=== PATIENT | female | born 1965 | race Caucasian/White ===

== ENCOUNTER 2018-08-13 01:06 | Outpatient (CLI) | payer MEDICARE, MEDICAID, SELFPAY ==
--- NOTE | 2018-08-13 13:00 | DI.CT_ITS ---
SYMPTOM/DIAGNOSIS: LLL LUNG NODULE, R91.[address]: A noncontrast CT scan of the chest was performed. Comparison is made with . The thoracic aorta is of normal caliber. Heart size is within normal limits. No significant pericardial effusion is seen. No significant mediastinal or hilar adenopathy is present on this noncontrast examination. No axillary adenopathy is identified. No pleural effusion or pneumothorax is identified. There has been no change in the size of the well circumscribed nodule adjacent to the major fissure in the left lower lobe. No new pulmonary nodules are identified. No pulmonary infiltrates are seen. The tracheobronchial tree is unremarkable. Degenerative changes are seen in the spine. IMPRESSION: Stable left pulmonary nodule.
== END 2018-08-13 01:26 ==
PROVIDERS: PCP Family Medicine; Visit Provider Family Medicine
DX: R91.8 Other nonspecific abnormal finding of lung field (principal)
CPT/HCPCS: 71250

== ENCOUNTER 2018-09-03 15:04 | Outpatient (REF) | payer MEDICARE, MEDICAID, SELFPAY ==
--- NOTE | 2018-09-03 14:50 | SKI_PTH ---
PATIENT: Manoj Galeana LOC: [facility] U#:[id number] AGE/SX: 53/F ROOM: RE09/03/[address]: Willie Espinosa DO : 1965 BED: DIS: 09/03/2018 SPEC #: [id number] RECD: 09/04/18 12:26 STATUS: TOM RELeandro #: [id number] NI: 09/03/18 14:[address]: Willie Espinosa DEPT: Surgical Specimen RECD BY: Ana Schmitz ENTERED: 09/04/18 12:27 SP TYPE: SHANE YODER DR: Jonathan Smiht Tissues: 1 - SKIN BIOPSY(SHAVE/PUNCH) 2 - SKIN BIOPSY(SHAVE/PUNCH) 3 - SKIN BIOPSY(SHAVE/PUNCH) Procedures: SKIN LEVEL 4 Comments: [id number]
== END 2018-09-03 15:24 ==
LOC: LBN 15:04
PROVIDERS: PCP Family Medicine; Visit Provider Otolaryngology Otolaryngology/Facial Plastic Surgery
DX: D22.39 Melanocytic nevi of other parts of face; D22.5 Melanocytic nevi of trunk
CPT/HCPCS: 88305

== ENCOUNTER 2018-11-29 13:13 | Outpatient (CLI) | payer MEDICARE, MEDICAID, SELFPAY ==
[2018-11-29 14:24] LABS: ESR 12 MM/HR (0-30)
[2018-11-29 14:25] LABS: Anion Gap 10.1 mmol/L (3-11); BUN 14 mg/dL (7-18); CO2 28.9 mmol/L (21.0-32.0); CREATININE 0.85 mg/dL (0.55-1.02); Chloride 104 mmol/L (98-107); Glucose 243 mg/dL (70-100); Potassium 3.9 mmol/L (3.5-5.1); Sodium 143 mmol/L (136-145)
[2018-11-29 14:46] LABS: FREE T4 1.34 ng/dL (0.76-1.46)
== END 2018-11-29 13:33 ==
PROVIDERS: PCP Family Medicine; Visit Provider Family Medicine
DX: E03.9 Hypothyroidism, unspecified (principal); M79.7 Fibromyalgia; G43.909 Migraine, unspecified, not intractable, without status migrainosus; E11.9 Type 2 diabetes mellitus without complications
CPT/HCPCS: 36415; 80048; 85652; 84439; 84443

== ENCOUNTER 2019-04-11 11:44 | Emergency (ER) | payer MEDICARE, MEDICAID, SELFPAY ==
[2019-04-11] VITALS (9 sets, daily range): BP systolic 115–137; BP diastolic 59–67; PULSE 54–60; RESP 13–19; TEMP 36.7; O2SAT 93–97
--- NOTE | 2019-04-11 12:04 | DI.RAD_ITS ---
SYMPTOM/DIAGNOSIS: CENTRAL AND EPIGASTRIC CP PA AND LATERAL CHEST: 04/11 The heart is normal in size. The lungs are clear. The mediastinal structures and pleura appear intact. CONCLUSION: Normal chest.
[2019-04-11] MEDS: Lidocaine 5% Patch 1 PATCH TP (12:15)
--- NOTE | 2019-04-11 12:18 | ED.GENADUL_ITS ---
Discharge Plan Disposition Patient Disposition: HOME Condition: Good Discharge Details Chief Complaint: Palpitatns Clinical Impression: Chest pain, Intermittent palpitations Primary Care Provider: Jonathan Smith ED Provider: Marlon Reyes Home Meds and New Rx's Prescriptions: No Action sertraline 100 MG tablet 200 mg PO DAILY RF: 0 atenolol 25 MG tablet 75 mg PO DAILY RF: 0 cetirizine 10 MG tablet 10 mg PO DAILY RF: 0 levothyroxine [Synthroid] 50 MCG tablet 50 mcg PO DAILY RF: 0 levothyroxine [Synthroid] 200 MCG tablet 200 mcg PO DAILY RF: 0 furosemide 20 MG tablet 20 mg PO DAILY RF: 0 lisinopril 40 MG tablet 40 mg PO DAILY RF: 0 rosuvastatin [Crestor] 20 MG tablet 40 mg PO DAILY RF: 0 budesonide-formoterol [Symbicort] 10.2 GM HFA aerosol inhaler 2 puff Inhalation BID RF: 0 lidocaine patches 5 % Topical PRN RF: 0 cholecalciferol (vitamin D3) 1,000 UNITS tablet 1,000 unit PO DAILY RF: 0 potassium gluconate 99 MG tablet 1 tab PO DAILY RF: 0 insulin lispro [Humalog U-100 Insulin] 100 UNIT/ML cartridge 25 unit SQ AC & HS RF: 0 hydrocodone-acetaminophen 1 TAB tablet 1 tab PO Q3H PRN PRN (Reason: Pain) Qty: 15 RF: 0 levofloxacin [Levaquin] 750 MG tablet 750 mg PO DAILY Qty: 4 RF: 0 ondansetron 4 MG tablet,disintegrating 4 mg PO BID PRN PRNQty: 8 RF: 0 Discharge Instructions Instructions: Chest Pain (ED), Palpitations (ED) Additional Instructions: If you notice any worsening of your symptoms, or any new symptoms such as vomiting, diarrhea, fever, chills, shortness of breath, chest pain, numbness, weakness, or fainting , please return immediately to the emergency department for reevaluation. Please follow up with your primary care provider as soon as possible for reassessment and reevaluation. As always, it was a pleasure participating in your medical care today. Referrals: Jonathan Smith [Primary Care Provider] - Medical Decision Making This is a 54-year-old female with past medical history of previous obesity, now notably improved with gastric bypass, thyroid secondary to Graves' disease with subsequent hypothyroidism, who presents today for 3 days of mild palpitations. She has some very minimal epigastric discomfort as well. No food component. No exertional component. No significant reproducible component on exam. The patient does have continued sensation of palpitations, however review of the monitor during these episodes shows no evidence of ectopy or other abnormality. EKG is otherwise unremarkable. With the patient's risk factors, a ge and obesity we will evaluate for cardiac etiology to her symptoms. We will give Toradol, and Lidoderm patch and reassess. 4:12 PM Patient's laboratory work-up has returned, no significant white count, hemoglobin stable, normal platelets, normal electrolytes, normal renal function, troponin x2 is less than 0.05, repeat EKG unremarkable. Magnesium normal, proBNP and TSH normal. Lipase normal. Patient states that she feels well. She still has that atypical sensation, however continued telemetry and EKGs show no actual cardiographic correlation. I feel her symptoms are inconsistent with ACS, and potentially unrelated to the heart. No clinical evidence of dissection or aneurysm on exam or with history. Patient feels very reassured with the benign work-up at this point. There may be a component of muscle spasm or GI reflux that may be causing her symptoms. At this point after serial troponins and EKGs, and otherwise benign work-up we did discuss further options, and the patient feels ready to go home. She would like to be discharged at this time. Patient will be discharged with close follow-up with her PCP. We discussed reasons for which to promptly return and red flags which return she understands. I have extensively reviewed the treatment plan and discharge instructions with the patient. I have addressed all patient concerns at this time. The patient was made aware of what symptoms to monitor for that would warrant a return to the emergency department. Discussed the plan with the patient, they demonstrate verbal understanding and agreement with our assessment and plan at this time. EKG 11: 54 Rate 56, intervals normal, sinus bradycardia, no significant ST elevations or depressions, there is an inverted T wave in V1, as well as lead III. Q wave is present in lead III. EKG 15: 16 Rate 51, sinus bradycardia, intervals normal, no significant ST elevations or depressions. Inverted T wave in V1 as well as lead III. No evidence of ACS, dysrhythmia, or other significant abnormality. Exam(s) a RAD:XR chest 2V PA & lateral SYMPTOM/DIAGNOSIS: CENTRAL AND EPIGASTRIC CP PA AND LATERAL CHEST: 04/11 The heart is normal in size. The lungs are clear. The mediastinal structures and pleura appear intact. CONCLUSION: Normal chest. Ordered By: Marlon Reyes DO CC: WILDA General Date/Time Provider Initiated Documentation: 04/11/19 11:56 . HPI Narrative: This is a 54-year-old female with a past medical history of Graves' disease, and now subsequent hypothyroidism, gastric bypass, who presents today for evaluation of palpitations. The patient states that for the last 3 days she has had mild palpitations which she describes as a light fluttery sensation in her upper chest. She admits to a very minimal discomfort, but denies any chest pain, chest tightness, chest heaviness, arm neck or shoulder pain, shortness of breath, cough, pleuritic chest pain, or other complaints. The pain and symptoms are slightly worsened when she sits upright. There is no exertional component though. She denies any history of cardiac disease. Denies PE risk factors such as recent long car rides, immobilization, recent surgery, prior history of DVT or PE, family history of PE or DVT, morbid obesity, exogenous estrogen and smoking, hemoptysis, history of cancer. She denies any tobacco abuse. She denies any history of arrhythmia. Related Data Home Medications Medication Instructions Recorded Confirmed Lidocaine Patches 5 % TOPICAL PRN 08/23/13 06/19/16 atenolol 75 mg PO DAILY tab-cap 08/23/13 06/19/16 budesonide-formoterol [Symbicort] 2 puff INHALATION BID inhaler 08/23/13 06/19/16 cetirizine 10 mg PO DAILY tab-cap 08/23/13 06/19/16 furosemide 20 mg PO DAILY tab-cap 08/23/13 06/19/16 levothyroxine [Synthroid] 50 mcg PO DAILY tab-cap 08/23/13 06/19/16 levothyroxine [Synthroid] 200 mcg PO DAILY tab-cap 08/23/13 06/19/16 lisinopril 40 mg PO DAILY tab-cap 08/23/13 06/19/16 rosuvastatin [Crestor] 40 mg PO DAILY tab-cap 08/23/13 06/19/16 sertraline 200 mg PO DAILY tab-cap 08/23/13 06/19/16 cholecalciferol (vitamin D3) 1,000 unit PO DAILY 12/22/15 06/19/16 hydrocodone-acetaminophen 1 tab PO Q3H PRN PRN #15 tab 12/22/15 06/19/16 insulin lispro [Humalog U-100 25 unit SQ AC & HS 12/22/15 06/19/16 Insulin] potassium gluconate 1 tab PO DAILY 12/22/15 06/19/16 levofloxacin [Levaquin] 750 mg PO DAILY #4 tablet 06/13/16 06/19/16 ondansetron 4 mg PO BID PRN PRN #8 tabef 06/13/16 06/19/16 Previous Rx's Medication Instructions Recorded hydrocodone-acetaminophen 1 tab PO Q3H PRN PRN #15 tab 12/22/15 levofloxacin [Levaquin] 750 mg PO DAILY #4 tablet 06/13/16 ondansetron 4 mg PO BID PRN PRN #8 tabef 06/13/16 Allergies Allergy/AdvReac Type Severity Reaction Status Date / Time latex Allergy Severe Skin Rash Unverified 06/19/16 16:26 Sulfa (Sulfonamide Allergy Severe vomiting/ra Unverified 06/19/16 16:26 Antibiotics) sh/migraine amlodipine AdvReac Severe suicadal Unverified 06/19/16 16:26 thoughts fluoxetine HCl [From Prozac] AdvReac Severe anxiety/peggy Unverified 06/19/16 16:26 cidal metformin AdvReac Severe diarrhea Unverified 06/19/16 16:26 pregabalin [From Lyrica] AdvReac Severe flatulence/ Unverified 06/19/16 16:26 suicidal sumatriptan [From Imitrex] AdvReac Severe suicidal Unverified 06/19/16 16:26 tramadol AdvReac Severe anxiety,suicidal Unverified 06/19/16 16:26 thoughts General Stated Complaint: Palpitatns RICHAR: 2 Review of Systems Review of Systems All systems reviewed & are unremarkable except as noted in HPI and below PFSH Medical History Asthma Back pain Depression Diabetes type 2, controlled Diarrhea GERD (gastroesophageal reflux disease) Ganglion cyst of wrist Hiatal hernia Hx of ovarian cyst Hyperlipidemia Hypertension Hypothyroidism Migraine Morbid obesity with BMI of 50.0-59.9, adult Peripheral neuropathy Risk for falls Sleep apnea Urinary incontinence Surgical History ganglion cyst excision Social History Smoking/Tobacco Use Status: Never Drug use: Never Do you feel safe at home: Yes Do you feel safe in your relationship?: Yes Exam Narrative Exam Narrative: 1.Const: Well-nourished, Well-developed, appearing stated age 2.Eyes: PERRL, no conjunctival injection, and symmetrical lids. 3.ENT: Atraumatic external nose and ears. Moist MM. Neck: Symmetric, trachea midline, No thyromegaly. 4.CVS: +S1/S2, No murmurs or gallops. Peripheral pulses 2+ and equal in all extremities. Brisk capillary refill in all extremities. 5.RESP: Unlabored respiratory effort. Clear to auscultation bilaterally. No wheezes rales or rhonchi 6.GI: Soft, Nontender/Nondistended, No hepatosplenomegaly. No guarding or rebound. No pain at McBurney's point, negative Garcia sign. 7.MSK: Normocephalic/Atraumatic, Extremities w/o deformity or ttp No cyanosis or clubbing, Normal movement of all extremities 8.Skin: Warm, Dry. No rashes or lesions. 9.Neuro: nursing home aide II-XII grossly intact. Sensation grossly intact, no focal neurologic deficits. 10.Psych: (AAO) x3. Appropriate mood and affect Course Vital Signs Temperature 36.7 C 04/11/19 11:57 Pulse 59 L 04/11/19 11:57 Respiratory Rate 14 04/11/19 11:57 Blood Pressure 137/64 04/11/19 11:57 Temperature 36.7 C 04/11/19 11:57 Temperature Source Skin 04/11/19 11:57 Pulse 59 L 04/11/19 11:57 Respiratory Rate 14 04/11/19 11:57 Respiratory Effort 04/11/19 12:00 Blood Pressure 137/64 04/11/19 11:57 Oxygen Delivery Method Room Air 04/11/19 11:57 Oxygen Flow Rate 0 04/11/19 11:57
[2019-04-11 12:22] LABS: Abs Immature Grans 0.03 k/cumm (0.0-0.09); Absolute Basophil Count 0.04 k/cumm (0.0-0.2); Absolute Eosinophil Count 0.15 k/cumm (0.0-0.7); Absolute Lymphocyte Count 2.17 k/cumm (1.2-3.4); Absolute Monocyte Count 0.46 k/cumm (0.11-0.7); Absolute Neutrophil Count 4.48 k/cumm (1.2-6.7); Basophils % 0.5; HCT 45.7 % (36.0-46.0); HGB 15.7 g/dL (12.0-15.5); Immature Grans % 0.4; Lymphocytes % 29.6; Mean Corp. HGB Concentration 34.4 g/dL (32.0-36.0); Mean Corpuscular Hemoglobin 29.1 pg (27.0-33.0); Mean Corpuscular Volume 84.6 fL (80-95); Mean Platelet Volume 11.4 fL (8.0-11.0); Monocytes % 6.3; Neutrophils % 61.2; Platelet Count 203 x1000/uL (130-400); RBC Distribution Width 13.1 % (11.7-14.6); White Blood Cell Count 7.33 k/cumm (4.4-10.8)
[2019-04-11 12:39] LABS: PTT Activated 20.8 sec (21.0-31.4); Prothrombin Time 9.9 sec (9.3-11.0)
[2019-04-11 12:47] LABS: ALT 36 U/L (12-78); AST 15 U/L (15-37); Albumin 3.8 g/dL (3.4-5.0); Alkaline Phosphatase 116 U/L (46-116); Anion Gap 9.9 mmol/L (3-11); BUN 14 mg/dL (7-18); Bilirubin, Total 1.2 mg/dL (0.2-1.0); CO2 27.1 mmol/L (21.0-32.0); CREATININE 0.73 mg/dL (0.55-1.02); Calcium 9.8 mg/dL (8.5-10.1); Chloride 105 mmol/L (98-107); Glucose 165 mg/dL (70-100); Lipase 122 U/L (73-393); Potassium 3.9 mmol/L (3.5-5.1); Sodium 142 mmol/L (136-145); TSH (W/Ref FT4) 0.37 uIU/mL (0.358-3.74); Total Protein 7.4 g/dL (6.4-8.2)
[2019-04-11 12:51] LABS: Troponin I < 0.05 ng/mL (0.00-0.06)
[2019-04-11 13:21] LABS: NT-proBNP 18 pg/mL
[2019-04-11] MEDS: Ketorolac 30 MG/ML VIAL IVP (13:38)
[2019-04-11 14:54] LABS: Magnesium 1.9 mg/dL (1.8-2.4)
[2019-04-11 15:45] LABS: Troponin I < 0.05 ng/mL (0.00-0.06)
== END 2019-04-11 16:23 | disposition home or self-care (01) ==
PROVIDERS: Emergency Provider Student in an Organized Health Care Education/Training Program; PCP Family Medicine
DX: R07.9 Chest pain, unspecified (principal); R00.2 Palpitations; R00.1 Bradycardia, unspecified; Z98.0 Intestinal bypass and anastomosis status
CPT/HCPCS: 36415; 80053; 83690; 93005; 96374; 99285; 71046; 83735; 83880; 84443; 84484; 85025; 85610; 85730; 93010; J1885

== ENCOUNTER 2019-05-16 10:10 | Outpatient (CLI) | payer MEDICARE, MEDICAID, SELFPAY ==
--- NOTE | 2019-05-16 09:56 | DI.RAD_ITS ---
SYMPTOM/DIAGNOSIS: PAIN RIGHT KNEE: Narrowing of the medial tibial femoral joint space, articular sclerosis and periarticular hypertrophic spurring is demonstrated. Also as judged from the lateral projection, there are severe degenerative changes involving the patellofemoral joint. SUMMARY: Findings consistent with severe DJD
--- NOTE | 2019-05-16 09:56 | DI.RAD_ITS ---
SYMPTOM/DIAGNOSIS: PAIN LEFT KNEE: Narrowing of the medial tibial femoral joint space is noted. There is articular sclerosis and mild divine-articular hypertrophic spurring. Also degenerative changes involving the patellofemoral joint are apparent. SUMMARY: Findings consistent with moderately severe DJD
== END 2019-05-16 10:30 ==
PROVIDERS: PCP Family Medicine; Referring Provider Family Medicine; Visit Provider Orthopaedic Surgery
DX: M25.561 Pain in right knee (principal); M17.11 Unilateral primary osteoarthritis, right knee; M25.562 Pain in left knee; M17.12 Unilateral primary osteoarthritis, left knee; E11.9 Type 2 diabetes mellitus without complications; I10 Essential (primary) hypertension
CPT/HCPCS: 99211; 99213; 73560

== ENCOUNTER 2019-06-20 03:41 | Outpatient (CLI) | payer MEDICARE, MEDICAID, SELFPAY ==
--- NOTE | 2019-06-20 15:00 | DI.MAMMO_ITS ---
SYMPTOMS/DIAGNOSIS: SCREENING, Z12.39 MAMMOGRAM: Mammograms were interpreted according to the usual protocol including computer analysis with CAD system, tomosynthesis and C view imaging. The breasts are of moderate density with fairly symmetrical distribution of fibroglandular tissue. No dominant mass or clumped microcalcification is identified in either breast. Current examination is compared with previous examinations including October 2017 and there has been no gross interval change in appearance in comparison with the previous studies. CONCLUSION: No specific evidence of malignancy at this time. Routine screening examinations are suggested at yearly intervals in this age group according to the ACS/ACR guidelines. Category 1, breast density category B. MQSA ASSESSMENT OF FINDINGS: Negative. Category 1. Patient will receive a letter notifying them of these results. BI-RADS category B. There are scattered areas of fibroglandular density.
== END 2019-06-20 04:01 ==
PROVIDERS: PCP Family Medicine; Visit Provider Family Medicine
DX: Z12.31 Encounter for screening mammogram for malignant neoplasm of breast (principal)
CPT/HCPCS: 77063; 77067

== ENCOUNTER 2020-07-07 17:29 | Outpatient (REF) | payer MEDICARE, MEDICAID, SELFPAY ==
--- NOTE | 2020-07-07 11:00 | PAPFT_PTH ---
PATIENT: Manoj Galeana LOC: [facility] U#:[id number] AGE/SX: 55/F ROOM: RE07/07/[address]: Bijal Grace : 1965 BED: DIS: 07/07/2020 SPEC #: [id number] RECD: 07/07/20 18:19 STATUS: TOM RELeandro #: [id number] NI: 07/07/20 11:[address]: Bijal Grace DEPT: [facility] Cytology RECD BY: Ana Schmitz ENTERED: 07/07/20 18:20 SP TYPE: PAPFT OTHR DR: Jonathan Smith Tissues: 1 - CX/ENDOCX FOR PAP SMEARS Procedures: PAP THIN PREP/UVM Screening HPV DNA PROBE Comments: [id number]
[2020-07-07 19:39] LABS: ALT 32 U/L (14-59); AST 12 U/L (15-37); Albumin 3.9 g/dL (3.4-5.0); Alkaline Phosphatase 105 U/L (46-116); Anion Gap 5.8 mmol/L (3-11); BUN 18 mg/dL (7-18); Bilirubin, Total 0.9 mg/dL (0.2-1.0); CO2 31.2 mmol/L (21.0-32.0); Calculated LDL 78 mg/dL (<100); Chloride 107 mmol/L (98-107); Cholesterol 155 mg/dL (<200); Glucose 158 mg/dL (74-106); HDL Cholesterol 52 mg/dL (40-60); Sodium 144 mmol/L (136-145); TSH (W/Ref FT4) 1.14 uIU/mL (0.36-3.74); Total Protein 6.7 g/dL (6.4-8.2); Triglyceride 128 mg/dL (<150)
== END 2020-07-07 17:49 ==
LOC: NCHCN 17:29
PROVIDERS: PCP Family Medicine; Visit Provider Nurse Practitioner Family
DX: E11.9 Type 2 diabetes mellitus without complications (principal); E78.5 Hyperlipidemia, unspecified; Z68.42 Body mass index [BMI] 45.0-49.9, adult; E03.9 Hypothyroidism, unspecified; Z12.4 Encounter for screening for malignant neoplasm of cervix; Z11.51 Encounter for screening for human papillomavirus (HPV)
CPT/HCPCS: 80053; 80061; 88142; 84443; 87624

== ENCOUNTER 2020-07-08 13:15 | Outpatient (CLI) | payer MEDICARE, MEDICAID, SELFPAY ==
--- NOTE | 2020-07-08 | DI.RAD_ITS ---
EXAM: XR HIP RT COMPLETE AP PELVIS INDICATION: RT HIP PAIN, M25.551. COMPARISON: No exams were available for comparison TECHNIQUE: 2D digital imaging was performed. FINDINGS: The right hip is fairly well maintained with only mild subchondral sclerosis. The bones are intact. No acute fracture or dislocation. Degenerative changes are seen in the lower lumbar spine and sacro iliac joints. The bones are normally mineralized. The soft tissues are unremarkable. IMPRESSION: DATA REPOSITORY: RADIATION DOSE DELIVERED:
== END 2020-07-08 13:35 ==
PROVIDERS: PCP Family Medicine; Visit Provider Family Medicine
DX: M25.551 Pain in right hip (principal)
CPT/HCPCS: 73502

== ENCOUNTER 2020-09-15 18:44 | Outpatient (REF) | payer MEDICARE, MEDICAID, SELFPAY | END 2020-09-15 19:04 | LOC: NCHCN 18:44 | PROVIDERS: PCP Family Medicine; Visit Provider Nurse Practitioner Family | DX: N39.0 Urinary tract infection, site not specified (principal) | CPT/HCPCS: 87077; 87086; 87186 ==

== ENCOUNTER → 2020-12-31 13:04 | Outpatient (BNVA) | payer MEDICARE, MEDICAID, SELFPAY | PROVIDERS: PCP Family Medicine; Referring Provider Family Medicine; Visit Provider Physical Therapy Assistant | DX: Z12.11 Encounter for screening for malignant neoplasm of colon (principal); Z86.010 Personal history of colon polyps ==

== ENCOUNTER 2021-01-08 01:54 | Outpatient (CLI) | payer MEDICARE, MEDICAID, SELFPAY ==
[2021-01-08 12:04] LABS: Source Nasal/Nares
[2021-01-08 14:36] LABS: COVID-19 PCR Negative (Negative)
== END 2021-01-08 01:55 | disposition home or self-care (01) ==
LOC: LBO 01:55
PROVIDERS: PCP Family Medicine; Visit Provider Surgery
DX: Z20.822 Contact with and (suspected) exposure to COVID-19 (principal); Z01.818 Encounter for other preprocedural examination
CPT/HCPCS: 87635

== ENCOUNTER 2021-01-11 08:17 | Day surgery (SDC) | payer MEDICARE, MEDICAID, SELFPAY ==
--- NOTE | 2021-01-11 06:30 | W.COLOREPORT ---
Date of service: 01/11/21 Time of Service: 09:57 Colonoscopy Report Date of procedure: 01/11/21 Pre-op diagnosis general: Hx of polyps Post-op diagnosis procedure note: same Procedure: Colonoscopy with polypectomy Surgeon: Daija Nye Anesthesia Type: General:No Airway (ASA 3/Guido Navas, JAKUB) Estimated blood loss (mL): 3 Pathology: other (sigmoid colon) Complications: None Disposition: same day Indications: The patient is here for Colonoscopy pre-op. Her last screening was in 2014 at [facility] [place], which was remarkable for tubular adenomatous and sessile serrated adenoma. She has no family history of colon cancer. She expresses frequently feel constipated and full. -Discussed colonoscopy bowel prep as well as the procedure. Discussed possible complications of the procedure to include bleeding, pain, perforation, missed small lesion/polyp, sore throat, aspiration and adverse reaction to the medications. Questions were answered to patient?s satisfaction. No guarantees were implied or given. Prep: Miralax/Dulcolax Procedure Start Time: : Procedure End Time: 10:23 Retraction Time: 13 minutes Findings: One polyp in the sigmoid colon Procedure Description: After informed consent was obtained the patient was taken to the procedure room and placed in a left decubitous position. Monitors were applied and a time out was done. The patients name, date of , procedure, allergies to medications and metal in their body was reviewed. The patient was then sedated. Once sedated and comfortable a rectal exam was done. External exam revealed a hemorrhoidal skin tag at the 12 o'clock position. Internal exam revealed a normal sphincter tone and no palpable masses. The scope was then introduced and retro-flexed. Hemorrhoidal skin tags were noted on retroflexion. No polyps or masses were identified on retro-flexion. The scope was then advanced to the cecum without difficulty. The ileocecal vlave and appendiceal orifice were identified. The prep was adequate. The scope was then slowly retracted over 13 minutes back into the rectum. Polyps were removed with cold forceps in the sigmoid colon. There was no diverticulosis noted. The scope was removed and the patient was woken up and taken back to Same day surgery in stable condition. The patient tolerated the procedure well and there were no immediate complications. Follow up: The patient should follow up in 5 years unless they develop changes in bowel habits or other new gastrointestinal complaints.
--- NOTE | 2021-01-11 06:31 | W.PM.DSUDISC ---
Discharge Plan Disposition Patient Disposition: HOME Condition: Good Discharge Details Reason For Visit: Colonoscopy Attending Provider: Daija Nye Primary Care Provider: Jonathan Smith Home Meds and New Rx's Prescriptions: Continued calcium citrate 1,000 mg tablet 1,000 mg PO DAILY RF: 0 levothyroxine [Synthroid] 200 MCG tablet 200 mcg PO DAILY RF: 0 rosuvastatin [Crestor] 20 MG tablet 40 mg PO DAILY RF: 0 atenolol 25 mg tablet 50 mg PO DAILY RF: 0 metformin 500 mg tablet 500 mg PO DAILY RF: 0 duloxetine 30 mg capsule,delayed release(DR/EC) 30 mg PO DAILY RF: 0 cholecalciferol (vitamin D3) 25 mcg (1,000 unit) capsule 25 mcg PO DAILY RF: 0 Januvia 100 mg tablet 100 mg PO DAILY RF: 0 mecobalamin (vitamin B12) 1,000 mcg tablet,chewable 1,000 mcg PO DAILY RF: 0 levalbuterol tartrate [Xopenex HFA] 45 mcg/actuation HFA aerosol inhaler 2 inh inhalation Q6H RF: 0 gabapentin 100 mg capsule 100 mg PO TID RF: 0 albuterol sulfate [Ventolin HFA] 90 mcg/actuation HFA aerosol inhaler 2 puff inhalation Q6H PRNRF: 0 loratadine [Allergy Relief (loratadine)] 10 mg tablet 10 mg PO DAILY RF: 0 Humalog U-100 Insulin 100 UNIT/ML cartridge 25 unit SQ AC & HS RF: 0 ondansetron 4 MG tablet,disintegrating 4 mg PO BID PRN PRNQty: 8 RF: 0 Discontinued polyethylene glycol 3350 17 gram/dose powder 238 g PO ONCE Qty: 238 RF: 0 bisacodyl [Dulcolax (bisacodyl)] 5 mg tablet,delayed release (DR/EC) 5 mg PO ONCE Qty: 4 RF: 0 Discharge Instructions Instructions: Colorectal Polyps (DC), Hemorrhoids (DC) Additional Instructions: Findings: One small polyp external hemorrhoidal skin tag Internal hemorrhoidal skin tags Follow up: 5 years Please call if you develop: fevers >101.5 Nausea or Vomiting Abdominal pain that is not transient DAY SURGERY UNIT POST ENDOSCOPY INSTRUCTIONS 1. Because there will be medication in your system for the next 24 hours, you may feel a little sleepy. Your coordination will be affected. Therefore: a. Do not drive or operate dangerous equipment for 24 hours. b. Do not drink alcohol beverages for 24 hours (not even beer). c. Plan to go home and rest for the day. 2. Generally there are no restrictions on your activity after a day or so has gone by, but you may feel a bit fatigued for a few days. 3 After you arrive home you may have a light meal and return to a normal diet as you can tolerate it without feeling sick to your stomach. 4. After surgery, you may feel pain or discomfort. This should be only transient, but if it persists please contact your doctor. 5. If there are any questions regarding the findings of your procedure, please feel free to contact your doctor. 6. If you are unable to contact your doctor with a problem, contact the hospital at [phone]. 7. Continue all your regular medications unless directed otherwise. I understand the above instructions and have no questions. Signature of Patient or Responsible Adult Escort Date/Time Name of Responsible Adult Escort Signature of Nurse Date/Time Activity:: Activity as Tolerated Diet:: high fiber Discharge Orders Discharge Orders: Discharge Order (Routine); Ordered 01/11/21 Ordered By: Daija Nye
[2021-01-11 08:24] VITALS: BP 138/75; PULSE 68; RESP 16; TEMP 36.6; O2SAT 95
[2021-01-11] MEDS: Lactated Ringers 1,000 ML 80 ML IV (08:57)
--- NOTE | 2021-01-11 09:59 | BOWEL_PTH ---
PATIENT: Manoj Galeana LOC: [facility] U#:[id number] AGE/SX: 55/F ROOM: RE01/11/[address]: Daija Nye MD : 1965 BED: DIS: 01/11/2021 SPEC #: [id number] RECD: 01/11/21 13:01 STATUS: TOM RE #: [id number] NI: 01/11/21 09:[address]: Daija Nye DEPT: Surgical Specimen RECD BY: Ana Schmitz ENTERED: 01/11/21 13:02 SP TYPE: Bowel OTHR DR: Jonathan Smith Tissues: 1 - BIOPSY BOWEL Procedures: GROSS AND MICRO LEVEL 4 Comments: [id number]
[2021-01-11 10:54] VITALS: BP 130/70; PULSE 70; RESP 16; TEMP 36.7; O2SAT 94
== END 2021-01-11 11:15 | disposition home or self-care (01) ==
LOC: SUR 08:18
PROVIDERS: PCP Family Medicine; Visit Provider Surgery
PROC: 0DJD8ZZ Inspection of Lower Intestinal Tract, Via Natural or Artificial Opening Endoscopic (ICD-10-PCS; CPT 45378; principal; 2021-01-11 09:45)
DX: Z12.11 Encounter for screening for malignant neoplasm of colon (principal); Z86.010 Personal history of colon polyps; D12.5 Benign neoplasm of sigmoid colon; K64.4 Residual hemorrhoidal skin tags; I10 Essential (primary) hypertension
CPT/HCPCS: 45380; 88305; J2001

== ENCOUNTER → 2021-02-11 09:02 | Outpatient (BNVA) | payer MEDICARE, MEDICAID, SELFPAY | PROVIDERS: PCP Family Medicine; Referring Provider Family Medicine; Visit Provider Student in an Organized Health Care Education/Training Program | DX: M17.31 Unilateral post-traumatic osteoarthritis, right knee (principal); E66.9 Obesity, unspecified | CPT/HCPCS: 99213 ==

== ENCOUNTER 2021-03-03 15:16 | Outpatient (CLI) | payer MEDICARE, MEDICAID, SELFPAY ==
--- NOTE | 2021-03-03 14:45 | DI.RAD_ITS ---
Exam(s) XR KNEE RT 1V EXAM: XR KNEE RT 1V CLINICAL HISTORY: PRE OP R TKA. TECHNIQUE: 2D digital imaging was performed. COMPARISON: CR XR knee RT 2V AP,lat from 05/16/2019 FINDINGS: Lateral view reveals advanced degenerative changes. No obvious fractures. No obvious joint effusion IMPRESSION: DATA REPOSITORY: RADIATION DOSE DELIVERED:
--- NOTE | 2021-03-03 15:50 | DI.RAD_ITS ---
Exam(s) XR STANDING ALIGNMENT EXAM: XR STANDING ALIGNMENT CLINICAL HISTORY: PRE OP R TKA. TECHNIQUE: 2D digital imaging was performed. COMPARISON: CR XR knee RT 2V AP,lat from 05/16/2019 CR XR knee LT 2V AP,lat from 05/16/2019 CR XR knee LT 2V AP,lat from 05/16/2019 CR XR HIP RT COMPLETE AP PELVIS from 07/08/2020 FINDINGS: Hips appear unremarkable. Advanced degenerative changes are noted in the right knee moderate degener ative changes in the left knee. Right knee solvent is tricompartmental. Most prominent degenerative changes in the left knee is in the medial compartment. Also moderate degenerative changes in the pa tellofemoral and mild degenerative changes in the lateral compartment. Ankles appear unremarkable. Talar domes unremarkable. IMPRESSION: DATA REPOSITORY: RADIATION DOSE DELIVERED:
== END 2021-03-03 15:17 | disposition home or self-care (01) ==
LOC: DIORS 15:17
PROVIDERS: PCP Family Medicine; Referring Provider Family Medicine; Visit Provider Physician Assistant
DX: M25.561 Pain in right knee (principal); M17.11 Unilateral primary osteoarthritis, right knee
CPT/HCPCS: 73560; 77073

== ENCOUNTER 2021-03-12 02:09 | Outpatient (CLI) | payer MEDICARE, MEDICAID, SELFPAY ==
[2021-03-12 11:17] LABS: Source Nasal/Nares
[2021-03-12 18:41] LABS: COVID-19 PCR Negative (Negative)
== END 2021-03-12 02:10 | disposition home or self-care (01) ==
PROVIDERS: PCP Family Medicine; Visit Provider Student in an Organized Health Care Education/Training Program
DX: Z20.822 Contact with and (suspected) exposure to COVID-19 (principal); Z01.818 Encounter for other preprocedural examination
CPT/HCPCS: 87635

== ENCOUNTER 2021-03-12 02:10 | Outpatient (CLI) | payer MEDICARE, MEDICAID, SELFPAY ==
[2021-03-12 10:35] LABS: HCT 45.4 % (36.0-46.0); HGB 15.2 g/dL (11.2-15.7); MCH 28.4 pg (27.0-33.0); MCHC 33.5 % (32.0-36.0); MCV 84.7 fL (80-95); MPV 10.9 fL (8.0-11.0); Platelet Count 228 10^3/uL (130-400); RBC 5.36 10^6/uL (3.93-5.22); RDW 12.3 % (11.7-14.6); RDW-SD 37.7 fL
[2021-03-12 10:55] LABS: Hemoglobin A1C 8.5 % (<5.7)
[2021-03-12 12:14] LABS: Anion Gap 7.2 mmol/L (3-11); BUN 10 mg/dL (7-18); CO2 29.8 mmol/L (21.0-32.0); CREATININE 0.6 mg/dL (0.55-1.02); Calcium 9.9 mg/dL (8.5-10.1); Chloride 107 mmol/L (98-107); Glucose 98 mg/dL (74-106); Sodium 144 mmol/L (136-145)
== END 2021-03-12 02:11 | disposition home or self-care (01) ==
LOC: LBO 02:11
PROVIDERS: PCP Family Medicine; Visit Provider Student in an Organized Health Care Education/Training Program
DX: M25.561 Pain in right knee (principal); M17.31 Unilateral post-traumatic osteoarthritis, right knee; E11.9 Type 2 diabetes mellitus without complications; I10 Essential (primary) hypertension; Z01.818 Encounter for other preprocedural examination; Z01.812 Encounter for preprocedural laboratory examination
CPT/HCPCS: 36415; 80048; 85027; 87635; 83036

== ENCOUNTER 2021-08-04 03:35 | Outpatient (CLI) | payer MEDICARE, MEDICAID, SELFPAY ==
[2021-08-04 14:14] LABS: HCT 43.9 % (36.0-46.0); MCH 28.8 pg (27.0-33.0); MCHC 34.2 % (32.0-36.0); MCV 84.4 fL (80-95); MPV 10.3 fL (8.0-11.0); Platelet Count 324 10^3/uL (130-400); RDW 12.4 % (11.7-14.6); RDW-SD 37.7 fL
[2021-08-04 15:04] LABS: Anion Gap 6.6 mmol/L (3-11); BUN 12 mg/dL (7-18); CO2 29.4 mmol/L (21.0-32.0); CREATININE 0.7 mg/dL (0.55-1.02); Calcium 10.2 mg/dL (8.5-10.1); Chloride 106 mmol/L (98-107); Glucose 165 mg/dL (74-106); Potassium 4.6 mmol/L (3.5-5.1); Sodium 142 mmol/L (136-145)
== END 2021-08-04 03:36 | disposition home or self-care (01) ==
LOC: LBO 03:36
PROVIDERS: PCP Family Medicine; Visit Provider Student in an Organized Health Care Education/Training Program
DX: M25.561 Pain in right knee (principal); M17.31 Unilateral post-traumatic osteoarthritis, right knee; E11.9 Type 2 diabetes mellitus without complications; Z01.818 Encounter for other preprocedural examination; Z01.812 Encounter for preprocedural laboratory examination
CPT/HCPCS: 36415; 80048; 85027; 83036

== ENCOUNTER 2021-08-09 02:18 | Outpatient (CLI) | payer MEDICARE, MEDICAID, SELFPAY ==
[2021-08-09 12:10] LABS: Source Nasal/Nares
[2021-08-09 18:23] LABS: COVID-19 PCR Negative (Negative)
== END 2021-08-09 02:19 | disposition home or self-care (01) ==
LOC: LBO 02:18
PROVIDERS: PCP Family Medicine; Visit Provider Student in an Organized Health Care Education/Training Program
DX: Z20.822 Contact with and (suspected) exposure to COVID-19 (principal); Z01.818 Encounter for other preprocedural examination
CPT/HCPCS: 87635

== ENCOUNTER 2021-08-11 06:03 | Day surgery (SDC) | payer MEDICARE, MEDICAID, SELFPAY ==
[2021-08-11] VITALS (17 sets, daily range): BP systolic 104–153; BP diastolic 56–84; PULSE 60–80; RESP 9–18; TEMP 36–36.6; O2SAT 88–96; BMI 46.5
[2021-08-11] MEDS: Gabapentin 300 MG CAP PO (06:29)
[2021-08-11] MEDS: Acetaminophen 500 MG TAB 1000 MG PO ×2 (06:29→15:10)
[2021-08-11] MEDS: Celecoxib 200 MG CAP 400 MG PO (06:29)
[2021-08-11] MEDS: Lactated Ringers 1,000 ML 80 ML IV (06:50)
--- NOTE | 2021-08-11 07:14 | W.ANESPRE ---
General Info Date of Service Date Performed: 08/11/21 Height: 5 ft 4 in Weight: 123 kg Body Mass Index (BMI): 46.5 Surgical Procedure: Operation Date: 08/11/21 07:40 Proposed Procedures Side Surgeon p Knee Total Arthroplasty Right Brown Jimenez MD Meds Allergies and Home Medications Allergies Allergy/AdvReac Type Severity Reaction Status Date / Time latex Allergy Severe Skin Rash Unverified 08/11/21 06:19 Sulfa (Sulfonamide Allergy Severe vomiting/ra Unverified 08/11/21 06:19 Antibiotics) sh/migraine amlodipine AdvReac Severe suicadal Unverified 08/11/21 06:19 thoughts fluoxetine HCl [From Prozac] AdvReac Severe anxiety/peggy Unverified 08/11/21 06:19 cidal pregabalin [From Lyrica] AdvReac Severe flatulence/ Unverified 08/11/21 06:19 suicidal sumatriptan [From Imitrex] AdvReac Severe suicidal Unverified 08/11/21 06:19 tramadol AdvReac Severe anxiety,suicidal Unverified 08/11/21 06:19 thoughts Home Medication Medication Instructions Recorded levothyroxine [Synthroid] 200 mcg PO DAILY tab-cap 08/23/13 rosuvastatin [Crestor] 40 mg PO DAILY tab-cap 08/23/13 albuterol sulfate 90 mcg/actuation 2 puff INHALATION Q6H PRN 11/06/20 aerosol inhaler cholecalciferol (vitamin D3) 25 25 mcg PO DAILY 11/06/20 mcg (1,000 unit) capsule duloxetine 30 mg capsule,delayed 30 mg PO DAILY 11/06/20 release levalbuterol tartrate 45 2 inh INHALATION Q6H 11/06/20 mcg/actuation aerosol inhaler mecobalamin (vitamin B12) 1,000 1,000 mcg PO DAILY 11/06/20 mcg chewable tablet metformin 500 mg tablet 500 mg PO DAILY 11/06/20 calcium citrate 1,000 mg tablet 1,000 mg PO DAILY 12/31/20 atenolol 25 mg tablet 50 mg PO BID tab-cap 03/03/21 gabapentin 100 mg capsule 100 mg PO BID cap 03/03/21 insulin aspart U-100 100 unit/mL 30 unit SUBCUT QID ml 05/19/21 (3 mL) subcutaneous pen dulaglutide 0.75 mg/0.5 mL 0.75 mg SUBCUT QWEEK 03/04/21 subcutaneous pen injector insulin detemir U-100 100 unit/mL 20 unit SUBCUT QHS 03/04/21 (3 mL) subcutaneous pen Current Visit Medications: Current Medications Generic Name Dose Route Start Last Admin Trade Name Freq PRN Reason Stop Dose Admin Acetaminophen 1,000 mg 08/11/21 06:00 08/11/21 06:29 Acetaminophen 500 Mg Tab PO 1,000 mg PREOP JUAN Administration Celecoxib 400 mg 08/11/21 06:00 08/11/21 06:29 Celecoxib 200 Mg Cap PO 400 mg PREOP JUAN Administration Gabapentin 300 mg 08/11/21 06:00 08/11/21 06:29 Gabapentin 300 Mg Cap PO 300 mg PREOP JUAN Administration Tranexamic Acid 1,000 mg/ 60 mls @ 360 mls/hr 08/11/21 06:00 Sodium Chloride IVPB PREOP JUAN Tranexamic Acid 1,000 mg/ 60 mls @ 360 mls/hr 08/11/21 06:00 Sodium Chloride IVPB DIRECTED JUAN Ringer's Solution 1,000 mls @ 80 mls/hr 08/11/21 06:00 08/11/21 06:50 IV 09/09/21 23:59 80 mls/hr INFUSION JUAN Administration Cefazolin Sodium 3,000 mg/ 100 mls @ 200 mls/hr 08/11/21 06:00 Sodium Chloride IVPB 08/11/21 23:59 PREOP JUAN IV Miscellaneous Supplies 1 each 08/11/21 06:00 Iv Access IV 09/09/21 23:59 DIRECTED JUAN Sodium Chloride 0 ml 08/11/21 06:00 Normal Saline Flush 10 Ml Syr IV 09/09/21 23:59 PRN PRN Sodium Chloride 0 ml 08/11/21 06:00 Normal Saline 10 Ml Vial IJ 09/09/21 23:59 DIRECTED PRN Sterile Water 0 ml 08/11/21 06:00 Water,Injection,Sterile 10 Ml Vial IJ 09/09/21 23:59 DIRECTED PRN PFSH Active Problems Active Problems: Problem Status Onset Code Internal derangement of left knee 05/26/16 M23.92 Mucous cyst of finger 12/28/15 M67.449 Surgical menopause 08/23/13 E89.40 Neoplasm of unspecified behavior of bone, soft tissue, and skin D49.2 Osteoarthritis of both knees M17.0 Seborrheic keratosis L82.1 Serrated adenoma of colon D12.6 Actinic keratosis L57.0 Fibromyalgia M79.7 BMI 45.0-49.9, adult Z68.42 Venous insufficiency I87.2 Insomnia G47.00 Vitamin D deficiency E55.9 Post-traumatic osteoarthritis of right knee M17.31 Medical History Medical History (Updated 08/11/21 @ 06:46 by Yani Berger) Asthma Back pain Depression Diabetes type 2, controlled Diarrhea Ganglion cyst of wrist GERD (gastroesophageal reflux disease) pt. denies Hiatal hernia Hx of ovarian cyst Hx of traumatic brain injury Hyperlipidemia Hypertension Hypothyroidism Migraine Morbid obesity with BMI of 50.0-59.9, adult Peripheral neuropathy Risk for falls Sleep apnea Urinary incontinence Surgical History Surgical History ganglion cyst excision History of colonoscopy History of gastric bypass Hx of bilateral oophorectomy Hx of cholecystectomy Hx of knee surgery R knee fracture, remove hardware Tobacco Smoking/Tobacco Use Status: Never Alcohol Alcohol Intake: current Alcohol intake frequency: a few times a month Substance Use Substance use: Never Substance use type: does not use Details: alcohol: t-5 Vital Signs and Lab Results Vital Signs Most Recent Vital Signs in EMR: Most Recent Vital Signs Temp Pulse Resp BP Pulse Ox 36.6 C 60 18 134/77 95 08/11/21 06:33 08/11/21 06:33 08/11/21 06:33 08/11/21 06:33 08/11/21 06:33 Lab Results Blood Type / Crossmatch: No Data to Display Complete Blood Count: White Blood Count 11.00 10^3/uL (4.4-10.8) H 08/04/21 14:04 08/04/21 Red Blood Count 5.20 10^6/uL (3.93-5.22) 08/04/21 14:04 08/04/21 Hemoglobin 15.0 g/dL (11.2-15.7) 08/04/21 14:04 08/04/21 Hematocrit 43.9 % (36.0-46.0) 08/04/21 14:04 08/04/21 Platelet Count 324 10^3/uL (130-400) 08/04/21 14:04 08/04/21 Complete Metabolic Panel: Sodium Level 142 mmol/L (136-145) 08/04/21 14:04 08/04/21 Potassium Level 4.6 mmol/L (3.5-5.1) 08/04/21 14:04 08/04/21 Chloride Level 106 mmol/L (98-107) 08/04/21 14:04 08/04/21 Carbon Dioxide Level 29.4 mmol/L (21.0-32.0) 08/04/21 14:04 08/04/21 Blood Urea Nitrogen 12 mg/dL (7-18) 08/04/21 14:04 08/04/21 Creatinine 0.7 mg/dL (0.55-1.02) 08/04/21 14:04 08/04/21 Estimated GFR/1.73 m2 >= 60.00 (mL/min/1.73m2) 08/04/21 14:04 08/04/21 Calcium Level 10.2 mg/dL (8.5-10.1) H 08/04/21 14:04 08/04/21 Glucose Level 165 mg/dL (74-106) H 08/04/21 14:04 08/04/21 Hemoglobin A1c 8.0 % (<5.7) H 08/04/21 14:04 08/04/21 Liver Function Panel: No Data to Display Coagulation Panel: No Data to Display Cardiac Panel: No Data to Display Arterial Blood Gas: No Data to Display Venous Blood Gas: No Data to Display Pancreas Panel: No Data to Display Thyroid Panel: No Data to Display Infectious Disease: Coronavirus (COVID-19)(PCR) Negative (Negative) 08/09/21 11:55 08/09/21 Coronavirus 2019 Source Nasal/Nares 08/09/21 11:55 08/09/21 Blood Cultures: No Data to Display Toxicology Panel: No Data to Display Anesthesia Assessment and Plan Anesthesia History Personal History: No History of Anesthesia Complications Family History: No Family History of Anesthesia Complications Exercise Tolerance Exercise Tolerance: Metabolic Equivalents>4 Pertinent Negatives Pertinent Negatives: No Symptoms of GERD and No Major Cardiovascular Symptoms or Complaints Cardiac & Pulmonary Exam Cardiac Exam: Normal S1/S2 Heart Sounds Pulmonary Exam: Clear Bilateral Breath Sounds Airway Exam Known Difficult Airway: No Mallampati Class: 2 Mouth Opening: Normal (> 3cm) Thyromental Distance: Less than 3 cm Neck Range of Motion: Full ROM Neck Circumference: Normal Teeth Condition: Normal Dentition ASA Classification ASA Score: ASA 3 Emergency Case?: No NPO Status NPO Status: NPO Clears >2 hours, Solids >8 hours Anesthesia Plan Resuscitation Status: Full Code Anesthesia Technique: Spinal Anesthesia Airway Planned: Natural Airway Pain Management: Surgeon and patient request nerve block Monitors Used: Standard Monitors
--- NOTE | 2021-08-11 07:18 | W.PM.DSUDISC ---
Discharge Plan Disposition Patient Disposition: HOME Condition: Improving Discharge Details Reason For Visit: Right Knee DJD Attending Provider: Brown Jimenez Primary Care Provider: Jonathan Smith [place] Meds and New Rx's Prescriptions: New acetaminophen 500 mg tablet 1,000 mg PO Q8H PRN (Reason: pain) Qty: 90 RF: 3 aspirin 81 mg tablet,delayed release (DR/EC) 81 mg PO BID Qty: 60 RF: 0 hydromorphone 2 mg tablet 2 mg PO Q4H PRN (Reason: pain) Qty: 12 RF: 0 ibuprofen 600 mg tablet 600 mg PO TID PRN (Reason: pain) Qty: 90 RF: 3 pantoprazole 40 mg tablet,delayed release (DR/EC) 40 mg PO DAILY Qty: 30 RF: 0 cefadroxil 500 mg capsule 500 mg PO BID Qty: 14 RF: 0 docusate sodium [Colace] 100 mg capsule 100 mg PO BID PRNQty: 10 RF: 0 promethazine 12.5 mg tablet 12.5 mg PO Q6H PRNQty: 8 RF: 0 Continued insulin aspart U-100 [Novolog Flexpen U-100 Insulin] 100 unit/mL (3 mL) insulin pen 30 unit subcut QID RF: 0 Trulicity 0.75 mg/0.5 mL pen injector 0.75 mg subcut QWEEK RF: 0 Levemir FlexTouch U-100 Insuln 100 unit/mL (3 mL) insulin pen 20 unit subcut QHS RF: 0 calcium citrate 1,000 mg tablet 1,000 mg PO DAILY RF: 0 levothyroxine [Synthroid] 200 MCG tablet 200 mcg PO DAILY RF: 0 rosuvastatin [Crestor] 20 MG tablet 40 mg PO DAILY RF: 0 metformin 500 mg tablet 500 mg PO DAILY RF: 0 duloxetine 30 mg capsule,delayed release(DR/EC) 30 mg PO DAILY RF: 0 cholecalciferol (vitamin D3) 25 mcg (1,000 unit) capsule 25 mcg PO DAILY RF: 0 mecobalamin (vitamin B12) 1,000 mcg tablet,chewable 1,000 mcg PO DAILY RF: 0 levalbuterol tartrate [Xopenex HFA] 45 mcg/actuation HFA aerosol inhaler 2 inh inhalation Q6H RF: 0 albuterol sulfate [Ventolin HFA] 90 mcg/actuation HFA aerosol inhaler 2 puff inhalation Q6H PRNRF: 0 atenolol 25 mg tablet 50 mg PO BID RF: 0 gabapentin 100 mg capsule 100 mg PO BID RF: 0 Discharge Instructions Additional Instructions: Total Knee Discharge Instructions Activity: The most important activity is to walk. You should try to take short walks a few times a day. It is important that when resting you work on keeping the knee straight. Avoid putting a pillow behind the knee as this will encourage flexion. Work on range of motion exercises as provided by Physical Therapy. - Start outpatient physical therapy around 2 weeks. - You should wear the VIVIAN hose on both legs for 2 weeks. You may remove these at night. You may also use any compression sock in place of the VIVIAN hose or remove them early if they become bothersome. - Utilize [employer] to review exercises, see videos on exercises and obtain basic information pertaining to your surgery and your recovery. Dressing: Remove the Odilon wrap by 2 days after your surgery and put on the VIVIAN stocking given to you from the hospital. Keep the surgical dressing (underneath the ODILON wrap) in place for at least one week. After the first week it may be removed and replaced with light gauze and tape or nothing. The wound and dressing may get wet after 3 days but avoid soaking the dressing or otherwise it will need to be changed. Many people prefer covering the dressing with cling wrap (saran wrap) to minimize it from getting soaked. If it gets wet, just pat dry. If it starts to peel off then it will need to be changed. Medications: - You should take Tylenol and anti-inflammatory Ibuprofen as your primary pain control medications. - You have been prescribed a stronger pain medication Hydromorphone for breakthrough pain, take as needed as prescribed. - You have also been prescribed a stomach acid reduction agent Pantoprozole to help reduce stomach acid and reflux. - You have been prescribed an antibiotic, Cefadroxil, for infection prevention to take for the first week. - You also have Promethazine (Phenergan) to help with nausea and pain-related nausea. This can make you sleepy. - You will be taking Aspirin 81mg twice a day for DVT prevention unless instructed otherwise. - If you have constipation you should take Colace or Miralax (both [id number]). It takes most people 3-4 days to have a bowel movement. Follow-up: 2 weeks If you have any acute concerns or questions, please do not hesitate to contact the office at [phone]. You may contact Dr. Jimenez with any questions after hours through the hospital at [phone] or on his cell phone at [phone]. Referrals: Brown Jimenez MD [ [facility] STAFF PHYSICIAN] - Activity:: Elevate Shower/Bathe:: 72 hours Diet:: Carb Counting Discharge Orders Discharge Orders: Discharge Order (Routine); Ordered 08/11/21 Ordered By: Brown Jimenez DS: Diagnosis Discharge Diagnosis (1) Post-traumatic osteoarthritis of right knee: Status: Acute
[2021-08-11] MEDS: ceFAZolin 3,000 MG in Normal Saline 100 ML 200 MG IVPB (07:24)
--- NOTE | 2021-08-11 07:38 | NUR.NOTE ---
0730: Adductor block placed by Britta Teresa CRNA with assistance from this nurse and Guido Lawton CRNA. Vitals: 37.0, 136/67, 65, 18, 96%. Pt. denies ringing in ears, numbness around mouth or metallic taste. Nursing Note:
--- NOTE | 2021-08-11 08:00 | W.ANESNERVE ---
Nerve Block Single Injection Procedure Date and Time Date Performed: 08/11/21 Procedure Start: 07:23 Location Where Procedure Performed Procedure Location: PACU Reason Performed: Postoperative Analgesia Requesting Provider: Brown Jimenez Timeout Performed Timeout Performed: No Monitoring Used ECG, Blood Pressure and SpO2 Sterility Sterility: Hand Hygiene, Surgical Cap, Surgical Mask, Sterile Gloves, Eye Protection and Chlorhexidine Sedation Given During Procedure Sedation Given (Indicate Dose Given): No Sedation given Patient Mental Status Patient Mental Status: Awake Nerve Block 1st Nerve Block: Laterality: Right Block Type: Fascia Iliaca Needle / Catheter Used: 120mm SonoPlex II Local Anesthetic Bolus (Indicate Dose Given): Lidocaine used for local infiltration of skin, Injected in 3-5ml increments after negative blood aspiration and Bupivacaine 0.25% Dose:: 15 mL Additives (Indicate Dose Given): None Ultrasound: Sterile probe cover and gel used Ultrasound Image Saved?: Yes Nerve Stimulator: Not Used Paresthesia: None Procedure Tolerated: No Complications Procedure Outcome: Successful Performed By: Britta Pavon
[2021-08-11] MEDS: Bupivacaine 0.25% Pres-Free 30 ML VIAL (08:19)
[2021-08-11] MEDS: Normal Saline 20 ML VIAL ×2 (08:20→10:24)
[2021-08-11] MEDS: Ketorolac 30 MG/ML VIAL (08:20)
--- NOTE | 2021-08-11 09:28 | ROE_ITS ---
Date of service: 08/11/21 Time of Service: 09:28 Operative Note Operative Note DATE OF PROCEDURE: 08/11/21 PRE-OP DIAGNOSIS: Right Knee Osteoarthritis POST-OP DIAGNOSIS: same PROCEDURE: Right Total Knee Replacement SURGEON: Brown Jimenez HAND COUNTER: Edouard Anton ANESTHESIA TYPE: Spinal Refer to Anesthesia Record ESTIMATED BLOOD LOSS: 300 PATHOLOGY: none sent TOURNIQUET TIME: 0 COMPLICATIONS: None Patient was transported to: PACU Patient's condition: stable Implants: 1. Depuy Attune Cementless Cruciate Retaining Femoral Component, Size 6 2. Depuy Attune Cementless Rotating Platform Tibial Component, Size 5 3. Depuy Attune 6x6 CR/RP Poly 4. Depuy Attune Patellar Component, Size 38 Indications: I have seen Kelin in clinic for symptoms of knee arthritis, confirmed with radiographic findings. She has exhausted nonoperative methods and was having significant limitations in daily function and desired better function and less pain. I discussed the technical details of a knee replacement. I explained the risks of the procedure to include, but not limited to, bleeding, infection, pain, stiffness, fracture, damage to nerves and vessels, damage to muscles and tendons, loosening, need for repeat procedure, blood clot and cardiopulmonary demise. Despite these risks, Kelin elected to proceed. Findings: There was significant signs of arthritis throughout the knee with large osteophytes anteriorly and around the medial compartment. Procedure Description: Kelin was greeted in the preoperative holding area where the correct side was identified and marked. The consent was reviewed with the patient and signed. The history and physical was updated. All questions were answered. Preoperative medications were administered: Acetaminophen 1000mg, Celebrex 400mg, and Gabapentin 300mg. An adductor canal block was then administered by the anesthesia team in the PACU. She was taken back to the operating room. A spinal anesthestic was then administered. The patient was placed into the supine position on the operating room table. A nonsterile tourniquet was placed high onto the leg but only used for cementing. Posts were placed for positioning during the procedure. All bony prominences were well padded. Prophylactic antibiotics in the form of Cefazolin were administered. 1g of Tranxemic Acid was given intravenously wit hin 30 minutes of incision. The right leg was then prepped with Chloraprep and draped in a standard fashion with impervious stockinette. A second prep with Chloraprep was performed prior to application of Iodine impregnated skin protection. A timeout to confirm correct identity, side and site, procedure, allergies, anesthesia, and medical concerns was performed. With the knee in some flexion, a midline incision was made overlying the knee. Full thickness skin flaps were raised once the extensor mechanism was encountered. These were raised medially and laterally. Any bleeding was controlled with electrocautery. Once the extensor mechanism was fully exposed, a medial parapatellar arthrotomy was performed in a flexed position. All bleeding from the arthrotomy and the geniculate arteries was coagulated. A medial subperiosteal peel was performed with electrocautery to the midcoronal plane. Due to the significant varus deformity the entire medial tibial plateau was exposed. The fat pad was removed while keeping the patellar tendon protected. The anterior distal femur synovium was removed for later visualization. The ACL and PCL were resected and the anterior horn of the lateral meniscus was transected. The knee was then flexed with the patella everted. Large osteophytes from the tibia were removed. Large osteophytes from the femur were removed. Using a step drill, and based on preoperative templating, the femoral canal was entered. This was done with a step drill without any difficulty. The intramedullary distal femoral cut guide was inserted, set to a 5 degree valgus cut and 9mm cut thickness. The distal femoral cut guide was then held in position and pinned. With the soft tissues protected, the distal cut was performed. This was passed over a few times to ensure a planar cut. I then turned attention to the tibia. The extramedullary guide was placed onto the leg. The distal aspect was slid medial to adjust for position of center of ankle and stay in line with shaft of the tibia. Approximately 3-5 degrees of posterior slope was kept in the proximal cutting guide. The center of the guide was aligned with the PCL. The stylus was used to assess cut thickness. The medial side, most involved side, was set for a 2mm cut. This was then held in position and pinned into place with 2 additional pins and a cross pin for stability. The medial and lateral collateral ligaments were protected and the cut was performed. With this completed, it was assessed and noted to be of appropriate dimensions. The guide was removed. A spacer block was inserted and the knee was brought into extension. It was difficult to insert the 5 mm spacer block and therefore I took a second from the proximal tibia taking of another 1.5 mm. Then, the 6mm spacer block provided full extension, without hyperextension and with stability of both the medial and lateral collateral ligaments was assessed. The pins from the femur and the tibia were then removed. The distal femur was then sized. The anterior stylus was placed onto the lateral ridge of the anterior femur. This indicated a size 6 femur. The external rotation of the guide was adjusted to 3 degrees to match the epicondylar axis, perpendicular to [employer]?s line. The 4-in-1 cutting guide was the placed. The posterior medial femur cut was evaluated and appeared of good thickness. The spacer block was inserted underneath the cutting guide and stability was confirmed in 90 degrees of flexion. An ankush wing was used to confirm appropriate position of the anterior cut to avoid notching. This cutting guide was ensured to be flush on the cut surface and then pinned into place with headed pins. While protecting the soft tissues, quad tendon, and collateral ligaments, the anterior and posterior cuts were performed with a saw. The central two pins were removed and the posterior and anterior chamfers were cut next. The notch-cutting guide was placed. This was pinned to lateralize the femoral component as much as possible while keeping it flush on the cut surface. This was then pinned into position. A reciprocating saw was used to make the notch cut. A rasp smoothed the cut surfaces. The medial and lateral menisci were removed. A trial femoral component was then inserted, impacted down to the cut surfaces, and the lug holes were drilled. A provisional trial tibial component was placed and the knee was brought through range of motion. There was noted to be excellent extension and flexion. There was no significant instability. The patella was tracking without thumbs. A size 6mm polyethylene component provided the best range of motion and stability with less than 2mm gapping with medial and lateral stress and full extension without significant hyperextension. The knee was then brought into extension and the patella was measured as 26mm. Using the patellar clamp and cut guide, this was resected to a flat surface with at least 13mm of thickness remaining. The size 38 patella fit the best. This was oriented and then clamped into position. The lugs were drilled. One batch of high viscosity cement was prepared with vacuum assistance. After the cement was ready a small amount was placed on the cut surface of the patella and the patellar button was clamped into position and held. Then, the tibial cut surface was fully exposed. The tibia was then sized as a 5. The tibia had been previously marked during trialing to correspond to the center of the tibial component to help with rotation. The trial was aligned to this edouard, approximately rotated to the medial 1/3rd of the tibial tubercle. The trial was pinned into place. The tibia was prepared with a reamer and a keel punch and lug holes. The trial components were removed. The final components were opened on the back table. The periosteal and capsular tissues, especially posteriorly, around the knee were then systematically injected with a periarticular cocktail consisting of 50cc 0.25% Marcaine, 30mg Ketorolac, 20cc of Exparal and 50cc of injectable saline. The knee was thoroughly irrigated with a pulse lavage and dried. Irrisept was also used to irrigate the tissues. Starting with the tibial component, the tibia was subluxed anteriorly and the lug holes of the component were lined up. The tibia was then impacted with an impactor and mallet until the tibial component was in contact with the tibia. The final polyethylene component was inserted. Then, the femoral component was inserted. The lug holes were aligned and the component was impacted into posi tion. The knee was irrigated with Irrisept chlorhexadine solution. This was allowed to sit in the knee for 3 minutes. After the cement had finally cured, approximately 15min, the clamp was removed from the patella and the knee was taken through range of motion. The patella was tracking with a no-thumbs technique. The capsule was then reapproximated with a No. 1 Vicryl at multiple locations. The capsule was finally closed with a No. 2 Stratafix, barbed suture. The second dosing of 1g TXA was started. Deep tissues were then reapproximated with 0 Vicryl and 2-0 Vicryl. The skin was closed with a running 3-0 Monocryl in a subcuticular fashion. This was reinforced with skin glue. A Mepilex silver dressing was applied along with a [id number] PRAMOD wrap. A CryoCuff was applied. Kelin was transferred to the hospital bed without difficulty an suffering no apparent complication. Kelin has a good prognosis. Physical therapy will start today and without restrictions, weight-bearing as tolerated. Aspirin 81mg BID will be used for DVT prophylaxis.
[2021-08-11] MEDS: fentaNYL 100 MCG/2 ML VIAL IVP ×2 (09:49→09:59)
[2021-08-11] MEDS: HYDROmorphone 2 MG/ML VIAL IVP (10:23)
[2021-08-11] MEDS: HYDROmorphone 2 MG TAB PO ×2 (10:56→11:32)
[2021-08-11] MEDS: Insulin Aspart 100 UNITS/ML UNIT 30 UNITS SC (11:04)
--- NOTE | 2021-08-11 13:18 | IN_ITS ---
Date of service: 08/11/21 Time of Service: 13:18 PT Notes Visit Reasons: Right Knee DJD Physical Therapy Day Surgery Initial Evaluation Date: 08/11/2020 Referring Doctor: Brown Jimenez MD PT Orders: PT CONSULT: Status post Ortho surgery. Status post right TKA. Precautions: WBAT on right LE with AD Patient Profile/Admitting Diagnosis: Martha is a 56-year-old female with post traumatic arthritis of the right knee and is status post right total knee arthroplasty on postoperative day 0. PMHX: Medical History Asthma Back pain Depression Diabetes type 2, controlled Diarrhea Ganglion cyst of wrist GERD (gastroesophageal reflux disease) Hiatal hernia Hx of ovarian cyst Hyperlipidemia Hypertension Hypothyroidism Migraine Morbid obesity with BMI of 50.0-59.9, adult Peripheral neuropathy Risk for falls Sleep apnea Urinary incontinence Surgical History ganglion cyst excision History of gastric bypass Social History/Home Situation: Lives alone in a private home with 2 steps to enter without rails. States that she will be at her mother's house for for the next 5 days where there is an elevator to the second floor of the apartment building that she can use. She will then go to her friend's house for 2 weeks to continue to recover where she has a ramp to enter and where she will be in the handicap suite. Independent with all aspects of ADLs prior to surgery. Equipment Owned/DME: None Subjective: Reported 9/10 pain with first step taken but was able to feel less pain at 5/10 with a different technique employed using the front -wheeled walker. Complained of being sleepy and lightheaded but was able to tolerate short distance ambulation of up to 30 feet from bedside to a little outside her door and then another 20 feet from outside her door to the bathroom using front wheeled walker, both utilizing step-to gait pattern. On 2 L of oxygen per minute throughout activity with saturation level of 94 to 96% via NC. Objective: General Observation: TEDS on R LE. Cryo/Cuff on right R knee. Obese. 2 L of oxygen supplementation via NC. Mental Status: Alert and oriented x4 Pain: 9/10 with the first step on the right knee, 5/10 with succeeding steps ROM: Right Lower Extremity: Hip flexion WFL. Hip abduction WFL. Knee flexion 20 degrees to 90 degrees. Knee extension -20 degrees. Ankle dorsiflexion WFL. Ankle plantarflexion WFL. Left Lower Extremity: Hip flexion WFL. Hip abduction WFL. Knee flexion WFL. Ankle dorsiflexion WFL. Ankle plantarflexion WFL. Strength: Right Lower Extremity: Hip flexors 4/5. Hip abductors 4/5. Knee flexors 3-/5. Knee extensors 3-/5. Ankle dorsiflexors 5/5. Ankle plantarflexors 5/5. Left Lower Extremity:Hip flexors 5/5. Hip abductors 5/5. Knee flexors 5/5. Knee extensors 5/5. Ankle dorsiflexors 5/5. Ankle plantarflexors 5/5. Sensation: Intact as to pain and light pressure in bilateral lower extremities Bed Mobility/Transfers: Supine to sit standby assist Sit to stand contact-guard assist Stand to sit standby assist Bed to chair standby assist Gait: Instructed patient with level surface ambulation using front wheeled walker with step-to gait pattern for about 40 feet using a front wheeled walker. Initially reportedly 9/10 with the first step but was able to bring down pain level to 5/10 pain with a better technique and walker management. Complained of lightheadedness which required a 1 seated rest. Nurse Adriane rob needed assiatnce for safety. Stayed above 90% on 2 L of oxygen per minute throughout activity. Balance: Static Sitting: Normal Dynamic Sitting: Good Static Standing: Fair Dynamic Standing: Fair Special Tests: Mobility Limitations Standardized Measure [facility] 6 clicks Basic Mobility Inpatient Short Form: Raw Score: 21 CMS Score: 29% deficit Informed Consent/Education: Patient instructed in purpose of PT consult. Packet containing TKA exercise protocol has been given to patient. Education and training on initial set of exercises that can be done at home have been completed with patient. Assessment: Decreased activity tolerance due to need for oxygen use. Pain report in right knee limits ambulation distance. Will only require about 20 feet of short distance ambulation at a time at her mom's house and at her friend's house. Confident about going home with use of front wheeled walker at this time. Patient presents with clinical signs and symptoms consistent with current/admitting diagnoses that have resulted to mobility limitations, gait instability, generalized weakness, and impairment of motor control as demonstrated by the following impairment level findings: 1. Decreased strength to right knee major muscle groups 2. Impaired standing balance 3. Limitation of joint range of motion in right knee Impairments are contributing to the following functional limitations: 1. Inability to safely ambulate without assistive device 2. Increase completion time for mobility ADL performance 3. Increased fall risk Patient is assessed as a 39994 moderate complexity based on the following: History: 56-year-old female with impairment level findings, functional [place] itations, and past medical history as indicated above Examination: Demonstrable impairment in strength, balance, and mobility level with underlying impairments and functional limitations as documented above with a [place] AM PAC score of 29% deficit Presentation: Evolving Decision Makin moderate complexity Goals: N/A. PT evaluation and 1-2 treatment sessions only for functional mobility t raining using recommended AD and for HEP instruction. Plan of Care/Treatment Plan: N/A. PT evaluation and 1-2 treatment session only for functional mobility training using recommended AD and for HEP instruction. DISCHARGE RECOMMENDATIONS: Home when medically cleared by orthopedic surgeon. Outpatient physical therapy services in order to maximize functional mobility outcomes and facilitate return to community ambulation/patient activities without an assistive device. TREATMENT CODE/TIME: 95953 x 20 minutes, 9753 0 x 28 minutes beginning at 13:18 PM. Thank you for the opportunity to participate in the care of this patient.
--- NOTE | 2021-08-11 14:35 | W.ANESPOSTOP ---
Postoperative Evaluation Date, Time and Location Date Performed: 08/11/21 Time Performed: 14:35 Patient Location: Day Surgery Unit Vital Signs Most Recent Imported Vital Signs: Most Recent Vital Signs Temp Pulse Resp BP Pulse Ox 36.3 C L 74 18 110/56 L 94 08/11/21 13:15 08/11/21 13:15 08/11/21 13:15 08/11/21 13:15 08/11/21 13:15 Pain Score Most Recent Pain Score: Most Recent Pain Score Pain Level 3 08/11/21 13:15 Assessment Mental Status: Awake (Alert & Oriented to Patient Baseline) Airway and Respiratory Function: Abnormal Respiratory exam (See explanation) (Decreased Oxygen Saturation, discussed with Dr. Jimenez) Cardiovascular Function: Hemodynamically Stable Hydration Status: Adequately Hydrated Nausea & Vomiting: No Nausea or Vomiting Pain: Pt. Denies Any Pain Peripheral Nerve Block: Regional nerve block not resolved at time of post operative discharge
== END 2021-08-11 16:10 | disposition home or self-care (01) ==
PROVIDERS: PCP Family Medicine; Visit Provider Student in an Organized Health Care Education/Training Program
PROC: (CPT 27447; principal; 2021-08-11 07:30)
DX: M17.31 Unilateral post-traumatic osteoarthritis, right knee (principal); Z68.42 Body mass index [BMI] 45.0-49.9, adult; E11.9 Type 2 diabetes mellitus without complications; K21.9 Gastro-esophageal reflux disease without esophagitis; E66.01 Morbid (severe) obesity due to excess calories
CPT/HCPCS: 27447; C1776; 97162; 97530; J0690; J1885; J2001; J2405; J3010

== ENCOUNTER 2021-08-30 10:59 | Outpatient (CLI) | payer MEDICARE, MEDICAID, SELFPAY ==
--- NOTE | 2021-08-30 10:00 | DI.RAD_ITS ---
Exam(s) XR KNEE RT 1V EXAM: XR KNEE RT 1V CLINICAL HISTORY: 1st post op L TKA. TECHNIQUE: 2D digital imaging was performed. COMPARISON: CR XR KNEE RT 1V from 03/03/2021 FINDINGS: There has been interval placement of a right knee prosthesis. Components appear to be in satisfactor y position alignment. There has been patellar resurfacing IMPRESSION: DATA REPOSITORY: RADIATION DOSE DELIVERED:
--- NOTE | 2021-08-30 10:00 | DI.RAD_ITS ---
Exam(s) XR STANDING ALIGNMENT EXAM: XR STANDING ALIGNMENT CLINICAL HISTORY: 1ST POST L TKA. TECHNIQUE: 2D digital imaging was performed. COMPARISON: CR XR STANDING ALIGNMENT from 03/03/2021 FINDINGS: There has been interval placement of a right knee prosthesis which appears to be in satisfactory posi tion. Significant narrowing of the medial compartment of the opposite-left knee is again noted. Hip s appear unremarkable although the left hip appears to be approximately 1.2 cm higher than the right hip, this pelvic tilt more prominent than on the prior study. Ankles appear unremarkable. IMPRESSION: DATA REPOSITORY: RADIATION DOSE DELIVERED:
== END 2021-08-30 11:00 | disposition home or self-care (01) ==
LOC: DIORS 11:00
PROVIDERS: PCP Family Medicine; Visit Provider Physician Assistant Surgical
DX: Z47.1 Aftercare following joint replacement surgery; Z96.651 Presence of right artificial knee joint
CPT/HCPCS: 73560; 77073

== ENCOUNTER 2021-09-02 08:37 | Inpatient (IN) | payer MEDICARE, MEDICAID, SELFPAY ==
[2021-09-02] VITALS (55 sets, daily range): BP systolic 97–156; BP diastolic 44–133; PULSE 66–106; RESP 13–29; TEMP 36.4–39.4; O2SAT 85–98
--- NOTE | 2021-09-02 09:00 | RT.EKG_ITS ---
APPROVED REPORT Exam: Resting ECG Reason for Exam: weakness Patient Location: E HR:84 bpm ECG Measurements Heart Rate 84 AXIS NM 168 P 77 QRSd 86 QRS 29 QT 381 T 9 QTc 452 Conclusion Sinus rhythm...normal P axis, V-rate 60- 99 Ventricular premature complex...V complex w/ short R-R interval
[2021-09-02 09:06] LABS: Bilirubin Small (Negative); Blood Moderate (Negative); Clarity Cloudy (Clear); Glucose 500 mg/dL (Negative); Ketones 40 mg/dL (Negative); Leukocyte Esterase Trace (Negative); Nitrite Negative (Negative); Urobilinogen 0.2 EU/dL (Up TO 0.2)
--- NOTE | 2021-09-02 09:40 | ED.GENADUL_ITS ---
Discharge Plan Disposition Patient Disposition: [facility] INPATIENT Condition: Serious Discharge Details Chief Complaint: Urinary Clinical Impression: Diabetes type 2, controlled, CAP (community acquired pneumonia), Transaminitis, Nausea & vomiting, History of total right knee replacement Admit Date/Time: 09/02/21 12:56 Admit Provider: Rober Mendoza Attending Provider: Rober Mendoza Primary Care Provider: Jonathan Smith ED Provider: Ana Benson Discharge Data Discharge Date/Time-TO BE ENTERED AT DEPARTURE: 09/02/21 15:05 Medical Decision Making Patient is alert, oriented, of decisional capacity, no evidence of diabetic ketoacidosis, mild lactic acidosis, right lower lobe infiltrate, low suspicion for aspiration Given fever, vomiting, and history of diabetes, I do not think dependent patient is acutely in today after discharge home at this time Think she benefit from 24-hour observation Her CT abdomen pelvis does not show acute abnormality, this is ordered as her urinalysis did not show evidence of infection, negative interesting that she has stranding around her kidneys bilaterally, it sounds like this is chronic however she does have some increased stranding, she was on appropriate therapy for pyelonephritis should her urine culture test positive She is agreeable to admission time She is not actively vomiting but has had some intermittent nausea I did initiate doxycycline and cephalexin which she tolerated well Case was discussed with Dr. Gaming who will admit to the hospital under patient She is remained hemodynamically stable encounter VBG does not show acute abnormality Medical Records Medical records reviewed: Yes I reviewed the patient's medical records. Lab Data Lab results reviewed: Yes I reviewed the patient's lab results. HPI General Mode of arrival: ambulatory . Date/Time Provider Initiated Documentation: 09/02/21 09:07 . Limitations to Documentation: no limitations . Information obtained by: patient . HPI Narrative: This 56-year-old female with history of insulin-dependent diabetes, recent right total knee replacement, venous insufficiency, insomnia presents with report of dysuria which started on Monday followed by fever on Monday, subjective. Patient states today she feels weak, she has been vomiting for the past 2 days. Subjective fever since that time. Has flank pain. Blood sugar was 300 this morning reportedly. Denies any shortness of breath or cough. Denies any known sick contacts. Fully vaccinated for COVID-19 reportedly. Denies any pain in the recently replaced knee, swelling, rash states she had symptoms of yeast infection, called her provider who prescribed a dose of Diflucan. Denies any chest pain or shortness of breath.. Related Data Home Medications Medication Instructions Recorded Confirmed levothyroxine [Synthroid] 200 mcg PO DAILY tab-cap 08/23/13 09/02/21 rosuvastatin [Crestor] 40 mg PO DAILY tab-cap 08/23/13 09/02/21 albuterol sulfate 90 mcg/actuation 2 puff INHALATION Q6H PRN 11/06/20 09/02/21 aerosol inhaler cholecalciferol (vitamin D3) 25 25 mcg PO DAILY 11/06/20 09/02/21 mcg (1,000 unit) capsule duloxetine 30 mg capsule,delayed 30 mg PO DAILY 11/06/20 09/02/21 release levalbuterol tartrate 45 2 inh INHALATION Q6H 11/06/20 09/02/21 mcg/actuation aerosol inhaler mecobalamin (vitamin B12) 1,000 1,000 mcg PO DAILY 11/06/20 09/02/21 mcg chewable tablet metformin 500 mg tablet 500 mg PO DAILY 11/06/20 09/02/21 calcium citrate 1,000 mg tablet 1,000 mg PO DAILY 12/31/20 09/02/21 atenolol 25 mg tablet 50 mg PO BID tab-cap 03/03/21 09/02/21 gabapentin 100 mg capsule 100 mg PO BID cap 03/03/21 09/02/21 insulin aspart U-100 100 unit/mL 30 unit SUBCUT QID ml 03/03/21 09/02/21 (3 mL) subcutaneous pen dulaglutide 0.75 mg/0.5 mL 0.75 mg SUBCUT QWEEK 03/04/21 09/02/21 subcutaneous pen injector insulin detemir U-100 100 unit/mL 20 unit SUBCUT QHS 03/04/21 09/02/21 (3 mL) subcutaneous pen acetaminophen 1,000 mg PO Q8H PRN #90 tab 08/11/21 09/02/21 aspirin 81 mg PO BID #60 tab 08/11/21 09/02/21 docusate sodium [Colace] 100 mg PO BID PRN #10 cap 08/11/21 09/02/21 ibuprofen 600 mg PO TID PRN #90 tab 08/11/21 09/02/21 promethazine 12.5 mg PO Q6H PRN #8 tab 08/11/21 09/02/21 Previous Rx's Medication Instructions Recorded acetaminophen 1,000 mg PO Q8H PRN #90 tab 08/11/21 aspirin 81 mg PO BID #60 tab 08/11/21 docusate sodium [Colace] 100 mg PO BID PRN #10 cap 08/11/21 ibuprofen 600 mg PO TID PRN #90 tab 08/11/21 promethazine 12.5 mg PO Q6H PRN #8 tab 08/11/21 Allergies Allergy/AdvReac Type Severity Reaction Status Date / Time latex Allergy Severe Skin Rash Unverified 09/02/21 09:12 Sulfa (Sulfonamide Allergy Severe vomiting/ra Unverified 09/02/21 09:12 Antibiotics) sh/migraine amlodipine AdvReac Severe suicadal Unverified 09/02/21 09:12 thoughts fluoxetine HCl [From Prozac] AdvReac Severe anxiety/peggy Unverified 09/02/21 09:12 cidal pregabalin [From Lyrica] AdvReac Severe flatulence/ Unverified 09/02/21 09:12 suicidal sumatriptan [From Imitrex] AdvReac Severe suicidal Unverified 09/02/21 09:12 tramadol AdvReac Severe anxiety,suicidal Unverified 09/02/21 09:12 thoughts General Stated Complaint: Urinary RICHAR: 3 Review of Systems All systems reviewed & are unremarkable except as noted in HPI and below PFSH Active Problem List History of total right knee replacement (Acute 08/11/21) History of total left knee replacement (Acute) Internal derangement of left knee (Acute 05/26/16) Mucous cyst of finger (Acute 12/28/15) Surgical menopause (Acute 08/23/13) Neoplasm of unspecified behavior of bone, soft tissue, and skin (Chronic) Osteoarthritis of both knees (Acute) Seborrheic keratosis (Acute) Serrated adenoma of colon (Acute) Actinic keratosis (Acute) Fibromyalgia (Acute) BMI 45.0-49.9, adult (Acute) Venous insufficiency (Acute) Insomnia (Acute) Vitamin D deficiency (Acute) Post-traumatic osteoarthritis of right knee (Acute) Medical History Asthma Back pain Depression Diabetes type 2, controlled Diarrhea Ganglion cyst of wrist GERD (gastroesophageal reflux disease) pt. denies Hiatal hernia Hx of ovarian cyst Hx of traumatic brain injury Hyperlipidemia Hypertension Hypothyroidism Migraine Morbid obesity with BMI of 50.0-59.9, adult Peripheral neuropathy Risk for falls Sleep apnea Urinary incontinence Surgical History ganglion cyst excision History of colonoscopy History of gastric bypass Hx of bilateral oophorectomy Hx of cholecystectomy Hx of knee surgery R knee fracture, remove hardware Social History Smoking/Tobacco Use Status: Never Smoking risk assessment performed?: Yes Alcohol Intake: current Alcohol Intake frequency: holidays/special occasions only Drug use: Never Substance use type: does not use Details: alcohol: t-5 Current gender identity: female Do you feel safe at home: Yes Do you feel safe in your relationship?: No Exam Const General: cooperative, comfortable and no acute distress HENMT Other: Moist mucous membrane Eyes Sclera: sclerae normal Other: Pupils equal round reactive to light and accommodation Neck Other: No meningismus Resp Effort & Inspection: normal respiratory effort Auscultation: clear to auscultation bilaterally Cardio Rate: regular rate Rhythm: regular rhythm GI Other: No abdominal tenderness, mild flank tenderness bilaterally Skin General skin exam: no rashes or lesions noted Neuro General: patient alert and patient oriented x3 Extrem Other: Right knee with well-appearing and healing surgical site to right knee, no evidence of secondary infection, no swelling, nontender Specifically no calf tenderness, distal pulses intact Psych Appearance: well kempt Course Vital Signs Vital signs: Vital Signs Temperature 39.4 C H 09/02/21 09:05 Pulse 89 09/02/21 09:05 Respiratory Rate 18 09/02/21 09:05 Blood Pressure 131/54 L 09/02/21 09:05 Pulse Oximetry 95 09/02/21 09:05 Temperature 39.4 C H 09/02/21 09:05 Temperature Source Oral 09/02/21 09:05 Pulse 89 09/02/21 09:05 Respiratory Rate 18 09/02/21 09:05 Respiratory Effort Non-Labored 09/02/21 09:05 Blood Pressure 131/54 L 09/02/21 09:05 Blood Pressure Position Supine 09/02/21 09:05 Pulse Oximetry 95 09/02/21 09:05 Oxygen Delivery Method Room Air 09/02/21 09:05 Oxygen Flow Rate 0 09/02/21 09:05 Pain Level 6 09/02/21 09:05 Lab/Test Results Lab/Test Results: Laboratory Tests Range/Units 09/02/21 09:00 Urine Color (Yellow) Yellow Urine Clarity (Clear) Cloudy Urine pH (5-8) 6.0 Ur Specific [place] (1.005-1.025) 1.020 Urine Protein (Negative) mg/dL 100 H Urine Ketones (Negative) mg/dL 40 H Urine Blood (Negative) Moderate H Urine Nitrite (Negative) Negative Urine Bilirubin (Negative) Small H Urine Urobilinogen (Up TO 0.2) EU/dL 0.2 Ur Leukocyte Esterase (Negative) Trace H Urine Glucose (Negative) mg/dL 500 H Critical Care Time Critical Care Time Critical Care Time: Yes Total Critical Care Time: 40 Attestation: IV antibiotics, IV fluid resuscitation, admission to hospital, diagnostic labs, diagnostic imaging, hospitalist consultation
[2021-09-02] MEDS: Ondansetron 4 MG/2 ML VIAL IVP (09:44)
[2021-09-02 09:49] LABS: BE (Venous) 3 mmol/L (-2-3); HCO3 (Venous) 27 mmol/L (23-28); O2 Sat (Venous) 83 %; TCO2 (Venous) 24 mmol/L (24-29); pCO2 (Venous) 40 mmHg (41-51); pH (Venous) 7.44 (7.31-7.41); pO2 (Venous) 44 mmHg
[2021-09-02 09:51] LABS: Abs Immature Grans 0.03 10^3/uL (0.0-0.06); Absolute Basophil Count 0.04 10^3/uL (0.0-0.2); Absolute Eosinophil Count 0.29 10^3/uL (0.0-0.7); Absolute Monocyte Count 0.51 10^3/uL (0.1-0.8); Absolute Neutrophil Count 7.11 10^3/uL (1.2-6.7); Basophils % 0.5; Eosinophils % 3.5; HGB 12.8 g/dL (11.2-15.7); Immature Grans % 0.4; Lymphocytes % 4.8; MCH 28.4 pg (27.0-33.0); MCHC 32.8 % (32.0-36.0); MCV 86.5 fL (80-95); MPV 10.9 fL (8.0-11.0); Monocytes % 6.1; Neutrophils % 84.7; Nucleated RBC 0 %; Platelet Count 173 10^3/uL (130-400); RBC 4.51 10^6/uL (3.93-5.22); RDW 13.6 % (11.7-14.6); WBC 8.38 10^3/uL (4.4-10.8)
[2021-09-02 09:54] LABS: Lactate 1.7 mmol/L (0.6-1.4)
[2021-09-02] MEDS: Normal Saline 1,000 ML 1000 ML IV ×2 (10:00→12:54)
[2021-09-02 10:10] LABS: Albumin 3.3 g/dL (3.4-5.0); Alkaline Phosphatase 264 U/L (46-116); BUN 14 mg/dL (7-18); Bilirubin, Total 1.5 mg/dL (0.2-1.0); CREATININE 0.9 mg/dL (0.55-1.02); Calcium 10.2 mg/dL (8.5-10.1); Glucose 282 mg/dL (74-106); Potassium 3.8 mmol/L (3.5-5.1); Sodium 139 mmol/L (136-145); Total Protein 7.3 g/dL (6.4-8.2)
[2021-09-02 10:11] LABS: ALT 61 U/L (14-59); AST 56 U/L (15-37); Anion Gap 9.4 mmol/L (3-11); C-Reactive Protein 8.88 mg/dL (0.0-0.3); CO2 27.6 mmol/L (21.0-32.0); Chloride 102 mmol/L (98-107); Lipase 88 U/L (73-393)
[2021-09-02 10:12] LABS: Troponin I < 0.05 ng/mL (<0.06)
[2021-09-02 10:19] LABS: ESR 31 mm/hr (0-30)
[2021-09-02 10:19] LABS: Source Nasal/Nares
[2021-09-02] MEDS: ACETAMINOPHEN 1,000 MG/100 ML BTL 400 MG IVPB (10:20)
[2021-09-02 10:23] LABS: Bacteria Rare HPF (Negative); C & S Indicated? No/Sq. Contamination; Casts 0-2 Hyaline LPF (Negative); Crystals Negative HPF (Negative); Epithelial Cells Moderate HPF (Negative); Mucus Negative (Negative)
[2021-09-02] MEDS: Normal Saline Flush 10 ML SYR IVP (10:29)
[2021-09-02] MEDS: cefTRIAXone 2 GM/50 ML BAG IVPB (10:49)
--- NOTE | 2021-09-02 11:00 | DI.RAD_ITS ---
Exam(s) XR CHEST 2V PA LATERAL EXAM: XR CHEST 2V PA LATERAL CLINICAL HISTORY: hypoxia, shortness. TECHNIQUE: 2D digital imaging was performed. COMPARISON: Prior chest x-ray 04/11/2019 FINDINGS: Heart size is normal. The mediastinum is not widened. There is some infiltrate in the right lung base right middle lobe. Left lung is clear. No pleural e ffusions. IMPRESSION: Right lung base infiltrate.No pleural effusions evident. DATA REPOSITORY: RADIATION DOSE DELIVERED:
[2021-09-02 11:09] LABS: COVID-19 PCR Negative (Negative)
[2021-09-02] MEDS: Normal Saline - Diluent 50 ML VIAL IV (11:44)
[2021-09-02] MEDS: Omnipaque 350 MG/ML 100 ML BTL IJ (11:45)
--- NOTE | 2021-09-02 11:50 | DI.CT_ITS ---
Exam(s) CT ABDOMEN PELVIS W EXAM: CT ABDOMEN PELVIS W CLINICAL HISTORY: bilateral flank pain, back pain, fever. TECHNIQUE: Imaging Protocol: Axial computed tomography images with coronal and sagittal reformatted images were created and reviewed CONTRAST MATERIAL: Intravenous: Omnipaque 100cc Oral: None COMPARISON: CT ABD PELVIS WITH CONTRAST from 06/19/2016 CR XR CHEST 2V PA LATERAL from 09/02/2021 CR XR CHEST 2V PA LATERAL from 09/02/2021 FINDINGS: VISUALIZED LUNG BASES: On the uppermost image there is a noncalcified 6 millimeter nodule in the left lower lobe. Also mild increased markings in the partially visualized lingula and right middle lobe. There are no pleural effusions.. ABDOMEN: There has been interval bariatric surgery, specifically gastric sleeve procedure. There is no obvious abnormality in the stomach and no evidence of thrombosis of the superior mesenteric vein (which is a potential significant complication of gastric sleeve surgery). There is no ascites. No bowel obstruction. No free air. No abscess. There is a diffuse haziness in th e mesentery but this is unchanged from 2016. LIVER: There are no focal hepatic lesions evident . GALLBLADDER/BILIARY: The gallbladder is again noted be surgically absent. CBD is not dilated. PANCREAS: No evidence of pancreatic mass nor dilatation of the pancreatic duct. SPLEEN: Spleen is not enlarged. No obvious intrasplenic lesions. Benign-appearing splenule medial to the spleen is unchanged from 2016. Splenic and portal veins are patent. As described above, the supe rior mesenteric vein is patent. ADRENALS: There are no significant adrenal masses. KIDNEYS:Perinephric stranding around both kidneys is noted, slightly more so than 2016. No calculi. N o hydronephrosis nor hydroureter nor obvious abnormality in the urinary bladder. No new solid renal m asses. No new cysts.. ABDOMINAL AORTA: Abdominal aorta is not enlarged. LYMPH NODES:There is no retroperitoneal nor paraaortic adenopathy. ABDOMINAL WALL: Evidence of previous surgery but no new abdominal wall findings. GI: There is no evidence of bowel obstruction, free air, nor abscess. PELVIS: GI: No evidence of appendicitis.No evidence of sigmoid diverticulitis.No colitis pattern evident. LYMPH NODES: There is no intrapelvic nor inguinal adenopathy. REPRODUCTIVE: Uterus and adnexal regions unremarkable. No free fluid URINARY BLADDER: No calculi nor obvious masses evident OSSEOUS: No significant osseous lesions. IMPRESSION: 1. Compared to the prior CT scan of 2016 there has been interval gastric sleeve bariatric surgery. Th ere is no bowel obstruction. No free air. No abnormal fluid collection. There is also no thrombosis o f the superior mesenteric vein, this being a dreaded potential complication of gastric sleeve surgery . 2. Gallbladder is again noted be surgically absent. There is no dilatation of the biliary tree, both intra and extrahepatic. 3. Mild stranding around both kidneys is perhaps minimally increased from 2016. No other significant renal findings. No hydronephrosis. No calculi. 4. Uppermost images of this study reveal an unchanged 6 millimeter nodule in the left lower lobe, un changed from 2016. No pleural effusions. However, please note that chest x-ray performed today reveal s some infiltrate in the right lung base-probable right middle lobe. There are no pleural effusions. RADIATION DOSE DELIVERED: 1,685.16mGy.cm Total DLP DATA REPOSITORY: All CT scans at this facility are submitted to the National Radiology Data Registry (NRDR) Dose Index Registry (DIR) with the [employer] (ACR). RADIATION OPTIMIZATION: All CT scans at this facility use at least one of these dose optimization te chniques: automated exposure control; mA and/or kV adjustment per patient size (includes targeted exa ms where dose is matched to clinical indication); or iterative reconstruction.
[2021-09-02] MEDS: DOXYCYCLINE 100 MG in Normal Saline 100 ML IVPB ×2 (12:54→22:48)
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
[2021-09-02 13:43] LABS: Troponin I < 0.05 ng/mL (<0.06)
[2021-09-02] MEDS: Gabapentin 100 MG CAP PO ×2 (13:55→19:38)
--- NOTE | 2021-09-02 16:21 | HPE_ITS ---
Date of service: 09/02/21 Time of Service: 16:21 Assessment and Plan Assessment and plan (1) CAP (community acquired pneumonia): Start date: 09/02/21 Start time: 17:15 Status: Acute Assessment and plan: Shown to have Rt lung base right middle lobe infiltrate. Initiated on ceftriaxone and doxy. Albuterol and updrafts as needed oxygen for hypoxia. sputum cx, and Blood cx pending. Qualifiers: Laterality: right Lung location: middle lobe of lung Qualified Code(s): J18.9 - Pneumonia, unspecified organism (2) Nausea & vomiting: Start date: 09/02/21 Start time: 17:28 Status: Acute Assessment and plan: Compazine and zofran IV monitor Clear diet at this time advance as tolerated Qualifiers: Vomiting type: unspecified Vomiting Intractability: non-intractable Qualified Code(s): R11.2 - Nausea with vomiting, unspecified (3) Transaminitis: Start date: 09/02/21 Start time: 17:21 Status: Acute Assessment and plan: Elevated liver panel. Will hold crestor and hepatotoxic medications repeat labs in the morning (4) History of total right knee replacement: Start date: 09/02/21 Start time: 17:20 Status: Acute Assessment and plan: S/p knee [address] 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 (6) Hypertension: Start date: 09/02/21 Start time: 17:25 Status: Chronic Assessment and plan: continue atenolol Qualifiers: Hypertension type: unspecified Qualified Code(s): I10 - Essential (primary) hypertension (7) Hypothyroidism: Start date: 09/02/21 Start time: 17:29 Status: Chronic Assessment and plan: ablation in the past on levothyroxine, per patient can not take synthroid Qualifiers: Hypothyroidism type: other Qualified Code(s): E03.8 - Other specified hypothyroidism (8) Sleep apnea: Start date: 09/02/21 Start time: 17:30 Status: Chronic Assessment and plan: Unsure if she requires bipap or cpap, will have res piratory investigate, for now oxygen if needed. Qualifiers: Sleep apnea type: unspecified type Qualified Code(s): G47.30 - Sleep apnea, unspecified (9) DVT prophylaxis: Start date: 09/02/21 Start time: 17:33 Status: Acute Assessment and plan: heparin subcu (10) Discharge planning issues: Start date: 09/02/21 Start time: 17:34 Status: Acute Assessment and plan: Home when medically ready discusssed with Dr. Mendoza History of Present Illness History of Present Illness Chief Complaint: Pneumonia, N/V Narrative: 56 y.o female with PMH of HTN, IDDM, R Knee Replacement 3 weeks ago, HTN, ablated thyroid, presented to the ED with n/v fever, back pain and hypoxia. Temp in ED was 39.4 on arrival. No leukocytosis, not requiring oxygen at this time. CRP is elevated at 8.88, ESR 31, lactate 1.7, Liver enzymes elevated AST 56, ALT 61, Alk Phos 264, calcium elevated at 10.2 CT revealed: IMPRESSION: 1. Compared to the prior CT scan of 2016 there has been interval gastric sleeve bariatric surgery. There is no bowel obstruction. No free air. No abnormal fluid collection. There is also no thrombosis of the superior mesenteric vein, this being a dreaded potential complication of gastric sleeve surgery. 2. Gallbladder is again noted be surgically absent. There is no dilatation of the biliary tree, both intra and extrahepatic. 3. Mild stranding around both kidneys is perhaps minimally increased from 2016. No other significant renal findings. No hydronephrosis. No calculi. 4. Uppermost images of this study reveal an unchanged 6 millimeter nodule in the left lower lobe, unchanged from 2016. No pleural effusions. However, please note that chest x-ray performed today reveals some infiltrate in the right lung base-probable right middle lobe. There are no pleural effusions. She was asked to be admitted to the hospitalist group for further management. She will be placed on doxy and ceftriaxone for CAP asp pneumonia. Antiemitics. Hold crestor in setting of tranamansnitis, hold calcitrate, place on IVF while nauseated. Will place on SSI. BC pending. Urine cx pending. Denies CP. Monitor labs, trend CRP and procal. Review of Systems All systems reviewed & are unremarkable except as noted in HPI and below PFSH Active Problem List History of total right knee replacement (Acute 08/11/21) History of total left knee replacement (Acute) Internal derangement of left knee (Acute 05/26/16) Mucous cyst of finger (Acute 12/28/15) Surgical menopause (Acute 08/23/13) Neoplasm of unspecified behavior of bone, soft tissue, and skin (Chronic) Osteoarthritis of both knees (Acute) Seborrheic keratosis (Acute) Serrated adenoma of colon (Acute) Actinic keratosis (Acute) Fibromyalgia (Acute) BMI 45.0-49.9, adult (Acute) Venous insufficiency (Acute) Insomnia (Acute) Vitamin D deficiency (Acute) Post-traumatic osteoarthritis of right knee (Acute) Medical History Asthma Back pain Depression Diabetes type 2, controlled Diarrhea Ganglion cyst of wrist GERD (gastroesophageal reflux disease) pt. denies Hiatal hernia Hx of ovarian cyst Hx of traumatic brain injury Hyperlipidemia Hypertension Hypothyroidism Migraine Morbid obesity with BMI of 50.0-59.9, adult Peripheral neuropathy Risk for falls Sleep apnea Urinary incontinence Surgical History ganglion cyst excision History of colonoscopy History of gastric bypass Hx of bilateral oophorectomy Hx of cholecystectomy Hx of knee surgery R knee fracture, remove hardware Social History Smoking/Tobacco Use Status: Never Smoking risk assessment performed?: Yes Alcohol Intake: current Alcohol Intake frequency: holidays/special occasions only Drug use: Never Substance use type: does not use Details: alcohol: t-5 Current gender identity: female Do you feel safe at home: Yes Do you feel safe in your relationship?: No Meds Allergies and Home Medications Allergies Allergy/AdvReac Type Severity Reaction Status Date / Time latex Allergy Severe Skin Rash Unverified 09/02/21 09:12 Sulfa (Sulfonamide Allergy Severe vomiting/ra Unverified 09/02/21 09:12 Antibiotics) sh/migraine amlodipine AdvReac Severe suicadal Unverified 09/02/21 09:12 thoughts fluoxetine HCl [From Prozac] AdvReac Severe anxiety/peggy Unverified 09/02/21 09:12 cidal pregabalin [From Lyrica] AdvReac Severe flatulence/ Unverified 09/02/21 09:12 suicidal sumatriptan [From Imitrex] AdvReac Severe suicidal Unverified 09/02/21 09:12 tramadol AdvReac Severe anxiety,suicidal Unverified 09/02/21 09:12 thoughts Home Medications Medication Instructions Recorded Confirmed Type levothyroxine [Synthroid] 200 mcg PO DAILY tab-cap 08/23/13 09/02/21 History rosuvastatin [Crestor] 40 mg PO DAILY tab-cap 08/23/13 09/02/21 History albuterol sulfate 90 mcg/actuation 2 puff INHALATION Q6H PRN 11/06/20 09/02/21 History aerosol inhaler cholecalciferol (vitamin D3) 25 25 mcg PO DAILY 11/06/20 09/02/21 History mcg (1,000 unit) capsule duloxetine 30 mg capsule,delayed 30 mg PO DAILY 11/06/20 09/02/21 History release levalbuterol tartrate 45 2 inh INHALATION Q6H 11/06/20 09/02/21 History mcg/actuation aerosol inhaler mecobalamin (vitamin B12) 1,000 1,000 mcg PO DAILY 11/06/20 09/02/21 History mcg chewable tablet metformin 500 mg tablet 500 mg PO DAILY 11/06/20 09/02/21 History calcium citrate 1,000 mg tablet 1,000 mg PO DAILY 12/31/20 09/02/21 History atenolol 25 mg tablet 50 mg PO BID tab-cap 03/03/21 09/02/21 History gabapentin 100 mg capsule 100 mg PO BID cap 03/03/21 09/02/21 History insulin aspart U-100 100 unit/mL 30 unit SUBCUT QID ml 03/03/21 09/02/21 History (3 mL) subcutaneous pen dulaglutide 0.75 mg/0.5 mL 0.75 mg SUBCUT QWEEK 03/04/21 09/02/21 History subcutaneous pen injector insulin detemir U-100 100 unit/mL 20 unit SUBCUT QHS 03/04/21 09/02/21 History (3 mL) subcutaneous pen acetaminophen 1,000 mg PO Q8H PRN #90 tab 08/11/21 09/02/21 Rx aspirin 81 mg PO BID #60 tab 08/11/21 09/02/21 Rx docusate sodium [Colace] 100 mg PO BID PRN #10 cap 08/11/21 09/02/21 Rx ibuprofen 600 mg PO TID PRN #90 tab 08/11/21 09/02/21 Rx promethazine 12.5 mg PO Q6H PRN #8 tab 08/11/21 09/02/21 Rx Exam Const General: cooperative, comfortable, in distress (nauseated, sick looking) mild, ill appearing acutely and No well hydrated Nutritional Appearance: obese Orientation: alert, awake and oriented x3 Eyes Eyelids: eyelids normal Pupils: PERRL EOM: EOM intact bilaterally Neck Neck: normal visual inspection and no JVD Lymphatic: no lymphadenopathy noted Resp Effort & Inspection: normal respiratory effort Auscultation: diminished lung sounds Cardio Jugular venous pressure: no JVD Rhythm: regular rhythm Heart Sounds: S1 normal GI Auscultation: normal bowel sounds General: No CVA tenderness and deferred Skin General skin exam: no rashes or lesions noted Wounds: wound noted and wounds noted (well approximated surgical site, no e rythema or edema. 3 weeks post surgery) Neuro General: patient alert, patient awake and patient oriented x3 Cognition: normal cognition Speech: speech normal Gait: normal gait Extrem General: normal to inspection, full ROM and no clubbing, cyanosis or edema Results Labs Result diagrams: 09/02/21 09:35 09/02/21 09:35 Labs: Laboratory Results - last 24 hr 09/02/21 09/02/21 09/02/21 09:00 09:35 09:35 WBC RBC Hgb Hct MCV MCH MCHC RDW Plt Count MPV Immature Gran % Neutrophils % Lymphocytes % Monocytes % Eosinophils % Basophils % Nucleated RBC % Absolute Neutrophils Absolute Lymphocytes Absolute Monocytes Absolute Eosinophils Absolute Basophils ESR VBG pH VBG pCO2 VBG pO2 VBG HCO3 VBG Total CO2 VBG O2 Saturation VBG Base Excess VBG Lactate 1.7 H Sodium 139 Potassium 3.8 Chloride 102 Carbon Dioxide 27.6 Anion Gap 9.4 BUN 14 Creatinine 0.9 Estimated GFR/1.73 m2 >= 60.00 Glucose 282 H Calcium 10.2 H Magnesium Total Bilirubin 1.5 H AST 56 H ALT 61 H Alkaline Phosphatase 264 H Troponin I C-Reactive Protein Total Protein 7.3 Albumin 3.3 L Lipase 88 Urine Color Yellow Urine Clarity Cloudy Urine pH 6.0 Ur Specific Holden 1.020 Urine Protein 100 H Urine Ketones 40 H Urine Blood Moderate H Urine Nitrite Negative Urine Bilirubin Small H Urine Urobilinogen 0.2 Ur Leukocyte Esterase Trace H Urine RBC 10-20 H Urine WBC 5-10 Ur Epithelial Cells Moderate Urine Crystals Negative Urine Bacteria Rare Urine Casts 0-2 Hyaline Urine Mucus Negative Ur Culture Indicated? No/Sq. Contamination Urine Glucose 500 H COVID-19 Source SARS-CoV-2 (PCR) 09/02/21 09/02/21 09/02/21 09:35 09:35 09:35 WBC 8.38 RBC 4.51 Hgb 12.8 Hct 39.0 MCV 86.5 MCH 28.4 MCHC 32.8 RDW 13.6 Plt Count 173 D MPV 10.9 Immature Gran % 0.4 Neutrophils % 84.7 Lymphocytes % 4.8 Monocytes % 6.1 Eosinophils % 3.5 Basophils % 0.5 Nucleated RBC % 0 Absolute Neutrophils 7.11 H Absolute Lymphocytes 0.40 L Absolute Monocytes 0.51 Absolute Eosinophils 0.29 Absolute Basophils 0.04 ESR VBG pH 7.44 H VBG pCO2 40 L VBG pO2 44 VBG HCO3 27 VBG Total CO2 24 VBG O2 Saturation 83 VBG Base Excess 3 VBG Lactate Sodium Potassium Chloride Carbon Dioxide Anion Gap BUN Creatinine Estimated GFR/1.73 m2 Glucose Calcium Magnesium 2.0 Total Bilirubin AST ALT Alkaline Phosphatase Troponin I < 0.05 C-Reactive Protein 8.88 H Total Protein Albumin Lipase Urine Color Urine Clarity Urine pH Ur Specific Holden Urine Protein Urine Ketones Urine Blood Urine Nitrite Urine Bilirubin Urine Urobilinogen Ur Leukocyte Esterase Urine RBC Urine WBC Ur Epithelial Cells Urine Crystals Urine Bacteria Urine Casts Urine Mucus Ur Culture Indicated? Urine Glucose COVID-19 Source SARS-CoV-2 (PCR) 09/02/21 09/02/21 09/02/21 09:35 09:52 13:18 WBC RBC Hgb Hct MCV MCH MCHC RDW Plt Count MPV Immature Gran % Neutrophils % Lymphocytes % Monocytes % Eosinophils % Basophils % Nucleated RBC % Absolute Neutrophils Absolute Lymphocytes Absolute Monocytes Absolute Eosinophils Absolute Basophils ESR 31 H VBG pH VBG pCO2 VBG pO2 VBG HCO3 VBG Total CO2 VBG O2 Saturation VBG Base Excess VBG Lactate Sodium Potassium Chloride Carbon Dioxide Anion Gap BUN Creatinine Estimated GFR/1.73 m2 Glucose Calcium Magnesium Total Bilirubin AST ALT Alkaline Phosphatase Troponin I < 0.05 C-Reactive Protein Total Protein Albumin Lipase Urine Color Urine Clarity Urine pH Ur Specific Holden Urine Protein Urine Ketones Urine Blood Urine Nitrite Urine Bilirubin Urine Urobilinogen Ur Leukocyte Esterase Urine RBC Urine WBC Ur Epithelial Cells Urine Crystals Urine Bacteria Urine Casts Urine Mucus Ur Culture Indicated? Urine Glucose COVID-19 Source Nasal/Nares SARS-CoV-2 (PCR) Negative Last Vital Signs Temp 37.7 C H 09/02/21 12:31 Pulse 80 09/02/21 16:00 Resp 18 09/02/21 15:18 BP 127/64 09/02/21 15:18 Pulse Ox 98 09/02/21 15:18
[2021-09-02] MEDS: Prochlorperazine 10 MG/2 ML VIAL IVP (16:48)
[2021-09-02] MEDS: Ibuprofen 600 MG TAB PO (17:13)
[2021-09-02] MEDS: Enoxaparin 40 MG/0.4 ML SYR SC (17:13)
[2021-09-02] MEDS: Acetaminophen 500 MG TAB 1000 MG PO (17:13)
[2021-09-02] MEDS: Insulin Aspart 300 UNITS/3 ML PEN SC (17:30)
[2021-09-02] MEDS: Lactated Ringers 1,000 ML 100 ML IV (17:59)
[2021-09-02] MEDS: Atenolol 25 MG TAB 50 MG PO (19:00)
[2021-09-02] MEDS: Aspirin E.C. 81 MG TABEC PO (19:38)
[2021-09-03] MEDS: Lactated Ringers 1,000 ML 100 ML IV (04:39)
[2021-09-03] MEDS: Ibuprofen 600 MG TAB PO ×3 (04:47→20:22)
[2021-09-03] MEDS: Acetaminophen 325 MG TAB 650 MG PO ×3 (04:47→20:22)
[2021-09-03] MEDS: Levothyroxine 100 MCG TAB 200 MCG PO (05:44)
[2021-09-03] MEDS: Docusate Sodium 100 MG CAP PO (05:59)
[2021-09-03 07:15] LABS: Abs Immature Grans 0.02 10^3/uL (0.0-0.06); Absolute Basophil Count 0.02 10^3/uL (0.0-0.2); Absolute Eosinophil Count 0.04 10^3/uL (0.0-0.7); Absolute Monocyte Count 0.69 10^3/uL (0.1-0.8); Absolute Neutrophil Count 4.73 10^3/uL (1.2-6.7); Basophils % 0.3; Eosinophils % 0.6; HGB 10.3 g/dL (11.2-15.7); Immature Grans % 0.3; Lymphocytes % 15.4; MCH 28.2 pg (27.0-33.0); MCHC 32.2 % (32.0-36.0); MCV 87.7 fL (80-95); MPV 11.2 fL (8.0-11.0); Monocytes % 10.6; Neutrophils % 72.8; Nucleated RBC 0 %; Platelet Count 136 10^3/uL (130-400); RBC 3.65 10^6/uL (3.93-5.22); RDW-SD 45.1 fL
[2021-09-03 07:30] VITALS: BP 116/68; PULSE 64; RESP 16; TEMP 36.9; O2SAT 93
[2021-09-03 07:41] LABS: Anion Gap 7.3 mmol/L (3-11); BUN 14 mg/dL (7-18); CO2 27.7 mmol/L (21.0-32.0); CREATININE 0.7 mg/dL (0.55-1.02); Calcium 9.6 mg/dL (8.5-10.1); Chloride 105 mmol/L (98-107); Glucose 206 mg/dL (74-106); Magnesium 1.9 mg/dL (1.8-2.4); Potassium 3.2 mmol/L (3.5-5.1); Sodium 140 mmol/L (136-145)
[2021-09-03 07:44] LABS: ALT 43 U/L (14-59); AST 34 U/L (15-37); Albumin 2.7 g/dL (3.4-5.0); Alkaline Phosphatase 194 U/L (46-116); Bilirubin, Direct 0.3 mg/dL (0.0-0.2); Bilirubin, Total 0.9 mg/dL (0.2-1.0); Total Protein 5.5 g/dL (6.4-8.2)
[2021-09-03] MEDS: Atenolol 25 MG TAB 50 MG PO ×2 (07:58→20:09)
[2021-09-03] MEDS: Aspirin E.C. 81 MG TABEC PO ×2 (07:58→20:08)
[2021-09-03] MEDS: DULoxetine 30 MG CAP PO (07:58)
[2021-09-03] MEDS: Polyethylene Glycol 3350 17 GM PACKET PO (07:59)
[2021-09-03] MEDS: Insulin Aspart 300 UNITS/3 ML PEN SC ×3 (07:59→17:13)
[2021-09-03] MEDS: Cholecalciferol (Vitamin D3) 1,000 UNIT TAB 1000 UNITS PO (07:59)
[2021-09-03] MEDS: Gabapentin 100 MG CAP PO ×2 (07:59→20:09)
[2021-09-03] MEDS: Potassium Chloride 20 MEQ TABCR 40 MEQ PO ×2 (09:21→13:25)
[2021-09-03] MEDS: cefTRIAXone 2 GM/50 ML BAG IVPB (09:21)
[2021-09-03] MEDS: DOXYCYCLINE 100 MG in Normal Saline 100 ML IVPB (09:59)
--- NOTE | 2021-09-03 10:45 | DI.CT_ITS ---
Exam(s) CT LOWER EXTREMITY RT W EXAM: CT LOWER EXTREMITY RT W CLINICAL HISTORY: r/o abscess from p/o surgery. TECHNIQUE: Imaging Protocol: Axial computed tomography images with coronal and sagittal reformatted images were created and reviewed. CONTRAST MATERIAL: Intravenous: Omnipaque 350 Contrast volume:structured data in ml Contrast route:IV - COMPARISON: CT LEFT LOWER EXTREMITY W CONTRAS from 01/11/2016 CR XR STANDING ALIGNMENT from 08/30/2021 CR XR KNEE RT 1V from 08/30/2021 CR XR KNEE RT 1V from 08/30/2021 CR XR STANDING ALIGNMENT from 08/30/2021 FINDINGS: Bones: Total knee prosthesis creates artifact. There is no evidence of fracture or dislocation. ali gnment is satisfactory. No osteomyelitic changes are identified. no lytic or sclerotic lesions are identified. Soft Tissues: Small joint effusion. Anterior soft tissue swelling consistent with recent surgery. No visible abscess. The visualized arteries of appear intact without significant stenosis. There is mild subcutaneous edema at the medial thigh. Venous structures are not yet opacified. IMPRESSION: Status post right knee prosthesis. Joint effusion is visible. There is no evidence of an abscess. An infected joint is not excluded on this exam. RADIATION DOSE DELIVERED: 457.34mGy.cm Total DLP 457.34mGy.cm Total DLP 457.34mGy.cm Total DLP DATA REPOSITORY: All CT scans at this facility are submitted to the National Radiology Data Registry (NRDR) Dose Index Registry (DIR) with the [employer] ([employer]). RADIATION OPTIMIZATION: All CT scans at this facility use at least one of these dose optimization te chniques: automated exposure control; mA and/or kV adjustment per patient size (includes targeted exa ms where dose is matched to clinical indication); or iterative reconstruction.
[2021-09-03] MEDS: Normal Saline - Diluent 50 ML VIAL IV (10:46)
[2021-09-03] MEDS: Omnipaque 350 MG/ML 100 ML BTL IJ (10:46)
[2021-09-03] MEDS: Normal Saline Flush 10 ML SYR IVP (10:47)
[2021-09-03] MEDS: CEFEPIME 2 GM in Normal Saline 100 ML IVPB ×2 (13:26→20:10)
--- NOTE | 2021-09-03 13:36 | PDOC.CMPRO ---
- If Service Date Differs Date of service: 09/03/21 Time of Service: 13:36 Care Management Progress Note S/O: Kelin was lying in bed when CM met with her. She was pleasant and engaged in conversation with CM. She stated that per Dr. Jimenez, her knee is not the source of her infection. Per report, she is on broad spectrum antibiotics, awaiting repeat blood cultures. Kelin stated that per provider, she may be here for 2-3 days until an antibiotic course is identified. CM will continue to follow. A: Kelin is a 56 year old female admitted to [facility] on 09/02/21 for Pneumonia. P: Kelin will likely be discharged home with no new services when medically cleared by provider. She will follow up with her PCP and discharge plan of care as directed. Kelin will be driven home by her son Willie via private vehicle when ready. CM will continue to follow.
--- NOTE | 2021-09-03 14:15 | W.DIABETESNO ---
Date of service: 09/03/21 Time of Service: 14:15 Diabetes Note NOTE: 56yo female admitted with CAP, N/V, transaminitis, s/p R knee replacement (09/02). PMH significant for DMII with insulin use, HTN, hypothyroid, sleep apnea and DVT prophylaxis. Meds: Aspirin, atenolol, cefepime, vitamin D3, docusate sodium, duloxetine, enoxaparin, gabapentin, insulin aspart resistant SS protocol, lactated ringers, levothyroxine, KCl, trulicity; with PRN acetaminophen, albuterol, raymond, ibuprofen, ondansetronm polyethylene glycol, prochlorperazine. Current BMI (46.6kg/m2) c/w stage III obesity ? stable wt noted x year. A1C>8% Pt denies N/V/D but states no BM in last 5 days. Advancing from clear liquids today and states lunch tolerated well. Pt relayed she was supposed to have an apt with CDE (Jose Daniel) for help with DM management ? has Jessica [address] and states it is helpful and has recently discovered that stress influences her glycemic control significantly. Estimated nutrition needs: 2334kcals (REEx1.3AF), 75g protein (1.2g/kg IBW), 3040mL fluid (obese adult pt method) Diagnosis: Stage III obesity AEB BMI >40.0kg/m2 Intervention: Pt will continue on CHO consistent/heart healthy diet as tolerated. Encouraged po fluids and getting back involved with CDE once home and stable again. Monitoring/evaluation: will follow for diet toleration now that po intake has advanced and look for normal bowel habits to return. Aquilino Rodrigues NDTR ? [employer] Install[employer] Time Spent in Nutritional Counseling and Treatment: 15 minutes
[2021-09-03] MEDS: VANCOMYCIN/WATER (PEG) 1.25 GM/250 ML BAG IV (15:15)
--- NOTE | 2021-09-03 16:52 | W.PM.PROGNOT ---
Date of Service Date of service: 09/03/21 Time of Service: 16:52 Assessment and Plan Assessment and plan (1) CAP (community acquired pneumonia): Start date: 09/03/21 Start time: 17:28 Status: Acute Assessment and plan: Shown to have Rt lung base right middle lobe infiltrate. Believe to be aspiration pneumo, as Switched to broad spectrum antibiotics as grew gram negative bacteria in her blood. Repeat blood cx for tomorrow. Concern for seeding in her new knee replacement. Albuterol and updrafts as needed Not requiring oxygen at this time. sputum cx, and repeat Blood cx pending. Qualifiers: Laterality: right Lung location: middle lobe of lung Qualified Code(s): J18.9 - Pneumonia, unspecified organism (2) Nausea & vomiting: Start date: 09/03/21 Start time: 17:34 Status: Resolved Assessment and plan: Tolerating regular diet. Qualifiers: Vomiting type: unspecified Vomiting Intractability: non-intractable Qualified Code(s): R11.2 - Nausea with vomiting, unspecified (3) Transaminitis: Start date: 09/03/21 Start time: 17:35 Status: Resolved Assessment and plan: LR infused, resolved. With her eating and drinking IVF can be DCD (4) History of total right knee replacement: Start date: 09/03/21 Start time: 17:36 Status: Acute Assessment and plan: S/p knee [address] Jimenez Consult PT Concern for infection in knee, CT revealing possible joint infection Dr. Jimenez consulted. Does not feel knee is infected. 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 (6) Hypertension: Start date: 09/03/21 Start time: 17:39 Status: Chronic Assessment and plan: continue atenolol Qualifiers: Hypertension type: unspecified Qualified Code(s): I10 - Essential (primary) hypertension (7) Hypothyroidism: Start date: 09/03/21 Start time: 17:39 Status: Chronic Assessment and plan: ablation in the past on levothyroxine, per patient can not take synthroid Qualifiers: Hypothyroidism type: other Qualified Code(s): E03.8 - Other specified hypothyroidism (8) Sleep apnea: Start date: 09/03/21 Start time: 17:39 Status: Chronic Assessment and plan: Unsure if she requires bipap or cpap, will have respiratory investigate, for now oxygen if needed. Qualifiers: Sleep apnea type: unspecified type Qualified Code(s): G47.30 - Sleep apnea, unspecified (9) DVT prophylaxis: Start date: 09/03/21 Start time: 17:39 Status: Acute Assessment and plan: heparin subcu (10) Discharge planning issues: Start date: 09/03/21 Start time: 17:39 Status: Acute Assessment and plan: Home when medically ready discusssed with Dr. Mendoza Subjective Subjective Patient reports: feels better Interval history since last seen: Patient states feeling better, no more vomiting, tolerating food. She is growing gram negative rods in . Changed to Cefepime and Vanco, Will likely d/c vanco tomorrow. She has recently had knee replacement concern for seeding as she has positive blood cultures gram negative rods. Awaiting sensitives. Treat aggressively. Likely aspiration pneumonia as she was vomiting then started to have cough, No white count. LSC. concern for possible infection in knee, CRP was 8.8 [address] Pro[address] was 8.0 CT was done of right knee questionable joint infection. Genesisa consulted; per his evaluation he her knee is doing well no concern for infection. She nannette CP, SOB. Exam Const General: cooperative, comfortable, in distress (nauseated, sick looking) mild, ill appearing acutely and No well hydrated Nutritional Appearance: obese Orientation: alert, awake and oriented x3 Eyes Eyelids: eyelids normal Pupils: PERRL EOM: EOM intact bilaterally Neck Neck: normal visual inspection and no JVD Lymphatic: no lymphadenopathy noted Resp Effort & Inspection: normal respiratory effort and able to speak in complete sentences Auscultation: clear to auscultation bilaterally Cardio Jugular venous pressure: no JVD Rhythm: regular rhythm Heart Sounds: S1 normal GI Auscultation: normal bowel sounds General: No CVA tenderness and deferred Skin General skin exam: no rashes or lesions noted Wounds: wound noted and wounds noted (well approximated surgical site, no erythema or edema. 3 weeks post surgery) Neuro General: patient alert, patient awake and patient oriented x3 Cognition: normal cognition Speech: speech normal Gait: normal gait Extrem General: normal to inspection, full ROM and no clubbing, cyanosis or edema Objective Last Vital Signs Temp 36.9 C 09/03/21 07:30 Pulse 64 09/03/21 07:30 Resp 16 09/03/21 07:30 BP 116/68 09/03/21 07:30 Pulse Ox 93 09/03/21 07:30 Laboratory Results - last 24 hr 09/03/21 09/03/21 09/03/21 06:45 06:45 06:45 WBC 6.50 RBC 3.65 L Hgb 10.3 L D Hct 32.0 L MCV 87.7 MCH 28.2 MCHC 32.2 RDW 14.0 Plt Count 136 MPV 11.2 H Immature Gran % 0.3 Neutrophils % 72.8 Lymphocytes % 15.4 Monocytes % 10.6 Eosinophils % 0.6 Basophils % 0.3 Nucleated RBC % 0 Absolute Neutrophils 4.73 Absolute Lymphocytes 1.00 L Absolute Monocytes 0.69 Absolute Eosinophils 0.04 Absolute Basophils 0.02 Sodium 140 Potassium 3.2 L Chloride 105 Carbon Dioxide 27.7 Anion Gap 7.3 BUN 14 Creatinine 0.7 Estimated GFR/1.73 m2 >= 60.00 Glucose 206 H D Calcium 9.6 Magnesium 1.9 Total Bilirubin Conjugated Bilirubin AST ALT Alkaline Phosphatase Total Protein Albumin Procalcitonin 8.0 09/03/21 06:45 WBC RBC Hgb Hct MCV MCH MCHC RDW Plt Count MPV Immature Gran % Neutrophils % Lymphocytes % Monocytes % Eosinophils % Basophils % Nucleated RBC % Absolute Neutrophils Absolute Lymphocytes Absolute Monocytes Absolute Eosinophils Absolute Basophils Sodium Potassium Chloride Carbon Dioxide Anion Gap BUN Creatinine Estimated GFR/1.73 m2 Glucose Calcium Magnesium Total Bilirubin 0.9 Conjugated Bilirubin 0.3 H AST 34 ALT 43 Alkaline Phosphatase 194 H Total Protein 5.5 L Albumin 2.7 L Procalcitonin
[2021-09-03] MEDS: Enoxaparin 40 MG/0.4 ML SYR SC (17:12)
--- NOTE | 2021-09-03 17:20 | OCONE_ITS ---
Date of service: 09/03/21 Time of Service: 13:20 History of Present Illness History of Present Illness Chief Complaint: Bacteremia and recent R TKA Narrative: Kelin is a 56-year-old who presented to the emergency department yesterday with 2 to 3 days of dysuria, chills, nausea and vomiting. She was found to have increased inflammatory markers as well as clinical signs and radiographic findings supporting the diagnosis of a right middle lobe infiltrate. This is presumed to be from an aspiration event given her vomiting over the past 2 days. She was febrile in the emergency department but had a relatively normal white count. She also was found to be hyperglycemic. On hospital day #2, her blood cultures turned positive for gram-negative whitley. I was consulted given the recent right knee replacement performed approximate 3 w eeks ago. As far as the right knee, Martha denies having any significant issues. She has been using her bike on a daily basis. She has been ambulating without assistive device. She denies any significant swelling or hyperemia or erythema about the right knee. She denies any acute changes and if anything she feels that things are continue to make good progress. She is able to move the knee fully and has no pain with range of motion or straight leg raise. She was started on antibiotics yesterday and reports improvement. She is breathing comfortably without notable distress. She is not requiring significant oxygen. She denies current fevers or chills. Consults Consult date: 09/03/21 Requesting physician: Shawnee Steven Consult Reason Right TKA and Bacteremia Assessment and Plan Assessment and plan (1) History of total right knee replacement: Status: Acute (2) Gram-negative bacteremia: Status: Acute Assessment and plan: Kelin is a 56-year-old who has gram-negative bacteremia. Speciation still pending. However, this is likely related to an aspiration event given her history of nausea and vomiting. It could also be due to a urinary tract infection as she did have dysuria preceding this. Nevertheless, she does have positive blood cultures. Therefore, it is imperative this is treated aggressively and appropriately. However, there is no need at this point to do anything differently for the right knee. Her clinical exam is beyond reassuring and needs no further intervention at this point. Without any symptoms about the right knee aspirated the knee with only incur risk of seeding it with bacteria. Therefore, she may move the knee as tolerated without restriction. Continue with her regular recovery course about the right knee and treat the bacteremia and pneumonia. I will continue to follow along if there are any changes to her symptoms. It is a possibility that the right knee can become seeded and this will have to be followed. Clinical evaluation and exam, increasing pain with range of motion or activity, would be the first hallmark. Review of Systems All systems reviewed & are unremarkable except as noted in HPI and below PFSH Active Problem List Nausea & vomiting (Acute) Transaminitis (Acute) Discharge planning issues (Acute) DVT prophylaxis (Acute) CAP (community acquired pneumonia) (Acute) Hypertension (Chronic) Hypothyroidism (Chronic) Sleep apnea (Chronic) Diabetes type 2, controlled (Chronic) History of total right knee replacement (Acute 08/11/21) History of total left knee replacement (Acute) Internal derangement of left knee (Acute 05/26/16) Mucous cyst of finger (Acute 12/28/15) Surgical menopause (Acute 08/23/13) Neoplasm of unspecified behavior of bone, soft tissue, and skin (Chronic) Osteoarthritis of both knees (Acute) Seborrheic keratosis (Acute) Serrated adenoma of colon (Acute) Actinic keratosis (Acute) Fibromyalgia (Acute) BMI 45.0-49.9, adult (Acute) Venous insufficiency (Acute) Insomnia (Acute) Vitamin D deficiency (Acute) Post-traumatic osteoarthritis of right knee (Acute) Medical History Asthma Back pain Depression Diarrhea Ganglion cyst of wrist GERD (gastroesophageal reflux disease) pt. denies Hiatal hernia Hx of ovarian cyst Hx of traumatic brain injury Hyperlipidemia Migraine Morbid obesity with BMI of 50.0-59.9, adult Peripheral neuropathy Risk for falls Urinary incontinence Surgical History ganglion cyst excision History of colonoscopy History of gastric bypass Hx of bilateral oophorectomy Hx of cholecystectomy Hx of knee surgery R knee fracture, remove hardware Social History Smoking/Tobacco Use Status: Never Smoking risk assessment performed?: Yes Alcohol Intake: current Alcohol Intake frequency: holidays/special occasions only Drug use: Never Substance use type: does not use Details: alcohol: t-5 Current gender identity: female Do you feel safe at home: Yes Do you feel safe in your relationship?: No Exam Narrative Exam Narrative: Sitting up in the hospital bed. No acute distress. Alert on x3. Evaluation of the right knee shows a well-healed incision. No signs of infection. No erythema. Very minimal swelling of any at all about the right knee. She is able to straight leg raise without significant pain. She has no extension lag. Good strength against resistance once again without pain. Range of motion is approximately 5 to 110 degrees. The knee is stable to varus and valgus stress. No significant pain with palpation except mild amounts immed iately. No notable effusion. Results Last Vital Signs Temp 36.9 C 09/03/21 07:30 Pulse 64 09/03/21 07:30 Resp 16 09/03/21 07:30 BP 116/68 09/03/21 07:30 Pulse Ox 93 09/03/21 07:30 Labs Result diagrams: 09/03/21 06:45 09/03/21 06:45 Labs: Laboratory Results - last 24 hr 09/03/21 09/03/21 09/03/21 06:45 06:45 06:45 WBC 6.50 RBC 3.65 L Hgb 10.3 L D Hct 32.0 L MCV 87.7 MCH 28.2 MCHC 32.2 RDW 14.0 Plt Count 136 MPV 11.2 H Immature Gran % 0.3 Neutrophils % 72.8 Lymphocytes % 15.4 Monocytes % 10.6 Eosinophils % 0.6 Basophils % 0.3 Nucleated RBC % 0 Absolute Neutrophils 4.73 Absolute Lymphocytes 1.00 L Absolute Monocytes 0.69 Absolute Eosinophils 0.04 Absolute Basophils 0.02 Sodium 140 Potassium 3.2 L Chloride 105 Carbon Dioxide 27.7 Anion Gap 7.3 BUN 14 Creatinine 0.7 Estimated GFR/1.73 m2 >= 60.00 Glucose 206 H D Calcium 9.6 Magnesium 1.9 Total Bilirubin Conjugated Bilirubin AST ALT Alkaline Phosphatase Total Protein Albumin Procalcitonin 8.0 09/03/21 06:45 WBC RBC Hgb Hct MCV MCH MCHC RDW Plt Count MPV Immature Gran % Neutrophils % Lymphocytes % Monocytes % Eosinophils % Basophils % Nucleated RBC % Absolute Neutrophils Absolute Lymphocytes Absolute Monocytes Absolute Eosinophils Absolute Basophils Sodium Potassium Chloride Carbon Dioxide Anion Gap BUN Creatinine Estimated GFR/1.73 m2 Glucose Calcium Magnesium Total Bilirubin 0.9 Conjugated Bilirubin 0.3 H AST 34 ALT 43 Alkaline Phosphatase 194 H Total Protein 5.5 L Albumin 2.7 L Procalcitonin Imaging Imaging Studies: A CT scan of the right knee was performed. This shows a well- placed prosthesis. No signs of fracture. Minimal effusion. No suspicious lesions. No signs of abscess. Components are well-positioned.
[2021-09-03] MEDS: Lactated Ringers 1,000 ML 125 ML IV (17:27)
--- NOTE | 2021-09-03 17:33 | CHAPLAIN ---
Kelin was resting in bed when I visited. She told me about the vomiting, fever, and chills that brought her here. She is waiting to here if her recent knee replacement is infected. She has three sons who keep in close contact with her and one lives locally.
[2021-09-03 19:45] VITALS: BP 128/68; PULSE 73; RESP 18; TEMP 36.5; O2SAT 96
[2021-09-03] MEDS: Insulin Glargine 300 UNITS/3 ML PEN SC (22:50)
[2021-09-04] MEDS: VANCOMYCIN/WATER (PEG) 1.25 GM/250 ML BAG IV (00:29)
[2021-09-04 02:20] VITALS: BP 138/78; PULSE 69; RESP 20; TEMP 36.5; O2SAT 95
[2021-09-04] MEDS: CEFEPIME 2 GM in Normal Saline 100 ML IVPB ×3 (03:41→20:49)
[2021-09-04] MEDS: Levothyroxine 100 MCG TAB 200 MCG PO (05:36)
[2021-09-04] MEDS: Acetaminophen 325 MG TAB 650 MG PO (05:41)
[2021-09-04] MEDS: Ibuprofen 600 MG TAB PO ×3 (05:41→22:39)
[2021-09-04] MEDS: Normal Saline Flush 10 ML SYR IVP ×2 (05:45→14:55)
[2021-09-04] MEDS: Ondansetron 4 MG/2 ML VIAL IVP (05:49)
[2021-09-04 07:12] LABS: Anion Gap 9.7 mmol/L (3-11); BUN 12 mg/dL (7-18); CO2 25.3 mmol/L (21.0-32.0); CREATININE 0.7 mg/dL (0.55-1.02); Calcium 9.3 mg/dL (8.5-10.1); Chloride 103 mmol/L (98-107); Glucose 213 mg/dL (74-106); Magnesium 1.6 mg/dL (1.8-2.4); Potassium 3.9 mmol/L (3.5-5.1); Sodium 138 mmol/L (136-145)
[2021-09-04 07:23] LABS: Hemoglobin A1C 7.1 % (<5.7)
[2021-09-04 07:40] VITALS: BP 127/73; PULSE 80; RESP 17; TEMP 37.5; O2SAT 95
[2021-09-04] MEDS: Gabapentin 100 MG CAP PO ×2 (07:42→20:48)
[2021-09-04] MEDS: DULoxetine 30 MG CAP PO (07:42)
[2021-09-04] MEDS: Cholecalciferol (Vitamin D3) 1,000 UNIT TAB 1000 UNITS PO (07:42)
[2021-09-04] MEDS: Atenolol 25 MG TAB 50 MG PO ×2 (07:43→20:48)
[2021-09-04] MEDS: Insulin Aspart 300 UNITS/3 ML PEN SC ×3 (07:43→17:15)
[2021-09-04] MEDS: Aspirin E.C. 81 MG TABEC PO ×2 (07:48→20:48)
[2021-09-04] MEDS: MAGNESIUM SULFATE 4 GM/100 ML BAG IVPB (09:14)
--- NOTE | 2021-09-04 10:54 | IN_ITS ---
PT Notes Visit Reasons: Pneumonia Inpatient Physical Therapy Evaluation Date: 09/04/21 Referring Doctor: Shawnee Catalan NP PT Orders: PT CONSULT: limited ability to ambulate Precautions: fall, standard Patient Profile/Admitting Diagnosis: Patient admitted for medical management of pneumonia. She is 3 weeks s/p right TKA, and was seen by ortho yesterday to rule out infection in right knee. Cleared for PT consult. PMHX: History of total right knee replacement (Acute 08/11/21) History of total left knee replacement (Acute) Internal derangement of left knee (Acute 05/26/16) Mucous cyst of finger (Acute 12/28/15) Surgical menopause (Acute 08/23/13) Neoplasm of unspecified behavior of bone, soft tissue, and skin (Chronic) Osteoarthritis of both knees (Acute) Seborrheic keratosis (Acute) Serrated adenoma of colon (Acute) Actinic keratosis (Acute) Fibromyalgia (Acute) BMI 45.0-49.9, adult (Acute) Venous insufficiency (Acute) Insomnia (Acute) Vitamin D deficiency (Acute) Post-traumatic osteoarthritis of right knee (Acute) Medical History Asthma Back pain Depression Diabetes type 2, controlled Diarrhea Ganglion cyst of wrist GERD (gastroesophageal reflux disease) pt. denies Hiatal hernia Hx of ovarian cyst Hx of traumatic brain injury Hyperlipidemia Hypertension Hypothyroidism Migraine Morbid obesity with BMI of 50.0-59.9, adult Peripheral neuropathy Risk for falls Sleep apnea Urinary incontinence Surgical History ganglion cyst excision History of colonoscopy History of gastric bypass Hx of bilateral oophorectomy Hx of cholecystectomy Hx of knee surgery R knee fracture, remove hardware Social History/Home Situation: Patient lives independently in an apartment in [facility]. She is fully independent with ADLs at baseline and typically ambulates without a device. She has been recovering from TKA, and has been intermittently using a SPC, otherwise ambulating independently. She has been receiving assistance at home from friends from her [employer] group as she recovers from surgery. Current Functional Limitations: denies Equipment Owned/DME: SPC Subjective: Kelin states that she has been struggling through a migraine this morning. She does not feel up to walking at time of consultation, partly due to receiving her IV antibiotics at time of consult. She states that she's been ambulating in her room without a device, and is not having any difficulty with her mobility. She is hoping to walk down to take a shower later today. Objective: General Observation: Resting in bed with IV in RUE. Surgical incision over anterior right knee, which is well healing and mobile. No redness or warmth about knee. No post-op edema noted. Mental Status: A&Ox3. Pleasant and cooperative. Pain: reports soreness in posterior knee, unable to quantify ROM: Right Upper Extremity: WFL Left Upper Extremity: WFL Right Lower Extremity: Right knee allows 0-100 degrees flexion Left Lower Extremity: WFL at the left hip, knee and ankle Strength: Right Upper Extremity: Grossly WFL Left Upper Extremity: Grossly WFL Right Lower Extremity: Good quad activation with quad setting. Patient able to perform SLR without extension lag. Left Lower Extremity: Grossly WFL Bed Mobility/Transfers: Patient declines bed mobility and transfers, although reports full independence. Gait: Patient declines ambulation, reporting she has been walking to and from the b athroom independently since admission. Requires assistance only for IV management when Abx are running. Balance: Static Sitting: unable to assess Dynamic Sitting: unable to assess Static Standing: unable to assess Dynamic Standing: unable to assess Special Tests: Mobility Limitations Standardized Measure [facility] 6 clicks Basic Mobility Inpatient Short Form: Raw Score: 24 CMS Score: 0%impairment Informed Consent/Education: Patient instructed in purpose of PT consult and p lina of care. Assessment: Patient is a 56 year old female referred to physical therapy services with the diagnosis of limited ability to ambulate. Patient presents with clinical signs and symptoms consistent with her post-op status, as she is 3 weeks out of TKA, and complicated by her acute medical issues. She requires PT intervention to allow for continued progression along her post-op protocol, as well as to prevent deconditioning and joint contracture as she recovers from her acute medical issues. She currently demonstrates the following impairment level findings: 1. decreased right knee ROM 2. decreased skin integrity 3. gait impairments, with intermittent need for AD Impairments are contributing to the following functional limitations: 1. decreased tolerance to community distance ambulation 2. risk for joint contracture due to limitations in mobility during hospitalization 3. risk for deconditioning due to limitations in mobility during hospitalization Patient is assessed as Moderate [id number] complexity based on the following: History: Patient is a 56 year old female referred for PT consult in acute care setting, where she is being treated for community aquired pneumonia. She is additionally 3 weeks s/p right TKA. She has a complicated medical history which includes TBI with frequent migraines, fibromyalgia, and diabetes. Examination: functional limitations as noted above Presentation: evolving Decision Making: moderate complexity Goals: Goals X1 week 1. Supine-Sit : independent 2. Sit-Supine : independent 3. Sit-Stand : independent 4. Stand-Sit : independent 5. Bed-Chair : independent 6. Chair-Bed : independent 7. Gait : supervision with LRD x 150' 8. Stairs : supervision with bilat rails, steps x 3 Plan of Care/Treatment Plan: 1-2x/day, 7 days/week x 1 week. Plan of care has been reviewed with the PATIENT ATTENDANT providing the service under Physical Therapy direction. Initiate Physical Therapy intervention for strengthening, bed mobility, transfers, gait, stairs, balance training, use of assistive device. DISCHARGE RECOMMENDATIONS: Home with no services TREATMENT CODE/TIME: 11:05-11:30 ([id number]) Hanh Garnica, PT, DPT [facility]
[2021-09-04 10:59] VITALS: TEMP 37.4
[2021-09-04] MEDS: Butalbital/Acetaminophen/Caffeine 50/325/40 TAB PO ×3 (13:33→22:40)
--- NOTE | 2021-09-04 13:36 | W.PM.PROGNOT ---
Date of Service Date of service: 09/04/21 Time of Service: 13:36 Assessment and Plan Assessment and plan (1) Gram-negative bacteremia: Start date: 09/04/21 Start time: 13:40 Status: Acute Assessment and plan: Blood cultures with E. Coli. On cefepime. Awaiting sensitivities. RLL pneumonia Urine cx so far negative. Could have been aspiration pneumonia, due to vomiting. No leukocytosis clinically does not appear to have pneumonia, no cough, no sputum production. Will treat for a longer course with antibiotics due to recent s/p knee replacement. 4-[address] with questionable joint infection. Dr. Jimenez evaluated and does not feel knee infected will treat to prevent seeding due to bactermia (2) CAP (community acquired pneumonia): Start date: 09/04/21 Start time: 13:46 Status: Acute Assessment and plan: Shown to have Rt lung base right middle lobe infiltrate. Believe to be aspiration pneumo, as above Qualifiers: Laterality: right Lung location: middle lobe of lung Qualified Code(s): J18.9 - Pneumonia, unspecified organism (3) Nausea & vomiting: Start date: 09/04/21 Start time: 13:47 Status: Resolved Assessment and plan: Tolerating regular diet. Qualifiers: Vomiting type: unspecified Vomiting Intractability: non-intractable Qualified Code(s): R11.2 - Nausea with vomiting, unspecified (4) Transaminitis: Start date: 09/04/21 Start time: 13:47 Status: Resolved Assessment and plan: resolved. (5) History of total right knee replacement: Start date: 09/04/21 Start time: 13:47 Status: Acute Assessment and plan: S/p knee [address] Jimenez PT working with her as above (6) Diabetes type 2, controlled: Start date: 09/04/21 Start time: 13:48 Status: Chronic Assessment and plan: On trulicity weekly SSI ordered with Fingersticks over 180 will add lantus and monitor Continues to be elevated above 200 increase lantus to 10 units. Qualifiers: Diabetes mellitus group home insulin use: with long term care pharmacist use Diabetes mellitus complication status: without complication Qualified Code(s): E11.9 - Type 2 diabetes mellitus without complications; Z79.4 - group home (current) use of insulin (7) Hypertension: Start date: 09/04/21 Start time: 13:49 Status: Chronic Assessment and plan: continue atenolol also for migraines. Normotensive Qualifiers: Hypertension type: unspecified Qualified Code(s): I10 - Essential (primary) hypertension (8) Hypothyroidism: Start date: 09/04/21 Start time: 13:50 Status: Chronic Assessment and plan: ablation in the past on levothyroxine, per patient can not take synthroid Qualifiers: Hypothyroidism type: other Qualified Code(s): E03.8 - Other specified hypothyroidism (9) Migraine: Start date: 09/04/21 Start time: 13:50 Status: Acute Assessment and plan: Takes atenolol BID for migraine, migraine today, atenolol was taken but did not take migraine away. Trial fioricet. (10) Sleep apnea: Start date: 09/04/21 Start time: 13:51 Status: Chronic Assessment and plan: Unsure if she requires bipap or cpap, will have respiratory investigate, for now oxygen if needed. Qualifiers: Sleep apnea type: unspecified type Qualified Code(s): G47.30 - Sleep apnea, unspecified (11) DVT prophylaxis: Start date: 09/04/21 Start time: 13:51 Status: Acute Assessment and plan: heparin subcu (12) Discharge planning issues: Start date: 09/04/21 Start time: 13:51 Status: Acute Assessment and plan: Home when medically ready discusssed with Dr. Camejo Subjective Subjective Patient reports: other Interval history since last seen: Patient states having Migraine. did not sleep well. Takes atenolol, helped a little but still there. Will trial fioricet for migraine. repeat blood cultures pending. Exam Const General: cooperative, comfortable, in distress (nauseated, sick looking) mild, ill appearing acutely and No well hydrated Nutritional Appearance: obese Orientation: alert, awake and oriented x3 Eyes Eyelids: eyelids normal Pupils: PERRL EOM: EOM intact bilaterally Neck Neck: normal visual inspection and no JVD Lymphatic: no lymphadenopathy noted Resp Effort & Inspection: normal respiratory effort and able to speak in complete sentences Auscultation: clear to auscultation bilaterally Cardio Jugular venous pressure: no JVD Rhythm: regular rhythm Heart Sounds: S1 normal GI Auscultation: normal bowel sounds General: No CVA tenderness and deferred Skin General skin exam: no rashes or lesions noted Wounds: wound noted and wounds noted (well approximated surgical site, no erythema or edema. 3 weeks post surgery) Neuro General: patient alert, patient awake and patient oriented x3 Cognition: normal cognition Speech: speech normal Gait: normal gait Extrem General: normal to inspection, full ROM and no clubbing, cyanosis or edema Objective Last Vital Signs Temp 37.4 C 09/04/21 10:59 Pulse 80 09/04/21 07:40 Resp 17 09/04/21 07:40 BP 127/73 09/04/21 07:40 Pulse Ox 95 09/04/21 07:40 Laboratory Results - last 24 hr 09/04/21 09/04/21 06:35 06:35 Sodium 138 Potassium 3.9 D Chloride 103 Carbon Dioxide 25.3 Anion Gap 9.7 BUN 12 Creatinine 0.7 Estimated GFR/1.73 m2 >= 60.00 Glucose 213 H Hemoglobin A1c 7.1 H Calcium 9.3 Magnesium 1.6 L
[2021-09-04 15:20] VITALS: BP 134/80; PULSE 85; RESP 18; TEMP 38; O2SAT 95
[2021-09-04] MEDS: Enoxaparin 40 MG/0.4 ML SYR SC (17:14)
[2021-09-04] MEDS: Insulin Glargine 300 UNITS/3 ML PEN 10 UNITS SC (22:33)
[2021-09-04 23:16] VITALS: BP 129/75; PULSE 67; RESP 16; TEMP 37.7; O2SAT 95
[2021-09-05] MEDS: CEFEPIME 2 GM in Normal Saline 100 ML IVPB (03:50)
[2021-09-05] MEDS: Ibuprofen 600 MG TAB PO ×3 (05:37→19:59)
[2021-09-05] MEDS: Acetaminophen 325 MG TAB 650 MG PO ×3 (05:37→18:35)
[2021-09-05] MEDS: Levothyroxine 100 MCG TAB 200 MCG PO (05:37)
[2021-09-05 07:00] LABS: Abs Immature Grans 0.02 10^3/uL (0.0-0.06); Absolute Basophil Count 0.02 10^3/uL (0.0-0.2); Absolute Eosinophil Count 0.19 10^3/uL (0.0-0.7); Absolute Lymphocyte Count 1.22 10^3/uL (1.2-3.4); Absolute Neutrophil Count 2.99 10^3/uL (1.2-6.7); Basophils % 0.4; Eosinophils % 3.8; HCT 32.2 % (36.0-46.0); HGB 10.4 g/dL (11.2-15.7); Immature Grans % 0.4; Lymphocytes % 24.7; MCH 28.2 pg (27.0-33.0); MCHC 32.3 % (32.0-36.0); MCV 87.3 fL (80-95); Monocytes % 10.1; Neutrophils % 60.6; Nucleated RBC 0 %; RBC 3.69 10^6/uL (3.93-5.22); RDW-SD 45.3 fL; WBC 4.94 10^3/uL (4.4-10.8)
[2021-09-05 07:11] LABS: Anion Gap 7.2 mmol/L (3-11); BUN 11 mg/dL (7-18); CO2 27.8 mmol/L (21.0-32.0); CREATININE 0.6 mg/dL (0.55-1.02); Chloride 107 mmol/L (98-107); Glucose 178 mg/dL (74-106); Magnesium 2.4 mg/dL (1.8-2.4); Potassium 3.8 mmol/L (3.5-5.1); Sodium 142 mmol/L (136-145)
[2021-09-05 07:18] LABS: Diff Comment Diff Reviewed; RBC Morphology Normal
[2021-09-05 07:59] VITALS: BP 135/78; PULSE 63; RESP 17; TEMP 36.8; O2SAT 97
[2021-09-05] MEDS: Atenolol 25 MG TAB 50 MG PO ×2 (08:21→19:57)
[2021-09-05] MEDS: DULoxetine 30 MG CAP PO (08:21)
[2021-09-05] MEDS: Gabapentin 100 MG CAP PO ×2 (08:21→19:53)
[2021-09-05] MEDS: Aspirin E.C. 81 MG TABEC PO ×2 (08:21→19:53)
[2021-09-05] MEDS: Insulin Aspart 300 UNITS/3 ML PEN SC ×3 (08:22→17:41)
[2021-09-05] MEDS: Cholecalciferol (Vitamin D3) 1,000 UNIT TAB 1000 UNITS PO (08:23)
[2021-09-05] MEDS: PIPERACILLIN/TAZO 3.375 GM in Normal Saline 50 ML IVPB ×2 (10:27→18:06)
--- NOTE | 2021-09-05 11:45 | PT.INTREAT ---
PT Notes Visit Reasons: Pneumonia Inpatient Physical Therapy Treatment Note [facility] Date: 09/05/21 SUBJECTIVE:Kelin states that she is feeling better than she did yesterday. She c/o stiffness in her knee but reports compliancy with HEP and ROM. OBJECTIVE: [] BED MOBILITY/TRANSFERS pt sitting in recliner. Sit-stand: I Stand-sit: I GAIT Assistive Device:SPC Weight bearing:WBAT Assist: S Distance: 300' with 1 sitting rest x [address] through ambulation ASSESSMENT: tolerated session well. Independent with ex and functional mobility PLAN: will continue endurance, may try Nu step tomorrow? TREATMENT CODE/TIME: 20 min [id number]
[2021-09-05] MEDS: Normal Saline Flush 10 ML SYR IVP ×2 (14:53→18:07)
[2021-09-05 15:30] VITALS: BP 143/77; PULSE 64; RESP 18; TEMP 36.8; O2SAT 97
--- NOTE | 2021-09-05 16:24 | W.PM.PROGNOT ---
Date of Service Date of service: 09/05/21 Time of Service: 16:24 Assessment and Plan Assessment and plan (1) Gram-negative bacteremia: Start date: 09/05/21 Start time: 16:31 Status: Acute Assessment and plan: Blood cultures with E. Coli. Continued to run fevers last night switched to zosyn. E. coli, Awaiting sensitivities. RLL pneumonia Possible discharge tomorrow Will need 6 week course due to s/p knee replacement 3 weeks ago to prevent seeding after speaking with Dr. Jimenez. Last fever over 24 hours. (2) CAP (community acquired pneumonia): Start date: 09/05/21 Start time: 16:33 Status: Acute Assessment and plan: Shown to have Rt lung base right middle lobe infiltrate. Believe to be possible aspiration pneumo, as above Qualifiers: Laterality: right Lung location: middle lobe of lung Qualified Code(s): J18.9 - Pneumonia, unspecified organism (3) Nausea & vomiting: Start date: 09/05/21 Start time: 16:33 Status: Resolved Assessment and plan: Tolerating regular diet. Qualifiers: Vomiting type: unspecified Vomiting Intractability: non-intractable Qualified Code(s): R11.2 - Nausea with vomiting, unspecified (4) Transaminitis: Start date: 09/05/21 Start time: 16:33 Status: Resolved Assessment and plan: resolved. (5) History of total right knee replacement: Start date: 09/05/21 Start time: 16:33 Status: Acute Assessment and plan: S/p knee [address] Jimenez PT working with her as above (6) Diabetes type 2, controlled: Start date: 09/05/21 Start time: 16:33 Status: Chronic Assessment and plan: On trulicity weekly SSI ordered with Fingersticks over 180 will add lantus and monitor Continues to be elevated above 200 increase lantus to 10 units. 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 (9) DVT prophylaxis: Start date: 09/05/21 Start time: 16:35 Status: Acute Assessment and plan: heparin subcu (10) Discharge planning issues: Start date: 09/05/21 Start time: 16:35 Status: Acute Assessment and plan: Home when medically ready discusssed with Dr. Camejo Subjective Subjective Patient reports: no new complaints Interval history since last seen: Feeling better. Given fioricet for migraine, she states was very helpful. No c/o [place] today. Last fever was 1520 yesterday. Repeat BC negative after 48. Awaiting sensitives. Possible discharge tomorrow if sensitivites back recommend 6 week course due to bactemia with s/p knee replacement 3 weeks ago. Exam Const General: cooperative, healthy appearing and comfortable Nutritional Appearance: obese Orientation: alert, awake and oriented x3 Eyes Eyelids: eyelids normal Pupils: PERRL EOM: EOM intact bilaterally Neck Neck: normal visual inspection and no JVD Lymphatic: no lymphadenopathy noted Resp Effort & Inspection: normal respiratory effort and able to speak in complete sentences Auscultation: clear to auscultation bilaterally Cardio Jugular venous pressure: no JVD Rhythm: regular rhythm Heart Sounds: S1 normal GI Auscultation: normal bowel sounds General: No CVA tenderness Skin General skin exam: no rashes or lesions noted Wounds: wound noted and wounds noted (well approximated surgical site, no erythema or edema. 3 weeks post surgery) Neuro General: patient alert, patient awake and patient oriented x3 Cognition: normal cognition Speech: speech normal Gait: normal gait Extrem General: normal to inspection, full ROM and no clubbing, cyanosis or edema Objective Last Vital Signs Temp 36.8 C 09/05/21 07:59 Pulse 63 09/05/21 07:59 Resp 17 09/05/21 07:59 BP 135/78 09/05/21 07:59 Pulse Ox 97 09/05/21 07:59 Laboratory Results - last 24 hr 09/05/21 09/05/21 06:25 06:25 WBC 4.94 RBC 3.69 L Hgb 10.4 L Hct 32.2 L MCV 87.3 MCH 28.2 MCHC 32.3 RDW 14.0 Plt Count MPV Immature Gran % 0.4 Neutrophils % 60.6 Lymphocytes % 24.7 Monocytes % 10.1 Eosinophils % 3.8 Basophils % 0.4 Nucleated RBC % 0 Absolute Neutrophils 2.99 Absolute Lymphocytes 1.22 Absolute Monocytes 0.50 Absolute Eosinophils 0.19 Absolute Basophils 0.02 RBC Morphology Normal Sodium 142 Potassium 3.8 Chloride 107 Carbon Dioxide 27.8 Anion Gap 7.2 BUN 11 Creatinine 0.6 Estimated GFR/1.73 m2 >= 60.00 Glucose 178 H Calcium 9.0 Magnesium 2.4 C-Reactive Protein 6.80 H
[2021-09-05] MEDS: Enoxaparin 40 MG/0.4 ML SYR SC (18:07)
[2021-09-05 19:59] VITALS: TEMP 37.7
[2021-09-05 20:00] VITALS: BP 148/80; PULSE 69; RESP 18; TEMP 37.7; O2SAT 94
[2021-09-05] MEDS: Insulin Glargine 300 UNITS/3 ML PEN 10 UNITS SC (21:24)
[2021-09-05 23:55] VITALS: BP 135/78; PULSE 63; RESP 17; TEMP 36.7; O2SAT 97
[2021-09-06] MEDS: PIPERACILLIN/TAZO 3.375 GM in Normal Saline 50 ML IVPB ×2 (01:35→10:21)
[2021-09-06] MEDS: Acetaminophen 325 MG TAB 650 MG PO (03:31)
[2021-09-06] MEDS: Ibuprofen 600 MG TAB PO (03:31)
[2021-09-06] MEDS: Normal Saline Flush 10 ML SYR IVP (06:35)
[2021-09-06] MEDS: Levothyroxine 100 MCG TAB 200 MCG PO (06:35)
[2021-09-06 06:41] VITALS: BP 148/69; PULSE 64; RESP 18; TEMP 37; O2SAT 94
[2021-09-06 07:47] VITALS: BP 159/91; PULSE 59; RESP 18; TEMP 36.4; O2SAT 95
[2021-09-06] MEDS: Atenolol 25 MG TAB 50 MG PO (10:22)
[2021-09-06] MEDS: Aspirin E.C. 81 MG TABEC PO (10:22)
[2021-09-06] MEDS: Gabapentin 100 MG CAP PO (10:22)
[2021-09-06] MEDS: Cholecalciferol (Vitamin D3) 1,000 UNIT TAB 1000 UNITS PO (10:22)
[2021-09-06] MEDS: DULoxetine 30 MG CAP PO (10:22)
[2021-09-06] MEDS: Insulin Aspart 300 UNITS/3 ML PEN SC (10:23)
--- NOTE | 2021-09-06 12:38 | W.PM.DS.N ---
Date of service: 09/06/21 Time of Service: 12:38 DS: Diagnosis Discharge Diagnosis (1) Gram-negative bacteremia: Status: Acute (2) CAP (community acquired pneumonia): Status: Acute (3) Nausea & vomiting: Status: Resolved (4) Transaminitis: Status: Resolved (5) History of total right knee replacement: Status: Acute (6) Diabetes type 2, controlled: Status: Chronic (7) Hypothyroidism: Status: Chronic (8) Migraine: Status: Acute Discharge Plan Disposition Patient Disposition: HOME Condition: Stable Discharge Details Reason For Visit: Pneumonia Admit Date/Time: 09/03/21 17:40 Admit Provider: Rober Mendoza Attending Provider: Rober Mendoza [facility]: This is a 56-year-old female with history of type 2 insulin-dependent diabetes, recent right total knee replacement, venous insufficiency, insomnia who presented to the ED with report of dysuria which started on Monday followed by fever on Monday, subjective. She also reported weakness, nausea/vomiting and flank pain. Blood sugar was noted to be poorly controlled up in the 300 range. She denied any shortness of breath or cough. She is fully vaccinated for COVID-19. she denies any pain in the recently replaced knee, swelling, rash states she had symptoms of yeast infection, called her provider who prescribed a dose of Diflucan. Her work up included extensive labs and imaging she she was admitted with pneumonia, UTI, poorly controlled diabetes likely d/t acute infection. She was started on doxycycline and ceftriaxone. She was found to have increased inflammatory markers as well as clinical signs and radiographic findings supporting the diagnosis of a right middle lobe infiltrate. This is presumed to be from an aspiration event given her vomiting over the past 2 days. given the recent right knee replacement performed approximate 3 weeks ago, orthopedic surgery was consulted and because of her positive blood cultures which grew acosta sensitive ecoli, as did her urine they recommend aggressive antibiotics to complete a 6 week course. Her cultures cleared after one day of antibiotics. These had been broadened to include vanco and maxipime initially while awaiting the culture results, she was ultimately placed on zosyn when they became available. she has remained medically stable, she will complete 6 weeks of levaquin daily based on cultures for bacteremia in setting of recent knee replacement. she will follow up with orthopedics outpatient discharge discussed with Dr Camejo Black Meds and New Rx's Prescriptions: New levofloxacin 750 mg tablet 750 mg PO DAILY Qty: 40 RF: 0 Continued insulin aspart U-100 [Novolog Flexpen U-100 Insulin] 100 unit/mL (3 mL) insulin pen 30 unit subcut QID RF: 0 Trulicity 0.75 mg/0.5 mL pen injector 0.75 mg subcut QWEEK RF: 0 Levemir FlexTouch U-100 Insuln 100 unit/mL (3 mL) insulin pen 20 unit subcut QHS RF: 0 calcium citrate 1,000 mg tablet 1,000 mg PO DAILY RF: 0 levothyroxine [Synthroid] 200 MCG tablet 200 mcg PO DAILY RF: 0 rosuvastatin [Crestor] 20 MG tablet 40 mg PO DAILY RF: 0 metformin 500 mg tablet 500 mg PO DAILY RF: 0 duloxetine 30 mg capsule,delayed release(DR/EC) 30 mg PO DAILY RF: 0 cholecalciferol (vitamin D3) 25 mcg (1,000 unit) capsule 25 mcg PO DAILY RF: 0 mecobalamin (vitamin B12) 1,000 mcg tablet,chewable 1,000 mcg PO DAILY RF: 0 levalbuterol tartrate [Xopenex HFA] 45 mcg/actuation HFA aerosol inhaler 2 inh inhalation Q6H RF: 0 albuterol sulfate [Ventolin HFA] 90 mcg/actuation HFA aerosol inhaler 2 puff inhalation Q6H PRNRF: 0 atenolol 25 mg tablet 50 mg PO BID RF: 0 gabapentin 100 mg capsule 200 mg PO TID PRN PRNRF: 0 acetaminophen 500 mg tablet 1,000 mg PO Q8H PRN (Reason: pain) Qty: 90 RF: 3 aspirin 81 mg tablet,delayed release (DR/EC) 81 mg PO BID Qty: 60 RF: 0 ibuprofen 600 mg tablet 600 mg PO TID PRN (Reason: pain) Qty: 90 RF: 3 docusate sodium [Colace] 100 mg capsule 100 mg PO BID PRNQty: 10 RF: 0 promethazine 12.5 mg tablet 12.5 mg PO Q6H PRNQty: 8 RF: 0 Discharge Instructions Instructions: Urinary Tract Infection in Women (DC), Bacteremia (DC) Stand Alone Forms: Nursing Discharge Form Referrals: Brown Jimenez MD [ [facility] STAFF PHYSICIAN] - 09/27/21 10:30 am Jonathan Smith [Primary Care Provider] - 09/13/21 11:40 am Activity:: Activity as Tolerated Equipment/Supplies:: No Equipment Needed Diet:: As Tolerated Discharge Orders Discharge Orders: Discharge Order (Routine); Ordered 09/06/21 Ordered By: Karina Khoury Discharge Data Discharge Date/Time-TO BE ENTERED AT DEPARTURE: 09/06/21 15:49 DS: Summary Time Spent with Patient providing and/or coordinating discharge services: Greater than 30 minutes Status at Discharge Functional status at discharge: uses cane/walker Overall status at discharge: patient is progressing back to baseline Mental Status: mental status grossly normal Speech and Movement: speech and movement normal Mood: congruent mood Affect: normal affect Exam Const General: cooperative and comfortable Nutritional Appearance: obese Orientation: alert, awake and oriented x3 Eyes Pupils: PERRL EOM: EOM intact bilaterally Neck Neck: normal visual inspection and no JVD Resp Effort & Inspection: normal respiratory effort and able to speak in complete sentences Auscultation: clear to auscultation bilaterally Cardio Rhythm: regular rhythm GI Auscultation: normal bowel sounds Skin General skin exam: no rashes or lesions noted Wounds: wounds noted (well approximated surgical site, no erythema or edema. 3 weeks post surgery) Neuro General: patient alert, patient awake and patient oriented x3 Cognition: normal cognition Speech: speech normal Gait: normal gait Extrem General: normal to inspection, full ROM and no clubbing, cyanosis or edema Psych Mental Status: mental status grossly normal Speech and Movement: speech and movement normal Mood: congruent mood Affect: normal affect DS: Data Vitals/I&O Vitals and I&O: Vital Signs Temperature 36.4 C L 09/06/21 07:47 Temperature Source Tympanic 09/06/21 07:47 Pulse 59 L 09/06/21 07:47 Pulse Rhythm Regular 09/06/21 11:00 Pulse 75 09/02/21 14:01 Respiratory Rate 18 09/06/21 07:47 Respiratory Effort Non-Labored 09/06/21 11:00 Respiratory Depth Normal 09/06/21 11:00 Respiratory Pattern Normal 09/06/21 11:00 Blood Pressure 159/91 H 09/06/21 07:47 Blood Pressure Mean 66 09/02/21 14:01 Blood Pressure Position Supine 09/02/21 09:05 Pulse Oximetry 95 09/06/21 07:47 Oxygen Delivery Method Room Air 09/06/21 07:47 Oxygen Flow Rate 0 09/06/21 07:47 Pain Level 2 09/06/21 07:47 Intake & Output 09/05/21 09/06/21 09/06/21 23:59 11:59 23:59 Intake Total 1050 / 1150 760 / 760 Output Total 350 / 1350 1999 Balance 700 / -200 -1240 / -1240 Intake: IV 110 / 210 60 / 60 Oral 940 / 940 700 / 700 Output: Urine 350 / 1350 1999 Other: Urine Color Yellow Straw Urine Appearance Clear Clear Urine Odor Normal Normal Stool Size Moderate Stool Characteristics Soft Voiding Methods Bedside Commode Bedside Commode Data Completed and Pending Labs on day of discharge: 09/06/21 01:40 Sputum Sputum Culture - Pending Preliminary micro results at discharge 09/03/21 06:56 Blood Culture - Preliminary Blood NO GROWTH 72 HOURS 09/03/21 06:45 Blood Culture - Preliminary Blood NO GROWTH 72 HOURS 09/06/21 01:40 Sputum Culture - Pending Sputum 09/02/21 09:35 Blood Culture - Preliminary Blood Escherichia coli 09/02/21 10:25 Blood Culture - Preliminary Blood Escherichia coli [facility] Active Problem List Nausea & vomiting (Acute) Transaminitis (Acute) Discharge planning issues (Acute) DVT prophylaxis (Acute) CAP (community acquired pneumonia) (Acute) Hypertension (Chronic) Hypothyroidism (Chronic) Sleep apnea (Chronic) Diabetes type 2, controlled (Chronic) History of total right knee replacement (Acute 08/11/21) History of total left knee replacement (Acute) Internal derangement of left knee (Acute 05/26/16) Mucous cyst of finger (Acute 12/28/15) Surgical menopause (Acute 08/23/13) Neoplasm of unspecified behavior of bone, soft tissue, and skin (Chronic) Osteoarthritis of both knees (Acute) Seborrheic keratosis (Acute) Serrated adenoma of colon (Acute) Actinic keratosis (Acute) Fibromyalgia (Acute) BMI 45.0-49.9, adult (Acute) Venous insufficiency (Acute) Insomnia (Acute) Vitamin D deficiency (Acute) Post-traumatic osteoarthritis of right knee (Acute) Medical History Asthma Back pain Depression Diarrhea Ganglion cyst of wrist GERD (gastroesophageal reflux disease) pt. denies Hiatal hernia Hx of ovarian cyst Hx of traumatic brain injury Hyperlipidemia Migraine Morbid obesity with BMI of 50.0-59.9, adult Peripheral neuropathy Risk for falls Urinary incontinence Surgical History ganglion cyst excision History of colonoscopy History of gastric bypass Hx of bilateral oophorectomy Hx of cholecystectomy Hx of knee surgery R knee fracture, remove hardware Social History Smoking/Tobacco Use Status: Never Smoking risk assessment performed?: Yes Alcohol Intake: current Alcohol Intake frequency: holidays/special occasions only Drug use: Never Substance use type: does not use Details: alcohol: t-5 Current gender identity: female Do you feel safe at home: Yes Do you feel safe in your relationship?: No
[2021-09-06] MEDS: levoFLOXacin 500 MG, levoFLOXacin 250 MG 750 MG PO (15:19)
--- NOTE | 2021-09-06 18:51 | PDOC.CMDIS ---
- If Service Date Differs Date of service: 09/06/21 Time of Service: 18:51 LACE Index Scoring Tool - Questions: Length of Stay (in days): 4 - 6 Acuity (Admit via E.D.?): Yes E.D. Visits: 1 - Answers: Total Score: 8 Risk of Readmission: Low Risk Care Management Discharge Reason for Hospitalization: Pneumonia. Discharge Plan: Kelin returned home today with no new services. CM updated her HIPAA prior to her discharge, at her request. Kelin was driven home via private vehicle by a friend. She will follow up with her PCP and discharge plan of care. She was happy to be returning home. Patient/Family Education Needs: Review discharge instructions and limitations, discussion of self care needs including ask me three.
--- NOTE | 2021-09-07 10:01 | INDS_ITS ---
Date of service: 09/07/21 PT Notes Visit Reasons: Pneumonia Physical Therapy Inpatient Discharge Summary Date: 09/07/21 Dates of service: September 04, 2020 through September 05, 2021 This is a clinical summary of care provided for the duration of dates listed above. No charge was made in the completion of this documentation. Referring Doctor: Shawnee Catalan NP PT Orders: PT CONSULT: limited ability to ambulate Precautions: fall, standard Patient Profile/Admitting Diagnosis: Patient admitted for medical management of pneumonia. She is 3 weeks s/p right TKA, and was seen by ortho yesterday to rule out infection in right knee. Cleared for PT consult. PMHX: Medical History Asthma Back pain Depression Diabetes type 2, controlled Diarrhea Ganglion cyst of wrist GERD (gastroesophageal reflux disease) pt. denies Hiatal hernia Hx of ovarian cyst Hx of traumatic brain injury Hyperlipidemia Hypertension Hypothyroidism Migraine Morbid obesity with BMI of 50.0-59.9, adult Peripheral neuropathy Risk for falls Sleep apnea Urinary incontinence Surgical History ganglion cyst excision History of colonoscopy History of gastric bypass Hx of bilateral oophorectomy Hx of cholecystectomy Hx of knee surgery R knee fracture, remove hardware Social History/Home Situation: Patient lives independently in an apartment in [facility]. She is fully independent with ADLs at baseline and typically ambulates without a device. She has been recovering from TKA, and has been intermittently using a SPC, otherwise ambulating independently. She has been receiving assistance at home from friends from her [employer] group as she recovers from surgery. Current Functional Limitations: denies Equipment Owned/DME: SPC Subjective: NT. See most recent [employer] notes. Objective: General Observation: NT. See most recent [employer] notes. Mental Status: NT. See most recent [employer] notes. Pain: NT. See most recent [employer] notes. ROM: Right Upper Extremity: WFL Left Upper Extremity: WFL Right Lower Extremity: Right knee allows 0-100 degrees flexion Left Lower Extremity: WFL at the left hip, knee and ankle Strength: Right Upper Extremity: Grossly WFL Left Upper Extremity: Grossly WFL Right Lower Extremity: Good quad activation with quad setting. Patient able to perform SLR without extension lag. Left Lower Extremity: Grossly WFL Bed Mobility/Transfers: Rolling independent Supine to sit independent Sit to supine independent Sit to stand independent Stand to sit independent Bed to chair independent Chair to bed independent Gait: Able to tolerate level surface ambulation of 300 feet with supervision requiring single-point cane with WBAT on the right LE. Balance: Static Sitting: Normal Dynamic Sitting: Normal Static Standing: Good Dynamic Standing: Fair Assessment: Martha demonstrates functional mobility improvement during this episode requiring only single-point cane level surface ambulation of up to 300 feet. Goals: Goals X1 week 1. Supine-Sit : independent MET 2. Sit-Supine : independent MET 3. Sit-Stand : independent MET 4. Stand-Sit : independent MET 5. Bed-Chair : independent MET 6. Chair-Bed : independent MET 7. Gait : supervision with LRD x 150' MET 8. Stairs : supervision with bilat rails, steps x 3 MET DISCHARGE RECOMMENDATIONS: Home with no services TREATMENT CODE/TIME: MN Thank you for the opportunity to participate in the care of this patient. Beverley Garcia PT, DPT, CLT [facility] [place], [place]
== END 2021-09-06 15:49 | disposition home or self-care (01) | DRG 178 ==
LOC: ER 09:05 → MS 15:10
PROVIDERS: Nurse Practitioner Family; Admitting Provider Internal Medicine; Emergency Provider Physician Assistant; PCP Family Medicine; Visit Provider Internal Medicine
DX: J69.0 Pneumonitis due to inhalation of food and vomit (principal); N39.0 Urinary tract infection, site not specified; Z68.42 Body mass index [BMI] 45.0-49.9, adult; R74.01 Elevation of levels of liver transaminase levels; R11.2 Nausea with vomiting, unspecified; Z79.4 Long term (current) use of insulin; E03.9 Hypothyroidism, unspecified; G47.30 Sleep apnea, unspecified; Z96.653 Presence of artificial knee joint, bilateral; G47.00 Insomnia, unspecified; E55.9 Vitamin D deficiency, unspecified; M79.7 Fibromyalgia; E66.01 Morbid (severe) obesity due to excess calories; Z20.822 Contact with and (suspected) exposure to COVID-19; I10 Essential (primary) hypertension; G43.909 Migraine, unspecified, not intractable, without status migrainosus; I87.8 Other specified disorders of veins; E11.65 Type 2 diabetes mellitus with hyperglycemia; B96.20 Unspecified Escherichia coli [E. coli] as the cause of diseases classified elsewhere
CPT/HCPCS: 36415; 80048; 80053; 80076; 82805; 83690; 84145; 85652; 87040; 87077; 87635; 93005; 96361; 96365; 96367; 96375; 97162; 97530; 99222; 99285; J1650; 71046; 73701; 74177; 81003; 81015; 83036; 83605; 83735; 84484; 85025; 86140; 87070; 87086; 87186; 87205; 93010; 99219; 99232; 99233; 99238; G0378; J0131; J0780; J2405; J2543; J3475; J3490

== ENCOUNTER 2021-09-20 22:36 | Outpatient (REF) | payer MEDICARE, MEDICAID, SELFPAY ==
[2021-09-20 22:57] LABS: Anion Gap 9.7 mmol/L (3-11); BUN 11 mg/dL (7-18); C-Reactive Protein 0.12 mg/dL (0.0-0.3); CO2 28.3 mmol/L (21.0-32.0); CREATININE 0.6 mg/dL (0.55-1.02); Calcium 10.3 mg/dL (8.5-10.1); Chloride 105 mmol/L (98-107); Glucose 206 mg/dL (74-106); Potassium 3.8 mmol/L (3.5-5.1); Sodium 143 mmol/L (136-145)
== END 2021-09-20 22:37 | disposition home or self-care (01) ==
LOC: NCHCN 22:36
PROVIDERS: PCP Family Medicine; Visit Provider Family Medicine
DX: A41.51 Sepsis due to Escherichia coli [E. coli] (principal)
CPT/HCPCS: 80048; 86140

== ENCOUNTER → 2021-09-27 10:52 | Outpatient (BNVA) | payer MEDICARE, MEDICAID, SELFPAY | PROVIDERS: PCP Family Medicine; Referring Provider Family Medicine; Visit Provider Student in an Organized Health Care Education/Training Program | DX: Z47.1 Aftercare following joint replacement surgery (principal); Z96.651 Presence of right artificial knee joint ==

== ENCOUNTER 2022-06-23 13:42 | Outpatient (REF) | payer MEDICARE, MEDICAID, SELFPAY | END 2022-06-23 13:43 | disposition home or self-care (01) | LOC: LBN 13:42 | PROVIDERS: PCP Family Medicine; Visit Provider Nurse Practitioner Family | DX: N39.0 Urinary tract infection, site not specified (principal) | CPT/HCPCS: 87086 ==

== ENCOUNTER 2022-08-03 19:30 | Outpatient (REF) | payer MEDICARE, MEDICAID, SELFPAY ==
[2022-08-03 19:47] LABS: HCT 46.2 % (36.0-46.0); HGB 15.6 g/dL (11.2-15.7); MCH 28.5 pg (27.0-33.0); MCHC 33.8 % (32.0-36.0); MCV 85 fL (80-95); MPV 11.9 fL (8.0-11.0); Platelet Count 212 10^3/uL (130-400); RBC 5.47 10^6/uL (3.93-5.22); RDW 12.5 % (11.7-14.6); RDW-SD 38.6 fL; WBC 9.08 10^3/uL (4.4-10.8)
[2022-08-03 20:18] LABS: ALT 46 U/L (14-59); AST 20 U/L (15-37); Alkaline Phosphatase 134 U/L (46-116); Anion Gap 9.1 mmol/L (3-11); BUN 19 mg/dL (7-18); Bilirubin, Total 1.2 mg/dL (0.2-1.0); CO2 27.9 mmol/L (21.0-32.0); CREATININE 0.7 mg/dL (0.55-1.02); Calcium 11.4 mg/dL (8.5-10.1); Chloride 105 mmol/L (98-107); Estimated GFR 100.19 (mL/min/1.73m2); Glucose 153 mg/dL (74-106); Potassium 4.2 mmol/L (3.5-5.1); Sodium 142 mmol/L (136-145); TSH 0.08 uIU/mL (0.36-3.74); Total Protein 7.1 g/dL (6.4-8.2)
== END 2022-08-03 19:31 | disposition home or self-care (01) ==
LOC: NCHCN 19:30
PROVIDERS: PCP Family Medicine; Visit Provider Family Medicine
DX: E03.9 Hypothyroidism, unspecified (principal); E11.9 Type 2 diabetes mellitus without complications; Z98.84 Bariatric surgery status
CPT/HCPCS: 80053; 85027; 84443

== ENCOUNTER 2022-08-12 15:45 | Emergency (ER) | payer MEDICARE, MEDICAID, SELFPAY ==
[2022-08-12 15:58] VITALS: BP 150/83; PULSE 79; RESP 20; TEMP 36.8; O2SAT 95
--- NOTE | 2022-08-12 16:00 | DI.RAD_ITS ---
Exam(s) XR LUMBAR SPINE COMPLETE EXAM: XR LUMBAR SPINE COMPLETE CLINICAL HISTORY: Lower back pain and spasm. TECHNIQUE: 2D digital imaging was performed of the lumbar spine. Five images were obtained. AP, la teral, right oblique, left oblique and L5-S1 spot views were obtained. COMPARISON: CR LUMBAR SPINE COMPLETE from 10/19/2010 FINDINGS: BONES: No fracture or destructive lesion. Endplate osteophytes are seen at multiple levels in the lum bar spine. Degenerative changes of the facets are seen in the lower lumbar spine. DISKS: There is disc space narrowing at T12-L1 and L1-L2. ALIGNMENT: Lumbar spinal alignment is within normal limits. No spondylolysis or spondylolisthesis. SOFT TISSUE: Surgical clips are seen in the right upper quadrant of the abdomen which may reflect sowmya or cholecystectomy. IMPRESSION: 1. No acute fracture or subluxation. 2. Degenerative changes in the lumbar spine. DATA REPOSITORY: RADIATION DOSE DELIVERED:
--- NOTE | 2022-08-12 16:17 | ED.GENADUL_ITS ---
Discharge Plan Disposition Patient Disposition: HOME Condition: Improving Discharge Details Clinical Impression: Lumbar back pain with radiculopathy affecting lower extremity Primary Care Provider: Jonathan Smith ED Provider: Henny León Home Meds and New Rx's Prescriptions: Continued insulin aspart U-100 [Novolog Flexpen U-100 Insulin] 100 unit/mL (3 mL) insulin pen 30 unit subcut QID Rx Instructions: up to 5 times per day Trulicity 0.75 mg/0.5 mL pen injector 0.75 mg subcut QWEEK Levemir FlexTouch U-100 Insuln 100 unit/mL (3 mL) insulin pen 20 unit subcut QHS levothyroxine [Synthroid] 200 MCG tablet 200 mcg PO DAILY rosuvastatin [Crestor] 20 MG tablet 40 mg PO DAILY metformin 500 mg tablet 500 mg PO DAILY levalbuterol tartrate [Xopenex HFA] 45 mcg/actuation HFA aerosol inhaler 2 inh inhalation Q6H albuterol sulfate [Ventolin HFA] 90 mcg/actuation HFA aerosol inhaler 2 puff inhalation Q6H PRN atenolol 25 mg tablet 50 mg PO BID gabapentin 100 mg capsule 300 mg PO TID PRN PRN acetaminophen 500 mg tablet 1,000 mg PO Q8H PRN (Reason: pain) Qty: 90 3RF levofloxacin 750 mg tablet 750 mg PO DAILY Qty: 40 0RF losartan 25 mg tablet Label Comments: Take 1 tablet by mouth once a day levothyroxine [Synthroid] 175 mcg tablet Label Comments: TAKE ONE TABLET BY MOUTH EVERY DAY lidocaine [Lidocaine Pain Relief] 4 % adhesive patch,medicated TOPICAL Label Comments: APPLY ONE TOPICALLY TO THE SKIN DIRECTED, 12 HOURS ON AND THEN 12 HOURS OFF aspirin [Juan David Low Dose Aspirin] 81 mg tablet,delayed release (DR/EC) 81 mg PO 1XD Label Comments: Take one tablet by mouth once a day metoprolol succinate 25 mg tablet extended release 24 hr PO Label Comments: TAKE ONE TABLET BY MOUTH EVERY EVENING albuterol 90 mcg/actuation Aerosol 90 mcg INHALATION 4XD No Action calcium citrate 1,000 mg tablet 1,000 mg PO DAILY duloxetine 30 mg capsule,delayed release(DR/EC) 30 mg PO DAILY cholecalciferol (vitamin D3) 25 mcg (1,000 unit) capsule 25 mcg PO DAILY mecobalamin (vitamin B12) 1,000 mcg tablet,chewable 1,000 mcg PO DAILY promethazine 12.5 mg tablet 12.5 mg PO Q6H PRNQty: 8 0RF Trulicity 1.5 mg/0.5 mL Pen Injector 1.5 mg SUBCUT 1XD docusate sodium 100 mg Capsule 100 mg PO 1XD fluconazole [Diflucan] 150 mg Tablet 150 mg PO 1XD Discharge Instructions Instructions: Lumbar Radiculopathy (ED), Degenerative Disc Disease (ED) Additional Instructions: X-rays show some degenerative joint disease in your lower spine. This may be an exacerbation of your peripheral neuropathy along with pain from your lower back. Follow-up with PCP regarding your labs. Take the pain medication once every 4-6 hours as needed for severe pain take it with food and no driving. Follow up with primary care provider in 3-5 days. Return to ED sooner if any worsening or concerns. Increase oral fluids. Referrals: Jonathan Smith [Primary Care Provider] - 3 days Medical Decision Making 57-year-old female presents to the ER with chief complaint of lower back spasm, severe pain with radiation down her bilateral lower extremities which began approximately 2 hours ago. She reports that approximately 4 hours ago she began with right pain and it worsened. She does have a history of diabetic peripheral neuropathy, asthma, GERD, history of back pain, hyperlipidemia. Labs ordered including CBC, CMP, L-spine x-rays morphine and Zofran. I will consider CT imaging if no improvement. Differential diagnosis includes not limited to musculoskeletal spasm, neuropathy flare, kidney stone, hypercalcemia 1744: Patient reevaluation, she reports feeling much better she is sitting up in bed. I did discuss her labs with her she verbalized understanding. CBC largely within normal limits hemoglobin 16.9 hematocrit 50.2, absolute neutrophils 6.84, CMP normal sodium potassium, BUN slightly elevated at 24 creatinine 0.7 calcium is 11.5 bilirubin is 1.3 ALT is elevated at 63 alk phos is 159 total protein 8.4, urinalysis is negative for blood or leukocytes. Liter normal saline ordered. I will consider CT due to elevated glucose elev ated bilirubin. Will give Oxycodone to go, instruct patient to follow up with PCP. This text was generated using E-Sembleation system, please disregard any oddities of phrase or misspellings. Medical Records Medical records reviewed: Yes I reviewed the patient's medical records. Imaging Data Radiologic Study: Imaging: X-Ray Radiologist's impression: Imaging protocol: Radiologic exam of the lumbosacral spine. Views: 4 or 5 views. COMPARISON: CT ABDOMEN PELVIS W 09/02/2021 11:48 AM FINDINGS: Bones/joints: The bones are demineralized. Advanced degenerative arthritis in the lumbar facets. Endplate osteophyte formation lower thoracic and upper lumbar spine. Degenerative arthritis in the sacroiliac joints. Slight lumbar curve, convex to the left. Soft tissues: Unremarkable. IMPRESSION: No acute findings. Degenerative arthritis in the lumbar spine Lab Data Lab results reviewed: Yes I reviewed the patient's lab results. Labs: Laboratory Tests Range/Units 08/12/22 08/12/22 08/12/22 17:05 17:05 17:22 WBC (4.4-10.8) 10^3/uL 8.79 RBC (3.93-5.22) 10^6/uL 5.91 H Hgb (11.2-15.7) g/dL 16.9 H Hct (36.0-46.0) % 50.2 H MCV (80-95) fL 85 MCH (27.0-33.0) pg 28.6 MCHC (32.0-36.0) % 33.7 RDW (11.7-14.6) % 12.7 Plt Count (130-400) 10^3/uL 242 MPV (8.0-11.0) fL 10.9 Immature Gran % 0.2 Neutrophils % 77.8 Lymphocytes % 17.0 Monocytes % 3.9 Eosinophils % 0.8 Basophils % 0.3 Nucleated RBC % (0.0-0.3) % 0.0 Absolute Neutrophils (1.2-6.7) 10^3/uL 6.84 H Absolute Lymphocytes (1.2-3.4) 10^3/uL 1.49 Absolute Monocytes (0.1-0.8) 10^3/uL 0.34 Absolute Eosinophils (0.0-0.7) 10^3/uL 0.07 Absolute Basophils (0.0-0.2) 10^3/uL 0.03 Sodium (136-145) mmol/L 140 Potassium (3.5-5.1) mmol/L 3.8 Chloride (98-107) mmol/L 103 Carbon Dioxide (21.0-32.0) mmol/L 29.7 Anion Gap (3-11) mmol/L 7.3 BUN (7-18) mg/dL 24 H Creatinine (0.55-1.02) mg/dL 0.7 Est GFR (CKD-EPI 2020) (mL/min/1.73m2) 100.19 Glucose (74-106) mg/dL 104 Calcium (8.5-10.1) mg/dL 11.5 H Total Bilirubin (0.2-1.0) mg/dL 1.3 H AST (15-37) U/L 30 ALT (14-59) U/L 63 H Alkaline Phosphatase (46-116) U/L 151 H Total Protein (6.4-8.2) g/dL 8.4 H Albumin (3.4-5.0) g/dL 4.7 Urine Color (Yellow) Yellow Urine Clarity (Clear) Sl Cloudy Urine pH (5-8) 6.5 Ur Specific [place] (1.005-1.025) 1.025 Urine Protein (Negative) mg/dL Negative Urine Ketones (Negative) mg/dL Negative Urine Blood (Negative) Negative Urine Nitrite (Negative) Negative Urine Bilirubin (Negative) Negative Urine Urobilinogen (Up TO 0.2) EU/dL 0.2 Ur Leukocyte Esterase (Negative) Negative Urine Glucose (Negative) mg/dL Negative HPI General Mode of arrival: wheelchair . Date/Time Provider Initiated Documentation: 08/12/22 15:57 . Limitations to Documentation: no limitations . Information obtained by: patient, official court interpreter, RN notes reviewed and old records reviewed . HPI Narrative: Was he she has had gastric bypass surgery right knee surgery and bilateral oophorectomy. She denies any loss of bowel or bladder control no recent falls, she describes the pain as spasming and burning to her bilateral lower extremities worse with standing. She does take gabapentin daily. Of note [facility] did call saying that she does have a history of hypercalcemia. Related Data Home Medications Medication Instructions Recorded Confirmed levothyroxine 200 mcg tablet 200 mcg PO DAILY 08/23/13 09/27/21 (Synthroid) rosuvastatin 20 mg tablet (Crestor) 40 mg PO DAILY 08/23/13 08/12/22 albuterol sulfate 90 mcg/actuation 2 puff inhalation Q6H PRN 11/06/20 08/12/22 aerosol inhaler (Ventolin HFA) cholecalciferol (vitamin D3) 25 25 mcg PO DAILY 11/06/20 09/27/21 mcg (1,000 unit) capsule duloxetine 30 mg capsule,delayed 30 mg PO DAILY 11/06/20 09/27/21 release levalbuterol tartrate 45 2 inh inhalation Q6H 11/06/20 09/27/21 mcg/actuation aerosol inhaler (Xopenex HFA) mecobalamin (vitamin B12) 1,000 1,000 mcg PO DAILY 11/06/20 09/27/21 mcg chewable tablet metformin 500 mg tablet 500 mg PO DAILY 11/06/20 08/12/22 calcium citrate 1,000 mg tablet 1,000 mg PO DAILY 12/31/20 09/27/21 atenolol 25 mg tablet 50 mg PO BID 03/03/21 09/27/21 gabapentin 100 mg capsule 300 mg PO TID PRN PRN 03/03/21 08/12/22 insulin aspart U-100 100 unit/mL 30 unit subcut QID 03/03/21 09/27/21 (3 mL) subcutaneous pen (Novolog Flexpen U-100 Insulin aspart) dulaglutide 0.75 mg/0.5 mL 0.75 mg subcut QWEEK 03/04/21 09/27/21 subcutaneous pen injector (Trulicity) insulin detemir U-100 100 unit/mL 20 unit subcut QHS 03/04/21 09/27/21 (3 mL) subcutaneous pen (Levemir FlexTouch U-100 Insulin) acetaminophen 500 mg tablet 1,000 mg PO Q8H PRN pain #90 tabs 08/11/21 08/12/22 promethazine 12.5 mg tablet 12.5 mg PO Q6H PRN #8 tabs 08/11/21 09/27/21 levofloxacin 750 mg tablet 750 mg PO DAILY #40 tabs 09/06/21 09/27/21 albuterol 90 mcg/actuation aerosol 90 mcg inhalation 4XD 08/12/22 08/12/22 inhaler aspirin 81 mg tablet,delayed 81 mg PO 1XD 08/12/22 08/12/22 release (Juan David Low Dose Aspirin) docusate sodium 100 mg capsule 100 mg PO 1XD 08/12/22 08/12/22 dulaglutide 1.5 mg/0.5 mL 1.5 mg subcut 1XD 08/12/22 08/12/22 subcutaneous pen injector (Trulicity) fluconazole 150 mg tablet 150 mg PO 1XD 08/12/22 08/12/22 (Diflucan) levothyroxine 175 mcg tablet tab 08/12/22 08/12/22 (Synthroid) lidocaine 4 % topical patch patch topical 08/12/22 08/12/22 (Lidocaine Pain Relief) losartan 25 mg tablet tab 08/12/22 08/12/22 metoprolol succinate 25 mg tab PO 08/12/22 08/12/22 tablet,extended release 24 hr Previous Rx's Medication Instructions Recorded acetaminophen 500 mg tablet 1,000 mg PO Q8H PRN pain #90 tabs 08/11/21 promethazine 12.5 mg tablet 12.5 mg PO Q6H PRN #8 tabs 08/11/21 levofloxacin 750 mg tablet 750 mg PO DAILY #40 tabs 09/06/21 Allergies Allergy/AdvReac Type Severity Reaction Status Date / Time latex Allergy Severe Skin Rash Unverified 08/12/22 16:16 Sulfa (Sulfonamide Allergy Severe vomiting/ra Unverified 08/12/22 16:16 Antibiotics) sh/migraine amlodipine AdvReac Severe suicadal Unverified 08/12/22 16:16 thoughts fluoxetine HCl [From Prozac] AdvReac Severe anxiety/peggy Unverified 08/12/22 16:16 cidal pregabalin [From Lyrica] AdvReac Severe flatulence/ Unverified 08/12/22 16:16 suicidal sumatriptan [From Imitrex] AdvReac Severe suicidal Unverified 08/12/22 16:16 tramadol AdvReac Severe anxiety,suicidal Unverified 08/12/22 16:16 thoughts General Stated Complaint: Nk/Back Pain RICHAR: 3 Review of Systems All systems reviewed & are unremarkable except as noted in HPI and below Constitutional Constitutional: Denies body ache(s) and Denies fever(s) Cardiovascular Cardiovascular: Denies chest pain and Denies dyspnea Respiratory Respiratory: Denies cough and Denies dyspnea Gastrointestinal Gastrointestinal: Denies abdominal pain, Denies diarrhea, Reports nausea and Denies vomiting Genitourinary Genitourinary: Denies dysuria Musculoskeletal Musculoskeletal: Reports back pain and Reports radiating pain into limb PFSH All Active Problems (Updated 08/12/22 @ 18:19 by Henny León NP) Lumbar back pain with radiculopathy affecting lower extremity (Acute) Migraine (Acute) Gram-negative bacteremia (Acute) Discharge planning issues (Acute) DVT prophylaxis (Acute) CAP (community acquired pneumonia) (Acute) Hypertension (Chronic) Hypothyroidism (Chronic) Sleep apnea (Chronic) Diabetes type 2, controlled (Chronic) History of total right knee replacement (Acute 08/11/21) History of total left knee replacement (Acute) Internal derangement of left knee (Acute 05/26/16) Mucous cyst of finger (Acute 12/28/15) Surgical menopause (Acute 08/23/13) Neoplasm of unspecified behavior of bone, soft tissue, and skin (Chronic) Osteoarthritis of both knees (Acute) Seborrheic keratosis (Acute) Serrated adenoma of colon (Acute) Actinic keratosis (Acute) Fibromyalgia (Acute) BMI 45.0-49.9, adult (Acute) Venous insufficiency (Acute) Insomnia (Acute) Vitamin D deficiency (Acute) Post-traumatic osteoarthritis of right knee (Acute) Active Problem List Nausea & vomiting (Acute) Transaminitis (Acute) Discharge planning issues (Acute) DVT prophylaxis (Acute) CAP (community acquired pneumonia) (Acute) Hypertension (Chronic) Hypothyroidism (Chronic) Sleep apnea (Chronic) Diabetes type 2, controlled (Chronic) History of total right knee replacement (Acute 08/11/21) History of total left knee replacement (Acute) Internal derangement of left knee (Acute 05/26/16) Mucous cyst of finger (Acute 12/28/15) Surgical menopause (Acute 08/23/13) Neoplasm of unspecified behavior of bone, soft tissue, and skin (Chronic) Osteoarthritis of both knees (Acute) Seborrheic keratosis (Acute) Serrated adenoma of colon (Acute) Actinic keratosis (Acute) Fibromyalgia (Acute) BMI 45.0-49.9, adult (Acute) Venous insufficiency (Acute) Insomnia (Acute) Vitamin D deficiency (Acute) Post-traumatic osteoarthritis of right knee (Acute) Medical History Asthma Back pain Depression Diarrhea Ganglion cyst of wrist GERD (gastroesophageal reflux disease) pt. denies Hiatal hernia Hx of ovarian cyst Hx of traumatic brain injury Hyperlipidemia Migraine Morbid obesity with BMI of 50.0-59.9, adult Peripheral neuropathy Risk for falls Urinary incontinence Surgical History ganglion cyst excision History of colonoscopy History of gastric bypass Hx of bilateral oophorectomy Hx of cholecystectomy Hx of knee surgery R knee fracture, remove hardware Social History Smoking/Tobacco Use Status: Never Smoking risk assessment performed?: Yes Alcohol Intake: current Alcohol Intake frequency: holidays/special occasions only Drug use: Never Substance use type: does not use Current gender identity: female Do you feel safe at home: Yes Do you feel safe in your relationship?: Yes Exam Narrative Exam Narrative: Constitutional: Alert and oriented x3. Appears stated age. Obese body habitus. Head: Normocephalic, no trauma. Eyes: Pupils PERRL, Red reflex noted, EOM's intact. Eyelids symmetrical without lesions, discharge, or swelling. ENT: Bilateral TM's WNL, External ear normal to inspection, no mastoid TTP, swelling, or erythema, Nasal turbinates WNL, no nasal discharge. Normal dentition, Posterior pharynx WNL, no exudate. Chest: RRR, Normal S1, S2, distal pulses intact. Resp: Lungs clear to auscultation bilaterally, no wheezes, rales, or rhonchi. Abdomen: Soft, non-distended, Normoactive bowel sounds all 4 quads. Musculoskeletal: Unable to assess gait. Complaining of burning shooting type sensations to her bilateral legs worse on the left she does have sensation intact bilaterally. Skin: No suspicious rashes or lesions. Capillary refill less than 2 sec. Neurologic: Cranial nerves II-XII intact. Alert and oriented x 3. Motor: No deficits noted. Sensory: Intact bilaterally all 4 extremities. Reflexes: DTR's intact bilaterally. Intact dorsiflexion and pedal flexion. Hematologic/Lymphatic: No ecchymosis, no lymphadenopathy. Course Vital Signs Vital signs: Vital Signs Temperature 36.8 C 08/12/22 15:58 Pulse 79 08/12/22 15:58 Respiratory Rate 20 08/12/22 15:58 Blood Pressure 150/83 H 08/12/22 15:58 Pulse Oximetry 95 08/12/22 15:58 Temperature 36.8 C 08/12/22 15:58 Pulse 79 08/12/22 15:58 Respiratory Rate 20 08/12/22 15:58 Respiratory Effort Non-Labored 08/12/22 16:06 Blood Pressure 150/83 H 08/12/22 15:58 Blood Pressure Position Sitting 08/12/22 15:58 Pulse Oximetry 95 08/12/22 15:58 Oxygen Delivery Method Room Air 08/12/22 15:58 Oxygen Flow Rate 0 08/12/22 15:58 Pain Level 10 08/12/22 15:58
[2022-08-12] MEDS: Ondansetron 4 MG/2 ML VIAL IVP (17:09)
[2022-08-12] MEDS: MORPHine 4 MG/ML SYR IVP (17:10)
[2022-08-12 17:13] LABS: Abs Immature Grans 0.02 10^3/uL (0.0-0.06); Absolute Basophil Count 0.03 10^3/uL (0.0-0.2); Absolute Eosinophil Count 0.07 10^3/uL (0.0-0.7); Absolute Lymphocyte Count 1.49 10^3/uL (1.2-3.4); Absolute Monocyte Count 0.34 10^3/uL (0.1-0.8); Absolute Neutrophil Count 6.84 10^3/uL (1.2-6.7); Basophils % 0.3; Eosinophils % 0.8; HCT 50.2 % (36.0-46.0); HGB 16.9 g/dL (11.2-15.7); Immature Grans % 0.2; MCH 28.6 pg (27.0-33.0); MCHC 33.7 % (32.0-36.0); MCV 85 fL (80-95); MPV 10.9 fL (8.0-11.0); Monocytes % 3.9; Neutrophils % 77.8; Platelet Count 242 10^3/uL (130-400); RBC 5.91 10^6/uL (3.93-5.22); RDW 12.7 % (11.7-14.6); RDW-SD 39.1 fL; WBC 8.79 10^3/uL (4.4-10.8)
[2022-08-12 17:28] LABS: ALT 63 U/L (14-59); AST 30 U/L (15-37); Albumin 4.7 g/dL (3.4-5.0); Alkaline Phosphatase 151 U/L (46-116); Anion Gap 7.3 mmol/L (3-11); BUN 24 mg/dL (7-18); Bilirubin, Total 1.3 mg/dL (0.2-1.0); CO2 29.7 mmol/L (21.0-32.0); CREATININE 0.7 mg/dL (0.55-1.02); Calcium 11.5 mg/dL (8.5-10.1); Chloride 103 mmol/L (98-107); Estimated GFR 100.19 (mL/min/1.73m2); Glucose 104 mg/dL (74-106); Potassium 3.8 mmol/L (3.5-5.1); Sodium 140 mmol/L (136-145); Total Protein 8.4 g/dL (6.4-8.2)
[2022-08-12 17:31] LABS: Bilirubin Negative (Negative); Blood Negative (Negative); Clarity Sl Cloudy (Clear); Glucose Negative (Negative); Ketones Negative (Negative); Leukocyte Esterase Negative (Negative); Nitrite Negative (Negative); Specific Gravity 1.025 (1.005-1.025); Urobilinogen 0.2 EU/dL (Up TO 0.2); pH 6.5 (5-8)
--- NOTE | 2022-08-12 17:47 | DI.VRAD_ITS ---
PROCEDURE INFORMATION: Exam: XR Lumbosacral Spine Exam date and time: 08/12/2022 4:41 PM Age: 57 years old Clinical indication: Low back pain and other: Muscle spasms. TECHNIQUE: Imaging protocol: Radiologic exam of the lumbosacral spine. Views: 4 or 5 views. COMPARISON: CT ABDOMEN PELVIS W 09/02/2021 11:48 AM FINDINGS: Bones/joints: The bones are demineralized. Advanced degenerative arthritis in the lumbar facets. Endplate osteophyte formation lower thoracic and upper lumbar spine. Degenerative arthritis in the sacroiliac joints. Slight lumbar curve, convex to the left. Soft tissues: Unremarkable. IMPRESSION: No acute findings. Degenerative arthritis in the lumbar spine Dictated and Authenticated by: Sabiha Euceda MD. Ordering:SB Inman MD
[2022-08-12] MEDS: Normal Saline 1,000 ML 1000 ML IV (17:55)
== END 2022-08-12 19:30 | disposition home or self-care (01) ==
PROVIDERS: Emergency Provider Registered Nurse Emergency; PCP Family Medicine
DX: M54.16 Radiculopathy, lumbar region (principal); E11.42 Type 2 diabetes mellitus with diabetic polyneuropathy; I10 Essential (primary) hypertension
CPT/HCPCS: 80053; 96361; 96374; 96375; 99284; 72110; 81003; 85025; J2270; J2405

== ENCOUNTER 2022-09-09 15:35 | Outpatient (REF) | payer MEDICARE, MEDICAID, SELFPAY ==
[2022-09-09 18:46] LABS: ALT 65 U/L (14-59); AST 34 U/L (15-37); Albumin 4.1 g/dL (3.4-5.0); Alkaline Phosphatase 135 U/L (46-116); Anion Gap 7.9 mmol/L (3-11); BUN 20 mg/dL (7-18); Bilirubin, Total 0.9 mg/dL (0.2-1.0); CO2 28.1 mmol/L (21.0-32.0); CREATININE 0.5 mg/dL (0.55-1.02); Calcium 10.5 mg/dL (8.5-10.1); Chloride 104 mmol/L (98-107); Estimated GFR 108.65 (mL/min/1.73m2); Glucose 85 mg/dL (74-106); Potassium 3.8 mmol/L (3.5-5.1); Sodium 140 mmol/L (136-145); TSH (W/Ref FT4) 0.05 uIU/mL (0.36-3.74); Total Protein 6.8 g/dL (6.4-8.2)
[2022-09-09 19:08] LABS: FREE T4 1.43 ng/dL (0.76-1.46)
[2022-09-09 20:05] LABS: Vitamin D 25 Total 17.6 ng/mL (30-100)
[2022-09-12 09:14] LABS: Parathyroid Hormone,Intact 120 pg/mL (19-88)
[2022-09-12 14:12] LABS: Albumin 60.1 % (55.8-66.1); Albumin g/dL 3.8 g/dL (3.6-5.2); Total Protein 6.4 g/dL (6.3-8.2)
== END 2022-09-09 15:36 | disposition home or self-care (01) ==
LOC: NCHCN 15:35
PROVIDERS: PCP Family Medicine; Visit Provider Family Medicine
DX: E03.9 Hypothyroidism, unspecified (principal); E83.52 Hypercalcemia; M54.59 Other low back pain
CPT/HCPCS: 80053; 82306; 83970; 84165; 84439; 84443

== ENCOUNTER → 2022-09-16 12:22 | Outpatient (CLI) | payer MEDICARE, MEDICAID, SELFPAY ==
--- NOTE | 2022-09-16 | DI.MRI_ITS ---
Exam(s) MR LUMBAR SPINE WO EXAM: MR LUMBAR SPINE WO CLINICAL HISTORY: LOW BACK PAIN M54.50 ACUTE NEW LUMBAR PAIN HYPERCALCEMIA, NEUROPATHY,. TECHNIQUE: Multiplanar multisequence MRI of the Lumbar spine was performed. COMPARISON: CT CT ABDOMEN PELVIS W from 09/02/2021 CR,XR XR LUMBAR SPINE COMPLETE from 08/12/2022 FINDINGS: Bones: The last intervertebral disc space is designated the L5/S1 level for the numbering purpose of this examination. The vertebral body heights are well maintained. Alignment is satisfactory. The ma rrow signal characteristics are unremarkable. Cord: The conus tip ends at the T12 level. It is of normal size and signal intensity. T12-L1: Mild disc bulging. No central spinal canal or neural foraminal stenosis. L1-2: No disc herniations or bulges are present. No central spinal canal or neural foraminal stenosis . Mild facet degenerative changes. L2-3: No disc herniations or bulges are present. No central spinal canal or neural foraminal stenosis .Mild facet degenerative changes. L3-4: No disc herniations or bulges are present. There are prominent facet joint degenerative change s which cause [id number] bilateral neural foraminal narrowing as well as [id number] centr al canal stenosis. L4-5: No disc herniations or bulges are present. No central spinal canal stenosis.Prominent facet deg enerative changes cause [id number] left neural foraminal narrowing.. L5-S1: No disc herniations or bulges are present. Mild bilateral neural foraminal narrowing. No harley tral spinal canal stenosis.Facet degenerative changes. The visualized SI joints and sacrum are well maintained. Soft tissues: The paraspinal soft tissues are unremarkable. IMPRESSION: [id number] bilateral neural foraminal narrowing at L 3 4 and [id number] central canal dannielle nosis secondary to prominent facet degenerative changes. Prominent facet degenerative changes also c ause left neural foraminal narrowing at L4-5. Mild bilateral neural foraminal narrowing at L5-S1. DATA REPOSITORY:
--- OUTSIDE RECORDS SUMMARY | 2022-09-16 12:28 | XMS_ITS | Encounter Summary ---
:1965 Author Organization [facility] [place] [address] Care Team Providers Name Role Phone Zhanna Francois APRN Primary Care Provider Encounter Details Date Type Department Care Team Description 01/04/2017 Telephone General Surgery at [facility] [place] [address] Social History Tobacco Use Types Packs/Day Years Used Date Smoking Tobacco: Never Smokeless Tobacco: Never Alcohol Use Standard Drinks/Week Comments No 0 (1 standard drink = 0.6 oz pure alcoho l) Sex Assigned at Date Recorded Not on file documented as of this encounter Miscellaneous Notes Telephone Encounter - Anaid Crook - 01/04/2017 1:07 PM EDT LMOM for Ruth Perez to let her know that I am just going to schedule her 8 Month follow up visit since there is very little scheduling flexibility at that time. I told her that she is welcome to give sharif call and we can try to change the appointment if need be. documented in this encounter Plan of Treatment Not on filedocumented as of this encounter Visit Diagnoses Not on filedocumented in this encounter Care Teams Guidance Director Relationship Specialty Start Date End Date Zhanna Francois APRN PCP - General 01/27/15 05/15/19 documented as of this encounter
--- OUTSIDE RECORDS SUMMARY | 2022-09-16 12:28 | XMS_ITS | Encounter Summary ---
:1965 Author Organization [facility] [place] [address] Care Team Providers Name Role Phone Zhanna Francois APRN Primary Care Provider Encounter Details Date Type Department Care Team Description 01/05/2017 Orders Only [place] [facility] Busby APRN Elevated LFTs [facility] [place] [address] [place], [place] [id number] [phone] (Wo rk) Social History Tobacco Use Types Packs/Day Years Used Date Smoking Tobacco: Never Smokeless Tobacco: Never Alcohol Use Standard Drinks/Week Comments No 0 (1 standard drink = 0.6 oz pure alcoho l) Sex Assigned at Date Recorded Not on file documented as of this encounter Plan of Treatment Not on filedocumented as of this encounter Visit Diagnoses Diagnosis Elevated LFTs Other abnormal blood chemistry documented in this encounter Care Teams Air Analysis Technician Relationship Specialty Start Date End Date Zhanna Francois APRN PCP - General 01/27/15 05/15/19 documented as of this encounter
--- OUTSIDE RECORDS SUMMARY | 2022-09-16 12:28 | XMS_ITS | Encounter Summary ---
:1965 Author Organization [facility] Address [address] [place] [address] Care Team Providers Name Role Phone FrancoisZhanna Jhonny MOLINA Primary Care Provider Reason for Visit Reason Comments Diabetes Encounter Details Date Type Department Care Team Description 01/04/2017 Office Visit Endocrinology at [facility] Lluvia Vargas, [facility] [place] [address] [facility] [phone] ENDOCRINOLOGY DEPT. [place], [place] [address] Social History Tobacco Use Types Packs/Day Years Used Date Smoking Tobacco: Never Smokeless Tobacco: Never Alcohol Use Standard Drinks/Week Comments No 0 (1 standard drink = 0.6 oz pure alcoho l) Sex Assigned at Date Recorded Not on file documented as of this encounter Patient Instructions Patient InstructionsLluvia Vargas APRN - 01/04/2017 10:30 AM EDT Ok to increase novolog by 3 to 5 units to get glucose under 150 before meals documented in this encounter Progress Notes Lluvia Vargas APRN - 01/04/2017 10:30 AM EDT REASON FOR VISIT: Followup type 2 DM now in poor control. Also, hypothyroidism related to Graves disease, had ablation. Also morbid obesity, sleep apnea. BRIEF HISTORY: Presents and states she is feeling great, enjoys swimming for 2 hours twice a week. States glucose levels have been a little bit higher. SBGM: Three times a day. DIABETES REGIMEN: NovoLog FlexPen 20 units 3 times a day. 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 REVIEW OF SYSTEMS: Depression and mood: Is doing very well, happy to be able to be driving again. Her teenagers are doing well. Oldest will be graduating from high school this year. Eyes: No recent vision changes. Takes a beta-ac to prevent headaches. No recent chest pain or shortness of breath. No recent GI symptoms. Sleep pattern: Uses BiPAP apparatus. Extremities: Knee pains, hip pains, has feet numbness, takes gabapentin as needed. PHYSICAL EXAM: Appearance: She is obese with a larger central girth. Weight 281 pounds. She has lost 15 pounds since previous office visit. Blood pressure 135/62. Pleasant and talkative with good eye contact. Eyes: No retinopathy with green light exam. Neck: No thyromegaly or lymphadenopathy. Heart: Regular rate, rhythm. Lungs are clear to auscultation. Feet: Skin is normal. Pulses are normal. Neuro: Decreased sensation to 10 g of pressure. Hemoglobin A1c 8.7%, previous was 7.7%. SBGM: Three times a day. She states fasting glucose levels are usually at target, does not need a basal insulin at this point. Advised okay to increase the NovoLog doses 3-5 units to get glucose levels closer to 130 before meals as much as possible. This was a 30-minute office visit with 29 minutes spent counseling face to face with patient in the management of glucose levels, gave her a copy of her lab results. TSH was borderline high at 4. Will recheck that at next office visit. Patient is doing an excellent job status post gastric bypass surgery. Recent Results (from the past 72 hour(s)) Hemoglobin A1c Result Value Ref Range Hemoglobin A1C 8.7 (H) 4.3 - 5.6 % Est Avg Gluc 203 mg/dL TSH Result Value Ref Range TSH 4.33 (H) 0.27 - 4.20 mcIU/mL Comprehensive metabolic panel (non-fasting) Result Value Ref Range Glucose Lvl 102 65 - 199 mg/dL BUN 15 8 - 18 mg/dL Creatinine 0.65 (L) 0.70 - 1.20 mg/dL Sodium 143 135 - 145 mmol/L Potassium 3.6 3.5 - 5.0 mmol/L Chloride 104 98 - 107 mmol/L CO2 26 22 - 31 mmol/L Anion Gap 13 5 - 15 mmol/L Calcium 10.1 8.5 - 10.5 mg/dL Total Protein 6.8 6.1 - 8.0 gm/dL Albumin 4.2 3.2 - 5.2 gm/dL AST 23 0 - 30 unit/L ALT 35 (H) 0 - 30 unit/L Alk Phos 131 (H) 40 - 104 unit/L Total Bilirubin 1.0 0.2 - 1.3 mg/dL Bili, Direct 0.2 0.0 - 0.3 mg/dL Estimated GFR >60 >=60 Iron and TIBC Result Value Ref Range Iron 76 30 - 150 mcg/dL TIBC 339 250 - 450 mcg/dL Iron Saturation 22 20 - 50 % PTH Result Value Ref Range PTH 81 (H) 15 - 65 pg/mL Vitamin D, 25-Hydroxy Result Value Ref Range 25-OH Vit D Total 36 30 - 100 ng/mL Hemogram Result Value Ref Range WBC 8.1 4.0 - 9.5 x10(3)/mcL RBC 5.28 (H) 4.00 - 5.21 x10(6)/mcL Hemoglobin 15.3 11.7 - 15.5 gm/dL Hematocrit 44.5 35.7 - 45.8 % MCV 84.3 82.6 - 94.4 fL MCH 29.0 27.1 - 32.0 pg MCHC 34.4 31.7 - 35.0 gm/dL Platelets 215 145 - 357 x10(3)/mcL RDWSD 41.1 37.0 - 46.0 fL RDWCV 13.4 11.5 - 14.1 % MPV 11.4 7.6 - 12.9 fL nRBC % Auto 0.0 % nRBC Abs Auto 0.000 0.000 - 0.000 x10(3)/mcL Differential, Automated Result Value Ref Range Neutrophils % 61.5 % Neutr Abs (ANC) 4.98 1.70 - 6.10 x10(3)/mcL Lymphocytes % 29.5 % Lymphocytes Abs 2.4 0.9 - 3.2 x10(3)/mcL Monocytes % 6.0 % Monocyte Abs 0.5 0.3 - 0.9 x10(3)/mcL Eosinophils % 2.0 % Eosinophils Abs 0.2 0.0 - 0.4 x10(3)/mcL Basophils % 0.6 % Basophils Abs 0.0 0.0 - 0.1 x10(3)/mcL Immature Gran % 0.40 % Betzaida Gran Abs 0.03 0.00 - 0.04 x10(3)/mcL documented in this encounter Plan of Treatment Not on filedocumented as of this encounter Visit Diagnoses Diagnosis Type 2 diabetes, uncontrolled, with neur opathy Type II or unspecified type diabetes eriberto litus with neurological manifestations, uncontrolled documented in this encounter Care Teams Case Investigator Relationship Specialty Start Date End Date Zhanna Francois APRN PCP - General 01/27/15 05/15/19 documented as of this encounter
--- OUTSIDE RECORDS SUMMARY | 2022-09-16 12:28 | XMS_ITS | Clinical Summary ---
:1965 Author Organization [facility] [place] [address] Care Team Providers Name Role Phone Jonathan Smith MD Primary Care Provider Allergies Active Allergy Reactions Severity Noted Date Comments Amlodipine Other (See Comments) 01/13/2012 Suicida l thoughts Sumatriptan Succinate 01/13/2012 Suicid al thoughts Latex Rash 01/13/2012 Pregabalin Other (See Comments) 01/13/2012 Intoler ance Metformin Diarrhea 01/13/2012 Fluoxetine Anxiety 01/13/2012 Sulfa (Sulfonamide Antibiotics) Tramadol Anxiety 01/13/2012 Medications Medication Sig Dispensed Refills Start Date End Date Status atenolol (TENORMIN) 50 75MG = 1 10/17 0 04/24/2007 Active mg tablet Tablet(s), PO, Once daily Budesonide-Formoterol Inhale into the 0 Active (SYMBICORT) 160-4.5 lungs as needed. mcg/Actuation HFAA Reported on 10/05/2016 cetirizine (ZYRTEC) 10 Take 10 mg by 0 Active mg tablet mouth daily as needed. Reported on 10/05/2016 lidocaine (LIDODERM) 5 Place 3 patches 0 Active %(700 mg/patch) onto the skin every 12 hours. Reported on 10/05/2016 levothyroxine Take 200 mcg by 0 Active (SYNTHROID) 200 mcg mouth daily. tablet rosuvastatin (CRESTOR) Take 20 mg by 0 Active 20 mg tablet mouth daily. Reported on 10/05/2016 gabapentin (NEURONTIN) TAKE ONE CAPSULE 90 capsule 3 6 Active 100 mg Capsule BY MOUTH THREE TIMES A DAY nystatin (MYCOSTATIN) Apply topically 4 15 g 5 01/04/2017 Active PowderIndications: times daily. Catherine infection of flexural skin Additional Information Patient taking differently: Topical (Top) PRN, Reported on 09/18/2019 VITAMIN D 1,000 unit Tablet TAKE ONE TABLET BY MOUTH 3 07/09/2016 Active EVERY DAY clotrimazole (LOTRIMIN) 1 % APPLY TWO TIMES A DAY TO 1 10/01/2016 Active Cream AFFECTED AREA DIRECTED insulin aspart (NOVOLOG Inject 30 Units 45 mL 11 08/04/2017 Active FLEXPEN) Insulin Pen subcutaneously 5 times daily. multivitamin (THERAGRAN) Take 2 tablets by mouth 0 Active Tablet daily. acetaminophen (TYLENOL) 650 Take 1,300 mg by mouth every 0 Active mg Tablet Sustained Release 8 hours as needed for Pain. Do not exceed 6 tabs in 24 hours naproxen sodium (ANAPROX) Take 440 mg by mouth daily. 0 Active 220 mg Tablet TURMERIC ORAL Take by mouth daily. 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 PSG done in [place] at wt 252# on 08/18 : moderate AJITH; AHI 18/hr B. Tried CPAP for a few years but stoppe d in 2006. She underwent a consultation at [facility] ion 06/16/10 and had a subsequent titration PSG at [facility] on 07/19/10 that showed resolution of AJITH at CPAP 13 using full face mask. She was last seen at [facility] by Dr. Sarmad Bolden on 09/07/2010. C. She presented to [facility] for re-ev aluation on 12/03/15. Repeat titration recommended. D. PSG 04/21/16 at wt 329#: showed optimal pressure at BIPAP 18/14 cm; supine REM sleep; arousal index 3/hr; PLM arousal 0.6/hr E. Compliance Summary 05/17/16-06/15/16: --average usage: 6 hours --% days with usage> 4 hrs: 83% --average AHI: 1.0/hr Preoperative Class IV obesity with BMI of 50.0-59.9, a dult 01/24/2012 Overview: Bariatric Surgery Program 1. Attended Introduction to the [facility] [place] seminar, a comprehensive two hour meeting that provides a program overview, education on bariatric surgeries offered at [facility], risks and be nefits, as well as patient expectations and follow up: 04/20/12, 04/19/13, 07/19/13, 02/13/15, 06/17/16 [facility] Educational seminars viewed: 3 Grades on post-testin% x 3 The [facility] Educational Handbook is provided at preoperative visit #1. 2. Pre-operative programmatic evaluation s required: PCP evaluation and letter of support to proceed with surgery, [facility]SP labwork (can be done on day of visit #1) and psychological evaluation- minimum of 2 visits. 3. Bariatric Surgery Program evaluations with RD and SHOVEL HANDLE ASSEMBLER: Not scheduled 4. Weight history: 252# on 09/14/05; 279 # on 09/15/06; 322# on 01/23/12; 333.8# on 05/05/15; 319.4# on 03/29/16; 328# on 06/15/16 5. Gallbladder status: 6. Insurer specific requirements: 3 cons ecutive months dietary counseling 7. BSP Team meeting discussion: Patient insight into causes of obesity: onset of obesity at age 5. Attributes weight gain to inactivity and over consumption. Reports gaining 100# as a result of staying at home for 18 months after a brain injury. Diabetes mellitus 01/24/2012 Overview: Insulin requiring Fibromyalgia 01/24/2012 Paratubal cyst 01/24/2012 Immunizations Name Administration Dates Next Due Influenza PF, Split 09/05/2016 Family History Medical History Relation Comments Diabetes Brother Cerebrovascular Accident Neg Hx Kidney Cancer Neg Hx Thrombosis Neg Hx Relation Status Comments Brother Social History Tobacco Use Types Packs/Day Years Used Date Smoking Tobacco: Never Smokeless Tobacco: Never Alcohol Use Standard Drinks/Week Comments Not Currently 0 (1 standard drink = 0.6 oz pure alcoho l) Sex Assigned at Date Recorded Not on file Last Filed Vital Signs Vital Sign Reading Time Taken Comments Blood Pressure 119/50 09/18/2019 3:46 PM EST Pulse 64 09/18/2019 3:46 PM EST Temperature 37.2 ??C (98.9 ??F) 09/18/2019 3:46 PM EST Respiratory Rate 16 09/15/2016 4:26 PM EST Oxygen Saturation 96% 09/18/2019 3:46 PM EST Inhaled Oxygen Concentration - - Weight 127.5 kg (281 lb) 09/18/2019 3:46 PM EST Height 160 cm (5' 3) 09/18/2019 3:46 PM EST Body Mass Index 49.78 09/18/2019 3:46 PM EST Plan of Treatment Health Maintenance Due Date Last Done Comments Hepatitis B vaccine (0-59 yrs) (1 1965 of 3 - 3-dose series) Covid-19 Vaccine (#1) 1965 Pneumococcal Vaccine: At-Risk 01/26/1970 5-64yrs (1 - PCV) DM Opthalmology Exam 01/26/1974 DM Urine Microalbumin yearly 01/26/1974 HIV screen 01/26/1982 Hepatitis C Screening 01/26/1982 Tdap adult 01/26/1983 Tetanus vaccine 01/26/1983 HPV test 01/26/1994 PAP Smear 01/26/1994 Breast Cancer Share Decision 2004 Needed Breast Cancer screening 01/26/2014 Zoster vaccine (1 of 2) 01/26/2014 DM Hemoglobin A1c 04/06/2017 01/04/2017, 07/22/2016, 04/28/2015, Additional history exists DM Creatinine yearly 01/04/2018 01/04/2017, 09/15/2016, 09/13/2016, Additional history exists Influenza (Flu) vaccine (1 of 1 - 06/16/2022 09/05/2016 Influenza standard series) Colonoscopy 04/09/2025 04/09/2015, 04/09/2015, 04/09/2015 Medical Devices Implanted Type Area Pen Tender Device Shelf Model / Identifier Expiration Serial / Lot Date Rob Gomez [employer], Stpl ([id number]) - [id number] IMPLANTS DO NOT USE WL 06/15/2019 [id number] / Implanted: Qty: 6 on 09/12/2016 by Thanh Meraz MD at [facility] - [id number] Insurance Payer Benefit Plan / Subscriber ID Effective Dates Phone Addre ss Type Group MEDICARE MEDICARE PART [id number] 2013-Prese [phone] [address] [place] [address] [place] [id number] 2019-Prese [phone] [address] [place] [address] Advance Directives Documents on File Type Date Recorded Patient Programs Assistant Explanati on Advance Directives and Living 09/07/2016 7:43 AM 08/21/2016 Will Latest Code Status on File Code Status Date Activated Date Inactivated Comments Full Code 09/12/2016 9:59 AM 09/15/2016 9:35 PM Question Answer Comments Does patient have capacity to make decision: Yes Code Status History Code Status Date Activated Date Inactivated Comments Full Code 01/23/2012 10:23 AM 01/24/2012 2:08 PM Full Code 01/23/2012 7:12 AM 01/23/2012 10:23 AM Question Answer Comments Order Status: Initial Order Does patient have decision making Yes, Order is based on Pat ients capacity? wishes. Care Teams Sports Betting Manager Relationship Specialty Start Date End Date Jonathan Smith MD PCP - General Family Medicine 07/16/19 [place] [id number]
--- OUTSIDE RECORDS SUMMARY | 2022-09-16 12:28 | XMS_ITS | Encounter Summary ---
:1965 Author Organization [facility] [place] [address] Care Team Providers Name Role Phone Zhanna Francois APRN Primary Care Provider Reason for Visit Reason Onset Date Comments Medication Refill 08/03/2017 Encounter Details Date Type Department Care Team Description 08/03/2017 Refill Endocrinology at [facility] Lluvia Rios REPAIRER GENERAL [facility] [place] [address] ENDOCRINOLOGY DEPT. [phone] [place], [place] [address] (Wo rk) Social History Tobacco Use Types [...] on filedocumented in this encounter Care Teams Casing Wringer Operator Relationship Specialty Start Date End Date Zhanna Francois APRN PCP - General 01/27/15 05/15/19 documented as of this encounter
--- OUTSIDE RECORDS SUMMARY | 2022-09-16 12:28 | XMS_ITS | Encounter Summary ---
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 HEMOGRAM Routine 01/04/2017 10:14 S/P gastric byp ass Results for this AM EDT Controlled type 2 procedure are in diabetes mellitus the result s without complication, sectio n. unspecified correction insulin use status DIFFERENTIAL, Routine 01/04/2017 10:14 S/P gastric byp ass Results for this AUTOMATED AM EDT Controlled type 2 procedure are in diabetes mellitus the result s without complication, sectio n. unspecified correction insulin use status VITAMIN B1, WHOLE Routine 01/04/2017 10:14 S/P gastric bypass Results for this BLOOD AM EDT procedure are i n the results section. IRON AND TIBC Routine 01/04/2017 10:14 S/P gastric byp ass Results for this AM EDT Controlled type 2 procedure are in diabetes mellitus the result s without complication, sectio n. 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 CBC (WITH DIFF) Routine 01/04/2017 10:14 S/P gastric byp ass AM EDT Controlled type 2 diabetes mellitus without complication, unspecified correction insulin use status PREALBUMIN Routine 01/04/2017 10:14 S/P gastric bypass Resul ts for this AM EDT procedure are i n the results section. FOLATE, SERUM Routine 01/04/2017 10:14 S/P gastric bypass Resu lts for this AM EDT procedure are i n the results section. FERRITIN Routine 01/04/2017 10:14 S/P gastric byp ass Results for this AM EDT Controlled type 2 procedure are in diabetes mellitus the result s without complication, sectio n. 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 COMPREHENSIVE Routine 01/04/2017 10:14 S/P gastric byp ass Results for this METABOLIC PANEL AM EDT Controlled type 2 procedu re are in (NON-FASTING) diabetes mellitus the resul ts without complication, sectio n. 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 HEMOGLOBIN A1C Routine 01/04/2017 8:44 Type 2 diabetes Results for this AM EDT mellitus without procedure a re in complication, with the resul ts long-term current use sectio n. of insulin documented in this encounter Results Differential, Automated (01/04/2017 10:14 AM EDT) P athologist Signature Neutrophils % 61.5 % [facility] Neutr Abs (ANC) 4.98 1.70 - [facility] 6.10 [facility] x10(3)/[facility] LABORATORY Lymphocytes % 29.5 % [facility] Lymphocytes Abs 2.4 0.9 - 3.2 [facility] x10(3)/[facility] LABORATORY Monocytes % 6.0 % [facility] Monocyte Abs 0.5 0.3 - 0.9 [facility] x10(3)/[facility] LABORATORY Eosinophils % 2.0 % [facility] Eosinophils Abs 0.2 0.0 - 0.4 [facility] x10(3)/[facility] LABORATORY Basophils % 0.6 % [facility] Basophils Abs 0.0 0.0 - 0.1 [facility] x10(3)/[facility] LABORATORY Immature Gran % 0.40 % [facility] Comment: Immature granulocytes(IG's)percentage an d absolute count will include metamyelocytes, myelocytes, and promyelo cytes. Blood smears from CBCs yielding IG's will be scanned manually for concor dance. If this scan disagrees with the automated IG or if promyelocytes are not ed, a manual differential will be performed. Betzaida Gran Abs 0.03 0.00 - 0.04 x10(3)/[facility] Specimen Anatomical Collection Method Collection Time Receive d Time (Source) Location / / Volume Laterality Blood specimen 01/04/2017 10:14 7 (specimen) AM EDT 10:22 AM EDT Resulting Agency Comment Spec In Lab Thanh Meraz MD HEMATOLOGY ORDERABLES Performing Organization Address City/State/[place] [address] (ABNORMAL) Hemogram (01/04/2017 10:14 AM EDT) Analysis Performed At Patho logist Time Signature WBC 8.1 4.0 - 9.5 [facility] x10(3)/[facility] LABORATORY RBC 5.28 (H) 4.00 - [facility] 5.21 [facility] x10(6)/[facility] LABORATORY Hemoglobin 15.3 11.7 - [place] 15.5 gm/dL [facility] Hematocrit 44.5 35.7 - [place] 45.8 % [facility] LABOR[facility]ORY MCV 84.3 82.6 - [place] 94.4 [facility] LABORATORY MCH 29.0 27.1 - [place] 32.0 pg [facility] LABORATORY MCHC 34.4 31.7 - [place] 35.0 gm/dL [facility]ORY Platelets 215 145 - 357 [place] IRIZARRYCHRISTINA x10(3)/[facility] LABORATORY RDWSD 41.1 37.0 - [place] 46.0 [facility] LABORATORY RDWCV 13.4 11.5 - [place] 14.1 % [facility]ORY MPV 11.4 7.6 - 12.9 [place] [facility] LABORATORY nRBC % Auto 0.0 % [facility] nRBC Abs Auto 0.000 0.000 - [place] 0.000 [facility] x10(3)/[facility] LABORATORY Specimen Anatomical Collection Method Collection Time Receive d Time (Source) Location / / Volume Laterality Blood specimen 01/04/2017 10:14 7 (specimen) AM EDT 10:22 AM EDT Resulting Agency Comment Spec In Lab Thanh Meraz MD HEMATOLOGY ORDERABLES Performing Organization Address City/State/ZIP Code Phon e Number [address] Folate, serum (01/04/2017 10:14 AM EDT) athologist Signature Folate Lvl 16.8 4.8 - 24.2 [place] ng/mL [facility]OR[facility]ORY Specimen Anatomical Collection Method Collection Time Receive d Time (Source) Location / / Volume Laterality Blood specimen 01/04/2017 10:14 7 (specimen) AM EDT 10:22 AM EDT Resulting Agency Comment Spec In Lab Thanh Meraz MD CHEMISTRY ORDERABLES Performing Organization Address City/State/ZIP Code Phon e Number [address] Vitamin B12 (01/04/2017 10:14 AM EDT) athologist Signature Vitamin B-12 557 633 - 426 [place] pg/mL [facility] Specimen Anatomical Collection Method Collection Time Receive d Time (Source) Location / / Volume Laterality Blood specimen 01/04/2017 10:14 7 (specimen) AM EDT 10:22 AM EDT Resulting Agency Comment Spec In Lab Thanh Meraz MD CHEMISTRY ORDERABLES Performing Organization Address City/[facility]/[place] [address] (ABNORMAL) Vitamin B1, whole blood (01/04/2017 10:14 AM EDT) P athologist Signature Vit B1 Lvl WB 194 (H) 70 - 180 [facility] CHRISTINA nmol/L [facility] Comment: ADDITIONAL INFORMATIO N This test was developed and its performa nce characteristics determined by [facility] in a manner co nsistent with CLIA requirements. This test has not been nathaniel ared or approved by the U.S. Food and Drug Administration. Test Performed by: [place] [address] Specimen Anatomical Collection Method Collection Time Receive d Time (Source) Location / / Volume Laterality Blood specimen 01/04/2017 10:14 7 (specimen) AM EDT 10:57 AM EDT Resulting Agency Comment Spec In Lab Thanh Meraz MD CHEMISTRY ORDERABLES Performing Organization Address City/[facility]/[place] [address] Vitamin D, 25-Hydroxy (01/04/2017 10:14 AM EDT) P athologist Signature 25-OH Vit D 36 30 - 100 J[place]N [place]QUE[place] Total ng/mL [facility] Comment: Deficient <10 ng/mL Insufficient 10 to 29 ng/mL Sufficient 30 to 100 ng/mL Potential Intoxication >100 ng/mL According to the [place] National Osteoporosi s Foundation, Vitamin D concentrations >30 ng/mL are sufficient to protect bone health. ??The National Kidney Foundation has similarly stated that pat ients with Vitamin D concentrations <30ng/mL should be considered to be insu fficient or deficient. http://[employer]./[facility]natlkidneyfoundat ion http://[employer]/[facility]VitD The [employer] Vitamin D Immunoassay detec ts both 25-OH Vitamin D2 and 25-OH Vitamin D3, but only a total Vitamin D c oncentration is reported. Specimen Anatomical Collection Method Collection Time Receive d Time (Source) Location / / Volume Laterality Blood specimen 01/04/2017 10:14 7 (specimen) AM EDT 12:29 PM EDT Resulting Agency Comment Spec In Lab Thanh Meraz MD CHEMISTRY ORDERABLES Performing Organization Address City/[facility]/ZIP [facility] [place] [place] [address] (ABNORMAL) PTH (01/04/2017 10:14 AM EDT) athologist Signature PTH 81 (H) 15 - 65 [place] CHRISTINA pg/mL [facility]ORY Specimen Anatomical Collection Method Collection Time Receive d Time (Source) Location / / Volume Laterality Blood specimen 01/04/2017 10:14 7 (specimen) AM EDT 10:22 AM EDT Resulting Agency Comment Spec In Lab Thanh Meraz MD CHEMISTRY ORDERABLES Performing Organization Address City/[facility] [place] [address] Ferritin (01/04/2017 10:14 AM EDT) P athologist Signature Ferritin 107 30 - 400 [place] CHRISTINA ng/mL [facility] Comment: Pediatric reference ranges not verified at [facility], interpret with caution. Reference ranges for females greater evangelista n 50 years of age approach values for men, i.e., 30-400 ng/mL. Specimen Anatomical Collection Method Collection Time Receive d Time (Source) Location / / Volume Laterality Blood specimen 01/04/2017 10:14 7 (specimen) AM EDT 10:22 AM EDT Resulting Agency Comment Spec In Lab Thanh Meraz MD CHEMISTRY ORDERABLES Performing Organization Address City/State/ZIP Code Phon e Number [address] Iron and TIBC (01/04/2017 10:14 AM EDT) athologist Signature Iron 76 30 - 150 [facility] m[facility]/dL [facility] TIBC 339 250 - 450 [facility] mcg/dL [facility] Iron Saturation 22 20 - 50 % [facility] Specimen Anatomical Collection Method Collection Time Receive d Time (Source) Location / / Volume Laterality Blood specimen 01/04/2017 10:14 7 (specimen) AM EDT 10:22 AM EDT Resulting Agency Comment Spec In Lab Thanh Meraz MD CHEMISTRY ORDERABLES Performing Organization Address City/State/ZIP Code Phon e Number [address] Prealbumin (01/04/2017 10:14 AM EDT) athologist [facility] Prealbumin 26 20 - 40 [facility] mg/dL [facility] Comment: Prealbumin levels are generally lower in the pediatric population; adult concentrations are usually attained near puberty. Specimen Anatomical Collection Method Collection Time Receive d Time (Source) Location / / Volume Laterality Blood specimen 01/04/2017 10:14 7 (specimen) AM EDT 10:22 AM EDT Resulting Agency Comment Spec In Lab Thanh Meraz MD CHEMISTRY ORDERABLES Performing Organization Address City/State/[place] [address] (ABNORMAL) Comprehensive metabolic panel (non-fasting) (01/04/2017 10:14 AM EDT) athologist [facility] Glucose Lvl 102 65 - 199 [facility] mg/dL [facility]ORY Comment: Diabetes: >=200 mg/dL plus symp toms BUN 15 8 - 18 mg/dL [facility] Creatinine 0.65 (L) 0.70 - 1.20 mg/dL [facility] Comment: Please note that the pediatric reference intervals supplied above were not validated at [facility]. Results from pediatri c patients should be interpreted in conjunction to the patient's age, height and muscle mass. Sodium 143 135 - 145 mmol/L [facility] Potassium 3.6 3.5 - 5.0 mmol/L [facility] Comment: Please note: ??Patients with WBC >100,00 0 may have falsely elevated Potassium levels. ??For accurate Potassium quantif ication in these patients send serum separator tube (gold top) for subsequent determinations. ??Contact the Clinical Chemistry Laboratory if there are any qu estions. Chloride 104 98 - 107 mmol/L [facility] CO2 26 22 - 31 mmol/L [facility] Anion Gap 13 5 - 15 mmol/L [facility] Calcium 10.1 8.5 - 10.5 mg/dL [facility] Total Protein 6.8 6.1 - 8.0 gm/dL [facility] Albumin 4.2 3.2 - 5.2 gm/dL [facility] AST 23 0 - 30 unit/L [facility] ALT 35 (H) 0 - 30 unit/L [facility] Alk Phos 131 (H) 40 - 104 unit/L [facility] Total Bilirubin 1.0 0.2 - 1.3 mg/dL [facility] Bili, Direct 0.2 0.0 - 0.3 mg/dL [facility] Estimated GFR >60 >=60 [facility] Comment: This estimated GFR (eGFR) value was calc ulated using the MDRD equation which has been validated on patients between t he ages of 18 and 70. The MDRD should not be used to assess kidney function in patients < 18 years of age or in patients with extremes of body mass, or in patients with acute kidney failure. This value should be multiplied by 1.2 f or patients. For further information please copy and past e the following links into your internet browser. [email or web address] [email or web address] Specimen Anatomical Collection Method Collection Time Receive d Time (Source) Location / / Volume Laterality Blood specimen 01/04/2017 10:14 7 (specimen) AM EDT 10:22 AM EDT Resulting Agency Comment Spec In Lab Thanh Meraz MD CHEMISTRY ORDERABLES Performing Organization Address City/[facility]/ZIP Code Phon e Number [address] (ABNORMAL) TSH (01/04/2017 8:44 AM EDT) P athologist Signature TSH 4.33 (H) 0.27 - 4.20 [facility] mcIU/mL [facility]ORY Specimen Anatomical Collection Method Collection Time Receive d Time (Source) Location / / Volume Laterality Blood specimen 01/04/2017 8:44 AM 017 9:01 (specimen) EDT AM EDT Resulting Agency Comment Spec In Lab Sergo Garcia MD CHEMISTRY ORDERABLES Performing Organization Address City/[facility]/[place] [address] (ABNORMAL) Hemoglobin A1c (01/04/2017 8:44 AM EDT) Analysis Performed At Patho logist Time Signature Hemoglobin A1C 8.7 (H) 4.3 - 5.6 [facility] Comment: Reference Range: 4.3 - 5.6% 5.7 - 6.4% - Increased Risk of Developin g Diabetes Mellitus >=6.5% - Consistent with diagnosis of Di abetes Mellitus In the absence of hyperglycemia (i.e. pl asma glucose > 200 mg/dL) or classic symptoms of hyperglycemia a repeat measu rement of HbA1c should be performed on a separate sample to confirm the diagnos is. Diagnosis and Classification of Diabetes Mellitus, Diabetes Care 2013; 36: Suppl. 1, S67-74 Est Avg Gluc 203 mg/dL [facility] Comment: eAG equivalents for HbA1c percentages: HbA1c(%) ?eAG(mg/dL) 6.0 ?126 6.5 ?140 7.0 ?154 7.5 ?169 8.0 ?183 8.5 ?197 9.0 ?212 9.5 ?226 10.0 ? 240 Limitations: The eAG calculation has not been validated on women, individuals below 18 years old and above 70 years old, and individuals with hemoglobinopathies. Additional resources are available on [employer] website: [email or web address] Kota STEIN, Sanford J, Livia R, et al. ??Tr anslating the A1C assay into estimated average glucose values. ??Diabetes Care 2008:31(8):1029-8419. Specimen Anatomical Collection Method Collection Time Receive d Time (Source) Location / / Volume Laterality Blood specimen 01/04/2017 8:44 AM 017 9:01 (specimen) EDT AM EDT Resulting Agency Comment Spec In Lab Srego Garcia MD CHEMISTRY ORDERABLES Performing Organization Address City/State/[place] [address] documented in this encounter Visit Diagnoses Diagnosis Type 2 diabetes mellitus without complic ation, with long-term current use of insulin Hypothyroidism due to acquired atrophy o f thyroid S/P gastric bypass Bariatric surgery status Controlled type 2 diabetes mellitus with out complication, 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
--- OUTSIDE RECORDS SUMMARY | 2022-09-16 12:28 | XMS_ITS | Encounter Summary ---
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 Specimen Anatomical Collection Method Collection Time Receive d Time (Source) Location / / Volume Laterality Blood specimen 01/04/2017 10:14 7 (specimen) AM EDT 10:22 AM EDT Resulting Agency Comment Spec In Lab Thanh Meraz MD CHEMISTRY ORDERABLES Performing Organization Address City/[facility]/ZIP Code Phon e Number [address] (ABNORMAL) Vitamin B1, whole blood (01/04/2017 10:14 AM EDT) athologist Signature Vit B1 Lvl WB 194 (H) 70 - 180 [facility] CHRISTINA nmol/L [facility] Comment: ADDITIONAL INFORMATIO N This test was developed and its performa nce characteristics determined by [facility] in a manner co nsistent with CLIA requirements. This test has not been nathaniel ared or approved by the U.S. Food and Drug Administration. Test Performed by: [address] [address] Specimen Anatomical Collection Method Collection Time Receive d Time (Source) Location / / Volume Laterality Blood specimen 01/04/2017 10:14 7 (specimen) AM EDT 10:57 AM EDT Resulting Agency Comment Spec In Lab Thanh Meraz MD CHEMISTRY ORDERABLES Performing Organization Address City/State/[facility] [place] [address] Vitamin D, 25-Hydroxy (01/04/2017 10:14 AM EDT) P athologist Signature 25-OH Vit D 36 30 - 100 [facility] Total ng/mL [facility] Comment: Deficient <10 ng/mL Insufficient 10 to 29 ng/mL Sufficient 30 to 100 ng/mL Potential Intoxication >100 ng/mL According to the US National Osteoporosi s Foundation, Vitamin D concentrations >30 ng/mL are sufficient to protect bone health. ??The National Kidney Foundation has similarly stated that pat ients with Vitamin D concentrations <30ng/mL should be considered to be insu fficient or deficient. http://Exoprise/[facility] CITYnatlkidneyfoundat ion http://Exoprise/DHMCVitD The [employer] Vitamin D Immunoassay detec [...] Organization Address City/State/ZIP Code Phon e Number [address] (ABNORMAL) PTH (01/04/2017 10:14 AM EDT) athologist Signature PTH 81 (H) 15 - 65 RUTH CHRISTINA pg/mL [facility] Specimen Anatomical Collection Method Collection Time Receive d Time (Source) Location / / Volume Laterality Blood specimen 01/04/2017 10:14 7 (specimen) AM EDT 10:22 AM EDT Resulting Agency Comment Spec In Lab Thanh Meraz MD CHEMISTRY ORDERABLES Performing Organization Address City/[facility]/ZIP Code Phon e Number [address] Ferritin (01/04/2017 10:14 AM EDT) athologist Signature Ferritin 107 30 - 400 [facility]/mL [facility] Comment: Pediatric reference ranges not verified at [facility], interpret with caution. Reference ranges for females [...] Organization Address City/State/ZIP Code Phon e Number [address] Iron and TIBC (01/04/2017 10:14 AM EDT) athologist Signature Iron 76 30 - 150 RUTH CHRISTINA mcg/dL [facility] TIBC 339 250 - 450 [place] CHRISTINA mcg/dL [facility] Iron Saturation 22 20 - 50 % [facility] Specimen Anatomical Collection Method Collection Time Receive d Time (Source) Location / / Volume Laterality Blood specimen 01/04/2017 10:14 7 (specimen) AM EDT 10:22 AM EDT Resulting Agency Comment Spec In Lab Thanh Meraz MD CHEMISTRY ORDERABLES Performing Organization Address City/State/ZIP [place] [address] Prealbumin (01/04/2017 10:14 AM EDT) athologist Signature Prealbumin 26 20 - 40 [facility] Comment: Prealbumin levels are generally lower in the pediatric population; adult concentrations are usually attained near puberty. Specimen Anatomical Collection Method Collection Time Receive d Time (Source) Location / / Volume Laterality Blood specimen 01/04/2017 10:14 7 (specimen) AM EDT 10:22 AM EDT Resulting Agency Comment Spec In Lab Thanh Meraz MD CHEMISTRY ORDERABLES Performing Organization Address City/State/ZIP [place] [address] (ABNORMAL) Comprehensive metabolic panel (non-fasting) (01/04/2017 10:14 AM EDT) athologist [facility] Glucose Lvl 102 65 - 199 [facility] mg/dL [facility] Comment: Diabetes: >=200 mg/dL plus symp toms BUN 15 8 - 18 mg/dL [facility] Creatinine 0.65 (L) 0.70 - 1.20 mg/dL [facility] Comment: Please note that the pediatric reference intervals supplied above were not validated at [facility]. Results from pediatri c patients should be interpreted in conjunction to the patient's age, height and muscle mass. Sodium 143 135 - 145 mmol/L [facility] Potassium 3.6 3.5 - 5.0 mmol/L [facility] Comment: Please note: ??Patients with WBC >100,00 0 may have falsely elevated Potassium levels. ??For accurate Potassium quantif ication in these patients send serum separator tube (gold top) for subsequent determinations. ??Contact the Clinical Chemistry Laboratory if there are any qu estions. Chloride 104 98 - 107 mmol/L [facility] CO2 26 22 - 31 mmol/L [facility] Anion Gap 13 5 - 15 mmol/L [facility] Calcium 10.1 8.5 - 10.5 mg/dL [facility] Total Protein 6.8 6.1 - 8.0 gm/dL [facility] Albumin 4.2 3.2 - 5.2 gm/dL [facility] AST 23 0 - 30 unit/L [facility] ALT 35 (H) 0 - 30 unit/L [facility] Alk Phos 131 (H) 40 - 104 unit/L [facility] Total Bilirubin 1.0 0.2 - 1.3 mg/dL [facility] Bili, Direct 0.2 0.0 - 0.3 mg/dL [facility] Estimated GFR >60 >=60 [facility] Comment: This estimated GFR (eGFR) value [...] the following links into your internet browser. http://Exoprise/DHnkdep http://Exoprise/DHMCnkf Specimen Anatomical Collection Method Collection Time Receive d Time (Source) Location / / Volume Laterality Blood specimen 01/04/2017 10:14 7 (specimen) AM EDT 10:22 AM EDT Resulting Agency Comment Spec In Lab Thanh Meraz MD CHEMISTRY ORDERABLES Performing Organization Address City/State/[place] [address] documented in this encounter Visit Diagnoses Diagnosis S/P gastric bypass Bariatric surgery status Vitamin D deficiency Unspecified vitamin D deficiency Controlled type 2 diabetes mellitus with out complication, unspecified mcfp insulin use status Catherine infection of flexural skin Candidiasis of skin and nails documented in this encounter Care Teams Corporate Development Officer Relationship Specialty Start Date End Date Zhanna Francois APRN PCP - General 01/27/15 05/15/19 documented as of this encounter
--- OUTSIDE RECORDS SUMMARY | 2022-09-16 12:28 | XMS_ITS | Encounter Summary ---
:1965 Author Organization [facility] [place] [address] Care Team Providers Name Role Phone Jonathan Smith MD Primary Care Provider Encounter Details Date Type Department Care Team Description 02/28/2020 Telephone Obstetrics and Gynec ology at [facility] [place] [address] Social History Tobacco Use Types Packs/Day Years Used Date Smoking Tobacco: Never Smokeless Tobacco: Never Alcohol Use Standard Drinks/Week Comments Not Currently 0 (1 standard drink = 0.6 oz pure alcoho l) Sex Assigned at Date Recorded Not on file documented as of this encounter Miscellaneous Notes Telephone Encounter - Ema Jang - 02/28/2020 9:40 AM EDT Message left for patient to call the clinic to reschedule with Dr. Cardoza. documented in this encounter Plan of Treatment Not on filedocumented as of this encounter Visit Diagnoses Not on filedocumented in this encounter Care Teams Zipper Cutter Relationship Specialty Start Date End Date Jonathan Smith MD PCP - General Family Medicine 07/16/[address] [place] [id number] documented as of this encounter
--- OUTSIDE RECORDS SUMMARY | 2022-09-16 12:28 | XMS_ITS | Encounter Summary ---
:1965 Author Organization [facility] [place] [address] Care Team Providers Name Role Phone Zhanna Francois APRN Primary Care Provider Reason for Visit Reason Comments Diabetes Encounter Details Date Type Department Care Team Description 10/05/2016 Office Visit Endocrinology at [facility] Lluvia Rios Type 2 diabetes mellitus wit hout complication, with long-term current use of insulin; [facility] JESSE Mireles Hypothyroidism due to acquired atrophy [place] [address] CENTER [phone] [place] [address] Social History Tobacco Use Types Packs/Day Years Used Date Smoking Tobacco: Never Smokeless Tobacco: Never Alcohol Use Standard Drinks/Week Comments No 0 (1 standard drink = 0.6 oz pure alcoho l) Sex Assigned at Date Recorded Not on file documented as of this encounter Last Filed Vital Signs Vital Sign Reading Time Taken Comments Blood Pressure 146/87 10/05/2016 10:10 AM EST Pulse 60 10/05/2016 10:10 AM EST Temperature - - Respiratory Rate - - Oxygen Saturation - - Inhaled Oxygen Concentration - - Weight 134.6 kg (296 lb 11.2 oz) 10/05/2016 10:10 AM EST Height 162.6 cm (5' 4.02) 10/05/2016 10:10 AM EST Body Mass Index 50.9 10/05/2016 10:10 AM EST documented in this encounter Patient Instructions Patient InstructionsLluvia Vargas APRN - 10/05/2016 10:00 AM EST Only take novolog when glucose is above 180. Take lowest dose Schedule dilated eye exam documented in this encounter Progress Notes Lluvia Vargas APRN - 10/05/2016 10:00 AM EST REASON FOR VISIT: Followup type 2 DM, in good control. Also, hyperlipidemia, hypothyroidism related to Graves disease, had ablation. Also, morbid obesity, sleep apnea. BRIEF HISTORY: Presents and states she is very happy that she has the gastric bypass surgery, has lost over 30 pounds. SBGM 3 times a day. Has been taking NovoLog. Feels like she is having a low glucose level during the office visit, but when it was checked it was over 200. DIABETES REGIMEN: The highest dose of NovoLog FlexPen has been 10 units 2-3 times a day recently. PHYSICAL ACTIVITY: Plans to resume swimming soon. She still has some joint pains, but they are less painful. 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 REVIEW OF SYSTEMS: Depression and mood: States she is doing well. Her son purchased her taxi rides so she would be able to go swimming. Eyes: No recent vision changes. Takes a beta ac to prevent headaches. No recent chest pain or shortness of breath. States she was sent home on oxygen, but now she does not need it. GI symptoms: She states the taste of all her foods is very different and she has not found many foods that she enjoys except saltine crackers recently. Sleep pattern: Uses BiPAP apparatus. Extremities: Knee pains and hip pains. PHYSICAL EXAM: Appearance: She is globally obese with a very large central girth. Weight 296 pounds. Blood pressure 146/87. Eyes: No retinopathy with green light exam. Neck: No thyromegaly or lymphadenopathy. Heart: Regular rate and rhythm. Lungs are clear to auscultation. Feet: Skin is dry. Pulses are normal. Neuro: Normal sensation to 10 G's of pressure. No labs were done today. Prior to surgery, hemoglobin A1c was 7.7%. Will wait to recheck the A1c at her next followup visit. The patient states she has not been under 300 pounds for years. She is very pleased with her situation. Ambulates with assistance of 1 crutch. Gave her correction factor for NovoLog of 15 with a target glucose level of 150 before meals for now. If glucose levels are still too high, also gave her information to use a correction factor of 10 with a target glucose of 120 before meals 3 times a day. The message for her is to use the least amount of NovoLog with the best glucose levels. Return to office in December when she has an appointment with another provider. Encouraged to be as physically active as possible. Demonstrated chair stands and also the patient is interested in purchasing a pedaler. In December will check hemoglobin A1c and TSH. Hypothyroidism followup after TSH results. This was a 33-minute office visit, with 32 minutes spent counseling [id number] with the patient in the management of glucose levels, congratulating her with her weight loss efforts, and giving her information to use for bolus NovoLog doses. Recent Results (from the past 72 hour(s)) POCT Fingerstick Glucose Result Value Ref Range POC Glucose 208 (H) 60 - 199 mg/dl documented in this encounter Plan of Treatment Not on filedocumented as of this encounter Procedures Procedure Name Priority Date/Time Associated Comments Diagnosis POCT FINGERSTICK STAT 10/05/2016 10:08 Type 2 diabetes Resu lts for this GLUCOSE AM EST mellitus without procedure a re in complication, with the resul ts long-term current section. use of insulin documented in this encounter Results (ABNORMAL) TSH (01/04/2017 8:44 AM EDT) P athologist Signature TSH 4.33 (H) 0.27 - 4.20 [facility] mcIU/mL [facility] Specimen Anatomical Collection Method Collection Time Receive d Time (Source) Location / / Volume Laterality Blood specimen 01/04/2017 8:44 AM 017 9:01 (specimen) EDT AM EDT Resulting Agency Comment Spec In Lab Sergo Garcia MD CHEMISTRY ORDERABLES Performing Organization Address City/State/[place] [address] (ABNORMAL) Hemoglobin A1c (01/04/2017 8:44 AM EDT) Analysis Performed At Patho logist Time Signature Hemoglobin A1C 8.7 (H) 4.3 - 5.6 [facility] Comment: Reference Range: 4.3 - [...] 1, S67-74 Est Avg Gluc 203 mg/dL [facility] Comment: eAG equivalents for HbA1c percentages: HbA1c(%) ?eAG(mg/dL) 6.0 ?126 6.5 ?140 7.0 ?154 7.5 ?169 8.0 ?183 8.5 ?197 9.0 ?212 9.5 ?226 10.0 ? 240 Limitations: The eAG calculation has not been validated on women, individuals below 18 years old and above 70 years old, and individuals with hemoglobinopathies. Additional resources are available on e [employer] website: http://[employer].Missionly/DHMCadacalc Kota STEIN, [place]ford Barry, Livia R, et al. ??Tr anslating the A1C assay into estimated average glucose values. ??Diabetes Care 2008:31(8):6108-0117. Specimen Anatomical Collection Method Collection Time Receive d Time (Source) Location / / Volume Laterality Blood specimen 01/04/2017 8:44 AM 017 9:01 (specimen) EDT AM EDT Resulting Agency Comment Spec In Lab Sergo Garcia MD CHEMISTRY ORDERABLES Performing Organization Address City/State/ZIP [place] [address] (ABNORMAL) POCT Fingerstick Glucose (10/05/2016 10:08 AM EST) P athologist Signature POC Glucose 208 (H) 60 - 199 mg/dl Comment: Appt with CLIENT SUPPORT ASSOCIATE; patient felt l ow and hadn't eaten breakfast yet Specimen (Source) Anatomical Collection Method Collection Time Re ceived Time Location / / Volume Laterality 10/05/2016 10:08 AM EST Sergo Garcia MD POINT OF CARE TEST ORDERABLE S documented in this encounter Visit Diagnoses Diagnosis Type 2 diabetes mellitus without complic ation, with long-term current use of insulin Hypothyroidism due to acquired atrophy o f thyroid documented in this encounter Care Teams Track Repair Person Relationship Specialty Start Date End Date Zhanna Francois APRN PCP - General 01/27/15 05/15/19 documented as of this encounter
--- OUTSIDE RECORDS SUMMARY | 2022-09-16 12:28 | XMS_ITS | Encounter Summary ---
:1965 Author Organization [facility] [place] [address] Care Team Providers Name Role Phone Jonathan Smith MD Primary Care Provider Encounter Details Date Type Department Care Team Description 01/15/2020 Telephone Obstetrics and Gy[place] ology [place] [facility] [place] [address] Social History Tobacco Use Types Packs/Day Years Used Date Smoking Tobacco: Never Smokeless Tobacco: Never Alcohol Use Standard Drinks/Week Comments Not Currently 0 (1 standard drink = 0.6 oz pure alcoho l) Sex Assigned at Date Recorded Not on file documented as of this encounter Miscellaneous Notes Telephone Encounter - Ema Jang - 01/15/2020 3:07 PM EDT MESSAGE left for patient to call office regarding setting up a phone appointment with Dr. Cardoza. documented in this encounter Plan of Treatment Not on filedocumented as of this encounter Visit Diagnoses Not on filedocumented in this encounter Care Teams Sheet Metal Duct Worker Supervisor Relationship Specialty Start Date End Date Jonathan Smith MD PCP - General Family Medicine 07/16/[address] [place] [address] documented as of this encounter
--- OUTSIDE RECORDS SUMMARY | 2022-09-16 12:28 | XMS_ITS | Encounter Summary ---
:1965 Author Organization [facility] [place] [address] Care Team Providers Name Role Phone Zhanna Francois APRN Primary Care Provider Encounter Details Date Type Department Care Team Description 12/31/2018 Telephone General Surgery at [facility] [place] [place] [address] Social History Tobacco Use Types Packs/Day Years Used Date Smoking Tobacco: Never Smokeless Tobacco: Never Alcohol Use Standard Drinks/Week Comments No 0 (1 standard drink = 0.6 oz pure alcoho l) Sex Assigned at Date Recorded Not on file documented as of this encounter Miscellaneous Notes Telephone Encounter - Audrey Wang - 12/31/2018 8:53 AM EDT LMOM for to see if patient is interested in scheduling a follow-up visit. I asked them to give us a call back to set up an appointment and let them know that I will be mailing them a letter in the mail. documented in this encounter Plan of Treatment Not on filedocumented as of this encounter Visit Diagnoses Not on filedocumented in this encounter Care Teams Appliance Tester Relationship Specialty Start Date End Date Zhanna Francois APRN PCP - General 01/27/15 05/15/19 documented as of this encounter
--- OUTSIDE RECORDS SUMMARY | 2022-09-16 12:28 | XMS_ITS | Encounter Summary ---
:1965 Author Organization [facility] [place] [address] Care Team Providers Name Role Phone Zhanna Francois APRN Primary Care Provider Reason for Visit Reason Comments Medication Refill Encounter Details Date Type Department Care Team Description 01/16/2017 Refill General Surgery at [facility] Lotus Busby APRN Vitamin D deficiency [facility] [place] [address] [place], [place] [id number] [phone] (Wo rk) Social History Tobacco Use Types Packs/Day Years Used Date Smoking Tobacco: Never Smokeless Tobacco: Never Alcohol Use Standard Drinks/Week Comments No 0 (1 standard drink = 0.6 oz pure alcoho l) Sex Assigned at Date Recorded Not on file documented as of this encounter Plan of Treatment Not on filedocumented as of this encounter Visit Diagnoses Diagnosis Vitamin D deficiency Unspecified vitamin D deficiency documented in this encounter Care Teams Theater Company Producer Relationship Specialty Start Date End Date Zhanna Francois APRN PCP - General 01/27/15 05/15/19 documented as of this encounter
--- OUTSIDE RECORDS SUMMARY | 2022-09-16 12:28 | XMS_ITS | Encounter Summary ---
:1965 Author Organization [facility] [place] [address] Care Team Providers Name Role Phone FrancoisZhanna Jhonny MOLINA Primary Care Provider Encounter Details Date Type Department Care Team Description 06/15/2017 Telephone General Surgery at [facility] Luisa Herrmann, SH[facility] [place] [address] GENERAL SURGERY [phone] [place], [place] [address] (Wo rk) Social History Tobacco Use Types Packs/Day Years Used Date Smoking Tobacco: Never Smokeless Tobacco: Never Alcohol Use Standard Drinks/Week Comments No 0 (1 standard drink = 0.6 oz pure alcoho l) Sex Assigned at Date Recorded Not on file documented as of this encounter Miscellaneous Notes Telephone Encounter - Luisa Herrmann, RD - 06/15/2017 11:03 AM EDT I called Ruth Perez today to check in. She is s/p Laparoscopic Sleeve Gastrectomy on 09/12/16. I left a with my contact information and asked her to return my call. Addendum: Ruth Perez returned my call. States she canceled her appointment due to an issue with her eye that isimpacting her vision. She was recently seen by an interior design professional. She feels like she has gained weight. States a recent weight at the doctor's was 272.2# but she thinks she was 10-15# less. Regained weight during stressful time last Fe - more baking and increased snacking. Pt notes she's been feeling incredible fatigue along with skin lesions and nodules on her lungs. PCPis evaluating. Started keeping a log. Feels like she's not eating as well a she should be. Feels like she's eating too many calories and more carbs (bread and crackers b/c they are fast and comforting). Feels like she is snacking too much. She cooks meals from scratch and typically preps a few days worth of food at one time. Currently low activity. Doing some short walks. Not currently able to afford gym membership - [employer]. Also notes her food stamps just decreased. There is also a chance her child support may decrease. Intolerant: pasta and potato. Nonscale victories since surgery: No longer using [employer] Crutches. Now able to go to [employer]. 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 Did some small hikes this summer that she hasn't done in forever. After discussing a few options, Ruth Perez decided her first step to get back on track is to write a list before shopping. She notes when she has a list she spends less money, makes better choices and can shorten her time spent at the store. Ruth Perez states she will call to reschedule her f/u appointment once she hears back from her PCP. (If she has to come to [facility] for another appointment, she would like to coordinate it with her bariatric surgery f/u.) Pt was encouraged to call with any questions/concerns. documented in this encounter Plan of Treatment Not on filedocumented as of this encounter Visit Diagnoses Not on filedocumented in this encounter Care Teams Record Tester Relationship Specialty Start Date End Date Zhanna Francois APRN PCP - General 01/27/15 05/15/19 documented as of this encounter
--- OUTSIDE RECORDS SUMMARY | 2022-09-16 12:28 | XMS_ITS | Encounter Summary ---
:1965 Author Organization [facility] [place] [address] Care Team Providers Name Role Phone Jonathan Smith MD Primary Care Provider Encounter Details Date Type Department Care Team Description 01/02/2020 Telephone Obstetrics and Gynecology at Mickie Granado sa, [place] [address] Social History Tobacco Use Types Packs/Day Years [...] on filedocumented in this encounter Care Teams Door To Door Lead Generation Relationship Specialty Start Date End Date Jonathan Smith MD PCP - General Family Medicine 07/16/[address] [place] [id number] documented as of this encounter
--- OUTSIDE RECORDS SUMMARY | 2022-09-16 12:28 | XMS_ITS | Encounter Summary ---
:1965 Author Organization [facility] [place] [address] Care Team Providers Name Role Phone Zhanna Francois APRN Primary Care Provider Encounter Details Date Type Department Care Team Description 09/19/2016 Telephone Endocrinology at [facility] Gina Ramos, [place] [address] Social History Tobacco Use Types Packs/Day Years Used Date Smoking Tobacco: Never Smokeless Tobacco: Never Alcohol Use Standard Drinks/Week Comments No 0 (1 standard drink = 0.6 oz pure alcoho l) Sex Assigned at Date Recorded Not on file documented as of this encounter Miscellaneous Notes Telephone Encounter - Lluvia Vargas APRN - 09/19/2016 5:35 PM EST ELECTROLYSIST called pt. Had her check mperofz=[id number]. PCP has called in prescription to treat the yeast infection. Advised pt to call ELECTROLYSIST if glucose >160 before meals. May need low dose meal time insulin Telephone Encounter - Gina Urias, RN - 09/19/2016 12:04 PM EST Ruth ferraro calls in and left message for Lluvia Vargas. States that she was sent home post-op to start on a different medication, invokana rather then what she had been taking. States that she has been taking it and now has a bad yeast infection. States that it keeps getting worse and so she has stopped taking the invokana. States that it has spread down to her legs and also has it vaginally. documented in this encounter Plan of Treatment Not on filedocumented as of this encounter Visit Diagnoses Not on filedocumented in this encounter Care Teams Learning Services Coordinator Relationship Specialty Start Date End Date Zhanna Francois APRN PCP - General 01/27/15 05/15/19 documented as of this encounter
--- OUTSIDE RECORDS SUMMARY | 2022-09-16 12:28 | XMS_ITS | Encounter Summary ---
:1965 Author Organization [facility] [place] [address] Care Team Providers Name Role Phone Zhanna Francois JESSE Primary Care Provider Reason for Visit Reason Onset Date Comments Other 09/22/2016 Encounter Details Date Type Department Care Team Description 09/22/2016 Telephone General Surgery at [facility] Stefani Ceron, [place] [address] Social History Tobacco Use Types Packs/Day Years Used Date Smoking Tobacco: Never Smokeless Tobacco: Never Alcohol Use Standard Drinks/Week Comments No 0 (1 standard drink = 0.6 oz pure alcoho l) Sex Assigned at Date Recorded Not on file documented as of this encounter Miscellaneous Notes Telephone Encounter - Stefani Ceron, RN - 09/22/2016 9:12 AM EST Images from the original note were not included. S/P sleeve gastrectomy, RNY gastric bypass on: Thanh Meraz MD General Surgery []Hide copied text []Hover for attribution information Brief Operative Note ?? Patient Name: Ruth Galeana : [id number] MR#: [id number] ?? Case Date: 09/12/2016 ?? Surgeon: Surgeon(s) and Role: * Thanh Meraz MD - Primary * Cinthya Alva MD - Fellow ?? Preoperative diagnosis: OBESITY ?? Postoperative diagnosis: OBESITY ?? Procedure(s): @LAPAROSCOPY, SURG/GASTRIC RESTRICTIVE PROC, LONGITUDINAL GASTRECTOMY ENDOSCOPY, UPPER GI, DIAGNOSTIC, WITH OR WITHOUT SPECIMENS ?? Anesthesia: General ?? Findings: significant adhesions in pelvis, Large liver making upper abdominal exposure a challenge. Decision to proceed with Gastric sleeve for these reasons as discussed with her preop. ?? Discharged on PO Day #:3 Issues during hospitalization: Today's phone discussion took place with patient, Stefani Ceron RN S. Ruth Galeana was called via phone for post discharge follow up. Diet: stage:11 Fluids: coughing a lot using an inhaler:asthma At least 30 oz q day Protein: only from the protein drinks = 60 0z Still hungry, taste is off, Other: Nausea/ vomiting: little nausea here and there , first thing in the am and when taking vitamins Urination: adequate, no difficulties Bowels: working okay every other day, getting more normal Activity level: up and moving around, went to grocery store used a cart Pain level, analgesia requirements: no did not fill script Any significant changes to comorbidites/ medications (ex DM, HTN): Followed by endo Medications: Currently crushing or taking liquid form of medications, as appropriate: Taking ulcer prevention medication: Omeprazole 20 mg po QD Taking Ursodiol (if appropriate): N/A VTE prophylaxis: enoxaparin: yes/Enoxaparin 40 mg BID x 10 days post discharge. Follow up: PCP appointment: Tomorrow at 9:05 with her PCP at one month, as scheduled with surgeon and RD Patient questions: all answered questions Recommendations: keep pushing fluids to reach her max will help with feeling empty. Did have a yeastinfection, did get a prescription from her PCP. Not taking a BS medications are her BS'a are 130-145at this time. Endocrinology follow the patient. documented in this encounter Plan of Treatment Not on filedocumented as of this encounter Visit Diagnoses Not on filedocumented in this encounter Care Teams Executive Admin Relationship Specialty Start Date End Date Zhanna Francois APRN PCP - General 01/27/15 05/15/19 documented as of this encounter
--- OUTSIDE RECORDS SUMMARY | 2022-09-16 12:28 | XMS_ITS | Encounter Summary ---
:1965 Author Organization [facility] [place] [address] Care Team Providers Name Role Phone Zhanna Francois APRN Primary Care Provider Reason for Visit Reason Onset Date Comments Medication Refill 08/04/2017 Encounter Details Date Type Department Care Team Description 08/04/2017 Refill Endocrinology at [facility] Lluvia Rios TRAFFIC ENGINEER [facility] [place] [address] ENDOCRINOLOGY DEPT. [phone] [place], [place] [address] (Wo rk) Social History Tobacco [...] on filedocumented in this encounter Care Teams Manager Market Research Relationship Specialty Start Date End Date Zhanna Francois APRN PCP - General 01/27/15 05/15/19 documented as of this encounter
--- OUTSIDE RECORDS SUMMARY | 2022-09-16 12:28 | XMS_ITS | Encounter Summary ---
:1965 Author Organization [facility] [place] [address] Care Team Providers Name Role Phone AlessandroZhanna Jhonny MOLINA Primary Care Provider Reason for Visit Reason Comments Follow Up Surgery Encounter Details Date Type Department Care Team Description 10/05/2016 Office Visit General Surgery at [facility] [place] [address] Postoperative visit [facility] Luisa Herrmann, RD [facility] [place] [place] [address] [place] [address] Social History Tobacco Use Types Packs/Day Years Used Date Smoking Tobacco: Never Smokeless Tobacco: Never Alcohol Use Standard Drinks/Week Comments No 0 (1 standard drink = 0.6 oz pure alcoho l) Sex Assigned at Date Recorded Not on file documented as of this encounter Patient Instructions Patient InstructionsLuisa Herrmann, RD - 10/05/2016 11:20 AM EST Bariatric Surgery Program First Post-operative Follow up visit Contact information: Anaid Crook: [phone] Dietitian: [phone] Surgeons/ nurse practitioner: [phone] Nurse line: [phone] Your excess body weight lost: 17% Next follow up visit: at 4 months post-op. Testing: Labwork will be done at your 4 month post op check. If you have labwork done by your doctor before that date, please have it sent to the Bariatric Surgery Program. Post surgery Medications: 1. Medication to prevent ulcer, as prescribed prior to surgery, needs to continue until you are at least 3 months post surgery, or as indicated by your primary care doctor. 2. If you have a gallbladder, continue to take Ursodiol 300 mg twice daily for a total of 6 months after surgery to prevent gallstones from forming, and to shrink any gallstones that may be present. Vitamin and mineral supplementation recommendations: The following vitamins are recommended: ??? Multivitamins with minerals twice daily- needs to be an under 50 multivitamin that contains iron. ??? Vitamin B12 500 mcg by mouth once daily ??? Calcium citrate 600 mg with Vitamin D 400 units twice daily. Nutrition recommendations: - Your Daily Goals: ?? 3 meals per day. Snacks if physically hungry or you need to increase your protein and/or calories(choose protein and/or fruit) ?? 60 grams protein per day (20 grams per meal) ?? 48-64 oz of non-caloric and hydrating fluids per day (6-8, 8 oz cups) Activity: ??? Aim for 30 minutes of exercise daily, 5 days a week of both cardio and strength training exercises. Alcohol: should be used sparingly, no more than one drink per occasion. Alcohol is a source of emptycalories and can cause ulcers and vitamin and mineral deficiencies. Studies have noted that there isan increased risk of alcohol dependence after surgery. control for women of child bearing age: is recommended for at least 18-24 months after surgery. Call us: ??? If you have concerns. ??? If you have unexplained abdominal pain. ??? if you see blood in your stool or vomit blood ??? If you have prolonged vomiting Post Surgery Support Group: Our post surgery support group meets on the first Monday of every month from 1-2 PM at [facility] Internet resources: Www.[facility] www.[employer] Www.Tex[employer]Tree Www.PitchEnginemyQteros.gov Www.sofatutor.[employer]Tree [facility] facebook page: https://www.facebook.com/[facility]gery Bariatric surgery apps- [facility] Post-edmund Books: - Recipes for Life after Weight Loss Surgery by Lizabeth Crabtree (2012) - Shrink Yourself by Dr Sagar Delatorre documented in this encounter Progress Notes Luisa Herrmann RD - 10/05/2016 11:20 AM EST BSP Nutrition First Post-operative Follow up SUBJECTIVE: Topics Discussed/Patient Concerns: ?? Foods are not appealing. ?? She is excited everyone is coming home for the holiday OBJECTIVE: Date of Bariatric Surgery: 09/12/16 Type of Bariatric Surgery: Laparoscopic Sleeve Gastrectomy Weight History: Date Weight (lbs) HT BMI Comments 05/05/15 333.8# Highest Weight 06/15/16 328# Initial program weight 07/22/16 330# 64 56.6 1st pre-op visit EWL % Surgery 10/05/16 296.7# 16.7% 50.9 1 month post-op 4 months post-op [place] Body Weight (based on BMI of 25): 146# MEDICATIONS: Taking ulcer prevention medication: not daily. States she is not having any reflux so she doesn't take it regularly. Taking Ursodiol (if appropriate): n/a Opioid/ pain medication use: none. Vitamin/Mineral Supplements (reported by patient): purchased bariatric fusion but doesn't like the flavor. Has one pill per day. Supplement Type Brand/Form Dosage/Amount Frequency Comments Multivitamin flintstones Once day Plans to switch to pills Calcium Vitamin B12 Iron Vitamin D3 Daily Oral Intake: fluids have to be cold Breakfast 8 oz skim milk with 1/2 scoop protein powder AM Snack Lunch Chicken and vegetable (steam broccoli, carrots and cauliflower) - 4-5 x day PM Snack Dinner HS Snack Protein- grams/day: 50+ Calories per day: ~400 Hydrating fluids - oz/day: 48+ of water per day Soda: None. ETOH: None Caffeine: None Meals per day: 4-5/day Other: ?? Feels full/satisfied after eating:yes ?? Spends at least 20 minutes eating each meal: yes ?? Vomiting/ regurgitation: once when first got home. ?? Nausea: Indigestion when trying new foods ?? Constipation/diarrhea: a little bit. BM every other day. Food Allergies/Intolerances: Exercise: limited due to icy driveway. Walking indoors. Plan to walk at the mall with a friend who recently had bariatric surgery. Loves to swim but currently does not have transportation to the pool. Working on finding a ride. Also plans to buy a pedaler. ASSESSMENT: Patient s/p bariatric surgery with 16.7 % EWL. She is doing well meeting protein and fluid needs. Advised it was OK to have a cup of regular coffee. She is not tolerating the supplements she purchased.Advised she does not need chewable supplements anymore. She feels taking pill forms of her supplements will work better. Reviewed recommended supplementation. Advised she needs to continue with the omeprazole for ulcer prevention. She will restart. PLAN: ?? Evaluation by Dr. Meraz today. ?? Provided support/encouragement and reinforced importance of meeting nutritional goals. ?? Reviewed nutrition and vitamin and mineral supplement recommendations (see patient instructions). ?? Written recommendations provided. Patient agreed with these and verbalized adequate understanding. ?? Follow up at 4 months post surgery with labwork. Thanh Meraz MD - 10/05/2016 11:20 AM EST Ruth Galeana is a 51-year-old female who presents in followup status post a laparoscopic gastric sleeve on 09/12/16. Plan had initially been consideration for a [place]-en-Y gastric bypass. At the time of surgery, she was noted to have significant omental adhesions to the anterior abdominal wall from prior surgery. In addition, she had a very large liver, which would have made a [place]-en-Y gastric bypass quite a challenge. For these reasons, we proceeded with a sleeve gastrectomy, as we discussed with her as a possibility preoperatively. As I see her today, she looks great. She has lost 30 pounds since surgery, which she is very excited about. She has had some difficulty increasing her exercise, because she does not have a car at the moment, and her driveway is poorly plowed, making it difficult for her to get out and about. On exam, all trocar sites are healing well, without any evidence of erythema or herniation. Her abdomen is soft, flat and nontender. She will be seen by Luisa Herrmann immediately following my visit today, and have her dietary questions addressed, but overall, seems to be doing well and is very excited about her results thus far, as well as her decision to undergo surgery. documented in this encounter Plan of Treatment Not on filedocumented as of this encounter Visit Diagnoses Diagnosis Postoperative visit documented in this encounter Care Teams Salesperson Wigs Relationship Specialty Start Date End Date Zhanna Francois APRN PCP - General 01/27/15 05/15/19 documented as of this encounter
--- OUTSIDE RECORDS SUMMARY | 2022-09-16 12:28 | XMS_ITS | Encounter Summary ---
:1965 Author Organization [place] [place] [address] Care Team Providers Name Role Phone Zhanna Francois APRN Primary Care Provider Encounter Details Date Type Department Care Team Description 10/15/2018 Telephone Endocrinology at [facility] [place] [address] Social History Tobacco Use Types Packs/Day Years Used Date Smoking Tobacco: Never Smokeless Tobacco: Never Alcohol Use Standard Drinks/Week Comments No 0 (1 standard drink = 0.6 oz pure alcoho l) Sex Assigned at Date Recorded Not on file documented as of this encounter Miscellaneous Notes Telephone Encounter - Shanta Lopez LPN - 10/15/2018 10:52 AM EST Request received for Novolog from Sherif Tsai. Patient last seen 01/04/17. Called patient message left on v/m for patient to r/c to nurse. need to verify if patient wants a f/u or if getting insulin from another provider. documented in this encounter Plan of Treatment Not on filedocumented as of this encounter Visit Diagnoses Not on filedocumented in this encounter Care Teams Senior Administrative Associate Relationship Specialty Start Date End Date Zhanna Francois APRN PCP - General 01/27/15 05/15/19 documented as of this encounter
--- OUTSIDE RECORDS SUMMARY | 2022-09-16 12:28 | XMS_ITS | Encounter Summary ---
:1965 Author Organization [facility] [address] Care Team Providers Name Role Phone Zhanna Francois APRN Primary Care Provider Encounter Details Date Type Department Care Team Description 01/05/2017 Telephone Rheumatology at [facility] [place] [address] Social History Tobacco Use Types Packs/Day Years Used Date Smoking Tobacco: Never Smokeless Tobacco: Never Alcohol Use Standard Drinks/Week Comments No 0 (1 standard drink = 0.6 oz pure alcoho l) Sex Assigned at Date Recorded Not on file documented as of this encounter Miscellaneous Notes Telephone Encounter - Tram Torres - 01/05/2017 8:38 AM EDT Called and left to schedule follow up visit in April. documented in this encounter Plan of Treatment Not on filedocumented as of this encounter Visit Diagnoses Not on filedocumented in this encounter Care Teams Service Team Leader Relationship Specialty Start Date End Date Zhanna Francois APRN PCP - General 01/27/15 05/15/19 documented as of this encounter
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
--- OUTSIDE RECORDS SUMMARY | 2022-09-16 12:29 | XMS_ITS | Encounter Summary ---
:1965 Author Organization [facility] [place] [address] Care Team Providers Name Role Phone Zhanna Francois APRN Primary Care Provider Encounter Details Date Type Department Care Team Description 06/08/2016 Telephone General Surgery at [facility] [place] [place] [address] Social History Tobacco Use Types Packs/Day Years Used Date Smoking Tobacco: Never Smokeless Tobacco: Never Alcohol Use Standard Drinks/Week Comments No 0 (1 standard drink = 0.6 oz pure alcoho l) Sex Assigned at Date Recorded Not on file documented as of this encounter Miscellaneous Notes Telephone Encounter - Anaid Crook - 06/08/2016 1:49 PM EDT LMOM for Kelin to give me a call back. She sent in some additional paperwork to go through that bariatric surgery program. Her chart is now in scanned documents because it has been over a hear sincewe've heard from her and since she has been to an introductory meeting. documented in this encounter Plan of Treatment Not on filedocumented as of this encounter Visit Diagnoses Not on filedocumented in this encounter Care Teams Caddy Master Relationship Specialty Start Date End Date Zhanna Francois APRN PCP - General 01/27/15 05/15/19 documented as of this encounter
--- OUTSIDE RECORDS SUMMARY | 2022-09-16 12:29 | XMS_ITS | Encounter Summary ---
:1965 [place] [address] Care Team Providers Name Role Phone Alessandro Zhanna Jhonny MOLINA Primary Care Provider Reason for Visit Auth/Cert Specialty Diagnoses / Procedures Referred By Contact Refer red To Contact Diagnoses Obesity OBESITY UNK Procedures PRO LAP GASTRIC BYPASS/ESCOBAR-EN-Y PRO UPPER GI ENDOSCOPY, DIAGNOSTIC @LAPAROSCOPIC GASTROPLASTY, ENDOSCOPY, UPPER GI, DIAGNOSTIC, WITH OR WITHOUT SPECIMENS Referral ID Status Reason Start Date Expiration Date Visits Requ ested Visits Authorized [id number] 1 1 Encounter Details Date Type Department Care Team Description 09/12/2016 Surgery Main Operating Room Deven Goodwin, @ [facility], [facility] SURG/GASTRIC RESTRICTIVE [facility] DR GREEN (WRVU 20.38) [facility] [place] [address] [place] [address] [phone] (Wo rk) Social History Tobacco Use Types Packs/Day Years Used Date Smoking Tobacco: Never Smokeless Tobacco: Never Alcohol Use Standard Drinks/Week Comments No 0 (1 standard drink = 0.6 oz pure alcoho l) Sex Assigned at Date Recorded Not on file documented as of this encounter Last Filed Vital Signs Vital Sign Reading Time Taken Comments Blood Pressure 133/49 09/12/2016 3:30 PM EST Pulse 73 09/12/2016 3:30 PM EST Temperature 36.4 ??C (97.5 ??F) 09/12/2016 3:30 PM EST Respiratory Rate 15 09/12/2016 3:30 PM EST Oxygen Saturation 92% 09/12/2016 3:30 PM EST Inhaled Oxygen Concentration - - Weight 142.6 kg (314 lb 6 oz) 09/12/2016 10:02 AM EST Height 165.1 cm (5' 5) 09/12/2016 10:02 AM EST Body Mass Index 52.31 09/12/2016 10:02 AM EST documented in this encounter Discharge Summaries Dylan Bryant MD - 09/15/2016 4:32 PM EST Minimally Invasive Surgery Discharge Summary Recommendations for Providers: 1. Hypoxia - bibasilar atelectasis: Patient reports chronic hypoxia when seen in outpatient setting.Etiology is unclear. CTPE here was negative. She qualified for home oxygen which was arranged at 1L continuous. We wonder whether this may be contributing to her chronic headaches, lightheadedness and dizziness. 2. Mediatation Regimen: she was discharged on invokana 100mg, no longer on insulin. Lisinopril also held at time of discharge with BPs WNL. She has Rx for Omeprazole QD x3mo as well as Lovenox 40 BID x10 days. Primary Diagnosis: morbid obesity (Body mass index is 52.31 kg/(m^2).) Secondary Diagnosis: Patient Active Problem List Diagnosis Code ??? AJITH (obstructive sleep apnea) G47.33 ??? Preoperative Class IV obesity with BMI of 50.0-59.9, adult E66.01, Z68.43 ??? Diabetes mellitus E11.9 ??? Fibromyalgia M79.7 ??? Paratubal cyst N83.8 ??? Hyperlipidemia E78.5 ??? Right knee pain M25.561 ??? Head injury, closed S09.90XA ??? Neurodermatitis L28.0 ??? Clavus L84 ??? History of basal cell cancer Z85.828 ??? Actinic keratosis L57.0 ??? Seborrheic keratosis L82.1 ??? Accessory ovary Q50.31 ??? Chronic diarrhea K52.9 ??? Abdominal pain R10.9 ??? Depression F32.9 ??? Hypothyroidism E03.9 ??? Migraine G43.909 ??? Allergic rhinitis J30.9 ??? Asthma J45.909 ??? Edema of lower extremity R60.0 ??? Essential hypertension I10 ??? Urinary incontinence R32 ??? TBI (traumatic brain injury) S06.9X9A ??? Obesity E66.9 Operations and Procedures: Procedure(s) with comments: @LAPAROSCOPY, SURG/GASTRIC RESTRICTIVE PROC, LONGITUDINAL GASTRECTOMY - LATEX VALDEZ REPLACED WITH [id number]-TP HOVERMATT OR BARIATRIC SLIPP ENDOSCOPY, UPPER GI, DIAGNOSTIC, WITH OR WITHOUT SPECIMENS Surgeons: Surgeon(s) and Role: * Deven Goodwin MD - Primary * Cinthya Alva MD - Fellow History of Present Illness (per Dr. Goodwin's clinic H&P 08/17/16): Ruth Galeana is a 51-year-old female who is here to discuss bariatric surgery. At this point, she has had full participation in the [facility] program and meets NIH criteria for weight loss surgery. She is interested in a Escobar-en-Y gastric bypass. I spent 25 minutes with her today, the entire time in suig-of-bitg conversation regarding risks and benefits of different types of bariatric surgery. I am comfortable with her decision to undergo a Escobar-en-Y gastric bypass. She does have several prior abdominal surgeries, which may or may not make intraabdominal adhesions prohibitive for the Escobar-en-Y. Also, she has a very elevated BMI as well as a large abdomen, which can also make bringing the Escobar limb up to the stomach pouch very difficult with regard to tension. I told her that both of these can be hard to predict by looking at the patient preop and would be determined at the time of surgery. At the time of the surgery, if I felt the safe thing would be to proceed with a gastric sleeve, I would do that rather than put her at excessive risk with a gastric bypass. She seems comfortable with my intraoperative decision making, and we will plan on a Escobar-en-Y gastric bypass with possible sleeve. Either way, we also will do an upper GI endoscopy at the conclusion to rule out leak from the stomach pouch. I went over with her in detail the risk section of the [facility] bariatric surgery manual for both gastric bypass as well as gastric sleeve. Overall, she seems well informed and would like to proceed. I also gave her a copy of the preop diet with instructions for its compliance and that in my opinion if someone was not compliant and we cannot adequately visualize the top of the stomach we would not be able to proceed with surgery that day. In fact, I personally no longer would offer a second operation, as I do think we have solved this liver hypertrophy problem with the preop diet and noncompliance would be met with nonsurgery. At this point, we will go ahead and schedule her for surgery at some point in the near future. Hospital Course: Ruth Galeana is a 51 y.o. female who was admitted on 09/12/2016 for bariatric surgery. Her operative course was notable for significant adhesions in the pelvis as well as a large liver making abdominal exposure a challenge and thus, for the reasons discussed preoperatively and noted above, gastric sleeve was performed. On POD#1 she was started on Stage I (clears) diet which she tolerated without issue and so was advanced to Stage II (full liquid) diet. On POD#2 Endocrinology was consulted given her preoperative insulin requirement of 100 units QID - it was recommended she start on Invokana 100mg QD, no insulin. On POD#3 she was having persistent hypoxemia both at rest and with ambulation and so a CTPE was obtained which was negative. She qualified for and will be discharged on home oxygen. On POD#3 she was tolerating a diet without issue, passing flatus, pain was controlled and all vital signs within normal limits and she was deemed appropriate for discharge to home. She will follow up with Surgery and Endocrine 12/ and knows to follow up with her PCP regarding her oxygen requirement as well as new medicationregimen within 7-10 days. Vital Signs Last value Range last 24hrs Temperature Temp: 37.2 ??C (99 ??F) Temp: [36.8 ??C (98.2 ??F)-37.2 ??C (99 ??F)] Heart Rate Heart Rate: 73 Heart Rate: -- Blood Pressure BP: 111/61 BP: (111-134)/(61-71) Respiratory Rate Resp: 16 Resp: [16-20] SpO2 SpO2: 95 % SpO2: [81 %-96 %] Pertinent Lab Data: Recent Labs 09/15/16 0846 09/13/16 0517 WBC 7.5 9.6* HGB 13.1 13.0 HCT 38.2 37.8 PLATELET 196 197 Recent Labs 09/15/16 0846 09/13/16 0517 NA 137 139 K 3.6 4.1 CL 96* 100 CO2 27 27 BUN 7* 13 CREATININE 0.81 0.79 GLUCOSE 209* 192 CALCIUM 9.6 9.7 MAGNESIUM 0.81 0.88 PHOS 2.7 3.3 Physical Exam: Gen: awake, alert, appropriately interactive Cardio: regular rate and rhythm Pulm: unlabored on NC, mildly shallow, CTAB no wheeze/rhonchi ABD: obese, appropriately tender around port sites with steris/bandaids c/d/i no drainage or collection, softly compressible throughout Ext: warm, dry, palpable peripheral pulses Imaging: CTPE 09/15: FINDINGS: Pulmonary arteries:Adequate enhancement of pulmonary arteries.No pulmonary arterial filling defects. Other cardiovascular structures: No significant findings. Pulmonary parenchyma: Low lung volumes with bibasilar atelectasis. Stable perifissural nodule along LEFT major fissure. Airways: No significant findings. Pleura: No significant findings. Lymph nodes:No significant findings. Other mediastinal structures: No significant findings. Upper abdomen: Diffuse low density of liver unchanged. Skeletal structures: No significant findings. ?? IMPRESSION No pulmonary embolism identified. ?? Condition at discharge: Stable Mental Status: awake and alert, oriented x 3 Medications: Your Medications Notice Some of the medications listed here do not show instructions, such as how often to take the medication. Ask your doctor or nurse how to use these medications. Specifically ask about this and similar medications: CALCIUM CARBONATE (TUMS ORAL) New Medications Dose Details canagliflozin 100 mg Tab Take 100 mg by mouth daily. 100 mg Quantity: 60 tablet Refills: 3 enoxaparin 40 mg/0.4 mL Syrg Commonly known as: LOVENOX Inject 0.4 mLs subcutaneously 2 times daily for 10 days. 40 mg Quantity: 20 Syringe Refills: 0 HYDROmorphone 2 mg Tab Commonly known as: DILAUDID Take 1-2 tablets by mouth every 4 hours as needed for Pain. 2-4 mg Quantity: 15 tablet Refills: 0 ondansetron 4 mg Tbdl Commonly known as: ZOFRAN-ODT Take 1 tablet by mouth every 8 hours as needed for Nausea. 4 mg Quantity: 10 tablet Refills: 0 traMADol 50 mg Tab Commonly known as: ULTRAM Take 1 tablet by mouth every 6 hours as needed for Pain. 50 mg Quantity: 20 tablet Refills: 0 Continued medications with new dosing Dose Details gabapentin 100 mg Cap Commonly known as: NEURONTIN TAKE ONE CAPSULE BY MOUTH THREE TIMES A DAY What changed: See the new instructions. Quantity: 90 capsule Refills: 3 Continued medications, unchanged Dose Details atenolol 50 mg Tab Commonly known as: TENORMIN 75MG = 1 1/2 Tablet(s), PO, Once daily Refills: 0 cetirizine 10 mg Tab Commonly known as: ZyrTEC Take 10 mg by mouth daily as needed. 10 mg Refills: 0 dicyclomine 10 mg Cap Commonly known as: BENTYL TAKE 1 CAPSULE BY MOUTH EVERY 6 HOURS NEEDED Quantity: 120 capsule Refills: 6 ergocalciferol 50,000 unit Cap Commonly known as: ERGOCALCIFEROL Take 1 capsule by mouth once a week for 24 doses. 12049 Units Quantity: 12 capsule Refills: 1 * levothyroxine 50 mcg Tab Commonly known as: SYNTHROID Take 50 mcg by mouth daily. 50 mcg Refills: 0 * levothyroxine 200 mcg Tab Commonly known as: SYNTHROID Take 200 mcg by mouth daily. 200 mcg Refills: 0 lidocaine 5 % Ptmd Commonly known as: LIDODERM Place 3 patches onto the skin every 12 hours. PRN 3 patch Refills: 0 omeprazole 20 mg Cpdr Commonly known as: PriLOSEC Take 1 capsule by mouth daily for 90 days. Start at discharge to prevent ulcer. Take 30 minutes before breakfast 20 mg Quantity: 90 capsule Refills: 0 rosuvastatin 20 mg Tab Commonly known as: CRESTOR Take 20 mg by mouth daily. 20 mg Refills: 0 SYMBICORT 160-4.5 mcg/actuation Hfaa Inhale into the lungs as needed. Generic drug: budesonide-formoterol Refills: 0 TUMS ORAL ?nk?wn!?? Refills: 0 * Notice: This list has 2 medication(s) that are the same as other medications prescribed for you. Read the directions carefully, and ask your doctor or other care provider to review them with you. STOPPED Medications BD INSULIN SYRINGE ULTRA-FINE 0.3 mL 31 gauge x 5/16 Syrg Generic drug: Insulin Syringe-Needle U-100 blood sugar diagnostic strips Strp Commonly known as: ONETOUCH ULTRA TEST insulin needles (disposable) 32 gauge x 5/32 Ndle insulin regular hum U-500 conc 500 unit/mL (3 mL) Inpn lisinopril 40 mg Tab Commonly known as: PRINIVIL;ZESTRIL loperamide 2 mg Tab Commonly known as: IMODIUM A-D multivitamin Tab Commonly known as: THERAGRAN nystatin-triamcinolone Crea Commonly known as: MYCOLOG II ONE TOUCH DELICA LANCETS MISC Disposition: Home Allergies: Allergies Allergen Reactions ??? Latex Rash ??? Amlodipine Other (See Comments) Suicidal thoughts ??? Imitrex [Sumatriptan Succinate] Suicidal thoughts ??? Lyrica [Pregabalin] Other (See Comments) Intolerance ??? Metformin Diarrhea ??? Prozac [Fluoxetine] Anxiety ??? Sulfa (Sulfonamide Antibiotics) ??? Tramadol Anxiety Outpatient Services/Studies: No discharge procedures on file. Scheduled Appointments: Future Appointments and Orders Future Appointments Provider Department Dept Phone 10/05/2016 10:00 AM Lluvia Vargas [employer] Endocrinology [phone] 10/05/2016 11:20 AM Luisa Herrmann LD; Deven Goodwin MD General Surgery [phone] 01/04/2017 9:00 AM Luisa Herrmann LD; Lotus Busby APRN General Surgery [phone] Future Orders Complete By Expires HOME OXYGEN [EQ184 Custom] As directed Process Instructions: Check with vendor to see if additional forms need to be completed. You must submit a copy of the following documents with this Order: 1 - Official results of Pulse Oximetry at Rest and with Exercise that are less than 180 days old 2 - Official results of Nocturnal testing (if performed) 3 - Signed and dated rlgu-wc-pwhi evaluation documenting the need for Oxygen Scheduling Instructions: Comments: Ruth Galeana Diagnosis: idiopathic Duration of use: 1 year Frequency of use: continuous PECOS enrolled: Yes PECOS # [id number] Questions: Vendor Name/Contact information: [employer] Rate (LPM): 1 Route: Nasal Hours per day of useage: 24 # months service is needed (99= lifetime): 12 Portable needed: Yes SPO2 performed on Room Air?: SPO2 performed with Supplemental Oxygen?: Nocturnal testing performed?: Oxygen Conserving Device (OCD) needed?: Instructions Given to Patient at Discharge: Patient Instructions BARIATRIC SURGERY DISCHARGE INFORMATION CONTACT INFORMATION: [phone] Surgeon: Dr. Goodwin [phone] Electronic Commerce Specialist: [phone] (Monday through Monday, 8:00 AM -5:00 PM) Dietitians: [phone] Non-business hours: [phone], ask for general surgeon research professional FOR EMERGENCIES: CALL 911 (trouble breathing, chest pain, severe abdominal pain or rapid heart beat >120 (30 beats in 15 seconds) CALL FOR ANY OF THE FOLLOWING: ??? Signs and symptoms of infection such as: o Redness or swelling o Drainage or bleeding o Fever over 100.5 F o Increased pain or discomfort at the incision site ??? Persistent vomiting or if you are unable to keep food or fluids down in a 24 hour period. ??? Signs and symptoms of a blood clot: new leg swelling or redness, pain in leg, shortness of breath ??? Any concerns, such as problems with urination, bowels, bleeding, pain or leg swelling BATHING AND WOUND CARE: You may shower at 2 days post-op. ??? Wash incisions with soap, water rinse, pat dry and leave open to air if not draining. ??? Steri-strips may be removed or will fall off in 7-10 days. Pat dry if they become wet. ??? Do not soak wound for 2 weeks after laparoscopic surgery and 3 weeks after open surgery. ACTIVITY, LIFTING AND DRIVING: Daily walking is encouraged as tolerated. ??? For laparoscopic surgery: there are no lifting restrictions. Lift when you feel comfortable. ??? For all patients: Do not drive for 2 weeks. After [address] when comfortable and not takingnarcotic pain medicine. DIET: follow Stage II diet for two weeks. ??? Log intake. Daily goals are: 48-64 ounces of fluids and 60 grams of protein. MEDICATIONS: For 2 WEEKS ONLY: LARGE pills (bigger than the size of a calcium pill) must be crushed,or broken into small pieces. ??? Pills smaller than the size of a Tylenol DO NOT need to be crushed. Not all medications can be crushed. Check with your pharmacist first. BLOOD CLOT PREVENTION: You WILL be discharged on enoxaparin injections twice daily for 10 days to prevent blood clots. Be active, walk at least 4 times a day and do blood clot prevention exercises in your handbook on page 82. The prescription is sent to [facility] IF YOU ARE TREATED FOR OBSTRUCTIVE SLEEP APNEA: use your CPAP/ BIPAP after surgery at night and whennapping. The effect of anesthesia and pain medication can decrease respirations. Follow up with the Sleep Center if pressure seems to be too high. ULCER PREVENTION: omeprazole 20 mg daily (or any medication you may currently take for heartburn/reflux) must be taken for 3 MONTHS after surgery: Take this to prevent ulcers, even if you do not have heartburn. The prescription may be refilled after the 3 month course if you have heartburn or reflux. ?? Omeprazole capsules contain enteric-coated, delayed-release granules. These granules should not be chewed or crushed. The capsules can be opened and the enteric-coated granules sprinkled on applesauce or yogurt, given with apple juice, or swallowed immediately with water. Prepare just prior to admin istration. Administer entire dosage. ?? If your insurer does not cover omeprazole, or similar medications such as pantoprazole, please purchase over the counter. PAIN MEDICATION: Take only if needed -Take the medication exactly as it is prescribed and make sure to read all instructions that come with the medication. -Over the next couple of days you should be requiring less of this medication to control your pain, so that eventually you will not need any at all. You do not have to take all of the medication that was prescribed, you may have some left over. -Use tylenol if you are in pain, and if you are still in pain after tylenol you may use the pain medication -Taking more than the prescribed amount of medication or using with alcohol or other drugs can causeyou to stop breathing resulting in coma, brain damage or . -Opioids can slow reaction time, cause drowsiness or cloud judgement. No driving for 8 hours after any dose of opioid pain medication if one was prescribed for you. -Using this drug may cause addiction. While addiction is more common in people with a personal or family history of addiction, it can occur in anyone. -Opioids are at risk of being diverted by anyone with access to your home. Opioids should be stored in a safe and secure place, such as a locked cabinet or safe. -Unused opioids should be disposed of appropriately. They may be returned to a take-back location, or mixed with a small amount of water and poured over an undesirable waste such as used coffee groundsor cat litter. -Please note that most pain medications can cause constipation. You may use a stool softener such asMiralax to prevent this. MEDICATIONS TO AVOID FOR TWO MONTHS AFTER SURGERY: ??? Avoid anti-inflammatory non-steroidal medications, such as Advil, Aleve, etc. Refer to Medications that may increase the risk of bleeding in handbook. ??? If you take aspirin for your heart or to prevent strokes, continue as prescribed. PATIENTS WITH DIABETES: Check blood sugars four times a day, fasting, 2 hours after meals and if unwell. For blood sugar less than 150, do not restart diabetes medications. ??? If you see the diabetes team during your hospital stay, follow their diabetes care recommendations ??? Patients on oral diabetic medication: If blood sugar is over 200 on more than 3 rechecks, call your primary care physician or diabetic specialist for specific recommendations, or as recommended at discharge. ??? For patients on insulin and oral diabetic medications: If blood sugar is consistently under 200,you will not likely need medication. If blood sugar is over 200 on a few rechecks, call your primarycare doctor or diabetic specialist for specific recommendations or as recommended at discharge. ??? Follow up with primary care provider or youth care specialist in 1-2 weeks. Bring meter to appointments. PATIENTS WITH HIGH BLOOD PRESSURE: Monitor your blood pressure regularly. ??? If you feel dizzy and have been drinking 48-64 ounces of fluid, have your blood pressure checked. ??? If your blood pressure is low, call your primary care provider. Keep a log to bring to your PCP appointments. PATIENTS WHO TAKE DIURETICS (MEDICATION FOR SWELLING WATER PILLS): ??? Check with your surgical team prior to discharge for instructions. In general, this medication can be decreased or stopped after surgery, since it may cause dehydration. ??? Monitor closely for increased swelling after discharge, and call your primary care doctor if swelling increases. PATIENTS ON ANTI-DEPRESSANT OR MENTAL HEALTH MEDICATIONS: Do not stop or decrease your medications unless advised. Ongoing counseling is encouraged. VITAMIN AND MINERAL SUPPLEMENTATION: Vitamin B12 500 mcg pill daily. Complete multivitamin w/ minerals Chewable, one pill twice daily. After 2 weeks may take regular vitamin pills. Calcium Calcium citrate 600 mg with vitamin D 400 units twice a day between meals. Iron with vitamin C Take iron as instructed per Handbook- (only if you have anemia, iron deficiency or regular menses) FOLLOW-UP CARE: ??? See your PCP 10-14 days after surgery for wound and vital signs check. ??? See your surgeon and dietitian at 3 weeks after surgery ??? See the dietitian and nurse practitioner at 4, 12, 18, and 24 months, then yearly for life. WOMEN OF CHILDBEARING AGE: Fertility may increase with weight loss. Avoid for 18-24 months after surgery. Condoms alone are not acceptable as a form of control. Do not take control pills for the first monthafter surgery. General Instructions None Future Appointments and Orders Future Appointments Provider Department Dept Phone 10/05/2016 10:00 AM Lluvia Vargas APRN Endocrinology [phone] 10/05/2016 11:20 AM Luisa Herrmann LD; Deven Goodwin MD General Surgery [phone] 01/04/2017 9:00 AM Luisa Herrmann LD; Lotus Busby APRN General Surgery [phone] Future Orders Complete By Expires HOME OXYGEN [EQ184 Custom] As directed Process Instructions: Check with vendor to see if additional forms need to be completed. You must submit a copy of the following documents with this Order: 1 - Official results of Pulse Oximetry at Rest and with Exercise that are less than 180 days old 2 - Official results of Nocturnal testing (if performed) 3 - Signed and dated ecvo-ji-wniq evaluation documenting the need for Oxygen Scheduling Instructions: Comments: Ruth Galeana Diagnosis: idiopathic Duration of use: 1 year Frequency of use: continuous PECOS enrolled: Yes PECOS # [id number] Questions: Vendor Name/Contact information: [employer] Rate (LPM): 1 Route: Nasal Hours per day of useage: 24 # months service is needed (99= lifetime): 12 Portable needed: Yes SPO2 performed on Room Air?: SPO2 performed with Supplemental Oxygen?: Nocturnal testing performed?: Oxygen Conserving Device (OCD) needed?: Signed: DYLAN BRYANT MD 09/15/2016 Primary Treadwell Physician: Zhanna Francois, [employer] [phone], [facility] / [facility] [id number] documented in this encounter Discharge Instructions Patient InstructionsTrDylan watts MD - 09/12/2016 1:52 PM EST BARIATRIC SURGERY DISCHARGE INFORMATION CONTACT INFORMATION: [phone] Surgeon: Dr. Goodwin [phone] Electronic Commerce Specialist: [phone] (Monday through Monday, 8:00 AM -5:00 PM) Dietitians: [phone] Non-business hours: [phone], ask for general surgeon research professional FOR EMERGENCIES: CALL 911 (trouble breathing, chest pain, severe abdominal pain or rapid heart beat >120 (30 beats in 15 seconds) CALL FOR ANY OF THE FOLLOWING: ??? Signs and symptoms of infection such as: o Redness or swelling o Drainage or bleeding o Fever over 100.5 F o Increased pain or discomfort at the incision site ??? Persistent vomiting or if you are unable to keep food or fluids down in a 24 hour period. ??? Signs and symptoms of a blood clot: new leg swelling or redness, pain in leg, shortness of breath ??? Any concerns, such as problems with urination, bowels, bleeding, pain or leg swelling BATHING AND WOUND CARE: You may shower at 2 days post-op. ??? Wash incisions with soap, water rinse, pat dry and leave open to air if not draining. ??? Steri-strips may be removed or will fall off in 7-10 days. Pat dry if they become wet. ??? Do not soak wound for 2 weeks after laparoscopic surgery and 3 weeks after open surgery. ACTIVITY, LIFTING AND DRIVING: Daily walking is encouraged as tolerated. ??? For laparoscopic surgery: there are no lifting restrictions. Lift when you feel comfortable. ??? For all patients: Do not drive for 2 weeks. After [address] when comfortable and not takingnarcotic pain medicine. DIET: follow Stage II diet for two weeks. ??? Log intake. Daily goals are: 48-64 ounces of fluids and 60 grams of protein. MEDICATIONS: For 2 WEEKS ONLY: LARGE pills (bigger than the size of a calcium pill) must be crushed,or broken into small pieces. ??? Pills smaller than the size of a Tylenol DO NOT need to be crushed. Not all medications can be crushed. Check with your pharmacist first. BLOOD CLOT PREVENTION: You WILL be discharged on enoxaparin injections twice daily for 10 days to prevent blood clots. Be active, walk at least 4 times a day and do blood clot prevention exercises in your handbook on page 82. The prescription is sent to [facility] IF YOU ARE TREATED FOR OBSTRUCTIVE SLEEP APNEA: use your CPAP/ BIPAP after surgery at night and whennapping. The effect of anesthesia and pain medication can decrease respirations. Follow up with the [facility] if pressure seems to be too high. ULCER PREVENTION: omeprazole 20 mg daily (or any medication you may currently take for heartburn/reflux) must be taken for 3 MONTHS after surgery: Take this to prevent ulcers, even if you do not have heartburn. The prescription may be refilled after the 3 month course if you have heartburn or reflux. ?? Omeprazole capsules contain enteric-coated, delayed-release granules. These granules should not be chewed or crushed. The capsules can be opened and the enteric-coated granules sprinkled on applesauce or yogurt, given with apple juice, or swallowed immediately with water. Prepare just prior to admin istration. Administer entire dosage. ?? If your insurer does not cover omeprazole, or similar medications such as pantoprazole, please purchase over the counter. PAIN MEDICATION: Take only if needed -Take the medication exactly as it is prescribed and make sure to read all instructions that come with the medication. -Over the next couple of days you should be requiring less of this medication to control your pain, so that eventually you will not need any at all. You do not have to take all of the medication that was prescribed, you may have some left over. -Use tylenol if you are in pain, and if you are still in pain after tylenol you may use the pain medication -Taking more than the prescribed amount of medication or using with alcohol or other drugs can causeyou to stop breathing resulting in coma, brain damage or . -Opioids can slow reaction time, cause drowsiness or cloud judgement. No driving for 8 hours after any dose of opioid pain medication if one was prescribed for you. -Using this drug may cause addiction. While addiction is more common in people with a personal or family history of addiction, it can occur in anyone. -Opioids are at risk of being diverted by anyone with access to your home. Opioids should be stored in a safe and secure place, such as a locked cabinet or safe. -Unused opioids should be disposed of appropriately. They may be returned to a take-back location, or mixed with a small amount of water and poured over an undesirable waste such as used coffee groundsor cat litter. -Please note that most pain medications can cause constipation. You may use a stool softener such asMiralax to prevent this. MEDICATIONS TO AVOID FOR TWO MONTHS AFTER SURGERY: ??? Avoid anti-inflammatory non-steroidal medications, such as Advil, Aleve, etc. Refer to Medications that may increase the risk of bleeding in handbook. ??? If you take aspirin for your heart or to prevent strokes, continue as prescribed. PATIENTS WITH DIABETES: Check blood sugars four times a day, fasting, 2 hours after meals and if unwell. For blood sugar less than 150, do not restart diabetes medications. ??? If you see the diabetes team during your hospital stay, follow their diabetes care recommendations ??? Patients on oral diabetic medication: If blood sugar is over 200 on more than 3 rechecks, call your primary care physician or diabetic specialist for specific recommendations, or as recommended at discharge. ??? For patients on insulin and oral diabetic medications: If blood sugar is consistently under 200,you will not likely need medication. If blood sugar is over 200 on a few rechecks, call your primarycare doctor or diabetic specialist for specific recommendations or as recommended at discharge. ??? Follow up with primary care provider or youth care specialist in 1-2 weeks. Bring meter to appointments. PATIENTS WITH HIGH BLOOD PRESSURE: Monitor your blood pressure regularly. ??? If you feel dizzy and have been drinking 48-64 ounces of fluid, have your blood pressure checked. ??? If your blood pressure is low, call your primary care provider. Keep a log to bring to your PCP appointments. PATIENTS WHO TAKE DIURETICS (MEDICATION FOR SWELLING WATER PILLS): ??? Check with your surgical team prior to discharge for instructions. In general, this medication can be decreased or stopped after surgery, since it may cause dehydration. ??? Monitor closely for increased swelling after discharge, and call your primary care doctor if swelling increases. PATIENTS ON ANTI-DEPRESSANT OR MENTAL HEALTH MEDICATIONS: Do not stop or decrease your medications unless advised. Ongoing counseling is encouraged. VITAMIN AND MINERAL SUPPLEMENTATION: Vitamin B12 500 mcg pill daily. Complete multivitamin w/ minerals Chewable, one pill twice daily. After 2 weeks may take regular vitamin pills. Calcium Calcium citrate 600 mg with vitamin D 400 units twice a day between meals. Iron with vitamin C Take iron as instructed per Handbook- (only if you have anemia, iron deficiency or regular menses) FOLLOW-UP CARE: ??? See your PCP 10-14 days after surgery for wound and vital signs check. ??? See your surgeon and dietitian at 3 weeks after surgery ??? See the dietitian and nurse practitioner at 4, 12, 18, and 24 months, then yearly for life. WOMEN OF CHILDBEARING AGE: Fertility may increase with weight loss. Avoid for 18-24 months after surgery. Condoms alone are not acceptable as a form of control. Do not take control pills for the first monthafter surgery. AttachmentsThe following attachments cannot be sent through Care Everywhere. ENOXAPARIN (LOVENOX) (BULGARIAN)documented in this encounter Medications at Time of Discharge Medication Sig Dispensed Refills Start Date End Date VITAMIN D 1,000 unit TAKE ONE TABLET BY 3 07/09/ 016 Tablet MOUTH EVERY DAY gabapentin (NEURONTIN) TAKE ONE CAPSULE BY 90 capsule 3 06/2016 100 mg Capsule MOUTH THREE TIMES A DAY levothyroxine Take 200 mcg by mouth 0 (SYNTHROID) 200 mcg daily. tablet rosuvastatin (CRESTOR) Take 20 mg by mouth 0 20 mg tablet daily. Reported on 10/05/2016 Budesonide-Formoterol Inhale into the lungs 0 (SYMBICORT) 160-4.5 as needed. Reported mcg/Actuation HFAA on 10/05/2016 cetirizine (ZYRTEC) 10 Take 10 mg by mouth 0 mg tablet daily as needed. Reported on 10/05/2016 lidocaine (LIDODERM) 5 Place 3 patches onto 0 %(700 mg/patch) the skin every 12 hours. Reported on 10/05/2016 atenolol (TENORMIN) 50 75MG = 1 10/17 0 04/24/2007 mg tablet Tablet(s), PO, Once daily HYDROmorphone Take 1-2 tablets by 15 tablet 0 09/15/2016 (DILAUDID) 2 mg Tablet mouth every 4 hours as needed for Pain. traMADol (ULTRAM) 50 Take 1 tablet by 20 tablet 0 6 09/18/2019 mg Tablet mouth every 6 hours as needed for Pain. ondansetron Take 1 tablet by 10 tablet 0 09/15/2016 019 (ZOFRAN-ODT) 4 mg mouth every 8 hours Tablet, Rapid Dissolve as needed for Nausea. canagliflozin 100 mg Take 100 mg by mouth 60 tablet 3 09/1509/18/2019 Tablet daily. enoxaparin (LOVENOX) Inject 0.4 mLs 20 Syringe 0 09/13/2016 09/23/2016 40 mg/0.4 mL Syringe subcutaneously 2 times daily for 10 days. omeprazole (PRILOSEC) Take 1 capsule by 90 capsule 0 016 12/04/2016 20 mg Capsule, Delayed mouth daily for 90 Release(E.C.)Indicatio days. Start at ns: Encounter for discharge to prevent pre-bariatric surgery ulcer. Take 30 counseling and minutes before education, Morbid breakfast obesity with BMI of 50.0-59.9, adult ergocalciferol Take 1 capsule by 12 capsule 1 07/25/201612/2016 (ERGOCALCIFEROL) mouth once a week for 50,000 unit 24 doses. CapsuleIndications: Vitamin D deficiency dicyclomine (BENTYL) TAKE 1 CAPSULE BY 120 capsule 6 015 09/18/2019 10 mg Capsule MOUTH EVERY 6 HOURS NEEDED levothyroxine Take 50 mcg by mouth 0 1 11/19/2018 (SYNTHROID) 50 mcg daily. tablet CALCIUM CARBONATE 0 04/24/2007 019 (TUMS ORAL) documented as of this encounter Progress Notes Amaris Longoria RN - 09/15/2016 5:58 PM EST RN-PIPE OUT WORKER, Office of Care Management Amaris Longoria RN,BSN, [facility] Pager # [phone] Nursing alerted me that Oxygen has been delivered for discharge to home, patient needs walker - [facility] has available on delivery truck. Orders written. Dr. Yost asked to sign order. Will ask resource development manager to send order to Vivi Grajeda in am. Dylan Sneed MD - 09/15/2016 4:37 PM EST GENERAL SURGERY (Minimally Invasive Surgery) INPATIENT PROGRESS NOTE ID: Ruth Galeana is a 51 y.o. female with a history of unsuccessful long-term weight loss efforts formorbid obesity status-post laparoscopic sleeve gastrectomy POD 3 (09/12/2016). 24HR EVENTS - Episode of severe headache last evening, controlled with acetaminophen. Headache began on the leftside of her head and traveled the bilateral forehead area; patient reports that this is very similarto the headaches she has experienced since her TBI - Oxygen saturation continues to be in mid-80's on room air; mid-90's on 1L/min nasal canula and CPAP SUBJECTIVE - Pain adequately controlled - Tolerating full liquids - Patting flatus; denies bowel movements - Voiding independently - Out of bed and ambulating on the floor - Denies nausea, vomiting, fever, chills, dizziness, chest pain, or shortness of breath OBJECTIVE VITALS Last value Range last 24hrs Temperature Temp: 37.2 ??C (99 ??F) Temp: [36.8 ??C (98.2 ??F)-37.2 ??C (99 ??F)] Heart Rate Heart Rate: 73 Heart Rate: -- Blood Pressure BP: 111/61 BP: (111-134)/(61-71) Respiratory Rate Resp: 16 Resp: [16-20] SpO2 SpO2: 95 % SpO2: [81 %-96 %] I/O last 3 completed shifts: In: 2860 [P.O.:2860] Out: 5575 [Urine:5575] I/O this shift: In: 720 [P.O.:720] Out: 500 [Urine:500] PHYSICAL EXAM General: resting comfortably in bed; alert, cooperative, and in no apparent distress Cardiovascular: regular rate and rhythm; no murmurs, rubs, or gallops; no carotid bruits appreciated Pulmonary: non-labored breathing on 1L/min NC; lung ernst clear to auscultation bilaterally Abdomen: mildly distended; tympanic to percussion on the upper quadrants without guarding; bowel sounds appreciated; non-tender to palpation; incision sites underneath dry non-bloody dressing Peripheral Access: no erythema or signs of infection Extremities: warm and well-perfused; SCDs on; no edema; no calf tenderness ASSESSMENT / PLAN Ruth Galeana is a 51 y.o. female with a history of unsuccessful long-term weight loss efforts formorbid obesity status-post laparoscopic sleeve gastrectomy POD 3 (09/12/2016). Recovering as expected with pain adequately controlled. Patient's oxygen saturation remains in mid-80's on room air despite adequate inspiratory spirometer use; oxygen saturation improves when on 1L/min nasal canula. Thoughepisode of headache may be caused by hypoxemia, the episode occurred when she was on her nasal canula with oxygen saturation in the mid-90's - suggesting they may be independent events. The patient also reports that these headaches are not new and have been occurring since her traumatic brain injury. Patient states that her prior care providers have also noticed that her oxygen saturation has been low in prior hospital visits. Patient has clinically improved since her operation and has shown no labored breathing on room air, suggesting perhaps she is at her baseline health. Patient agrees she is ready for discharge today, and because her oxygen saturation on room air is less than 88%, she will return home with oxygen in addition to her home CPAP. Pending oxygen saturation and clinical appearance,aim for discharge today. NOTE: Vital Sign respiratory rate of 0 is inaccurate. NEURO: Scheduled acetaminophen and PO narcotic pain medications (Hydromorphone) with IV for breakthrough; consider neurology follow-up appointment for headache episodes CV: Currently stable on home medications PULM: Stable on 1L/min NC or CPAP when sleeping; saturating in mid-80's on room air; provide oxygen and instructions for use upon discharge GI: Flatus reassuring for return of bowel function; PRN stool stimulants; Pantoprazole 40mg injection QD : Voiding independently; continue monitoring UOP FEN: Continue Stage 2 (full liquid diet), encouraging adequate fluid intake ENDO:POC glucose (161) well-controlled with insulin requirements largely decreased, so follow-up with PCP to manage her Type 2 Diabetes; Levothyroxine 250mg QAM; schedule Ursodiol upon discharge HEME: Hb 09/13/2016 stable (13.0) ID: Afebrile, WBC 09/13/2016 stable (9.6), perioperative antibiotics completed PPX: Enoxaparin 40mg BID, SCDs on, encourage ambulation and inspiratory spirometer use DISPO:Stable on floor status; aim for discharge later today on oxygen. Meet with Screening Technician to seeif insurance will over walker, shower seat, and VNA services. 4-week follow-up appointment with Dr. Goodwin. DYLAN BRYANT MD Landy Roberson RN - 09/15/2016 9:54 AM EST Office of Care Management (OCM) / [employer](CM) Patient feeling better & planning to go home today. MD states O2 desat when O2 removed. RN performed walk test. CM entered shared note with letter of necessity & O2 order pended. Patient opting to use [employer] as vendor since they have office in [facility] & provide CPAP supplies. Need portable unit delivered to patient in [facility] by 2pm for trip home this afternoon. Landy Stevenson RN Case Manager Pager [phone] Dylan Sneed MD - 09/15/2016 9:41 AM EST Patient Name: Ruth Galeana Patient Age: 51 y.o. Birthdate: 1965 Admit date: 09/12/2016 Attending Physician: Deven Goodwin MD Certification of Medical Necessity Form for Home Oxygen Ruth Galeana is requiring HOME OXYGEN due to the diagnosis of hypoxia due to: inadequate ventilation Oxygen is required continuously (X), OR when mobile () and/or at night(). Oxygen saturations documented 09/15/2016 Resting on Room Air: 84% Resting on 1liters of O2: 94% (Please document below the Activity Saturations if Resting saturations are >88% ) Activity on Room Air: 85 % Activity on O2 at 4 liters: 90% O2 Sats collected by: Jennifer Azul RN Mobility: Patient is mobile. (Requiring portable oxygen) Rate: 1L / min Route: nasal canula Vendor Ordered: [place], [place] Office [place], [place] Office [facility] I anticipate that Ruth Galeana will be discharged within 2 days. Dylan Sneed MD - 09/14/2016 9:05 AM EST MIS Progress Note Ruth Galeana is a 51 y.o. female is 2 Days Post-Op s/p sleeve gastrectomy for morbid obesity. S/24 - No acute changes - 720 PO yesterday - Headache improved with Mg and APAP - One episode of dry heaving after ambulating overnight. - Feels okay this morning. Pain controlled. Not actively nauseated. Denies flatus O: Temp: [36.6 ??C (97.9 ??F)-36.7 ??C (98.1 ??F)] Heart Rate: -- Resp: [16-18] BP: (105-118)/(48-50) SpO2: [92 %-98 %] Heart Rate from SPO2: [68 bpm-82 bpm] Intake/Output Summary (Last 24 hours) at 09/14/16 0905 Last data filed at 09/14/16 0800 Gross per 24 hour Intake 2041 ml Output 4600 ml Net -2559 ml Gen: awake, alert, appropriately interactive Cardio: regular rate and rhythm Pulm: unlabored on NC, mildly shallow, CTAB no wheeze/rhonchi ABD: obese, appropriately tender around port sites with steris/bandaids c/d/i no drainage or collection, softly compressible throughout Ext: warm, dry, palpable peripheral pulses A/P: 51 y.o. female is 2 Days Post-Op s/p sleeve gastrectomy for morbid obesity. Continues to progress appropriately. Isolated episode of dry heaving overnight but still tolerating PO, another 360cc this morning; still awaiting ROBF. Plan to engage Endo/DM for insulin recommendations as she came in on 100u QID but required only 12u yesterday. Anticipate d/c late today vs. tomorrow N: PO APAP, Dilaudid 2-4q4 prn, Neurontin. Atenolol 50 C:. HOLD home rosuvastatin and lisinopril P: Advair. Claritin. Home CPAP HS G: Stage II FLD. Compazine/Zofran prns. Protonix. Miralax today F: HLIV. Voiding H: Lovenox 40 QD I: no acute concerns E: Synthroid 250 qAM. sensitive SSI. Endo/DM team consult Dispo: Floor status. D/c late today vs tomorrow DYLAN BRYANT MD 09/14/2016 9:05 AM Dylan Bryant MD - 09/13/2016 7:25 AM EST MIS Progress Note Ruth Galeana is a 51 y.o. female is 1 Day Post-Op s/p sleeve gastrectomy for morbid obesity. S/24 - OR for above. No acute perioperative issues - SC x1 for 800cc overnight. Since voided for 750cc. Getting OOB - Feels well this morning. Denies f/c/cp/sob/n/v. Pain adequately controlled. No flatus or BM O: Temp: [36.8 ??C (98.2 ??F)-37 ??C (98.6 ??F)] Heart Rate: -- Resp: [16] BP: (125)/(63) SpO2: [96 %-99 %] Heart Rate from SPO2: [62 bpm-75 bpm] Intake/Output Summary (Last 24 hours) at 09/13/16 0725 Last data filed at 09/13/16 0630 Gross per 24 hour Intake 3129 ml Output 2028 ml Net 1101 ml Gen: awake, alert, appropriately interactive Cardio: regular rate and rhythm Pulm: unlabored on NC, mildly shallow, CTAB no wheeze/rhonchi ABD: obese, appropriately tender around port sites with steris/bandaids c/d/i no drainage or collection, softly compressible throughout Ext: warm, dry, palpable peripheral pulses A/P: 51 y.o. female is 1 Day Post-Op s/p sleeve gastrectomy for morbid obesity. Progressing well. SC x1 overnight but voiding since. Plan to advance diet as tolerated to Stage II today, d/c PLASTERER MAINTENANCE, HLIV. Will need to monitor BGs closely as resumes diet given ~400u/day preop insulin requirement at home. N: PO APAP, d/c PLASTERER MAINTENANCE, Dilaudid 2q4 prn, Neurontin C: d/c IV metop --> atenolol 50 (home 75). HOLD home rosuvastatin and lisinopril P: Advair. Claritin. Home CPAP HS G: ADAT Stage I --> II. Compazine/Zofran prns. Protonix. F: HLIV. Voiding H: Lovenox 40 QD I: no acute concerns E: Synthroid 250 qAM. sensitive SSI. Low threshold to increase Dispo: Floor status DYLAN BRYANT MD 09/13/2016 7:25 AM Dylan Bryant MD - 09/12/2016 5:35 PM EST MIS Post-Operative Note Ruth Galeana is a 51 y.o. female is Day of Surgery s/p sleeve gastrectomy for morbid obesity. Intraop course notable for significant adhesions in the pelvis as well as a large liver making abdominal exposure a challenge and thus, for the reasons discussed preoperatively, gastric sleeve was performed. No issues in PACU. Patient examined after arriving to floor. She is still somewhat sleepy but interactive and without acute complaints. Endorsing mild epigastrium pressure and nausea, no emesis and pain is well controlled by the PLASTERER MAINTENANCE. Temp: [36 ??C (96.8 ??F)-36.7 ??C (98.1 ??F)] Heart Rate: [62-77] Resp: [15-30] BP: (108-143)/(46-62) SpO2: [91 %-95 %] Heart Rate from SPO2: [68 bpm-88 bpm] Intake/Output Summary (Last 24 hours) at 09/12/16 1744 Last data filed at 09/12/16 1619 Gross per 24 hour Intake 1600 ml Output 78 ml Net 1522 ml Gen: sleepy but easily aroused and interactive, mom at bedside Cardio: regular rate and rhythm Pulm: unlabored on NC, mildly shallow, CTAB no wheeze/rhonchi ABD: obese, appropriately tender around port sites c/d/i no drainage or collection, softly compressible throughout Ext: warm, dry, palpable peripheral pulses No results for input(s): WBC, HGB, HCT, PLATELET, PT, INR, PTT in the last 72 hours. No results for input(s): NA, K, CL, CO2, BUN, CREATININE, GLUCOSE, CALCIUM, MAGNESIUM, PHOS in the last 72 hours. A/P: 51 y.o. female is Day of Surgery s/p sleeve gastrectomy for morbid obesity. No acute postoperative concerns. Due to void. Very high insulin requirement at home but well controlled with minimal insulin while NPO presently. Full plan as follows: N: IV APAP, dPCA (0.2/7/4), Neurontin C: Metop 5q6 IV P: Advair. Claritin. Home CPAP HS G: NPO. Compazine/Zofran prns. Protonix. F: LR @ 100. Due to void H: Lovenox 40 QD I: no acute concerns E: Synthroid 250 qAM. sensitive SSI. Low threshold to increase Dispo: Floor status YDLAN BRYANT MD 09/12/2016 5:44 PM Kvng Piedra RT - 09/12/2016 4:44 PM EST NIV Note NIV Settings: NIV Mode: BiPAP IPAP (cmH20): 16 EPAP (cmH20): 12 Pressure Support (cm H2O): 4 O2 Bleed In (LPM): 4 L/min NIV Interface: Nasal Pillows NIV Measurements: Resp: 16 SpO2: 93 % Skin Assessment: WDL Assessment: Patient seen in PACU and followed to floor for use of home BiPAP. SpO2 was falling to lower 80's, so 4L supplemental O2 was used to bring SpO2 in lower 90's. Plan: Use for sleep documented in this encounter H&P Notes Cinthya Alva MD - 09/12/2016 9:59 AM EST [facility] Department of General Surgery Interval History and Physical Please see clinic H&P dated 09/05/2016. In summary, Ruth Galeana presents today for laparoscopic sleeve gastrectomy. There have been no changes to her history. There were no vitals filed for this visit. On examination, she appears well and in no distress. Head and neck exam reveals equal, reactive pupils and a supple neck. Her chest is clear bilaterally and her heart sounds are normal with no adventitious sounds or murmurs. Her abdomen is soft with no masses or tenderness. Extremity and Neuro exams are grossly normal. A/P: 51 y.o. female who presents today with morbid obesity. Plan for lap sleeve gastrectomy.. Consent signed and dated and placed in chart Perioperative antibiotic scheduled. Ok to proceed with scheduled operation. Cinthya Alva MD 09/12/2016 documented in this encounter Miscellaneous Notes Plan of Care - Suzanne Pace RN - 09/15/2016 7:17 PM EST Problem: Patient Care Overview Goal: Plan of Care Review Outcome: Outcome (s) achieved Date Met: 09/15/16 OUTCOME EVALUATION NOTE: OUTCOME SUMMARY: Pt. Tolerated stage II diet. Pt. Only requiring Tylenol for pain control throughout the day. Unable to wean pt. From oxygen please see the following O2 requirements for resting and with ambulation: Resting on Room Air: 84% Resting on 1liters of O2: 94% Activity on Room Air: 85 % Activity on O2 at 4 liters: 90% CT scan done to R/O PE. Demario teaching complete. Pt. Discharged home on home O2 with [employer] the vendor. Discharge instructions given. All questions answered. IV Dc'd. Pt. Wheeled off floor by staff. Pt's friend transported her home. PLAN MOVING FORWARD Discharged home on O2 INDIVIDUALIZED FALL PREVENTION INTERVENTIONS: Patient-specific fall risk factors per assessment: [current deficits]: none Assistance [level of assistance required for transfers and ambulation]: Standby assist with the walker to ambulate in the [place]. Supervision [direct monitoring required during toileting and ADLs]: Independent after set up Surveillance [continuous indirect monitoring]: mare Bensonful Rounding. Patient-specific fall prevention interventions for sensory deficits provided, if applicable: CPG GOAL OUTCOME EVALUATION: Goal: Fall Prevention-Safe Patient Handling Outcome: Outcome (s) achieved Date Met: 09/15/16 09/15/16 1027 09/15/16 1430 09/15/16 1525 Restraint Interventions Safety Promotion/Fall Prevention activity supervised;safety round/check completed;nonskid shoes/slippers when out of bed -- -- Ko Fall Risk History of Falling 0 -- -- Secondary Diagnosis 15 -- -- Ambulatory Aids 0 -- -- Intravenous Therapy/Heparin/Saline Lock 20 -- -- Gait/Transferring 10 -- -- Mental Status 0 -- -- Score 45 -- -- Activity and Safety Assistive Device -- -- Oxygen OTHER Ko Fall Risk High -- -- Positioning Body Position -- up in chair -- Goal: Infection Control Outcome: Outcome (s) achieved Date Met: 09/15/16 09/15/16 1027 Safety Interventions Isolation Precautions standard precautions maintained Infection Prevention environmental surveillance performed Coping Strategies Supportive Measures active listening utilized;verbalization of feelings encouraged Problem: Nutrition, Imbalanced: Excessive Oral Intake (Pediatric) Goal: Acknowledges the Importance of Weight/Loss Maintenance and Overall Health Patient will demonstrate the desired outcomes by discharge/transition of care. Outcome: Outcome (s) achieved Date Met: 09/15/16 09/15/16 191 Nutrition, Imbalanced: Excessive Oral Intake (Pediatric) Acknowledges the Importance of Weight/Loss Maintenance and Overall Health achieves outcome Goal: Expresses Desire and Motivation to Change Patient will demonstrate the desired outcomes by discharge/transition of care. Outcome: Outcome (s) achieved Date Met: 09/15/16 09/15/161911 Nutrition, Imbalanced: Excessive Oral Intake (Pediatric) Expresses Desire and Motivation to Change achieves outcome Med Student Progress Note - Guido Rincon - 09/15/2016 5:16 AM EST GENERAL SURGERY (Minimally Invasive Surgery) INPATIENT PROGRESS NOTE ID: Ruth Galeana is a 51 y.o. female with a history of unsuccessful long-term weight loss efforts formorbid obesity status-post laparoscopic sleeve gastrectomy POD 3 (09/12/2016). 24HR EVENTS - Episode of severe headache last evening, controlled with acetaminophen. Headache began on the leftside of her head and traveled the bilateral forehead area; patient reports that this is very similarto the headaches she has experienced since her TBI - Oxygen saturation continues to be in mid-80's on room air; mid-90's on 1L/min nasal canula and CPAP SUBJECTIVE - Pain adequately controlled - Tolerating full liquids - Patting flatus; denies bowel movements - Voiding independently - Out of bed and ambulating on the floor - Denies nausea, vomiting, fever, chills, dizziness, chest pain, or shortness of breath OBJECTIVE VITALS Last value Range last 24hrs Temperature Temp: 37.2 ??C (99 ??F) Temp: [36.6 ??C (97.9 ??F)-37.5 ??C (99.5 ??F)] Heart Rate Heart Rate: 73 Heart Rate: -- Blood Pressure BP: 132/69 BP: (118-134)/(50-71) Respiratory Rate Resp: (!) 0 Resp: [0-20] SpO2 SpO2: (!) 84 % SpO2: [84 %-98 %] I/O last 3 completed shifts: In: 3341 [P.O.:2140; I.V.:1201] Out: 6900 [Urine:6900] I/O this shift: In: 960 [P.O.:960] Out: 1100 [Urine:1100] PHYSICAL EXAM General: resting comfortably in bed; alert, cooperative, and in no apparent distress Cardiovascular: regular rate and rhythm; no murmurs, rubs, or gallops; no carotid bruits appreciated Pulmonary: non-labored breathing on 1L/min NC; lung ernst clear to auscultation bilaterally Abdomen: mildly distended; tympanic to percussion on the upper quadrants without guarding; bowel sounds appreciated; non-tender to palpation; incision sites underneath dry non-bloody dressing Peripheral Access: no erythema or signs of infection Extremities: warm and well-perfused; SCDs on; no edema; no calf tenderness ASSESSMENT / PLAN Ruth Galeana is a 51 y.o. female with a history of unsuccessful long-term weight loss efforts formorbid obesity status-post laparoscopic sleeve gastrectomy POD 3 (09/12/2016). Recovering as expected with pain adequately controlled. Patient's oxygen saturation remains in mid-80's on room air despite adequate inspiratory spirometer use; oxygen saturation improves when on 1L/min nasal canula. Thoughepisode of headache may be caused by hypoxemia, the episode occurred when she was on her nasal canula with oxygen saturation in the mid-90's - suggesting they may be independent events. The patient also reports that these headaches are not new and have been occurring since her traumatic brain injury. Patient states that her prior care providers have also noticed that her oxygen saturation has been low in prior hospital visits. Patient has clinically improved since her operation and has shown no labored breathing on room air, suggesting perhaps she is at her baseline health. Patient agrees she is ready for discharge today, and because her oxygen saturation on room air is less than 88%, she will return home with oxygen in addition to her home CPAP. Pending oxygen saturation and clinical appearance,aim for discharge today. NOTE: Vital Sign respiratory rate of 0 is inaccurate. NEURO: Scheduled acetaminophen and PO narcotic pain medications (Hydromorphone) with IV for breakthrough; consider neurology follow-up appointment for headache episodes CV: Currently stable on home medications PULM: Stable on 1L/min NC or CPAP when sleeping; saturating in mid-80's on room air; provide oxygen and instructions for use upon discharge GI: Flatus reassuring for return of bowel function; PRN stool stimulants; Pantoprazole 40mg injection QD : Voiding independently; continue monitoring UOP FEN: Continue Stage 2 (full liquid diet), encouraging adequate fluid intake ENDO:POC glucose (161) well-controlled with insulin requirements largely decreased, so follow-up with PCP to manage her Type 2 Diabetes; Levothyroxine 250mg QAM; schedule Ursodiol upon discharge HEME: Hb 09/13/2016 stable (13.0) ID: Afebrile, WBC 09/13/2016 stable (9.6), perioperative antibiotics completed PPX: Enoxaparin 40mg BID, SCDs on, encourage ambulation and inspiratory spirometer use DISPO:Stable on floor status; aim for discharge later today on oxygen. Meet with Screening Technician to seeif insurance will over walker, shower seat, and VNA services. 4-week follow-up appointment with Dr. Goodwin. Guido Rincon MS3 Plan of Care - Jennifer Azul RN - 09/15/2016 3:58 AM EST Problem: Patient Care Overview Goal: Plan of Care Review Outcome: Ongoing (Interventions Implemented as Appropriate) 09/15/16 0345 Coping/Psychosocial Plan Of Care Reviewed With patient Plan of Care Review Progress progress toward functional goals is gradual Ms Galeana woke up around 2347 and reported nose bleed and slight headache. Tramadol given and appeared to rest for awhile, but at 0217 reported severe headache. Dilaudid 4 mg given and then pt slept. [id number] pt reported that headache had resolved. CPAP on with 1L oxygen, if on RA she desats to the 80s. Voiding adequate amounts. PLAN MOVING FORWARD: Nausea control, headache control, pain control INDIVIDUALIZED FALL PREVENTION INTERVENTIONS: Patient-specific fall risk factors per assessment: [current deficits]: lines Assistance [level of assistance required for transfers and ambulation]: Stand by Supervision [direct monitoring required during toileting and ADLs]: Independent in restroom Surveillance [continuous indirect monitoring]: Masimo, purposeful rounding Patient-specific fall prevention interventions for sensory deficits provided, if applicable: [X] Yeslighting Consult Note - Neo Tong MD - 09/14/2016 6:48 PM EST Images from the original note were not included. Diabetes Management Team Inpatient Consult Date of Consultation: 09/14/2016 Consult Requested by: Dr. Alva Reason for Consultation: Ruth Galeana is a 51 y.o. years old female with PMH significant for [id number] morbid obesity who was admitted on 09/12/2016 currently being treated for bariatric surgery. Sheis currently POD 2 today, and her insulin requirement dropped from 300 u/d preop to 6-12u/d post op.We are being consulted to assist with diabetes management and to provide a review of nursing home diabetes care. Diabetes History: Ruth Galeana has had type 2 diabetes for 11 years. She had GDM prior to the onset of T2DM. She has been managed by [facility] [place] with an A1c of 7.7%. Current outpatient diabetes regimen: Medications: U500 100u tid Most recent HA1c Ref. Range 04/28/2015 13:37 07/22/2016 08:27 Hemoglobin A1C Latest Ref Range: 4.3 - 5.6 % 8.4 (H) 7.7 (H) Preadmission diet is: pre-op diet (low carb, high protein) Typical exercise regimen is minimal Current Hospital Diabetes Care: Medications: Novolog sliding scale q 4 hrs ROS: 12 point ROS are negative PMH Past Medical History Diagnosis Date ??? Actinic keratosis ??? Allergic rhinitis ??? Asthma ??? Chronic diarrhea ??? Depression ??? Diabetes mellitus 01/24/2012 ??? Fibromyalgia 01/24/2012 ??? HLD (hyperlipidemia) ??? HTN (hypertension) ??? Hypothyroidism ??? Migraine ??? Morbid obesity 01/24/2012 ??? Neurodermatitis ??? Paratubal cyst 01/24/2012 ??? Seborrheic keratosis ??? Sleep apnea 01/24/2012 ??? TBI (traumatic brain injury) Current Hospital Medications: ??? polyethylene glycol 17 g Oral Daily ??? [START ON 09/15/2016] atenolol 75 mg Oral Daily ??? gabapentin 100 mg Oral TID ??? loratadine 10 mg Oral Daily ??? sodium chloride 0.9 % 5 mL Intravenous BID ??? enoxaparin 40 mg Subcutaneous BID ??? pantoprazole 40 mg Intravenous Daily ??? fluticasone-salmeterol 2 puff Inhalation Daily ??? insulin lispro 1-4 Units Subcutaneous Q4H ??? levothyroxine 250 mcg Oral QAM PRN: traMADol, ondansetron, HYDROmorphone, BUpivacaine (PF), dextrose 50% OR glucagon (human recombinant), sodium chloride 0.9 %, lidocaine, diphenhydrAMINE, [COMPLETED] acetaminophen FOLLOWED BY acetaminophen Allergy: Allergies Allergen Reactions ??? Latex Rash ??? Amlodipine Other (See Comments) Suicidal thoughts ??? Imitrex [Sumatriptan Succinate] Suicidal thoughts ??? Lyrica [Pregabalin] Other (See Comments) Intolerance ??? Metformin Diarrhea ??? Prozac [Fluoxetine] Anxiety ??? Sulfa (Sulfonamide Antibiotics) ??? Tramadol Anxiety Social history: Social History Substance Use Topics ??? Smoking status: Never Smoker ??? Smokeless tobacco: Never Used ??? Alcohol use No Family history: No family history on file. Vitals Last value Range last 24 hrs Temperature Temp: 37.5 ??C (99.5 ??F) Temp: [36.6 ??C (97.9 ??F)-37.5 ??C (99.5 ??F)] Heart Rate Heart Rate: 73 Heart Rate: -- Blood Pressure BP: 128/62 BP: (105-131)/(48-68) Respiratory Rate Resp: 18 Resp: [14-18] SpO2 SpO2: (!) 86 % SpO2: [84 %-98 %] Physical Exam: Appearance: AAO x 3 NAD CVS: rrr. No murmur Chest: CTAB Abd: S, NT, BS+ ext: no pitting edema Labs: Recent Results (from the past 24 hour(s)) POCT Glucose Result Value Ref Range POC Glucose 179 65 - 199 mg/dL POCT Glucose Result Value Ref Range POC Glucose 185 65 - 199 mg/dL POCT Glucose Result Value Ref Range POC Glucose 152 65 - 199 mg/dL POCT Glucose Result Value Ref Range POC Glucose 193 65 - 199 mg/dL POCT Glucose Result Value Ref Range POC Glucose 236 (H) 65 - 199 mg/dL Assessment: Patient is a 51 y.o. years old female with PMH significant for DM (Last A1C of 7.7) and obesity who was admitted on 09/12/2016 for bariatric surgery. She is currently POD 2 today, and her insulin requirement dropped from 300 u/d pre-op to 6-12u/d. At this point, I think she would likely do well with oral antidiabetic agent for now. With further weight loss, she might no longer need DM treatment later. Metformin increases insulin sensitivity and would be a good choice for her. However, she had intolerance with metformin before. DPP-4 and GLP-1 would not be the best choice as after bariatric surgery,the incretin hormones (eg. GLP-1) increase postprandially by 3-5 fold. We would like to start her yo low dose SGLT-2 at this point and re-evaluate the needs for antidiabetic medications 2-4 weeks after discharge. Plan: - Start Invokana 100 mg qd today - Discharge on Invokana 100 mg qd - Follow up with diabetes VIDEOTAPE EDITOR Lluvia in 2-4 weeks and re-evaluate the use of Invokana. - Case discussed with Dr German of endocrinology. Thank you for allowing us to provide care for your patient. Primary team updated. Neo Tong MD Endocrine Fellow Pager [phone] Associated attestation - Keila German MD - 09/15/2016 9:30 AM EST I saw this patient with Dr. Tong. I reviewed the gregory portions of the history and physical exam, and reviewed pertinent lab data. I answered all patient questions. I was involved in all medical decisionmaking and agree with this plan. KEILA GERMAN MD Child Specialistpower plant assistant Section of Endocrinology [facility] Plan of Care - Rosa Boyd RN - 09/14/2016 5:36 PM EST Problem: Patient Care Overview Goal: Plan of Care Review Outcome: Ongoing (Interventions Implemented as Appropriate) 09/14/16 0224 09/14/16 0720 Coping/Psychosocial Plan Of Care Reviewed With -- patient Plan of Care Review Progress declining -- OUTCOME EVALUATION NOTE: OUTCOME SUMMARY: Ruth Perez was improved pain nicholson today compared to yesterday, minimal c/o pain in her epigastric/stomach area, but she did have a bigger c/o CARMONA which was helped with po tramadol. Otherwise she looks forward to going home tomorrow, her O2 need remains at this point. At rest she goes between 84-94%. Standing at the sink washing up she was 90-91% without O2 however. She has been using her IS and has been able to cough up some phlegm. Otherwise comfortable, will continue to monitor. PLAN MOVING FORWARD: DC probable tomorrow. Monitor CARMONA, sugars. INDIVIDUALIZED FALL PREVENTION INTERVENTIONS: Patient-specific fall risk factors per assessment: [current deficits]: Weakness, dizziness, O2 needs Assistance [level of assistance required for transfers and ambulation]: 1 assist with walker Supervision [direct monitoring required during toileting and ADLs]: Eyes on Surveillance [continuous indirect monitoring]: Masimo, purposeful rounding, call hood in reach. CPG GOAL OUTCOME EVALUATION: Med Student Progress Note - Guido Rincon - 09/14/2016 5:02 AM EST GENERAL SURGERY (Minimally Invasive Surgery) INPATIENT PROGRESS NOTE ID: Ruth Galeana is a 51 y.o. female with a history of unsuccessful long-term weight loss efforts formorbid obesity status-post laparoscopic sleeve gastrectomy POD 2 (09/12/2016). 24HR EVENTS - Episode of dry heaving, pain, headache, and nausea at 2am this morning - controlled with Compazineand Toradol SUBJECTIVE - Otherwise pain adequately controlled - Tolerating full liquid diet - Denies flatus and bowel movements - Voiding independently - Out of bed, but not ambulating on the floor - Reports mild dizziness upon standing, but at this moment denies nausea, vomiting, fever, chills, chest pain, or shortness of breath OBJECTIVE VITALS Last value Range last 24hrs Temperature Temp: 36.7 ??C (98.1 ??F) Temp: [36.7 ??C (98.1 ??F)-37 ??C (98.6 ??F)] Heart Rate Heart Rate: 73 Heart Rate: -- Blood Pressure BP: 105/48 BP: (105-134)/(48-69) Respiratory Rate Resp: 16 Resp: [14-16] SpO2 SpO2: 92 % SpO2: [92 %-99 %] I/O last 3 completed shifts: In: 4570 [P.O.:240; I.V.:4330] Out: 4828 [Urine:4805; Blood:23] I/O this shift: In: 480 [P.O.:480] Out: 1200 [Urine:1200] PHYSICAL EXAM General: resting comfortably in bed; alert, cooperative, and in no apparent distress Cardiovascular: regular rate and rhythm; no murmurs, rubs, or gallops; no carotid bruits appreciated Pulmonary: non-labored breathing on 1L/min NC; lung ernst clear to auscultation anteriorly Abdomen: mildly distended; tympanic to percussion on all four quadrants without guarding; bowel sounds appreciated; non-tender to palpation; incision sites underneath dry non-bloody dressing Peripheral Access: no erythema or signs of infection Extremities: warm and well-perfused; SCDs on; no edema; no calf tenderness ASSESSMENT / PLAN Ruth Galeana is a 51 y.o. female with a history of unsuccessful long-term weight loss efforts formorbid obesity status-post laparoscopic sleeve gastrectomy POD 2 (09/12/2016). Episode of nausea mayhave been due to dehydration, as the patient's IV fluids were discontinued yesterday; she had also taken in 700mL PO and urinated 4000mL. Nausea may have also been due to normal post-operative recovery; for now, encourage adequate PO intake while medically controlling nausea. Pain has otherwise been adequately controlled. Aim for discharge later this afternoon or tomorrow - pending ambulation. NEURO: Scheduled acetaminophen and PO narcotic pain medications (Hydromorphone) with IV for breakthrough CV: Currently stable on home medications PULM: Stable on 1L/min NC or CPAP when sleeping; stable on room air when awake GI: PRN stool stimulants; Pantoprazole 40mg injection QD : Voiding independently; continue monitoring UOP FEN: Lactate Ringers infusion; continue Stage 2 (full liquid diet), encouraging adequate fluid intake ENDO:POC glucose (185) well-controlled on insulin; Levothyroxine 250mg QAM HEME: Hb yesterday stable (13.0) ID: Afebrile, WBC yesterday stable (9.6), perioperative antibiotics completed PPX: Enoxaparin 40mg BID, SCDs on, encourage ambulation and inspiratory spirometer use DISPO:Stable on floor status; aim for discharge later this afternoon or tomorrow. Guido Rincon MS3 Plan of Care - Helen Silver RN - 09/14/2016 2:35 AM EST Problem: Patient Care Overview Goal: Plan of Care Review Outcome: Ongoing (Interventions Implemented as Appropriate) 09/13/16191409/14/16223 Coping/Psychosocial Plan Of Care Reviewed With patient -- Plan of Care Review Progress -- declining OUTCOME EVALUATION NOTE: OUTCOME SUMMARY: Ruth Perez woke up around 0200 due to increase pain, a headache, and nausea. She got up to restroom, back to bed and started MD moe aware, wrote for one time dose toradol for headache and compazine, which relieved her nausea. She calmed down and was able to go back to sleep. CPAP on with 1L oxygen, if on RA she desats to the 80s. Pain elevated, receiving PO dilaudid. Voiding adequate amounts. Trying to sleep in between care PLAN MOVING FORWARD: Nausea control, headache control, pain control INDIVIDUALIZED FALL PREVENTION INTERVENTIONS: Patient-specific fall risk factors per assessment: [current deficits]: lines Assistance [level of assistance required for transfers and ambulation]: Stand by Supervision [direct monitoring required during toileting and ADLs]: Independent in restroom Surveillance [continuous indirect monitoring]: Masimo, purposeful rounding Patient-specific fall prevention interventions for sensory deficits provided, if applicable: [X] Yeslighting CPG GOAL OUTCOME EVALUATION: Goal: Fall Prevention-Safe Patient Handling Outcome: Ongoing (Interventions Implemented as Appropriate) 09/13/161914 Restraint Interventions Safety Promotion/Fall Prevention activity supervised Ko Fall Risk History of Falling 0 Secondary Diagnosis 15 Ambulatory Aids 0 Intravenous Therapy/Heparin/Saline Lock 20 Gait/Transferring 10 Mental Status 0 Score 45 OTHER Ko Fall Risk High Positioning Body Position independent Goal: Infection Control Outcome: Ongoing (Interventions Implemented as Appropriate) 09/13/161914 Safety Interventions Isolation Precautions standard precautions maintained Infection Prevention rest/sleep promoted Coping Strategies Supportive Measures active listening utilized Goal: Discharge Needs Assessment Outcome: Ongoing (Interventions Implemented as Appropriate) 09/12/162102 Discharge Needs Assessment Concerns To Be Addressed denies needs/concerns at this time Provider Choice List(s) Given yes Equipment Needed After Discharge crutches, forearm Current Health Anticipated Changes Related to Illness none Activity/Self Care Review of Systems Equipment Currently Used at Home crutches, forearm Living Environment Transportation Available family or friend will provide Goal: Interdisciplinary Rounds/Family Conf Outcome: Ongoing (Interventions Implemented as Appropriate) 09/12/162102 Interdisciplinary Rounds/Family Conf Summary Nurse Knowledge Exhange Participants family;nursing;patient Problem: Nutrition, Imbalanced: Excessive Oral Intake (Pediatric) Goal: Acknowledges the Importance of Weight/Loss Maintenance and Overall Health Patient will demonstrate the desired outcomes by discharge/transition of care. Outcome: Ongoing (Interventions Implemented as Appropriate) 09/14/16223 Nutrition, Imbalanced: Excessive Oral Intake (Pediatric) Acknowledges the Importance of Weight/Loss Maintenance and Overall Health making progress toward outcome Goal: Expresses Desire and Motivation to Change Patient will demonstrate the desired outcomes by discharge/transition of care. Outcome: Ongoing (Interventions Implemented as Appropriate) 09/14/16223 Nutrition, Imbalanced: Excessive Oral Intake (Pediatric) Expresses Desire and Motivation to Change making progress toward outcome Plan of Care - Rosa Boyd RN - 09/13/2016 1:03 PM EST Problem: Patient Care Overview Goal: Plan of Care Review Outcome: Ongoing (Interventions Implemented as Appropriate) 09/12/16210209/13/16729 Coping/Psychosocial Plan Of Care Reviewed With -- patient;parent Plan of Care Review Progress no change -- OUTCOME EVALUATION NOTE: OUTCOME SUMMARY: Ruth perez was able to walk to the desk and back but she did have some nausea with this, perhaps d/t having her medications prior to the walk. She states that she has a strong gag reflex and she did notenjoy taking liquid or crushed medications. She c/o a CARMONA today but didn't want anything for it at the time. Her PLASTERER MAINTENANCE has been discontinued and her pain so far seems managed with po liquid dilaudid. Mom is still at the bedside, will continue to monitor. PLAN MOVING FORWARD: Monitor pain, possible DC in the next 2 days. INDIVIDUALIZED FALL PREVENTION INTERVENTIONS: Patient-specific fall risk factors per assessment: [current deficits]: Weakness, IV pole Assistance [level of assistance required for transfers and ambulation]: 1-2 assist with cane Supervision [direct monitoring required during toileting and ADLs]: Surveillance [continuous indirect monitoring]: Masimo, purposeful rounding, call hood in reach. CPG GOAL OUTCOME EVALUATION: Med Student Progress Note - Guido Rincon - 09/13/2016 11:34 AM EST GENERAL SURGERY (Minimally Invasive Surgery) INPATIENT PROGRESS NOTE ID: Ruth Galeana is a 51 y.o. female with a history of unsuccessful long-term weight loss efforts formorbid obesity status-post laparoscopic sleeve gastrectomy POD 1 (09/12/2016). SUBJECTIVE - Pain adequately controlled - Patient has not yet tried PO diet - Denies flatus and bowel movements - Voiding independently throughout evening with straight catheterization once at midnight for 800mL - Out of bed, but not ambulating on the floor - Reports mild dizziness upon standing, but denies nausea, vomiting, fever, chills, chest pain, or shortness of breath OBJECTIVE VITALS Last value Range last 24hrs Temperature Temp: 36.7 ??C (98.1 ??F) Temp: [36 ??C (96.8 ??F)-37 ??C (98.6 ??F)] Heart Rate Heart Rate: 73 Heart Rate: [68-77] Blood Pressure BP: 134/67 BP: (123-143)/(46-67) Respiratory Rate Resp: 16 Resp: [15-30] SpO2 SpO2: 99 % SpO2: [91 %-99 %] I/O last 3 completed shifts: In: 3128 [I.V.:312] Out: 2027 [Urine:2004; Blood:23] I/O this shift: In: 750 [P.O.:240; I.V.:510] Out: 300 [Urine:300] PHYSICAL EXAM General: resting comfortably in bed; alert, cooperative, and in no apparent distress Cardiovascular: regular rate and rhythm; no murmurs, rubs, or gallops; no carotid bruits appreciated Pulmonary: non-labored breathing on 5L/min CPAP; lung ernst clear to auscultation anteriorly Abdomen: soft and non-distended; tympanic to percussion on upper quadrants without guarding; faint bowel sounds appreciated; tender to palpation in upper quadrants; incision sites underneath dry non-bloody dressing Peripheral Access: no erythema or signs of infection Extremities: warm and well-perfused; SCDs on; no edema; no calf tenderness LABS Recent Labs 09/13/16 0517 WBC 9.6* HGB 13.0 HCT 37.8 PLATELET 197 NA 139 K 4.1 CL 100 CO2 27 BUN 13 CREATININE 0.79 MAGNESIUM 0.88 PHOS 3.3 GLUCOSE 192 Lab Results Component Value Date CALCIUM 9.7 09/13/2016 Lab Results Component Value Date PHOS 3.3 09/13/2016 No results for input(s): ALBUMIN in the last 168 hours. No results for input(s): INR in the last 168 hours. ASSESSMENT / PLAN Ruth Galeana is a 51 y.o. female with a history of unsuccessful long-term weight loss efforts formorbid obesity status-post laparoscopic sleeve gastrectomy POD 1 (09/12/2016). Though initially scheduled for laparoscopic Escobar-en-Y gastric bypass, patient underwent a sleeve gastrectomy due to her com plicated history of abdominal surgeries causing extensive peritoneal adhesions; patient understood the possibility of gastric sleeve - per attending's clinic note. Recovering as expected with pain adequately controlled. Aim for discharge tomorrow. NEURO: Discontinue PLASTERER MAINTENANCE; schedule acetaminophen and PO narcotic pain medications with IV for breakthrough; patient reported side effects with oxycodone, stating it was so strong that I was out for a day - consider Hydromorphone 2mg Q4H oral liquid PRN CV: Currently stable on home medications PULM: Stable on 5L/min CPAP at night and room air during the day when awake GI: PRN stool stimulants; Pantoprazole 40mg injection QD : Voiding independently; continue monitoring UOP FEN: Lactate Ringers infusion; progress to Stage 1 (clears) and if tolerating Stage 2 (full liquid diet) ENDO:POC glucose (192) well-controlled on insulin; Levothyroxine 250mg QAM HEME: Stable (13.0) ID: Afebrile, WBC stable (9.6), perioperative antibiotics completed PPX: Enoxaparin 40mg BID, SCDs on, encourage ambulation and inspiratory spirometer use DISPO:Stable on floor status. Guido Rincon MS3 Initial Assessments - Landy Stevenson RN - 09/13/2016 10:48 AM EST Office of Care Management Initial Assessment Landy Stevenson RN reviewed record and discussed patient with Care Team. Source of Information: Chart review, MD report, & patient interview. Introduced self/reviewed role; services accepted. Reason for Hospitalization: 51 y/o woman who had sleeve gastrectomy for morbid obesity on 09/12/16 Past Medical History Diagnosis Date ??? Actinic keratosis ??? Allergic rhinitis ??? Asthma ??? Chronic diarrhea ??? Depression ??? Diabetes mellitus 01/24/2012 ??? Fibromyalgia 01/24/2012 ??? HLD (hyperlipidemia) ??? HTN (hypertension) ??? Hypothyroidism ??? Migraine ??? Morbid obesity 01/24/2012 ??? Neurodermatitis ??? Paratubal cyst 01/24/2012 ??? Seborrheic keratosis ??? Sleep apnea 01/24/2012 ??? TBI (traumatic brain injury) Hospitalizations Within the Past 30 Days: No Anticipated Length Of Stay (If known): 2-3 days Current Decision-Making Capacity: Patient alert, oriented, & able to make own choices. Advance Care Planning: In chart Current Coping/Education/Information Needs: Patient verbalized understanding of treatment, gradual increase of diet, & anticipated recovery Current Functional Ability: Independent Functional Status Prior to Admission: Independent Home Environment: 1 step into single level living space. Social & Family Supports/Community Resources: Patient states she lives with 3 teenagers. States mom & sister are nurses that live close by. Behavioral Health History: H/s of TBI Substance Use/Abuse: No Other Pertinent/Service Specific Information: N/A Health/Prescription Coverage: Primary Insurance: Medicare A+B Secondary Insurance: Medicaid [place] Prescription Coverage: Medicaid Preferred Pharmacy: [facility] in [place], [place] Other: N/A Primary Care Provider: Zhanna Francois, [employer] [phone] Patient/Caregiver Goals of Treatment: Discharge home with instructions for dietary changes. Potential Needs for Transition of Care: Rehab/SNF: No Home Health: No DME: No Dialysis: No Community Resources: No Transportation: Personal car with family Other: N/A Anticipated Barriers to Discharge/Special Considerations: No barriers anticipated Plan: No needs anticipated. CM will maintain contact with patient & providers to coordinate any services needed for discharge. Landy Stevenson RN Pager: [phone] Plan of Care - Helen Silver RN - 09/13/2016 3:09 AM EST Problem: Patient Care Overview Goal: Plan of Care Review Outcome: Ongoing (Interventions Implemented as Appropriate) 09/12/162102 Coping/Psychosocial Plan Of Care Reviewed With patient;family Plan of Care Review Progress no change OUTCOME EVALUATION NOTE: OUTCOME SUMMARY: Ruth Perez states her abdomen is sore, but PLASTERER MAINTENANCE is helping. Respiratory up to blend O2 with pt's CPAP.Pt voided 125 x2, midnight bladder scan was 571 pt stating she was starting to get uncomfortable, stcathed for 800. Mother at bedside, pt sleeping in between care 0430: pt voided 700 PLAN MOVING FORWARD: OOB, ambulation, advance diet INDIVIDUALIZED FALL PREVENTION INTERVENTIONS: Patient-specific fall risk factors per assessment: [current deficits]: lines Assistance [level of assistance required for transfers and ambulation]: 1 person Supervision [direct monitoring required during toileting and ADLs]: Eyes on Surveillance [continuous indirect monitoring]: Call hood in reach, purposeful rounding Patient-specific fall prevention interventions for sensory deficits provided, if applicable: [X] Yeslighting CPG GOAL OUTCOME EVALUATION: Goal: Fall Prevention-Safe Patient Handling Outcome: Ongoing (Interventions Implemented as Appropriate) 09/12/16 19309/12/162102 Restraint Interventions Safety Promotion/Fall Prevention -- activity supervised;fall prevention program maintained Ko Fall Risk History of Falling 0 -- Secondary Diagnosis 15 -- Ambulatory Aids 0 -- Intravenous Therapy/Heparin/Saline Lock 20 -- Gait/Transferring 10 -- Mental Status 0 -- Score 45 -- OTHER Ko Fall Risk High -- Positioning Body Position independent -- Goal: Infection Control Outcome: Ongoing (Interventions Implemented as Appropriate) 09/12/16192909/12/162102 Safety Interventions Isolation Precautions -- standard precautions maintained Infection Prevention rest/sleep promoted -- Coping Strategies Supportive Measures -- active listening utilized Goal: Discharge Needs Assessment Outcome: Ongoing (Interventions Implemented as Appropriate) 09/12/162102 Discharge Needs Assessment Concerns To Be Addressed denies needs/concerns at this time Provider Choice List(s) Given yes Equipment Needed After Discharge crutches, forearm Current Health Anticipated Changes Related to Illness none Activity/Self Care Review of Systems Equipment Currently Used at Home crutches, forearm Living Environment Transportation Available family or friend will provide Plan of Care - Ranjit Merlos - 09/12/2016 9:08 PM EST Problem: Patient Care Overview Goal: Plan of Care Review Outcome: Ongoing (Interventions Implemented as Appropriate) 09/12/162102 Coping/Psychosocial Plan Of Care Reviewed With patient;family Plan of Care Review Progress no change OUTCOME EVALUATION NOTE: OUTCOME SUMMARY: Noted to tolerate plan of care without issue at present. Reviewed personal safety recommendations. Stated understanding and agreement. PLAN MOVING FORWARD: Continue plan of care per MD order, nursing process and patient participation. Amend prn INDIVIDUALIZED FALL PREVENTION INTERVENTIONS: Patient-specific fall risk factors per assessment: [current deficits]: Morbid obesity, inpatient status, s/p surgical intervention Assistance [level of assistance required for transfers and ambulation]: observation Supervision [direct monitoring required during toileting and ADLs]: independent Surveillance [continuous indirect monitoring]: daly Patient-specific fall prevention interventions for sensory deficits provided, if applicable:no CPG GOAL OUTCOME EVALUATION: Goal: Individualization & Mutuality Outcome: Ongoing (Interventions Implemented as Appropriate) 09/12/161999 Mutuality/Individual Preferences What Anxieties, Fears or Concerns Do You Have About Your Health or Care? none What Questions Do You Have About Your Health or Care? I have questions about the new dietary restrictions What Information Would Help Us Give You More Personalized Care? none Goal: Fall Prevention-Safe Patient Handling Outcome: Ongoing (Interventions Implemented as Appropriate) 09/12/16192909/12/162102 Restraint Interventions Safety Promotion/Fall Prevention -- activity supervised;fall prevention program maintained Ko Fall Risk History of Falling 0 -- Secondary Diagnosis 15 -- Ambulatory Aids 0 -- Intravenous Therapy/Heparin/Saline Lock 20 -- Gait/Transferring 10 -- Mental Status 0 -- Score 45 -- OTHER Ko Fall Risk High -- Positioning Body Position independent -- Goal: Infection Control Outcome: Ongoing (Interventions Implemented as Appropriate) 09/12/162102 Safety Interventions Isolation Precautions standard precautions maintained Coping Strategies Supportive Measures active listening utilized Goal: Discharge Needs Assessment Outcome: Ongoing (Interventions Implemented as Appropriate) 09/12/162102 Discharge Needs Assessment Concerns To Be Addressed denies needs/concerns at this time Provider Choice List(s) Given yes Equipment Needed After Discharge crutches, forearm Current Health Anticipated Changes Related to Illness none Activity/Self Care Review of Systems Equipment Currently Used at Home crutches, forearm Living Environment Transportation Available family or friend will provide Goal: Interdisciplinary Rounds/Family Conf Outcome: Ongoing (Interventions Implemented as Appropriate) 09/12/162102 Interdisciplinary Rounds/Family Conf Summary Nurse Knowledge Exhange Participants family;nursing;patient Op Note - Deven Goodwin MD - 09/12/2016 7:35 PM EST [facility] [place] Patient Name: Ruth Galeana : [id number] MR#: [id number] Case Date: 09/12/2016 Surgeon: Surgeon(s) and Role: * Deven Goodwin MD - Primary * Cinthya Alva MD - Fellow Preoperative diagnosis: OBESITY Postoperative diagnosis: OBESITY Procedure(s): @LAPAROSCOPY, SURG/GASTRIC RESTRICTIVE PROC, LONGITUDINAL GASTRECTOMY ENDOSCOPY, UPPER GI, DIAGNOSTIC, WITH OR WITHOUT SPECIMENS DATE OF OPERATION: 09/12/16 PREOPERATIVE DIAGNOSIS: Morbid obesity. POSTOPERATIVE DIAGNOSIS: Same. PROCEDURE PERFORMED: Laparoscopic sleeve gastrectomy with upper GI endoscopy. SURGEONS: Deven Goodwin MD; Cinthya Alva MD ANESTHESIA: General endotracheal anesthesia. COMPLICATIONS: None. INDICATIONS FOR SURGERY: The patient is a 51-year-old female who has had long-term issues with morbid obesity. Currently, she has had full participation in the [facility] [place] and meets NIH criteria for weight loss surgery. Following review of her therapeutic options, she is interested in proceeding with a Escobar-en-Y gastric bypass. She has the understanding that this plan could be modified to gastric sleeve depending on intraoperative findings. FINDINGS AT THE TIME OF SURGERY: She was noted to have extensive adhesions in her lower abdomen from previous abdominal surgery, even the possibility of an abdominal wall hernia. This would have required extensive lysis of adhesions. In addition, she had a very large liver making exposure of the upper abdomen difficult. For these reasons, we proceeded with a gastric sleeve rather than a gastric bypass due to what was feasible and safe in this particular patient as again we had discussed preoperatively. She underwent an uneventful gastric sleeve over a 40-Mexican bougie. Intraoperative endoscopy showed a patent gastric tube without any evidence of leak or bleeding. DETAILS OF THE OPERATION: The patient was brought to the Operating Room and placed in a supine position following uneventful induction of general endotracheal anesthesia. A Valdez catheter was placed as well as Venodyne stockings and her orogastric tube. Her abdomen was prepped and draped in the usual sterile fashion, and an 11 mm optical trocar was then placed 15 cm inferior to the xiphoid just to the left of midline. Through this, a 0-degree laparoscope was placed under direct visualization in the abdominal cavity, and a pneumoperitoneum to 15 mmHg pressure was obtained without difficulty. The next trocar was a 5 mm trocar placed 20 cm on the left costal margin. The next trocar was a 5 mm trocar placed midway between the left lateral trocar and the umbilicus. The next trocar was a 5 mm trocar placed in a subxiphoid location. Through this, an expandable fan retractor was positioned below the left lobe of the liver which was then retracted cephalad. The patient despite counseling on the preop diet was noted to have a very large liver consistent with fatty liver infiltration and hepatomegaly, making exposure of the upper abdomen somewhat of a challenge. The next trocar was a 5 mm trocar placed in the right upper abdomen, and the last trocar was a 12 mm trocar placed in the right mid abdomen. The abdomen was visually inspected. In her pelvis, she was noted to have fairly extensive adhesions between the omentum and the anterior abdominal wall from a prior abdominal surgery, and even raised the question of whether she may have an incisional hernia related to these adhesions, but we did not take down these adhesions for it would have been quite an extensive lysis of adhesions nor to perform a Escobar-en-Y gastric bypass. I also had concerns about the ability to fully expose the upper abdomen in order to conduct a gastric bypass whereas we had good exposure of the greater curvature, adequate for a gastric sleeve. For these reasons, we decided to proceed with gastric sleeve as we had discussed with her preoperatively. We took down adhesions in the region of the angle of His, down to the first short gastric vessel. We then identified the pylorus and measuring 5 cm up from the pylorus along the greater curvature, a window was created between the gastric wall and the branches of the gastroepiploic. We then proceeded to divide all branches of the gastroepiploic as well as short gastric vessels up to the angle of His. In a similar fashion, all posterior gastric attachments were taken down using sharp and Harmonic scalpel dissection to fully mobilize the stomach all the way to the lesser curvature. Once this had been accomplished, the orogastric tube was removed, and the gastrectomy was then performed. We began at the greater curvature with a green load of the Mos[place] 60 angled toward the lesser curvature. We then passed a 40-Mexican bougie down the esophagus into the stomach and beyond the initial staple line into the antrum of stomach by Anesthesia without difficulty. With the 40-Mexican bougie in place, an additional green load was fired followed by subsequent firings of Mos[place] 60 blue loads abutting up against the 40-Mexican bougie along the lesser curvature to appropriately size the pouch. All loads were fired using Seamguard buttressing material. Following completion of the gastrectomy, the 12 mm trocar site was dilated at the fascial level, and the specimen was extracted out through this trocar and sent as pathology. The 12 mm trocar site trocar site was closed at the fascial level using a Bennie-[place] closure device and 0 Vicryl suture. An upper GI endoscopy was conducted in order to distend the gastric pouch. This confirmed patency of the pouch, lack of bleeding, and the saline insufflation test did not show any leak from the staple line. At this point, the liver retractor was released and removed. All remaining trocars were removed under direct visualization to ensure hemostasis at the insertion site, and the pneumoperitoneum was evacuated. Overall, she tolerated the procedure well and was taken to the Recovery postop in stable condition. All trocars were closed at the skin level using a running subcuticular closure of 4-0 Vicryl followed by Steri-Strips followed by Band-Aids. Attestation: Case Date: 09/12/2016 I performed this without a resident No Qualified resident available DEVEN GOODWIN MD 09/22/2016 Brief Op Note - Deven Goodwin MD - 09/12/2016 1:17 PM EST Brief Operative Note Patient Name: Ruth Galeana : [id number] MR#: [id number] Case Date: 09/12/2016 Surgeon: Surgeon(s) and Role: * Deven Goodwin MD - Primary * Cinthya Alva MD - Fellow Preoperative diagnosis: OBESITY Postoperative diagnosis: OBESITY Procedure(s): @LAPAROSCOPY, SURG/GASTRIC RESTRICTIVE PROC, LONGITUDINAL GASTRECTOMY ENDOSCOPY, UPPER GI, DIAGNOSTIC, WITH OR WITHOUT SPECIMENS Anesthesia: General Findings: significant adhesions in pelvis, Large liver making upper abdominal exposure a challenge. Decision to proceed with Gastric sleeve for these reasons as discussed with her preop. Complications: none Fluids: 1600cc Estimated Blood Loss: 23 mL Drains: none Disposition: pacu Condition: stable Attestation: Case Date: 09/12/2016 I performed this without a resident No Qualified resident available (Please see the Surgical Encounter Summary for any Implant and Specimen details pertinent to this patient.) documented in this encounter Plan of Treatment Not on filedocumented as of this encounter Procedures Procedure Name Priority Date/Time Associated Comments Diagnosis IMPLANTABLE DEVICES 09/16/2016 12:00 SCAN AM EST ECG SCAN 09/16/2016 12:00 AM EST POCT GLUCOSE Routine 09/15/2016 4:24 PM Results f or this EST procedure are i n the results section. CT CHEST PULMONARY STAT 09/15/2016 3:51 PM Res ults for this EMBOLISM W CONTRAST EST procedur e are in the results section. POCT GLUCOSE Routine 09/15/2016 12:49 Results for this PM EST procedure are i n the results section. POCT GLUCOSE Routine 09/15/2016 11:25 Results for this AM EST procedure are i n the results section. POCT GLUCOSE Routine 09/15/2016 9:32 AM Results f or this EST procedure are i n the results section. HEMOGRAM STAT 09/15/2016 8:46 AM Results f or this EST procedure are i n the results section. DIFFERENTIAL, STAT 09/15/2016 8:46 AM Results for this AUTOMATED EST procedure are i n the results section. CBC (WITH DIFF) STAT 09/15/2016 8:46 AM EST PHOSPHORUS STAT 09/15/2016 8:46 AM Results f or this EST procedure are i n the results section. MAGNESIUM STAT 09/15/2016 8:46 AM Results f or this EST procedure are i n the results section. BASIC METABOLIC PANEL STAT 09/15/2016 8:46 AM Results for this (NON-FASTING) EST procedure are in the results section. POCT GLUCOSE Routine 09/15/2016 7:04 AM Results f or this EST procedure are i n the results section. POCT GLUCOSE Routine 09/15/2016 4:12 AM Results f or this EST procedure are i n the results section. POCT GLUCOSE Routine 09/14/2016 11:46 Results for this PM EST procedure are i n the results section. POCT GLUCOSE Routine 09/14/2016 7:21 PM Results f or this EST procedure are i n the results section. POCT GLUCOSE Routine 09/14/2016 3:54 PM Results f or this EST procedure are i n the results section. POCT GLUCOSE Routine 09/14/2016 10:59 Results for this AM EST procedure are i n the results section. POCT GLUCOSE Routine 09/14/2016 7:25 AM Results f or this EST procedure are i n the results section. POCT GLUCOSE Routine 09/14/2016 3:45 AM Results f or this EST procedure are i n the results section. POCT GLUCOSE Routine 09/13/2016 11:00 Results for this PM EST procedure are i n the results section. POCT GLUCOSE Routine 09/13/2016 7:09 PM Results f or this EST procedure are i n the results section. POCT GLUCOSE Routine 09/13/2016 3:54 PM Results f or this EST procedure are i n the results section. POCT GLUCOSE Routine 09/13/2016 11:18 Results for this AM EST procedure are i n the results section. POCT GLUCOSE Routine 09/13/2016 7:10 AM Results f or this EST procedure are i n the results section. HEMOGRAM Routine 09/13/2016 5:17 AM Results f or this EST procedure are i n the results section. DIFFERENTIAL, Routine 09/13/2016 5:17 AM Results for this AUTOMATED EST procedure are i n the results section. CBC (WITH DIFF) Routine 09/13/2016 5:17 AM EST PHOSPHORUS Routine 09/13/2016 5:17 AM Results f or this EST procedure are i n the results section. MAGNESIUM Routine 09/13/2016 5:17 AM Results f or this EST procedure are i n the results section. BASIC METABOLIC PANEL Routine 09/13/2016 5:17 AM Results for this (NON-FASTING) EST procedure are in the results section. POCT GLUCOSE Routine 09/13/2016 4:21 AM Results f or this EST procedure are i n the results section. POCT GLUCOSE Routine 09/12/2016 11:29 Results for this PM EST procedure are i n the results section. POCT GLUCOSE Routine 09/12/2016 7:23 PM Results f or this EST procedure are i n the results section. POCT GLUCOSE Routine 09/12/2016 5:00 PM Results f or this EST procedure are i n the results section. POCT GLUCOSE Routine 09/12/2016 1:49 PM Results f or this EST procedure are i n the results section. SURGICAL PATHOLOGY Routine 09/12/2016 1:06 PM Res ults for this REPORT EST procedure are i n the results section. SPECIMEN TO PATHOLOGY Routine 09/12/2016 1:06 PM Results for this EST procedure are i n the results section. ENDOSCOPY, UPPER GI, 09/12/2016 10:42 OBESITY DIAGNOSTIC, WITH OR AM EST WITHOUT SPECIMENS @LAPAROSCOPY, 09/12/2016 10:42 OBESITY SURG/GASTRIC AM EST RESTRICTIVE PROC, LONGITUDINAL GASTRECTOMY (WRVU 20.38) documented in this encounter Results SCAN DOC: IMPLANTABLE DEVICES (09/16/2016 12:00 AM EST) Narrative This result has an attachment that is no t available. Scanning Provider MEDIA MGR SCAN EXT ORDR/RSLT SCAN DOC: ECG (09/16/2016 12:00 AM EST) Narrative This result has an attachment that is no t available. Scanning Provider MEDIA MGR SCAN EXT ORDR/RSLT POCT Glucose (09/15/2016 4:24 PM EST) P athologist Signature POC Glucose 189 65 - 199 RUTH VASQUEZ mg/dL [facility] Comment: Supplemental ranges: <140 mg/dL before meals <180 mg/dL all other times of the day Specimen Anatomical Collection Method Collection Time Receive d Time (Source) Location / / Volume Laterality Blood specimen 09/15/2016 4:24 PM 016 4:24 (specimen) EST PM EST Deven Goodwin MD POINT OF CARE TEST ORDERABLE S Performing Organization Address City/State/[place] [address] Chest Pulmonary Embolism w Contrast (09/15/2016 3:51 PM EST) Anatomical Region Laterality Modality Chest Computed Tomography Specimen (Source) Anatomical Location Collection Method / Collectio n Time Received Time / Laterality Volume Impressions 09/15/2016 4:05 PM EST No pulmonary embolism identified. Narrative 09/15/2016 4:05 PM EST EXAMINATION: CTA chest for pulmonary arteries CLINICAL HISTORY: POD3 s/p sleeve gastre ctomy. acute ?on chronic hypoxia of unclear etiology, r/o PE TECHNIQUE: 2.5 mm thick axial contiguous sections were obtained through the chest via helical acquisition after the intravenous administration of 100 cc of Omnipaque-350. Thin-section reconstructi ons as well as coronal and sagittal MIP reformatted images were generated to aid in evaluation. COMPARISON: Chest CT 07/04/2016 FINDINGS: Pulmonary arteries:Adequate enhancement of pulmonary arteries.No pulmonary arterial filling defects. Other cardiovascular structures: No sign ificant findings. Pulmonary parenchyma: Low lung volumes w ith bibasilar atelectasis. Stable perifissural nodule along LEFT major fis sure. Airways: No significant findings. Pleura: No significant findings. Lymph nodes:No significant findings. Other mediastinal structures: No signifi cant findings. Upper abdomen: Diffuse low density of li florian unchanged. Skeletal structures: No significant find ings. Procedure Note Deven Conley MD - 09/15/2016Formatt ing of this note might be different from the original. EXAMINATION: CTA chest for pulmonary art eries CLINICAL HISTORY: POD3 s/p sleeve gastre ctomy. acute ?on chronic hypoxia of unclear etiology, r/o PE TECHNIQUE: 2.5 mm thick axial contiguous sections were obtained through the chest via helical acquisition after the intravenous administration of 100 cc of Omnipaque-350. Thin-section reconstructi ons as well as coronal and sagittal MIP reformatted images were generated to aid in evaluation. COMPARISON: Chest CT 07/04/2016 FINDINGS: Pulmonary arteries:Adequate enhancement of pulmonary arteries.No pulmonary arterial filling defects. Other cardiovascular structures: No sign ificant findings. Pulmonary parenchyma: Low lung volumes w ith bibasilar atelectasis. Stable perifissural nodule along LEFT major fis sure. Airways: No significant findings. Pleura: No significant findings. Lymph nodes:No significant findings. Other mediastinal structures: No signifi cant findings. Upper abdomen: Diffuse low density of li florian unchanged. Skeletal structures: No significant find ings. IMPRESSION No pulmonary embolism identified. Deven Goodwin MD IMG CT ORDERABLES (ABNORMAL) POCT Glucose (09/15/2016 12:49 PM EST) athologist Signature POC Glucose 201 (H) 65 - 199 [facility] mg/dL [facility] Comment: Supplemental ranges: <140 mg/dL before meals <180 mg/dL all other times of the day Specimen Anatomical Collection Method Collection Time Receive d Time (Source) Location / / Volume Laterality Blood specimen 09/15/2016 12:49 6 (specimen) PM EST 12:49 PM EST Deven Goodwin MD POINT OF CARE TEST ORDERABLE S Performing Organization Address City/State/[place] [address] POCT Glucose (09/15/2016 11:25 AM EST) athologist Signature POC Glucose 182 65 - 199 [facility] mg/dL [facility] LABORATORY Comment: Supplemental ranges: <140 mg/dL before meals <180 mg/dL all other times of the day Specimen Anatomical Collection Method Collection Time Receive d Time (Source) Location / / Volume Laterality Blood specimen 09/15/2016 11:25 12 6 (specimen) AM EST 11:25 AM EST Deven Goodwin MD POINT OF CARE TEST ORDERABLE S Performing Organization Address City/State/ZIP Code Phon e Number [address] POCT Glucose (09/15/2016 9:32 AM EST) athologist Signature POC Glucose 175 65 - 199 [facility] mg/dL [facility] LAB[facility] Comment: Supplemental ranges: <140 mg/dL before meals <180 mg/dL all other times of the day Specimen Anatomical Collection Method Collection Time Receive d Time (Source) Location / / Volume Laterality Blood specimen 09/15/2016 9:32 AM 016 9:32 (specimen) EST AM EST Deven Goodwin MD POINT OF CARE TEST ORDERABLE S Performing Organization Address City/[facility]/ZIP Code Phon e Number [address] Differential, Automated (09/15/2016 8:46 AM EST) athologist [facility] Neutrophils % 55.8 % [facility] LABORATORY Neutr Abs (ANC) 4.20 1.70 - [facility] 6.10 [facility] x10(3)/[facility] LABORATORY Lymphocytes % 33.3 % [facility] LABORATORY Lymphocytes Abs 2.5 0.9 - 3.2 [facility] x10(3)/[facility] LABORATORY Monocytes % 6.8 % [facility] LABORATORY Monocyte Abs 0.5 0.3 - 0.9 [facility] x10(3)/[facility] LABORATORY Eosinophils % 2.9 % [facility] LABORATORY Eosinophils Abs 0.2 0.0 - 0.4 [facility] x10(3)/[facility] LABORATORY Basophils % 0.7 % [facility] LABORATORY Basophils Abs 0.0 0.0 - 0.1 [facility] x10(3)/[facility] LABORATORY Immature Gran % 0.50 % [facility] LABORATORY Comment: Immature granulocytes(IG's)percentage an d absolute count will include metamyelocytes, myelocytes, and promyelo cytes. Blood smears from CBCs yielding IG's will be scanned manually for concor dance. If this scan disagrees with the automated IG or if promyelocytes are not ed, a manual differential will be performed. Betzaida Gran Abs 0.04 0.00 - 0.04 x10(3)/[facility] LABORATORY Specimen Anatomical Collection Method Collection Time Receive d Time (Source) Location / / Volume Laterality Blood specimen 09/15/2016 8:46 AM 016 8:53 (specimen) EST AM EST Resulting Agency Comment Spec In Lab Deven Goodwin MD HEMATOLOGY ORDERABLES Performing Organization Address City/State/[place] [address] Hemogram (09/15/2016 8:46 AM EST) P athologist Signature WBC 7.5 4.0 - 9.5 [facility] x10(3)/[facility] LABORATORY RBC 4.54 4.00 - [facility] 5.21 [facility] x10(6)/[facility] LABORATORY Hemoglobin 13.1 11.7 - [facility] 15.5 gm/dL [facility] LABORATORY Hematocrit 38.2 35.7 - [facility] 45.8 % [facility] LABORATORY MCV 84.1 82.6 - [facility] 94.4 [facility] LABORATORY MCH 28.9 27.1 - [facility] 32.0 pg [facility] LABORATORY MCHC 34.3 31.7 - [facility] 35.0 gm/dL [facility] LABORATORY Platelets 196 145 - 357 [facility] x10(3)/[facility] LABORATORY RDWSD 42.3 37.0 - [place] [facility] 46.0 [facility] LABORATORY RDWCV 13.7 11.5 - [facility] CH[facility]STINA 14.1 % [facility] LABORATORY MPV 10.7 7.6 - 12.9 [facility] LABORATORY nRBC % Auto 0.0 % [facility] LABORATORY nRBC Abs Auto 0.000 0.000 - [facility] 0.000 [facility] x10(3)/[facility] LABORATORY Specimen Anatomical Collection Method Collection Time Receive d Time (Source) Location / / Volume Laterality Blood specimen 09/15/2016 8:46 AM 8:53 (specimen) EST AM EST Resulting Agency Comment Spec In Lab Deven Goodwin MD HEMATOLOGY ORDERABLES Performing Organization Address City/[facility]/ZIP [facility] Phon e Number [address] Phosphorus (09/15/2016 8:46 AM EST) athologist Signature Phosphorus 2.7 2.5 - 4.5 [facility] LABORATORY Specimen Anatomical Collection Method Collection Time Receive d Time (Source) Location / / Volume Laterality Blood specimen 09/15/2016 8:46 AM 016 8:53 (specimen) EST AM EST Resulting Agency Comment Spec In Lab Deven Goodwin MD CHEMISTRY ORDERABLES Performing Organization Address City/[facility] Phon e Number [address] Magnesium (09/15/2016 8:46 AM EST) athologist Signature Magnesium 0.81 0.69 - 1.07 [facility] mmol/L [facility] LABORATORY Specimen Anatomical Collection Method Collection Time Receive d Time (Source) Location / / Volume Laterality Blood specimen 09/15/2016 8:46 AM 8:53 (specimen) EST AM EST Resulting Agency Comment Spec In Lab Deven Goodwin MD CHEMISTRY ORDERABLES Performing Organization Address City/[facility] [place] [address] (ABNORMAL) Basic Metabolic Panel (non-fasting) (09/15/2016 8:46 AM EST) athologist Signature Glucose Lvl 209 (H) 65 - 199 [facility] mg/dL [facility] Comment: Diabetes: >=200 mg/dL plus symp toms BUN 7 (L) 8 - 18 mg/dL [facility] LABORATORY Creatinine 0.81 0.70 - 1.20 [facility] Comment: Please note that the pediatric reference intervals supplied above were not validated at [facility]. Results from pediatri c patients should be interpreted in conjunction to the patient's age, height and muscle mass. Sodium 137 135 - 145 mmol/L [facility] Potassium 3.6 3.5 - 5.0 mmol/L [facility] Comment: Please note: ??Patients with WBC >100,00 0 may have falsely elevated Potassium levels. ??For accurate Potassium quantif ication in these patients send serum separator tube (gold top) for subsequent determinations. ??Contact the Clinical Chemistry Laboratory if there are any qu estions. Chloride 96 (L) 98 - 107 mmol/L [facility] LABORAT[facility] CO2 27 22 - 31 mmol/L [facility] Anion Gap 14 5 - 15 mmol/L [facility] LABORATORY Calcium 9.6 8.5 - 10.5 mg/dL [facility] Estimated GFR >60 >=60 [facility]ORAT[facility] Comment: This estimated GFR (eGFR) [...] the following links into your internet browser. [email or web address] Specimen Anatomical Collection Method Collection Time Receive d Time (Source) Location / / Volume Laterality Blood specimen 09/15/2016 8:46 AM 016 8:53 (specimen) EST AM EST Resulting Agency Comment Spec In Lab Deven Goodwin MD CHEMISTRY ORDERABLES Performing Organization Address City/State/[place] [address] (ABNORMAL) POCT Glucose (09/15/2016 7:04 AM EST) P athologist Signature POC Glucose 208 (H) 65 - 199 [facility] mg/dL [facility] Comment: Supplemental ranges: <140 mg/dL before meals <180 mg/dL all other times of the day Specimen Anatomical Collection Method Collection Time Receive d Time (Source) Location / / Volume Laterality Blood specimen 09/15/2016 7:04 AM 016 7:04 (specimen) EST AM EST Deven Goodwin MD POINT OF CARE TEST ORDERABLE S Performing Organization Address City/State/ZIP Code Phon e Number [address] POCT Glucose (09/15/2016 4:12 AM EST) athologist Signature POC Glucose 161 65 - 199 [place] mg/dL [facility] Comment: Supplemental ranges: <140 mg/dL before meals <180 mg/dL all other times of the day Specimen Anatomical Collection Method Collection Time Receive d Time (Source) Location / / Volume Laterality Blood specimen 09/15/2016 4:12 AM 016 4:12 (specimen) EST AM EST Deven Goodwin MD POINT OF CARE TEST ORDERABLE S Performing Organization Address City/State/[place] [address] POCT Glucose (09/14/2016 11:46 PM EST) athologist Signature POC Glucose 176 65 - 199 [facility] mg/dL [facility] Comment: Supplemental ranges: <140 mg/dL before meals <180 mg/dL all other times of the day Specimen Anatomical Collection Method Collection Time Receive d Time (Source) Location / / Volume Laterality Blood specimen 09/14/2016 11:46 6 (specimen) PM EST 11:46 PM EST Deven Goodwin MD POINT OF CARE TEST ORDERABLE S Performing Organization Address City/State/ZIP Code Phon e Number [address] POCT Glucose (09/14/2016 7:21 PM EST) athologist Signature POC Glucose 175 65 - 199 [place] mg/dL [facility] Comment: Supplemental ranges: <140 mg/dL before meals <180 mg/dL all other times of the day Specimen Anatomical Collection Method Collection Time Receive d Time (Source) Location / / Volume Laterality Blood specimen 09/14/2016 7:21 PM 016 7:21 (specimen) EST PM EST Deven Goodwin MD POINT OF CARE TEST ORDERABLE S Performing Organization Address City/State/ZIP Code Phon e Number [address] (ABNORMAL) POCT Glucose (09/14/2016 3:54 PM EST) P athologist Signature POC Glucose 236 (H) 65 - 199 [place] mg/dL [facility] Comment: Supplemental ranges: <140 mg/dL before meals <180 mg/dL all other times of the day Specimen Anatomical Collection Method Collection Time Receive d Time (Source) Location / / Volume Laterality Blood specimen 09/14/2016 3:54 PM 016 3:54 (specimen) EST PM EST Deven Goodwin MD POINT OF CARE TEST ORDERROSALIE S Performing Organization Address City/State/[place] [address] POCT Glucose (09/14/2016 10:59 AM EST) P athologist Signature POC Glucose 193 65 - 199 [facility] Comment: Supplemental ranges: <140 mg/dL before meals <180 mg/dL all other times of the day Specimen Anatomical Collection Method Collection Time Receive d Time (Source) Location / / Volume Laterality Blood specimen 09/14/2016 10:59 6 (specimen) AM EST 10:59 AM EST Deven Goodwin MD POINT OF CARE TEST ORDERABLE S Performing Organization Address City/State/[place] [address] POCT Glucose (09/14/2016 7:25 AM EST) P athologist Signature POC Glucose 152 65 - 199 [facility] mg/dL [facility] Comment: Supplemental ranges: <140 mg/dL before meals <180 mg/dL all other times of the day Specimen Anatomical Collection Method Collection Time Receive d Time (Source) Location / / Volume Laterality Blood specimen 09/14/2016 7:25 AM 11/30/2 016 7:25 (specimen) EST AM EST Deven Goodwin MD POINT OF CARE TEST ORDERABLE S Performing Organization Address City/State/ZIP Code Phon e Number [address] POCT Glucose (09/14/2016 3:45 AM EST) P athologist Signature POC Glucose 185 65 - 199 [facility] mg/dL [facility] Comment: Supplemental ranges: <140 mg/dL before meals <180 mg/dL all other times of the day Specimen Anatomical Collection Method Collection Time Receive d Time (Source) Location / / Volume Laterality Blood specimen 09/14/2016 3:45 AM 016 3:45 (specimen) EST AM EST Deven Goodwin MD POINT OF CARE TEST ORDERABLE S Performing Organization Address City/[facility]/ZIP Code Phon e Number [address] POCT Glucose (09/13/2016 11:00 PM EST) athologist Signature POC Glucose 179 65 - 199 [place] mg/dL [facility] Comment: Supplemental ranges: <140 mg/dL before meals <180 mg/dL all other times of the day Specimen Anatomical Collection Method Collection Time Receive d Time (Source) Location / / Volume Laterality Blood specimen 09/13/2016 11:00 6 (specimen) PM EST 11:00 PM EST Deven Goodwin MD POINT OF CARE TEST ORDERABLE S Performing Organization Address City/State/ZIP Code Phon e Number [address] POCT Glucose (09/13/2016 7:09 PM EST) P athologist Signature POC Glucose 178 65 - 199 [facility] Comment: Supplemental ranges: <140 mg/dL before meals <180 mg/dL all other times of the day Specimen Anatomical Collection Method Collection Time Receive d Time (Source) Location / / Volume Laterality Blood specimen 09/13/2016 7:09 PM 016 7:09 (specimen) EST PM EST Deven Goodwin MD POINT OF CARE TEST ORDERABLE S Performing Organization Address City/State/ZIP Code Phon e Number [address] POCT Glucose (09/13/2016 3:54 PM EST) P athologist Signature POC Glucose 194 65 - 199 [place] mg/dL [facility] Comment: Supplemental ranges: <140 mg/dL before meals <180 mg/dL all other times of the day Specimen Anatomical Collection Method Collection Time Receive d Time (Source) Location / / Volume Laterality Blood specimen 09/13/2016 3:54 PM 016 3:54 (specimen) EST PM EST Deven Goodwin MD POINT OF CARE TEST ORDERABLE S Performing Organization Address City/State/ZIP Code Phon e Number [address] POCT Glucose (09/13/2016 11:18 AM EST) athologist Signature POC Glucose 199 65 - 199 [place] [facility] mg/dL [facility] Comment: Supplemental ranges: <140 mg/dL before meals <180 mg/dL all other times of the day Specimen Anatomical Collection Method Collection Time Receive d Time (Source) Location / / Volume Laterality Blood specimen 09/13/2016 11:18 6 (specimen) AM EST 11:18 AM EST Deven Goodwin MD POINT OF CARE TEST ORDERABLE S Performing Organization Address City/State/ZIP Code Phon e Number [address] POCT Glucose (09/13/2016 7:10 AM EST) P athologist Signature POC Glucose 188 65 - 199 [place] mg/dL [facility] Comment: Supplemental ranges: <140 mg/dL before meals <180 mg/dL all other times of the day Specimen Anatomical Collection Method Collection Time Receive d Time (Source) Location / / Volume Laterality Blood specimen 09/13/2016 7:10 AM 016 7:10 (specimen) EST AM EST Deven Goodwin MD POINT OF CARE TEST ORDERABLE S Performing Organization Address City/State/ZIP Code Phon e Number [place] [phone] Drive (ABNORMAL) Differential, Automated (09/13/2016 5:17 AM EST) [facility] Method Time Signature Neutrophils % 71.4 % [facility] LABORATORY Neutr Abs (ANC) 6.87 (H) 1.70 - [facility] 6.10 [facility] x10(3)/[facility] LABORATORY Lymphocytes % 19.7 % [facility] LABORATORY Lymphocytes Abs 1.9 0.9 - 3.2 [facility] x10(3)/[facility] LABORATORY Monocytes % 6.6 % [facility] LABORATORY Monocyte Abs 0.6 0.3 - 0.9 [facility] x10(3)/[facility] LABORATORY Eosinophils % 1.6 % [facility]ORATORY Eosinophils Abs 0.2 0.0 - 0.4 [facility] x10(3)/[facility] LABORATORY Basophils % 0.3 % [facility]ORATORY Basophils Abs 0.0 0.0 - 0.1 [facility] x10(3)/[facility] LABORATORY Immature Gran % 0.40 % [facility]ORY Comment: Immature granulocytes(IG's)percentage an d absolute count will include metamyelocytes, myelocytes, and promyelo cytes. Blood smears from CBCs yielding IG's will be scanned manually for concor dance. If this scan disagrees with the automated IG or if promyelocytes are not ed, a manual differential will be performed. Betzaida Gran Abs 0.04 0.00 - 0.04 x10(3)/[facility] LABORATORY Specimen Anatomical Collection Method Collection Time Receive d Time (Source) Location / / Volume Laterality Blood specimen 09/13/2016 5:17 AM 016 5:32 (specimen) EST AM EST Resulting Agency Comment Spec In Lab Cinthya Alva MD HEMATOLOGY ORDERABLES Performing Organization Address City/State/ZIP Code Phon e Number [place] [phone] (ABNORMAL) Hemogram (09/13/2016 5:17 AM EST) Analysis Performed At Patho logist Time Signature WBC 9.6 (H) 4.0 - 9.5 [facility] x10(3)/[facility] LABORATORY RBC 4.44 4.00 - [place] [place] 5.21 [facility] x10(6)/[facility] LABORATORY Hemoglobin 13.0 11.7 - [facility] 15.5 gm/dL [facility] LABOR[facility]ORY Hematocrit 37.8 35.7 - [facility] 45.8 % [facility] LABORATORY MCV 85.1 82.6 - [facility] 94.4 [facility] LABORATORY MCH 29.3 27.1 - [place] [facility] 32.0 pg [facility] LABORATORY MCHC 34.4 31.7 - [facility] 35.0 gm/dL [facility] Platelets 197 145 - 357 [facility] x10(3)/[facility] LABORATORY RDWSD 43.8 37.0 - [facility] 46.0 [facility] LABORATORY RDWCV 14.2 (H) 11.5 - [facility] 14.1 % [facility] LABORATORY MPV 11.1 7.6 - 12.9 [facility] LABORATORY nRBC % Auto 0.0 % [facility] LABORATORY nRBC Abs Auto 0.000 0.000 - [facility] x10(3)/[facility] LABORATORY Specimen Anatomical Collection Method Collection Time Receive d Time (Source) Location / / Volume Laterality Blood specimen 09/13/2016 5:17 AM 016 5:32 (specimen) EST AM EST Resulting Agency Comment Spec In Lab Cinthya Alva MD HEMATOLOGY ORDERABLES Performing Organization Address City/State/[place] [address] Phosphorus (09/13/2016 5:17 AM EST) P athologist Signature Phosphorus 3.3 2.5 - 4.5 [facility] Specimen Anatomical Collection Method Collection Time Receive d Time (Source) Location / / Volume Laterality Blood specimen 09/13/2016 5:17 AM 016 5:32 (specimen) EST AM EST Resulting Agency Comment Spec In Lab Cinthya Alva MD CHEMISTRY ORDERABLES Performing Organization Address City/State/ZIP Code Phon e Number [address] Magnesium (09/13/2016 5:17 AM EST) athologist Signature Magnesium 0.88 0.69 - 1.07 [facility] mmol/L [facility] LABOR[facility]ORY Specimen Anatomical Collection Method Collection Time Receive d Time (Source) Location / / Volume Laterality Blood specimen 09/13/2016 5:17 AM 016 5:32 (specimen) EST AM EST Resulting Agency Comment Spec In Lab Cinthya Alva MD CHEMISTRY ORDERABLES Performing Organization Address City/[facility] [place] [address] Basic Metabolic Panel (non-fasting) (09/13/2016 5:17 AM EST) athologist Signature Glucose Lvl 192 65 - 199 [facility] mg/dL [facility] Comment: Diabetes: >=200 mg/dL plus symp toms BUN 13 8 - 18 mg/dL [facility] LABORATORY Creatinine 0.79 0.70 - 1.20 mg/dL [facility] LABORATORY Comment: Please note that the pediatric reference intervals supplied above were not validated at [facility] Results from pediatri c patients should be interpreted in conjunction to the patient's age, height and muscle mass. Sodium 139 135 - 145 mmol/L [facility] Potassium 4.1 3.5 - 5.0 mmol/L [facility] Comment: Please note: ??Patients with WBC >100,00 0 may have falsely elevated Potassium levels. ??For accurate Potassium quantif ication in these patients send serum separator tube (gold top) for subsequent determinations. ??Contact the Clinical Chemistry Laboratory if there are any qu estions. Chloride 100 98 - 107 mmol/L [facility]OR[facility] CO2 27 22 - 31 mmol/L [facility] Anion Gap 12 5 - 15 mmol/L [facility] LABORATORY Calcium 9.7 8.5 - 10.5 mg/dL [facility] Estimated GFR >60 >=60 [facility] Comment: This estimated GFR (eGFR) [...] the following links into your internet browser. [email or web address] Specimen Anatomical Collection Method Collection Time Receive d Time (Source) Location / / Volume Laterality Blood specimen 09/13/2016 5:17 AM 016 5:32 (specimen) EST AM EST Resulting Agency Comment Spec In Lab Cinthya Alva MD CHEMISTRY ORDERABLES Performing Organization Address City/[facility]/ZIP Code Phon e Number [address] POCT Glucose (09/13/2016 4:21 AM EST) P athologist Signature POC Glucose 174 65 - 199 [facility] mg[facility]dL [facility] Comment: Supplemental ranges: <140 mg/dL before meals <180 mg/dL all other times of the day Specimen Anatomical Collection Method Collection Time Receive d Time (Source) Location / / Volume Laterality Blood specimen 09/13/2016 4:21 AM 016 4:21 (specimen) EST AM EST Deven Goodwin MD POINT OF CARE TEST ORDERABLE S Performing Organization Address City/[facility] Phon e Number [address] POCT Glucose (09/12/2016 11:29 PM EST) P athologist Signature POC Glucose 194 65 - 199 [facility] mg/dL [facility] Comment: Supplemental ranges: <140 mg/dL before meals <180 mg/dL all other times of the day Specimen Anatomical Collection Method Collection Time Receive d Time (Source) Location / / Volume Laterality Blood specimen 09/12/2016 11:29 6 (specimen) PM EST 11:29 PM EST Deven Goodwin MD POINT OF CARE TEST ORDERABLE S Performing Organization Address City/State/[place] [address] POCT Glucose (09/12/2016 7:23 PM EST) P athologist Signature POC Glucose 198 65 - 199 [place]STINA mg/dL [facility] Comment: Supplemental ranges: <140 mg/dL before meals <180 mg/dL all other times of the day Specimen Anatomical Collection Method Collection Time Receive d Time (Source) Location / / Volume Laterality Blood specimen 09/12/2016 7:23 PM 016 7:23 (specimen) EST PM EST Deven Goodwin MD POINT OF CARE TEST ORDERABLE S Performing Organization Address City/State/[place] [address] (ABNORMAL) POCT Glucose (09/12/2016 5:00 PM EST) P athologist Signature POC Glucose 206 (H) 65 - 199 [facility] CHRISTINA mg/dL [facility] Comment: Supplemental ranges: <140 mg/dL before meals <180 mg/dL all other times of the day Specimen Anatomical Collection Method Collection Time Receive d Time (Source) Location / / Volume Laterality Blood specimen 09/12/2016 5:00 PM 016 5:00 (specimen) EST PM EST Deven Goodwin MD POINT OF CARE TEST ORDERABLE S Performing Organization Address City/State/[place] [address] (ABNORMAL) POCT Glucose (09/12/2016 1:49 PM EST) P athologist Signature POC Glucose 207 (H) 65 - 199 [facility] CHRISTINA mg/dL [facility] Comment: Supplemental ranges: <140 mg/dL before meals <180 mg/dL all other times of the day Specimen Anatomical Collection Method Collection Time Receive d Time (Source) Location / / Volume Laterality Blood specimen 09/12/2016 1:49 PM 016 1:49 (specimen) EST PM EST Deven Goodwin MD POINT OF CARE TEST ORDERABLE S Performing Organization Address City/State/[place] [address] Surgical Pathology Report (09/12/2016 1:06 PM EST) Component Value Ref Test Analysis Performed At [facility] gist Range Method Time Signature Surgical [id number] ?Location: 4WST; 0411; A [facility] Report The signing pathologist has (i) examined the relevant preparation(s) for the [facility] specimen(s) and (ii) rendered or confirmed the diagnosis(es) . [facility]PITAL [facility]ORY . ?Surgic al Pathology DIAGNOSIS Stomach, resection: Segment of stomach showing g astric fundic gland mucosa with mild chronic nonspecific gastritis. No H. pylori-like microorganism is seen. Electronically signed by: ??Shobha Cha MD Verified: ??09/15/2016 ?Pathologist ADDITIONAL STUDIES Immunohistochemistry Studies: Formalin-fixed, paraffin-emb edded tissue sections are studied using the polymer system technique with appro priate positive and negative controls. ?These IHC studies provide the pathologist wit h adjunctive diagnostic information. Antibody specificity has been verified by testin g antibodies on a series of in-house tissues with known immunohistochemical perform ance characteristics. The clinical interpretation of any antibody positive stain ing or its absence is evaluated within the context of clinical presentation, morp hology, histopathological criteria and other diagnostic tests. Block ? Antibody ?Result (Positive/Negative) A1 ? H. pylori ?Negative ? CD3 ?Positive, focal, mixed nor mal population ? CD5 ?Positive, focal, mixed nor mal population ? CD20 ? Positive, focal, mixed norm al population CLINICAL INFORMATION Specimen Submitted: A - Stomach Clinical History: Obesity Clinical Diagnosis: Obesity SPECIMEN PROCESSING A - Labeled/Fixative: Stomach, fresh. SPECIMEN DESCRIPTION Resection Specimen: Intact, not oriented, roughly cylindrical partial gastrectomy. Size: 21.5 x 4.5 x 3.0 cm. Serosa: Intact, pink and congested without gross lesions. Mucosa: Congested and red-brown with prominent, unremarkable rugae. Wall Thickness: Average 0.3 cm. Sections/ Processing: Client Relations Representative sections are submitted. (1-2) customer retention representative margin; (3) customer retention representative mucosa. (R3) ??shb Specimen (Source) Anatomical Collection Method Collection Time Re ceived Time Location / / Volume Laterality 09/12/2016 1:06 PM EST Deven Goodwin MD PATHOLOGY/CYTOLOGY ORDERABLE S Performing Organization Address City/[facility]/[place]IP [place] [address] Specimen to Pathology (surgical or derm) (09/12/2016 1:06 PM EST) Specimen Anatomical Collection Method Collection Time Receive d Time (Source) Location / / Volume Laterality AP Specimen 09/12/2016 1:06 PM 6 1:06 EST PM EST Narrative [facility] - 09/12/2016 1:06 PM EST Specimen requisition ordered. ??Separate Pathology report to follow Deven Goodwin MD PATHOLOGY/CYTOLOGY ORDERABLE S Performing Organization Address City/[facility] [place] [address] documented in this encounter Visit Diagnoses Not on filedocumented in this encounter Admitting Diagnoses Diagnosis Obesity Obesity, unspecified documented in this encounter Administered Medications Inactive Administered Medications - up to 3 most recent administrations Medication Order MAR Action Action Date Dose Rate Site acetaminophen (TYLENOL) 650 Given 09/15/2016 10:27 AM EST 650 mg mg/20.3 mL oral liquid 650 mg 650 mg, Oral, EVERY 4 HOURS PRN, Starting on Mon09/13/16 at 1600, Until Mon09/15/16 at 2135, Fever, Maximum dose of acetaminophen is 4000 mg from all sources in 24 hours. , Routine Given 09/15/2016 4:17 AM EST 650 mg Given 09/14/2016 11:05 AM EST 650 mg atenolol (TENORMIN) tablet 75 mg Given 09/15/2016 10:04 AM EST 75 mg 75 mg, Oral, DAILY, First dose (after last modification) on Mon09/15/16 at 0900, Until Discontinued, Routine BUpivacaine (PF) (MARCAINE) Given 09/12/2016 11:50 AM 15 mg 19- Surgical Site 0.25 % (2.5 mg/mL) injection EST ONCE PRN, Starting on Mon09/12/16 at 1150, Until Mon09/15/16 at 2135, Intra-Operative (Intra-Procedure), Routine Given 09/12/2016 11:25 AM EST 6 mg 19- Surgical Site dextrose 50% injection 25-50 mL 25-50 mL (12.5-25 g), Intravenous, EVERY 1 HOUR PRN, Starting on Mon09/12/16 at 1415, Until Mon09/15/16 at 2135, Low blo od sugar, For BG 50-70: 120 mL Juice or Regular (not diet) soda OR 12.5 gram (25 mL) Dextrose 50% IV OR, if no IV access, 1 mg Glucagon IM. Recheck BG in 30 minut es. May repeat juice, dextrose or glucagon once per episode For BG less than 50: 240 mL Juice or Regular (not diet) soda OR 25 grams (50 mL) Dextrose 50% IV OR, if no IV access, 1 mg Glucagon IM. Recheck BG in 30 minutes. May repeat juice, dext gabino, or glucagon once per episode. To avoid extravasation, push Dextrose 50% SLOWLY (3 mL ov er 1 minute) in a patent, running IV, preferably a central line. For persisten t hypoglycemia, consider longer-acting treatment for the duration of the active insulin., Routine enoxaparin (LOVENOX) injection 40 mg Given 09/15/2016 10:13 AM EST 40 mg 40 mg, Subcutaneous, 2 TIMES DAILY, First dose on Mon09/12/16 at 2100, Until Discontinued, Routine Given 09/14/2016 8:18 PM EST 40 mg Right Lower Quadrant Given 09/14/2016 8:24 AM EST 40 mg fluticasone-salmeterol (ADVAIR HFA) 115-21 Given 09/15 10:07 AM EST 2 puffs mcg/actuation inhaler 2 puff 2 puff, Inhalation, DAILY, First dose on Mon09/13/16 at 0900, Until Discontinued, Rinse mouth after administration. Formulary auto-substitution for Symbicort 160-4.5 once daily. gabapentin (NEURONTIN) capsule 100 mg Given 09/15/2016 3:28 PM EST 100 mg 100 mg, Oral, 3 TIMES DAILY, First dose (after last reorder) on Mon09/13/16 at 2100, Until Discontinued, Routine Given 09/15/2016 10:04 AM EST 100 mg Given 09/14/2016 8:20 PM EST 100 mg glucagon (human recombinant) injection 1 mg 1 mg, Intramuscular, EVERY 1 HOUR PRN, L ow blood sugar, Starting on Mon09/12/16 at 1415, Until Arlen 09/15/16 at 2135, For B G 50-70: 120 mL Juice or Regular (not diet) soda OR 12.5 gram (25 mL) Dextrose 50% I V OR, if no IV access, 1 mg Glucagon IM. Recheck BG in 30 minutes. May repeat j uice, dextrose or glucagon once per episode For BG less than 50: 240 mL Juice or R egular (not diet) soda OR 25 grams (50 mL) Dextrose 50% IV OR, if no IV access, 1 m g Glucagon IM. Recheck BG in 30 minutes. May repeat juice, dextrose, or glucagon once per episode. To avoid extravasation, push Dextrose 50% SLOWLY (3 mL over 1 mi nute) in a patent, running IV, preferably a central line. For persistent hypoglyce cezar, consider longer-acting treatment for the duration of the active insulin. HYDROmorphone (DILAUDID) tablet 2-4 mg Given 09/15/2016 2:17 AM EST 4 mg 2-4 mg, Oral, EVERY 4 HOURS PRN, Starting on Mon09/13/16 at 2000, Until Mon09/15/16 at 2135, Pain, Give 2mg for moderate pain 3-6 Give 4mg for severe pain 7-10, Routine Given 09/14/2016 3:46 AM EST 4 mg Given 09/13/2016 10:57 PM EST 4 mg insulin lispro (humaLOG) VIAL injection 1-4 Given 10/2015 4:32 PM EST 2 Units Units 1-4 Units, Subcutaneous, EVERY 4 HOURS, First dose (after last modification) on Mon09/12/16 at 2030, Until Discontinued, CORRECTION BOLUS Sensitive to insulin lean patient or total daily dose of all insulin needed to achieve glycemic control less than 30 units BG 140 - 160 Give 1 unit BG 161 - 200 Give 2 units BG 201 - 240 Give 3 units BG greater than 240, give 4 units and recheck BG in 2 hours. If BG remains greater than 240, repeat 4 units (no more than three times) & call for new basal insulin orders. If less than 240 after two hours, give no insulin and resume prior schedule., Routine Given 09/15/2016 12:51 PM EST 3 Units Given 09/15/2016 8:00 AM EST 3 Units levothyroxine (SYNTHROID) tablet 250 mcg Given 09/15/2016 5:39 AM EST 250 mcg 250 mcg, Oral, EVERY MORNING, First dose (after last reorder) on Mon09/13/16 at 0600, Until Discontinued Given 09/14/2016 5:10 AM EST 250 mcg Given 09/13/2016 6:35 AM EST 250 mcg ondansetron (ZOFRAN-ODT) oral disintegrating Given 09/14/2016 8: 25 AM EST 4 mg tablet 4 mg 4 mg, Oral, EVERY 8 HOURS PRN, Starting on Mon09/13/16 at 0715, Until Arlen 09/15/16 at 2135, Nausea, If nausea not relieved after 30 minutes may repeat dose x 1. Total 8 mg per 8 hours., Routine Given 09/13/2016 10:01 AM EST 4 mg pantoprazole (PROTONIX) injection 40 mg Given 09/15/2016 10:07 AM EST 40 mg 40 mg, Intravenous, DAILY, First dose on Mon09/12/16 at 1700, Until Discontinued, Reconstitute with 10 mL of normal saline to a concentration of 4 mg/mL and infuse slowly over 2 minutes. , Routine Given 09/14/2016 8:24 AM EST 40 mg Given 09/13/2016 9:34 AM EST 40 mg polyethylene glycol (MIRALAX) packet 17 g Given 09/15/2016 9:00 AM EST 17 g 17 g, Oral, DAILY, First dose (after last modification) on Mon09/14/16 at 0730, Until Discontinued, Please give this morning 09/14, Routine Given 09/14/2016 7:33 AM EST 17 g sodium chloride 0.9 % flush 5 mL Given 09/15/2016 10:08 AM EST 5 mLs 5 mL, Intravenous, 2 TIMES DAILY, First dose on Mon09/12/16 at 2100, Until Discontinued, Recovery (Recovery-Hospital Unit), Routine Given 09/14/2016 8:20 PM EST 5 mLs Given 09/14/2016 8:25 AM EST 5 mLs traMADol (ULTRAM) tablet 50 mg Given 09/14/2016 11:47 PM EST 50 mg 50 mg, Oral, EVERY 6 HOURS PRN, Starting on Mon09/14/16 at 1451, Until Arlen 09/15/16 at 2135, Pain, Routine Given 09/14/2016 3:33 PM EST 50 mg documented in this encounter Active and Recently Administered Medications Times are shown in EST. Scheduled Medication Order 09/13/2016 09/14/2016 09/15/2016 acetaminophen (OFIRMEV) injection 1,000 mg (COMPLETED) 0735 (Given - Provider: Rosa Boyd RN) 1,000 mg, Intravenous, at 400 mL/hr, NAOMI RY 8 HOURS SCHEDULED, 3 doses, First dose on Mon09/12/16 at 1445, Last dose on Mon09/13/16 at 0800, Routine atenolol (TENORMIN) tablet 50 mg (CANCELED) 0933 (Give n - Provider: Rosa Boyd, DEBBIE) 50 mg, Oral, DAILY, First dose on Mon at 0900, Until Discontinued, Routine atenolol (TENORMIN) tablet 50 mg (CANCELED) 0823 (Given - Provider: Rosa Boyd, DEBBIE) 50 mg, Oral, DAILY, First dose on Mon at 0900, Until Discontinued, Routine atenolol (TENORMIN) tablet 75 mg 1004 (Given - Provider: Suzanne Pace RN) 75 mg, Oral, DAILY, First dose on Mon at 0900, Until Discontinued, Routine enoxaparin (LOVENOX) injection 40 mg 933 (Given - Pro vider: Rosa Boyd RN)2024 (Given - Provider: Helen Silver, RN) 0824 (Given - Provider: Rosa Boyd, DEBBIE)2017 (Given - Provider: Jennifer Azul RN) 1013 (Given - Provider: Suzanne Pace RN) 40 mg, Subcutaneous, 2 TIMES DAILY, Firs t dose on Mon09/12/16 at 2100, Until Discontinued, Routine fluticasone-salmeterol (ADVAIR HFA) 115-21 mcg/actuati on inhaler 2 puff 933 (Not Given - Provider: Rosa Boyd RN - Reason: Patient/family refused) 0900 (Not Given - Provider: Rosa Boyd RN - Reason: Patient/family refused) 1007 (Given - Provider: Suzanne Pace RN) 2 puff, Inhalation, DAILY, First dose on Mon09/13/16 at 0900, Until Discontinued, Rinse mouth after administration. Formulary auto-substitution for Symbicort 160-4.5 once daily., Routine gabapentin (NEURONTIN) 300 mg/6 mL (6 mL) oral liquid 100 mg (CANCELED) 933 (Given - Provider: Rosa Boyd RN)1559 (Given - Provider: Marina Wells, DEBBIE) 100 mg, Oral, 3 TIMES DAILY, First dose on Mon09/13/16 at 0900, Until Discontinued, Routine gabapentin (NEURONTIN) capsule 100 mg 2024 (Given - Pr ovider: Helen Silver, RN) 0823 (Given - Provider: Rosa Boyd RN)1533 (Given - Provider: Rosa Boyd RN)2019 (Given - Provider: Jennifer Azul RN) 1004 (Given - Provider: Suzanne Pace, DEBBIE)1528 (Given - Provider: Suzanne Pace, DEBBIE) 100 mg, Oral, 3 TIMES DAILY, First dose on Mon09/13/16 at 2100, Until Discontinued, Routine HYDROmorphone (DILAUDID) tablet 4 mg (COMPLETED) 1354 (Given - Provider: Rosa Boyd, DEBBIE) 4 mg, Oral, ONCE, 1 dose, Mon09/13/16 at 1400, Routine insulin lispro (humaLOG) VIAL injection 1-4 Units(Link ed Group 1) 0424 (Given - Provider: Helen Silver, DEBBIE)0735 (Given - Provider: Rosa Boyd, DEBBIE)1135 (Given - Provider: Rosa Boyd RN)1615 (Given - Provider: Rosa Boyd RN)1921 (Given - Provider: Helen Silver, DEBBIE) 0345 (Given - Provider: Helen Silver, DEBBIE)0733 (Given - Provider: Rosa Boyd RN)1105 (Given - Provider: Rosa Boyd RN)1557 (Given - Provider: Rosa Boyd, DEBBIE)2017 (Given - Provider: Jennifer Azul RN) 0416 (Given - Provider: Jennifer Azul RN)0800 (Given - Provider: Suzanne Pace, DEBBIE)1251 (Given - Provider: Gena Umana, DEBBIE)1632 (Given - Provider: Suzanne Pace, DEBBIE) 1-4 Units, Subcutaneous, EVERY 4 HOURS, First dose on Mon09/12/16 at 2030, Until Discontinued, CORRECTION BOLUS Sensitive to insulin lean patient or total daily dose of all insulin needed to achiev 2300 (Given - Provider: Helen Silver RN) 2350 (Given - Provider: Jennifer Azul RN) e glycemic control less than 30 units BG 140 - 160 Give 1 unit BG 161 - 200 Give 2 units BG 201 - 240 Give 3 units BG greater than 240, give 4 units and recheck BG in 2 hours. If BG remains greater than 240, repeat 4 units (no more than three times) & call for new basal insulin orders. If less than 240 after two hours, give no insulin and resume prior schedule., Routine ketorolac (TORADOL) injection 30 mg (COMPLETED) 0208 (Given - Provider: Helen Silver, DEBBIE) 30 mg, Intravenous, ONCE, 1 dose, Mon09/14/16 at 0230, Routine levothyroxine (SYNTHROID) tablet 250 mcg 0635 (Given - Provider: Helen Silver, RN) 0510 (Given - Provider: Helen Silver, RN) 0539 (Give n - Provider: Jennifer Azul, RN) 250 mcg, Oral, EVERY MORNING, First dose on Mon09/13/16 at 0600, Until Discontinued, Routine loratadine (CLARITIN) tablet 10 mg 0933 (Not Given - P rovider: Rosa Boyd RN - Reason: Patient/family refused) 0900 (Not Given - Provider: Rosa Boyd RN - Reason: Patient/family refused) 0900 (Not Given - Provider: Suzanne Pace RN - Reason: Patient/family refused) 10 mg, Oral, DAILY, First dose on Mon09/13/16 at 0900, Until Di scontinued magnesium sulfate 2 g in sterile water 50 mL (COMPLETE D) 1830 (Given - Provider: Rosa Boyd RN) 2 g, Intravenous, ONCE, 1 dose, 08/17 at 1830, Administer over 120 Minutes pantoprazole (PROTONIX) injection 40 mg 0934 (Given - Provider: Rosa Boyd RN) 0824 (Given - Provider: Rosa Boyd RN) 1007 (Gi rajinder - Provider: Suzanne Pace, DEBBIE) 40 mg, Intravenous, DAILY, First dose on Mon09/12/16 at 1700, Until Discontinued, Reconstitute with 10 mL of normal saline to a concentration of 4 mg/mL and infuse slowly over 2 minutes. , Routine polyethylene glycol (MIRALAX) packet 17 g 0733 (Given - Provider: Rosa Boyd, DEBBIE) 0900 (Given - Provider: Suzanne Pace, DEBBIE) 17 g, Oral, DAILY, First dose on Mon at 0730, Until Discontinued, Please give this morning 09/14, Routine sodium chloride 0.9 % flush 5 mL 0935 (Given - Provide r: Rosa Boyd RN)2026 (Given - Provider: Helen Silver, DEBBIE) 0825 (Given - Provider: Rosa Boyd RN)2019 (Given - Provider: Jennifer Azul RN) 1008 (Given - Provider: Suzanne Pace, DEBBIE) 5 mL, Intravenous, 2 TIMES DAILY, First dose on Mon09/12/16 at 2100, Until Discontinued, Recovery (Recovery-Hospital Unit), Routine Continuous Medication Order 09/13/2016 09/14/2016 09/15/2016 lactated ringers infusion 1,000 mL (CANCELED) 0932 (Ne w Bag - Provider: Rosa Boyd, DEBBIE) 1,000 mL, at 100 mL/hr, Intravenous, CON TINUOUS, Starting Mon09/12/16 at 1430, Until Mon09/13/16 at 1625, Recovery (Recovery-Hospital Unit) PRN Medication Order 09/13/2016 09/14/2016 09/15/2016 acetaminophen (TYLENOL) 650 mg/20.3 mL oral liquid 650 mg 1750 (Given - Provider: Rosa Boyd RN) 1105 (Given - Provider: Rosa Boyd RN) 0417 (Given - Provider: Jennifer Azul RN)1027 (Given - Provider: Suzanne Pace RN) 650 mg, Oral, EVERY 4 HOURS PRN, Startin g Mon09/13/16 at 1600, Until Arlen 09/15/16 at 2135, Fever, Maximum dose of acetaminophen is 4000 mg from all sources in 24 hours. , Routine dextrose 50% injection 25-50 mL(Linked Group 2) 25-50 mL (12.5-25 g), Intravenous, EVERY 1 HOUR PRN, Starting Mon09/12/16 at 1415, Until Arlen 09/15/16 at 2135, Low blood sugar, For BG 50-70: 120 mL Juice or Regular (not diet) soda OR 12.5 gram (25 m L) Dextrose 50% IV OR, if no IV access, 1 mg Glucagon IM. Recheck BG in 30 minutes. May repeat juice, dextrose or glucagon once per episode For BG less than 50: 240 mL Juice or Regular (not diet) so da OR 25 grams (50 mL) Dextrose 50% IV O R, if no IV access, 1 mg Glucagon IM. Recheck BG in 30 minutes. May repeat juice, dextrose, or glucagon once per episode. To avoid extravasation, push Dextros e 50% SLOWLY (3 mL over 1 minute) in a p atent, running IV, preferably a central line. For persistent hypoglycemia, consider longer-acting treatment for the duration of the active insulin., Routine diphenhydrAMINE (BENADRYL) injection 25 mg 25 mg, Intravenous, EVERY 6 HOURS PRN, S tarting Mon09/12/16 at 1415, Until Arlen 09/15/16 at 2135, Itching, Routine glucagon (human recombinant) injection 1 mg(Linked Group 2) 1 mg, Intramuscular, EVERY 1 HOUR PRN, S tarting Mon09/12/16 at 1415, Until Arlen 09/15/16 at 2135, Low blood sugar, For BG 50-70: 120 mL Juice or Regular (not diet) soda OR 12.5 gram (25 mL) Dextrose 50 % IV OR, if no IV access, 1 mg Glucagon IM. Recheck BG in 30 minutes. May repeat juice, dextrose or glucagon once per episode For BG less than 50: 240 mL Juice or Regular (not diet) soda OR 25 grams (50 mL) Dextrose 50% IV OR, if no IV ac cess, 1 mg Glucagon IM. Recheck BG in 30 minutes. May repeat juice, dextrose, or glucagon once per episode. To avoid extravasation, push Dextrose 50% SLOWLY ( 3 mL over 1 minute) in a patent, running IV, preferably a central line. For persistent hypoglycemia, consider longer-acting treatment for the duration of the active insulin. , Routine HYDROmorphone (DILAUDID) oral liquid 2 mg (CANCELED) 0 952 (Given - Provider: Rosa Boyd RN) 2 mg, Oral, EVERY 4 HOURS PRN, Starting Mon09/13/16 at 0724, Until Mon09/13/16 at 1531, Pain, Routine HYDROmorphone (DILAUDID) oral liquid 2-4 mg (CANCELED) 1559 (Given - Provider: Marina Wells RN) 2-4 mg, Oral, EVERY 4 HOURS PRN, Startin g Mon09/13/16 at 1600, Until Mon09/13/16 at 1637, Pain, Give 2mg for moderate pain 3-6 Give 4mg for severe pain 7-10, Routine HYDROmorphone (DILAUDID) tablet 2-4 mg 1901 (Given - P rovider: Rosa Boyd RN)2257 (Given - Provider: Helen Silver RN) 0346 (Given - Provider: Helen Silver, DEBBIE) 0217 (Given - Provider: Jennifer Azul RN) 2-4 mg, Oral, EVERY 4 HOURS PRN, Startin g Mon09/13/16 at 2000, Until Arlen 09/15/16 at 2135, Pain, Give 2mg for moderate pain 3-6 Give 4mg for severe pain 7-10, Routine iohexol (OMNIPAQUE) 350 mg/mL solution 35,000 mg (COMPLETED) 1551 (Given - Provider: Karina Hurst) 35,000 mg (100 mL), Intravenous, ONCE AL N, 1 dose, Starting Arlen 09/15/16 at 1551, Until Arlen 09/15/16 at 1551, Per Protocol, Warning Vesicant/Irritant Medication , Routine lidocaine (XYLOCAINE) 10 mg/mL (1 %) injection 3 mg 3 mg (0.3 mL), Subcutaneous, ONCE PRN, 1 dose, Starting Mon09/12/16 at 1615, Until Arlen 09/15/16 at 2135, for discomfort with PIV insertion, Recovery (Recovery-Hospital Unit), Routine ondansetron (ZOFRAN-ODT) oral disintegrating tablet 4 mg 1001 (Given - Provider: Rosa Boyd RN) 0825 (Given - Provider: Rosa Boyd RN) 4 mg, Oral, EVERY 8 HOURS PRN, Starting Mon09/13/16 at 0715, Until Arlen 09/15/16 at 2135, Nausea, If nausea not relieved after 30 minutes may repeat dose x 1. Total 8 mg per 8 hours., Routine prochlorperazine (COMPAZINE) injection 10 mg (CANCELED) 020 (Given - Provider: Helen Silver, DEBBIE) 10 mg, Intravenous, EVERY 4 HOURS PRN, S tarting Mon09/14/16 at 0202, Until Mon09/14/16 at 0706, Nausea, STAT sodium chloride 0.9 % flush 5-20 mL 5-20 mL, Intravenous, EVERY 1 MIN PRN, S tarting Mon09/12/16 at 1615, Until Mon09/15/16 at 2135, flush, Flush pertains to all indwelling lines. Flush per protocol found in the job aid using the link pro vided on this medication record., Recovery (Recovery-Hospital Un it), Routine traMADol (ULTRAM) tablet 50 mg 1533 (Giv en - Provider: Rosa Boyd, RN)2347 (Given - Provider: Jennifer Azul RN) 50 mg, Oral, EVERY 6 HOURS PRN, Starting Mon09/14/16 at 1451, Until Mon09/15/16 at 2135, Pain, Routine Linked Groups Order Group 1: POCT Fingerstick Glucose (CANCELED) Routine, EVERY 4 HOURS, First occurrence on Mon09/12/16 at 2000, Until Specified And insulin lispro (humaLOG) VIAL injection 1-4 UnitsJump to med 1-4 Units, Subcutaneous, EVERY 4 HOURS, First dose on Mon09/12/16 at 2030, Until Discontinued
CORRECTION BOLUS Sensitive to insulin lean patient or total daily dose of a ll insulin needed to achieve glycemic co ntrol less than 30 units BG 140 - 160 Give 1 unit BG 161 - 200 Give 2 units BG 201 - 240 Give 3 units &nbs p; BG greater than 240, give 4 unit s and recheck BG in 2 hours. If BG remains greater than 240, repeat 4 units (no more than three times) & call for new basal insulin orders. & amp;nbsp;If less than 240 after two hour s, give no insulin and resume prior schedule.
Routine Group 2: dextrose 50% injection 25-50 mLJump to med 25-50 mL (12.5-25 g), Intravenous, EVERY 1 HOUR PRN, Starting Mon09/12/16 at 1415, Until Mon09/15/16 at 2135, Low blood sugar
For BG 50- 70: 120 mL Juice or Regular (not di et) soda OR 12.5 gram (25 mL) Dextrose 5 0% IV OR, if no IV access, 1 mg Glucagon IM. Recheck BG in 30 minutes. May repeat juice, dextrose or glucagon once per epi sode For BG less than 50: 240 mL Juice or Regular (not diet) soda OR 25 grams (50 mL) Dextrose 50% IV OR, if no IV access, 1 mg Glucagon IM. Recheck BG in 30 minutes. &amp ;nbsp;May repeat juice, dextrose, or glu cagon once per episode. To avoid extravasation, push Dextrose 50% SLOWLY (3 mL over 1 minute) in a patent, running IV, preferably a central line.&n bsp;For persistent hypoglycemia, consi michael longer-acting treatment for the duration of the active insulin.
Routine Or glucagon (human recombinant) injection 1 mgJump to med 1 mg, Intramuscular, EVERY 1 HOUR PRN, S tarting 09/12/16 at 1415, Until Arlen 09/15/16 at 2135, Low blood sugar
For BG 50-70: 120 mL Juice or Regular (not diet) soda OR 12 .5 gram (25 mL) Dextrose 50% IV OR, if n o IV access, 1 mg Glucagon IM. Recheck BG in 30 minutes. May repeat juice, dextrose or glucagon once per episode For BG less than 50: 240 mL Juice or R egular (not diet) soda OR 25 grams (50 mL) Dextrose 50% IV OR, if no IV access, 1 mg Glucagon IM. Recheck BG in 30 minutes. May repe at juice, dextrose, or glucagon once per episode. To avoid extravasation, push Dextrose 50% SLOWLY (3 mL over 1 minute) in a patent, running IV, preferably a central line. For pers istent hypoglycemia, consider longer-act ing treatment for the duration of the active insulin.
Routine documented in this encounter Care Teams Machine Splitter Relationship Specialty Start Date End Date Zhanna Francois APRN PCP - General 01/27/15 05/15/19 documented as of this encounter
--- OUTSIDE RECORDS SUMMARY | 2022-09-16 12:29 | XMS_ITS | Encounter Summary ---
:1965 Author Organization [facility] [place] [address] Care Team Providers Name Role Phone AlessandroZhanna [...] Expiration Date Visits Requ ested Visits Authorized [id number] 1 1 Encounter Details Date Type Department Care Team Description 09/12/2016 - Hospital [facility] Kirti, Idiopathic slee p 09/15/2016 Encounter [facility] Deven Walsh MD related nonobstructive Hospital [facility] [address] [place] [phone] Social History Tobacco Use Types Packs/Day Years Used Date Smoking Tobacco: Never Smokeless Tobacco: Never Alcohol Use Standard Drinks/Week Comments No 0 (1 standard drink = 0.6 oz pure alcoho l) Sex Assigned at Date Recorded Not on file documented as of this encounter Last Filed Vital Signs Vital Sign Reading Time Taken Comments Blood Pressure 111/61 09/15/2016 4:26 PM EST Pulse 73 09/12/2016 3:30 PM EST Temperature 37.2 ??C (99 ??F) 09/15/2016 4:26 PM EST Respiratory Rate 16 09/15/2016 4:26 PM EST Oxygen Saturation 95% 09/15/2016 4:26 PM EST Inhaled Oxygen Concentration - - [...] LONGITUDINAL GASTRECTOMY - LATEX VALDEZ REPLACED WITH SCC-TJOCC-SA HOVERMATT OR BARIATRIC SLIPP ENDOSCOPY, UPPER GI, DIAGNOSTIC, WITH OR WITHOUT SPECIMENS Surgeons: Surgeon(s) and Role: * Deven Goodwin MD - Primary * Cinthya Alva MD - Fellow History of Present Illness (per Dr. Goodwin's clinic H&P 08/17/16): Ruth Galeana is a 51-year-old female who is here to discuss bariatric surgery. At this point, she has had full participation in the [facility] Bariatric Surgery program and meets NIH criteria for weight loss surgery. She is interested in a Escobar-en-Y gastric bypass. I spent 25 minutes with her today, the entire time in tglf-wj-[id number] conversation regarding risks and benefits of different [...] in detail the risk section of the [facility] bariatric surgery manual for both gastric bypass [...] mouth once a week for 24 doses. [id number] Units Quantity: 12 capsule Refills: 1 * [...] Dept Phone 10/05/2016 10:00 AM Lluvia Vargas CUSTOM FEED MILL OPERATOR HELPER Endocrinology [phone] 10/05/2016 11:20 AM Luisa Herrmann LD; Deven Goodwin MD General Surgery [phone] 01/04/2017 9:00 AM Luias Herrmann LD; Lotus Busby APRN General Surgery [phone] Future Orders Complete By Expires HOME OXYGEN [...] (if performed) 3 - Signed and dated xqzk-dy-vbmk evaluation documenting the need for Oxygen Scheduling Instructions: Comments: Ruth Galeana Diagnosis: idiopathic Duration of use: 1 year Frequency of use: continuous PECOS enrolled: Yes PECOS # [id number] Questions: Vendor Name/Contact information: [employer] Rate (LPM): 1 Route: Nasal Hours per day of useage: 24 # months service is needed (99= lifetime): 12 Portable needed: Yes SPO2 performed on Room Air?: SPO2 performed with Supplemental Oxygen?: Nocturnal testing performed?: Oxygen Conserving Device (OCD) needed?: Instructions Given to Patient at Discharge: Patient Instructions BARIATRIC SURGERY DISCHARGE INFORMATION CONTACT INFORMATION: [phone] Surgeon: Dr. Goodwin [phone] Boiler Out: [phone] (Monday through Monday, 8:00 AM -5:00 PM) Dietitians: [phone] Non-business hours: [phone], ask for general surgeon process control technician FOR EMERGENCIES: CALL [phone] (trouble breathing, chest [...] page 82. The prescription is sent to [facility] Pharmacy IF YOU ARE TREATED FOR OBSTRUCTIVE [...] Follow up with primary care provider or boarding specialist in 1-2 weeks. Bring meter to [...] Department Dept Phone 10/05/2016 10:00 AM Lluvia Vagras APRN Endocrinology [phone] 10/05/2016 11:20 AM Luisa Herrmann LD; Deven Goodwin MD General Surgery [phone] 01/04/2017 9:00 AM Luisa Herrmann LD; Lotus Busby APRN General Surgery [phone] Future Orders Complete By Expires HOME OXYGEN [...] (if performed) 3 - Signed and dated rare-uh-brqx evaluation documenting the need for Oxygen Scheduling Instructions: Comments: Ruth Galeana Diagnosis: idiopathic Duration of use: 1 year Frequency of use: continuous PECOS enrolled: Yes PECOS # [id number] Questions: Vendor Name/Contact information: [employer] Rate (LPM): 1 Route: Nasal Hours per day of useage: 24 # months service is needed (99= lifetime): 12 Portable needed: Yes SPO2 performed on Room Air?: SPO2 performed with Supplemental Oxygen?: Nocturnal testing performed?: Oxygen Conserving Device (OCD) needed?: Signed: DYLAN BRYANT MD 09/15/2016 Primary [place] Physician: Zhanna Francois, CUSTOM FEED MILL OPERATOR HELPER [phone], [facility] 1 / [facility] [id number] documented in this encounter Discharge Instructions Patient InstructionsTrDylan watts MD - 09/12/2016 1:52 PM EST BARIATRIC SURGERY DISCHARGE INFORMATION CONTACT INFORMATION: [phone] Surgeon: Dr. Goodwin [phone] Boiler Out: [phone] (Monday through Monday, 8:00 AM -5:00 PM) Dietitians: [phone] Non-business hours: [phone], ask for general surgeon process control technician FOR EMERGENCIES: CALL 911 (trouble breathing, chest [...] page 82. The prescription is sent to [facility] IF YOU ARE TREATED FOR OBSTRUCTIVE [...] Follow up with primary care provider or boarding specialist in 1-2 weeks. Bring meter to [...] be sent through Care Everywhere. ENOXAPARIN (LOVENOX) (UPPER SORBIAN)documented in this encounter Medications at Time of Discharge Medication Sig Dispensed Refills Start Date End Date VITAMIN D 1,000 unit TAKE ONE TABLET BY 3 016 Tablet MOUTH EVERY DAY gabapentin (NEURONTIN) [...] Longoria RN - 09/15/2016 5:58 PM EST RN-FAMILY HELPER, Office of Care Management Amaris Longoria RN,BSN, AC Pager # [phone] Nursing alerted me that Oxygen has been delivered for discharge to home, patient needs walker - [employer] has available on delivery truck. Orders written. Dr. Yost asked to sign order. Will ask water resources program director to send order to [employer] in am. Dylan Sneed MD - 09/15/2016 [...] discharge later today on oxygen. Meet with Grocery Store Bagger to seeif insurance will over walker, shower seat, and VNA services. 4-week follow-up appointment with Dr. Goodwin. DYLAN BRYANT MD Landy Roberson RN - 09/15/2016 9:54 AM EST Office of Care Management (OCM) / Powerhouse Helper(CM) Patient feeling better & planning to go home today. MD states O2 desat when O2 removed. RN performed walk test. CM entered shared note with letter of necessity & O2 order pended. Patient opting to use [employer] as vendor since they have office in [facility] & provide CPAP supplies. Need portable unit delivered to patient in [facility] by 2pm for trip home this afternoon. Landy Stevenson RN Case Manager Pager [phone] Dylan Sneed MD - 09/15/2016 9:41 AM [...] / min Route: nasal canula Vendor Ordered: [place], [place] Office [place], [place] Office [facility] Offices [facility] I anticipate that Ruth Galeana will be discharged within 2 days. Dylan Bryant MD - 09/14/2016 9:05 AM EST MIS [...] Intake/Output Summary (Last 24 hours) at 09/13/16 0745 Last data filed at 09/13/16 0630 Gross [...] as tolerated to Stage II today, d/c MAGAZINE EDITOR, HLIV. Will need to monitor BGs closely as resumes diet given ~400u/day preop insulin requirement at home. N: PO APAP, d/c MAGAZINE EDITOR, Dilaudid 2q4 prn, Neurontin C: d/c IV [...] and pain is well controlled by the MAGAZINE EDITOR. Temp: [36 ??C (96.8 ??F)-36.7 ??C (98.1 [...] increase Dispo: Floor status DYLAN BRYANT MD 09/12/2016 5:44 PM Kvng P[place] [...] Alva MD - 09/12/2016 9:59 AM EST [facility] Department of General Surgery Interval History and [...] Pt. Discharged home on home O2 with [employer] the vendor. Discharge instructions given. All questions [...] discharge later today on oxygen. Meet with [employer] Store Bagger to seeif insurance will over walker, shower [...] 4 mg given and then pt slept. [id number] pt reported that headache had resolved. CPAP [...] Independent in restroom Surveillance [continuous indirect monitoring]: Daly, purposeful rounding Patient-specific fall prevention interventions for sensory deficits provided, if applicable: [X] Yeslighting Consult Note - Neo Tong MD - 09/14/2016 6:48 PM EST Images from the original note were not included. Diabetes Management Team Inpatient Consult Date of Consultation: 09/14/2016 Consult Requested by: Dr. Alva Reason for Consultation: Ruth Galeana is a 51 y.o. years old female with PMH significant for [id number] morbid obesity who was admitted on 09/12/2016 currently being treated for bariatric surgery. Sheis currently POD 2 today, and her insulin requirement dropped from 300 u/d preop to 6-12u/d post op.We are being consulted to assist with diabetes management and to provide a review of shelter diabetes care. Diabetes History: Ruth Galeana has had type 2 diabetes for 11 years. She had GDM prior to the onset of T2DM. She has been managed by [facility] endocrinology with an A1c of 7.7%. Current [...] mg qd - Follow up with diabetes DRYWALL INSTALLER Lluvia in 2-4 weeks and re-evaluate the use of Invokana. - Case discussed with Dr German of endocrinology. Thank you for allowing us to provide care for your patient. Primary team updated. Neo Tong MD Endocrine Fellow Pager [phone] Associated attestation - Keila German MD - 09/15/2016 9:30 AM EST I saw this patient with Dr. Tong. I reviewed the gregory portions of the history and physical exam, and reviewed pertinent lab data. I answered all patient questions. I was involved in all medical decisionmaking and agree with this plan. KEILA GERMAN MD Chief Projectionistsolar applications development engineer Section of Endocrinology [facility] Plan of Care - Rosa Boyd RN [...] Independent in restroom Surveillance [continuous indirect monitoring]: Daly purposeful rounding Patient-specific fall prevention interventions for [...] anything for it at the time. Her MAGAZINE EDITOR has been discontinued and her pain so [...] controlled. Aim for discharge tomorrow. NEURO: Discontinue MAGAZINE EDITOR; schedule acetaminophen and PO narcotic pain medications [...] Medicaid [place] Prescription Coverage: Medicaid Preferred Pharmacy: [facility] in [place], [place] Other: N/A Primary Care Provider: Zhanna Francois, CUSTOM FEED MILL OPERATOR HELPER [phone] Patient/Caregiver Goals of Treatment: Discharge home with [...] needed for discharge. Landy Stevenson RN Pager: [phone] Plan of Care - Helen Silver RN - 09/13/2016 3:09 AM EST Problem: Patient Care Overview Goal: Plan of Care Review Outcome: Ongoing (Interventions Implemented as Appropriate) 09/12/162102 Coping/Psychosocial Plan Of Care Reviewed With patient;family Plan of Care Review Progress no change OUTCOME EVALUATION NOTE: OUTCOME SUMMARY: Ruth Perez states her abdomen is sore, but MAGAZINE EDITOR is helping. Respiratory up to blend O2 [...] Goodwin MD - 09/12/2016 7:35 PM EST [facility] Operative Note Patient Name: Ruth Galeana : [id number] MR#: [id number] Case Date: 09/12/2016 Surgeon: Surgeon(s) and Role: [...] she has had full participation in the [facility] Bariatric Surgery program and meets NIH criteria [...] underwent an uneventful gastric sleeve over a 40-Bangladeshi bougie. Intraoperative endoscopy showed a patent gastric [...] curvature with a green load of the [place] 60 angled toward the lesser curvature. We then passed a 40-Bangladeshi bougie down the esophagus into the stomach and beyond the initial staple line into the antrum of stomach by Anesthesia without difficulty. With the 40-Bangladeshi bougie in place, an additional green load was fired followed by subsequent firings of [place] 60 blue loads abutting up against the 40-Bangladeshi bougie along the lesser curvature to appropriately [...] Operative Note Patient Name: Ruth Galeana : [id number] MR#: [id number] Case Date: 09/12/2016 Surgeon: Surgeon(s) and Role: [...] 189 65 - 199 RUTH VASQUEZ mg/dL [facility] Comment: Supplemental ranges: <140 mg/dL before meals <180 mg/dL all other times of the day Specimen Anatomical Collection Method Collection Time Receive d Time (Source) Location / / Volume Laterality Blood specimen 09/15/2016 4:24 PM 016 4:24 (specimen) EST PM EST Deven Goodwin MD POINT OF CARE TEST ORDERABLE S Performing Organization Address City/State/[place] [address] Chest Pulmonary Embolism [...] POC Glucose 201 (H) 65 - 199 [facility] mg/dL [facility] Comment: Supplemental ranges: <140 mg/dL before meals <180 mg/dL all other times of the day Specimen Anatomical Collection Method Collection Time Receive d Time (Source) Location / / Volume Laterality Blood specimen 09/15/2016 12:49 6 (specimen) PM EST 12:49 PM EST Deven Goodwin MD POINT OF CARE TEST ORDERABLE S Performing Organization Address City/State/ZIP Code Phon e Number [place] [id number] POCT Glucose (09/15/2016 11:25 AM EST) athologist Signature POC Glucose 182 65 - 199 [facility] mg/dL [facility] Comment: Supplemental ranges: <140 mg/dL before meals <180 mg/dL all other times of the day Specimen Anatomical Collection Method Collection Time Receive d Time (Source) Location / / Volume Laterality Blood specimen 09/15/2016 11:25 12 6 (specimen) AM EST 11:25 AM EST Deven Goodwin MD POINT OF CARE TEST ORDERABLE S Performing Organization Address City/State/ZIP Code Phon e Number [place] [id number] [facility] LAB[address] Drive POCT Glucose (09/15/2016 9:32 AM EST) athologist Signature POC Glucose 175 65 - 199 [facility] mg/dL [facility] Comment: Supplemental ranges: <140 mg/dL before meals <180 mg/dL all other times of the day Specimen Anatomical Collection Method Collection Time Receive d Time (Source) Location / / Volume Laterality Blood specimen 09/15/2016 9:32 AM 016 9:32 (specimen) EST AM EST Deven Goodwin MD POINT OF CARE TEST ORDERABLE S Performing Organization Address City/State/ZIP Code Phon e Number [address] Differential, Automated (09/15/2016 8:46 AM EST) athologist Signature Neutrophils % 55.8 % [facility] Neutr Abs (ANC) 4.20 1.70 - [facility] 6.10 [facility] x10(3)/[facility] LABORATORY Lymphocytes % 33.3 % [facility] Lymphocytes Abs 2.5 0.9 - 3.2 [facility] x10(3)/[facility] LABORATORY Monocytes % 6.8 % [facility] Monocyte Abs 0.5 0.3 - 0.9 [facility] x10(3)/[facility] LABORATORY Eosinophils % 2.9 % [facility] Eosinophils Abs 0.2 0.0 - 0.4 [facility] x10(3)/[facility] LABORATORY Basophils % 0.7 % [facility] Basophils Abs 0.0 0.0 - 0.1 [facility] x10(3)/[facility] LABORATORY Immature Gran % 0.50 % [facility] Comment: Immature granulocytes(IG's)percentage an d absolute count will include metamyelocytes, myelocytes, and promyelo cytes. Blood smears from CBCs yielding IG's will be scanned manually for concor dance. If this scan disagrees with the automated IG or if promyelocytes are not ed, a manual differential will be performed. Betzaida Gran Abs 0.04 0.00 - 0.04 x10(3)/[facility] LABORATORY Specimen Anatomical Collection Method Collection Time Receive d Time (Source) Location / / Volume Laterality Blood specimen 09/15/2016 8:46 AM 016 8:53 (specimen) EST AM EST Resulting Agency Comment Spec In Lab Deven Goodwin MD HEMATOLOGY ORDERABLES Performing Organization Address City/State/[place] [address] Hemogram (09/15/2016 8:46 AM EST) P athologist Signature WBC 7.5 4.0 - 9.5 [facility] x10(3)/[facility] LABORATORY RBC 4.54 4.00 - [facility] 5.21 [facility] x10(6)/[facility] LABORATORY Hemoglobin 13.1 11.7 - [facility] 15.5 gm/dL [facility] Hematocrit 38.2 35.7 - [facility] 45.8 % [facility] MCV 84.1 82.6 - [facility] 94.4 [facility] LABORATORY MCH 28.9 27.1 - [facility] 32.0 pg [facility] MCHC 34.3 31.7 - [facility] 35.0 gm/dL [facility] Platelets 196 145 - 357 [facility] x10(3)/[facility] LABORATORY RDWSD 42.3 37.0 - [facility] 46.0 [facility] LABORATORY RDWCV 13.7 11.5 - [facility] 14.1 % [facility] MPV 10.7 7.6 - 12.9 [facility] LABORATORY nRBC % Auto 0.0 % [facility] nRBC Abs Auto 0.000 0.000 - [facility] 0.000 [facility] x10(3)/[facility] LABORATORY Specimen Anatomical Collection Method Collection Time Receive d Time (Source) Location / / Volume Laterality Blood specimen 09/15/2016 8:46 AM 016 8:53 (specimen) EST AM EST Resulting Agency Comment Spec In Lab Deven Goodwin MD HEMATOLOGY ORDERABLES Performing Organization Address City/[facility]/ZIP Code Phon e Number [address] Phosphorus (09/15/2016 8:46 AM EST) athologist Signature Phosphorus 2.7 2.5 - 4.5 [facility] mg/dL [facility] Specimen Anatomical Collection Method Collection Time Receive d Time (Source) Location / / Volume Laterality Blood specimen 09/15/2016 8:46 AM 8:53 (specimen) EST AM EST Resulting Agency Comment Spec In Lab Deven Goodwin MD CHEMISTRY ORDERABLES Performing Organization Address City/[facility] Phon e Number [address] Magnesium (09/15/2016 8:46 AM EST) athologist Signature Magnesium 0.81 0.69 - 1.07 [facility] mmol/L [facility] Specimen Anatomical Collection Method Collection Time Receive d Time (Source) Location / / Volume Laterality Blood specimen 09/15/2016 8:46 AM 8:53 (specimen) EST AM EST Resulting Agency Comment Spec In Lab Deven Goodwin MD CHEMISTRY ORDERABLES Performing Organization Address City/[facility] [place] [address] (ABNORMAL) Basic Metabolic Panel (non-fasting) (09/15/2016 8:46 AM EST) P athologist Signature Glucose Lvl 209 (H) 65 - 199 [facility] mg/dL [facility] Comment: Diabetes: >=200 mg/dL plus symp toms BUN 7 (L) 8 - 18 mg/dL [facility] Creatinine 0.81 0.70 - 1.20 mg/dL [facility] Comment: Please note that the pediatric reference intervals supplied above were not validated at [facility]. Results from pediatri c patients should be interpreted in conjunction to the patient's age, height and muscle mass. Sodium 137 135 - 145 mmol/L [facility] Potassium 3.6 3.5 - 5.0 mmol/L [facility] Comment: Please note: ??Patients with WBC >100,00 0 may have falsely elevated Potassium levels. ??For accurate Potassium quantif ication in these patients send serum separator tube (gold top) for subsequent determinations. ??Contact the Clinical Chemistry Laboratory if there are any qu estions. Chloride 96 (L) 98 - 107 mmol/L [facility] CO2 27 22 - 31 mmol/L [facility] Anion Gap 14 5 - 15 mmol/L [facility] Calcium 9.6 8.5 - 10.5 mg/dL [facility] Estimated GFR >60 >=60 [facility] Comment: This estimated GFR [...] the following links into your internet browser. [email or web address] [email or web address] Specimen Anatomical Collection Method Collection Time Receive d Time (Source) Location / / Volume Laterality Blood specimen 09/15/2016 8:46 AM 016 8:53 (specimen) EST AM EST Resulting Agency Comment Spec In Lab Deven Goodwin MD CHEMISTRY ORDERABLES Performing Organization Address City/State/[place] [address] (ABNORMAL) POCT Glucose (09/15/2016 7:04 AM EST) P athologist Signature POC Glucose 208 (H) 65 - 199 [facility] mg/dL [facility] Comment: Supplemental ranges: <140 mg/dL before meals <180 mg/dL all other times of the day Specimen Anatomical Collection Method Collection Time Receive d Time (Source) Location / / Volume Laterality Blood specimen 09/15/2016 7:04 AM 016 7:04 (specimen) EST AM EST Deven Goodwin MD POINT OF CARE TEST ORDERABLE S Performing Organization Address City/State/ZIP Code Phon e Number [address] POCT Glucose (09/15/2016 4:12 AM EST) athologist Signature POC Glucose 161 65 - 199 [place] mg/dL [facility] Comment: Supplemental ranges: <140 mg/dL before meals <180 mg/dL all other times of the day Specimen Anatomical Collection Method Collection Time Receive d Time (Source) Location / / Volume Laterality Blood specimen 09/15/2016 4:12 AM 016 4:12 (specimen) EST AM EST Deven Goodwin MD POINT OF CARE TEST ORDERABLE S Performing Organization Address City/State/ZIP Code Phon e Number [address] POCT Glucose (09/14/2016 11:46 PM EST) athologist Signature POC Glucose 176 65 - 199 [place] mg/dL [facility] Comment: Supplemental ranges: <140 mg/dL before meals <180 mg/dL all other times of the day Specimen Anatomical Collection Method Collection Time Receive d Time (Source) Location / / Volume Laterality Blood specimen 09/14/2016 11:46 6 (specimen) PM EST 11:46 PM EST Deven Goodwin MD POINT OF CARE TEST ORDERABLE S Performing Organization Address City/State/ZIP Code Phon e Number [address] POCT Glucose (09/14/2016 7:21 PM EST) athologist Signature POC Glucose 175 65 - 199 [facility] [place] mg/dL [facility] Comment: Supplemental ranges: <140 mg/dL before meals <180 mg/dL all other times of the day Specimen Anatomical Collection Method Collection Time Receive d Time (Source) Location / / Volume Laterality Blood specimen 09/14/2016 7:21 PM 016 7:21 (specimen) EST PM EST Deven Goodwin MD POINT OF CARE TEST ORDERABLE S Performing Organization Address City/State/[place] [address] (ABNORMAL) POCT Glucose (09/14/2016 3:54 PM EST) P athologist Signature POC Glucose 236 (H) 65 - 199 [place] mg/dL [facility] Comment: Supplemental ranges: <140 mg/dL before meals <180 mg/dL all other times of the day Specimen Anatomical Collection Method Collection Time Receive d Time (Source) Location / / Volume Laterality Blood specimen 09/14/2016 3:54 PM 016 3:54 (specimen) EST PM EST Deven Goodwin MD POINT OF CARE TEST ORDERABLE S Performing Organization Address City/State/[place] [address] POCT Glucose (09/14/2016 10:59 AM EST) P athologist Signature POC Glucose 193 65 - [address] mg/dL [facility] Comment: Supplemental ranges: <140 mg/dL before meals <180 mg/dL all other times of the day Specimen Anatomical Collection Method Collection Time Receive d Time (Source) Location / / Volume Laterality Blood specimen 09/14/2016 10:59 6 (specimen) AM EST 10:59 AM EST Deven Goodwin MD POINT OF CARE TEST ORDERABLE S Performing Organization Address City/State/[place] [address] POCT Glucose (09/14/2016 7:25 AM EST) P athologist Signature POC Glucose 152 65 - 199 [place] mg/dL [facility] Comment: Supplemental ranges: <140 mg/dL before meals <180 mg/dL all other times of the day Specimen Anatomical Collection Method Collection Time Receive d Time (Source) Location / / Volume Laterality Blood specimen 09/14/2016 7:25 AM 016 7:25 (specimen) EST AM EST Deven Goodwin MD POINT OF CARE TEST ORDERABLE S Performing Organization Address City/State/ZIP Code Phon e Number [address] POCT Glucose (09/14/2016 3:45 AM EST) P athologist Signature POC Glucose 185 65 - 199 [address] mg/dL [facility] Comment: Supplemental ranges: <140 mg/dL before meals <180 mg/dL all other times of the day Specimen Anatomical Collection Method Collection Time Receive d Time (Source) Location / / Volume Laterality Blood specimen 09/14/2016 3:45 AM 016 3:45 (specimen) EST AM EST Deven Goodwin MD POINT OF CARE TEST ORDERABLE S Performing Organization Address City/[facility]/ZIP Code Phon e Number [address] POCT Glucose (09/13/2016 11:00 PM EST) athologist Signature POC Glucose 179 65 - 199 [place] mg/dL [facility] Comment: Supplemental ranges: <140 mg/dL before meals <180 mg/dL all other times of the day Specimen Anatomical Collection Method Collection Time Receive d Time (Source) Location / / Volume Laterality Blood specimen 09/13/2016 11:00 6 (specimen) PM EST 11:00 PM EST Deven Goodwin MD POINT OF CARE TEST ORDERABLE S Performing Organization Address City/State/ZIP Code Phon e Number [address] POCT Glucose (09/13/2016 7:09 PM EST) P athologist Signature POC Glucose 178 65 - 199 [facility] CHRISTINA mg/dL [facility] Comment: Supplemental ranges: <140 mg/dL before meals <180 mg/dL all other times of the day Specimen Anatomical Collection Method Collection Time Receive d Time (Source) Location / / Volume Laterality Blood specimen 09/13/2016 7:09 PM 016 7:09 (specimen) EST PM EST Deven Goodwin MD POINT OF CARE TEST ORDERABLE S Performing Organization Address City/State/ZIP Code Phon e Number [address] POCT Glucose (09/13/2016 3:54 PM EST) P athologist Signature POC Glucose 194 65 - 199 [place] mg/dL [facility] Comment: Supplemental ranges: <140 mg/dL before meals <180 mg/dL all other times of the day Specimen Anatomical Collection Method Collection Time Receive d Time (Source) Location / / Volume Laterality Blood specimen 09/13/2016 3:54 PM 016 3:54 (specimen) EST PM EST eDven Goodwin MD POINT OF CARE TEST ORDERABLE S Performing Organization Address City/[facility]/ZIP Code Phon e Number [address] POCT Glucose (09/13/2016 11:18 AM EST) athologist Signature POC Glucose 199 65 - 199 [facility] CHRISTINA mg/dL [facility] Comment: Supplemental ranges: <140 mg/dL before meals <180 mg/dL all other times of the day Specimen Anatomical Collection Method Collection Time Receive d Time (Source) Location / / Volume Laterality Blood specimen 09/13/2016 11:18 6 (specimen) AM EST 11:18 AM EST Deven Goodwin MD POINT OF CARE TEST ORDERABLE S Performing Organization Address City/State/ZIP Code Phon e Number [address] POCT Glucose (09/13/2016 7:10 AM EST) athologist Signature POC Glucose 188 65 - 199 [facility] CHRISTINA mg/dL [facility] Comment: Supplemental ranges: <140 mg/dL before meals <180 mg/dL all other times of the day Specimen Anatomical Collection Method Collection Time Receive d Time (Source) Location / / Volume Laterality Blood specimen 09/13/2016 7:10 AM 016 7:10 (specimen) EST AM EST Deven Goodwin MD POINT OF CARE TEST ORDERABLE S Performing Organization Address City/State/[place] [address] (ABNORMAL) Differential, Automated (09/13/2016 5:17 AM EST) [facility] Method Time Signature Neutrophils % 71.4 % [facility] Neutr Abs (ANC) 6.87 (H) 1.70 - [facility] 6.10 [facility] x10(3)/[facility] LABORATORY Lymphocytes % 19.7 % [facility] Lymphocytes Abs 1.9 0.9 - 3.2 [facility] x10(3)/[facility] LABORATORY Monocytes % 6.6 % [facility] Monocyte Abs 0.6 0.3 - 0.9 [facility] x10(3)/[facility] LABORATORY Eosinophils % 1.6 % [facility] Eosinophils Abs 0.2 0.0 - 0.4 [facility] x10(3)/[facility] LABORATORY Basophils % 0.3 % [facility] Basophils Abs 0.0 0.0 - 0.1 [facility] x10(3)/[facility] LABORATORY Immature Gran % 0.40 % [facility] Comment: Immature granulocytes(IG's)percentage an d absolute count will include metamyelocytes, myelocytes, and promyelo cytes. Blood smears from CBCs yielding IG's will be scanned manually for concor dance. If this scan disagrees with the automated IG or if promyelocytes are not ed, a manual differential will be performed. Betzaida Gran Abs 0.04 0.00 - 0.04 x10(3)/[facility] Specimen Anatomical Collection Method Collection Time Receive d Time (Source) Location / / Volume Laterality Blood specimen 09/13/2016 5:17 AM 016 5:32 (specimen) EST AM EST Resulting Agency Comment Spec In Lab Cinthya Alva MD HEMATOLOGY ORDERABLES Performing Organization Address City/[facility]/[place] [address] (ABNORMAL) Hemogram (09/13/2016 5:17 AM EST) Analysis Performed At Patho logist Time Signature WBC 9.6 (H) 4.0 - 9.5 [facility] x10(3)/[facility] LABORATORY RBC 4.44 4.00 - [place]ZARRY[place]ST[place] 5.21 [facility] x10(6)/[facility] LABORATORY Hemoglobin 13.0 11.7 - [facility] gm/dL [facility] Hematocrit 37.8 35.7 - [facility] 45.8 % [facility] MCV 85.1 82.6 - [facility] 94.4 [facility] LABORATORY MCH 29.3 27.1 - [place] 32.0 pg [facility] MCHC 34.4 31.7 - [facility] 35.0 gm/dL [facility] Platelets 197 145 - 357 [facility] x10(3)/[facility] LABORATORY RDWSD 43.8 37.0 - [facility] 46.0 [facility] LABORATORY RDWCV 14.2 (H) 11.5 - [facility] CHRISTINA 14.1 % [facility] MPV 11.1 7.6 - 12.9 [facility] LABORATORY nRBC % Auto 0.0 % [facility] nRBC Abs Auto 0.000 0.000 - [facility] x10(3)/[facility] LABORATORY Specimen Anatomical Collection Method Collection Time Receive d Time (Source) Location / / Volume Laterality Blood specimen 09/13/2016 5:17 AM 016 5:32 (specimen) EST AM EST Resulting Agency Comment Spec In Lab Cinthya Alva MD HEMATOLOGY ORDERABLES Performing Organization Address City/State/[place] [address] Phosphorus (09/13/2016 5:17 AM EST) P athologist Signature Phosphorus 3.3 2.5 - 4.5 [place] mg/dL [facility] Specimen Anatomical Collection Method Collection Time Receive d Time (Source) Location / / Volume Laterality Blood specimen 09/13/2016 5:17 AM 016 5:32 (specimen) EST AM EST Resulting Agency Comment Spec In Lab Cinthya Alva MD CHEMISTRY ORDERABLES Performing Organization Address City/State/ZIP Code Phon e Number [address] Magnesium (09/13/2016 5:17 AM EST) athologist Signature Magnesium 0.88 0.69 - 1.07 [facility] mmol/L [facility] Specimen Anatomical Collection Method Collection Time Receive d Time (Source) Location / / Volume Laterality Blood specimen 09/13/2016 5:17 AM 016 5:32 (specimen) EST AM EST Resulting Agency Comment Spec In Lab Cinthya Alva MD CHEMISTRY ORDERABLES Performing Organization Address City/[facility] Phon e Number [address] Basic Metabolic Panel (non-fasting) (09/13/2016 5:17 AM EST) athologist Signature Glucose Lvl 192 65 - 199 [facility] mg/dL [facility] Comment: Diabetes: >=200 mg/dL plus symp toms BUN 13 8 - 18 mg/dL [facility] Creatinine 0.79 0.70 - 1.20 mg/dL [facility] Comment: Please note that the pediatric reference intervals supplied above were not validated at [facility]. Results from pediatri c patients should be interpreted in conjunction to the patient's age, height and muscle mass. Sodium 139 135 - 145 mmol/L [facility] Potassium 4.1 3.5 - 5.0 mmol/L [facility] Comment: Please note: ??Patients with WBC >100,00 0 may have falsely elevated Potassium levels. ??For accurate Potassium quantif ication in these patients send serum separator tube (gold top) for subsequent determinations. ??Contact the Clinical Chemistry Laboratory if there are any qu estions. Chloride 100 98 - 107 mmol/L [facility] CO2 27 22 - 31 mmol/L [facility] Anion Gap 12 5 - 15 mmol/L [facility] Calcium 9.7 8.5 - 10.5 mg/dL [facility] Estimated GFR >60 >=60 [facility] Comment: This estimated GFR [...] the following links into your internet browser. [email or web address] Specimen Anatomical Collection Method Collection Time Receive d Time (Source) Location / / Volume Laterality Blood specimen 09/13/2016 5:17 AM 016 5:32 (specimen) EST AM EST Resulting Agency Comment Spec In Lab Cinthya Alva MD CHEMISTRY ORDERABLES Performing Organization Address City/State/ZIP Code Phon e Number [address] POCT Glucose (09/13/2016 4:21 AM EST) athologist Signature POC Glucose 174 65 - 199 [facility] mg/dL [facility] Comment: Supplemental ranges: <140 mg/dL before meals <180 mg/dL all other times of the day Specimen Anatomical Collection Method Collection Time Receive d Time (Source) Location / / Volume Laterality Blood specimen 09/13/2016 4:21 AM 016 4:21 (specimen) EST AM EST Deven Goodwin MD POINT OF CARE TEST ORDERABLE S Performing Organization Address City/[facility]/ZIP [facility] Phon e Number [address] POCT Glucose (09/12/2016 11:29 PM EST) athologist Signature POC Glucose 194 65 - 199 [facility] mg/dL [facility] Comment: Supplemental ranges: <140 mg/dL before meals <180 mg/dL all other times of the day Specimen Anatomical Collection Method Collection Time Receive d Time (Source) Location / / Volume Laterality Blood specimen 09/12/2016 11:29 11201 6 (specimen) PM EST 11:29 PM EST Deven Goodwin MD POINT OF CARE TEST ORDERABLE S Performing Organization Address City/State/[place] [address] POCT Glucose (09/12/2016 7:23 PM EST) P athologist Signature POC Glucose 198 65 - 199 [place] mg/dL [facility] Comment: Supplemental ranges: <140 mg/dL before meals <180 mg/dL all other times of the day Specimen Anatomical Collection Method Collection Time Receive d Time (Source) Location / / Volume Laterality Blood specimen 09/12/2016 7:23 PM 016 7:23 (specimen) EST PM EST Deven Goodwin MD POINT OF CARE TEST ORDERABLE S Performing Organization Address City/State/[place] [address] (ABNORMAL) POCT Glucose (09/12/2016 5:00 PM EST) P athologist Signature POC Glucose 206 (H) 65 - 199 [place] mg/dL [facility] Comment: Supplemental ranges: <140 mg/dL before meals <180 mg/dL all other times of the day Specimen Anatomical Collection Method Collection Time Receive d Time (Source) Location / / Volume Laterality Blood specimen 09/12/2016 5:00 PM 016 5:00 (specimen) EST PM EST Deven Goodwin MD POINT OF CARE TEST ORDERABLE S Performing Organization Address City/State/[place] [address] (ABNORMAL) POCT Glucose (09/12/2016 1:49 PM EST) P athologist Signature POC Glucose 207 (H) 65 - 199 [place] mg/dL [facility] Comment: Supplemental ranges: <140 mg/dL before meals <180 mg/dL all other times of the day Specimen Anatomical Collection Method Collection Time Receive d Time (Source) Location / / Volume Laterality Blood specimen 09/12/2016 1:49 PM 016 1:49 (specimen) EST PM EST Deven Goodwin MD POINT OF CARE TEST ORDERABLE S Performing Organization Address City/State/ZIP Code Phon e Number [place] [id number] Surgical Pathology Report (09/12/2016 1:06 PM EST) Component Value Ref Test Analysis Performed At [facility] gist Range Method Time Signature Surgical [id number] ?Location: 4T; [facility]; A [facility] Pathology NOVA Report The signing pathologist has (i) examined the relevant preparation(s) for the [facility] specimen(s) and (ii) rendered or confirmed the [...] Wall Thickness: Average 0.3 cm. Sections/ Processing: Admissions Assistant sections are submitted. (1-2) escrow representative margin; (3) escrow representative mucosa. (R3) ??shb Specimen (Source) Anatomical Collection Method Collection Time Re ceived Time Location / / Volume Laterality 09/12/2016 1:06 PM EST Deven Goodwin MD PATHOLOGY/CYTOLOGY ORDERABLE S Performing Organization Address City/[facility]/[place] [address] Specimen to Pathology (surgical or derm) (09/12/2016 1:06 PM EST) Specimen Anatomical Collection Method Collection Time Receive d Time (Source) Location / / Volume Laterality AP Specimen 09/12/2016 1:06 PM 6 1:06 EST PM EST Narrative [facility] - 09/12/2016 1:06 PM EST Specimen requisition ordered. ??Separate Pathology report to follow Deven Goodwin MD PATHOLOGY/CYTOLOGY ORDERABLE S Performing Organization Address City/[facility] [place] [address] documented in this encounter Visit Diagnoses Diagnosis Idiopathic sleep related nonobstructive alveolar hypoventilation Obesity Obesity, unspecified documented in this encounter Admitting Diagnoses Diagnosis Obesity Obesity, unspecified documented in this encounter Administered Medications Inactive Administered Medications - up to 3 most recent administrations Medication Order MAR Action Action Date Dose Rate Site acetaminophen (OFIRMEV) Given 09/13/2016 7:35 AM 1,000 mg 400 mL/hr injection 1,000 mg EST 1,000 mg, Intravenous, at 400 mL/hr, EVERY 8 HOURS SCHEDULED, 3 doses, First dose on Mon09/12/16 at 1445, Last dose on Mon09/13/16 at 0800, Routine, Is ketorolac (Toradol) IV contraindicated? Yes, Can this patient tolerate oral medications or suppositories? No Given 09/12/2016 11:30 PM EST 1,000 mg 400 mL/hr Given 09/12/2016 5:14 PM EST 1,000 mg 400 mL/hr acetaminophen (TYLENOL) 650 mg/20.3 mL oral Given 10/2015 10:27 AM EST 650 mg liquid 650 mg 650 mg, Oral, EVERY 4 HOURS PRN, Starting on Mon09/13/16 at 1600, Until Mon09/15/16 at 2135, Fever, Maximum dose of acetaminophen is 4000 mg from all sources in 24 hours. , Routine Given 09/15/2016 4:17 AM EST 650 mg Given 09/14/2016 11:05 AM EST 650 mg acetaminophen (TYLENOL) tablet 1,000 mg Given 09/12/2016 10:04 AM EST 1,000 mg 1,000 mg, Oral, ONCE, 1 dose, On Mon09/12/16 at 1015, Administer with SIP of H2O only., Day of Surgery (Day of Procedure), Routine atenolol (TENORMIN) tablet 50 mg Given 09/13/2016 9:33 AM EST 50 mg 50 mg, Oral, DAILY, First dose on Mon09/13/16 at 0900, Until Discontinued, Routine atenolol (TENORMIN) tablet 50 mg Given 09/14/2016 8:23 AM EST 50 mg 50 mg, Oral, DAILY, First dose on Mon09/14/16 at 0900, Until Discontinued, Routine atenolol (TENORMIN) tablet 75 mg Given 09/15/2016 10:04 AM EST 75 mg 75 mg, Oral, DAILY, First dose (after last modification) on Mon09/15/16 at 0900, Until Discontinued, Routine dextrose 50% injection 25-50 mL 25-50 mL [...] Routine enoxaparin (LOVENOX) injection 40 mg Given 09/12/2016 10:37 AM EST 40 mg 40 mg, Subcutaneous, ONCE, 1 dose, On Mon09/12/16 at 1030, In PREOP holding, STAT enoxaparin (LOVENOX) injection 40 mg Given 09/15/2016 10:13 AM EST 40 mg 40 mg, Subcutaneous, 2 TIMES DAILY, First dose on Mon09/12/16 at 2100, Until Discontinued, Routine Given 09/14/2016 8:18 PM EST 40 mg Right Lower Quadrant Given 09/14/2016 8:24 AM EST 40 mg fentaNYL (PF) 50 mcg/mL 2mL syringe Given 09/12/2016 3:13 PM EST 25 mcg 25 mcg, Intravenous, EVERY 5 MIN PRN, Pain, for 1-4 pain score, Starting on Mon09/12/16 at 1313, Until Mon09/12/16 at 1550, for 1-4 pain score Hold for respiratory rate less than 10 per minute. Maximum dose: 250 mcg over one hour., PACU Recovery Given 09/12/2016 2:43 PM EST 25 mcg fluticasone-salmeterol (ADVAIR HFA) 115-21 Given 09/15 10:07 AM EST 2 puffs mcg/actuation inhaler 2 puff 2 puff, Inhalation, DAILY, First dose on Mon09/13/16 at 0900, Until Discontinued, Rinse mouth after administration. Formulary auto-substitution for Symbicort 160-4.5 once daily. gabapentin (NEURONTIN) 300 mg/6 mL (6 mL) Given 09/13/2016 3:59 PM EST 100 mg oral liquid 100 mg 100 mg, Oral, 3 TIMES DAILY, First dose on Mon09/13/16 at 0900, Until Discontinued, Routine Given 09/13/2016 9:34 AM EST 100 mg gabapentin (NEURONTIN) capsule 100 mg Given 09/15/2016 3:28 PM EST 100 mg 100 mg, Oral, 3 TIMES DAILY, First dose (after last reorder) on Mon09/13/16 at 2100, Until Discontinued, Routine Given 09/15/2016 10:04 AM EST 100 mg Given 09/14/2016 8:20 PM EST 100 mg gabapentin (NEURONTIN) capsule 600 mg Given 09/12/2016 10:04 AM EST 600 mg 600 mg, Oral, ONCE, 1 dose, On Mon09/12/16 at 1015, Administer with SIP of H2O only., Day of Surgery (Day of Procedure), Routine glucagon (human recombinant) injection 1 mg 1 [...] duration of the active insulin. HYDROmorphone (DILAUDID) 1 mg/mL New Syringe/Cartridge 09/12/2016 2:3 0 PM EST MAGAZINE EDITOR 50 mL Intravenous, MAGAZINE EDITOR ONLY, Starting on Mon09/12/16 at 1430, Until Mon09/13/16 at 0715, Recovery (Recovery-Hospital Unit) HYDROmorphone (DILAUDID) oral liquid 2 m g Given 09/13/2016 9:52 AM EST 2 mg 2 mg, Oral, EVERY 4 HOURS PRN, Starting on Mon09/13/16 at 0724, Until Mon09/13/16 at 1531, Pain, Routine HYDROmorphone (DILAUDID) oral liquid 2-4 mg Given 09/13/2016 3:59 PM EST 2 mg 2-4 mg, Oral, EVERY 4 HOURS PRN, Starting on Mon09/13/16 at 1600, Until Mon09/13/16 at 1637, Pain, Give 2mg for moderate pain 3-6 Give 4mg for severe pain 7-10, Routine HYDROmorphone (DILAUDID) syringe 0.2-0.4 mg Given 09/12/2016 2:40 PM EST 0.4 mg 0.2-0.4 mg, Intravenous, EVERY 5 MIN PRN, Pain, Starting on Mon09/12/16 at 1313, Until Mon09/12/16 at 1550, For moderate pain (4-6) give: 0.2 mg every 5 minute prn For severe pain (7-10) give: 0.4 mg every 5 minutes prn Maximum dose: 4 mg per hour Hold for respiratory rate less than 10 per minute., PACU Recovery Given 09/12/2016 2:25 PM EST 0.4 mg Given 09/12/2016 2:16 PM EST 0.4 mg HYDROmorphone (DILAUDID) tablet 2-4 mg Given 09/15/2016 2:17 AM EST 4 mg 2-4 mg, Oral, EVERY 4 HOURS PRN, Starting on Mon09/13/16 at 2000, Until Arlen 09/15/16 at 2135, Pain, Give 2mg for moderate pain 3-6 Give 4mg for severe pain 7-10, Routine Given 09/14/2016 3:46 AM EST 4 mg Given 09/13/2016 10:57 PM EST 4 mg HYDROmorphone (DILAUDID) tablet 4 mg Given 09/13/2016 1:54 PM EST 4 mg 4 mg, Oral, ONCE, 1 dose, On Mon09/13/16 at 1400, Routine insulin lispro (humaLOG) VIAL injection 1-4 Given [...] Given 09/15/2016 8:00 AM EST 3 Units iohexol (OMNIPAQUE) 350 mg/mL solution Given 09/15/2016 3:51 PM EST 35,000 mg 35,000 mg 35,000 mg (100 mL), Intravenous, ONCE PRN, 1 dose, Starting on Mon09/15/16 at 1551, Until Mon09/15/16 at 1551, Per Protocol, Warning Vesicant/Irritant Medication , Routine ketorolac (TORADOL) injection 30 mg Given 09/14/2016 2:08 AM EST 30 mg 30 mg, Intravenous, ONCE, 1 dose, On Mon09/14/16 at 0230, Routine lactated ringers infusion 1,000 mL New Bag 09/12/2016 11:22 AM EST 1,000 mL, at 100 mL/hr, Intravenous, CONTINUOUS, Starting on Mon09/12/16 at 1015, Until Mon09/12/16 at 1416, Day of Surgery (Day of Procedure) New Bag 09/12/2016 10:45 AM EST New Bag 09/12/2016 10:15 AM EST 1,000 mLs 100 mL/hr lactated ringers infusion 1,000 New Bag 09/13/2016 9:32 AM EST 1,000 mLs 100 mL/hr mL 1,000 mL, at 100 mL/hr, Intravenous, CONTINUOUS, Starting on Mon09/12/16 at 1430, Until Mon09/13/16 at 1625, Recovery (Recovery-Hospital Unit) New Bag 09/12/2016 11:33 PM EST 1,000 mLs 100 mL/hr New Bag 09/12/2016 2:21 PM EST 1,000 mLs 100 mL/hr levothyroxine (SYNTHROID) tablet 250 mcg Given 09/15/2016 5:39 AM EST 250 mcg 250 mcg, Oral, EVERY MORNING, First dose (after last reorder) on Mon09/13/16 at 0600, Until Discontinued Given 09/14/2016 5:10 AM EST 250 mcg Given 09/13/2016 6:35 AM EST 250 mcg magnesium sulfate 2 g in sterile water 50 Given 09/13/2016 6 :30 PM EST 2 g 25 mL/hr mL 2 g, Intravenous, ONCE, 1 dose, On Mon09/13/16 at 1830, Administer over 120 Minutes ondansetron (ZOFRAN) injection 4 mg Given 09/12/2016 1:55 PM EST 4 mg 4 mg, Intravenous, EVERY 30 MIN PRN, Starting on Mon09/12/16 at 1313, Until Mon09/12/16 at 1550, Nausea, May repeat 4 mg once in 30 minutes. If multiple antiemetics ordered, use ondansetron first and if ineffective use prochlorperazine second and if ineffective use promethazine, PACU Recovery ondansetron (ZOFRAN-ODT) oral disintegrating Given 09/14/2016 8: [...] Given 09/14/2016 7:33 AM EST 17 g prochlorperazine (COMPAZINE) injection 1 0 mg Given 09/14/2016 2:07 AM EST 10 mg 10 mg, Intravenous, EVERY 4 HOURS PRN, Starting on Mon09/14/16 at 0202, Until Mon09/14/16 at 0706, Nausea, STAT prochlorperazine (COMPAZINE) injection 5 mg Given 09/12/2016 2:19 PM EST 5 mg 5 mg, Intravenous, EVERY 30 MIN PRN, 2 doses, Starting on Mon09/12/16 at 1412, Until Tu09/13/16 at 0715, Nausea, May repeat in 30 minutes if no relief from previous dose. HOLD if patient is sedated. Maximum dose is 40 mg in 24 hours. If multiple antiemetics are ordered, use ondansetron first, prochlorperazine second. Per MAGAZINE EDITOR order., Recovery (Recovery-Hospital Unit), Routine sodium chloride 0.9 % flush 5 [...] (CANCELED) 0933 (Give n - Provider: Rosa Boyd RN) 50 mg, Oral, DAILY, First dose on Mon at 0900, Until Discontinued, Routine atenolol (TENORMIN) tablet 50 mg (CANCELED) 23 (Given - Provider: Rosa Boyd RN) 50 mg, Oral, DAILY, First dose on Mon at 0900, Until Discontinued, Routine atenolol (TENORMIN) tablet 75 mg 1004 (Given - Provider: Suzanne Pace RN) 75 mg, Oral, DAILY, First dose on Mon at 0900, Until Discontinued, Routine enoxaparin (LOVENOX) injection 40 mg 09 (Given - Pro vider: Rosa Boyd RN)2024 (Given - Provider: Helen Silver RN) 08 (Given - Provider: Rosa Boyd RN)2018 (Given - Provider: Jennifer Azul RN) 1013 (Given - Provider: Suzanne Pace RN) 40 mg, Subcutaneous, 2 TIMES DAILY, Firs t dose on Mon09/12/16 at 2100, Until Discontinued, Routine fluticasone-salmeterol (ADVAIR HFA) 115-21 mcg/actuati on inhaler 2 puff 0934 (Not Given - Provider: Rosa Boyd RN - Reason: Patient/family refused) 0900 (Not Given - Provider: Rosa Boyd RN - Reason: Patient/family refused) 1007 (Given - Provider: Suzanne Pace, DEBBIE) 2 puff, Inhalation, DAILY, First dose on Mon09/13/16 at 0900, Until Discontinued, Rinse mouth after administration. Formulary auto-substitution for Symbicort 160-4.5 once daily., Routine gabapentin (NEURONTIN) 300 mg/6 mL (6 mL) oral liquid 100 mg (CANCELED) 0934 (Given - Provider: Rosa Boyd RN)1559 (Given - Provider: Marina Wells RN) 100 mg, Oral, 3 TIMES DAILY, First dose on Mon09/13/16 at 0900, Until Discontinued, Routine gabapentin (NEURONTIN) capsule 100 mg 2024 (Given - Pr ovider: Helen Silver RN) 08 (Given - Provider: Rosa Boyd RN)153 (Given - Provider: Rosa Boyd, DEBBIE)2019 (Given - Provider: Jennifer Azul RN) 1004 (Given - Provider: Suzanne Pace RN)1528 (Given - Provider: Suzanne Pace RN) 100 mg, Oral, 3 TIMES DAILY, First dose on Mon09/13/16 at 2100, Until Discontinued, Routine HYDROmorphone (DILAUDID) tablet 4 mg (COMPLETED) 1354 (Given - Provider: Rosa Boyd RN) 4 mg, Oral, ONCE, 1 dose, Mon09/13/16 at 1400, Routine insulin lispro (humaLOG) VIAL injection 1-4 Units(Link ed Group 1) 0424 (Given - Provider: Helen Silver RN)0735 (Given - Provider: Rosa Boyd RN)1135 (Given - Provider: Rosa Boyd RN)1615 (Given - Provider: Rosa Boyd RN)1921 (Given - Provider: Helen Silver, DEBBIE) 0345 (Given - Provider: Helen Silver, DEBBIE)0733 (Given - Provider: Rosa Boyd, DEBBIE)1105 (Given - Provider: Rosa Boyd RN)1557 (Given - Provider: Rosa Boyd RN)2017 (Given - Provider: Jennifer Azul RN) 0416 (Given - Provider: Jennifer Azul RN)0800 (Given - Provider: Suzanne Pace RN)1251 (Given - Provider: Gena Umana RN)1632 (Given - Provider: Suzanne Pace, DEBBIE) 1-4 Units, Subcutaneous, EVERY 4 HOURS, First dose on Mon09/12/16 at 2030, Until Discontinued, CORRECTION BOLUS Sensitive to insulin lean patient or total daily dose of all insulin needed to achiev 2300 (Given - Provider: Helen Silver, RN) 2350 (Given - Provider: Jennifer Azul, RN) e glycemic control less than 30 [...] (COMPLETED) 0208 (Given - Provider: Helen Silver, RN) 30 mg, Intravenous, ONCE, 1 dose, Mon09/14/16 at 0230, Routine levothyroxine (SYNTHROID) tablet 250 mcg 0635 (Given - Provider: Helen Silver, RN) 0510 (Given - Provider: Helen Silver, RN) 0539 (Give n - Provider: Jennifer Azul RN) 250 mcg, Oral, EVERY MORNING, First [...] (COMPLETE D) 1830 (Given - Provider: Rosa Boyd, RN) 2 g, Intravenous, ONCE, 1 dose, 08/17 at 1830, Administer over 120 Minutes pantoprazole (PROTONIX) injection 40 mg 0934 (Given - Provider: Rosa Boyd RN) 0824 (Given - Provider: Rosa Boyd, DEBBIE) 1007 (Gi rajinder - Provider: Suzanne Pace, DEBBIE) 40 mg, Intravenous, DAILY, First dose on Mon09/12/16 at 1700, Until Discontinued, Reconstitute with 10 mL of normal saline to a concentration of 4 mg/mL and infuse slowly over 2 minutes. , Routine polyethylene glycol (MIRALAX) packet 17 g 0733 (Given - Provider: Rosa Boyd RN) 0900 (Given - Provider: Suzanne Pace, DEBBIE) 17 g, Oral, DAILY, First dose on Mon at 0730, Until Discontinued, Please give this morning 09/14, Routine sodium chloride 0.9 % flush 5 mL 0935 (Given - Provide r: Rosa Boyd RN)2027 (Given - Provider: Helen Silver RN) 0825 (Given - Provider: Rosa Boyd, DEBBIE)2020 (Given - Provider: Jennifer Azul RN) 1008 (Given - Provider: Suzanne Pace, DEBBIE) 5 mL, Intravenous, 2 TIMES DAILY, First dose on Mon09/12/16 at 2100, Until Discontinued, Recovery (Recovery-Hospital Unit), Routine Continuous Medication Order 09/13/2016 09/14/2016 09/15/2016 lactated ringers infusion 1,000 mL (CANCELED) 0932 (Ne w Bag - Provider: Rosa Boyd RN) 1,000 mL, at 100 mL/hr, Intravenous, CON TINUOUS, Starting Mon09/12/16 at 1430, Until Mon09/13/16 at 1625, Recovery (Recovery-Hospital Unit) PRN Medication Order 09/13/2016 09/14/2016 09/15/2016 acetaminophen (TYLENOL) 650 mg/20.3 mL oral liquid 650 mg 1750 (Given - Provider: Rosa Boyd RN) 1105 (Given - Provider: Rosa Boyd, DEBBIE) 0417 (Given - Provider: Jennifer Azul, DEBBIE)1027 (Given - Provider: Suzanne Pace, DEBBIE) 650 mg, Oral, EVERY 4 HOURS PRN, [...] Intravenous, EVERY 6 HOURS PRN, S tarting 09/12/16 at 1415, Until [...] (CANCELED) 0 952 (Given - Provider: Rosa Boyd, DEBBIE) 2 mg, Oral, EVERY 4 HOURS PRN, Starting Mon09/13/16 at 0724, Until Mon09/13/16 at 1531, Pain, Routine HYDROmorphone (DILAUDID) oral liquid 2-4 mg (CANCELED) 1559 (Given - Provider: Marina Wells, DEBBIE) 2-4 mg, Oral, EVERY 4 HOURS PRN, Startin g Mon09/13/16 at 1600, Until Mon09/13/16 at 1637, Pain, Give 2mg for moderate pain 3-6 Give 4mg for severe pain 7-10, Routine HYDROmorphone (DILAUDID) tablet 2-4 mg 1901 (Given - P rovider: Rosa Boyd RN)2257 (Given - Provider: Helen Silver, DEBBIE) 0346 (Given - Provider: Helen Silver RN) 0217 (Given - Provider: Jennifer Azul RN) 2-4 mg, Oral, EVERY 4 HOURS PRN, Startin g Mon09/13/16 at 2000, Until Arlen 09/15/16 at 2135, Pain, Give 2mg for moderate pain 3-6 Give 4mg for severe pain 7-10, Routine iohexol (OMNIPAQUE) 350 mg/mL solution 35,000 mg (COMPLETED) 1551 (Given - Provider: Karina Hurst) 35,000 mg (100 mL), Intravenous, ONCE TX N, 1 dose, Starting Mon09/15/16 at 1551, Until Mon09/15/16 at 1551, Per Protocol, Warning Vesicant/Irritant Medication , Routine lidocaine (XYLOCAINE) 10 mg/mL (1 %) injection 3 mg 3 mg (0.3 mL), Subcutaneous, ONCE PRN, 1 dose, Starting Mon09/12/16 at 1615, Until Mon09/15/16 at 2135, for discomfort with PIV insertion, Recovery (Recovery-Hospital Unit), Routine ondansetron (ZOFRAN-ODT) oral disintegrating tablet 4 mg 1001 (Given - Provider: Rosa Boyd RN) 0825 (Given - Provider: Rosa Boyd, DEBBIE) 4 mg, Oral, EVERY 8 HOURS PRN, Starting Mon09/13/16 at 0715, Until Mon09/15/16 at 2135, Nausea, If nausea not relieved after 30 minutes may repeat dose x 1. Total 8 mg per 8 hours., Routine prochlorperazine (COMPAZINE) injection 10 mg (CANCELED) 0207 (Given - Provider: Helen Silver RN) 10 mg, Intravenous, EVERY 4 HOURS PRN, [...] 1533 (Giv en - Provider: Rosa Boyd, DEBBIE)2347 (Given - Provider: Jennifer Azul RN) 50 [...] g), Intravenous, EVERY 1 HOUR PRN, Starting 09/12/16 at 1415, Until Arlen 09/15/16 at [...]
Routine documented in this encounter Care Teams Needle Felt Making Machine Operator Relationship Specialty Start Date End Date Zhanna Francois APRN PCP - General 01/27/15 05/15/19 documented as of this encounter
--- OUTSIDE RECORDS SUMMARY | 2022-09-16 12:29 | XMS_ITS | Encounter Summary ---
:1965 Author Organization [facility] [place] [address] Care Team Providers Name Role Phone FrancoisZhanna JESSE Primary Care Provider Encounter Details Date Type Department Care Team Description 08/22/2016 Telephone General Surgery at [facility] Luisa Herrmann, SHENG [facility] ([facility] [place] [phone] GENERAL SURGERY [phone] [place], [place] [address] (Wo rk) Social History Tobacco Use Types Packs/Day Years Used Date Smoking Tobacco: Never Smokeless Tobacco: Never Alcohol Use Standard Drinks/Week Comments No 0 (1 standard drink = 0.6 oz pure alcoho l) Sex Assigned at Date Recorded Not on file documented as of this encounter Miscellaneous Notes Telephone Encounter - Luisa Herrmann, RD - 08/23/2016 10:13 AM EST I called Ruth today as she had questions regarding the pre-op diet. She states she was told her liver was large and was wondering if she should do the pre-op diet for 3 weeks instead of 2. I advised her to follow the diet for 2 weeks only. She also wanted to know what to do about her potassium pill post-op as it is large. Advised her pills need to be liquid, chewable or crushed for 2 weeks after surgery. She is not sure why she is takingpotassium but remembers her PCP prescribed it. Her PCP is retiring but she plans to have an appt with her new PCP about 1 week after starting the preop diet. Advised her to ask her new provider what todo. She will also check in regarding any changes to her lasix dose at that time. She has an upcoming appointment with Lluvia Vargas APRN on 09/05/16 and will check with her regarding her medications for DM. Pt had the opportunity to have her questions answered. Encouraged her to call with any questions once she starts the pre-op diet. documented in this encounter Plan of Treatment Not on filedocumented as of this encounter Visit Diagnoses Not on filedocumented in this encounter Care Teams Raker Buffing Wheel Relationship Specialty Start Date End Date Zhanna Francois APRN PCP - General 01/27/15 05/15/19 documented as of this encounter
--- OUTSIDE RECORDS SUMMARY | 2022-09-16 12:29 | XMS_ITS | Encounter Summary ---
:1965 Author Organization [facility] [place] [address] Care Team Providers Name Role Phone Zhanna Francois APRN Primary Care Provider Reason for Visit Reason Comments Medication Refill Encounter Details Date Type Department Care Team Description 05/25/2016 Refill Endocrinology at [facility] Lluvia Rios APRN [facility] [place] [address] ENDOCRINOLOGY DEPT. [phone] [place], [place] [address] (Wo rk) Social History Tobacco [...] on filedocumented in this encounter Care Teams Policy Adviser Relationship Specialty Start Date End Date Zhanna Francois APRN PCP - General 01/27/15 05/15/19 documented as of this encounter
--- OUTSIDE RECORDS SUMMARY | 2022-09-16 12:29 | XMS_ITS | Encounter Summary ---
:1965 Author Organization [facility] [place] [address] Care Team Providers Name Role Phone Zhanna Francois APRN Primary Care Provider Encounter Details Date Type Department Care Team Description 07/13/2016 Telephone General Surgery at [facility] [address] Social History Tobacco Use Types Packs/Day Years Used Date Smoking Tobacco: Never Smokeless Tobacco: Never Alcohol Use Standard Drinks/Week Comments No 0 (1 standard drink = 0.6 oz pure alcoho l) Sex Assigned at Date Recorded Not on file documented as of this encounter Miscellaneous Notes Telephone Encounter - Anaid Crook - 07/13/2016 10:38 AM EDT LMOM for Ruth to see if she is interested in coming in for an appointment. I left my name and call back number documented in this encounter Plan of Treatment Not on filedocumented as of this encounter Visit Diagnoses Not on filedocumented in this encounter Care Teams Tailercpa Relationship Specialty Start Date End Date Zhanna Francois APRN PCP - General 01/27/15 05/15/19 documented as of this encounter
--- OUTSIDE RECORDS SUMMARY | 2022-09-16 12:29 | XMS_ITS | Encounter Summary ---
:1965 Author Organization [facility] [place] [address] Care Team Providers Name Role Phone Jonathan Smith MD Primary Care Provider Reason for Visit Reason Comments Medication Refill Encounter Details Date Type Department Care Team Description 05/11/2016 Refill Endocrinology at [facility] C Lluvia Vargas, CARDIOVASCULAR RN [facility] [place] [address] ENDOCRINOLOGY DEPT. [phone] [place], [place] [address] (Wo rk) Social History Tobacco [...] on filedocumented in this encounter Care Teams Poultry Veterinarian Relationship Specialty Start Date End Date Jonathan Smith MD PCP - General Family Medicine 07/16/[address] [place] [id number] documented as of this encounter
--- OUTSIDE RECORDS SUMMARY | 2022-09-16 12:29 | XMS_ITS | Encounter Summary ---
:1965 Author Organization [facility] [place] [address] Care Team Providers Name Role Phone Zhanna Francois APRN Primary Care Provider Encounter Details Date Type Department Care Team Description 07/25/2016 Telephone General Surgery at [facility] [place] [address] Social History Tobacco Use Types Packs/Day Years Used Date Smoking Tobacco: Never Smokeless Tobacco: Never Alcohol Use Standard Drinks/Week Comments No 0 (1 standard drink = 0.6 oz pure alcoho l) Sex Assigned at Date Recorded Not on file documented as of this encounter Miscellaneous Notes Telephone Encounter - Anaid Crook - 07/25/2016 11:01 AM EDT Spoke on the phone with Ruth Perez to schedule her SMA. She asked that I email her confirmation. documented in this encounter Plan of Treatment Not on filedocumented as of this encounter Visit Diagnoses Not on filedocumented in this encounter Care Teams Transfer Engineer Relationship Specialty Start Date End Date Zhanna Francois APRN PCP - General 01/27/15 05/15/19 documented as of this encounter
--- OUTSIDE RECORDS SUMMARY | 2022-09-16 12:29 | XMS_ITS | Encounter Summary ---
:1965 Author Organization [facility] [place] [address] Care Team Providers Name Role Phone Zhanna Francois APRN Primary Care Provider Reason for Visit Reason Onset Date Comments Diabetes 05/09/2016 Encounter Details Date Type Department Care Team Description 05/09/2016 Telephone Endocrinology at [facility] C Lluvia Vargas APRN [facility] [place] [address] ENDOCRINOLOGY DEPT. [phone] [place], [place] [address] (Wo rk) Social History Tobacco Use Types Packs/Day Years Used Date Smoking Tobacco: Never Smokeless Tobacco: Never Alcohol Use Standard Drinks/Week Comments No 0 (1 standard drink = 0.6 oz pure alcoho l) Sex Assigned at Date Recorded Not on file documented as of this encounter Miscellaneous Notes Telephone Encounter - Lluvia Vargas APRN - 05/09/2016 4:16 PM EDT Tel call from PCP, Zhanna Francois LAST TRIMMER, to review pt's insulin regimen. Zhanna states that pt's most recent HGBA1C =9.1% PCP increased U 500 regular concentrated insulin from 100 units 4X/day (looks like 20 units on insulin syringe to 115 units 4X/day (looks like 23 units using insulin syringe. LAST TRIMMER suggested changing pt to using the U500 insulin pen. Pt stopped the victoza 6 mo ago documented in this encounter Plan of Treatment Not on filedocumented as of this encounter Visit Diagnoses Not on filedocumented in this encounter Care Teams Certified Caregiver Relationship Specialty Start Date End Date Zhanna Francois APRN PCP - General 01/27/15 05/15/19 documented as of this encounter
--- OUTSIDE RECORDS SUMMARY | 2022-09-16 12:29 | XMS_ITS | Encounter Summary ---
:1965 Author Organization [facility] [place] [address] Care Team Providers Name Role Phone Zhanna Francois APRN Primary Care Provider Encounter Details Date Type Department Care Team Description 06/24/2016 Telephone General Surgery at [facility] [address] Social History Tobacco Use Types Packs/Day Years Used Date Smoking Tobacco: Never Smokeless Tobacco: Never Alcohol Use Standard Drinks/Week Comments No 0 (1 standard drink = 0.6 oz pure alcoho l) Sex Assigned at Date Recorded Not on file documented as of this encounter Miscellaneous Notes Telephone Encounter - Anaid Crook - 06/24/2016 10:22 AM EDT LMOM for Yamini Perez to let her know that we received her note from her most recent visit to the sleep center. I asked her to give me a call back to go over the other information that is missing. documented in this encounter Plan of Treatment Not on filedocumented as of this encounter Visit Diagnoses Not on filedocumented in this encounter Care Teams Textile Broker Relationship Specialty Start Date End Date Zhanna Francois APRN PCP - General 01/27/15 05/15/19 documented as of this encounter
--- OUTSIDE RECORDS SUMMARY | 2022-09-16 12:29 | XMS_ITS | Encounter Summary ---
:1965 Author Organization [facility] [place] [address] Care Team Providers Name Role Phone Zhanna Francois Jhonny MOLINA Primary Care Provider Reason for Visit Reason Comments Morbid Obesity Encounter Details Date Type Department Care Team Description 09/05/2016 Office Visit General Surgery at [facility] En[facility] nter for pre- bariatric surgery counseling and education; [facility]SE Morbid obesity with BMI of 50.0-59.9, ad ult [facility] [address], [place], [place] [phone] Social History Tobacco Use Types Packs/Day Years Used Date Smoking Tobacco: Never Smokeless Tobacco: Never Alcohol Use Standard Drinks/Week Comments No 0 (1 standard drink = 0.6 oz pure alcoho l) Sex Assigned at Date Recorded Not on file documented as of this encounter Patient Instructions Patient InstructionsLotus Busby APRN - 09/05/2016 11:30 AM EST BARIATRIC SURGERY DISCHARGE INFORMATION CONTACT INFORMATION: [phone] Surgeons: Kt Ferreira and Shanae [phone] Manager Mass: [phone] (Monday through Monday, 8:00 AM -5:00 PM) Dietitians: [phone] Non-business hours: [phone], ask for general surgeon operations superintendent FOR EMERGENCIES: CALL 911 (trouble breathing, chest [...] with your pharmacist first. BLOOD CLOT PREVENTION: ?? You WILL be discharged on enoxaparin injections twice daily for 10 days to prevent blood clots. Be active, walk at least 4 times a day and do blood clot prevention exercises in your handbook on page82. The prescription is sent to [facility] IF YOU ARE TREATED FOR OBSTRUCTIVE [...] Follow up with primary care provider or neurology specialist in 1-2 weeks. Bring meter to [...] yearly for life. WOMEN OF CHILDBEARING AGE: ??? Fertility may increase with weight loss. Avoid for 18-24 months after surgery. Condomsalone are not acceptable as a form of control. Do not take control pills for the first month after surgery. documented in this encounter Progress Notes Lotus Busby APRN - 09/05/2016 11:30 AM EST Ruth attended a comprehensive two hour pre-operative class today, which included discussion of pre and post operative instructions included in the [facility] Bariatric Surgery Program Education Handbook. Theone hour nutrition component of the class was taught by the BSP RD. One hour of the class was spent providing nutrition education. OR date: RNY gastric bypass and possible liver biopsy given elevated LFT's by Dr. Meraz on 09/12/2016 Individualized plan of care: ?? CPAP use during hospital stay ?? Hold Furosemide 20 mg qd ?? Send prescription for enoxaparin to [facility] pharmacy on day of surgery to avoid delay in patient starting medication, since all enoxaparin prescriptions require prior approval ?? close glucose monitoring post discharge ?? Inpatient endocrine consult for diabetes management ?? Close blood pressure monitoring post discharge Recommendations for post discharge VTE prophylaxis (unless change in condition during hospitalization that would contraindicate treatment): Enoxaparin 40 mg BID x 10 days post discharge. Prescriptions provided at today's visit: (faxed to pharmacy) 1. Omeprazole 20 mg once daily x 3 months, to start upon discharge for ulcer prevention. May be refilled if symptomatic. OTC Vitamin and mineral supplements required post discharge: ?? Multivitamin with minerals twice daily ?? Vitamin B12 500 mcg by mouth once daily ?? Calcium citrate 600 mg with Vitamin D 400 units twice daily ?? Iron with Vitamin C, 50-66 mg once daily (take iron with vitamin C 550 mg to help with absorption) for patients with iron deficiency, anemia or menstruating females Bariatric Surgery Program Pathway and review of status with the requirements of the Bariatric Surgery Program 1. Education: She previously attended a Introduction to the [facility] Bariatric Surgery Program seminar,a two hour meeting that provides a program overview as well as expectations. The [facility] Bariatric Surgery Program Educational seminar requirement (3 seminars with post-testing) has been met. The BSP Educational Handbook was provided at visit #1. 2. Pre-operative programmatic evaluations have been done, as noted in previous pathway review. 3. Bariatric Surgery Program evaluations with RD and DIRECTOR OF FIELD COORDINATION have taken place, as noted in previous pathway documentation 4. Weight requirements have been achieved and documented. 5. All pre-operative requirements were achieved. 6. Surgical consultation has taken place, and she has been approved to proceed with surgery by surgeon and insurer. Next steps in pathway: ?? During hospitalization for bariatric surgery, a standard bariatric surgery order set is followed. ?? Routine post-operative follow up with labwork is done at months 1,4,12,18 and 24, yearly thereafter, and PRN. High risk patients are followed more frequently. Some of the topics reviewed during group discussion today included: ?? day of surgery and post-op routine care/ locations: Admissions/SDP/PACU/01/16/ [facility] ?? medications that increase the risk of bleeding including NSAIDS, ASA and Plavix to be avoided perguidelines pre and post-operatively ?? DVT/VTE prevention and signs of DVT/PE. ?? Inpatient management for VTE prevention: venodynes, ambulation, Enoxaparin 40 units BID during inpatient stay. ?? Indications for extended Enoxaparin 10 days post discharge: A. patients with BMI >60 or prior VTE OR B. 2 or more of the following: age >50, BMI >50, male gender, sleep apnea, varicose veins, venous insufficiency, history of oral contraceptive or hormone or post-menopausal hormone replacement use within 30 days of surgery, and recent smoking ?? guidelines for patients on Coumadin per prescribing physician or Anticoagulation Clinic ?? diabetes and hypertension monitoring post-operatively ?? signs and symptoms of infection as well as emergency signs and symptoms ?? common post-operative complaints ?? management of sleep apnea during hospitalization and post operatively. The importance of post-operative follow-up with Sleep Center after weight loss was stressed. ?? recommendations for psychiatric medications: should continue uninterrupted after surgery ?? activity post surgery/ return to work recommendations ?? pre-operative and post-operative dietary recommendations ?? post-op vitamin and mineral supplementation ?? routine BSP post-operative follow-up: 3 weeks. 4, 12,18, 24 months and yearly for LIFE ?? routine Primary Care post-operative follow up: at 10-14 days after surgery to monitor chronic health problems such as diabetes and hypertension, since the requirement for antihypertensive and diabetic medications may decrease or be discontinued A preliminary copy of the discharge instructions was provided, which is also available in the patient handbook. Ruth appeared to have a good understanding of the information presented, and asked appropriate questions. She satisfactorily completed the post-test administered, and achieved a grade of 100%. All her questions were answered. Time spent in individual counseling and coordination of care: 5 minutes Time spent in group counselin minutes Lotus Valencia APRN - 09/05/2016 11:30 AM EST One hour of today's group visit was spent in review of dietary and post op vitamin and mineral supplementation. Some of the topics reviewed today included: ??? pre-operative and post-operative dietary recommendations ??? post-op vitamin and mineral supplementation Ruth appeared to have a good understanding of the information presented, and asked appropriate questions. All her questions were answered. Negrito Franks [facility] - 09/05/2016 11:30 AM EST Patient's medications reviewed by pharmacist, current and planned post-op medication discussed with patient. Potential concerns address with patient and DRESSMAKER GARMENT FITTER. The following recommendations were made bythe pharmacist: ? -discussed patient's diabetes, reviewed concerns with low blood sugars both pre- op and post-op, especially U-500 insulin. Reviewed how to treat low blood sugars with 15 grams of carbs every 15 minutes until blood sugar above 80. Victoza has already been stopped. Insulin has already been reduced to 100units 4 times a day and patient is keeping close watch on blood sugars, no reported low blood sugars. Recommended that insulin be reduced more, as much as 50% reduction based on blood sugars, patient is following up with Endo team. -discussed blood pressure medications with patient and need to closely follow blood pressures, especially post-op. Lisinopril has already been reduced to 1/2 tablet daily. -discussed levothyroxine with patient, explained that it was a narrow therapeutic index and that adjustments might be needed, recommended that patient have levels re-checked 6 weeks post-op. -discussed furosemide and potassium tablets, these have both been stopped already. -patient has very concerned about costs of supplements, recommended chewable combination bariatric MVI and calcium citrate, as it is lower total cost compared to separate supplements. All of patient's questions answered to their satisfaction. Patient given pharmacist business card, encouraged to follow up with any other questions or concerns that may arise. documented in this encounter Plan of Treatment Not on filedocumented as of this encounter Visit Diagnoses Diagnosis Encounter for pre-bariatric surgery coun seling and education Morbid obesity with BMI of 50.0-59.9, ad ult Morbid obesity documented in this encounter Care Teams Gear Roller Relationship Specialty Start Date End Date Zhanna Francois APRN PCP - General 01/27/15 05/15/19 documented as of this encounter
--- OUTSIDE RECORDS SUMMARY | 2022-09-16 12:29 | XMS_ITS | Encounter Summary ---
:1965 Author Organization [facility] [place] [address] Care Team Providers Name Role Phone Zhanna Francois APRN Primary Care Provider Encounter Details Date Type Department Care Team Description 06/28/2016 Telephone General Surgery at [facility] Lotus Busby APRN [facility] [place] [address] [place] [phone] (Wo rk) Social History Tobacco Use Types Packs/Day Years Used Date Smoking Tobacco: Never Smokeless Tobacco: Never Alcohol Use Standard Drinks/Week Comments No 0 (1 standard drink = 0.6 oz pure alcoho l) Sex Assigned at Date Recorded Not on file documented as of this encounter Miscellaneous Notes Telephone Encounter - Lotus Busby APRN - 06/28/2016 10:13 AM EDT Attempted to contact [facility] regarding psychological evaluation and questions about Ruth Perez's extensive psychological history that was not provided in her packet but also concerns about patient's ability to be successful with bariatric surgery. Left a message with call back number. documented in this encounter Plan of Treatment Not on filedocumented as of this encounter Visit Diagnoses Not on filedocumented in this encounter Care Teams Baking Assistant Relationship Specialty Start Date End Date Zhanna Francois APRN PCP - General 01/27/15 05/15/19 documented as of this encounter
--- OUTSIDE RECORDS SUMMARY | 2022-09-16 12:29 | XMS_ITS | Encounter Summary ---
:1965 Author Organization [facility] [place] [address] Care Team Providers Name Role Phone Zhanna Francois APRN Primary Care Provider Encounter Details Date Type Department Care Team Description 07/25/2016 Telephone General Surgery at [facility] Lotus Busby APRN [facility] [place] [address] [place] [phone] (Wo rk) Social History Tobacco Use Types Packs/Day Years Used Date Smoking Tobacco: Never Smokeless Tobacco: Never Alcohol Use Standard Drinks/Week Comments No 0 (1 standard drink = 0.6 oz pure alcoho l) Sex Assigned at Date Recorded Not on file documented as of this encounter Miscellaneous Notes Telephone Encounter - Lotus Busby APRN - 07/25/2016 9:45 AM EDT Attempted to contact Ruth Perez regarding scheduling her SMA but unavailable and message left with call back number. documented in this encounter Plan of Treatment Not on filedocumented as of this encounter Visit Diagnoses Not on filedocumented in this encounter Care Teams Spare Person Relationship Specialty Start Date End Date Zhanna Francois APRN PCP - General 01/27/15 05/15/19 documented as of this encounter
--- OUTSIDE RECORDS SUMMARY | 2022-09-16 12:29 | XMS_ITS | Encounter Summary ---
:1965 Author Organization [facility] [place] [address] Care Team Providers Name Role Phone Zhanna Francois APRN Primary Care Provider Encounter Details Date Type Department Care Team Description 06/30/2016 Telephone General Surgery at [facility] [place] [address] Social History Tobacco Use Types Packs/Day Years Used Date Smoking Tobacco: Never Smokeless Tobacco: Never Alcohol Use Standard Drinks/Week Comments No 0 (1 standard drink = 0.6 oz pure alcoho l) Sex Assigned at Date Recorded Not on file documented as of this encounter Miscellaneous Notes Telephone Encounter - Anaid Crook - 06/30/2016 12:47 PM EDT Spoke on the phone with Ruth to check in with her about her chart review. A few items are missing, but I told her that I would be able to get most of the items since Ruth reported having such a hard time getting them sent to us. Ruth mentioned that she heard from [facility] and that they are terminating her coverage as of 07/09/16. She has Medicare, but is not able to pay any amount for the surgery out of pocket. I encouraged her to call medicare and inquire about her out of pocket expenses and what percentage of the cost she may be responsible for. documented in this encounter Plan of Treatment Not on filedocumented as of this encounter Visit Diagnoses Not on filedocumented in this encounter Care Teams Waste Collector Relationship Specialty Start Date End Date Zhanna Francois APRN PCP - General 01/27/15 05/15/19 documented as of this encounter
--- OUTSIDE RECORDS SUMMARY | 2022-09-16 12:29 | XMS_ITS | Encounter Summary ---
:1965 Author Organization [facility] [place] [address] Care Team Providers Name Role Phone Zhanna Francois APRN Primary Care Provider Reason for Visit Physical Therapy (Routine) - Closed Specialty Diagnoses / Procedures Referred By Contact Refer red To Contact Physical Therapy Diagnoses Morbid obesity with BMI of 50.0-59.9, adult Lotus Busby APRN [facility] [place] [address] [place] [address] Phone: Fax: Referral ID Status Reason Start Date Expiration Date Visits V isits Requested Authorized [id number] Closed Evaluate and 07/25/2016 07/25/2017 1 1 Treat Encounter Details Date Type Department Care Team Description 08/12/2016 Office Visit Rehabilitation Gym at Tram Muller orbid obesity with [facility], PT BMI of 50.0-59.9, [place] [address] CENTER [phone] PH[facility] MEDICINE & [place] [address] Social History Tobacco Use Types Packs/Day Years Used Date Smoking Tobacco: Never Smokeless Tobacco: Never Alcohol Use Standard Drinks/Week Comments No 0 (1 standard drink = 0.6 oz pure alcoho l) Sex Assigned at Date Recorded Not on file documented as of this encounter Progress Notes Tram Muller, PT - 08/12/2016 11:00 AM EDT Physical Therapy Evaluation Patient profile: Patient is a 51 y.o. female evaluated in the outpatient clinic for pre operative bariatric surgery to address mobility. PMH: Past Medical History Diagnosis Date ??? Actinic keratosis ??? Allergic rhinitis ??? Asthma ??? Chronic diarrhea ??? Depression ??? Diabetes mellitus 01/24/2012 ??? Fibromyalgia 01/24/2012 ??? HLD (hyperlipidemia) ??? HTN (hypertension) ??? Hypothyroidism ??? Migraine ??? Morbid obesity 01/24/2012 ??? Neurodermatitis ??? Paratubal cyst 01/24/2012 ??? Seborrheic keratosis ??? Sleep apnea 01/24/2012 ??? TBI (traumatic brain injury) Past Surgical History Procedure Laterality Date ??? Pro lap, rmv adnexal structure 01/23/2012 LAPAROSCOPY, REMOVAL OF ADNEXA performed by RAMILA SIMONS at [facility] MAIN OR ??? Thyroid surgery s/p thyroid ablation for Grave's disease ??? Cholecystectomy ??? Knee surgery Right x 2 ??? Ovarian cyst removal x 4 ??? section x 2 ??? Pro upper gi endoscopy, biopsy N/A 04/09/2015 EGD WITH BIOPSY performed by Bernardo Louis MD at [facility] ENDOSCOPY ??? Pro colonoscopy, remv lesn, snare N/A 04/09/2015 COLONOSCOPY, POLYPECTOMY, REMOVAL LESION BY SNARE performed by Bernardo Louis MD at [facility] ENDOSCOPY ??? Pro colonoscopy, biopsy N/A 04/09/2015 COLONOSCOPY FLEXIBLE, WITH BX performed by Bernardo Louis MD at [facility] ENDOSCOPY ??? Dilation and curettage of uterus Social History: Lives with her 3 teenagers. She drives a car and is active with the kids, but statesthat she is not able to walk very far due to right knee and bilateral hip pain. She is independent with all ADL's. Her sister or mother can help with driving and errands as needed. Sleeps in a reclineror on the couch. Cannot lie flat. Stairs at home: 1 to enter the home. Equipment at home: Dentalink crutches. Her toilet seat is a good height for her. Precautions/Special Considerations: full code Subjective: I cant sleep flat. I have a way of getting off the couch. I can only stand for about 5 mins before my legs get really weak and I collapse from my neuropathy. Objective: Pt was seen for evaluation with OT. Pain: right knee pain. Vital Signs: Not tested. Mental Status/Behavior: Very talkative, oriented. Strength: grossly wfl ROM: limited by body habitus Sensation: decreased to light touch both feet , lower legs and right finger tips. Skin: nt Bed Mobility: Pt was able to get on/off mat independently with log roll technique. Transfers: ? ? Sit <-> Stand independently but with difficulty. Gait: ??? Pt. ambulated at least 80' with 2 tristanian crutches independently ??? Up and down 1 step with rail and 1 crutch. Leads with left leg up and right leg down. Balance: good with crutches. Education: reviewed post op mobility expectations. Assessment: Very pleasant, talkative woman who uses crutches at baseline due to right chronic knee pain and bilateral hip and spinal stenosis. She is independent at home, but relies on Aleve for joint pain. She sleeps in a recliner in the upright position. She was instructed in post op mobility instructions. She has great help at home, and should manage well after surgery, but may be limited by joint pain. No new equipment needs anticipated. Plan: Will follow up after surgery if needed. Total time spent with patient: 25 minutes Total timed interventions: 0 minutes Pager: [phone] TRAM MULLER PT Physical Therapy Rehabilitation Department G-Code: Mobility Status Modifier CURRENT CI - At least 1 percent but less than 20 percent impaired, limited or restricted PROJECTED CI - At least 1 percent but less than 20 percent impaired, limited or restricted DISCHARGE CI - At least 1 percent but less than 20 percent impaired, limited or restricted G Code Rationale: This G-Code and these disability modifiers were selected as the primary therapy goal based upon the patient's evaluation including the following functional test(s) No Functional Measure Used. Current ability measures, co-morbidities and clinical judgement were also used to select the disability modifier. Ms. Galeana's current G-Code functional level is 1-19% impaired based upon evaluation. documented in this encounter Plan of Treatment Scheduled Referrals Name Type Priority Associated Diagnoses Order S chedule Referral to Outpatient Referral Routine Morbid obesity with O rdered: Physical Therapy BMI of 50.0-59.9, 2015 adult documented as of this encounter Visit Diagnoses Diagnosis Morbid obesity with BMI of 50.0-59.9, ad ult Morbid obesity documented in this encounter Care Teams Senior Game Designer Relationship Specialty Start Date End Date Zhanna Francois APRN PCP - General 01/27/15 05/15/19 documented as of this encounter
--- OUTSIDE RECORDS SUMMARY | 2022-09-16 12:29 | XMS_ITS | Encounter Summary ---
:1965 Author Organization [facility] [place] [address] Care Team Providers Name Role Phone Zhanna Francois APRN Primary Care Provider Reason for Visit Reason Onset Date Comments Prior Authorization 11/04/2015 Encounter Details Date Type Department Care Team Description 11/04/2015 Telephone Endocrinology at [facility] [place] [address] Social History Tobacco Use Types Packs/Day Years Used Date Smoking Tobacco: Never Smokeless Tobacco: Never Alcohol Use Standard Drinks/Week Comments No 0 (1 standard drink = 0.6 oz pure alcoho l) Sex Assigned at Date Recorded Not on file documented as of this encounter Miscellaneous Notes Telephone Encounter - Leona Toribio - 11/04/2015 3:56 PM EST Medication Prior Authorization [place] Medication name/dose/directions: HUMULIN R U-500 - Inject 100 Units subcutaneously 4 times daily Rationale for request: TYPE II DM Health plan: [employer] Authorizing traffic workforce representative name: EMI Faxed to health plan on: 11/04/15 Health plan decision: APPROVED Quantity approved: Authorization number: Start date: 10/16/15 End date: 11/04/18 Patient notified? Pharmacy notified? documented in this encounter Plan of Treatment Not on filedocumented as of this encounter Visit Diagnoses Not on filedocumented in this encounter Care Teams Shredded Filler Cigar Maker Machine Relationship Specialty Start Date End Date Zhanna Francois APRN PCP - General 01/27/15 05/15/19 documented as of this encounter
--- OUTSIDE RECORDS SUMMARY | 2022-09-16 12:29 | XMS_ITS | Encounter Summary ---
:1965 Author Organization [facility] [place] [address] Care Team Providers Name Role Phone Zhanna Francois APRN Primary Care Provider Encounter Details Date Type Department Care Team Description 06/24/2016 Telephone General Surgery at [facility] [place] [address] Social History Tobacco Use Types Packs/Day Years Used Date Smoking Tobacco: Never Smokeless Tobacco: Never Alcohol Use Standard Drinks/Week Comments No 0 (1 standard drink = 0.6 oz pure alcoho l) Sex Assigned at Date Recorded Not on file documented as of this encounter Miscellaneous Notes Telephone Encounter - Anaid Crook - 06/24/2016 3:38 PM EDT LMOM for Ruth Perez to let her know that we got her dietary note and that I am passing her chart on to be reviewed by the rest of the team. documented in this encounter Plan of Treatment Not on filedocumented as of this encounter Visit Diagnoses Not on filedocumented in this encounter Care Teams Shield Operator Relationship Specialty Start Date End Date Zhanna Francois APRN PCP - General 01/27/15 05/15/19 documented as of this encounter
--- OUTSIDE RECORDS SUMMARY | 2022-09-16 12:29 | XMS_ITS | Encounter Summary ---
:1965 Author Organization [facility] [place] [address] Care Team Providers Name Role Phone Zhanna Francois APRN Primary Care Provider Reason for Visit Reason Comments Medication Refill Encounter Details Date Type Department Care Team Description 02/21/2016 Refill Endocrinology at [facility] Lluvia Rios APRN [facility] [place] [address] ENDOCRINOLOGY DEPT. [phone] [place], [place] [address] (Wo rk) Social History Tobacco [...] on filedocumented in this encounter Care Teams Barrel Charrer Helper Relationship Specialty Start Date End Date Zhanna Francois APRN PCP - General 01/27/15 05/15/19 documented as of this encounter
--- OUTSIDE RECORDS SUMMARY | 2022-09-16 12:29 | XMS_ITS | Encounter Summary ---
:1965 Author Organization [facility] [place] [address] Care Team Providers Name Role Phone Zhanna Francois APRN Primary Care Provider Reason for Visit Reason Comments Medication Refill Encounter Details Date Type Department Care Team Description 03/22/2016 Refill Endocrinology at [facility] Lluvia Rios APRN [facility] [place] [address] ENDOCRINOLOGY DEPT. [phone] [place], [place] [address] (Wo rk) Social History Tobacco Use Types Packs/Day Years Used Date Smoking Tobacco: Never Smokeless Tobacco: Never Alcohol Use Standard Drinks/Week Comments No 0 (1 standard drink = 0.6 oz pure alcoho l) Sex Assigned at Date Recorded Not on file documented as of this encounter Miscellaneous Notes Telephone Encounter - Gina Urias RN - 03/23/2016 11:35 AM EDT Message sent to secretaries to contact patient for follow up appointment documented in this encounter Plan of Treatment Not on filedocumented as of this encounter Visit Diagnoses Not on filedocumented in this encounter Care Teams Handbag Designer Relationship Specialty Start Date End Date Zhanna Francois APRN PCP - General 01/27/15 05/15/19 documented as of this encounter
--- OUTSIDE RECORDS SUMMARY | 2022-09-16 12:29 | XMS_ITS | Encounter Summary ---
:1965 Author Organization [place] [address] Care Team Providers Name Role Phone Zhanna Francois JESSE Primary Care Provider Encounter Details Date Type Department Care Team Description 08/17/2016 Office Visit General Surgery at [facility] obesity with [facility] MD Nico BMI of 50.0-59.9, Formerly [facility] [address] [place], [place] GENERAL SURGERY [address] [place] [address] [phone] Social History Tobacco Use Types Packs/Day Years Used Date Smoking Tobacco: Never Smokeless Tobacco: Never Alcohol Use Standard Drinks/Week Comments No 0 (1 standard drink = 0.6 oz pure alcoho l) Sex Assigned at Date Recorded Not on file documented as of this encounter Last Filed Vital Signs Vital Sign Reading Time Taken Comments Blood Pressure 126/60 08/17/2016 9:55 AM EDT Pulse 61 08/17/2016 9:55 AM EDT Temperature 36.9 ??C (98.4 ??F) 08/17/2016 9:55 AM EDT Respiratory Rate 20 08/17/2016 9:55 AM EDT Oxygen Saturation 97% 08/17/2016 9:55 AM EDT Inhaled Oxygen Concentration - - Weight 149.2 kg (328 lb 14.4 oz) 08/17/2016 9:55 AM EDT Height 162.6 cm (5' 4.02) 08/17/2016 9:55 AM EDT Body Mass Index 56.43 08/17/2016 9:55 AM EDT documented in this encounter Progress Notes Thanh Meraz MD - 08/17/2016 10:20 AM EDT Ruth Galeana is a 51-year-old female who is here to discuss bariatric surgery. At this point, she has had full participation in the [facility] Bariatric Surgery program and meets NIH criteria for weight loss surgery. She is interested in a [place]-en-Y gastric bypass. I spent 25 minutes with her today, the entire time in [id number] conversation regarding risks and benefits of different types of bariatric surgery. I am comfortable with her decision to undergo a [place]-en-Y gastric bypass. She does have several prior abdominal surgeries, which may or may not make intraabdominal adhesions prohibitive for the [place]-en-Y. Also, she has a very elevated BMI as well as a large abdomen, which can also make bringing the [place] limb up to the stomach pouch very [...] making, and we will plan on a [place]-en-Y gastric bypass with possible sleeve. Either way, we also will do an upper GI endoscopy at the conclusion to rule out leak from the stomach pouch. I went over with her in detail the risk section of the [facility] bariatric surgery manual for both gastric bypass [...] at some point in the near future. documented in this encounter Plan of Treatment Not on filedocumented as of this encounter Visit Diagnoses Diagnosis Morbid obesity with BMI of 50.0-59.9, ad ult Morbid obesity documented in this encounter Care Teams Production Line Manager Relationship Specialty Start Date End Date Zhanna Francois APRN PCP - General 01/27/15 05/15/19 documented as of this encounter
--- OUTSIDE RECORDS SUMMARY | 2022-09-16 12:29 | XMS_ITS | Encounter Summary ---
:1965 Author Organization [facility] [place] [address] Care Team Providers Name Role Phone Zhanna Francois APRN Primary Care Provider Reason for Visit Occupational Therapy (Routine) - Closed Specialty Diagnoses / Procedures Referred By Contact Refer red To Contact Occupational Therapy Diagnoses Morbid obesity with BMI of 50.0-59.9, adult Lotus Busby APRN [facility] [place] [address] [place] [address] Phone: Fax: Referral ID Status Reason Start Date Expiration Date Visits V isits Requested Authorized [id number] Closed Evaluate and 07/25/2016 07/25/2017 1 1 Treat Encounter Details Date Type Department Care Team Description 08/12/2016 Office Visit Rehabilitation Gym at [facility] bid obesity with [facility] Kesha OT BMI of 50.0-59.9, [facility] D [facility] [place] [address] CENTER [phone] PHYSICAL MEDICINE & [place] [address] Social History Tobacco Use Types Packs/Day Years Used Date Smoking Tobacco: Never Smokeless Tobacco: Never Alcohol Use Standard Drinks/Week Comments No 0 (1 standard drink = 0.6 oz pure alcoho l) Sex Assigned at Date Recorded Not on file documented as of this encounter Progress Notes Devang Tatum OT - 08/12/2016 11:00 AM EDT Occupational Therapy Pre-operative Bariatric Surgery Evaluation Patient profile: Ruth Galeana is a 51 y.o. female patient of Emili Manuel APRN, seen todayfor pre op bariatric surgery evaluation. Past Medical History Diagnosis Date ??? Actinic [...] OF ADNEXA performed by RAMILA SIMONS at [facility] MAIN OR ??? Thyroid surgery s/p thyroid ablation for Grave's disease ??? Cholecystectomy ??? Knee surgery Right x 2 ??? Ovarian cyst removal x 4 ??? section x 2 ??? Pro upper gi endoscopy, biopsy N/A 04/09/2015 EGD WITH BIOPSY performed by Bernardo Louis MD at [facility] ENDOSCOPY ??? Pro colonoscopy, remv lesn, snare N/A 04/09/2015 COLONOSCOPY, POLYPECTOMY, REMOVAL LESION BY SNARE performed by Bernardo Lousi MD at [facility] ENDOSCOPY ??? Pro colonoscopy, biopsy N/A 04/09/2015 COLONOSCOPY FLEXIBLE, WITH BX performed by Bernardo Louis MD at [facility] ENDOSCOPY ??? Dilation and curettage of uterus Social History: Patient lives with her 3 teenaged children. None of them have their drivers license. Home Setup: 1 stair to enter, 1 level home; tub shower DME: lofstrand crutches, grab bar in tub Baseline ADL/Mobility: Independent with ADL???s and IADL???s. Pt ambulates using her lofstrand crutches. When she grocery shops she uses the electric cart. She is active within the home doing her daily chores. She enjoys swimming and crafting. Pt sleeps either in recliner or on couch and wears CPAP at night. Subjective: I want to be able to be more active. Objective: Seen today for pre-operative OT evaluation. Vision & Perception: functional Cognitive status/behavior: pt with h/o TBI and reports it effects her STM. Pt has systems in place to compensate. Range of motion, strength, coordination: Bilateral UEs are within functional limitations Sensation: neuropathy B feet and R hand Activities of Daily Living: Upper and lower body dressing and bathing: ?? Pt demonstrated ability to don socks/shoes while seated by pulling BLE into modified figure 4 ?? Pt provided with greige mender and long handled sponge and educated in use for ADL [facility] 6 Clicks Daily Activity Inpatient Short Form How much help from another person does the patient currently need... Total (1) A Lot (2) A Little (3) None (4) 1. Putting on and taking off regular lower body clothing? X 2. Bathing (including washing, rinsing, drying)? X 3. Toileting, which includes using toilet, bedpan or urinal? X 4. Putting on and taking off regular upper body clothing? X 5. Taking care of personal grooming such as brushing teeth? X 6. Eating meals? X Raw Score: 23 Standardized Score: 51.12 CMS 0-100% Score: 15.86% CMS Modifier: CI Functional Mobility: Supine to sit: reviewed log roll, pt able to complete with supervision Sit to stand: independent Ambulation: household distance independent with lofstrand crutches Stand to sit: independent Sit to supine: independent Balance: fair+. IADL???s: Assistance available to patient. Pain: C/o chronic back, hip, and knee pain. Informed Consent: The patient agrees to and understands the OT treatment plan and goals. Education: patient educated on role of occupational therapy/rehabilitation, transfers, functional mobility, activity pacing/energy conservation, home management/modifications, expectations after surgery (including self-care during hospitalization), benefits of activity for strengthening and endurance,use of adaptive equipment for ADLs, and safety. Assessment: Pt seen for pre op bariatric surgery assessment. Pt educated on expectations after surgery, home modifications, energy conservation, home safety in general. Eval Date: 08/12/2016 G-Code: Self-Care Status Modifier CURRENT CI - At least [...] patient's evaluation including the following functional test(s) [facility] 6 Clicks Daily Activity Form. Current ability measures, co-morbidities and clinical judgement were also used to select the disability modifier. This Patient's current G-Code functional level is 15% impaired based upon 6 clicks. Total time spent with patient: 25 minutes for evaluation Total timed interventions: 0 minutes Pager: [phone] DEVANG TATUM OT 08/12/2016 Occupational Therapy Rehabilitation Department documented in this encounter Plan of Treatment Scheduled Referrals Name Type Priority Associated Order Schedule Diagnoses Referral to Outpatient Referral Routine Morbid obesity with O rdered: Occupational Therapy BMI of 50.0-59.9, adult documented as of this encounter Visit Diagnoses Diagnosis Morbid obesity with BMI of 50.0-59.9, ad ult Morbid obesity documented in this encounter Care Teams Principal Android Developer Relationship Specialty Start Date End Date Zhanna Francois APRN PCP - General 01/27/15 05/15/19 documented as of this encounter
--- OUTSIDE RECORDS SUMMARY | 2022-09-16 12:29 | XMS_ITS | Encounter Summary ---
:1965 [place] [address] Care Team Providers Name Role Phone Alessandro Wasco Jhonny MOLINA Primary Care Provider Reason for Visit Auth/Cert Specialty Diagnoses / Procedures Referred By Contact Refer red To Contact Diagnoses Obesity OBESITY UNK Procedures PRO LAP GASTRIC BYPASS/ESCOBAR-EN-Y PRO UPPER GI ENDOSCOPY, DIAGNOSTIC @LAPAROSCOPIC GASTROPLASTY, ENDOSCOPY, UPPER GI, DIAGNOSTIC, WITH OR WITHOUT SPECIMENS Referral ID Status Reason Start Date Expiration Date Visits Requ ested Visits Authorized [id number] 1 1 Encounter Details Date Type Department Care Team Description 09/12/2016 Anesthesia Event Main Operating Room Leona Toure MD [facility] ANESTHESIOLOGY [place], [place] [id number] [place] [id number] [phone] Anesthesia Record Procedure Summary Procedure Name Responsible Anesthesia Start Anesthesia Stop Anesthesiologist Time Time @Cem QUINTERO Rebecca E, MD 09/12/16 1045 09/12/16 13 52 SURG/GASTRIC RESTRICTIVE PROC, LONGITUDINAL GASTRECTOMY (WRVU 20.38) (Abdomen) Events Date Time Event Comment 09/12/2016 1020 1045 AN Verify 1045 Start 1045 An Start Data 1053 An Induction 1058 An Intubation 1100 Anesthesia Ready 1126 Procedure Start 1131 Quick Note SPO2 probe very positional 1155 Quick Note Recruitment annette th 1241 Quick Note 40mm Bougie plac ed at request of surgeon and under direct lap aroscopic visualization 1342 Extubation/LMA Out 1343 an stop data 1352 Recovery or ICU Handoff Patient care was transferred to the destination unit staff after review of the patient's medica l history, current anesthetic/surgi severiano status and plan, according to the Provider Handoff Checklist. 1352 Stop Name Total Midazolam 2 mg fentaNYL 100 mcg Propofol 250 mg Rocuronium 100 mg PHENYLephrine 120 mcg ePHEDrine 10 mg Ondansetron 8 mg Neostigmine 4 mg Glycopyrrolate 0.8 mg ceFAZolin (ANCEF) 3g in dextrose 5% 100 mL 3 g Propofol INF 778.6 mg lactated ringers infusion 1,000 mL 1,600 mL Agents Name O2 Air N2O Sevoflurane (et) Blood No blood administrations on file. Lines, Drains, and Airways Type Details Placement Removal Incision 01/23/12; 0820; abdomen 01/23/12 0820 by 2 1715 by ((4) ports); 06/13/22 Danis Morgan, RN Anya er, Charlie L (LDA cleanup utility RA#[id number]); 1715 (LDA cleanup utility RA#[id number]) PIV 01/29/18 (Auto removal 07/04/16 0817 by 01/29/18 0921 by via utility); 0921 (Auto Pluta, Marcos Barry Epic, U ser removal via utility) PIV 09/12/16; 1038; cephalic 09/12/16 1038 by 1830 by vein (lateral side of Sakshi Kulkarni RN Parso ns, Suzanne Barry RN arm), left; [id number] catheter system; 18 gauge; RM; 09/15/16; 1830 ETT Mask Ventilation: Easy 09/12/16 1058 by 09/12/16 1342 by (1); ETT Type: Cuffed, Kim Gutierrez, CALENDER FEEDER Randall Kim de la rosa, Oral; ETT Size: 7 mm; Mac CALENDER FEEDER Blade: 4 (Grade 2 B); Indirect:Video; Notes: Asleep, Cricoid Pressure, Stylette, Pre-O2; Attempts: 2; Laryngoscopy Grade: 1; ETT Placement Verified By: Auscultation, Capnometry, Visual; Secured at Teeth: 22 cm; Inserted by: Regi Gutierrez NG/OG Tube 11/28/16; 1059; 09/12/16 1059 by 09/12/16 1330 b y orogastric; 16 Fr; mouth; Kim Gutierrez CRNA McIntyre, Megan N, 09/12/16; 1330 RN Urethral Catheter 09/12/16; 1105; Surgery 09/12/16 1105 by 09/12 1330 by longer than 2 hours; Gina Oswald, Kim Youngblood, Physician order; RN indwelling double lumen catheter; 100% silicone; 14; inserted at this facility; 1; 5; 10; none; drainage bag to dependent drainage; 09/12/16; 1330 Incision 09/12/16; 1125; abdomen; 09/12/16 1125 by 1715 by laparoscopic punctures Gina Oswald, DEBBIE Joyner er, Dierdre L (specify); 06/13/22 (LDA cleanup utility RA#[id number]); 1715 (LDA cleanup utility RA#[id number]) documented in this encounter Social History Tobacco Use Types Packs/Day Years Used Date Smoking Tobacco: Never Smokeless Tobacco: Never Alcohol Use Standard Drinks/Week Comments No 0 (1 standard drink = 0.6 oz pure alcoho l) Sex Assigned at Date Recorded Not on file documented as of this encounter OR Notes Anesthesia Postprocedure Evaluation - Leona Priest MD - 09/12/2016 2:54 PM EST [facility] Department of Anesthesiology Post-procedure Note Patient: Ruth Galeana Procedure Summary Date Anesthesia Start Anesthesia Stop Room / Location 09/12/16 1045 1352 [facility] OR 26 / [facility] OR Procedure Diagnosis Surgeon Responsible Provider @LAPAROSCOPY, SURG/GASTRIC RESTRICTIVE PROC, LONGITUDINAL GASTRECTOMY (N/A Abdomen); ENDOSCOPY, UPPER GI, DIAGNOSTIC, WITH OR WITHOUT SPECIMENS (N/A ) (OBESITY) Thanh Meraz MD Evans, Rebecca E, MD All Anesthesia Providers: Anesthesiologist: Leona Priest MD CALENDER FEEDER: Kim Gutierrez CRNA Last (1hr) Vitals: BP 125/52 (09/12/16 1445) Temp Pulse 72 (09/12/16 1445) Resp 17 (09/12/16 1445) SpO2 92 % (09/12/16 1445) Patient Location: PACU/SDP Level of Consciousness: Awake and Alert Pain Management: Pain Being Addressed PONV: PONV Resolved with Rx Cardiovascular Status: Hemodynamically Stable Respiratory Status: CPAP Postoperative Fluid Status: Intravascular EUvolemia Possible Anesthetic Complications: NONE apparent at time of evaluation Final Primary Anesthesia Type: General (The anesthetic type performed was the same as planned.) Comments: Using home CPAP; sats mid 90s. Mild nausea and discomfort; receiving active treatment. Anesthesia Preprocedure Evaluation - Leona Priest MD - 09/12/2016 7:17 AM EST Pre-Anesthesia Evaluation for: Ruth Galeana a 51 y.o. female. Procedure(s): @LAPAROSCOPIC GASTROPLASTY, ENDOSCOPY, UPPER GI, DIAGNOSTIC, WITH OR WITHOUT SPECIMENS Patient Active Problem List Diagnosis ??? Obesity ??? TBI (traumatic brain injury) ??? Depression ??? Hypothyroidism ??? Migraine ??? Allergic rhinitis ??? Asthma ??? Edema of lower extremity ??? Essential hypertension ??? Urinary incontinence ??? Chronic diarrhea ??? Abdominal pain ??? History of basal cell cancer ??? Actinic keratosis ??? Seborrheic keratosis ??? Accessory ovary ??? Neurodermatitis ??? Clavus ??? Hyperlipidemia ??? Right knee pain ??? Head injury, closed ??? AJITH (obstructive sleep apnea) A. PSG done in [place] at wt 252# on 09/14/05: moderate AJITH; AHI 18/hr B. Tried CPAP for a few years but stopped in 2006. She underwent a consultation at [facility] ion 06/16/10 and had a subsequent titration PSG at [facility] on 07/19/10 that showed resolution of AJITH at CPAP 13 using full face mask. She was last seen at [facility] by Dr. Sarmad Bolden on 09/07/2010. C. She presented to [facility] for re-evaluation on 12/03/15. Repeat titration recommended. D. PSG 04/21/16 at wt 329#: showed optimal pressure at BIPAP 18/14 cm; supine REM sleep; arousal index3/hr; PLM arousal 0.6/hr E. Compliance Summary 05/17/16-06/15/16: --average usage: 6 hours --% days with usage> 4 hrs: 83% --average AHI: 1.0/hr ??? Preoperative Class IV obesity with BMI of 50.0-59.9, adult Bariatric Surgery Program 1. Attended Introduction to the [facility] B[facility] seminar, a comprehensive two hour meeting that provides a program overview, education on bariatric surgeries offered at [facility], risks and benefits, as well as patient expectations and follow up: 04/20/12, 04/19/13, 07/19/13, 02/13/15, 06/17/16 [facility] BSP Educational seminars viewed: 3 Grades on post-testin% x 3 The BSP Educational Handbook is provided at preoperative visit #1. 2. Pre-operative programmatic evaluations required: PCP evaluation and letter of support to proceed with surgery, BSP labwork (can be done on day of visit #1) and psychological evaluation- minimum of 2visits. 3. Bariatric Surgery Program evaluations with RD and MIXER OPERATOR: Not scheduled 4. Weight history: 252# on 09/14/05; 279# on 09/15/06; 322# on 01/23/12; 333.8# on 05/05/15; 319.4# on 03/29/16; 328# on 06/15/16 5. Gallbladder status: 6. Insurer specific requirements: 3 consecutive months dietary counseling 7. BSP Team meeting discussion: Patient insight into causes of obesity: onset of obesity at age 5. Attributes weight gain to inactivity and over consumption. Reports gaining 100# as a result of staying at home for 18 months after a brain injury. ??? Diabetes mellitus Insulin requiring ??? Fibromyalgia ??? Paratubal cyst Past Medical History Diagnosis Date ??? Actinic [...] OF ADNEXA performed by RAMILA SIMONS at [facility] MAIN OR ??? Thyroid surgery s/p thyroid ablation for Grave's disease ??? Cholecystectomy ??? Knee surgery Right x 2 ??? Ovarian cyst removal x 4 ??? section x 2 ??? Pro upper gi endoscopy, biopsy N/A 04/09/2015 EGD WITH BIOPSY performed by Bernardo Louis MD at [facility] ENDOSCOPY ??? Pro colonoscopy, remv lesn, snare N/A 04/09/2015 COLONOSCOPY, POLYPECTOMY, REMOVAL LESION BY SNARE performed by Bernardo Louis MD at [facility] ENDOSCOPY ??? Pro colonoscopy, biopsy N/A 04/09/2015 COLONOSCOPY FLEXIBLE, WITH BX performed by Bernardo Louis MD at [facility] ENDOSCOPY ??? Dilation and curettage of uterus Social History Substance Use Topics ??? Smoking status: Never Smoker ??? Smokeless tobacco: Never Used ??? Alcohol use No History Drug Use No Allergies Allergen Reactions ??? Latex Rash ??? Amlodipine Other (See Comments) Suicidal thoughts ??? Imitrex [Sumatriptan Succinate] Suicidal thoughts ??? Lyrica [Pregabalin] Other (See Comments) Intolerance ??? Metformin Diarrhea ??? Prozac [Fluoxetine] Anxiety ??? Sulfa (Sulfonamide Antibiotics) ??? Tramadol Anxiety Medications: MAR and/or home medications have been reviewed. Physical Exam: There were no vitals filed for this visit. There is no height or weight on file to calculate BMI. Airway Assessment: Mallampati: II TM distance: <3 FB Neck ROM: full Cardiovascular Assessment: Rhythm: regular Rate: normal cardiovascular exam normal Pulmonary Assessment: breath sounds clear to auscultation pulmonary exam normal Dental Assessment: - normal exam Misc Assessment: Patient is wearing No contact(s). IV access: Peripheral line Anesthesia Plan: ASA 3 general, with a(n) intravenous induction Ruth Galeana is a 51 y.o. female presenting for laparoscopic escobar en y gastric bypass. Past medical history: Actinic keratosis Allergic rhinitis Asthma Chronic diarrhea Depression Diabetes mellitus 01/24/2012 Fibromyalgia 01/24/2012 HLD (hyperlipidemia) HTN (hypertension) Hypothyroidism Migraine Morbid obesity 01/24/2012 Neurodermatitis Paratubal cyst 01/24/2012 Seborrheic keratosis Sleep apnea 01/24/2012 TBI (traumatic brain injury) Obstructive sleep apnea Past surgical history: PRO LAP, RMV ADNEXAL STRUCTURE 01/23/2012 Comment:LAPAROSCOPY, REMOVAL OF ADNEXA performed by RAMILA SIMONS at [facility] MAIN OR THYROID SURGERY Comment:s/p thyroid ablation for Grave's disease CHOLECYSTECTOMY KNEE SURGERY Right Comment:x 2 OVARIAN CYST REMOVAL Comment:x 4 SECTION Comment:x 2 PRO UPPER GI ENDOSCOPY, BIOPSY N/A 04/09/2015 Comment:EGD WITH BIOPSY performed by Bernardo Louis MD at [facility] ENDOSCOPY PRO COLONOSCOPY, REMV LESN, SNARE N/A 04/09/2015 Comment:COLONOSCOPY, POLYPECTOMY, REMOVAL LESION BY SNARE performed by Bernardo Louis MD at [facility] ENDOSCOPY PRO COLONOSCOPY, BIOPSY N/A 04/09/2015 Comment:COLONOSCOPY FLEXIBLE, WITH BX performed by Bernardo Louis MD at [facility] ENDOSCOPY DILATION AND CURETTAGE OF UTERUS Labs: Lab Results Component Value Date WBC 8.6 07/22/2016 RBC 5.04 07/22/2016 HGB 14.2 07/22/2016 HCT 43.1 07/22/2016 MCV 85.5 07/22/2016 MCH 28.2 07/22/2016 MCHC 32.9 07/22/2016 PLATELET 220 07/22/2016 RDWCV 14.1 07/22/2016 No results for input(s): INR in the last 168 hours. No results found for: NA, K, CL, CO2, BUN, CREATININE, GLUCOSE Past anesthesia history: History of hypotension, low oxygen saturations in the PACU 2011 s/p laparoscopic procedure. History of substernal chest pain with a normal ECG in the recovery area 2014 s/p EGD. Oral airway for masking. Patient reports nausea after anesthesia; no history of motion sickness. She also reported a black lip and eye s/p last intubation and was told by the anesthesia staff that shewas difficult to intubate. Last PO intake: Food last evening; water last evening. No recent fever, cold, cough, chest pain, shortness of breath, seizure, or weakness. Patient can climb 2 flights of stairs slowly; uses the motorized carts at the grocery store; has [place] crutches for ambulation secondary to pain in her back, hips, and knees. Plan for general endotracheal anesthesia. Risks and benefits discussed with the patient. All questions answered. Region - Other Informed Consent: Anesthetic plan and risks discussed with patient. Plan discussed with CALENDER FEEDER. PAT Staff Note documented in this encounter Plan of Treatment Not on filedocumented as of this encounter Visit Diagnoses Not on filedocumented in this encounter Administered Medications Inactive Administered Medications - up to 3 most recent administrations Medication Order MAR Action Action Date Dose Rate Site ceFAZolin (ANCEF) 3g in dextrose 5% Given 09/12/2016 11:07 AM ES T 3 g 100 mL 3 g, Intravenous, ONCE, 1 dose, On Mon09/12/16 at 1030, Administer over 30 Minutes, call center supervisor to OR, Indication for (Active or Suspected): Skin/Skin Structure ePHEDrine 5 mg/mL multi-dose injection Given 09/12/2016 11:14 AM EST 10 mg PRN, Starting on Mon09/12/16 at 1114, Until Mon09/12/16 at 1352, Anesthesia Intra-op, Routine fentaNYL 50 mcg/mL multi-dose injection Given 09/12/2016 10:53 AM EST 100 mcg PRN, Starting on Mon09/12/16 at 1053, Until Mon09/12/16 at 1352, Pain, Anesthesia Intra-op, Routine glycopyrrolate (ROBINUL) multi-dose inje ction Given 09/12/2016 1:17 PM EST 0.8 mg PRN, Starting on Mon09/12/16 at 1317, Until Mon09/12/16 at 1352, Anesthesia Intra-op, Routine lactated ringers infusion 1,000 mL New Bag 09/12/2016 11:22 AM EST 1,000 mL, at 100 mL/hr, Intravenous, CONTINUOUS, Starting on Mon09/12/16 at 1015, Until Mon09/12/16 at 1416, Day of Surgery (Day of Procedure) New Bag 09/12/2016 10:45 AM EST New Bag 09/12/2016 10:15 AM EST 1,000 mLs 100 mL/hr midazolam (PF) (VERSED) 1 mg/mL multi-dose Given 09/12/2016 10:4 5 AM EST 2 mg injection PRN, Starting on Mon09/12/16 at 1045, Until Mon09/12/16 at 1352, Sleep, Anesthesia Intra-op, Routine neostigmine (PROSTIGMINE) multi-dose inj ection Given 09/12/2016 1:17 PM EST 4 mg PRN, Starting on Mon09/12/16 at 1317, Until Mon09/12/16 at 1352, Anesthesia Intra-op, Routine ondansetron (ZOFRAN) injection Given 09/12/2016 1:06 PM EST 8 mg PRN, Starting on Mon09/12/16 at 1306, Until Mon09/12/16 at 1352, Nausea, Anesthesia Intra-op, Routine PHENYLephrine HCl in NS (PF) Given 09/12/2016 12:28 PM EST 40 mc g (JONEL-SYNEPHRINE) 0.8 mg/10 mL (80 mcg/mL) multi-dose injection Syrg PRN, Starting on Mon09/12/16 at 1134, Until Mon09/12/16 at 1352, Anesthesia Intra-op, Routine Given 09/12/2016 11:34 AM EST 80 mcg propofol (DIPRIVAN) 10 mg/mL bolus injection Given 10:56 AM EST 50 mg (Anesthesia) PRN, Starting on Mon09/12/16 at 1053, Until Mon09/12/16 at 1352, Anesthesia Intra-op Given 09/12/2016 10:53 AM EST 200 mg propofol (DIPRIVAN) Rate/Dose 09/12/2016 1:25 100 mcg/kg/min 85.6 mL /hr infusion Change PM EST CONTINUOUS PRN, Starting on Mon09/12/16 at 1118, Until Mon09/12/16 at 1352, Anesthesia Intra-op, Routine Rate/Dose Change 09/12/2016 1:15 PM EST 125 mcg/kg/min 107 mL/hr Rate/Dose Change 09/12/2016 1:11 PM EST 100 mcg/kg/min 85.6 mL/hr rocuronium (ZEMURON) multi-dose injectio n Given 09/12/2016 12:25 PM EST 20 mg PRN, Starting on Mon09/12/16 at 1054, Until Mon09/12/16 at 1352, Anesthesia Intra-op, Routine Given 09/12/2016 11:23 AM EST 30 mg Given 09/12/2016 10:54 AM EST 50 mg documented in this encounter Care Teams Sweeper Brush Maker Machine Relationship Specialty Start Date End Date Zhanna Francois APRN PCP - General 01/27/15 05/15/19 documented as of this encounter
--- OUTSIDE RECORDS SUMMARY | 2022-09-16 12:29 | XMS_ITS | Encounter Summary ---
:1965 Author Organization [facility] Address [address] [place] [address] Care Team Providers Name Role Phone Alessandro Zhanna Barry APRN Primary Care Provider Encounter Details Date Type Department Care Team Description 07/22/2016 Laboratory Appointment Lab 3L Jocelyn Fitzpatrick Morbid obesity with BMI of 50.0-59.9, adult; [facility] Preop testing; [facility] Type 2 di abetes mellitus with complication; [facility] Obstructive sleep apnea; [place], [place] Screening for i lori deficiency anemia; [phone] Encounter for vitamin defici ency screening; [phone] Vitamin D defic iency Social History Tobacco Use Types Packs/Day Years [...] Date/Time Associated Diagnosis Comme nts PTH Routine 07/22/2016 8:27 Morbid obesity with Resul ts for this AM EDT BMI of 50.0-59.9, procedure are in adult the results Encounter for section. vitamin deficiency screening Preop testing HEMOGRAM Routine 07/22/2016 8:27 Morbid obesity with Resul ts for this AM EDT BMI of 50.0-59.9, procedure are in adult the results Preop testing section. DIFFERENTIAL, Routine 07/22/2016 8:27 Morbid obesity with Resu lts for this AUTOMATED AM EDT BMI of 50.0-59.9, procedure are in adult the results Preop testing section. VITAMIN B1, WHOLE Routine 07/22/2016 8:27 Morbid obesity with Results for this BLOOD AM EDT BMI of 50.0-59.9, procedure are in adult the results Preop testing section. IRON AND TIBC Routine 07/22/2016 8:27 Morbid obesity with Resu lts for this AM EDT BMI of 50.0-59.9, procedure are in adult the results Preop testing section. Type 2 diabetes mellitus with complication Obstructive sleep apnea Screening for iron deficiency anemia VITAMIN A Routine 07/22/2016 8:27 Morbid obesity with Resul ts for this AM EDT BMI of 50.0-59.9, procedure are in adult the results Preop testing section. VITAMIN D, 25-HYDROXY Routine 07/22/2016 8:27 Vitamin D defici ency Results for this AM EDT procedure are in Morbid obesity with the resu lts BMI of 50.0-59.9, section. adult Encounter for vitamin deficiency screening Preop testing CBC (WITH DIFF) Routine 07/22/2016 8:27 Morbid obesity with AM EDT BMI of 50.0-59.9, adult Preop testing URIC ACID Routine 07/22/2016 8:27 Morbid obesity with Resul ts for this AM EDT BMI of 50.0-59.9, procedure are in adult the results Preop testing section. TSH Routine 07/22/2016 8:27 Morbid obesity with Resul ts for this AM EDT BMI of 50.0-59.9, procedure are in adult the results Preop testing section. Type 2 diabetes mellitus with complication PREALBUMIN Routine 07/22/2016 8:27 Morbid obesity with Resul ts for this AM EDT BMI of 50.0-59.9, procedure are in adult the results Preop testing section. HEMOGLOBIN A1C Routine 07/22/2016 8:27 Results fo r this AM EDT procedure are i n the results section. FOLATE, SERUM Routine 07/22/2016 8:27 Morbid obesity with Resu lts for this AM EDT BMI of 50.0-59.9, procedure are in adult the results Preop testing section. FERRITIN Routine 07/22/2016 8:27 Morbid obesity with Resul ts for this AM EDT BMI of 50.0-59.9, procedure are in adult the results Preop testing section. Type 2 diabetes mellitus with complication Obstructive sleep apnea Screening for iron deficiency anemia VITAMIN B12 Routine 07/22/2016 8:27 Morbid obesity with Resul ts for this AM EDT BMI of 50.0-59.9, procedure are in adult the results Preop testing section. COMPREHENSIVE Routine 07/22/2016 8:27 Morbid obesity with Resu lts for this METABOLIC PANEL AM EDT BMI of 50.0-59.9, procedu re are in (NON-FASTING) adult the results Preop testing section. documented in this encounter Results (ABNORMAL) Hemoglobin A1c (07/22/2016 8:27 AM EDT) Analysis Performed At [facility] Time Signature Hemoglobin A1C 7.7 (H) 4.3 - 5.6 [facility] Comment: Reference Range: 4.3 - [...] 36: Suppl. 1, [id number] Est Avg Gluc 174 mg/dL [facility] Comment: eAG equivalents for HbA1c percentages: HbA1c(%) ?eAG(mg/dL) 6.0 ?126 6.5 ?140 7.0 ?154 7.5 ?169 8.0 ?183 8.5 ?197 9.0 ?212 9.5 ?226 10.0 ? 240 Limitations: The eAG calculation has not been validated on women, individuals below 18 years old and above 70 years old, and individuals with hemoglobinopathies. Additional resources are available on [employer] website: [email or web address] Kota STEIN, Sanford J, Livia R, et al. ??Tr anslating the A1C assay into estimated average glucose values. ??Diabetes Care 2008:31(8):2369-7232. Specimen Anatomical Collection Method Collection Time Receive d Time (Source) Location / / Volume Laterality Blood specimen Venous Draw / 07/22/2016 8:27 AM 2015 (specimen) Unknown EDT 10:41 AM EDT Resulting Agency Comment Spec In Lab Sonam Jolly MD CHEMISTRY ORDERABLES Performing Organization Address City/State/[place] [address] Differential, Automated (07/22/2016 8:27 AM EDT) P athologist Signature Neutrophils % 57.6 % [facility] Neutr Abs (ANC) 4.94 1.70 - [facility] 6.10 [facility] x10(3)/[facility] LABORATORY Lymphocytes % 30.7 % [facility] Lymphocytes Abs 2.6 0.9 - 3.2 [facility] x10(3)/[facility] LABORATORY Monocytes % 7.2 % [facility] Monocyte Abs 0.6 0.3 - 0.9 [facility] x10(3)[facility] LABORATORY Eosinophils % 3.4 % [facility] Eosinophils Abs 0.3 0.0 - 0.4 [facility] x10(3)/[facility] LABORATORY Basophils % 0.6 % [facility] Basophils Abs 0.0 0.0 - 0.1 [facility] x10(3)/[facility] LABORATORY Immature Gran % 0.50 % [facility] Comment: Immature granulocytes(IG's)percentage an d absolute count will include metamyelocytes, myelocytes, and promyelo cytes. Blood smears from CBCs yielding IG's will be scanned manually for concor dance. If this scan disagrees with the automated IG or if promyelocytes are not ed, a manual differential will be performed. Betzaida Gran Abs 0.04 0.00 - 0.04 x10(3)/[facility] MAR Y [facility] LABOR[facility]ORY Specimen Anatomical Collection Method Collection Time Receive d Time (Source) Location / / Volume Laterality Blood specimen 07/22/2016 8:27 AM 016 8:31 (specimen) EDT AM EDT Resulting Agency Comment Spec In Lab Sonam Jolly MD HEMATOLOGY ORDERABLES Performing Organization Address City/State/[place] [address] Hemogram (07/22/2016 8:27 AM EDT) P athologist Signature WBC 8.6 4.0 - 9.5 [facility] x10(3)/[facility] LABORATORY RBC 5.04 4.00 - [facility] 5.21 [facility] x10(6)/[facility] LABORATORY Hemoglobin 14.2 11.7 - [facility] 15.5 gm/dL [facility] Hematocrit 43.1 35.7 - [facility] 45.8 % [facility] MCV 85.5 82.6 - [facility] 94.4 [facility] LABORATORY MCH 28.2 27.1 - [facility] 32.0 pg [facility] MCHC 32.9 31.7 - [facility] 35.0 gm/dL [facility] Platelets 220 145 - 357 [facility] x10(3)/[facility] LABORATORY RDWSD 43.5 37.0 - [facility] 46.0 [facility] LABORATORY RDWCV 14.1 11.5 - [facility] 14.1 % [facility] MPV 11.0 7.6 - 12.9 [facility] LABORATORY nRBC % Auto 0.0 % [facility] nRBC Abs Auto 0.000 0.000 - [facility] 0.000 [facility] x10(3)/[facility] LABORATORY Specimen Anatomical Collection Method Collection Time Receive d Time (Source) Location / / Volume Laterality Blood specimen 07/22/2016 8:27 AM 016 8:31 (specimen) EDT AM EDT Resulting Agency Comment Spec In Lab Sonam Jolly MD HEMATOLOGY ORDERABLES Performing Organization Address City/State/ZIP Code Phon e Number [address] (ABNORMAL) TSH (07/22/2016 8:27 AM EDT) P athologist Signature TSH 0.25 (L) 0.27 - 4.20 [facility]N [facility]ST[facility] mcIU/mL [facility] Specimen Anatomical Collection Method Collection Time Receive d Time (Source) Location / / Volume Laterality Blood specimen 07/22/2016 8:27 AM 016 8:31 (specimen) EDT AM EDT Resulting Agency Comment Spec In Lab Sonam Jolly MD CHEMISTRY ORDERABLES Performing Organization Address City/[facility]/ZIP Code Phon e Number [address] Uric acid (07/22/2016 8:27 AM EDT) P athologist Signature Uric Acid 5.5 2.5 - 6.5 [facility] CHRISTINA mg/dL [facility] Specimen Anatomical Collection Method Collection Time Receive d Time (Source) Location / / Volume Laterality Blood specimen 07/22/2016 8:27 AM 8:31 (specimen) EDT AM EDT Resulting Agency Comment Spec In Lab Sonam Jolly MD CHEMISTRY ORDERABLES Performing Organization Address City/[facility]/ZIP Code Phon e Number [address] Folate, serum (07/22/2016 8:27 AM EDT) P athologist Signature Folate Lvl 4.8 4.8 - 24.2 JOCELYN IRIZARRYCHRISTINA ng/mL [facility] Specimen Anatomical Collection Method Collection Time Receive d Time (Source) Location / / Volume Laterality Blood specimen 07/22/2016 8:27 AM 016 8:31 (specimen) EDT AM EDT Resulting Agency Comment Spec In Lab Sonam Jolly MD CHEMISTRY ORDERABLES Performing Organization Address City/[facility]/[place] [address] Vitamin B12 (07/22/2016 8:27 AM EDT) athologist Signature Vitamin B-12 354 207 - 974 [facility] pg/mL [facility] Specimen Anatomical Collection Method Collection Time Receive d Time (Source) Location / / Volume Laterality Blood specimen 07/22/2016 8:27 AM 016 8:31 (specimen) EDT AM EDT Resulting Agency Comment Spec In Lab Sonam Jolly MD CHEMISTRY ORDERABLES Performing Organization Address City/State/ZIP Code Phon e Number [address] Vitamin B1, whole blood (07/22/2016 8:27 AM EDT) athologist Signature Vit B1 Lvl WB 165 70 - 180 [facility] nmol/L [facility] Comment: INTERPRETIVE INFORMATION: Vitamin B1, Wh ole Blood This assay measures the concentration of thiamine diphosphate (TDP), the primary active fo rm of vitamin B1. Approximately 90 percent of vitamin B1 p resent in whole blood is TDP. Thiamine and thiamine mono phosphate, which comprise the remaining 10 percent, are n ot measured. Test developed and characteristics deter mined by [employer]. See Compliance Statement B : [facility]/CS Performed by [employer], [address] [place] [id number] [email or web address], Xavier Bellamy MD - Lab. Director Test Performed by: [employer] [address] [place] [id number] Specimen Anatomical Collection Method Collection Time Receive d Time (Source) Location / / Volume Laterality Blood specimen 07/22/2016 8:27 AM 016 9:08 (specimen) EDT AM EDT Resulting Agency Comment Spec In Lab Sonam Jolly MD CHEMISTRY ORDERABLES Performing Organization Address City/State/ZIP Code Phon e Number [address] (ABNORMAL) Vitamin D, 25-Hydroxy (07/22/2016 8:27 AM EDT) athologist Signature 25-OH Vit D 23 (L) 30 - 100 JOCELYN FITZPATRICK Total ng/mL [facility] Comment: Deficient <10 ng/mL Insufficient 10 to 29 ng/mL Sufficient 30 to 100 ng/mL Potential Intoxication >100 ng/mL According to the [place] National Osteoporosi s Foundation, Vitamin D concentrations >30 ng/mL are sufficient to protect bone health. ??The National Kidney Foundation has similarly stated that pat ients with Vitamin D concentrations <30ng/mL should be considered to be insu fficient or deficient. http://[employer]/DHnatlkidneyfoundat ion http://[employer]/DHVitD The [employer] Vitamin D Immunoassay detec ts both 25-OH Vitamin D2 and 25-OH Vitamin D3, but only a total Vitamin D c oncentration is reported. Specimen Anatomical Collection Method Collection Time Receive d Time (Source) Location / / Volume Laterality Blood specimen 07/22/2016 8:27 AM 016 8:31 (specimen) EDT AM EDT Resulting Agency Comment Spec In Lab Sonam Jolly MD CHEMISTRY ORDERABLES Performing Organization Address City/[facility]/ZIP Code Phon e Number [address] (ABNORMAL) PTH (07/22/2016 8:27 AM EDT) P athologist Signature PTH 83 (H) 15 - 65 [facility] CHRISTINA pg/mL [facility] Specimen Anatomical Collection Method Collection Time Receive d Time (Source) Location / / Volume Laterality Blood specimen 07/22/2016 8:27 AM 016 8:31 (specimen) EDT AM EDT Resulting Agency Comment Spec In Lab Sonam Jolly MD CHEMISTRY ORDERABLES Performing Organization Address City/[facility]/ZIP [facility] Phon e Number [address] Vitamin A (07/22/2016 8:27 AM EDT) P athologist Signature Vitamin A 54.0 32.5 - 78.0 JOCELYN FITZPATRICK mcg/dL [facility] Comment: ADDITIONAL INFORMATIO N This test was developed and its performa nce characteristics determined by [facility] in a manner co nsistent with CLIA requirements. This test has not been nathaniel ared or approved by the U.S. Food and Drug Administration. Test Performed by: [facility] [address] [place] [address] Glass Sander: Thanh Parkinson II, M.D., Ph.D. Specimen Anatomical Collection Method Collection Time Receive d Time (Source) Location / / Volume Laterality Blood specimen 07/22/2016 8:27 AM 016 9:08 (specimen) EDT AM EDT Resulting Agency Comment Spec In Lab Sonam Jolly MD CHEMISTRY ORDERABLES Performing Organization Address City/[facility]/ZIP Code Phon e Number [address] Ferritin (07/22/2016 8:27 AM EDT) athologist Signature Ferritin 125 30 - 400 [facility] ng/mL [facility] Comment: Pediatric reference ranges not verified at [facility], interpret with caution. Reference ranges for females greater evangelista n 50 years of age approach values for men, i.e., 30-400 ng/mL. Specimen Anatomical Collection Method Collection Time Receive d Time (Source) Location / / Volume Laterality Blood specimen 07/22/2016 8:27 AM 016 8:31 (specimen) EDT AM EDT Resulting Agency Comment Spec In Lab Sonam Jolly MD CHEMISTRY ORDERABLES Performing Organization Address City/[facility] [place] [address] Iron and TIBC (07/22/2016 8:27 AM EDT) athologist Signature Iron 88 30 - 150 [facility] CHRISTINA mcg/dL [facility] TIBC 357 250 - 450 [facility] mcg/dL [facility] Iron Saturation 25 20 - 50 % [facility] Specimen Anatomical Collection Method Collection Time Receive d Time (Source) Location / / Volume Laterality Blood specimen 07/22/2016 8:27 AM 016 8:31 (specimen) EDT AM EDT Resulting Agency Comment Spec In Lab Sonam Jolly MD CHEMISTRY ORDERABLES Performing Organization Address City/State/ZIP Code Phon e Number [address] Prealbumin (07/22/2016 8:27 AM EDT) athologist Signature Prealbumin 27 20 - [address] [facility] mg/dL [facility] Comment: Prealbumin levels are generally lower in the pediatric population; adult concentrations are usually attained near puberty. Specimen Anatomical Collection Method Collection Time Receive d Time (Source) Location / / Volume Laterality Blood specimen 07/22/2016 8:27 AM 016 8:31 (specimen) EDT AM EDT Resulting Agency Comment Spec In Lab Sonam Jolly MD CHEMISTRY ORDERABLES Performing Organization Address City/[facility]/[place] [address] (ABNORMAL) Comprehensive metabolic panel (non-fasting) (07/22/2016 8:27 AM EDT) athologist Signature Glucose Lvl 195 65 - 199 [facility] mg/dL [facility] Comment: Diabetes: >=200 mg/dL plus symp toms BUN 15 8 - 18 mg/dL [facility] Creatinine 0.73 0.70 - 1.20 mg/dL [facility] Comment: Please note that the pediatric reference intervals supplied above were not validated at [facility]. Results from pediatri c patients should be interpreted in conjunction to the patient's age, height and muscle mass. Sodium 139 135 - 145 mmol/L [facility] Potassium 4.3 3.5 - 5.0 mmol/L [facility] Comment: Please note: ??Patients with WBC >100,00 0 may have falsely elevated Potassium levels. ??For accurate Potassium quantif ication in these patients send serum separator tube (gold top) for subsequent determinations. ??Contact the Clinical Chemistry Laboratory if there are any qu estions. Chloride 99 98 - 107 mmol/L [facility] CO2 26 22 - 31 mmol/L [facility] Anion Gap 14 5 - 15 mmol/L [facility] Calcium 10.2 8.5 - 10.5 mg/dL [facility] Total Protein 6.6 6.1 - 8.0 gm/dL [facility] Albumin 4.1 3.2 - 5.2 gm/dL [facility] AST 30 0 - 30 unit/L [facility] ALT 49 (H) 0 - 30 unit/L [facility] Alk Phos 108 (H) 40 - 104 unit/L [facility] Total Bilirubin 1.0 0.2 - 1.3 mg/dL [facility] Bili, Direct 0.2 0.0 - 0.3 mg/dL [facility] Estimated GFR >60 >=60 [facility] Comment: This estimated GFR [...] the following links into your internet browser. [email or web address]/DHnkdep [email or web address]/DHMCnkf Specimen Anatomical Collection Method Collection Time Receive d Time (Source) Location / / Volume Laterality Blood specimen 07/22/2016 8:27 AM 016 8:31 (specimen) EDT AM EDT Resulting Agency Comment Spec In Lab Sonam Jolly MD CHEMISTRY ORDERABLES Performing Organization Address City/State/[place] [address] documented in this encounter Visit Diagnoses Diagnosis Morbid obesity with BMI of 50.0-59.9, ad ult Morbid obesity Preop testing Preoperative examination, unspecified Type 2 diabetes mellitus with complicati on Obstructive sleep apnea Obstructive sleep apnea (adult) (pediatr ic) Screening for iron deficiency anemia Encounter for vitamin deficiency screeni ng Screening for other and unspecified endo crine, nutritional, metabolic, and immunity disorders Vitamin D deficiency Unspecified vitamin D deficiency documented in this encounter Care Teams [place] Relationship Specialty Start Date End Date Zhanna Francois APRN PCP - General 01/27/15 05/15/19 documented as of this encounter
--- OUTSIDE RECORDS SUMMARY | 2022-09-16 12:29 | XMS_ITS | Encounter Summary ---
:1965 Author Organization [facility] [place] [address] Care Team Providers Name Role Phone Zhanna Francois APRN Primary Care Provider Reason for Visit Diagnostic Test (Routine) Specialty Diagnoses / Procedures Referred By Contact Refer red To Contact Radiology Diagnoses Lung nodule Zhanna Francois APRN [facility] Rad Ct Scan Procedures CT Chest wo Contrast (Generic) CT Chest w Contrast CT Chest wwo Contrast [facility] [address] [place] [id number] [place] [address] Referral ID Status Reason Start Date Expiration Date Visits V isits Requested Authorized [id number] Specialty 06/30/2016 06/30/2017 1 1 Service Requested Encounter Details Date Type Department Care Team Description 07/04/[address] Scan at [facility] Zhanna Francois APRN Lung nodule [address] [phone] [place], [place] [address] (Wo rk) Social History Tobacco Use Types Packs/Day Years Used Date Smoking Tobacco: Never Smokeless Tobacco: Never Alcohol Use Standard Drinks/Week Comments No 0 (1 standard drink = 0.6 oz pure alcoho l) Sex Assigned at Date Recorded Not on file documented as of this encounter Medications at Time of Discharge Medication Sig Dispensed Refills Start Date End Date gabapentin (NEURONTIN) TAKE ONE CAPSULE BY 90 [...] 04/24/2007 mg tablet Tablet(s), PO, Once daily BD INSULIN SYRINGE USE WITH INSULIN 100 Syringe 1 05/25/2016 09/15/2016 ULTRA-FINE 0.3 mL 31 THREE TIMES A DAY gauge x 02/28 Syringe VITAMIN D 1,000 unit 0 04/08/201607/17 Tablet insulin regular hum Inject 115 Units 4 Box 11 05/25/2016 09/15/2016 U-500 conc 500 unit/mL subcutaneously 4 (3 mL) Insulin Pen times daily. insulin needles, Inject 1 each 200 each 11 05/25/201609/15 disposable, 32 gauge x subcutaneously 5 Needle times daily. omeprazole (PRILOSEC) Take 1 capsule by 30 capsule 1 016 07/22/2016 20 mg Capsule, Delayed mouth daily. Release(E.C.)Indication s: Gastroesophageal reflux disease without esophagitis insulin regular Inject 115 Units 40 mL 0 05/11/201604/2016 CONCENTRATE U-500 subcutaneously 4 (HUMULIN R U-500 times daily. Looks CONCENTRATED) 500 like 23 units using unit/mL Solution and insulin syringe dicyclomine (BENTYL) 10 TAKE 1 CAPSULE BY 120 capsule 6 08/1709/18/2019 mg Capsule MOUTH EVERY 6 HOURS NEEDED Blood Sugar Diagnostic Use one twice daily 200 each 3 03/1709/15/2016 ([employer]rator[employer]CH ULTRA TEST) as instructed Diag Strip code 250.02 saccharomyces boulardii Take 1 capsule by 60 capsule 3 02/1007/22/2016 (FLORASTOR) 250 mg mouth 2 times daily. CapsuleIndications: Diarrhea, Abdominal bloating loperamide (IMODIUM Take 1 tablet by 120 tablet 11 02/10/2015 09/15/2016 A-D) 2 mg Tablet mouth 4 times daily as needed for Diarrhea. Maximum 16 mg in 24 hours levothyroxine Take 50 mcg by mouth 0 1 11/19/2018 (SYNTHROID) 50 mcg daily. tablet lisinopril Take 20 mg by mouth 0 09/15 (PRINIVIL;ZESTRIL) 40 daily. mg tablet potassium chloride Take 10 mEq by mouth 0 09/05/2016 (K-DUR) 10 mEq tablet daily. furosemide (LASIX) 20 Take 20 mg by mouth 0 09/05/2016 mg tablet daily. ONE TOUCH DELICA by Misc.(Non-Drug; 0 09/15/2016 LANCETS MISC Combo Route) route 2 times daily. And PRN. nystatin-triamcinolone Apply topically 3 0 09/15/2016 (MYCOLOG II) cream times daily. LEVALBUTEROL TARTRATE Inhale into the lungs 0 07/22/2016 (XOPENEX HFA INHL) every 6 hours as needed. ibuprofen Take 1 tablet by 30 tablet 0 01/24/2012 07/22/20 16 (ADVIL;MOTRIN) 600 mg mouth every 6 hours. tablet CALCIUM CARBONATE (TUMS 0 04/24/2007 1 11/19/2018 ORAL) documented as of this encounter Plan of Treatment Not on filedocumented as of this encounter Procedures Procedure Name Priority Date/Time Associated Diagnosis Comme nts CT CHEST WO Routine 07/04/2016 8:33 AM Lung nodule Results f or this CONTRAST (GENERIC) EDT procedure are in the results section. documented in this encounter Results CT Chest wo Contrast (Generic) (07/04/2016 8:33 AM EDT) Anatomical Region Laterality Modality Chest Computed Tomography Specimen (Source) Anatomical Location Collection Method / Collectio n Time Received Time / Laterality Volume Impressions 07/04/2016 8:44 AM EDT 1. ??7 mm nodular opacity consistent with a benign intrapulmonary lymph node along the plane of the left major fissur e. 2. ??Mild coronary atherosclerotic calci fication. Narrative 07/04/2016 8:44 AM EDT EXAMINATION: CT CHEST WO CONTRAST CLINICAL HISTORY: lung nodule, left lowe r lobe TECHNIQUE: 3.75 mm thick axial contiguou s sections were obtained through the chest via helical acquisition without in travenous contrast administration. Thin-section reconstructions as well as coronal and sagittal reformatted images were generated. COMPARISON: None FINDINGS: Pulmonary parenchyma: 7 mm sezoi-te-jphf ngular nodular opacity along the undersurface of the major fissure in the left lower lobe on axial series 5 image 170, sagittal reconstruction series 602 image 114, and coronal reconstruction series 601 image 90, is compatible with an intrapulmonary lymph node. Curvilinear atelectasis versus scarring in the left upper lobe. Airways: No significant findings. Pleura: No pleural effusion. Lymph nodes:No thoracic lymphadenopathy. Heart, pericardium, and great vessels: M ild coronary atherosclerotic calcification. Other mediastinal structures: No signifi cant findings. Lower neck: No significant findings. Upper abdomen: Surgical clips in the gal lbladder fossa consistent with prior cholecystectomy. Skeletal structures: No significant find ings. Procedure Note Tisha Corrigan MD - 07/04/2016Formatt ing of this note might be different from the original. EXAMINATION: CT CHEST WO CONTRAST CLINICAL HISTORY: lung nodule, left lowe r lobe TECHNIQUE: 3.75 mm thick axial contiguou s sections were obtained through the chest via helical acquisition without in travenous contrast administration. Thin-section reconstructions as well as coronal and sagittal reformatted images were generated. COMPARISON: None FINDINGS: Pulmonary parenchyma: 7 mm qqfxi-hn-kgfv ngular nodular opacity along the undersurface of the major fissure in the left lower lobe on axial series 5 image 170, sagittal reconstruction series 602 image 114, and coronal reconstruction series 601 image 90, is compatible with an intrapulmonary lymph node. Curvilinear atelectasis versus scarring in the left upper lobe. Airways: No significant findings. Pleura: No pleural effusion. Lymph nodes:No thoracic lymphadenopathy. Heart, pericardium, and great vessels: M ild coronary atherosclerotic calcification. Other mediastinal structures: No signifi cant findings. Lower neck: No significant findings. Upper abdomen: Surgical clips in the gal lbladder fossa consistent with prior cholecystectomy. Skeletal structures: No significant find ings. IMPRESSION 1. 7 mm nodular opacity consistent with a benign intrapulmonary lymph node along the plane of the left major fissur e. 2. Mild coronary atherosclerotic calcifi cation. Zhanna Francois APRN IMG CT ORDERABLES documented in this encounter Visit Diagnoses Diagnosis Lung nodule Solitary pulmonary nodule documented in this encounter Care Teams Case Resolution Specialist Relationship Specialty Start Date End Date Zhanna Francois APRN PCP - General 01/27/15 05/15/19 documented as of this encounter
--- OUTSIDE RECORDS SUMMARY | 2022-09-16 12:29 | XMS_ITS | Encounter Summary ---
:1965 Author Organization [facility] Address [address] [address] Care Team Providers Name Role Phone Alessandro Zhanna Barry APRN Primary Care Provider Encounter Details Date Type Department Care Team Description 07/12/2016 Orders Only General Surgery at [facility] obesity with BMI of 50.0-59.9, adult; [facility] [employer] Encounter for vitamin deficiency screeni sandie; [facility] Pre op testing; [facility] Vitamin D deficiency ; [place] [phone] [place] [address] Type 2 diabetes mellitus with complicati on; [phone] Obstructive sle ep apnea; (Work) Screening for iron deficiency anemia Social History Tobacco Use Types Packs/Day Years Used Date Smoking Tobacco: Never Smokeless Tobacco: Never Alcohol Use Standard Drinks/Week Comments No 0 (1 standard drink = 0.6 oz pure alcoho l) Sex Assigned at Date Recorded Not on file documented as of this encounter Plan of Treatment Not on filedocumented as of this encounter Results (ABNORMAL) TSH (07/22/2016 8:27 AM EDT) P athologist Signature TSH 0.25 (L) 0.27 - 4.20 JOCELYN VASQUEZ mcIU/mL [facility] Specimen Anatomical Collection Method Collection Time Receive d Time (Source) Location / / Volume Laterality Blood specimen 07/22/2016 8:27 AM 016 8:31 (specimen) EDT AM EDT Resulting Agency Comment Spec In Lab Sonam Jolly MD CHEMISTRY ORDERABLES Performing Organization Address City/[facility]/ZIP Code Phon e Number [address] Uric acid (07/22/2016 8:27 AM EDT) athologist Signature Uric Acid 5.5 2.5 - 6.5 [facility] mg[facility]dL [facility] Specimen Anatomical Collection Method Collection Time Receive d Time (Source) Location / / Volume Laterality Blood specimen 07/22/2016 8:27 AM 016 8:31 (specimen) EDT AM EDT Resulting Agency Comment Spec In Lab Sonam Jolly MD CHEMISTRY ORDERABLES Performing Organization Address City/[facility]/ZIP Code Phon e Number [address] Folate, serum (07/22/2016 8:27 AM EDT) athologist Signature Folate Lvl 4.8 4.8 - 24.2 [facility] ng/mL [facility] Specimen Anatomical Collection Method Collection Time Receive d Time (Source) Location / / Volume Laterality Blood specimen 07/22/2016 8:27 AM 016 8:31 (specimen) EDT AM EDT Resulting Agency Comment Spec In Lab Sonam Jolly MD CHEMISTRY ORDERABLES Performing Organization Address City/[facility]/ZIP Code Phon e Number [address] Vitamin B12 (07/22/2016 8:27 AM EDT) athologist Signature Vitamin B-12 354 091 - 854 [facility] pg/mL [facility] Specimen Anatomical Collection Method Collection Time Receive d Time (Source) Location / / Volume Laterality Blood specimen 07/22/2016 8:27 AM 016 8:31 (specimen) EDT AM EDT Resulting Agency Comment Spec In Lab Sonam Jolly MD CHEMISTRY ORDERABLES Performing Organization Address City/[facility]/ZIP Code Phon e Number [address] Vitamin B1, whole blood (07/22/2016 8:27 AM EDT) athologist Signature Vit B1 Lvl WB 165 70 - 180 [facility] nmol/L [facility] Comment: INTERPRETIVE INFORMATION: Vitamin B1, Wh ole Blood This assay measures the concentration of thiamine diphosphate (TDP), the primary active fo rm of vitamin B1. Approximately 90 percent of vitamin B1 p resent in whole blood is TDP. Thiamine and thiamine mono phosphate, which comprise the remaining 10 percent, are n ot measured. Test developed and characteristics deter mined by [employer]. See Compliance Statement B : [employer]/CS Performed by [employer], [address] [place] [address] [email or web address], Xavier Bellamy MD - Lab. Director Test Performed by: [employer] [address] [place] [address] Specimen Anatomical Collection Method Collection Time Receive d Time (Source) Location / / Volume Laterality Blood specimen 07/22/2016 8:27 AM 016 9:08 (specimen) EDT AM EDT Resulting Agency Comment Spec In Lab Sonam Jolly MD CHEMISTRY ORDERABLES Performing Organization Address City/State/[place] [address] (ABNORMAL) Vitamin D, 25-Hydroxy (07/22/2016 8:27 AM EDT) athologist Signature 25-OH Vit D 23 (L) 30 - 100 [facility] Total ng/mL [facility] Comment: Deficient <10 ng/mL Insufficient 10 to 29 ng/mL Sufficient 30 to 100 ng/mL Potential Intoxication >100 ng/mL According to the [place] National Osteoporosi s Foundation, Vitamin D concentrations >30 ng/mL are sufficient to protect bone health. ??The National Kidney Foundation has similarly stated that pat ients with Vitamin D concentrations <30ng/mL should be considered to be insu fficient or deficient. http://[employer]/DHnatlkidneyfoundat ion http://[employer]/DHMCVitD [employer] Vitamin D Immunoassay detec [...] Jolly MD CHEMISTRY ORDERABLES Performing Organization Address City/[facility]/ZIP Code Phon e Number [address] (ABNORMAL) PTH (07/22/2016 8:27 AM EDT) P athologist Signature PTH 83 (H) 15 - 65 [facility] pg/mL [facility] Specimen Anatomical Collection Method Collection Time Receive d Time (Source) Location / / Volume Laterality Blood specimen 07/22/2016 8:27 AM 016 8:31 (specimen) EDT AM EDT Resulting Agency Comment Spec In Lab Sonam Jolly MD CHEMISTRY ORDERABLES Performing Organization Address [facility] Code Phon e Number [address] Vitamin A (07/22/2016 8:27 AM EDT) P athologist Signature Vitamin A 54.0 32.5 - 78.0 [facility] mcg/dL [facility] Comment: ADDITIONAL INFORMATIO N This test was developed and its performa nce characteristics determined by [facility] in a manner co nsistent with CLIA requirements. This test has not been nathaniel ared or approved by the U.S. Food and Drug Administration. Test Performed by: [address] [address] Contract Designer: Thanh Parkinson II, M.D., Ph.D. Specimen Anatomical Collection Method Collection Time Receive d Time (Source) Location / / Volume Laterality Blood specimen 07/22/2016 8:27 AM 016 9:08 (specimen) EDT AM EDT Resulting Agency Comment Spec In Lab Sonam Jolly MD CHEMISTRY ORDERABLES Performing Organization Address City/[facility]/[place] [address] Ferritin (07/22/2016 8:27 AM EDT) athologist Signature Ferritin 125 30 - 400 [facility] ng/mL [facility] Comment: Pediatric reference ranges not verified at [facility], interpret with caution. Reference ranges for females greater evangelista n 50 years of age approach values for men, i.e., 30-400 ng/mL. Specimen Anatomical Collection Method Collection Time Receive d Time (Source) Location / / Volume Laterality Blood specimen 07/22/2016 8:27 AM 016 8:31 (specimen) EDT AM EDT Resulting Agency Comment Spec In Lab Sonam Jolly MD CHEMISTRY ORDERABLES Performing Organization Address City/[facility]/[place] [address] Iron and TIBC (07/22/2016 8:27 AM EDT) athologist Signature Iron 88 30 - 150 [facility] mcg/dL [facility] TIBC 357 250 - 450 [facility] mcg/dL [facility] Iron Saturation 25 20 - 50 % [facility] Specimen Anatomical Collection Method Collection Time Receive d Time (Source) Location / / Volume Laterality Blood specimen 07/22/2016 8:27 AM 016 8:31 (specimen) EDT AM EDT Resulting Agency Comment Spec In Lab Sonam Jolly MD CHEMISTRY ORDERABLES Performing Organization Address City/[facility]/ZIP Code Phon e Number [address] Prealbumin (07/22/2016 8:27 AM EDT) athologist Signature Prealbumin 27 20 - 40 [facility] mg/dL [facility] Comment: Prealbumin levels are generally lower in the pediatric population; adult concentrations are usually attained near puberty. Specimen Anatomical Collection Method Collection Time Receive d Time (Source) Location / / Volume Laterality Blood specimen 07/22/2016 8:27 AM 016 8:31 (specimen) EDT AM EDT Resulting Agency Comment Spec In Lab Sonam Jolly MD CHEMISTRY ORDERABLES Performing Organization Address City/State/[place] [address] (ABNORMAL) Comprehensive metabolic panel (non-fasting) (07/22/2016 8:27 AM EDT) athologist Signature Glucose Lvl 195 65 - 199 [facility] mg/dL [facility] Comment: Diabetes: >=200 mg/dL plus symp toms BUN 15 8 - 18 mg/dL [facility] Creatinine 0.73 0.70 - 1.20 mg/dL [facility] Comment: Please note that the pediatric reference intervals supplied above were not validated at [facility]. Results from pediatri c patients should be interpreted in conjunction to the patient's age, height and muscle mass. Sodium 139 135 - 145 mmol/L [facility] Potassium 4.3 3.5 - 5.0 mmol/L [facility] Comment: Please note: ??Patients with WBC >100,00 0 may have falsely elevated Potassium levels. ??For accurate Potassium quantif ication in these patients send serum separator tube (gold top) for subsequent determinations. ??Contact the Clinical Chemistry Laboratory if there are any qu estions. Chloride 99 98 - 107 mmol/L [facility] CO2 26 22 - 31 mmol/L [facility] Anion Gap 14 5 - 15 mmol/L [facility] Calcium 10.2 8.5 - 10.5 mg/dL [facility] Total Protein 6.6 6.1 - 8.0 gm/dL [facility] Albumin 4.1 3.2 - 5.2 gm/dL [facility] AST 30 0 - 30 unit/L [facility] ALT 49 (H) 0 - 30 unit/L [facility] Alk Phos 108 (H) 40 - 104 unit/L [facility] Total Bilirubin 1.0 0.2 - 1.3 mg/dL [facility] Bili, Direct 0.2 0.0 - 0.3 mg/dL [facility] Estimated GFR >60 >=60 [facility] [...] the following links into your internet browser. http://[employer]/DHnkdep http://[employer]/DHMCnkf Specimen Anatomical Collection Method Collection Time Receive d Time (Source) Location / / Volume Laterality Blood specimen 07/22/2016 8:27 AM 016 8:31 (specimen) EDT AM EDT Resulting Agency Comment Spec In Lab Sonam Jolly MD CHEMISTRY ORDERABLES Performing Organization Address City/State/[place] [address] documented in this encounter Visit Diagnoses Diagnosis Morbid obesity with BMI of 50.0-59.9, ad ult Morbid obesity Encounter for vitamin deficiency screeni ng Screening for other and unspecified endo crine, nutritional, metabolic, and immunity disorders Preop testing Preoperative examination, unspecified Vitamin D deficiency Unspecified vitamin D deficiency Type 2 diabetes mellitus with complicati on Obstructive sleep apnea Obstructive sleep apnea (adult) (pediatr ic) Screening for iron deficiency anemia documented in this encounter Care Teams Psychiatric Clinician Relationship Specialty Start Date End Date Zhanna Francois APRN PCP - General 01/27/15 05/15/19 documented as of this encounter
--- OUTSIDE RECORDS SUMMARY | 2022-09-16 12:29 | XMS_ITS | Encounter Summary ---
:1965 Author Organization [facility] [place] [address] Care Team Providers Name Role Phone Zhanna Francois APRN Primary Care Provider Reason for Visit Reason Comments Morbid Obesity Encounter Details Date Type Department Care Team Description 08/12/2016 Office Visit General Surgery at Lotus Busby APRN [facility] [place] [address] Morbid obesity with BMI of 50.0-59.9, ad ult; [facility] Luisa Herrmann, RD [facility] [place] [address] Encounter for pre-bariatric surgery coun [place] [id number] Social History Tobacco Use Types Packs/Day Years Used Date Smoking Tobacco: Never Smokeless Tobacco: Never Alcohol Use Standard Drinks/Week Comments No 0 (1 standard drink = 0.6 oz pure alcoho l) Sex Assigned at Date Recorded Not on file documented as of this encounter Last Filed Vital Signs Vital Sign Reading Time Taken Comments Blood Pressure 119/54 08/12/2016 10:54 AM EDT Pulse 73 08/12/2016 10:54 AM EDT Temperature - - Respiratory Rate 20 08/12/2016 10:54 AM EDT Oxygen Saturation 93% 08/12/2016 10:54 AM EDT Inhaled Oxygen Concentration - - Weight 147.8 kg (325 lb 14.4 oz) 08/12/2016 10:54 AM EDT Height 162.6 cm (5' 4.02) 08/12/2016 10:54 AM EDT Body Mass Index 55.91 08/12/2016 10:54 AM EDT documented in this encounter Patient Instructions Patient InstructionsLotus Busby APRN - 08/12/2016 12:30 PM EDT BARIATRIC SURGERY PROGRAM SECOND VISIT Contact information: [facility] Admin coordinator Karen: [phone] or [phone] Dietitians: [phone] Surgeons/ nurse practitioners: [phone] or [phone] Nurse line: [phone] 1. Pending information: --Repeat liver functions on 08/17/2016 --Referral to PT/OT scheduled August 12, 2016 and notes to be reviewed --Request third dietary visit notes to be faxed to --Request copy of Durable Power of Library Clerk [employer] and can be mailed or brought to preoperative class 2. Ongoing weight loss is encouraged. There is a no weight gain policy between visits. The surgeon may opt to delay your surgery if you gain weight between visits. 3. Bring the Educational Handbook to the surgeon's visit. 4. After your surgical consultation, all pertinent information will be faxed to your insurer for approval, which can take a few weeks. Your surgery date and pre-operative class will be scheduled after your appointment with Dr. Meraz on August 17, 2016 at 10:20 AM. If you need to change your surgery date, please call Elsie or Hanh at to reschedule. Your surgery date may change if insurance is approval is delayed. Prepare for the Pre-op Class by doing the followin. Review the program handbook and come to class with a list of questions. 2. Watch the educational videos including Psychological Implications of bariatric surgery on the [facility] website under Bariatric Surgery ([email or web address]) 3. Come prepared to the class to discuss meal planning. 4. Bring your supplements 5. Come with tips and suggestions that my be helpful to others. Questions for your doctor, specialist or pharmacist: 5. Ask your doctor about medication suggestions if you currently take medications that are larger than the size of a tylenol. Large pills need to be crushed (if permitted by the drug go cart mechanic) ortaken in liquid form for TWO WEEKS after surgery. Diabetic oral medication often does not need to betaken after surgery) ?? If you take antinflammatory medications or steroid medicationsfor arthritis or asthma, please check with your doctor. These medications will likely need to be held 1 week prior to and at least a fewweeks after surgery. For women who take control or hormone medications and men who take hormone medications: these medications must be stopped 1 month before and after surgery. Use alternative forms of control. Bariatric surgery apps- [facility] facebook page: [email or web address] documented in this encounter Progress Notes Lotus Busby APRN - 08/12/2016 12:30 PM EDT Reason for visit: Ruth is a 51 y.o. year-old female who presents for review of progress since initial visit, and discussion of risks and benefits of bariatric surgery. Ms. Galeana's bariatric procedure of choice: RNY gastric bypass and possible liver biopsy given elevated LFT's by Dr. Meraz. History of present illness: see notes from 07/22/2016. She reports reviewing the handbook. Ruth Perez has lost 5.06# since her initial visit. She reports eating her protein first. She has been taking short walks every day, 15-20 minutes per day and getting up more frequently. She reports using her CPAP machine nightly. She brought a copy of her dietary visit dated 06/15/2016. BARIATRIC SURGERY PROGRAM PATHWAY Review of progress with the requirements of the Bariatric Surgery Program: 1. Attended Introduction to the [facility] Bariatric Surgery Program seminar, a comprehensive two hour meeting that provides a program overview, education on bariatric surgeries offered at [facility], risks and benefits, as well as patient expectations and follow up: 04/20/12, 04/19/13, 07/19/13, 02/13/15, 06/17/16 [facility] BSP Educational seminars viewed: 3 Grades on post-testin% x 3 The BSP Educational Handbook is provided at preoperative visit #1. 2. Pre-operative programmatic evaluations required: PCP evaluation and letter of support to proceed with surgery, BSP labwork (can be done on day of visit #1) and psychological evaluation- minimum of 2visits. 3. Bariatric Surgery Program evaluations with RD and SUPERVISOR COOLER SERVICE: Not scheduled 4. Weight history: 252# on 09/14/05; 279# on 09/15/06; 322# on 01/23/12; 333.8# on 05/05/15; 319.4# on 03/29/16; 328# on 06/15/16 Initial WT#: 330.2#; wt visit #2: 325.14# 5. Gallbladder status: s/p cholecystectomy 6. Insurer specific requirements: 3 consecutive months dietary counseling 7. BSP Team meeting discussion: no indication 8. Next steps in pathway: ?? Since all BSP requirements and testing have been completed: surgical consultation has been scheduled with Dr. Meraz ?? Following surgical consultation, if approved to proceed to surgery by surgeon and insurer: an operative date and Pre-operative Education Class, a 2 hour class taught by the Bariatric SUPERVISOR COOLER SERVICE and RD will be scheduled ?? During hospitalization for bariatric surgery, a standard bariatric surgery order set is followed. ?? Routine post-operative follow up with labwork is done at months 1,4,12,18 and 24, yearly thereafter, and PRN. High risk patients are followed more frequently. PMHx: ??? AJITH (obstructive sleep apnea): A. PSG done in [place] at wt 252# on 09/14/05: moderate AJITH; AHI 18/hr B. Tried CPAP for a few years but stopped in 2006. She underwent a consultation at [facility] ion 06/16/10 and had a subsequent titration PSG at [facility] on 07/19/10 that showed resolution of AJITH at CPAP 13 using full face mask. She was last seen at [facility] by Dr. Sarmad Bolden on 09/07/2010. ?? C. She presented to [facility] for re-evaluation on 12/03/15. Repeat [...] fall on black ice and evaluated at [facility]. Was evaluated by neurologist at [facility] --short term memory loss --she writes everything [...] after a night of drinking at a republic[employer] before 17th birthday --Multiple somatic complaints --PTSD: [...] Ergocalciferol 50, 000 units weekly Past Surgical History Procedure Laterality Date ??? Pro rosio, rmv adnexal structure 01/23/2012 LAPAROSCOPY, REMOVAL OF ADNEXA performed by RAMILA SIMONS at [facility] MAIN OR ??? Thyroid surgery s/p thyroid ablation for Grave's disease ??? Cholecystectomy ??? Knee surgery Right x 2 ??? Ovarian cyst removal x 4 ??? section x 2 ??? Pro upper gi endoscopy, biopsy N/A 04/09/2015 EGD WITH BIOPSY performed by Bernardo Louis MD at [facility] END[facility]COPY ??? Pro colonoscopy, remv lesn, snare N/A 04/09/2015 COLONOSCOPY, POLYPECTOMY, REMOVAL LESION BY SNARE performed by Bernardo Louis MD at [facility] ??? Pro colonoscopy, biopsy N/A 04/09/2015 COLONOSCOPY FLEXIBLE, WITH BX performed by Bernardo Louis MD at [facility] ??? Dilation and curettage of uterus Allergies Allergen Reactions ??? Latex Rash ??? Amlodipine Other (See Comments) Suicidal thoughts ??? Imitrex [Sumatriptan Succinate] Suicidal thoughts ??? Lyrica [Pregabalin] Other (See Comments) Intolerance ??? Metformin Diarrhea ??? Prozac [Fluoxetine] Anxiety ??? Sulfa (Sulfonamide Antibiotics) ??? Tramadol Anxiety Medication Sig ??? ergocalciferol (ERGOCALCIFEROL) 50,000 unit Capsule Take 1 capsule by mouth once a week for 24 doses. ??? BD INSULIN SYRINGE ULTRA-FINE 0.3 mL 31 gauge x 5/16 Syringe USE WITH INSULIN THREE TIMES A DAY ??? VITAMIN D 1,000 unit Tablet ??? liraglutide (VICTOZA) 0.6 mg/0.1 mL (18 mg/3 mL) Pen Injector Inject 1.8 mg subcutaneously daily. ??? insulin regular hum U-500 conc 500 unit/mL (3 mL) Insulin Pen Inject 115 Units subcutaneously 4 times daily. (Patient taking differently: Inject 110 Units subcutaneously 4 times daily.) ??? insulin needles, disposable, 32 gauge x 5/32 Needle Inject 1 each subcutaneously 5 times daily. ??? gabapentin (NEURONTIN) 100 mg Capsule TAKE ONE CAPSULE BY MOUTH THREE TIMES A DAY (Patient taking differently: TAKE ONE CAPSULE BY MOUTH THREE TIMES A DAY prn) ??? dicyclomine (BENTYL) 10 mg Capsule TAKE 1 CAPSULE BY MOUTH EVERY 6 HOURS NEEDED (Patient not taking: Reported on 07/22/2016) ??? Blood Sugar Diagnostic (Entigo ULTRA TEST) Strip Use one twice daily as instructed Diag code 250.02 ??? loperamide (IMODIUM A-D) 2 mg Tablet Take 1 tablet by mouth 4 times daily as needed for Diarrhea. Maximum 16 mg in 24 hours ??? levothyroxine (SYNTHROID) 50 mcg tablet Take 50 mcg by mouth daily. ??? levothyroxine (SYNTHROID) 200 mcg tablet Take 200 mcg by mouth daily. ??? lisinopril (PRINIVIL;ZESTRIL) 40 mg tablet Take 40 mg by mouth daily. ??? potassium chloride (K-DUR) 10 mEq tablet Take 10 mEq by mouth daily. ??? furosemide (LASIX) 20 mg tablet Take 20 mg by mouth daily. ??? rosuvastatin (CRESTOR) 20 mg tablet Take 20 mg by mouth daily. ??? ONE TOUCH DELICA LANCETS MISC by Misc.(Non-Drug; Combo Route) route 2 times daily. And PRN. ??? nystatin-triamcinolone (MYCOLOG II) cream Apply topically 3 times daily. ??? Budesonide-Formoterol (SYMBICORT) 160-4.5 mcg/Actuation HFAA Inhale into the lungs as needed. ??? cetirizine (ZYRTEC) 10 mg tablet Take 10 mg by mouth daily. ??? lidocaine (LIDODERM) 5 %(700 mg/patch) Place 3 patches onto the skin every 12 hours. PRN ??? ipratropium-albuterol (DUONEB) 0.5 mg-3 mg(2.5 mg base)/3 mL nebulizer solution Take 3 mLs by nebulization every 4 hours as needed. ??? atenolol (TENORMIN) 50 mg tablet 75MG = 1 1/2 Tablet(s), PO, Once daily ??? CALCIUM CARBONATE (TUMS ORAL) (Patient not taking: No sig reported) Anesthesia history (per patient): difficult airway. She reports being told one anesthesiologist thatshe was difficult to intubate but other anesthesiologist did not experience difficulty intubating her (no reports for review). Screening/other: Date Evaluation Results 2015 Primary care ?? 04/09/15 Colonoscopy Decreased sphincter tone found on [...] Mammogram BIRADS category 1: negative Never DEXA ?? Recent diagnostic screening/ evaluations since initial visit: - Referred to PT/OT and evaluated on 08/12/2016. - Ruth Perez started Ergocalciferol 50, 000 units once a week -Ruth Perez's Synthroid dose was decreased to 250 mcg from 300 mcg. Changes to review of systems/ medications since initial visit: Overall changes to comorbidities are noted in Updated Problem list. Review of plans for post-operative support after discharge: Family and friends Exam: no physical exam performed. Vital Signs: BP 119/54 (BP Location (NBP): Left arm) Comment (BP Location (NBP)): forearm Pulse 73 Resp 20 Ht 162.6 cm (5' 4.02) Wt (!) 147.8 kg (325 lb 14.4 oz) SpO2 93% BMI 55.91 kg/m2 Discussion of bariatric surgeries performed at [facility], risks and benefits, and the [facility] Bariatric Surgery Program requirements: The risks of immediate and shelter complications as well as the benefits of gastric bypass and sleeve gastrectomy surgeries, as outlined extensively in the Bariatric Surgery Program Handbook, which is a >100 page document, were reviewed. She is aware that all bariatric surgeries are elective procedures. The mechanism by which gastric bypass and sleeve gastrectomy surgeries lead to weight loss was reviewed. The concept that bariatric surgery is a tool for weight loss and not a cure for obesity was again emphasized. The need for commitment to shelter lifestyle changes, with healthy diet and regular physical activity was stressed to achieve and sustain shelter weight loss. Benefits of bariatric surgery discussed: ?? estimated loss of 50% - 70% of excess body weight with gastric bypass and sleeve gastrectomy, generally less weight loss after sleeve gastrectomy. Patients rarely achieve ideal body weight, especially patients with BMIs >50. ?? improvement or resolution of weight related comorbidities such as obesity- related hypertension, sleep apnea, NAFLD/ LEO, esophageal reflux, restrictive lung disease and hyperlipidemia when anticipated weight loss is achieved. ?? Type 2 diabetes improvement occurs in the majority of patients shortly after gastric bypass, often prior to discharge from the hospital, prior to any weight loss. Patients with >10 year history of diagnosis of type 2 diabetes often will need to remain on insulin shelter. There is less improvement to type 2 diabetes after sleeve gastrectomy as compared with gastric bypass. ?? patients also generally feel better, with improvement in self-esteem and activity levels. Potential but rare risks of gastric bypass and sleeve gastrectomy discussed: ?? inability to perform the operation ?? <0.01%. ?? bleeding and splenic injury with the need for blood transfusion ?? heart and lung complications, including prolonged mechanical ventilation and possible tracheostomy, very rare ?? wound infection and seroma, rare in laparoscopic patients ?? DVT with fatal pulmonary emboli. Prophylactic measures used including Enoxaparin, sequential compression devices and early ambulation. Some patients are discharged on extended Enoxaparin therapy whomeet scoring criteria ?? rhabdomyolysis ?? nutritional deficiencies, including protein-calorie malnutrition, vitamins B12, B1, D, folate, iron deficiency and anemia. ?? gallstones, significantly decreased by prophylactic treatment with Ursodiol for 6 months post-operatively. ?? peripheral neuropathy related to chronic poor nutrition or B vitamin deficiencies ?? transient telogen effluvium ?? patients weighing >350 pounds with increased risks related to radiology equipment weight limits, which may necessitate return to OR for evaluation Risks specific to gastric bypass discussed: ?? anastomotic leakage with the development of peritonitis and abscess, potentially leading to sepsis, renal failure and . ?? anastomotic stricture ?? Lifetime risk of anastomotic ulcer, increased with NSAID use, tobacco and regular alcohol use ?? lifetime risk of small bowel obstruction ?? lifetime risk of internal and trocar site hernias, rare ?? potential risk for renal calculi, increased with chronic poor hydration and prior history of renal calculi Risks specific to laparoscopic sleeve gastrectomy discussed: ?? leak at the staple line with the development of peritonitis and abscess, potentially leading to sepsis, renal failure and . The rate of leak after sleeve at [facility] is 0%. ?? stricture of gastric remnant with need for dilatation ?? prolonged nausea and vomiting early post surgery ?? Worsening or development of GERD ?? Potential revision to gastric bypass due to severe GERD ?? generally less weight loss than gastric bypass Potential secondary effects of bariatric surgeries discussed: ?? weight regain/ poor weight loss influenced by eating behaviors and lack of a regular exercise program. Drinking high calorie liquids, frequent snacking or ingestion of large amounts of soft foods will cause weight gain . ?? dumping syndrome associated with gastric bypass ?? Lactose intolerance associated with gastric bypass ?? sagging skin in any area, such as the face, torso and extremities following weight loss. Body contouring surgery may not be a covered benefit by the individual's insurer, and is associated with scarring, risk of infection etc. Patients are advised that if unable to accept the possibility of skin redundancy following weight loss, then they should not proceed with bariatric surgery. Bariatric surgery is done for health reasons, not to improve physical appearance. ?? transfer of addictions or symptom substitution behavior. When food is no longer available to secure a sense of comfort and/or relieve stress, some may turn to alcohol or illicit substances, while others may turn to excessive shopping, gambling or other indiscretions. ?? Worsening of psychiatric illness Ruth was advised that bariatric surgery would likely be ineffective for those who: ?? receive a great deal of satisfaction from eating ?? have active eating disorders including binge eating disorder and bulimia ?? are in the midst of serious personal or unstable psychiatric problems Other information discussed: For females of child-bearing age: avoidance of for at least 12-18 months post-operatively.Use of contraception is recommended. Bariatric Surgery Follow up for LIFE: ?? 3 weeks, 4, 8, 12,18 and 24 months, yearly thereafter. More frequent follow up done as clinicallyindicated. Labwork: done at all routine visits except 1 month post op Post-operative support group meetings: held on the first Monday of every month. All patients are encouraged to attend. Vitamin and mineral supplementation for LIFE: ?? B12 500 mcg sublingual daily, calcium citrate 500-600 mg with vitamin D 400- 500 mg BID, multivitamins with minerals and iron twice a day. Iron in the form of ferrous fumarate or carbonyl iron is taken with vitamin C once a day for menstruating females or those with iron deficiency or anemia. She appeared to have a good understanding of the information presented at today's meeting, and seemsto have reasonable and realistic expectations of bariatric surgery. She previously signed an agreement stating that She is willing to comply with instructions, lifetime vitamin and mineral supplements a nd programmatic follow up. Assessment/ Plan: 51 y.o. year old female with Class III obesity with established obesity-related chronic disease including hypertension, type 2 diabetes, hyperlipidemia, obstructive sleep apnea, mildly elevated LFT's, osteoarthritis, GERD, anxiety disorder, mild to moderate functional limitations in activities of daily living, mild to moderate physical symptoms including shortness of breath and dyspnea with mild-moderate exertion and impairment of well-being. Currently, bariatric surgery is the best treatment available for morbid obesity, providing the only mechanism for reproducible, effective, and sustained weight loss. Ms.. Galeana is interested in a laparoscopic approach to bariatric surgery, and meets BSP requirements. She is aware that conversion to an open procedure is possible. ??? An intraoperative liver biopsy may be considered to rule out liver pathology, since she has elevated liver functions. ??? Her Bariatric Surgery VTE Risk Assessment score, as determined at visit #1 is 3, which indicatesthat enoxaparin 40 mg SQ BID is recommended during inpatient stay as well as 10 days post discharge. Ms. Galeana has met the requirements of the [facility] Bariatric Surgery Program, and has an appointment today for surgical consultation. She was encouraged to call with any questions or concerns. Data reviewed: - Visit #2 questionnaire Information reviewed with patient: 1. [facility] Bariatric Surgery Program Educational Handbook, bariatric surgery patient agreement and risks and benefits of gastric bypass and sleeve gastrectomy reviewed in detail. Pending/ other: - Repeat liver functions on 08/17/2016 and await results for further management - Ongoing weight loss encouraged OR date: TBD after appointment with Dr. Meraz on 08/17/2016 at 1020 Preop class recommendations: VTE3, PPI, no Ursodiol s/p cholecystectomy, evidence of ongoing counseling, referral to rehab medicine (PT/OT) Time spent in counseling: Individual planning and coordination of care: 5 minutes Group counselin minutes Questions regarding [facility] Bariatric Surgery Program patients: please call Kayden Busby APRN or Zohra Manuel APRN at [phone] or [phone] beeper [phone]. Luisa Herrmann, RD - 08/12/2016 12:30 PM EDT BARIATRIC SURGERY PROGRAM NUTRITION EDUCATION 2nd Pre-Operative Visit Shared Medical Appointment Ruth Galeana attended a 2 hour shared medical appointment today for her second pre-operative visit with the Bariatric Surgery Program dietitian and nurse practitioner. Ms. Galeana is a morbidly obese female who has been referred for nutrition evaluation and diet instruction in anticipation of bariatric surgery. Previous conservative attempts at weight loss through dieting have been unsuccessful over the spring coiler. Advised patient that bariatric surgery is a weight loss tool not a solution; and ultimately weight loss will be achieved through proper eating and exercise habits. She was given suggestions for how to incorporate dietary and lifestyle changes into her daily schedule. Patient was given a copy of the program handbook at the initial appointment which includes specific information on all nutritional recommendations and guidelines. She was also given contact information for further nutritional questions. Ms. Galeana showed good understanding of the concepts discussed. Nutrition Topics Covered at Today's Appointment: ?? Pre-operative Surgical Diet ?? Purpose of diet ?? Appropriate foods ?? Protein goals ?? Carbohydrate goals ?? Calorie goals ?? Keeping a food log ?? Hydration and Appropriate Beverages ?? Post-Operative Diets (Stages I-IV) ?? Importance of following diet stages ?? Appropriate foods ?? Sample Menus ?? Vitamin/Mineral Supplementation ?? Common Food Intolerances ?? Dumping Syndrome ?? Sugar Alcohols ?? Physical Activity The appointment consisted of 60 minutes of group education and counseling. documented in this encounter Plan of Treatment Not on filedocumented as of this encounter Visit Diagnoses Diagnosis Morbid obesity with BMI of 50.0-59.9, ad ult Morbid obesity Encounter for pre-bariatric surgery coun seling and education documented in this encounter Care Teams Contractor [employer] Relationship Specialty Start Date End Date Zhanna Francois APRN PCP - General 01/27/15 05/15/19 documented as of this encounter
--- OUTSIDE RECORDS SUMMARY | 2022-09-16 12:30 | XMS_ITS | Encounter Summary ---
:1965 Author Organization [facility] [place] [address] Care Team Providers Name Role Phone Zahnna Francois APRN Primary Care Provider Reason for Visit Reason Onset Date Comments Prior Authorization 02/02/2015 Encounter Details Date Type Department Care Team Description 02/02/2015 Telephone Endocrinology at [facility] Marcos [place] [address] Social History Tobacco Use Types Packs/Day Years Used Date Smoking Tobacco: Never Smokeless Tobacco: Never Alcohol Use Standard Drinks/Week Comments No 0 (1 standard drink = 0.6 oz pure alcoho l) Sex Assigned at Date Recorded Not on file documented as of this encounter Miscellaneous Notes Telephone Encounter - Marcos Cerrato - 02/02/2015 1:40 PM EDT Medication Prior Authorization BILOTTA Medication name/dose/directions: HUMULIN R 500 UNITS/ML VIAL Rationale for request: DM [place] Authorizing special service representative name: MARCOS Faxed to health plan on: 02/02/15 Health plan decision: Approved Quantity approved: Authorization number: Start date: 11/14/14 End date: 02/09/2025 Patient notified? no Pharmacy notified? yes documented in this encounter Plan of Treatment Not on filedocumented as of this encounter Visit Diagnoses Not on filedocumented in this encounter Care Teams Bow Repairer Custom Relationship Specialty Start Date End Date Zhanna Francois APRN PCP - General 01/27/15 05/15/19 documented as of this encounter
--- OUTSIDE RECORDS SUMMARY | 2022-09-16 12:30 | XMS_ITS | Encounter Summary ---
:1965 Author Organization [facility] Address [address] [place] [address] Care Team Providers Name Role Phone Sirena Rossi APRN Primary Care Provider Encounter Details Date Type Department Care Team Description 01/13/2012 Hospital Encounter Laboratory Juan Manuel Cook MD Other and [facility] [address] unspecifi ed [address] [place], [place] GYNECOLOGY [phone] ONCOLOGY [phone] [place] [address] Social History Tobacco Use Types Packs/Day Years Used Date Smoking Tobacco: Never Smokeless Tobacco: Never Alcohol Use Standard Drinks/Week Comments No 0 (1 standard drink = 0.6 oz pure alcoho l) Sex Assigned at Date Recorded Not on file documented as of this encounter Medications at Time of Discharge Medication Sig Dispensed Refills Start Date End Date Budesonide-Formoterol Inhale into the lungs 0 (SYMBICORT) 160-4.5 as needed. Reported on mcg/Actuation HFAA 10/05/2016 cetirizine (ZYRTEC) 10 Take 10 mg by mouth 0 mg tablet daily as needed. Reported on 10/05/2016 lidocaine (LIDODERM) 5 Place 3 patches onto 0 %(700 mg/patch) the skin every 12 hours. Reported on 10/05/2016 atenolol (TENORMIN) 50 75MG = 1 1/2 Tablet(s), 0 04/24/2007 mg tablet PO, Once daily ibuprofen Take 1 tablet by mouth 30 tablet 0 01/24/2012 (ADVIL;MOTRIN) 600 mg every 6 hours. tablet OXYcodone-acetaminophe Take 1 tablet by mouth 30 tablet 0 0 01/23/2012 2015 n (ROXICET) 5-325 mg every 4 hours as needed per tablet for Pain. OXYcodone (ROXICODONE) Take 10 mg by mouth 0 2015 5 mg immediate release every 4 hours as tablet needed. pravastatin Take 80 mg by mouth 0 01/14 (PRAVACHOL) 80 mg daily. tablet furosemide (LASIX) 20 Take 20 mg by mouth 0 05/29/2012 mg tablet daily. sertraline (ZOLOFT) Take 200 mg by mouth 0 05/25/2016 100 mg tablet daily. insulin glargine Inject 60 Units 0 (LANTUS) 100 unit/mL subcutaneously 2 times vial injection daily. insulin aspart Inject subcutaneously 3 0 05/29/2012 (NOVOLOG KANIKA) 100 times daily (with unit/mL pen cartridge meals). Sliding scale lisinopril Take 20 mg by mouth 0 05/29 (PRINIVIL;ZESTRIL) 20 daily. mg tablet levothyroxine 224MCG = 2 Tablet(s), 0 04/24/2007 05/29/2012 (SYNTHROID) 112 mcg PO, Once daily tablet CALCIUM CARBONATE 0 04/24/2007 019 (TUMS ORAL) documented as of this encounter Plan of Treatment Not on filedocumented as of this encounter Procedures Procedure Name Priority Date/Time Associated Diagnosis Comme nts ABORH TYPE MANUAL Routine 01/13/2012 12:40 Result s for this PM EDT procedure are i n the results section. DIFFERENTIAL, Routine 01/13/2012 11:14 Results fo r this AUTOMATED AM EDT procedure are i n the results section. CREATININE Routine 01/13/2012 11:14 Other and Results for this AM EDT unspecified ovarian procedur e are in cyst the results section. ABO/RH TYPING Routine 01/13/2012 11:14 Other and Results fo r this AM EDT unspecified ovarian procedur e are in cyst the results section. CBC (WITH DIFF) Routine 01/13/2012 11:14 Other and Results for this AM EDT unspecified ovarian procedur e are in cyst the results section. ANTIBODY SCREEN Routine 01/13/2012 11:14 Other and Results for this AM EDT unspecified ovarian procedur e are in cyst the results section. CANCER ANTIGEN 125 Routine 01/13/2012 11:14 Other and Resul ts for this AM EDT unspecified ovarian procedur e are in cyst the results section. BUN Routine 01/13/2012 11:14 Other and Results for this AM EDT unspecified ovarian procedur e are in cyst the results section. HEMOGLOBIN A1C Routine 01/13/2012 11:14 Other and Results f or this AM EDT unspecified ovarian procedur e are in cyst the results section. ELECTROLYTES PANEL Routine 01/13/2012 11:14 Other and Resul ts for this AM EDT unspecified ovarian procedur e are in cyst the results section. TYPE AND SCREEN, SDP Routine 01/13/2012 10:55 Other and (F[facility], [facility] AM EDT unspecified ovarian SAME DAY PROGRAM cyst ONLY) documented in this encounter Results ABORH TYPE MANUAL (01/13/2012 12:40 PM EDT) Analysis Performed At Patho logist Time Signature Expires at [id number] [place] 721 on: MILLENNIUM ABORh Type A Pos CERNER MILLENNIUM Specimen Anatomical Collection Method Collection Time Receive d Time (Source) Location / / Volume Laterality Blood specimen 01/13/2012 12:40 2 (specimen) PM EDT 12:40 PM EDT Resulting Agency Comment Spec In Lab Juan Manuel Cook MD BLOOD BANK ORDERABLES Performing Organization Address City/State/[place] [address] [place] [facility]ENNIUM DIFFERENTIAL, AUTOMATED (01/13/2012 11:14 AM EDT) P athologist Signature Neutrophils % 68.8 34.0 - CERNER 71.0 % MILLENNIUM Neutr Abs (ANC) 6.12 1.50 - CERNER 6.30 MILLENNIUM x10(3)/mcL Lymphocytes % 22.9 19.0 - CERNER 53.0 % MILLENNIUM Lymphocytes Abs 2.0 1.0 - 3.6 CERNER x10(3)/mcL MILLENNIUM Monocytes % 5.3 4.0 - 13.0 CERNER % MILLENNIUM Monocyte Abs 0.5 0.2 - 1.0 CERNER x10(3)/mcL MILLENNIUM Eosinophils % 2.6 0.0 - 7.0 CERNER % MILLENNIUM Eosinophils Abs 0.2 0.0 - 0.5 CERNER x10(3)/mcL MILLENNIUM Basophils % 0.2 0.0 - 2.0 CERNER % MILLENNIUM Basophils Abs 0.0 0.0 - 0.2 CERNER x10(3)/mcL MILLENNIUM Immature Gran % 0.20 0.00 - CERNER 0.66 % MILLENNIUM Comment: Immature granulocytes(IG's)percentage an d absolute count will include metamyelocytes, myelocytes, and promyelo cytes. Blood smears from CBCs yielding IG's will be scanned manually for concor dance. If this scan disagrees with the automated IG or if promyelocytes are not ed, a manual differential will be performed. Betzaida Gran Abs 0.02 0.00 - 0.05 x10(3)/mcL [facility]ER [facility] Specimen Anatomical Collection Method Collection Time Receive d Time (Source) Location / / Volume Laterality Blood specimen 01/13/2012 11:14 2 (specimen) AM EDT 11:28 AM EDT Juan Manuel Cook MD HEMATOLOGY ORDERABLES Performing Organization Address City/State/ZIP Code Phon e Number [address] [facility] ANTIBODY SCREEN (01/13/2012 11:14 AM EDT) Analysis Performed At Patho logist Time Signature Ab Screen Negative [facility] Expires at [id number] [facility] 2358 on: [facility] Specimen Anatomical Collection Method Collection Time Receive d Time (Source) Location / / Volume Laterality Blood specimen 01/13/2012 11:14 2 (specimen) AM EDT 11:21 AM EDT Resulting Agency Comment Spec In Lab Juan Manuel Cook MD BLOOD BANK ORDERABLES Performing Organization Address City/State/ZIP Code Phon e Number [address] [facility] ABO/RH TYPING (01/13/2012 11:14 AM EDT) P athologist Signature ABORh Type A Pos CERNER MILLENNIUM Specimen Anatomical Collection Method Collection Time Receive d Time (Source) Location / / Volume Laterality Blood specimen 01/13/2012 11:14 2 (specimen) AM EDT 11:21 AM EDT Resulting Agency Comment Spec In Lab Juan Manuel Cook MD BLOOD BANK ORDERABLES Performing Organization Address City/State/[place] [address] CERROBERT LUJANIUM (ABNORMAL) Hemoglobin A1c (01/13/2012 11:14 AM EDT) Analysis Performed At Patho logis Time Signature Hemoglobin A1C 9.9 (H) 4.3 - 6.1 CERNER % MILLENNIUM Est Avg Gluc 237 mg/dL CERNER MILLENNIUM Comment: eAG equivalents for HbA1c percentages: HbA1c(%) ?eAG(mg/dL) 6.0 ?126 6.5 ?140 7.0 ?154 7.5 ?169 8.0 ?183 8.5 ?197 9.0 ?212 9.5 ?226 10.0 ? 240 Limitations: The eAG calculation has not been validated on women, individuals below 18 years old and above 70 years old, and individuals with hemoglobinopathies. Additional resources are available on [facility] ADA website: ??http://professional.diabetes.org/gluc osecalculator.aspx Reference: Kota STEIN, Sanford J, Livia R, et al. ??Tr anslating the A1C assay into estimated average glucose values. ??Diabetes Care 2008:31(8):5519-1519. Specimen Anatomical Collection Method Collection Time Receive d Time (Source) Location / / Volume Laterality Blood specimen 01/13/2012 11:14 2 (specimen) AM EDT 11:28 AM EDT Resulting Agency Comment Spec In Lab Juan Manuel Cook MD CHEMISTRY ORDERABLES Performing Organization Address City/[facility]/[place] [address] CERNER MILLENNIUM Cancer Antigen 125 (01/13/2012 11:14 AM EDT) athologist Signature CA 125 14 <=20 u/ml CERNER MILLENNIUM Comment: Beginning 09/15/08 the CA125 assay will b e performed by a new method. ??This new method will yield results that are, on a verage, 20% lower than the previous method. ??If you have been monitoring pa rudys, please interpret serial CA125 results with caution with regards to the reports dated after 09/14/08, taking into account this downshift. ??No adjust ment is needed for new patients being monitored after 09/14/08. ??The new refe rence range for the assay will be <21 U/mL versus <35 U/mL with the previous m ethod. ??If you have any questions, please contact the lab at [phone]. Specimen Anatomical Collection Method Collection Time Receive d Time (Source) Location / / Volume Laterality Blood specimen 01/13/2012 11:14 2 2:26 (specimen) AM EDT PM EDT Resulting Agency Comment Spec In Lab Juan Manuel Cook MD CHEMISTRY ORDERABLES Performing Organization Address City/[facility]/ZIP Code Phon e Number [address] CERNER MILLENNIUM Creatinine, serum (01/13/2012 11:14 AM EDT) P athologist Signature Creatinine 0.80 0.70 - CERNER 1.20 mg/dL MILLENNIUM Estimated GFR >60 >=60 CERNER MILLENNIUM Comment: The National Kidney Disease Education Pr ogram (NKDEP) has recommended all laboratories report estimated GFR (eGFR) along with plasma creatinine measurements to assist you with recognit ion of early kidney disease. Caveats: ??Plasma creatinine should be a t steady-state (unchanged within the past week). For patient s multiply eGFR by 1.2. The MDRD equation was developed using patients be tween the ages of 18 and 70 years. ?? The MDRD equation has not been validated for patients < 18 years of age and should not be used to assess renal function in the pediatric population. ??The MDRD eGFR equation will also overestimate the true GFR of patients above the age of 70. ??This overestimation is variable bu t increases with age. At present, NKDEP does NOT recommend usi ng the MDRD equation for drug dosing purposes and pharmacists should continue to use their current dosing methods. In addition, numerical eGFR values great er than 60 ml/min/1.73 square meters should be treated as > 60, and not an ex act number due to greater inaccuracies at these higher values. Per NKDEP, they classify normal renal function as any GFR >60ml/min/1.73 square meters; chronic kidney disease wh en GFR <60, and renal failure when GFR <15. ??This calculation may not be valid for patients with atypical muscle mass (very lean or obese), acute renal failur e, and in patients with diabetic kidney disease. References: http://nkdep.nih.gov/resources/NKDEP_Sug gestn4Labs_0606_508.pdf http://www.kidney.org/professionals/kls/ pdf/faq_gfr.pdf Kate K, Renato NA, Marli AK, Jonathon TS, Elmo AD, Frank ANDRE. Relative performance of the MDRD and CKD-EPI equa tions for estimating glomerular filtration rate among patients with vari ed clinical presentations. Clin J Am Soc Nephrol;6:1963-72. Specimen Anatomical Collection Method Collection Time Receive d Time (Source) Location / / Volume Laterality Blood specimen 01/13/2012 11:14 2 (specimen) AM EDT 11:27 AM EDT Resulting Agency Comment Spec In Lab Juan Manuel Cook MD CHEMISTRY ORDERABLES Performing Organization Address City/State/[place] [address] [facility] BUN (01/13/2012 11:14 AM EDT) athologist Signature BUN 14 8 - 18 CERNER mg/dL MILLENNIUM Specimen Anatomical Collection Method Collection Time Receive d Time (Source) Location / / Volume Laterality Blood specimen 01/13/2012 11:14 2 (specimen) AM EDT 11:27 AM EDT Resulting Agency Comment Spec In Lab Juan Manuel Cook MD CHEMISTRY ORDERABLES Performing Organization Address City/[facility]/[place] [address] CERNER MILLENNIUM Electrolytes panel (01/13/2012 11:14 AM EDT) athologist Signature Sodium 140 135 - 145 CERNER mmol/L MILLENNIUM Potassium 4.1 3.5 - 5.0 CERNER mmol/L MILLENNIUM Comment: Please note: ??Patients with WBC >100,00 0 may have falsely elevated Potassium levels. ??For accurate Potassium quantif ication in these patients send serum separator tube (gold top) for subsequent determinations. ??Contact the Clinical Chemistry Laboratory if there are any qu estions. Chloride 100 98 - 107 mmol/L CERNER MILLENN IUM CO2 29 22 - 31 mmol/L CERNER MILLENNI UM Anion Gap 11 5 - 15 mmol/L CERNER MILLENNIU M Specimen Anatomical Collection Method Collection Time Receive d Time (Source) Location / / Volume Laterality Blood specimen 01/13/2012 11:14 2 (specimen) AM EDT 11:27 AM EDT Resulting Agency Comment Spec In Lab Juan Manuel Coko MD CHEMISTRY ORDERABLES Performing Organization Address City/[facility]/[place] [address] CERNER MILLENNIUM CBC (with Diff) (01/13/2012 11:14 AM EDT) athologist Signature WBC 8.9 4.0 - 10.0 CERNER x10(3)/mcL MILLENNIUM RBC 5.07 3.93 - 5.22 CERNER x10(6)/mcL MILLENNIUM Hemoglobin 15.0 11.2 - 15.7 CERNER gm/dL MILLENNIUM Hematocrit 43.8 34.0 - 45.0 CERNER % MILLENNIUM MCV 86.4 79.0 - 94.0 CERNER fL MILLENNIUM MCH 29.6 26.6 - 32.2 CERNER pg MILLENNIUM MCHC 34.2 32.0 - 36.5 CERNER gm/dL MILLENNIUM Platelets 197 145 - 370 CERNER x10(3)/mcL MILLENNIUM RDWSD 44.1 35.0 - 46.0 CERNER fL MILLENNIUM RDWCV 14.2 10.9 - 14.4 CERNER % [facility] MPV 11.6 9.0 - 12.0 CERNER fL [facility] Specimen Anatomical Collection Method Collection Time Receive d Time (Source) Location / / Volume Laterality Blood specimen 01/13/2012 11:14 2 (specimen) AM EDT 11:28 AM EDT Resulting Agency Comment Spec In Lab Juan Manuel Cook MD HEMATOLOGY ORDERABLES Performing Organization Address City/State/[place] [address] [facility] documented in this encounter Visit Diagnoses Diagnosis Other and unspecified ovarian cyst documented in this encounter Care Teams Email Deployment Specialist Relationship Specialty Start Date End Date Sirena Rossi APRN PCP - General 09/23/10 01/26/15 MARY [address] [place] [address] documented as of this encounter
--- OUTSIDE RECORDS SUMMARY | 2022-09-16 12:30 | XMS_ITS | Encounter Summary ---
:1965 Author Organization [facility] [place] [address] Care Team Providers Name Role Phone Zhanna Francois JESSE Primary Care Provider Encounter Details Date Type Department Care Team Description 04/09/2015 Anesthesia Event [facility] [place] [facility] [place]olyn Sheridan, [facility] [place] [address] [facility] [phone] ANESTHESIOLOGY DEPT. [place], [place] 0[address] Anesthesia Record Procedure Summary Procedure Name Responsible Anesthesia Start Anesthesia Stop Time Anesthesiologist Time EGD WITH BIOPSY Karolyn Sheridan MD 04/09/15 0856 04/09/15 101 4 (WRVU 2.49) (Trunk) Events Date Time Event Comment 04/09/2015 0841 0856 AN Verify 0856 Start 0856 An Start Data 0857 Anesthesia Ready 0858 An Induction 1014 an stop data 1014 Stop Name Total IV Lidocaine 20 mg Propofol 50 mg Propofol INF 1,558.2 mg PHENYLephrine 160 mcg Lactated Ringers 800 mL Agents Name O2 Blood No blood administrations on file. Lines, Drains, and Airways Type Details Placement Removal Incision 01/23/12; 0820; abdomen ((4) 01/23/12 0820 by Leon elias, 06/13/22 1715 by ports); 06/13/22 (LDA Danis Rebolledo, Natasha Bradshaw cleanup utility [id number]); 1715 (LDA cleanup utility RA#[id number]) PIV 04/09/15; 0834; basilic vein 04/09/15 0834 by Li ttle, 04/09/15 1605 by right (medial side of arm); Savannah Baltazar RN Janneth on, Jonn Young RN [id number]-win-[id number] catheter system; 20 gauge; Jacky Cruz RN; distraction, intradermal injection, tolerated well; 04/09/15; 1605 documented in this encounter Social History Tobacco Use Types Packs/Day Years Used Date Smoking Tobacco: Never Smokeless Tobacco: Never Alcohol Use Standard Drinks/Week Comments No 0 (1 standard drink = 0.6 oz pure alcoho l) Sex Assigned at Date Recorded Not on file documented as of this encounter OR Notes Anesthesia Postprocedure Evaluation - Karolny Sheridan MD - 04/09/2015 3:10 PM EDT Patient: Ruth Galeana Procedure(s) Performed: Procedure(s): EGD WITH BIOPSY COLONOSCOPY, POLYPECTOMY, REMOVAL LESION BY SNARE COLONOSCOPY FLEXIBLE, WITH BX Actual Anesthetic: MAC, general Patient location: PACU Post-op pain: Adequate analgesia Post-op nausea: no nausea or vomiting Last Vitals: Filed Vitals: 04/09/15 1045 BP: 119/64 Pulse: 68 Resp: Post-op cardiovascular and respiratory status: is stable Level of consciousness: awake, alert and oriented Complications: no apparent complications and tolerated the procedure well Fluid Status: normal Pt w/ swollen lip and lower jaw pain post op, likely d/t OAW and jaw thrust needed to maintain patent AW throughout case. Lip swelling better after application ice pack. Pt also c/o substernal pressure at one point. ECG w/o evidence ischemia. Pain later relieved by belching. CXR done showed ?atelectasis vs aspiration, so pt sent for PA/lateral films. Read as streaky opacities, atelectasis vs aspiration. Pt no longer c/o chest pain, is not coughing, breathing normally. Willbe discharged w/ instruction to take deep breaths, contact Dr Louis's office if she develops cough,fever, or chest pain. Also strongly advised to follow up with CPAP titration. Anesthesia Preprocedure Evaluation - Karolyn Sheridan MD - 04/08/2015 2:57 PM EDT Pre-Anesthesia Evaluation for: Ruth Galeana a 50 y.o. female. Procedure(s): EGD, UPPER GI ENDOSCOPY COLONOSCOPY, DIAGNOSTIC Patient Active Problem List Diagnosis ??? Chronic diarrhea ??? Abdominal pain ??? History of basal cell cancer ??? Actinic keratosis ??? Seborrheic keratosis ??? Accessory ovary ??? Neurodermatitis ??? Clavus ??? Hyperlipidemia ??? Right knee pain ??? Head injury, closed ??? Sleep apnea ??? Morbid obesity ??? Diabetes mellitus Insulin requiring ??? Fibromyalgia ??? Paratubal cyst Past Medical History Diagnosis Date ??? Sleep apnea 01/24/2012 ??? Morbid obesity 01/24/2012 ??? Diabetes mellitus 01/24/2012 ??? Fibromyalgia 01/24/2012 ??? Paratubal cyst 01/24/2012 ??? Depression ??? Hypothyroidism ??? Asthma ??? HLD (hyperlipidemia) ??? Migraine ??? Allergic rhinitis ??? Chronic diarrhea ??? HTN (hypertension) ??? Neurodermatitis ??? Seborrheic keratosis ??? Actinic keratosis ??? TBI (traumatic brain injury) Past Surgical History Procedure Laterality Date ??? Lap, rmv adnexal structure 01/23/2012 LAPAROSCOPY, REMOVAL OF ADNEXA performed by RAMILA SIMONS at [facility] MAIN OR ??? Thyroid surgery s/p thyroid ablation for Grave's disease ??? Cholecystectomy ??? Knee surgery Right x 2 ??? Ovarian cyst removal x 4 ??? section x 2 History Substance Use Topics ??? Smoking status: Never Smoker ??? Smokeless tobacco: Never Used ??? Alcohol Use: No History Drug Use No Allergies Allergen [...] filed for this visit. There is no weight on file to calculate BMI. Airway Assessment: Mallampati: II TM distance: >3 FB Neck ROM: full 01/23/12 - 2 handed mask w/ 100 mm OAW Ma c 3 Gr 2 Cardiovascular Assessment: Pulmonary Assessment: Dental Assessment: - normal exam Mis Assessment: Patient is wearing No contact(s). IV access: Peripheral line Anesthesia Plan: ASA 3 MAC and general, with a(n) intravenous induction 50 yo F w/ chronic diarrhea, fecal incontinence, abd pain, nausea, presents for EGD/colonoscopy. Super morbid Obesisty - BMI 55.9 Asthma - only w/ allergies, no symbicort since last fall AJITH - no CPAP HTN HLD IDDM2 - w/ peripheral neuropathy, FBS 162(pt states that is good for her) Fibromyalgia Depression Hypothyroid Allergic rhinitis Migraine HAs Hx TBI 2008 Non-smoker No URi Denies GERD, But has lots of gas/belching Hx slow emergence from GA Allergies: LATEX, amlodipine, imitrex, lyrica, metformin, prozac, sulfa, tramadol Wt: 147.4 kg S/p BSO 01/2012 NPO:solids 02/05, liquids 0330(H2O) Code: Full 02/10/15 WBC 9.7, H/H 15.2/44.7, plts 228 01/27/15 Cr 0.71, eGFR greater than 60 Plan MAC/GA - propofol, std ASA monitors, adequate IV access Region - Other Informed Consent: Anesthetic plan and risks discussed with patient. Use of blood products discussed with patient whom consented to blood products. Plan discussed with [employer]. [facility] Assessment: documented in this encounter Plan of Treatment Not on filedocumented as of this encounter Visit Diagnoses Not on filedocumented in this encounter Administered Medications Inactive Administered Medications - up to 3 most recent administrations Medication Order MAR Action Action Date Dose Rate Site lactated ringers infusion New Bag 04/09/2015 8:56 AM EDT CONTINUOUS PRN, Starting on Arlen 04/09/15 at 0856, Until Arlen 04/09/15 at 1014, Anesthesia Intra-op lidocaine (PF) (XYLOCAINE) 100 mg/5 mL (2 %) Given 5 8:58 AM EDT 20 mg injection PRN, Starting on Arlen 04/09/15 at 0858, Until Arlen 04/09/15 at 1014, Anesthesia Intra-op, Routine PHENYLephrine HCl in NS (PF) (JONEL-SYNEPHRINE) Given 9:58 AM EDT 80 mcg 0.8 mg/10 mL (80 mcg/mL) multi-dose injection Syrg PRN, Starting on Arlen 04/09/15 at 0953, Until Arlen 04/09/15 at 1014, Anesthesia Intra-op, Routine Given 04/09/2015 9:53 AM EDT 80 mcg propofol (DIPRIVAN) 10 mg/mL bolus injection Given 5 8:58 AM EDT 50 mg (Anesthesia) PRN, Starting on Arlen 04/09/15 at 0858, Until Arlen 04/09/15 at 1014, Anesthesia Intra-op propofol (DIPRIVAN) Rate/Dose 04/09/2015 9:52 100 mcg/kg/min 88.2 mL /hr infusion Change AM EDT CONTINUOUS PRN, Starting on Arlen 04/09/15 at 0858, Until Arlen 04/09/15 at 1014, Anesthesia Intra-op, Routine Rate/Dose Change 04/09/2015 9:20 AM EDT 150 mcg/kg/min 132.3 mL/hr New Bag 04/09/2015 8:58 AM EDT 200 mcg/kg/min 176.4 mL/hr documented in this encounter Care Teams Tong[employer] And [employer] Stitcher Relationship Specialty Start Date End Date Zhanna Francois APRN PCP - General 01/27/15 05/15/19 documented as of this encounter
--- OUTSIDE RECORDS SUMMARY | 2022-09-16 12:30 | XMS_ITS | Encounter Summary ---
:1965 Author Organization [facility] [place] [address] Care Team Providers Name Role Phone Sirena Rossi JESSE Primary Care Provider Encounter Details Date Type Department Care Team Description 01/23/2012 Surgery Main Operating Room Juan Manuel Simons MD LAPAROSCOPY, REMOVAL OF [facility] ADNEX (WRVU 11.35) [facility] GYNECOLOGY ON [place] [id number] [place] [address] [phone] Social History Tobacco Use Types Packs/Day Years Used Date Smoking Tobacco: Never Smokeless Tobacco: Never Alcohol Use Standard Drinks/Week Comments No 0 (1 standard drink = 0.6 oz pure alcoho l) Sex Assigned at Date Recorded Not on file documented as of this encounter Last Filed Vital Signs Vital Sign Reading Time Taken Comments Blood Pressure 98/50 01/24/2012 7:00 AM EDT Pulse 77 01/24/2012 7:00 AM EDT Temperature 37.1 ??C (98.8 ??F) 01/24/2012 7:00 AM EDT Respiratory Rate 16 01/24/2012 7:00 AM EDT Oxygen Saturation 92% 01/24/2012 7:00 AM EDT Inhaled Oxygen Concentration - - Weight 146.1 kg (322 lb) 01/23/2012 6:43 AM EDT Height 162.6 cm (5' 4) 01/23/2012 6:43 AM EDT Body Mass Index 55.27 01/23/2012 6:43 AM EDT documented in this encounter Discharge Instructions Discharge InstructionsKathi Nick RN - 01/23/2012 10:50 AM EDT POST ANESTHESIA INSTRUCTIONS Go home, rest, use caution on stairs. Change positions slowly. Do not smoke if you are alone. Diet light to regular as tolerated today. If nausea occurs start with clear liquids and progress slowly. No driving, operating machinery, alcoholic beverages and no important decisions for 24 hours. Monitor IV site for signs and symptoms of infection: increasing redness, swelling, foul drainage, ifoccurs contact M.D. Patients who have had endotrachial tubes (this tube, used by anesthesia department, is passed down your throat after you are asleep, to ensure safe air passage during your operation). A sore throat is normal due to the tube. Cold liquids or soothing lozenges will help ease the discomfort. The generalized muscle aches are due to the medication given to you just before the tube is inserted. As the medication wears off, you may develop muscle soreness, which usually goes away in 12-24 hours. Patient InstructionsKorina Kothari MD - 01/23/2012 10:20 AM EDT PATIENT DISCHARGE INSTRUCTIONS Call your doctor if you develop: ?? A fever over 101 degrees ?? Severe pain that does not get better after you take pain medicine. ?? Heavy vaginal bleeding (bright red bleeding that soaks 1 or more pads each hours x 2 or more hours or passing blood clots that are larger than a golf ball) ?? Vaginal discharge that smells bad ?? Increasing pain, redness, or discharge Activity level: ?? Most women are able to return to work within a week of the procedure. ?? You may have some light vaginal bleeding. Wear sanitary pads if needed. Do not douche or use tampons for 2 weeks or until your doctor says it is okay. Diet: ?? You can eat your normal diet. If your stomach is upset, try bland, low-fat foods like plain rice,broiled chicken, toast, and yogurt. ?? Drink plenty of fluids (unless your doctor tells you not to). Medications: ?? Ibuprofen 600mg by mouth every 6 hours as needed for cramping ?? If the doctor gave you a prescription medicine for pain, take it as prescribed. ?? If you are not taking a prescription pain medicine, ask your doctor if you can take an nadi-tlr-yugfjxv medicine. ?? Do not take two or more pain medicines at the same time unless the doctor told you to. Many pain medicines have acetaminophen, which is Tylenol. Too much acetaminophen (Tylenol) can be harmful. ?? If you think your pain medicine is making you sick to your stomach: ?? Take your medicine after meals (unless your doctor has told you not to). ?? Ask your doctor for a different pain medicine. Driving: ?? Do not drive until you are off of all narcotic medications and you are not feeling pain. Shower/Bath: ?? Showering is fine. Follow-up care is a gregory part of your treatment and safety. Be sure to make and go to all appointments, and call your doctor if you are having problems. It???s also a good idea to know your test resultsand keep a list of the medicines you take. Please retake blood pressure at home and do not start blood pressure medicines until it is at least 130/70. AttachmentsThe following attachments cannot be sent through Care Everywhere. LAPAROSCOPY: WHAT TO EXPECT AT HOME (AFGHAN)documented in this encounter Medications at Time of [...] documented as of this encounter Progress Notes Ginny Sloan RN - 01/24/2012 9:52 AM EDT The patient has met discharge criteria per policy. Discharge instruction reviewed and patient discharged to responsible adult. Patient???s pain level has been assessed and patient states that his/her level is tolerable at this time. The After Visit Summary (AVS) and accompanying hand-outs have been reviewed with the patient; the patient verbalizes understanding at this time. Opportunity for clarification provided. All new medications have been reviewed with the patient and the appropriate hand-outs have been given to the patient. Reportable sign and symptoms have been reviewed with patient./c Juan Manuel Simons MD - 01/24/2012 6:21 AM EDT Inpatient Gynecological Oncology - Progress Note Admit Date: 01/23/2012 Hospital Day 1 day Problem List: There are no hospital problems to display for this patient. There are no active non-hospital problems to display for this patient. 24 Hour Events: On CPAP overnight. Subjective: Reports pain was better controlled after increased oxycodone. No nausea or vomiting. No flatus. Tolerating diet. Ambulating without difficulty - reports some decrease in O2 sat when ambulated. Voiding with hesitancy. Physical Exam: Last value Range last 24 hrs Temperature Temp: 37.8 ??C (100 ??F) Temp: [35.8 ??C (96.4 ??F)-38.2 ??C (100.8 ??F)] Heart Rate Heart Rate: 82 Heart Rate: [62-88] Blood Pressure BP: 102/46 mmHg BP: (82-129)/(30-55) Respiratory Rate Resp: 16 Resp: [14-24] SpO2 SpO2: 95 % SpO2: [91 %-98 %] Intake/Output Summary (Last 24 hours) at 01/24/12 0622 Last data filed at 01/24/12 0400 Gross per 24 hour Intake 4348 ml Output 1750 ml Net 2598 ml Physical Exam Gen: Comfortable with NC in place CV: RRR, no murmurs/rubs/gallops Lungs: CTA bilaterally Abd: Obese, non-distended. Soft, appropriately tender. + bowel sounds. Laparoscopic port sites intact without drainage or erythema. Laboratory (Last 24 Hours): Recent Results (from the past 24 hour(s)) POCT GLUCOSE LAB USE ONLY Component Value Range ??? POC Glucose 144 60 - 199 (mg/dL) POCT GLUCOSE LAB USE ONLY Component Value Range ??? POC Glucose 172 60 - 199 (mg/dL) POCT GLUCOSE LAB USE ONLY Component Value Range ??? POC Glucose 200 (*) 60 - 199 (mg/dL) POCT GLUCOSE LAB USE ONLY Component Value Range ??? POC Glucose 158 60 - 199 (mg/dL) POCT GLUCOSE LAB USE ONLY Component Value Range ??? POC Glucose 191 60 - 199 (mg/dL) Microbiology: none Assessment: Ruth Perez is a 46 yo female who is POD#1 s/p laparoscopic BSO for a 10 cm left paratubal simple cyst. The plan had been for same-day surgery, but in post-op she had lower blood pressures and decreased O2 sats. The decision was made to keep her for 23 hour observation. Her O2 sats improved overnight while on CPAP and with nebulizer/inhaler last night. Pain is in better control. BPs have improved - butstill holding anti-hypertensives. Plan: 1. Cardiovascular: Decreased BPs immediately post-op. Improved now. Will hold anti-hypertensive until patient home and can recheck BP. 2. Pulmonary: Known sleep apnea. O2 sat 92-95% with CPAP. 3. FEK/: Good urine output. 4. Nutrition/GI: Continue regular diet. 5. ID: Afebrile. 6. Heme: H/H stable 7. Endo: DM2 - on sliding scale. May resume home insulin dosing upon discharge. 8. Prophylaxis: SCDs while in bed 9. Code Status: FULL CODE 10. Disposition: Discharge this morning. KORINA KOTHARI MD 01/24/2012 I saw and evaluated the patient with Dr. Kothari, and I confirmed the history and physical findingsas outlined, and I agree with the note as written. Leydi Min - 01/24/2012 4:25 AM EDT Received pt at 2300h- alert and oriented to all ernst with good, equal strength to all extrem's. Resps even and unlabored with shallow, clear bs to all lung ernst. Cardiac = +s1s2 with no extra heartsounds or murmurs. Abd obese, bs + x4/4, nondistended, tender to lap sites. No periph edema. PPP x4/4. Pt ambulating well without assist. Voiding in BR. Bladder scan post- void= 122mL. Juan Manuel Simons MD - 01/23/2012 8:37 PM EDT Post-Operative Check Note - Inpatient Gynecology Oncology Ruth Galeana is a 46yo female POD#0 s/p laparoscopic BSO. S: Ms Galeana reports 9/10 abdominal pain currently, which has been hard to control with pain medication. She just received 10mg oxycodone. Has tolerated some PO without nausea/vomiting. Has not yet passed flatus or had a BM. Denies CP/SOB/f/c. Was ambulatory to the bathroom which increased her abdominal pain. O: Last value Range last 24 hrs Temperature Temp: 36.9 ??C (98.4 ??F) Temp: [35.8 ??C (96.4 ??F)-37.2 ??C (99 ??F)] Heart Rate Heart Rate: 77 Heart Rate: [62-77] Blood Pressure BP: 105/32 mmHg BP: (82-129)/(30-55) Respiratory Rate Resp: 16 Resp: [14-24] SpO2 SpO2: 96 % SpO2: [91 %-97 %] I/O last 1 completed shift: In: 3808 [P.O.:1858; I.V.:1950] Out: 200 [Urine:175; Blood:25] EXAM: General: a&ox3, lying in bed Heart: RRR, normal s1 s2 Lungs: Nasal Cannula in place, CTAB, moderate aeration throughout, no wheezes/crackles Abdomen: BS light, soft, non-distended, no guarding, moderately tender to palpation throughout, incision sites hemostatic, lidocaine patches in place Vascular: 2+ pitting LE swelling A/P: Ruth Galeana is a 46yo female POD#0 s/p laparoscopic BSO, now in stable condition. Neuro: Pain is currently not well controlled. Oxycodone increased to 10mg [id number]. Respiratory: CPAP overnight, 3L NC in place, sating well. Heme/Cardiac: HR, BP within normal limits Fen/GI: Regular diet, advance as tolerated : Voiding spontaneously. Dispo: Continue post-operative care LITZY LYNCHALEXSANDER 01/23/2012 Noted. Kathi Nick RN - 01/23/2012 1:46 PM EDT 1105 - Resp called to set up CPAP for patient. 1125 - respiratory therapist here, states there was water in cpap chamber of patient's own unit. Shecalled [facility] to assess if pt's machine functioning. 1143 - Dr. Oneill called regarding low BP, and O2 sats. Iv infusing well. 1200 - noted mod amt of bloody drge from right abd site, dressing applied to area. 1220 - T/C - Dr. Kothari regarding moderate amt of bloody drainage from right lower abdominal site.1225 - Dr. Kothari in to evaluate - pressure applied to site, dermabond reinforced by MD. Dr. Oneill in - aware of low BP readings, will continue to monitor. 1345 - T/C to Dr. Martines to question admitting patient. Patient instructed regarding use of incentive spirometer. Dr. Oneill in to re assess patient 1400 - Dr. Kothari in to reassess patient , agrees of need to admit patient to the 23 hour observation unit. 1440 [facility] rep here, new cpap machine for use provided for patient. 1500 portable chest x ray done as ordered, 1515 - Dr. Simons and Jose in to see patient 1540 - patient was assisted to bathroom - was able to urinate moderate amount, patient states feel she emptied her bladder. Small amt vaginal drge noted, divine pad placed. O2 sat upon arrival back to bed was 84-85%, Oxygen replaced at 3l via n/c. 1615 - report called to Mohamud LEWIS in SSU 1623 - patient transferred to room SSU18 via stretcher Rafaela Delatorre RT - 01/23/2012 11:35 AM EDT I was paged to [facility] by nursing (Ace) to assist with set up of Ms. Galeana's home CPAP unit while she was in recovery area. Upon removing her machine from her bag I noted that patient had water in the chamber of the unit. I set the machine up on the table and turned it on and it initially worked withoutincident. I turned the machine off to insert an adapter to bleed-in O2 as Ms. Galeana still required alittle O2 support. At that point her machine stopped working and had an error message of [id number] in the display. I attempted to unplug to reset the machine and was unsuccessful with this so [facility] was contacted (Charmaine Mims). Ms. Galeana's nurse was advised of this information and I suggested we could place patient on one of our machines if needed. documented in this encounter H&P Notes Juan Manuel Simons MD - 01/23/2012 7:07 AM EDT Inpatient CIRCULATION LIBRARIAN - Admission Interval Note I have reviewed the pre-procedure H&P completed by Dr. Simons on 01/13/2012. (X) Condition unchanged since H&P originally performed. OR () Condition changed since H&P originally performed. See interval note below. Interval Note: No changes A copy of this document will be sent to the patient's Primary Care Physician and/or Referring Physician. KORINA KOTHARI MD 01/23/2012 Staff Addendum: I saw and evaluated the patient with Dr. Kothari (financial aid resident). I independentlyconfirmed the resident's history and physical findings, and I reviewed the pertinent data. The assessment and plan were formulated in discussion with me, as outlined in the above note, and I agree withthe note as written. Juan Manuel Simons MD documented in this encounter Miscellaneous Notes Miscellaneous - Provider, Scanning - 01/25/2012 11:18 AM EDT Discharge Summary - Korina Kothari MD - 01/24/2012 6:32 AM EDT Inpatient CIRCULATION LIBRARIAN - Discharge Summary Patient Name: Ruth Galeana Patient Age: 46 y.o. Birthdate: 1965 Admit date: 01/23/2012 Discharge date and time: 01/24/2012 Attending Physician: Juan Manuel Simons MD Discharge Diagnoses (Hospital Problems) and Secondary Diagnoses (Chronic Problems): Active Hospital Problems Diagnoses ??? Paratubal cyst ??? Sleep apnea ??? Morbid obesity ??? Diabetes mellitus Insulin requiring ??? Fibromyalgia Resolved Hospital Problems Diagnoses Date Resolved Operations/Major Procedures: Operations: LAPAROSCOPY, REMOVAL OF ADNEXA History of Presentation: This is a 46-year-old woman with a 10 cm left ovarian cyst. It has a simple appearance on both imaging studies. It may or may not be associated with her left lower quadrant pain, and I reviewed this with today. However, do feel that it warrants surgical removal for for both therapeutic and diagnostic purposes. Ruth is counseled on her diagnoses, the surgical plan, which is for laparoscopic bilateral salpingo-oophorectomy, and she specifically requests that both ovaries be removed. She is sent for routine preoperative testing today, and we'll obtain her EKG from her primary care provider. She is evaluated by anesthesia today. She is instructed to bring her CPAP machine with her to the hospital. Her surgery scheduled for 01/23/2012. Hospital Course: Patient was taken to same day after procedure. She was noted to have continued O2 requirements and low BPs. The decision was made to keep her for 23 hour observation. She was taken to the short-stay unit. Her pain was tolerable. O2 sat improved with CPAP. Tolerating regular diet and voiding without issue. Important Studies and Lab Data: Labs: Recent Results (from the past 72 hour(s)) POCT GLUCOSE LAB USE ONLY Component Value Range ??? POC Glucose 144 60 - 199 (mg/dL) POCT GLUCOSE LAB USE ONLY Component Value Range ??? POC Glucose 172 60 - 199 (mg/dL) POCT GLUCOSE LAB USE ONLY Component Value Range ??? POC Glucose 200 (*) 60 - 199 (mg/dL) POCT GLUCOSE LAB USE ONLY Component Value Range ??? POC Glucose 158 60 - 199 (mg/dL) POCT GLUCOSE LAB USE ONLY Component Value Range ??? POC Glucose 191 60 - 199 (mg/dL) Studies: CXR (01/23/2012): IMPRESSION: Low lung volumes with basilar atelectasis. No other cardiopulmonary findings. Pending Studies and Lab Data: Final pathology Discharge Conditions/Prognosis: stable Discharge to: Home Discharge Medications: Current Discharge Medication List New Meds Dose Details ibuprofen (ADVIL;MOTRIN) 600 mg 600 mg Take 600 mg by mouth every 6 hours. Qty: 30 tablet Refills: 0 OXYcodone-acetaminophen (PERCOCET) 1 tablet 1 tablet Take 1 tablet by mouth every 4 hours as neededfor Pain. Qty: 30 tablet Refills: 0 Continued medications, unchanged Dose Details OXYcodone (ROXICODONE) 10 mg 10 mg Take 10 mg by mouth every 4 hours as needed. Qty: Refills: pravastatin (PRAVACHOL) 80 mg 80 mg Take 80 mg by mouth daily. Qty: Refills: furosemide (LASIX) 20 mg 20 mg Take 20 mg by mouth daily. Qty: Refills: sertraline (ZOLOFT) 200 mg 200 mg Take 200 mg by mouth daily. Qty: Refills: insulin glargine (LANTUS) 60 Units 60 Units Inject 60 Units subcutaneously 2 times daily. Qty: Refills: Budesonide-Formoterol (SYMBICORT) 160-4.5 mcg/Actuation HFAA Inhale into the lungs as needed. Qty: Refills: insulin aspart (NOVOLOG KANIKA) 100 unit/mL pen cartridge Inject subcutaneously 3 times daily (withmeals). Sliding scale Qty: Refills: cetirizine (ZYRTEC) 10 mg 10 mg Take 10 mg by mouth daily. Qty: Refills: lisinopril (PRINIVIL;ZESTRIL) 20 mg 20 mg Take 20 mg by mouth daily. Qty: Refills: lidocaine (LIDODERM) [address] 3 patches onto the skin every 12 hours. Qty: Refills: ipratropium-albuterol (DUONEB) 3 mLs 3 mLs Take 3 mLs by nebulization every 4 hours as needed. Qty: Refills: atenolol (TENORMIN) 50 mg tablet 75MG = 1 1/2 Tablet(s), PO, Once daily Qty: Refills: levothyroxine (SYNTHROID) 112 mcg tablet 224MCG = 2 Tablet(s), PO, Once daily Qty: Refills: CALCIUM CARBONATE (TUMS ORAL) Qty: Refills: Updated Allergies/ADRs: Allergies Allergen Reactions ??? Latex Rash ??? Sulfa (Sulfonamide Antibiotics) ??? Prozac (Fluoxetine) Anxiety ??? Tramadol Anxiety ??? Metformin Diarrhea ??? Lyrica (Pregabalin) Other (See Comments) Intolerance ??? Amlodipine Other (See Comments) Suicidal thoughts ??? Imitrex (Sumatriptan Succinate) Suicidal thoughts Follow-up Recommendations for Providers: none Instructions Given to Patient at Discharge: Provider Instructions PATIENT DISCHARGE INSTRUCTIONS Call your doctor if you develop: ?? A fever over 101 degrees ?? Severe pain that does not get better after you take pain medicine. ?? Heavy vaginal bleeding (bright red bleeding that soaks 1 or more pads each hours x 2 or more hours or passing blood clots that are larger than a golf ball) ?? Vaginal discharge that smells bad ?? Increasing pain, redness, or discharge Activity level: ?? Most women are able to return to work within a week of the procedure. ?? You may have some light vaginal bleeding. Wear sanitary pads if needed. Do not douche or use tampons for 2 weeks or until your doctor says it is okay. Diet: ?? You can eat your normal diet. If your stomach is upset, try bland, low-fat foods like plain rice,broiled chicken, toast, and yogurt. ?? Drink plenty of fluids (unless your doctor tells you not to). Medications: ?? Ibuprofen 600mg by mouth every 6 hours as needed for cramping ?? If the doctor gave you a prescription medicine for pain, take it as prescribed. ?? If you are not taking a prescription pain medicine, ask your doctor if you can take an jrtj-mye-doqaepy medicine. ?? Do not take two or more pain medicines at the same time unless the doctor told you to. Many pain medicines have acetaminophen, which is Tylenol. Too much acetaminophen (Tylenol) can be harmful. ?? If you think your pain medicine is making you sick to your stomach: ?? Take your medicine after meals (unless your doctor has told you not to). ?? Ask your doctor for a different pain medicine. Driving: ?? Do not drive until you are off of all narcotic medications and you are not feeling pain. Shower/Bath: ?? Showering is fine. Follow-up care is a gregory part of your treatment and safety. Be sure to make and go to all appointments, and call your doctor if you are having problems. It???s also a good idea to know your test resultsand keep a list of the medicines you take. Please retake blood pressure at home and do not start blood pressure medicines until it is at least 130/70. General Instructions POST ANESTHESIA INSTRUCTIONS Go home, rest, use caution on stairs. Change positions slowly. Do not smoke if you are alone. Diet light to regular as tolerated today. If nausea occurs start with clear liquids and progress slowly. No driving, operating machinery, alcoholic beverages and no important decisions for 24 hours. Monitor IV site for signs and symptoms of infection: increasing redness, swelling, foul drainage, ifoccurs contact M.D. Patients who have had endotrachial tubes (this tube, used by anesthesia department, is passed down your throat after you are asleep, to ensure safe air passage during your operation). A sore throat is normal due to the tube. Cold liquids or soothing lozenges will help ease the discomfort. The generalized muscle aches are due to the medication given to you just before the tube is inserted. As the medication wears off, you may develop muscle soreness, which usually goes away in 12-24 hours. Future Appointments and Orders Future Orders Please Complete By Expires Discontinue [[id number] Custom] Process Instructions: Scheduling Instructions: Comments: IV or saline lock when patient discharged. Questions: Responses: Provider Contact Information: SIRENA Del Valle MELISSA, JESSE [phone] Discharge References/Attachments: Discharge References/Attachments None Signed: KORINA KOTHARI MD 01/24/2012 Op Note - Juan Manuel Simons MD - 01/23/2012 5:24 PM EDT Case Date: 01/23/2012 Surgeon: Surgeon(s) and Role: * JUAN MANUEL SIMONS MD - Primary * KORINA KOTHARI MD - Resident-Surgeon Kanika Preoperative diagnosis: OVARIAN CYST Postoperative diagnosis: OVARIAN CYSTS, Bilateral Procedure(s): 1. LAPAROSCOPY, REMOVAL OF ADNEXA (BSO) Anesthesia: General Estimated Blood Loss: 25 mL. Anesthesia: General endotracheal. Specimens 1. fallopian tubes, and ovaries. Drains: Klein catheter. Urine Output: 125 mL. Estimated Blood Loss: 50 mL. IV Fluid: 1500 mL of crystalloid. Indication for surgery: This is a 46 y/o woman who was referred by Claribel Petit M.D.. for a 10 cm left ovarian cyst. She was counseled on the diagnosis, surgical plan and goals, alternatives and risks.She wished to proceed with surgery, including request for bilateral salpingo-oophorectomy, and written consent was obtained. Findings 1. Exam under anesthesia: Normal sized uterus with an IUD string noted in the cervix. 2. Laparoscopy: Normal upper abdomen, except for fatty liver. No evidence of extrauterine disease, carcinomatosis, or ascites. The ovaries were grossly normal, although the left fallopian tube was involved with a 10 cm paratubal cyst. The right ovary also had a few small cysts, and was densely adherent to the right aspect of the uterus, and adhesions of the sigmoid colon epiploica were against it. The uterus itself appeared grossly normal. 3. Frozen section: None. Procedure in Detail: The patient was identified and consent was reaffirmed. She was taken to the operating room and placed in low lithotomy position with stirrups after induction of anesthesia. An exam was conducted and the findings are discussed above. An antiseptic preparation of the abdomen, perineum, and vagina was performed and the patient was sterilely draped. A Klein catheter was inserted into the bladder. A surgical pause was performed, correctly identifying the intended procedures, for this patient. A Hulka tenaculum was placed in the cervix for manipulation of the uterus. A 10 mm vertical infraumbilical incision was made, through which was placed a 12 mm Optiview trocar under direct visualization. The abdomen was entered without difficulty. Secondary ports were placed, 5 mm each, 2 on the right side, and one in the left side under direct visualization. Using sharp and electrosurgical dissection, adhesions of the omentum to the anterior abdominal wall were taken down with the LigaSure device. Attention was turned to the left side, where the 10 cm paratubal cyst was dissected from the ovary and later collected. The left ovarian vessels were then identified, desiccated and divided, followed by division of the fallopian tube and utero-ovarian ligament with the LigaSure device, to complete a left salpingo-oophorectomy. Attention was turned to the right side, where in a similar fashion, the right ovarian vessels were identified, desiccated and divided, followed by desiccation of the right fallopian tube and ovary, and right utero-ovarian ligament. The right ovary was densely here to the posterior uterus, and this was taken down with sharp and electrosurgical dissection, and dense adhesions of the sigmoid epiploica were taken off the ovarian mass as well. This completed the RSO. A 15 mm Endo catch bag was inserted, and the large left paratubal cyst was collected, and brought out through the umbilical incision, after evacuation of its fluid. It was opened off the field, and Andfound to contain a smooth cystic wall, indicating a benign pathology. Frozen section was not obtained. Similarly, the left and right fallopian tubes and ovaries were retrieved the bags and brought out and sent for permanent pathology. The abdomen and pelvis were then inspected, and found to be hemostatic. There was a slight amount of bleeding from the infraumbilical incision, and this was managed by placing 8-0 Vicryl with a Bennie[place] ligature passer. Hemostasis was excellent following this, and the remaining skin incisions were closed with Vicryl, and Dermabond was applied. The patient was returned to a supine position as anesthesia was discontinued. She was then extubated and taken to the PACU in stable condition, and accompanied by the anesthesiologist and surgeons. Dr. Juan Manuel Simons, the attending physician, was present for the entire procedure. Counts: Sharp and sponge counts were correct x two. No surgical instrument counts were performed as per [facility] OR policy. Complications: None. Antibiotics: 2 gm (s) cefazolin at induction of anesthesia. DVT Prophylaxis: 5000 units of heparin subcutaneously and SCDs continuously applied to the lower extremities. Miscellaneous - Provider, Scanning - 01/23/2012 2:09 PM EDT OR Attestation - Juan Manuel Simons MD - 01/23/2012 10:09 AM EDT Attestation: Case Date: 01/23/2012 I was present and I participated during the entire procedure (does not need to include opening and closing). JUAN MANUEL SIMONS MD 01/23/2012 Brief Op Note - Juan Manuel Simons MD - 01/23/2012 10:08 AM EDT Brief Operative Note Patient Name: Ruth Galeana : [id number] MR#: [id number] Case Date: 01/23/2012 Surgeon: Surgeon(s) and Role: * JUAN MANUEL SIMONS MD - Primary * KORINA KOTHARI MD - Resident-Surgeon Kanika Preoperative diagnosis: OVARIAN CYST Postoperative diagnosis: OVARIAN CYSTS, Bilateral Procedure(s): 1. LAPAROSCOPY, REMOVAL OF ADNEXA (BSO) Anesthesia: General Estimated Blood Loss: 25 mL. Drains: none. Disposition: awakened from anesthesia, extubated and taken to the recovery room in a stable condition, having suffered no apparent untoward event. Condition: doing well without problems (Please see the Surgical Encounter Summary for any Implant and Specimen details pertinent to this patient.) documented in this encounter Plan of Treatment Not on filedocumented as of this encounter Procedures Procedure Name Priority Date/Time Associated Diagnosis Comme nts POCT GLUCOSE Routine 01/24/2012 8:03 AM Results f or this EDT procedure are i n the results section. POCT GLUCOSE Routine 01/23/2012 10:14 PM Results for this EDT procedure are i n the results section. POCT GLUCOSE Routine 01/23/2012 5:59 PM Results f or this EDT procedure are i n the results section. POCT GLUCOSE Routine 01/23/2012 4:45 PM Results f or this EDT procedure are i n the results section. XR CHEST ONE VIEW Routine 01/23/2012 3:03 PM Resu lts for this EDT procedure are i n the results section. POCT GLUCOSE Routine 01/23/2012 10:44 AM Results for this EDT procedure are i n the results section. SURGICAL PATHOLOGY Routine 01/23/2012 9:51 AM Res ults for this REPORT EDT procedure are i n the results section. SPECIMEN TO Routine 01/23/2012 9:31 AM Results f or this PATHOLOGY EDT procedure are i n the results section. SPECIMEN TO Routine 01/23/2012 9:21 AM Results f or this PATHOLOGY EDT procedure are i n the results section. LAPAROSCOPY, 01/23/2012 7:20 AM OVARIAN CYST REMOVAL OF ADNEXA EDT (WRVU 11.35) POCT GLUCOSE Routine 01/23/2012 6:58 AM Results f or this EDT procedure are i n the results section. documented in this encounter Results (ABNORMAL) POCT GLUCOSE LAB USE ONLY (01/24/2012 8:03 AM EDT) athologist Signature POC Glucose 227 (H) 60 - 199 CERNER mg/dL [facility] Comment: Supplemental ranges: <110 mg/dL before meals <200 mg/dL all other times of the day Specimen Anatomical Collection Method Collection Time Receive d Time (Source) Location / / Volume Laterality Blood specimen 01/24/2012 8:03 AM 012 8:03 (specimen) EDT AM EDT Juan Manuel Simons MD POINT OF CARE TEST ORDERABLE S Performing Organization Address City/[facility]/ZIP Code Phon e Number [address] CERNER [facility] POCT GLUCOSE LAB USE ONLY (01/23/2012 10:14 PM EDT) athologist Signature POC Glucose 191 60 - 199 [facility] Comment: Supplemental ranges: <110 mg/dL before meals <200 mg/dL all other times of the day Specimen Anatomical Collection Method Collection Time Receive d Time (Source) Location / / Volume Laterality Blood specimen 01/23/2012 10:14 2 (specimen) PM EDT 10:14 PM EDT Juan Manuel Simons MD POINT OF CARE TEST ORDERABLE S Performing Organization Address City/State/ZIP [place] [address] CERNER M[facility]ENNIUM POCT GLUCOSE LAB USE ONLY (01/23/2012 5:59 PM EDT) athologist Signature POC Glucose 158 60 - 199 CERNER mg/dL [facility] Comment: Supplemental ranges: <110 mg/dL before meals <200 mg/dL all other times of the day Specimen Anatomical Collection Method Collection Time Receive d Time (Source) Location / / Volume Laterality Blood specimen 01/23/2012 5:59 PM 012 5:59 (specimen) EDT PM EDT Juan Manuel Simons MD POINT OF CARE TEST ORDERABLE S Performing Organization Address City/[facility]/ZIP Code Phon e Number [address] CERNER MILLENNIUM (ABNORMAL) POCT GLUCOSE LAB USE ONLY (01/23/2012 4:45 PM EDT) athologist Signature POC Glucose 200 (H) 60 - 199 CERNER mg/dL [facility] Comment: Supplemental ranges: <110 mg/dL before meals <200 mg/dL all other times of the day Specimen Anatomical Collection Method Collection Time Receive d Time (Source) Location / / Volume Laterality Blood specimen 01/23/2012 4:45 PM 012 4:45 (specimen) EDT PM EDT Juan Manuel Simons MD POINT OF CARE TEST ORDERABLE S Performing Organization Address City/[facility] [place] [address] CERNER [facility] XR CHEST PA OR AP- 1 VIEW (01/23/2012 3:03 PM EDT) Anatomical Region Laterality Modality Chest N/A Radiographic Imaging Specimen (Source) Anatomical Collection Method Collection Time Re ceived Time Location / / Volume Laterality 01/23/2012 3:03 PM EDT Impressions 01/24/2012 5:36 PM EDT IMPRESSION: ?? Low lung volumes with basilar atelectasi s. ??No other cardiopulmonary findings. Narrative 01/24/2012 5:36 PM EDT PORTABLE CHEST: ?? INDICATION: ??Low oxygen sats postop. ?? TECHNIQUE: ??Single frontal view of the chest. ?? COMPARISON: ??No priors for comparison. ?? FINDINGS: ??Lung volumes are low consist ent with shallow inspiration. ??Thus, triangular retrocardiac opacity appears consistent with some lower lobe atelectasis. ??Otherwise, the lungs appe ar clear. ??Cardiomediastinal silhouette, moo, and pulmonary vessels within carmelo l limits for an AP semiupright projection. ?? Procedure Note Tisha Corrigan MD - 01/24/2012Formatt ing of this note might be different from the original. PORTABLE CHEST: INDICATION: Low oxygen sats postop. TECHNIQUE: Single frontal view of the est. COMPARISON: No priors for comparison. FINDINGS: Lung volumes are low consisten t with shallow inspiration. Thus, triangular retrocardiac opacity appears consistent with some lower lobe atelectasis. Otherwise, the lungs appear clear. Cardiomediastinal silhouette, moo, and pulmonary vessels within carmelo l limits for an AP semiupright projection. IMPRESSION IMPRESSION: Low lung volumes with basilar atelectasi s. No other cardiopulmonary findings. Korina Kothari MD IMG DX ORDERABLES POCT GLUCOSE LAB USE ONLY (01/23/2012 10:44 AM EDT) athologist Signature POC Glucose 172 60 - 199 CERNER mg/dL [facility] Comment: Supplemental ranges: <110 mg/dL before meals <200 mg/dL all other times of the day Specimen Anatomical Collection Method Collection Time Receive d Time (Source) Location / / Volume Laterality Blood specimen 01/23/2012 10:44 2 (specimen) AM EDT 10:44 AM EDT Juan Manuel Simons MD POINT OF CARE TEST ORDERABLE S Performing Organization Address City/State/[place] [address] [facility] REPORT (01/23/2012 9:51 AM EDT) Component Value Ref Test Analysis Performed At [facility] gist Range Method Time Signature Surgical CERNER Pathology ? [facility] Report ? Provider: ?? JUAN MANUEL SIMONS ?Pt. Name: ?? ROGELIO PEREZ RUTH PEREZ ? Acc #: ?[id number] ?Pt. MRN: ?[id number] ? Col Date: ?? 01/23/2012 ?/Sex: ?1965,(46 years),Female ? Rec Date: ?? 01/23/2012 ?LOC: ?[facility] ? SURGICAL PATHOLOGY ? ---Pathologic Diagnosis--- ? A - Left fallopian tu be, ovary, and paratubal cyst, salpingo-oophrectomy: ? 1 - Serous cystadenoma, ovary. ? 2 - Paratubal cyst. ? 3 - Luteinized follicle cyst, ovary. ? 4 - Benign fallopian tube. ? B - Right fallopian tube and ovary, salpingo-oophrect shmuel: ? 1 - Benign ovary with inclusion cysts. ? 2 - Benign fallopian tube. ? CR-0 ? 01/25/12 ? ARS ? 01/25/12 Verified by: ? John KANG, Toni Beebe ? Pathologist ? (Electronic Si gnature) ? The attending pathologist whose signature appears o n this report has ? reviewed all diagnostic slides and has edited the evita ss and/or ? microscopic portion of the report in rendering the fi nal pathologic ? diagnosis. ? ---Microscopic Description--- ? Slides reviewed, microscopic description not recorded . ? ---Gross Description--- ? A - Labeled/Fixative: Left tube and ovary and parat ubal cyst, fresh. ? Qty/Size/Weight: ?Two, 7.0 x 6.0 x 2.0 cm and 4.5 x 3.5 x 1.0 cm. ? Tissue Description: ?? Segment of fallopian tube with attached adjacent ? cysts and ovarian ti ssue. ?Surface: ? The external surface of the ovary is mak- yellow and ? cerebriform. ?Tumor: ? Adjacent to the segment of separately submitted ? fallopian tube there is a large cyst enzo uring approximately 7.0 cm in ? greatest dimension. ? ?The cyst has previously been opened and is lined by a ? mak-pink, wrinkled lining. ??No s olid areas or areas of excrescence are ? identified. ?Parenchyma: ?Ovarian parenchyma reveals scattered follicular cysts ? but is otherwise unr emarkable. ?Fallopian Tube: ?Mak-pin k, tortuous, and grossly unremarkable. ? Sections/Processing: ??(1) member service representative fallopian t ube; (2-3) ? [facility] ? Provider: ?? JUAN MANUEL SIMONS ?Pt. Name: ?? ROGELIO PEREZ RUTH PEREZ ? Acc #: ?[id number] ?Pt. MRN: ?[id number] ? Col Date: ?? 01/23/2012 ?/Sex: ?1965,(46 years),Female ? Rec Date: ?? 01/23/2012 ?LOC: ?[facility] ? SURGICAL PATHOLOGY ? member service representative section cyst wall, large cyst adjacent ? to fallopian tube; (4-5) member service representative ovarian paren chyma. ??(R5) ? B - Labeled/Fixative: ??Right tube and ovary, fresh. ? Qty/Size/Weight: ? One, 3.5 x 3.0 x 1.2 cm. ? Tissue Description: ?Ovary and attached fallopian tube. ?Surface: ?The external surface of the ovary is mak- yellow and ?cerebriform. ??There is a 1.5 x 1.5- cm area of yellow ?plaque on the external surface of the ovary. ?Tumor: ?No discrete tumor is identified. ?Parenchyma: ? The ovarian parenchyma is multicystic with cysts ?ranging in size from a couple centimeters to less ? than 1.0 cm. ??The cy sts are lined by mak-pink, smooth lining. ??The ovarian ? parenchyma otherwise appears grossly unremarkable. ?Fallopian tube: ? 3.0 x 0.5 cm. ??Mak-pink, tortuous, and grossly ?unremarkable. ? Sections/Processing: ?? (1-2) member service representative sections of ovarian parenchyma; ?(3) member service representative sections of fallopian tube. ??(R3) ?aje/[facility] ? ---Clinical Information--- ? Specimen Submitted: ? A - Left tube and ovary and paratubal cyst ? B - Right tube and ovary ? Clinical History/Diagnosis: ? Ovarian cyst Specimen (Source) Anatomical Collection Method Collection Time Re ceived Time Location / / Volume Laterality 01/23/2012 9:51 AM EDT Juan Manuel Simons MD PATHOLOGY/CYTOLOGY ORDERABLE S Performing Organization Address [facility] [place] [address] CERNER MILLENNIUM Specimen to Pathology (surgical or derm) (01/23/2012 9:31 AM EDT) Specimen Anatomical Collection Method Collection Time Receive d Time (Source) Location / / Volume Laterality AP Specimen 01/23/2012 9:31 AM 2 9:31 EDT AM EDT Narrative CERNER MILLENNIUM - 01/23/2012 9:31 AM E DT Specimen requisition ordered. ??Separate Pathology report to follow Juan Manuel Simons MD PATHOLOGY/CYTOLOGY ORDERABLE S Performing Organization Address [facility] [place] [address] CERNER MILLENNIUM Specimen to Pathology (surgical or derm) (01/23/2012 9:21 AM EDT) Specimen Anatomical Collection Method Collection Time Receive d Time (Source) Location / / Volume Laterality AP Specimen 01/23/2012 9:21 AM 2 9:21 EDT AM EDT Narrative CERNER MILLENNIUM - 01/23/2012 9:21 AM E DT Specimen requisition ordered. ??Separate Pathology report to follow Juan Manuel Simons MD PATHOLOGY/CYTOLOGY ORDERABLE S Performing Organization Address [facility] [place] [address] CERNER MILLENNIUM POCT GLUCOSE LAB USE ONLY (01/23/2012 6:58 AM EDT) P athologist Signature POC Glucose 144 60 - 199 [facility] Comment: Supplemental ranges: <110 mg/dL before meals <200 mg/dL all other times of the day Specimen Anatomical Collection Method Collection Time Receive d Time (Source) Location / / Volume Laterality Blood specimen 01/23/2012 6:58 AM 012 6:58 (specimen) EDT AM EDT Juan Manuel Simons MD POINT OF CARE TEST ORDERABLE S Performing Organization Address City/State/ZIP Code Phon e Number [address] [facility] documented in this encounter Visit Diagnoses Not on filedocumented in this encounter Administered Medications Inactive Administered Medications - up to 3 most recent administrations Medication Order MAR Action Action Date Dose Rate Site atorvastatin (LIPITOR) tablet 10 mg Given 01/23/2012 9:00 PM EDT 10 mg 10 mg, Oral, EVERY EVENING, First dose on Mon01/23/12 at 1700, Until Discontinued, Therapeutic interchange for pravastatin 80 mg, Routine BUpivacaine-epiNEPHrine 0.25 Given 01/23/2012 8:25 AM 7.5 mg 19- Surgical Site %-1:200,000 injection EDT ONCE PRN, Starting on Mon01/23/12 at 0825, Until Mon01/23/12 at 1631, Intra-Operative (Intra-Procedure), Routine ceFAZolin (ANCEF) 2g in dextrose 5% 100m L Given 01/23/2012 8:05 AM EDT 2 g 2 g, Intravenous, ONCE, 1 dose, On Mon01/23/12 at 0730, Administer over 30 Minutes, Redose after 4 hours., Day of Surgery (Day of Procedure), Indication for (Active or Suspected): Prophylaxis fentaNYL 50mcg/mL injection Given 01/23/2012 12:16 PM EDT 25 mcg 25-50 mcg, Intravenous, EVERY 5 MIN PRN, Starting on Mon01/23/12 at 1036, Until Mon01/23/12 at 1631, Pain, for breakthrough pain, Hold for respiratory rate less than 10 per minute. Maximum dose: 250 mcg over one hour., PACU Recovery, Routine Given 01/23/2012 11:34 AM EDT 50 mcg Given 01/23/2012 11:23 AM EDT 25 mcg heparin (porcine) subcutaneous injection Given 012 7:50 AM EDT 5,000 Units 5,000 Units 5,000 Units, Subcutaneous, EVERY 8 HOURS SCHEDULED, First dose on Mon01/23/12 at 0730, Until Discontinued, Day of Surgery (Day of Procedure), Routine ibuprofen (ADVIL;MOTRIN) tablet 600 mg Given 01/24/2012 6:00 AM EDT 600 mg 600 mg, Oral, EVERY 6 HOURS SCHEDULED, First dose on Mon01/24/12 at 0000, Until Discontinued, Begin after the Ketorolac is discontinued, Routine Given 01/24/2012 12:00 AM EDT 600 mg insulin aspart (NOVOLOG) PEN injection 3-12 Given 01/14 8:03 AM EDT 9 Units Units 3-12 Units, Subcutaneous, 4 TIMES DAILY BEFORE MEALS & NIGHTLY, First dose on Mon01/23/12 at 1630, Until Discontinued, CORRECTION BOLUS Resistant to insulin obese patient and TDD (total daily dose of all insulin needed to achieve glycemic control) greater than 60 units BG 140 - 160 Give 3 units BG 161 - 200 Give 6 units BG 201 - 240 Give 9 units BG greater than 240, give 12 units every 2 hours until BG less than 240 (no more than three times) & call for new basal insulin orders , Routine Given 01/23/2012 10:00 PM EDT 6 Units Given 01/23/2012 4:30 PM EDT 6 Units ipratropium-albuterol (DUONEB) 0.5 mg-3 mg(2.5 Given 0 01/23/2012 6:56 PM EDT 3 mLs mg base)/3 mL nebulizer solution 3 mL 3 mL, Nebulization, EVERY 4 HOURS PRN, Starting on Mon01/23/12 at 1630, Until Mon01/24/12 at 1408, Wheezing, Routine levothyroxine (SYNTHROID) tablet 112 mcg Given 01/24/2012 6:00 AM EDT 112 mcg 112 mcg, Oral, EVERY MORNING, First dose on Mon01/24/12 at 0600, Until Discontinued, Routine lidocaine (LIDODERM) 5 %(700 mg/patch) Given 01/24/2012 8:04 AM EDT 3 patches patch 3 patch 3 patch, Transdermal, DAILY, First dose (after last reorder) on Mon01/23/12 at 1900, Until Discontinued, Apply patch(es) for 12 hours, and then remove for 12 hours, Routine Given 01/23/2012 7:00 PM EDT 3 patches loratadine (CLARITIN) tablet 10 mg Given 01/24/2012 8:03 AM EDT 10 mg 10 mg, Oral, DAILY, First dose on Mon01/23/12 at 1800, Until Discontinued, Routine Given 01/23/2012 9:00 PM EDT 10 mg OXYcodone (ROXICODONE) immediate release Given 01/24/2012 10:53 AM EDT 10 mg tablet 10 mg 10 mg, Oral, EVERY 3 HOURS PRN, Starting on Mon01/23/12 at 1717, Until Mon01/24/12 at 1408, Pain, May repeat once within 30-60 minutes if pain unrelieved., Routine Given 01/24/2012 8:03 AM EDT 10 mg Given 01/24/2012 1:46 AM EDT 10 mg OXYcodone (ROXICODONE) immediate release tablet Given 01/23/2012 5:03 PM EDT 5 mg 5 mg 5 mg, Oral, EVERY 3 HOURS PRN, Starting on Mon01/23/12 at 1022, Until Mon01/23/12 at 1717, Pain, May repeat once within 30-60 minutes if pain unrelieved., Routine Given 01/23/2012 12:50 PM EDT 5 mg Given 01/23/2012 12:20 PM EDT 5 mg OXYcodone (ROXICODONE) immediate release tablet Given 01/23/2012 2:50 PM EDT 5 mg 5 mg 5 mg, Oral, ONCE, 1 dose, On Mon01/23/12 at 1515, Routine sertraline (ZOLOFT) tablet 200 mg Given 01/24/2012 8:04 AM EDT 200 mg 200 mg, Oral, DAILY, First dose on Mon01/23/12 at 1800, Until Discontinued, Routine Given 01/23/2012 9:00 PM EDT 200 mg documented in this encounter Active and Recently Administered Medications Times are shown in EDT. Scheduled Medication Order 01/22/2012 01/23/2012 01/24/2012 atorvastatin (LIPITOR) tablet 10 mg (CANCELED) 2100 (Given - Provider: Shelton Hayes RN) 10 mg, Oral, EVERY EVENING, First dose o n Mon01/23/12 at 1700, Until Discontinued, Therapeutic interchange for pravastatin 80 mg, Routine ceFAZolin (ANCEF) 2g in dextrose 5% 100mL (COMPLETED) 0805 (Given - Provider: Ni Gooden) 2 g, Intravenous, ONCE, 1 dose, Mon at 0730, for 30 Minutes, Redose after 4 hours., Day of Surgery (Day of Procedure) heparin (porcine) subcutaneous injection 5,000 Units (CANCEL ED) 0750 (Given - Provider: Ni Gooden)1400 (Due) 5,000 Units, Subcutaneous, EVERY 8 HOURS SCHEDULED, First dose on Mon01/23/12 at 0730, Until Discontinued, Day of Surgery (Day of Procedure), Routine ibuprofen (ADVIL;MOTRIN) tablet 600 mg 0000 (Given - Provider: Leydi Min)0600 (Given - Provider: Leydi Min)1200 (Due) 600 mg, Oral, EVERY 6 HOURS SCHEDULED, F irst dose on Mon01/24/12 at 0000, Until Discontinued, Begin after the Ketorolac is discontinued, Routine insulin aspart (NOVOLOG) PEN injection 3-12 Units (CANCELED) 1630 (Given - Provider: Shelton Hayes RN)1751 (Not Given - Provider: Shelton Hayes RN - Reason: Patient/family refused)2200 (Given - Provider: Shelton Hayes RN) 0803 (Given - Provider: Ginny Sloan RN)1130 (Due) 3-12 Units, Subcutaneous, 4 TIMES DAILY BEFORE MEALS & NIGHTLY, First dose on Mon01/23/12 at 1630, Until Discontinued, CORRECTION BOLUS Resistant to insulin obese patient and TDD (total daily dos e of all insulin needed to achieve glyce bernie control) greater than 60 units BG 140 - 160 Give 3 units BG 161 - 200 Give 6 units BG 201 - 240 Give 9 units BG greater than 240, give 12 units every 2 hours until BG less than 240 (no more than thr ee times) & call for new basal insulin orders , Routine levothyroxine (SYNTHROID) tablet 112 mcg (CANCELED) 0600 (Given - Provider: Leydi Min) 112 mcg, Oral, EVERY MORNING, First dose on Mon01/24/12 at 0600, Until Discontinued, Routine lidocaine (LIDODERM) 5 %(700 mg/patch) patch 3 patch (CANCEL ED) 1900 (Given - Provider: Shelton Hayes RN - Comment: Placed across ABD, sistal to Lap sites. Dated, timed and initialed) 0804 (Given - Provider: Ginny Sloan RN) 3 patch, Transdermal, DAILY, First dose on Mon01/23/12 at 1900, Until Discontinued, Apply patch(es) for 12 hours, and then remove for 12 hours, Routine loratadine (CLARITIN) tablet 10 mg (CANCELED) 2100 (Given - Provider: Shelton Hayes RN) 0803 (Given - Provider: Ginny Sloan RN) 10 mg, Oral, DAILY, First dose on 06/27 at 1800, Until Discontinued, Routine OXYcodone (ROXICODONE) immediate release tablet 5 mg (COMPLE VIVIAN) 1450 (Given - Provider: Kathi Nick RN)1515 (Due) 5 mg, Oral, ONCE, 1 dose, Mon01/23/12 at 1515, Routine sertraline (ZOLOFT) tablet 200 mg (CANCELED) 2100 (Given - Provider: Shelton Hayes RN) 0804 (Given - Provider: Ginny Sloan RN) 200 mg, Oral, DAILY, First dose on Mon at 1800, Until Discontinued, Routine PRN Medication Order 01/22/2012 01/23/2012 01/24/2012 BUpivacaine-epiNEPHrine 0.25 %-1:200,000 injection (CANCELED ) 0825 (Given - Provider: Juan Manuel Simons MD) ONCE PRN, Starting Mon01/23/12 at 0825, U ntil Mon01/23/12 at 1631, Intra-Operative (Intra-Procedure), Routine fentaNYL 50mcg/mL injection (CANCELED) 1 039 (Given - Provider: Kathi Nick RN)1054 (Given - Provider: Kathi Nick RN)1123 (Given - Provider: Kathi Nick RN)1134 (Given - Provider: Kathi Nick RN)1216 (Given - Provider: Kathi Nick RN) 25-50 mcg, Intravenous, EVERY 5 MIN PRN, Starting 01/23/12 at 1036, Until 01/23/12 at 1631, Pain, for breakthrough pain, Hold for respiratory rate less than 10 per minute. Maximum dose: 250 mcg over one hour., PACU Recovery, Routine ipratropium-albuterol (DUONEB) 0.5 mg-3 mg(2.5 mg base)/3 mL nebulizer solution 3 mL (CANCELED) 1856 (Given - Provider: Shelton ochoa RN) 3 mL, Nebulization, EVERY 4 HOURS PRN, S tarting 01/23/12 at 1630, Until 01/24/12 at 1408, Wheezing, Routine OXYcodone (ROXICODONE) immediate release tablet 10 mg (CANCE LED) 1930 (Given - Provider: Shelton Hayes RN)2227 (Given - Provider: Shelton Hayes RN) 0146 (Given - Provider: Leydi Min)0803 (Given - Provider: Ginny Sloan RN)1053 (Given - Provider: Balaji Thomas RN - Comment: given by feroz manuel) 10 mg, Oral, EVERY 3 HOURS PRN, Starting 01/23/12 at 1717, Until 01/24/12 at 1408, Pain, May repeat once within 30-60 minutes if pain unrelieved., Routine OXYcodone (ROXICODONE) immediate release tablet 5 mg (CANCEL ED) 1220 (Given - Provider: Kathi Nick RN)1250 (Given - Provider: Keila Driscoll RN)1703 (Given - Provider: Shelton Hayes RN) 5 mg, Oral, EVERY 3 HOURS PRN, Starting 01/23/12 at 1022, Until 01/23/12 at 1717, Pain, May repeat once within 30-60 minutes if pain unrelieved., Routine documented in this encounter Care Teams [employer] Specialist Relationship Specialty Start Date End Date Sirena Rossi APRN PCP - General 09/23/10 01/26/15 MARY [address] [place] [address] documented as of this encounter
--- OUTSIDE RECORDS SUMMARY | 2022-09-16 12:30 | XMS_ITS | Encounter Summary ---
:1965 Author Organization [facility] Address [address] [place] [address] Care Team Providers Name Role Phone Sirena Torres JESSE Primary Care Provider Encounter Details Date Type Department Care Team Description 01/23/2012 - Hospital Encounter Short Stay Unit at [place], Juan Manuel Ochoa MD Other and 01/24/2012 [facility] MEDICAL unspecified o [facility] DR harmon [facility] [place] [phone] Social History Tobacco Use Types Packs/Day Years [...] your doctor if you can take an boox-doy-ptygkzc medicine. ?? Do not take two or [...] Everywhere. LAPAROSCOPY: WHAT TO EXPECT AT HOME ([place]HAWK)documented in this encounter Medications at Time of [...] have been reviewed with patient./c Juan Manuel Pike MD - 01/24/2012 6:21 AM EDT Inpatient [...] female POD#0 s/p laparoscopic BSO. S: Ms Lissett reports 9/10 abdominal pain currently, which has [...] not well controlled. Oxycodone increased to 10mg [id number]. Respiratory: CPAP overnight, 3L NC in place, [...] cpap chamber of patient's own unit. [facility] functioning. 1143 [...] to the 23 hour observation unit. 1440 [facility] rep here, new cpap machine for use [...] 11:35 AM EDT I was paged to [facility] by nursing (Ace) to assist with set [...] machine and was unsuccessful with this so [facility] was contacted (Charmaine Mims). Ms. Galeana's nurse was advised of this information and I suggested we could place patient on one of our machines if needed. documented in this encounter H&P Notes Juan Manuel Simons MD - 01/23/2012 7:07 AM EDT Inpatient CUSTOMER QUALITY ENGINEER - Admission Interval Note I have reviewed [...] and evaluated the patient with Dr. Kothari (immigration judge resident). I independentlyconfirmed the resident's history and [...] MD - 01/24/2012 6:32 AM EDT Inpatient CUSTOMER QUALITY ENGINEER - Discharge Summary Patient Name: Ruth Galeana [...] your doctor if you can take an pvku-tky-aisshjz medicine. ?? Do not take two or [...] Future Orders Please Complete By Expires Discontinue [[id number] Custom] Process Instructions: Scheduling Instructions: Comments: IV or saline lock when patient discharged. Questions: Responses: Provider Contact Information: SIRENA TORRES, MIXER OPERATOR HOT [employer]AL [phone] Discharge References/Attachments: Discharge References/Attachments None Signed: KORINA [...] surgical instrument counts were performed as per [facility] policy. Complications: None. Antibiotics: 2 gm (s) cefazolin at induction of anesthesia. DVT Prophylaxis: 5000 units of heparin subcutaneously and SCDs continuously applied to the lower extremities. Miscellaneous - Provider, Nikhil - 01/23/2012 2:09 PM EDT OR Attestation [...] Operative Note Patient Name: Ruth Galeana : [id number] MR#: [id number] Case Date: 01/23/2012 Surgeon: Surgeon(s) and Role: [...] 227 (H) 60 - 199 CERNER mg/dL [facility] Comment: Supplemental ranges: <110 mg/dL before meals <200 mg/dL all other times of the day Specimen Anatomical Collection Method Collection Time Receive d Time (Source) Location / / Volume Laterality Blood specimen 01/24/2012 8:03 AM 012 8:03 (specimen) EDT AM EDT Juan Manuel Simons MD POINT OF CARE TEST ORDERABLE S Performing Organization Address City/[facility]/ZIP Code Phon e Number [address] CERNER MILLENNIUM POCT GLUCOSE LAB USE ONLY (01/23/2012 10:14 PM EDT) athologist Signature POC Glucose 191 60 - 199 CERNER mg/dL [facility] Comment: Supplemental ranges: <110 mg/dL before meals <200 mg/dL all other times of the day Specimen Anatomical Collection Method Collection Time Receive d Time (Source) Location / / Volume Laterality Blood specimen 01/23/2012 10:14 2 (specimen) PM EDT 10:14 PM EDT Juan Manuel Simons MD POINT OF CARE TEST ORDERABLE S Performing Organization Address City/State/ZIP Code Phon e Number [address] CERNER MILLENNIUM POCT GLUCOSE [...] Organization Address City/State/ZIP Code Phon e Number [address] CERNER MILLENNIUM (ABNORMAL) POCT [...] CARE TEST ORDERABLE S Performing Organization Address City/[facility]/ZIP Code Phon e Number [address] [facility] Intelligent InS[employer]UM XR CHEST PA OR AP- 1 VIEW [...] LAB USE ONLY (01/23/2012 10:44 AM EDT) P athologist Signature POC Glucose 172 60 - 199 CERNER mg/dL [facility] Comment: Supplemental ranges: <110 mg/dL before meals <200 mg/dL all other times of the day Specimen Anatomical Collection Method Collection Time Receive d Time (Source) Location / / Volume Laterality Blood specimen 01/23/2012 10:44 2 (specimen) AM EDT 10:44 AM EDT Juan Manuel Simons MD POINT OF CARE TEST ORDERABLE S Performing Organization Address City/State/[place] [address] [facility] SURGICAL PATHOLOGY REPORT (01/23/2012 9:51 AM EDT) Component Value Ref Test Analysis Performed At [facility] gist Range Method Time Signature Surgical [facility] Pathology ? [facility] Report ? Provider: ?? JUAN MANUEL SIMONS ?Pt. Name: ?? ROGELIO PEREZ RUTH PEREZ ? Acc #: ?[id number] ?Pt. MRN: ?[id number] ? Col Date: ?? 01/23/2012 ?/Sex: ?1965,(46 [...] 01/25/12 Verified by: ? John KANG, Toni Quiles. ? Pathologist ? (Electronic Si gnature) ? [...] tortuous, and grossly unremarkable. ? Sections/Processing: ??(1) circulation sales representative fallopian t ube; (2-3) ? [facility] ? Provider: ?? JUAN MANUEL SIMONS ?Pt. Name: ?? ROGELIO PEREZ RUTH PEREZ ? Acc #: ?[id number] ?Pt. MRN: ?[id number] ? Col Date: ?? 01/23/2012 ?/Sex: ?1965,(46 years),Female ? Rec Date: ?? 01/23/2012 ?LOC: ?[facility] ? SURGICAL PATHOLOGY ? circulation sales representative section cyst wall, large cyst adjacent ? to fallopian tube; (4-5) circulation sales representative ovarian paren chyma. ??(R5) ? B [...] and grossly ?unremarkable. ? Sections/Processing: ?? (1-2) circulation sales representative sections of ovarian parenchyma; ?(3) circulation sales representative sections of fallopian tube. ??(R3) ?aje/CEH [...] MD PATHOLOGY/CYTOLOGY ORDERABLE S Performing Organization Address [facility] [place] [address] CERNER MILLENNIUM Specimen to [...] MD PATHOLOGY/CYTOLOGY ORDERABLE S Performing Organization Address [facility] [place] [address] CERNER MILLENNIUM Specimen to [...] MD PATHOLOGY/CYTOLOGY ORDERABLE S Performing Organization Address [facility] [place] [address] CERNER MILLENNIUM POCT GLUCOSE LAB USE ONLY (01/23/2012 6:58 AM EDT) P athologist Signature POC Glucose 144 60 - 199 [facility] mg/dL [facility] Comment: Supplemental ranges: <110 mg/dL before meals <200 mg/dL all other times of the day Specimen Anatomical Collection Method Collection Time Receive d Time (Source) Location / / Volume Laterality Blood specimen 01/23/2012 6:58 AM 012 6:58 (specimen) EDT AM EDT Juan Manuel Simons MD POINT OF CARE TEST ORDERABLE S Performing Organization Address City/State/ZIP Code Phon e Number [place] [phone] [facility] [address] [facility] documented in this encounter Visit Diagnoses Diagnosis Paratubal cyst - Primary Other noninflammatory disorder of ovary, fallopian tube, and broad ligament Other and unspecified ovarian cyst Sleep apnea Unspecified sleep apnea Morbid obesity Diabetes mellitus Type II or unspecified type diabetes eriberto litus without mention of complication, not stated as uncontrolled Fibromyalgia Mylagia and myositis, unspecified documented in this encounter Administered Medications [...] MIN PRN, Starting 01/23/12 at 1036, Until Mon01/23/12 at 1631, Pain, [...] Routine documented in this encounter Care Teams Grounds Restoration Specialist Relationship Specialty Start Date End Date Sirena Torres, MIXER OPERATOR HOT METAL PCP - General 09/23/10 01/26/15 MARY [address] [place] [address] documented as of this encounter
--- OUTSIDE RECORDS SUMMARY | 2022-09-16 12:30 | XMS_ITS | Encounter Summary ---
:1965 Author Organization [facility] [place] [address] Care Team Providers Name Role Phone Zhanna Francois APRN Primary Care Provider Reason for Visit Reason Comments GI Problem Encounter Details Date Type Department Care Team Description 02/10/2015 Office Visit Gastroenterology at [facility] Lotus Busby, Diarrhea; One [facility] Kesha anderson APRN Abdominal pain, unspecified abdominal lo cation; [place] [address] [facility] Fecal incontinence; [phone] C[place] [address] Social History Tobacco Use Types Packs/Day Years Used Date Smoking Tobacco: Never Smokeless Tobacco: Never Alcohol Use Standard Drinks/Week Comments No 0 (1 standard drink = 0.6 oz pure alcoho l) Sex Assigned at Date Recorded Not on file documented as of this encounter Last Filed Vital Signs Vital Sign Reading Time Taken Comments Blood Pressure 132/55 02/10/2015 3:03 PM EDT Pulse 75 02/10/2015 3:03 PM EDT Temperature - - Respiratory Rate - - Oxygen Saturation - - Inhaled Oxygen Concentration - - Weight 147.4 kg (325 lb) 02/10/2015 3:03 PM EDT Height 162.6 cm (5' 4) 02/10/2015 3:03 PM EDT Body Mass Index 55.79 02/10/2015 3:03 PM EDT documented in this encounter Patient Instructions Patient InstructionsLotus Busby APRN - 02/10/2015 4:01 PM EDT 1. Upper endoscopy with biopsies 2. Colonoscopy with biopsies 3. FODMAP diet and copy provided 4. Recommend eating smaller more frequent 5-6 low fat meals per day 5. Imodium (loperamide) 1-2 every 6 hours as needed; take 45-60 minutes before meals and bedtime 6. Bentyl (dicyclomine) 10 mg every 6 hours as needed; take 45-60 minutes before meals and bedtime 7. Lab work today and will call if results are abnormal 8. Florastor 250 mg twice a day x 3 months 9. Call or email with an update 3-4 weeks 10. Follow up 2-3 months Lotus Busby APRN [phone] documented in this encounter Progress Notes Lotus Busby APRN - 02/10/2015 3:04 PM EDT Subjective: Patient ID: Ruth Galeana is a 50 y.o. woman who presents for further evaluation of her gastrointestinal symptoms at the request of Zhanna Francois APRN. HPI Comments: Ruth Galeana is a pleasant 50 year old woman with a PMHx significant for DM II, morbid obesity (BMI 55.76), HLD, fibromyalgia and hypothyroidism who presents for consultation of her chronic diarrhea. She reports experiencing diarrhea for the past five years but symptoms have worsened over time. She denies fevers, chills, night sweats or flushing. No foreign travel, recent antibiotics, new medications or sick contacts. She experiences diarrhea day and night. She reports experiencing up to six episodes of loose brown to watery diarrhea per day. It is associated with upper abdominal pain that radiates down to her lower abdomen, gas and bloating. Periodic distention towards the end of the day. Symptoms improve after defecation. States that it feels like things build up in her system then will suddenly experience an urge to defecate. Stools can be explosive at times. Periodic fecal incontinence secondary to urgency. No melena, hematochezia, rectal or anal pain. rare steatorrhea but no mucus. Stools smell foul. She reports waiting 1-2 hours after taking Imodium before doing anything. Sometimes the diarrhea is exacerbated by eating. Admits that her diet is poor. Unable to identify any specific triggers except button mushrooms, lettuce and stress will exacerbate her diarrhea. She will take Gas-x qd with partial relief of gas and bloating. She takes Imodium 2-5 times per per day with good effect since it allows her to do things. She stopped Metformin without improvement of her diarrhea. She admits to peripheral neuropathy. Colonoscopy 2003 that was unremarkable per PCP's notes. Upper endoscopy 2010: unremarkable per patient (no reports). Stool studies negative per patient (no reports). HbA1C 8.1, it was 9.3%.. She eliminated wheat, dairy and sugar but noted no benefit. She reports eating a lot of fruits and vegetables. Drinks diet tree isaiah because is soothes her stomach. Drinks one cup of coffee per day. Appetite good. Weight gain of 10-15 lbs. No food allergies. Intolerances button mushroom and head of lettuce. Denies heartburn, regurgitation, acid taste, chest pain, ENT concerns, dysphagia, odynophagia, earlysatiety, postprandial fullness, nausea, vomiting, pre prandial symptosm. Review of Systems Constitutional: Positive for fatigue. Negative for fever, chills, diaphoresis, activity change, appetite change and unexpected weight change. HENT: Positive for sinus pressure (H/o allergic rhinitis.). Negative for congestion, dental problem,drooling, ear discharge, ear pain, facial swelling, hearing loss, mouth sores, nosebleeds, postnasaldrip, rhinorrhea, sneezing, sore throat, tinnitus, trouble swallowing and voice change. Respiratory: Negative. H/o AJITH and asthma. Cardiovascular: Negative. H/o HLD. Gastrointestinal: Positive for abdominal pain and diarrhea. Negative for nausea, vomiting, constipation, blood in stool, abdominal distention, anal bleeding and rectal pain. See HPI Endocrine: Negative. H/o DM II and hypothyroidism. Musculoskeletal: Positive for myalgias (H/o fibromyalgia.), back pain (H/o chronic back pain.) and arthralgias (H/o R knee pain). Negative for joint swelling, gait problem, neck pain and neck stiffness. Skin: Positive for rash (Rash noted on both arms and followed by dermatology. ). Negative for color change, pallor and wound. H/o actinic keratosis, seborrheic keratosis and neurodermatitis. Allergic/Immunologic: Negative. Neurological: Positive for headaches (H/o migraines. ). Negative for dizziness, tremors, seizures, syncope, facial asymmetry, speech difficulty, weakness, light-headedness and numbness. Hematological: Negative. Psychiatric/Behavioral: Positive for sleep disturbance. Negative for suicidal ideas, hallucinations,behavioral problems, confusion, self-injury, dysphoric mood, decreased concentration and agitation. The patient is not nervous/anxious and is not hyperactive. Allergies Allergen Reactions ??? Latex Rash ??? Amlodipine Other (See Comments) Suicidal thoughts ??? Imitrex [Sumatriptan Succinate] Suicidal thoughts ??? Lyrica [Pregabalin] Other (See Comments) Intolerance ??? Metformin Diarrhea ??? Prozac [Fluoxetine] Anxiety ??? Sulfa (Sulfonamide Antibiotics) ??? Tramadol Anxiety Current Outpatient Prescriptions on File Prior to Visit Medication Sig Dispense Refill ??? insulin regular CONCENTRATE U-500 (HUMULIN R U-500) 500 unit/mL Solution Inject 100 Units subcutaneously 3 times daily. 20 mL 11 ??? gabapentin (NEURONTIN) 100 mg Capsule Take 1 capsule by mouth 3 times daily. 90 capsule 3 ??? Insulin Syringe-Needle U-100 (BD INSULIN SYRINGE ULTRA-FINE) 0.3 mL 31 x 5/16 Syringe Inject 1 each subcutaneously 3 times daily. Non name brand is ok 100 Syringe 11 ??? levothyroxine (SYNTHROID) 50 mcg tablet Take 50 mcg by mouth daily. ??? levothyroxine (SYNTHROID) 200 mcg tablet Take 200 mcg by mouth daily. ??? lisinopril (PRINIVIL;ZESTRIL) 40 mg tablet Take 40 mg by mouth daily. ??? potassium chloride (K-DUR) 10 mEq tablet Take 10 mEq by mouth daily. ??? furosemide (LASIX) 20 mg tablet Take 20 mg by mouth 2 times daily. ??? rosuvastatin (CRESTOR) 20 mg tablet Take 20 mg by mouth daily. ??? ONE TOUCH DELICA LANCETS MISC by Misc.(Non-Drug; Combo Route) route 2 times daily. And PRN. ??? nystatin-triamcinolone (MYCOLOG II) cream Apply topically 3 times daily. ??? LEVALBUTEROL TARTRATE (XOPENEX HFA INHL) Inhale into the lungs every 6 hours as needed. ??? ibuprofen (ADVIL;MOTRIN) 600 mg tablet Take 1 tablet by mouth every 6 hours. 30 tablet 0 ??? sertraline (ZOLOFT) 100 mg tablet Take 200 mg by mouth daily. ??? Budesonide-Formoterol (SYMBICORT) 160-4.5 mcg/Actuation HFAA Inhale into the lungs as needed. ??? cetirizine (ZYRTEC) 10 mg tablet Take 10 mg by mouth daily. ??? lidocaine (LIDODERM) 5 %(700 mg/patch) Place 3 patches onto the skin every 12 hours. ??? ipratropium-albuterol (DUONEB) 0.5 mg-3 mg(2.5 mg base)/3 mL nebulizer solution Take 3 mLs by nebulization every 4 hours as needed. ??? atenolol (TENORMIN) 50 mg tablet 75MG = 1 1/2 Tablet(s), PO, Once daily ??? CALCIUM CARBONATE (TUMS ORAL) No current facility-administered medications on file prior to visit. Past Medical History Diagnosis Date ??? Sleep [...] OF ADNEXA performed by RAMILA SIMONS at [facility] MA[facility] OR ??? Thyroid surgery s/p thyroid ablation for Grave's disease ??? Cholecystectomy ??? Knee surgery Right x 2 ??? Ovarian cyst removal x 4 ??? section x 2 History Social History ??? Marital Status: Spouse Name: N/A Number of Children: N/A ??? Years of Education: N/A Occupational History ??? Not on file. Social History Main Topics ??? Smoking status: Never Smoker ??? Smokeless tobacco: Never Used ??? Alcohol Use: No ??? Drug Use: No ??? Sexual Activity: Not on file Other Topics Concern ??? Not on file Social History Narrative FMHx: no h/o colon or esophageal cancer; IBD; celiac disease; liver or pancreatic disease Vital Signs: BP 132/55; P 75; Wt 326 lbs; Ht 5'4 Objective: Physical Exam Constitutional: She is oriented to person, place, and time. She appears well- developed and well-nourished. No distress. HENT: Head: Normocephalic and atraumatic. Mouth/Throat: Oropharynx is clear and moist. No oropharyngeal exudate. Eyes: Pupils are equal, round, and reactive to light. Right eye exhibits no discharge. No scleral icterus. Neck: Normal range of motion. Neck supple. No JVD present. No tracheal deviation present. No thyromegaly present. Cardiovascular: Normal rate, regular rhythm, normal heart sounds and intact distal pulses. Exam reveals no gallop and no friction rub. No murmur heard. Pulmonary/Chest: Effort normal and breath sounds normal. No stridor. No respiratory distress. She has no wheezes. She has no rales. She exhibits no tenderness. Abdominal: Soft. Bowel sounds are normal. She exhibits no distension and no mass. There is tenderness (RUQ tenderness on palpation.). There is no rebound and no guarding. Abdominal exam limited by patient's body habitus. No hepatosplenomegaly. No succussion splash. No epigastric bruit. BMI: 55.76 Genitourinary: Rectal exam deferred. Lymphadenopathy: She has no cervical adenopathy. Neurological: She is alert and oriented to person, place, and time. No cranial nerve deficit. Skin: Skin is warm and dry. No rash noted. She is not diaphoretic. No erythema. No pallor. Psychiatric: She has a normal mood and affect. Her behavior is normal. Judgment and thought content normal. Vitals reviewed. Assessment and Plan: Ruth Galeana is a pleasant 50 year old woman with a PMHx significant for DM II, morbid obesity (BMI 55.76), HLD, fibromyalgia and hypothyroidism who presents for consultation of her chronic diarrhea. The etiology of her chronic diarrhea is unclear and ddx is broad. Question diabetic enteropathy, microscopic colitis, fat malabsorption, SIBO, food intolerances or IBD (low probability given no fmhx).Discussed the etiology, pathophysiology, diagnostic tests and treatment of chronic diarrhea associated with abdominal pain, gas and bloating. Recommend EGD and colonoscopy with biopsies. Recommend eating smaller more frequent 5-6 low fat meals per day. Will have her start the FODMAP diet and [id number] mg BID. Lab work today. She can take Imodium 12- tablets QID before meals and bedtime in conjunction with Bentyl 10 mg QID prn. Await results for further management. Consider CT A/P. Consider fecalfat qualitative and elastase. Consider HBT to evaluate for SIBO. I did my best to answer all of her questions. The following plan was formulated. Plan: 1. Upper endoscopy with biopsies 2. Colonoscopy with biopsies 3. FODMAP diet and copy provided 4. Recommend eating smaller more frequent 5-6 low fat meals per day 5. Imodium (loperamide) 1-2 QID prn; take 45-60 minutes before meals and bedtime; consider Lomotil or cholestyramine 2-4 grams qd-TID 6. Bentyl (dicyclomine) 10 mg QID prn; take 45-60 minutes before meals and bedtime 7. Lab work today: CBC, CMP, B12, folate, TTg IgA Ab, IgA, ESR, CRP and will call if results are abnormal 8. Florastor 250 mg BID x 3 months 9. Call or email with an update 3-4 weeks 10. Follow up 2-3 months Patient understands and is agreeable to the above plan. Written instructions provided. I spent a total of 54 minutes face to face with this patient; 30 minutes were spent counseling the patient in the medical problems described above. Thank you for the referral, Lotus Busby APRN Section of Gastroenterology and Hepatology [place] [phone] documented in this encounter Plan of Treatment Scheduled Orders Name Type Priority Associated Diagnoses Order S chedule UPPER GI ENDOSCOPY Procedures Routine Diarrhea Ordered: 02/10/2015 Abdominal pain, unspecified abdominal location COLONOSCOPY Procedures Routine Diarrhea Ordered: 02/10/2015 Abdominal pain, unspecified abdominal location Fecal incontinence documented as of this encounter Procedures Procedure Name Priority Date/Time Associated Diagnosis Comme nts HEMOGRAM Routine 02/10/2015 5:02 Diarrhea Results for this PM EDT Abdominal pain, procedure ar e in unspecified the results abdominal locati on section. Fecal incontinence DIFFERENTIAL, Routine 02/10/2015 5:02 Diarrhea Results for this AUTOMATED PM EDT Abdominal pain, procedure ar e in unspecified the results abdominal locati on section. Fecal incontinence TISSUE Routine 02/10/2015 5:02 Diarrhea Results for this TRANSGLUTAMINASE, IGA PM EDT Abdominal pain, pro cedure are in unspecified the results abdominal locati on section. Fecal incontinence SEDIMENTATION RATE Routine 02/10/2015 5:02 Diarrhea Results for this PM EDT Abdominal pain, procedure ar e in unspecified the results abdominal locati on section. Fecal incontinence CBC (WITH DIFF) Routine 02/10/2015 5:02 Diarrhea PM EDT Abdominal pain, unspecified abdominal locati on Fecal incontinence CRP, CARDIAC RISK (HS Routine 02/10/2015 5:02 Diarrhea Results for this CRP) PM EDT Abdominal pain, procedure ar e in unspecified the results abdominal locati on section. Fecal incontinence IGA Routine 02/10/2015 5:02 Diarrhea Results for this PM EDT Abdominal pain, procedure ar e in unspecified the results abdominal locati on section. Fecal incontinence FOLATE, SERUM Routine 02/10/2015 5:02 Diarrhea Results for this PM EDT Abdominal pain, procedure ar e in unspecified the results abdominal locati on section. Fecal incontinence VITAMIN B12 Routine 02/10/2015 5:02 Diarrhea Results for this PM EDT Abdominal pain, procedure ar e in unspecified the results abdominal locati on section. Fecal incontinence documented in this encounter Results (ABNORMAL) Differential, Automated (02/10/2015 5:02 PM EDT) [facility] Method Time Signature Neutrophils % 66.0 % CERNER MILLENNIUM Neutr Abs (ANC) 6.38 (H) 1.50 - CERNER 6.30 MILLENNIUM x10(3)/mc L Lymphocytes % 26.4 % CERNER MILLENNIUM Lymphocytes Abs 2.6 1.0 - 3.6 CERNER x10(3)/mc MILLENNIUM L Monocytes % 4.6 % CERNER MILLENNIUM Monocyte Abs 0.4 0.2 - 1.0 CERNER x10(3)/mc MILLENNIUM L Eosinophils % 2.5 % CERNER MILLENNIUM Eosinophils Abs 0.2 0.0 - 0.5 CERNER x10(3)/mc MILLENNIUM L Basophils % 0.2 % CERNER MILLENNIUM Basophils Abs 0.0 0.0 - 0.2 CERNER x10(3)/mc MILLENNIUM L Immature Gran % 0.30 % CERNER MILLENNIUM Comment: Immature granulocytes(IG's)percentage an d absolute count will include metamyelocytes, myelocytes, and promyelo cytes. Blood smears from CBCs yielding IG's will be scanned manually for concor dance. If this scan disagrees with the automated IG or if promyelocytes are not ed, a manual differential will be performed. Betzaida Gran Abs 0.03 0.00 - 0.05 x10(3)/mcL CER NER MILLENNIUM Specimen Anatomical Collection Method Collection Time Receive d Time (Source) Location / / Volume Laterality Blood specimen 02/10/2015 5:02 PM 015 5:09 (specimen) EDT PM EDT Resulting Agency Comment Spec In Lab Hermes Luna MD HEMATOLOGY ORDERABLES Performing Organization Address City/State/[place] [address] CERNER MILLENNIUM (ABNORMAL) Hemogram (02/10/2015 5:02 PM EDT) P athologist Signature WBC 9.7 4.0 - 10.0 CERNER x10(3)/mcL MILLENNIUM RBC 5.21 3.93 - CERNER 5.22 MILLENNIUM x10(6)/mcL Hemoglobin 15.2 11.2 - CERNER 15.7 gm/dL MILLENNIUM Hematocrit 44.7 34.0 - CERNER 45.0 % MILLENNIUM MCV 85.8 79.0 - CERNER 94.0 fL MILLENNIUM MCH 29.2 26.6 - CERNER 32.2 pg MILLENNIUM MCHC 34.0 32.0 - CERNER 36.5 gm/dL MILLENNIUM Platelets 228 145 - 370 CERNER x10(3)/mcL [facility] RDWSD 45.1 35.0 - CERNER 46.0 fL [facility] RDWCV 14.5 (H) 10.9 - CERNER 14.4 % [facility] MPV 11.0 9.0 - 12.0 CERNER fL [facility] Specimen Anatomical Collection Method Collection Time Receive d Time (Source) Location / / Volume Laterality Blood specimen 02/10/2015 5:02 PM 015 5:09 (specimen) EDT PM EDT Resulting Agency Comment Spec In Lab Hermes Luna MD HEMATOLOGY ORDERABLES Performing Organization Address City/State/[place] [address] [facility] High Sensitivity CRP (02/10/2015 5:02 PM EDT) P athologist Signature CRP High Sens 5.2 mg/L [facility] Comment: Interpretations: 1) For accurate cardiac risk assessment, the average of 2 values >2 weeks apart should be obtained (ref 1&2). A value >1 0 mg/L indicates an inflammatory condition, concentrations >10 mg/L shoul d not be used for cardiac risk assessment. ?<1.0 mg/L: low risk ?1.0 - 3.0 mg/L: moderate risk ?>3.0 mg/L: high risk groups for fu ture cardiovascular events 2) The general reference range of appare ntly healthy individuals using this test is <5.0 mg/L (derived from the test package insert) References: 1. Jennifer PERKINS et. al. ??AHA/CDC Scientif ic Statement: Markers of Inflammation and Cardiovascular Disease. ??Circulatio n 2003; 107:499-511 2. Ridker PM. ??Clinical applications of C-reactive protein for cardiovascular disease detection and prevention. ??Circ ulation 2003; 107:363-369 Specimen Anatomical Collection Method Collection Time Receive d Time (Source) Location / / Volume Laterality Blood specimen 02/10/2015 5:02 PM 015 5:09 (specimen) EDT PM EDT Resulting Agency Comment Spec In Lab Hermes Luna MD CHEMISTRY ORDERABLES Performing Organization Address City/State/[place] [address] CERNER MILLENNIUM Sedimentation rate (02/10/2015 5:02 PM EDT) athologist Signature Sed Rate 13 0 - 20 CERNER mm/hr MILLENNIUM Specimen Anatomical Collection Method Collection Time Receive d Time (Source) Location / / Volume Laterality Blood specimen 02/10/2015 5:02 PM 015 5:09 (specimen) EDT PM EDT Resulting Agency Comment Spec In Lab Hermes Luna MD HEMATOLOGY ORDERABLES Performing Organization Address City/[facility]/ZIP Code Phon e Number [address] [facility] Folate, serum (02/10/2015 5:02 PM EDT) athologist Signature Folate Lvl 11.4 4.6 - 34.8 CERNER ng/mL MILLENNIUM Specimen Anatomical Collection Method Collection Time Receive d Time (Source) Location / / Volume Laterality Blood specimen 02/10/2015 5:02 PM 015 5:09 (specimen) EDT PM EDT Resulting Agency Comment Spec In Lab Hermes Luna MD CHEMISTRY ORDERABLES Performing Organization Address City/[facility]/ZIP Code Phon e Number [address] CERNER MILLENNIUM Vitamin B12 (02/10/2015 5:02 PM EDT) athologist Signature Vitamin B-12 559 207 - 974 CERNER pg/mL [facility] Specimen Anatomical Collection Method Collection Time Receive d Time (Source) Location / / Volume Laterality Blood specimen 02/10/2015 5:02 PM 015 5:09 (specimen) EDT PM EDT Resulting Agency Comment Spec In Lab Hermes Luna MD CHEMISTRY ORDERABLES Performing Organization Address City/State/[place] [address] CERNER MILLENNIUM IgA (02/10/2015 5:02 PM EDT) athologist Signature IgA 234 70 - 400 CERNER mg/dL MILLENNIUM Specimen Anatomical Collection Method Collection Time Receive d Time (Source) Location / / Volume Laterality Blood specimen 02/10/2015 5:02 PM 015 5:09 (specimen) EDT PM EDT Resulting Agency Comment Spec In Lab Hermes Luna MD IMMUNOLOGY ORDERABLES Performing Organization Address [facility]/ZIP [facility] e [address] [facility] Tissue transglutaminase, IgA (02/10/2015 5:02 PM EDT) athologist Signature TTG IgA Ab <4.0 <=3.9 u/ml CERNER [facility] Comment: Result Interpretation: Negative: ?<4 U/mL Weak Positive: ??4-10 U/mL Positive: ?>10 U/mL Specimen Anatomical Collection Method Collection Time Receive d Time (Source) Location / / Volume Laterality Blood specimen 02/10/2015 5:02 PM 015 8:12 (specimen) EDT AM EDT Resulting Agency Comment Spec In Lab Hermes Luna MD IMMUNOLOGY ORDERABLES Performing Organization Address [facility] e Number [address] [facility] documented in this encounter Visit Diagnoses Diagnosis Diarrhea Abdominal pain, unspecified abdominal lo cation Fecal incontinence Full incontinence of feces Abdominal bloating Flatulence, eructation, and gas pain documented in this encounter Care Teams Managed Care Coordinator Relationship Specialty Start Date End Date Zhanna Francois APRN PCP - General 01/27/15 05/15/19 documented as of this encounter
--- OUTSIDE RECORDS SUMMARY | 2022-09-16 12:30 | XMS_ITS | Encounter Summary ---
:1965 Author Organization [facility] Address [address] [place] [address] Care Team Providers Name Role Phone Sirena Rossi METHODS TIME ANALYST Primary Care Provider Encounter Details Date Type Department Care Team Description 01/05/2015 Orders Only Endocrinology at [facility] Lluvia Rios, Type II or unspecified [facility] METHODS TIME ANALYST type diabetes mellitus [facility] [place] [address] jensen, ENDOCRINOLOGY uncontrolled DEPT. [place], [place] [address] Social History Tobacco Use Types Packs/Day Years Used Date Smoking Tobacco: Never Smokeless Tobacco: Never Alcohol Use Standard Drinks/Week Comments No 0 (1 standard drink = 0.6 oz pure alcoho l) Sex Assigned at Date Recorded Not on file documented as of this encounter Plan of Treatment Not on filedocumented as of this encounter Results LDL Cholesterol, Direct (2015 12:24 PM EDT) P athologist Signature LDL Chol 92 <=99 mg/dL CERNER Direct [facility] Comment: The National Cholesterol Education Progr am (NCEP) has set the following guidelines for LDL Cholesterol: Reference range: ?? Optimal: ?<100 mg/dL ?? Near Optimal/Above Optimal: ?? 100-1 29 mg/dL ?? Borderline high: ?130-159 mg/dL ?? High: ? 160-189 mg/dL ?? Very high: ?>zk=477 mg/dL DUNCAN 2001: 285(19):3124-1620 Specimen Anatomical Collection Method Collection Time Receive d Time (Source) Location / / Volume Laterality Blood specimen 2015 12:24 5 (specimen) PM EDT 12:29 PM EDT Resulting Agency Comment Spec In Lab Sergo Garcia MD CHEMISTRY ORDERABLES Performing Organization Address City/State/[place] [address] CERNER MILLENNIUM (ABNORMAL) Hemoglobin A1c (2015 12:24 PM EDT) Analysis Performed At Patho logist Time Signature Hemoglobin A1C 8.6 (H) 4.3 - 5.6 CERNER % MILLENNIUM Comment: Reference Range: 4.3 - 5.6% 5.7 - 6.4% - Increased Risk of Developin g Diabetes Mellitus >= 6.5% - Consistent with diagnosis of D iabetes Mellitus In the absence of hyperglycemia (i.e. pl asma glucose > 200 mg/dL) or classic symptoms of hyperglycemia a repeat measu rement of HbA1c should be performed on a separate sample to confirm the diagnos is. Diagnosis and Classification of Diabetes Mellitus, Diabetes Care 2013; 36: Suppl. 1, S67-74 Est Avg Gluc 200 mg/dL CERNER MILLENNIUM Comment: eAG equivalents for HbA1c percentages: HbA1c(%) ?eAG(mg/dL) 6.0 ?126 6.5 ?140 7.0 ?154 7.5 ?169 8.0 ?183 8.5 ?197 9.0 ?212 9.5 ?226 10.0 ? 240 Limitations: The eAG calculation has not been validated on women, individuals below 18 years old and above 70 years old, and individuals with hemoglobinopathies. Additional resources are available on [facility] website: [email or web address] MIDWE[facility] CITYadacalc Kota STEIN, Sanford J, Livia R, et al. ??Tr anslating the A1C assay into estimated average glucose values. ??Diabetes Care 2008:31(8):9802-2052. Specimen Anatomical Collection Method Collection Time Receive d Time (Source) Location / / Volume Laterality Blood specimen 2015 12:24 5 (specimen) PM EDT 12:29 PM EDT Resulting Agency Comment Spec In Lab Sergo Garcia MD CHEMISTRY ORDERABLES Performing Organization Address City/State/ZIP Code Phon e Number [place] [phone] CERNER MILLENNIUM Creatinine (2015 12:24 PM EDT) athologist Signature Creatinine 0.71 0.70 - 1.20 CERNER mg/dL MILLENNIUM Comment: Please note that the pediatric reference intervals supplied above were not validated at [facility]. Results from pediatri c patients should be interpreted in conjunction to the patient's age, height and muscle mass. Estimated GFR >60 >=60 DEDENER LEIU M Comment: This estimated GFR (eGFR) value was [...] the following links into your internet browser. [email or web address] [email or web address] Specimen Anatomical Collection Method Collection Time Receive d Time (Source) Location / / Volume Laterality Blood specimen 2015 12:24 5 (specimen) PM EDT 12:29 PM EDT Resulting Agency Comment Spec In Lab Sergo Garcia MD CHEMISTRY ORDERABLES Performing Organization Address City/State/[place] [address] [facility] documented in this encounter Visit Diagnoses Diagnosis Type II or unspecified type diabetes eriberto litus without mention of complication, uncontrolled documented in this encounter Care Teams Medicine Worker Relationship Specialty Start Date End Date Sirena Rossi APRN PCP - General 09/23/10 01/26/15 [facility]ARY [address] [place] [address] documented as of this encounter
--- OUTSIDE RECORDS SUMMARY | 2022-09-16 12:30 | XMS_ITS | Encounter Summary ---
:1965 Author Organization [facility] [place] [address] Care Team Providers Name Role Phone Sirena Rossi APRN Primary Care Provider Reason for Visit Reason Comments Skin Check Encounter Details Date Type Department Care Team Description [facility] Lul KANG Clavus [address] [place], [place] DERMATOLOGY [address] [place], [place] [phone] Social History Tobacco Use Types Packs/Day Years Used Date Smoking Tobacco: Never Smokeless Tobacco: Never Alcohol Use Standard Drinks/Week Comments No 0 (1 standard drink = 0.6 oz pure alcoho l) Sex Assigned at Date Recorded Not on file documented as of this encounter Patient Instructions Patient InstructionsFrNickie bill LPN - 06/27/2014 2:29 PM EDT [facility] Dermatitis: After Your Visit Your Care Instructions Dermatitis is the general name used for any rash or inflammation of the skin. Different kinds of dermatitis cause different kinds of rashes. Common causes of a rash include new medicines, plants (such as poison oak or poison frida), heat, stress, and allergies to soaps, cosmetics, detergents, chemicals,and fabrics. Certain illnesses can also cause a rash. Unless caused by an infection, these rashes cannot be spread from person to person. How long your rash will last depends on what caused it. Rashes may last a few days or months. Follow-up care is a gregory part of your treatment and safety. Be sure to make and go to all appointments, and call your doctor if you are having problems. It???s also a good idea to know your test resultsand keep a list of the medicines you take. How can you care for yourself at home? ?? Do not scratch. Cut your nails short, and file them smooth. Or you may wear gloves if this helps keep you from scratching. ?? If you use soap on the rash, choose a gentle soap and use as little as possible. ?? Put cold, wet cloths on the rash to reduce itching. ?? Keep cool, and stay out of the sun. Heat makes itching worse. ?? Leave the rash open to the air when you can. If your clothes have to cover the rash, wear cotton or silk. ?? If the rash itches, use hydrocortisone cream. Follow the directions on the label. Calamine lotionmay help for plant rashes. ?? Try an ugda-szt-cjjuhms antihistamine such as diphenhydramine (Benadryl) or chlorpheniramine (Chlor-Trimeton). Follow the directions on the label. ?? If you get a prescription steroid cream or pills, use them as directed. When should you call for help? Call your doctor now or seek immediate medical care if: ?? You have signs of infection, such as: ?? Increased pain, swelling, warmth, or redness. ?? Red streaks leading from the rash. ?? Pus draining from the rash. ?? A fever. ?? You have joint pain along with the rash. ?? The rash gets worse or spreads to other parts of your body. Watch closely for changes in your health, and be sure to contact your doctor if: ?? You do not get better after 2 to 3 weeks of home treatment. Where can you learn more? Visit our health information library at [email or web address] You can also view health information on [employer], your personal patient account. Log in or sign up today. Enter F270 in the search box to learn more about Dermatitis: After Your Visit. ?? [id number] [employer]. Care instructions adapted under license by [facility]. This care instruction is for use with your licensed healthcare professional. If you have questionsabout a medical condition or this instruction, always ask your healthcare professional. [employer] disclaims any warranty or liability for your use of this information. Content Version: [id number]; Last Revised: March 01, 2013 documented in this encounter Progress Notes Jef Stauffer MD - 06/27/2014 3:55 PM EDT Problem: Pruritic dermatitis. Ruth Perez is a 49-year-old woman who states that she has had an itchy rash over her dorsal hands and forearms and legs that seemed to begin about the time she was given an oral medication for constipation that seemed to cause a diffuse rash. The rash has cleared, but she continues to have individual itchy pruritic papules over the dorsal forearms and arms and over her legs. She has tried using hydrogen peroxide, Bag [place], rubbing alcohol, various cleansers, and topica Benadryl for these sites. She has cleansed them carefully on a daily basis, but they seem to be sensitive and quite itchy. She is on medical disability and states that after a OUTPATIENT THERAPIST injury any creams or lotions on her arms are extremely bothersome to her. She cannot tolerate ointments; she cannot tolerate most creams. Her medications that she takes currently make her feel quite sleepy, and she is really not prepared to take oral antihistamines that might also be sedating. The patient is seen in consultation today for Matias Russell M.D. Physical examination reveals a pleasant 49-year-old woman who has numerous erythematous papules, many excoriated, just present over the dorsal forearms and arms and a few over the distal dorsal thigh and shins. These are just present over the extensor surface, not involving the volar surfaces/flexor surfaces. She has none on the head and neck. She is freckled, fair skinned. She also has a hard clavus under the left distal sole of her foot. Assessment and Plan: 1. Hard clavus. a. Site was pared down. b. Recommend using Mediplast or other salicylic acid plaster to soften the skin, and then use loofa sponge or pumice stone to rub off , dry skin. c. Patient complains of this feeling like a spike or a nail pushing up into her foot when she puts weight on it. After my trimming it down today with a razor blade, it did feel better. No evidence of verruca seen. 2. Neurodermatitis. a. Discussed the need to break the yyew-hfnfgrx-zkdu cycle. She may have had an irritant allergic drug reaction initially, but she now has ongoing pruritic dermatitis and she is having trouble with not scratching her skin. b. After obtaining informed consent, sites were injected with Kenalog 5 mg/mL, and 4 mL of this mixture were thus expended. c. Begin clobetasol scalp solution, which I think she will be able to tolerate on her skin; it is not heavy, not greasy. Apply on a q.h.s. basis to affected areas; 60 mL times two dispensed for a one-month supply. Recommend return to clinic in another month for repeat check. Encouraged patient to cut her nails shorter. Do not scrub or use hydrogen peroxide any longer to these sites. I reassured her I see no evidence of infection. Would not recommend oral antibiotics. Return to clinic in a month for repeat check. COPY: Matias Russell M.D. documented in this encounter Plan of Treatment Not on filedocumented as of this encounter Visit Diagnoses Diagnosis Neurodermatitis - Primary Lichenification and lichen simplex chron icus Clavus Corns and callosities documented in this encounter Care Teams Obstetrical Nurse Relationship Specialty Start Date End Date Sirena Rossi APRN PCP - General 09/23/10 01/26/15 [facility] [address] [place] [address] documented as of this encounter
--- OUTSIDE RECORDS SUMMARY | 2022-09-16 12:30 | XMS_ITS | Encounter Summary ---
:1965 Author Organization [facility] [place] [address] Care Team Providers Name Role Phone Sirena Rossi APRN Primary Care Provider Reason for Visit Reason Comments Establish Care records faxed ovarian cyst Encounter Details Date Type Department Care Team Description 01/13/2012 Office Visit Gynecology Oncology Juan Mnauel Cook MD Other and unspecified at [facility] ovarian cyst (Primary [facility] [address]) [place], [place] ONCOLOGY [address] [place] [address] [phone] Social History Tobacco Use Types Packs/Day Years Used Date Smoking Tobacco: Never Smokeless Tobacco: Never Alcohol Use Standard Drinks/Week Comments No 0 (1 standard drink = 0.6 oz pure alcoho l) Sex Assigned at Date Recorded Not on file documented as of this encounter Last Filed Vital Signs Vital Sign Reading Time Taken Comments Blood Pressure 144/84 01/13/2012 9:02 AM EDT Pulse - - Temperature - - Respiratory Rate - - Oxygen Saturation - - Inhaled Oxygen Concentration - - Weight 146.5 kg (322 lb 15.6 oz) 01/13/2012 9:02 AM EDT Height 162 cm (5' 3.78) 01/13/2012 9:02 AM EDT Body Mass Index 55.82 01/13/2012 9:02 AM EDT documented in this encounter Progress Notes Juan Manuel Cook MD - 01/19/2012 6:11 PM EDT Gynecologic Oncology Clinic Note: New patient visit. Reason for visit: 10 cm left adnexal cyst, referred by: Claribel Petit M.D.. History of present illness: There is a 46-year-old white female who is referred by Dr. Petit for evaluation and treatment management for a 10 cm left ovarian cyst. The patient reports a history left lower quadrant pain for approximately 1.5 years. She describes this is intermittent. She also has long-standing low back pain. We reports that the left lower quadrant pain and back pain hurts in all positions, like menstrual cramps. She voices early satiety and says that nothing tastes good as far as foodis concerned. She reports alternating constipation and diarrhea. She had an episode of bleeding one month ago which she attributes to a hemorrhoid. She has chronic stress incontinence and uses pads to control her urine. She denies vaginal bleeding or discharge. She is hoping to achieve some relief of her symptoms especially the left lower quadrant pain, by removing the adnexal cyst. Review of systems: Ten systems in total reviewed, otherwise negative except as described above. Gynecologic history: Her menarche was at age 10, she had regular cycles. She reports her last menstrual period was 4 years ago. Her last Pap test was one year ago and was normal by her report. She had 5 pregnancies in total. She had 2 deliveries, 2 spontaneous vaginal deliveries. She reports a history of 2 prior ovarian surgeries for cysts. She's been using a Tisha IUD for 4 years for her dysmenorrhea. Past medical history: 1. Chronic low back pain, uses lidocaine patch. 2. Traumatic brain injury from slip and fall, 2008. 3. Fibromyalgia, 8 years, previously used gabapentin. 4. History of migraines, starting 2008, uses atenolol. 5. Type 2 diabetes, x4 years. Lantus 60 units twice a day; NovoLog sliding scale. 6. Asthma, and despite pollen. 7. Hypothyroidism, status post ablation in 2001. 8. Depression. 9. Morbid obesity. Past surgical history: 1. Ovarian cystectomies, 1991, 1992, laparoscopic and open respectively. 2. Right knee anterior cruciate ligament repairs, 1993, 1997, 2004. 3. Laparoscopic cholecystectomy, 1991. Family history: Negative for breast, ovary, colon, uterine/endometrial, gastric, or renal cancers. Social history: lives in [facility], in an apartment with 3 children. She has no significant other. Her primary next of kin is her sister Hanh, who accompanies her today. She does not exercise regularly, but does enjoy sewing. Tobacco history: Never smoked. Alcohol history: Does not drink. Drug use: Denies. Herbal/alternative therapies: Denies. Cancer screening history: Mammography: One year ago, normal. Colonoscopy: One year ago, in preparation for possible gastric bypass procedure. Medications: Current outpatient prescriptions Medication Sig Dispense Refill ??? OXYcodone (ROXICODONE) 5 mg immediate release tablet Take 10 mg by mouth every 4 hours as needed. ??? pravastatin (PRAVACHOL) 80 mg tablet Take 80 mg by mouth daily. ??? furosemide (LASIX) 20 mg tablet Take 20 mg by mouth daily. ??? sertraline (ZOLOFT) 100 mg tablet Take 200 mg by mouth daily. ??? insulin glargine (LANTUS) 100 unit/mL vial injection Inject 60 Units subcutaneously 2 times daily. ??? Budesonide-Formoterol (SYMBICORT) 160-4.5 mcg/Actuation HFAA Inhale into the lungs as needed. ??? insulin aspart (NOVOLOG KANIKA) 100 unit/mL pen cartridge Inject subcutaneously 3 times daily (with meals). Sliding scale ??? cetirizine (ZYRTEC) 10 mg tablet Take 10 mg by mouth daily. ??? lisinopril (PRINIVIL;ZESTRIL) 20 mg tablet Take 20 mg by mouth daily. ??? lidocaine (LIDODERM) 5 %(700 mg/patch) Place 3 patches onto the skin every 12 hours. ??? ipratropium-albuterol (DUONEB) 0.5 mg-3 mg(2.5 mg base)/3 mL nebulizer solution Take 3 mLs by nebulization every 4 hours as needed. ??? atenolol (TENORMIN) 50 mg tablet 75MG = 1 1/2 Tablet(s), PO, Once daily ??? levothyroxine (SYNTHROID) 112 mcg tablet 224MCG = 2 Tablet(s), PO, Once daily ??? CALCIUM CARBONATE (TUMS ORAL) Allergies: Allergies Allergen Reactions ??? Latex Rash ??? Sulfa (Sulfonamide Antibiotics) ??? Prozac (Fluoxetine) Anxiety ??? Tramadol Anxiety ??? Metformin Diarrhea ??? Lyrica (Pregabalin) Other (See Comments) Intolerance ??? Amlodipine Other (See Comments) Suicidal thoughts ??? Imitrex (Sumatriptan Succinate) Suicidal thoughts Performance status: ECOG/WHO = 1-2. Vital signs: BP 144/84 Ht 162 cm (5' 3.78) Wt 146.5 kg (322 lb 15.6 oz) BMI 55.82 kg/m2 Physical examination: General: There is a very overweight woman who looks to be important health. Additionally she has some memory issues likely related to her TBI. She most slowly to and from the examination table, and hastrouble arising from a supine position. HEENT: Head exam was generally normal. There was no scleral icterus or corneal arcus. Mucus membranes were moist. Neck was supple and without jugular venous distension, thyromegaly, or carotid bruits. Carotids were easily palpable bilaterally. There was no adenopathy. Lungs: Lungs were clear to auscultation and percussion, and with normal diaphragmatic excursion. No wheezes or rales were noted. Heart: Very faint heart sounds, normal S1, S2. Breast exam: Deferred. Abdomen: Very obese, but no obvious organomegaly, masses, ascites or tenderness. The exam is limitedby her body habitus. Pelvic examination: Normal external genitalia, no lesions the vulva, clitoris, urethra meatus or perianal area. The cervix and vagina are atrophic. The cervix is very high in the pelvis and difficult to see, and IUD string is noted. On digital exam I am unable to palpate the uterus due to her habitus.Rectal exam confirms the above. Extremities: 1-2+ edema bilateral lower extremities. Laboratory studies: Ordered today, remarkable for hemoglobin A1c of 9.9, indicating poor glycemic control. Pathology studies: Not applicable Imaging studies: I personally reviewed the images above the CT and pelvic ultrasound, noting the 10 cm simple left adnexal cyst. Impression/plan: This is a 46-year-old woman with a 10 cm left ovarian cyst. It has a simple appearance on both imaging studies. It may or may not be associated with her left lower quadrant pain, and Ireviewed this with today. However, do feel that [...] the hospital. Her surgery scheduled for 01/23/2012. Thank you for sending Ruth to see me today. I will keep you informed of our progress in her care. documented in this encounter Miscellaneous Notes Miscellaneous - Dylan, Television Director - 01/25/2012 1:52 PM EDT documented in this encounter Plan of Treatment Not on filedocumented as of this encounter Results (ABNORMAL) Hemoglobin A1c (01/13/2012 11:14 AM EDT) Analysis Performed At [facility] Time Signature Hemoglobin A1C 9.9 (H) 4.3 - 6.1 CERNER % MILLENNIUM Est Avg Gluc 237 mg/dL [facility] Comment: eAG equivalents for HbA1c percentages: HbA1c(%) ?eAG(mg/dL) 6.0 ?126 6.5 ?140 7.0 ?154 7.5 ?169 8.0 ?183 8.5 ?197 9.0 ?212 9.5 ?226 10.0 ? 240 Limitations: The eAG calculation has not been validated on women, individuals below 18 years old and above 70 years old, and individuals with hemoglobinopathies. Additional resources are available on e ADA website: ??http://professional.diabetes.org/gluc osecalculator.aspx Reference: Kota STEIN, Sanford J, Livia R, et al. ??Tr anslating the A1C assay into estimated average glucose values. ??Diabetes Care 2008:31(8):3438-9338. Specimen Anatomical Collection Method Collection Time Receive d Time (Source) Location / / Volume Laterality Blood specimen 01/13/2012 11:14 2 (specimen) AM EDT 11:28 AM EDT Resulting Agency Comment Spec In Lab Juan Manuel Cook MD CHEMISTRY ORDERABLES Performing Organization Address City/[facility] Code Phon e Number [address] [facility] Cancer Antigen 125 (01/13/2012 11:14 AM EDT) athologist Signature CA 125 14 <=20 u/ml [facility] Comment: Beginning 09/15/08 the CA125 assay will b e performed by a new method. ??This new method will yield results that are, on a verage, 20% lower than the previous method. ??If you have been monitoring pa tients, please interpret serial CA125 results with caution with regards to the reports dated after 09/14/08, taking into account this downshift. ??No adjust ment is needed for new patients being monitored after 09/14/08. ??The new refe rence range for the assay will be <21 U/mL versus <35 U/mL with the previous m ethod. ??If you have any questions, please contact the lab at [phone]. Specimen Anatomical Collection Method Collection Time Receive d Time (Source) Location / / Volume Laterality Blood specimen 01/13/2012 11:14 2 2:26 (specimen) AM EDT PM EDT Resulting Agency Comment Spec In Lab Juan Manuel Cook MD CHEMISTRY ORDERABLES Performing Organization Address City/[facility]/ZIP [place] [address] [employer] Creatinine, serum (01/13/2012 11:14 AM EDT) athologist Signature Creatinine 0.80 0.70 - CERNER 1.20 mg/dL [facility] Estimated GFR >60 >=60 CERNER [facility] Comment: The National Kidney Disease Education Pr [...] disease. References: http://nkdep.nih.gov/resources/NKDEP_Sug gestn4Labs_0606_508.pdf http://www.kidney.org/professionals/kls/ pdf/faq_gfr.pdf Kate Lawton, Renato NA, Marli AK, Jonathon TS, Emlo AD, Frank ANDRE. Relative performance of the [...] Cook MD CHEMISTRY ORDERABLES Performing Organization Address City/[facility]/ZIP [place] [address] CERNER MILLENNIUM BUN (01/13/2012 11:14 AM EDT) P athologist Signature BUN 14 8 - 18 CERNER mg/dL [facility]UM Specimen Anatomical Collection Method Collection Time Receive d Time (Source) Location / / Volume Laterality Blood specimen 01/13/2012 11:14 2 (specimen) AM EDT 11:27 AM EDT Resulting Agency Comment Spec In Lab Juan Manuel Cook MD CHEMISTRY ORDERABLES Performing Organization Address [facility] [place] [address] CERNER MILLENNIUM Electrolytes panel (01/13/2012 11:14 AM EDT) P athologist Signature Sodium 140 135 - 145 [...] Cook MD CHEMISTRY ORDERABLES Performing Organization Address City/[facility] [place] [address] CERNER MILLENNIUM CBC (with Diff) (01/13/2012 11:14 AM EDT) P athologist Signature WBC 8.9 4.0 - 10.0 [...] RDWCV 14.2 10.9 - 14.4 CERNER % MILLENNIUM MPV 11.6 9.0 - 12.0 CERNER fL MILLENNIUM Specimen Anatomical Collection Method Collection Time Receive d Time (Source) Location / / Volume Laterality Blood specimen 01/13/2012 11:14 2 (specimen) AM EDT 11:28 AM EDT Resulting Agency Comment Spec In Lab Juan Manuel Cook MD HEMATOLOGY ORDERABLES Performing Organization Address City/State/ZIP [place] [address] CERNER MILLENNIUM documented in this encounter Visit Diagnoses Diagnosis Other and unspecified ovarian cyst - Kate ruth documented in this encounter Care Teams Water Mechanic Relationship Specialty Start Date End Date Sirena Rossi, JESSE PCP - General 09/23/10 01/26/15 MARY [address] [place] [address] documented as of this encounter
--- OUTSIDE RECORDS SUMMARY | 2022-09-16 12:30 | XMS_ITS | Encounter Summary ---
:1965 Author Organization [facility] [place] [address] Care Team Providers Name Role Phone Zhanna Francois APRN Primary Care Provider Reason for Visit Reason Onset Date Comments Medication Refill 02/03/2015 Encounter Details Date Type Department Care Team Description 02/03/2015 Refill Endocrinology at [facility] Lluvia Rios OPERATING MANAGER [facility] [place] [address] ENDOCRINOLOGY DEPT. [phone] [place], [place] [address] (Wo rk) Social History Tobacco [...] on filedocumented in this encounter Care Teams Dirt Bike Mechanic Relationship Specialty Start Date End Date Zhanna Francois APRN PCP - General 01/27/15 05/15/19 documented as of this encounter
--- OUTSIDE RECORDS SUMMARY | 2022-09-16 12:30 | XMS_ITS | Encounter Summary ---
:1965 Author Organization [facility] [place] [address] Care Team Providers Name Role Phone Sirena Rossi APRN Primary Care Provider Reason for Visit Reason Onset Date Comments Medication Refill 10/31/2012 Encounter Details Date Type Department Care Team Description 10/31/2012 Refill Endocrinology at [facility] Lluvia Rios SURGEON ASSISTANT [facility] [place] [address] ENDOCRINOLOGY DEPT. [phone] [place], [place] [address] (Wo rk) Social History Tobacco [...] on filedocumented in this encounter Care Teams Filler Picker Relationship Specialty Start Date End Date Sirena Rossi APRN PCP - General 09/23/10 01/26/15 MARY [address] [place] [address] documented as of this encounter
--- OUTSIDE RECORDS SUMMARY | 2022-09-16 12:30 | XMS_ITS | Encounter Summary ---
:1965 Author Organization [facility] [place] [address] Care Team Providers Name Role Phone AlessandroZhanna Jhonny MOLINA Primary Care Provider Encounter Details Date Type Department Care Team Description 02/12/2015 Telephone Endocrinology at [facility] Gina Ramos, [place] [address] Social History Tobacco Use Types Packs/Day Years Used Date Smoking Tobacco: Never Smokeless Tobacco: Never Alcohol Use Standard Drinks/Week Comments No 0 (1 standard drink = 0.6 oz pure alcoho l) Sex Assigned at Date Recorded Not on file documented as of this encounter Miscellaneous Notes Telephone Encounter - Liza Cook LPN - 02/12/2015 12:13 PM EDT Spoke with patient re blisters on her arms post LN2 treatments on 02-10-15, she reports they are and inch in height, fluid filled, pain that radiates from forearm to elbow, red around the edges, warm totouch, she denies fever. Call transferred to typing secretary for scheduling ravin. Telephone Encounter - Gina Urias, RN - 02/12/2015 11:32 AM EDT Ruth Perez calls nurse triage line and left voicemail message that she still does not have any news on her on insulin. Placed call Ruth Perez who states she received a call from [employer] that the PA had been denied. Manoj states that she is now using [employer] and is that perhaps why it was denied. Let Ruth know would look into whatever is going on and let her know. Spoke with PA typing secretary who states that one of the other secretaries, whom is not in today, has beenworking on it. Placed call to Edith Levin and spoke with [employer] who provided number that their system gives. [phone]. Placed call and spoke with Lovely at [facility] who takes all the information and states that it will be sent in to the clinic department for review and in 72 hours they will have an answer. Placed call to Ruth Perez to let her know, no answer left message. documented in this encounter Plan of Treatment Not on filedocumented as of this encounter Visit Diagnoses Not on filedocumented in this encounter Care Teams Checker Dump Grounds Relationship Specialty Start Date End Date Zhanna Francois APRN PCP - General 01/27/15 05/15/19 documented as of this encounter
--- OUTSIDE RECORDS SUMMARY | 2022-09-16 12:30 | XMS_ITS | Encounter Summary ---
:1965 Author Organization [facility] [place] [address] Care Team Providers Name Role Phone Zhanna Francois JESSE Primary Care Provider Encounter Details Date Type Department Care Team Description 04/09/2015 [facility] or Encounter [facility] [facility] Rene Ford MD [facility] [place] [address] GASTROENTEROLOGY [phone] [place], [place] [address] Social History Tobacco Use Types Packs/Day Years Used Date Smoking Tobacco: Never Smokeless Tobacco: Never Alcohol Use Standard Drinks/Week Comments No 0 (1 standard drink = 0.6 oz pure alcoho l) Sex Assigned at Date Recorded Not on file documented as of this encounter Last Filed Vital Signs Vital Sign Reading Time Taken Comments Blood Pressure 120/55 04/09/2015 8:17 AM EDT Pulse 69 04/09/2015 8:17 AM EDT Temperature - - Respiratory Rate 18 04/09/2015 8:17 AM EDT Oxygen Saturation 95% 04/09/2015 8:17 AM EDT Inhaled Oxygen Concentration - - Weight - - Height - - Body Mass Index - - documented in this encounter Discharge Instructions Discharge InstructionsJonn Sellers RN - 04/09/2015 10:41 AM EDT You may have received medication before and/or during your procedure, which affects judgement and reaction time. Do not drive, operate machinery, drink alcoholic beverages, or make important decisions for 24 hours. Be careful on stairs, as you may be unsteady on your feet. You may eat a regular diet as tolerated. Do not smoke if you are alone. IV site -- slight redness, or tenderness is normal, you can use a warm compress. If tenderness and redness increases or foul drainage occurs, please contact your M. D. AttachmentsThe following attachments cannot be sent through Care Everywhere.EGD (UPPER ENDOSCOPY) : PEDIATRIC: POST-OP (SURINAMESE)COLON POLYPS (SURINAMESE)documented in this encounter Medications at Time of Discharge Medication Sig Dispensed Refills Start Date End Date levothyroxine Take 200 mcg by mouth 0 (SYNTHROID) 200 mcg daily. tablet rosuvastatin Take 20 mg by mouth 0 (CRESTOR) 20 mg daily. Reported on tablet 10/05/2016 Budesonide-Formoterol Inhale into the lungs 0 (SYMBICORT) 160-4.5 as needed. Reported on mcg/Actuation HFAA 10/05/2016 cetirizine (ZYRTEC) Take 10 mg by mouth 0 10 mg tablet daily as needed. Reported on 10/05/2016 lidocaine (LIDODERM) Place 3 patches onto 0 5 %(700 mg/patch) the skin every 12 hours. Reported on 10/05/2016 atenolol (TENORMIN) 75MG = 1 10/17 0 04/24/2007 50 mg tablet Tablet(s), PO, Once daily Blood Sugar Use one twice daily as 200 each 3 04/08/2015 1 11/16/2015 Diagnostic (ONETOUCH instructed Diag code ULTRA TEST) Strip 250.02 dicyclomine (BENTYL) Take 1 capsule by 120 capsule 6 015 09/11/2015 10 mg mouth every 6 hours as CapsuleIndications: needed. Diarrhea, Abdominal pain, unspecified abdominal location saccharomyces Take 1 capsule by 60 capsule 3 02/10/2015 10/0 04/2016 boulardii (FLORASTOR) mouth 2 times daily. 250 mg CapsuleIndications: Diarrhea, Abdominal bloating loperamide (IMODIUM Take 1 tablet by mouth 120 tablet 11 01/1509/15/2016 A-D) 2 mg Tablet 4 times daily as needed for Diarrhea. Maximum 16 mg in 24 hours insulin regular Inject 100 Units 20 mL 11 02/03/2015 CONCENTRATE U-500 subcutaneously 3 times (HUMULIN R U-500) 500 daily. unit/mL Solution gabapentin Take 1 capsule by 90 capsule 3 2015 016 (NEURONTIN) 100 mg mouth 3 times daily. Capsule Insulin Inject 1 each 100 Syringe 11 2015 03/22/2016 Syringe-Needle U-100 subcutaneously 3 times (BD INSULIN SYRINGE daily. Non name brand ULTRA-FINE) 0.3 mL 31 is ok x 02/28 Syringe levothyroxine Take 50 mcg by mouth 0 1 11/19/2018 (SYNTHROID) 50 mcg daily. tablet lisinopril Take 20 mg by mouth 0 09/15 (PRINIVIL;ZESTRIL) 40 daily. mg tablet potassium chloride Take 10 mEq by mouth 0 09/05/2016 (K-DUR) 10 mEq tablet daily. furosemide (LASIX) 20 Take 20 mg by mouth 0 09/05/2016 mg tablet daily. ONE TOUCH DELICA by [facility]Non-Drug; 0 09/15/2016 LANCETS MISC Combo Route) route 2 times daily. And PRN. nystatin-triamcinolon Apply topically 3 0 09/15/2016 e (MYCOLOG II) cream times daily. LEVALBUTEROL TARTRATE Inhale into the lungs 0 07/22/2016 (XOPENEX HFA INHL) every 6 hours as needed. ibuprofen Take 1 tablet by mouth 30 tablet 0 01/24/2012 (ADVIL;MOTRIN) 600 mg every 6 hours. tablet sertraline (ZOLOFT) Take 200 mg by mouth 0 05/25/2016 100 mg tablet daily. CALCIUM CARBONATE 0 04/24/2007 019 (TUMS ORAL) documented as of this encounter Progress Notes Rene Louis MD - 04/09/2015 3:00 PM EDT Ms. Guallpa woke up from monitored anesthesia care (propofol) for upper endoscopy and colonoscopy withcomplaint of pain in chect with deep breath and jaw pain. Discussed with anesthesia, due to body habitus and sleep apnea, required jaw thrust throughout much of colonoscopy for adequate ventilation andnoted to have fairly significant oral secretions. She was also noted to have swollen lip on right lower side attributed to pinch from oral airway and oral supplemental oxygen used during the colonoscopy. On exam she had swollen lower lip and course breath sounds with pleuritic chest pain worse with a deep breath and pain along neck and jaw line bilaterally. There was no crepitus. Supplemental nasal canula was continued in recovery and ice was applied to swollen lip, an ECG was done with NSR and nonspecific S/T wave changes. A portable chest xray showed likely left midlung atelectasis so she was sent for a PA and lateral film which showed some streaky left lung opacities which likely reflect atelectasis but no free air. Throughout observation in recovery, chest pain resolved, breathing improved and lip swelling was controlled with ice. By the afternoon she was awake, alert and feeling better, Stable gait, denied chestpain and asking to be discharged. She was discharged with her mother at 4:15 pm after tolerating clear liquids with stable vital signs. She was advised to call if any worsening pain or go straight to ED if chest pain recurs. Rene Louis MD [facility] [place] Gastroenterology Pager [phone] documented in this encounter H&P Notes Rene Louis MD - 04/09/2015 8:50 AM EDT Patient Name: Ruth Guallpa Patient Age: 50 y.o. Birthdate: 1965 Admit date: 04/09/2015 Attending Physician: Rene Louis MD Gastroenterology & Hepatology Pre-Procedure History and Physical Planned Procedure: EGD: Colonoscopy: Indication: diarrhea with gas and bloat Patient Active Problem List Diagnosis Code ??? Sleep apnea 780.57 ??? Morbid obesity 278.01 ??? Diabetes mellitus 250.00 ??? Fibromyalgia 729.1 ??? Paratubal cyst 620.8 ??? Hyperlipidemia 272.4 ??? Right knee pain 719.46 ??? Head injury, closed 959.01 ??? Neurodermatitis 698.3 ??? Clavus 700 ??? History of basal cell cancer V10.83 ??? Actinic keratosis 702.0 ??? Seborrheic keratosis 702.19 ??? Accessory ovary 752.0 ??? Chronic diarrhea 787.91 ??? Abdominal pain 789.00 Medications: Reviewed in EDH Allergies Allergen Reactions ??? Latex Rash ??? Amlodipine Other (See Comments) Suicidal thoughts ??? Imitrex [Sumatriptan Succinate] Suicidal thoughts ??? Lyrica [Pregabalin] Other (See Comments) Intolerance ??? Metformin Diarrhea ??? Prozac [Fluoxetine] Anxiety ??? Sulfa (Sulfonamide Antibiotics) ??? Tramadol Anxiety Social History/Family History: Reviewed in EDH. No changes Exam: Filed Vitals: 04/09/15 0817 BP: 120/55 Pulse: 69 Resp: 18 GEN: NAD, AAOX3 HEENT: NC/AT dryMM, anicteric Chest: CTAB Heart: RRR, nl s1, s2 Abdomen: normal bowel sounds, soft, non tender Assessment and Plan: Proceed with EGD: Colonoscopy: ASA Grade: ASA 3 - Patient with moderate systemic disease with functional limitations Mallampati: per anesthesia Sedation plan: Monitored Anesthesia Care Risks and benefits of the procedure were discussed with the patient. Consent has been signed. documented in this encounter Procedure Notes Jonn Sellers RN - 04/09/2015 7:08 PM EDT Pt d/ c to home at 1615, mother with pt.De. Louis and rAvin into see pt prior to d/c. Pt denies anychest pain. Still with sore lip, instructed to continue with ice to lip throughout tonight and to call if any issues. Pt tolerated po fluids and had steady gait. Jonn Sellers RN Endo [phone] Jonn Sellers RN - 04/09/2015 1:54 PM EDT Received pt in recovery around 1020, immediately c/o right lower lip pain, lip swollen, ice applied.Still now has some edema but less. While pt recovering, c/o substernal chest pain 6 at 1050, reported to anesthesia, Dr. Haque and toDr. Louis. Stat EKG ordered and done. MD's aware. Pt also had portable chest xray, results showed some abnormal finding/possible positioning from protable, so pt sent to xr at 1351 for uprighgt PA andlateral. Pt denies pain or discomfort at rest. Cont with c/o lip pain, ice remains and pt instructedto keep icing remainder of today. O2 sat now on ra 91-95% Jonn Sellers RN Endo [phone] documented in this encounter Plan of Treatment Not on filedocumented as of this encounter Procedures Procedure Name Priority Date/Time Associated Diagnosis Comme nts XR CHEST PA AND Routine 04/09/2015 2:12 PM Result s for this LATERAL EDT procedure are i n the results section. XR CHEST ONE VIEW Routine 04/09/2015 11:28 Result s for this AM EDT procedure are i n the results section. EKG 12-LEAD Routine 04/09/2015 11:07 Chest tightness or Resul ts for this AM EDT pressure procedure are i n the results section. SURGICAL PATHOLOGY Routine 04/09/2015 10:21 Resul ts for this REPORT AM EDT procedure are i n the results section. SPECIMEN TO Routine 04/09/2015 10:21 Results for this PATHOLOGY AM EDT procedure are i n the results section. SPECIMEN TO Routine 04/09/2015 10:21 Results for this PATHOLOGY AM EDT procedure are i n the results section. SPECIMEN TO Routine 04/09/2015 10:21 Results for this PATHOLOGY AM EDT procedure are i n the results section. SPECIMEN TO Routine 04/09/2015 10:21 Results for this PATHOLOGY AM EDT procedure are i n the results section. COLONOSCOPY 04/09/2015 8:52 AM Diarrhea FLEXIBLE, WITH BX EDT Fecal incontin ence (WRVU 3.66) Abdominal pain, unspecified abdominal location COLONOSCOPY, 04/09/2015 8:52 AM Diarrhea POLYPECTOMY, REMOVAL EDT Fecal incon tinence LESION BY SNARE Abdominal pain, (WRVU 4.67) unspecified abdominal location EGD WITH BIOPSY 04/09/2015 8:52 AM Diarrhea (WRVU 2.49) EDT Fecal incontinen ce Abdominal pain, unspecified abdominal location UPPER GI ENDOSCOPY Routine 04/09/2015 8:41 AM Res ults for this EDT procedure are i n the results section. COLONOSCOPY Routine 04/09/2015 8:40 AM Results f or this EDT procedure are i n the results section. documented in this encounter Results XR chest routine PA & lateral (04/09/2015 2:12 PM EDT) Anatomical Region Laterality Modality Chest N/A Radiographic Imaging Specimen (Source) Anatomical Collection Method Collection Time Re ceived Time Location / / Volume Laterality 04/09/2015 2:12 PM EDT Impressions 04/09/2015 2:35 PM EDT IMPRESSION: Streaky left mid to lower lung opacities that may reflect areas of atelectasis, but other etiologies such a s aspiration pneumonitis cannot be excluded. Consider radiographic follow-u p of confirmation for stability versus interval change after empiric treatment. Narrative 04/09/2015 2:35 PM EDT EXAMINATION: CHEST ROUTINE 2 VIEWS CLINICAL HISTORY: chest pressure, initia l portable showed abn TECHNIQUE: PA and lateral views of the c hest. 04/09/2015 1400 hours. COMPARISON: 04/09/2015 AP portable chest radiograph 1120 hours. FINDINGS: The right lung appears clear. Better demonstrated than on the portable radiograph are several streaky opacities in the left mid to lower lung, the lowest-most opacity slightly more patchy in appearance. No pleural effusion is seen. Cardiac silhouette and vascular ma rkings appear within normal limits. No significant osseous findings. Procedure Note Tisha Corrigan MD - 04/09/2015Formatt ing of this note might be different from the original. EXAMINATION: CHEST ROUTINE 2 VIEWS CLINICAL HISTORY: chest pressure, initia l portable showed abn TECHNIQUE: PA and lateral views of the c hest. 04/09/2015 1400 hours. COMPARISON: 04/09/2015 AP portable chest radiograph 1120 hours. FINDINGS: The right lung appears clear. Better demonstrated than on the portable radiograph are several streaky opacities in the left mid to lower lung, the lowest-most opacity slightly more patchy in appearance. No pleural effusion is seen. Cardiac silhouette and vascular ma rkings appear within normal limits. No significant osseous findings. IMPRESSION IMPRESSION: Streaky left mid to lower ashley ng opacities that may reflect areas of atelectasis, but other etiologies such a s aspiration pneumonitis cannot be excluded. Consider radiographic follow-u p of confirmation for stability versus interval change after empiric treatment. Rene Louis MD IMG DX ORDERABLES XR chest PA or AP- 1 view (04/09/2015 11:28 AM EDT) Anatomical Region Laterality Modality Chest N/A Radiographic Imaging Specimen (Source) Anatomical Collection Method Collection Time Re ceived Time Location / / Volume Laterality 04/09/2015 11:28 AM EDT Impressions 04/09/2015 11:44 AM EDT IMPRESSION: No pneumothorax, pneumomediastinum, or pneumoperitoneum identified. Equivocal minimal left midlung opacity, question minimal atelectasis or focal aspiration pneumonitis. Consider upright PA and lateral, when able, to confirm or refute. Narrative 04/09/2015 11:44 AM EDT EXAMINATION: CHEST ONE VIEW/XPORT CLINICAL HISTORY: chest pain, r/o free a ir TECHNIQUE: Portable AP chest radiograph on ??04/09/2015 at 1120 hours. COMPARISON: 01/23/2012. FINDINGS: Slightly low lung volumes are shallow inspiration. No pneumothorax is seen. No free air under the diaphragm id entified. No pneumomediastinum seen. No appreciable pleural effusion. Right lung appears clear. Question minimal hazy opacity in the left midlung unchanged ca rdiomediastinal silhouette and vascular markings. Procedure Note Tisha Corrigan MD - 04/09/2015Formatt ing of this note might be different from the original. EXAMINATION: CHEST ONE VIEW/XPORT CLINICAL HISTORY: chest pain, r/o free a ir TECHNIQUE: Portable AP chest radiograph on 04/09/2015 at 1120 hours. COMPARISON: 01/23/2012. FINDINGS: Slightly low lung volumes are shallow inspiration. No pneumothorax is seen. No free air under the diaphragm id entified. No pneumomediastinum seen. No appreciable pleural effusion. Right lung appears clear. Question minimal hazy opacity in the left midlung unchanged ca rdiomediastinal silhouette and vascular markings. IMPRESSION IMPRESSION: No pneumothorax, pneumomedia stinum, or pneumoperitoneum identified. Equivocal minimal left midlung opacity, question minimal atelectasis or focal aspiration pneumonitis. Consider upright PA and lateral, when able, to confirm or refute. Rene Louis MD IMG DX ORDERABLES EKG 12 Lead (04/09/2015 11:07 AM EDT) Component Value Ref Range Test Analysis Performed Pathologis t Method Time At Signature Ventricular rate 64 BPM MUSE SYSTEM Atrial Rate 64 BPM MUSE SYSTEM P-R Interval 168 ms MUSE SYSTEM QRS Duration 80 ms MUSE SYSTEM Q-T Interval 428 ms MUSE SYSTEM QTC Calculated 441 ms MUSE SYSTEM (Bezet) Calculated P [place] 50 degrees MUSE SYSTEM Calculated R [place] 27 degrees MUSE SYSTEM Calculated T [place] 15 degrees MUSE SYSTEM INTERPRETATION Normal sinus rhythm MUSE SYSTEM Nonspecific ST and T wave abnormality Abnormal ECG No previous ECGs available Confirmed by MD Mine, Dat ([id number]) on 04/09/2015 4:58:50 PM Specimen Anatomical Collection Method Collection Time Receive d Time (Source) Location / / Volume Laterality 04/09/2015 11:07 04/09/2015 4:58 AM EDT PM EDT Rene Louis MD ECG ORDERABLES Performing Organization Address City/State/ZIP Code Phon e Number MUSE SYSTEM Surgical Pathology Report (04/09/2015 10:21 AM EDT) Component Value Ref Test Analysis Performed At Patholo gist Range Method Time Signature Surgical [facility] ? [facility] MILLENNIUM Report ? Provider: ?? RENE LOUIS ??Pt. Name: ?? RUTH GUALLPA ?Y ? Acc #: ?[id number] ?Pt. MRN: ?[id number] ? Col Date: ?? 5 ? /Sex: ?1965,(50 years),Female ? Rec Date: ?? 04/09/2015 ? LOC: ?4T ? SURGICAL PATHOLOGY ? ---Pathologic Diagnosis--- ? A - Gastric antrum/body, biopsy: ? - Patchy mild chronic active gastritis. ? - Immunostaining for H. pylori is negative. ? B - Distal transverse colon, polypectomy: ? - Fragments of tubular adenoma. ? C - Ascending colon, polypectomy: ? - Fragments of sessile serrated polyp/adenoma. ? D - Random colon, biopsy: ? - Focal active colitis, nonspecific. ? CR-0, CR-PX ? 04/13/15 ? [facility] ? 04/14/15 Verified by: ? Cabrera Tao MD ? Pathologist ? (Electronic Si gnature) ? The attending pathologist whose signature appears o n this report has ? reviewed all diagnostic slides and has edited the evita ss and/or ? microscopic portion of the report in rendering the fi nal pathologic ? diagnosis. ? ---Microscopic Description--- ? Immunohistochemistry Studies: ? Formalin-fixed, paraffin-embedded tissue sections are studied using the ? polymer technique wit h appropriate positive and negative controls. ??These ? IHC studies provide [facility] pathologist with adjunctive diagnostic information. ? Antibody specificity has been verified by testing antibodies on a series of ? in-house tissues with known immunohistochemical perfo rmance ? characteristics. The clinical interpretation of any antibody positive ? staining or its absence is evaluated within the tea xt of clinical ? presentation, morphol ogy, histopathological criteria and other diagnostic ? tests. ? Block ?Antibody ? Result (Posi tive/Negative) ? A1 ? H. pylori ?Negative ? [facility] ? Provider: ?? RENE LOUIS ??Pt. Name: ?? RUTH GUALLPA ?Y ? Acc #: ?[id number] ?Pt. MRN: ?[id number] ? Col Date: ?? 201 5 ? /Sex: ?1965,(50 years),Female ? Rec Date: ?? 04/09/2015 ? LOC: ?4T ? ---Gross Description--- ? A - Labeled/Fixative: Gastric antrum/body with erythe ma, formalin. ? SURGICAL PATHOLOGY ? Quantity/Size: Four, averaging 0.3 cm. ? Tissue Description: Soft, mak tissue. ? Sections/Processing: (T1) ? B - Labeled/Fixative: Small 5 mm polyp in distal transverse, formalin. ? Quantity/Size: Two, 0.2 and 0.4 cm. ? Tissue Description: Soft, mak tissue. ? Sections/Processing: (T1) ? C - Labeled/Fixative: Large flat polyp in ascen ding colon, hot snare, ? piecemeal, formalin. ? Quantity/Size: Multiple, ranging 0.1-0.8 cm. ? Tissue Description: Soft, mak-pink tissue. ? Sections/Processing:(1-3) smaller tissue; (4-5) larger tissue inked and ? bisected. (T5) ? D - Labeled/Fixative: Random colon, normal mucosa, fo rmalin. ? Quantity/Size: Multiple, averaging 0.3 cm. ? Tissue Description: Soft, mak tissue. ? Sections/Processing: (T3) ??aee ? ---Clinical Information--- ? Specimen Submitted: ? A - Gastric antrum/body with erythema ? B - Small 5 mm polyp in distal transverse ? C - Large flat polyp in ascending colon, hot snare, p iecemeal ? D - Random colon, normal mucosa ? Clinical History: ? Chronic diarrhea, change in bowels ? Clinical Diagnosis: ? Same. Specimen (Source) Anatomical Collection Method Collection Time Re ceived Time Location / / Volume Laterality 04/09/2015 10:21 AM EDT Rene Luois MD PATHOLOGY/CYTOLOGY ORDERABLE S Performing Organization Address [facility]/ZIP Code Phon e Number [address] CERNER MILLENNIUM Specimen to Pathology (surgical or derm) (04/09/2015 10:21 AM EDT) Specimen Anatomical Collection Method Collection Time Receive d Time (Source) Location / / Volume Laterality AP Specimen 04/09/2015 10:21 04/09/2015 AM EDT 10:21 AM EDT Narrative CERNER MILLENNIUM - 04/09/2015 10:21 AM EDT Specimen requisition ordered. ??Separate Pathology report to follow Rene Louis MD PATHOLOGY/CYTOLOGY ORDERABLE S Performing Organization Address [facility]/ZIP Code Phon e Number [address] CERNER MILLENNIUM Specimen to Pathology (surgical or derm) (04/09/2015 10:21 AM EDT) Specimen Anatomical Collection Method Collection Time Receive d Time (Source) Location / / Volume Laterality AP Specimen 04/09/2015 10:21 04/09/2015 AM EDT 10:21 AM EDT Narrative CERNER MILLENNIUM - 04/09/2015 10:21 AM EDT Specimen requisition ordered. ??Separate Pathology report to follow Rene Louis MD PATHOLOGY/CYTOLOGY ORDERABLE S Performing Organization Address City/[facility]/[place] [address] CERNER MILLENNIUM Specimen to Pathology (surgical or derm) (04/09/2015 10:21 AM EDT) Specimen Anatomical Collection Method Collection Time Receive d Time (Source) Location / / Volume Laterality AP Specimen 04/09/2015 10:21 04/09/2015 AM EDT 10:21 AM EDT Narrative CERNER MILLENNIUM - 04/09/2015 10:21 AM EDT Specimen requisition ordered. ??Separate Pathology report to follow Rene Louis MD PATHOLOGY/CYTOLOGY ORDERABLE S Performing Organization Address City/State/[place] [address] [facility] Specimen to Pathology (surgical or derm) (04/09/2015 10:21 AM EDT) Specimen Anatomical Collection Method Collection Time Receive d Time (Source) Location / / Volume Laterality AP Specimen 04/09/2015 10:21 04/09/2015 AM EDT 10:21 AM EDT Narrative [facility] - 04/09/2015 10:21 AM EDT Specimen requisition ordered. ??Separate Pathology report to follow Rene Louis MD PATHOLOGY/CYTOLOGY ORDERABLE S Performing Organization Address City/[facility]/ZIP Code Phon e Number [address] [facility] UPPER GI ENDOSCOPY (04/09/2015 8:41 AM EDT) Component Value Ref Test Analysis Performed At [facility] Range Method Time Signature UPPER GI [facility] ENDOSCOPY Endoscopy Patient Name: Ruth Guallpa ? Procedure Date: 04/09/2015 8:41 AM ? Date of : 1965 ? Age: 50 ? Order #: [id number] ? Procedure: ? Upper GI endoscopy Indications: ? Abdominal bloating, Diarrhea Providers: ? Rene Louis, Etta Smalls MD: ?Zhanna Francois Requesting Provider: Lotus Busby NP Medicines: ? Monitored Anesthesia Care Complications: ? No immediate complications. Procedure: ? Pre-Anesthesia Assessment: ? - Prior to the procedure, a H istory ? and Physical was performed, a nd ? patient medications and aller gies ? were reviewed. The patient is ? competent. The risks and bene fits of ? the procedure and the sedatio n ? options and risks were discus sed with ? the patient. All questions we re ? answered and informed consent was ? obtained. Patient identificat ion and ? proposed procedure were verif ied by ? the physician, the nurse, the ? design/animation instructor and the technicia n in the ? pre-procedure area in the pro cedure ? room. Mental Status Examinati on: ? normal. Airway Examination: ? small/crowded oropharyngeal a irway ? and Mallampati Class II (the uvula ? but not tonsillar pillars ? visualized). Respiratory Exam ination: ? clear to auscultation. CV ? Examination: normal. Prophyla ctic ? Antibiotics: The patient does not ? require prophylactic antibiot ics. ? Prior Anticoagulants: The pat ient has ? taken no previous anticoagula nt or ? antiplatelet agents. ASA Grad e ? Assessment: III - A patient w ith ? severe systemic disease. Afte r ? reviewing the risks and benef its, the ? patient was deemed in satisfa ctory ? condition to undergo the proc edure. ? The anesthesia plan was to us e ? monitored anesthesia care (MA C). ? Immediately prior to administ ration ? of medications, the patient w as ? re-assessed for adequacy to r eceive ? sedatives. The heart rate, ? respiratory rate, oxygen satu rations, ? blood pressure, adequacy of p ulmonary ? ventilation, and response to care ? were monitored throughout the ? procedure. The physical statu s of the ? patient was re-assessed after the ? procedure. ? The procedure, indications, b enefits, ? risks and alternatives were e xplained ? to the patient. Specifically ? discussed were potential ? complications including, but not ? limited to, bleeding, perfora tion, ? infection, missing a cancer, and ? adverse medication reactions. The ? Endoscope was introduced thro h the ? mouth, and advanced to the ird part ? of duodenum. The patient tole rated ? the procedure well. The upper GI ? endoscopy was somewhat diffic ult due ? to the patient's body habitus . ? Successful completion of the ? procedure was aided by perfor esperanza ? chin lift. The patient tolera jm the ? procedure. ? Findings: ? The examined esophagus was normal. ? The Z-line was regular and was found 37 cm from the ? incisors. ? A hiatus hernia was found. The proximal extent of the ? gastric folds (end of tubular esophagus) was 37 cm ? from the incisors. The hiatal narrowing was 41 cm ? from the incisors. The Z-line was 37 cm from the ? incisors. There was focal erythematous mucosa in the ? area of the diaphragmatic pinch which could be ? indicative of irritation from sliding hiatal hernia. ? Diffuse mildly erythematous mucosa without bleeding ? was found in the entire examined stomach. Biopsies ? were taken with a cold forceps for histology. ? The examined duodenum was normal. ? Impression: ?- Normal esophagus. ? - Z-line regular, 37 cm from the ? incisors. ? - Hiatus hernia. ? - Erythematous mucosa in the stomach. ? Biopsied. ? - Normal examined duodenum. Recommendation: ?- Await pathology results. ? - Proceed with colonoscopy ? Attending Participation: ? I personally performed the entire procedure. ? Rene Louis, 04/09/2015 9:14 AM Number of Addenda: 0 Note Initiated On: 04/09/2015 8:41 AM Specimen (Source) Anatomical Collection Method Collection Time Re ceived Time Location / / Volume Laterality 04/09/2015 8:41 AM EDT Zhanna Francois APRN GENERAL SURGICAL ORDERABLES Performing Organization Address City/State/ZIP Code Phon e Number [facility] COLONOSCOPY (04/09/2015 8:40 AM EDT) [facility] gist Method Time Signature COLONOSCOPY [facility] PR[facility] Endoscopy Patient Name: Ruth Guallpa ? Procedure Date: 04/09/2015 8:40 AM ? Date of : 1965 ? Age: 50 ? Order #: [id number] ? Procedure: ? Colonoscopy Indications: ? Chronic diarrhea, Change in bowel ? habits Providers: ? Verona Garcia R N Referring MD: ?Louts Swan, ROGE Medicines: ? Monitored Anesthesia Care Complications: ? No immediate complications. Procedure: ? Pre-Anesthesia Assessment: ? - Prior to the procedure, a H istory ? and Physical was performed, a nd ? patient medications and aller gies ? were reviewed. The patient is ? competent. The risks and bene fits of ? the procedure and the sedatio n ? options and risks were discus sed with ? the patient. All questions we re ? answered and informed consent was ? obtained. Patient identificat ion and ? proposed procedure were verif ied by ? the physician, the nurse, the ? design/animation instructor and the technicia n in the ? pre-procedure area in the pro cedure ? room. Mental Status Examinati on: ? normal. Airway Examination: ? Mallampati Class II (the uvul a but ? not tonsillar pillars visuali zed). ? Respiratory Examination: natalya r to ? auscultation. CV Examination: normal. ? Prophylactic Antibiotics: The patient ? does not require prophylactic ? antibiotics. Prior Anticoagul ants: ? The patient has taken no prev ious ? anticoagulant or antiplatelet agents. ? ASA Grade Assessment: III - A patient ? with severe systemic disease. After ? reviewing the risks and benef its, the ? patient was deemed in satisfa ctory ? condition to undergo the proc edure. ? The anesthesia plan was to us e ? monitored anesthesia care (MA C). ? Immediately prior to administ ration ? of medications, the patient w as ? re-assessed for adequacy to r eceive ? sedatives. The heart rate, ? respiratory rate, oxygen satu rations, ? blood pressure, adequacy of p ulmonary ? ventilation, and response to care ? were monitored throughout the ? procedure. The physical statu s of the ? patient was re-assessed after the ? procedure. ? The procedure, indications, b enefits, ? risks and alternatives were e xplained ? to the patient. Specifically ? discussed were potential ? complications including, but not ? limited to, bleeding, perfora tion, ? infection, missing a cancer, and ? adverse medication reactions. The ? patient was placed in the lef t ? lateral decubitus position, a nd a ? digital rectal exam was perfo rmed. ? The Colonoscope was inserted in the ? anus and under direct visuali zation, ? advanced to the terminal ileu m, with ? identification of the appendi ceal ? orifice and IC valve. Careful ? inspection was made as the ? colonoscope was withdrawn. Th e ? colonoscopy was technically d ifficult ? and complex due to inadequate bowel ? prep, the patient's body habi tus and ? the patient's oxygen desatura tion. ? Successful completion of the ? procedure was aided by nik hooper ? abdominal pressure, lavage, ? performing chin lift and ? administering oxygen. The pat ient ? tolerated the procedure. The terminal ? ileum, the ileocecal valve an d the ? rectum were photographed. Sco pe ? withdrawal time was 30 minute s. ? Findings: ? The digital rectal exam findings include decreased ? sphincter tone. ? A 5 mm polyp was found at the splenic flexure. The ? polyp was sessile. The polyp was removed with a cold ? snare. Resection and retrieval were complete. ? Verification of patient identification for the ? specimen was done by the physician and nurse. ? A 25 mm polyp was found in the proximal ascending ? colon with a difficult location between two folds. ? The polyp was flat. The polyp was removed with a ? piecemeal technique using a hot snare. Resection and ? retrieval were complete. Verification of patient ? identification for the specimen was done by the ? physician and nurse. ? The exam was otherwise normal throughout the examined ? colon. ? The terminal ileum appeared normal. ? Biopsies were taken with a cold forceps in the ? sigmoid colon, in the descending colon, in the ? transverse colon and in the ascending colon for ? histology. Verification of patient identification for ? the specimen was done by the physician and nurse ? using the patient's name, date and medical ? record number. Estimated blood loss was minimal. ? Impression: ?- Decreased sphincter tone found o n ? digital rectal exam. ? - One 5 mm polyp at the splen ic ? flexure. Resected and retriev ed. ? - One 25 mm polyp in the prox imal ? ascending colon. Resected and ? retrieved. ? - The examined portion of the ileum ? was normal. ? - Biopsies were taken with a cold ? forceps for histology in the sigmoid ? colon, in the descending colo n, in ? the transverse colon and in t he ? ascending colon. Recommendation: ?- Await pathology results. ? - Return to GI clinic as prev iously ? scheduled. ? - Repeat colonoscopy for surv eillance ? based on pathology results. Mary patrick ? inadequate prep for screening ? purposes, will need two day ? colonoscopy prep and again wi th ? anesthesia, likely in 6-12 mo nths ? pending pathology results. ? Attending Participation: ? I personally performed the entire procedure. ? Rene Heriberto 04/09/2015 10:22 AM Number of Addenda: 0 Note Initiated On: 04/09/2015 8:40 AM Specimen (Source) Anatomical Collection Method Collection Time Re ceived Time Location / / Volume Laterality 04/09/2015 8:40 AM EDT Zhanna ESTEBAN SURGICAL ORDERABLES Performing Organization Address City/State/ZIP Code Phon e Number PROVATION documented in this encounter Visit Diagnoses Diagnosis Chest tightness or pressure Other chest pain documented in this encounter Care Teams Supervisor Roller Printing Relationship Specialty Start Date End Date Zhanna Francois APRN PCP - General 01/27/15 05/15/19 documented as of this encounter
--- OUTSIDE RECORDS SUMMARY | 2022-09-16 12:30 | XMS_ITS | Encounter Summary ---
:1965 Author Organization [facility] [place] [address] Care Team Providers Name Role Phone Zhanna Francois APRN Primary Care Provider Reason for Visit Reason Onset Date Comments Medication Refill 03/20/2015 Encounter Details Date Type Department Care Team Description 03/20/2015 Refill Endocrinology at [facility] Lluvia Rios EARTH SCIENCE PROFESSOR [facility] [place] [address] ENDOCRINOLOGY DEPT. [phone] [place], [place] [address] (Wo rk) Social History Tobacco Use Types Packs/Day Years Used Date Smoking Tobacco: Never Smokeless Tobacco: Never Alcohol Use Standard Drinks/Week Comments No 0 (1 standard drink = 0.6 oz pure alcoho l) Sex Assigned at Date Recorded Not on file documented as of this encounter Miscellaneous Notes Telephone Encounter - Gina Urias RN - 03/20/2015 1:51 PM EDT Received faxed in renewal request from Sherif Adams for One touch ultra test strips. documented in this encounter Plan of Treatment Not on filedocumented as of this encounter Visit Diagnoses Not on filedocumented in this encounter Care Teams Special Events Driver Relationship Specialty Start Date End Date Zhanna Francois APRN PCP - General 01/27/15 05/15/19 documented as of this encounter
--- OUTSIDE RECORDS SUMMARY | 2022-09-16 12:30 | XMS_ITS | Encounter Summary ---
:1965 Author Organization [facility] [place] [address] Care Team Providers Name Role Phone Zhanna Francois APRN Primary Care Provider Encounter Details Date Type Department Care Team Description 05/01/2015 Telephone [place]ology [place] [facility] Lotus Busby APRN [facility] [place] [address] [place] [id number] [phone] (Wo rk) Social History Tobacco Use Types Packs/Day Years Used Date Smoking Tobacco: Never Smokeless Tobacco: Never Alcohol Use Standard Drinks/Week Comments No 0 (1 standard drink = 0.6 oz pure alcoho l) Sex Assigned at Date Recorded Not on file documented as of this encounter Miscellaneous Notes Telephone Encounter - Lotus Busby APRN - 05/01/2015 8:21 AM EDT Attempted to contact patient re: colonoscopy/EGD results but no answer and left a message with call back number. documented in this encounter Plan of Treatment Not on filedocumented as of this encounter Visit Diagnoses Not on filedocumented in this encounter Care Teams Certified Bench Jeweler Technician Relationship Specialty Start Date End Date Zhanna Francois APRN PCP - General 01/27/15 05/15/19 documented as of this encounter
--- OUTSIDE RECORDS SUMMARY | 2022-09-16 12:30 | XMS_ITS | Encounter Summary ---
:1965 Author Organization [facility] [place] [address] Care Team Providers Name Role Phone Sirena Rossi Eligio MOLINA Primary Care Provider Reason for Visit Reason Onset Date Comments Diabetes 06/12/2012 Encounter Details Date Type Department Care Team Description 06/12/2012 Telephone Endocrinology at [facility] [place] [address] Social History Tobacco Use Types Packs/Day Years Used Date Smoking Tobacco: Never Smokeless Tobacco: Never Alcohol Use Standard Drinks/Week Comments No 0 (1 standard drink = 0.6 oz pure alcoho l) Sex Assigned at Date Recorded Not on file documented as of this encounter Miscellaneous Notes Telephone Encounter - Lluvia Vargas APRN - 06/13/2012 5:46 PM EDT SYSTEMS ENGINEERING MANAGER called pt to review glucose results. Majority are above target ranges Is taking lantus 60 units AM and PM Is taking novolog 40 units before meals 3X/day and up to 25 units before snacks once or twice daily. Advised to increase lantus doses to 62 units and to increase by 2 units weekly until FBG is < 120 May need to increase novolog doses by 2-4 units to reach target glucose <130 before meals Pt desires gastric bypass surgery. Advised that HGBA1C needs to get closer to 8% range for better healing. Telephone Encounter - Shanta Lopez LPN - 06/12/2012 11:46 AM EDT Ysabel from PCP office calls asking for clarification on patient's insulin doses both Lantus and Novolog Forward to Lluvia for doses. Clarification to be faxed to [phone] documented in this encounter Plan of Treatment Not on filedocumented as of this encounter Visit Diagnoses Not on filedocumented in this encounter Care Teams Bolt Loader Relationship Specialty Start Date End Date Sirena Rossi APRN PCP - General 09/23/10 01/26/15 MARY [address] [place] [address] documented as of this encounter
--- OUTSIDE RECORDS SUMMARY | 2022-09-16 12:30 | XMS_ITS | Encounter Summary ---
:1965 Author Organization [facility] [address] Care Team Providers Name Role Phone Alessandro [place] Jhonny MOLINA Primary Care Provider Encounter Details Date Type Department Care Team Description 05/05/2015 Telephone Gastroenterology at [facility] Lotus Busby APRN [facility] [address] [place] [address] [phone] (Wo rk) Social History Tobacco Use Types Packs/Day Years Used Date Smoking Tobacco: Never Smokeless Tobacco: Never Alcohol Use Standard Drinks/Week Comments No 0 (1 standard drink = 0.6 oz pure alcoho l) Sex Assigned at Date Recorded Not on file documented as of this encounter Miscellaneous Notes Telephone Encounter - Lotus Busby APRN - 05/05/2015 9:18 AM EDT Contacted Mrs Galeana regarding the results of her EGD and colonoscopy. EGD showed a normal esophagus,Z-line regular, moderate sized HH, erythema of stomach and normal duodenum. Path: Gastric antrum: patchy mild chronic active gastritis. Her colonoscopy revealed normal terminal ileum; inadequate prep for screening purposes, two polyps~5 mm splenic flexure (TA) and 25 mm polyp at proximal ascending colon (sessile serrated/adenoma). Random colonic bx focal active colitis nonspecific. Discussed that random colonic bx are non specific and could be d/t viral infection. Reviewed path with Dr Louis who recommended obtain stool studies and have ordered Lactoferrin and Calprotectin. Havealso ordered fecal fat qualitative, elastase, giardia/crypto and C&S. Recommend ESR and CRP. Will have orders faxed to [facility]. Will see pt for GIF on 05/27. Consider repeating colonoscopy in 3-6 months. Await results of stool studies. Consider MRE. I did my best to answer all of her questions. She is experiencing heartburn most days. Discussed trying a PPI and have ordered Prilosec 20 mg on an empty stomach 30 minutes before breakfast. documented in this encounter Plan of Treatment Not on filedocumented as of this encounter Visit Diagnoses Diagnosis Gastroesophageal reflux disease without esophagitis Esophageal reflux Diarrhea documented in this encounter Care Teams Environmental Specialist Relationship Specialty Start Date End Date Zhanna Francois APRN PCP - General 01/27/15 05/15/19 documented as of this encounter
--- OUTSIDE RECORDS SUMMARY | 2022-09-16 12:30 | XMS_ITS | Encounter Summary ---
:1965 Author Organization [facility] [address] Care Team Providers Name Role Phone Sirena Rossi APRN Primary Care Provider Reason for Visit Reason Comments Follow-up Encounter Details Date Type Department Care Team Description 08/18/2014 [facility] [place] [facility] (Primary Dx) [address] [facility] [address] [place], [place] DERMATOLOGY [address] [place], [place] [phone] [id number] Social History Tobacco Use Types Packs/Day Years Used Date Smoking Tobacco: Never Smokeless Tobacco: Never Alcohol Use Standard Drinks/Week Comments No 0 (1 standard drink = 0.6 oz pure alcoho l) Sex Assigned at Date Recorded Not on file documented as of this encounter Patient Instructions Patient InstructionsNickie Luna LPN - 08/18/2014 5:03 PM EST Images from the original note were not included. [facility] Warts: After Your Visit Your Care Instructions A wart is a harmless skin growth caused by a virus. The virus makes the top layer of skin grow quickly, causing a wart. Warts usually go away on their own in months or years. There are several types ofwarts. Common warts appear most often on the hands, but they may be anywhere on the body. Plantar warts occur on the soles of the feet and may cause pain when you walk. Warts spread easily. You can reinfect yourself by touching the wart and then touching another part of your body. You can infect others by sharing towels, razors, or other personal items. Most warts do not need treatment and go away on their own. But if warts cause pain or spread, your doctor may recommend that you use an khfm-cil-tswozka treatment. These include salicylic acid or duct tape. Or your doctor may prescribe a stronger medicine to put on warts or may inject them with medicine. The doctor also can remove warts through surgery or by freezing them. Follow-up care is a gregory part of your treatment and safety. Be sure to make and go to all appointments, and call your doctor if you are having problems. It???s also a good idea to know your test resultsand keep a list of the medicines you take. How can you care for yourself at home? For common warts ?? Use salicylic acid or duct tape as your doctor directs. You put the medicine or the tape on a wart for several days and then file down the skin on the wart. You use the salicylic acid treatmentfor 2 to 3 months or the tape for 1 to 2 months. ?? If your doctor prescribes medicine to put on warts, use it exactly as directed. Call your doctor if you think you are having a problem with your medicine. For plantar (foot) warts ?? Wear comfortable shoes and socks. Avoid high heels and shoes that put a lot of pressure on your foot. ?? Pad the wart with doughnut-shaped felt or a moleskin patch. You can buy these at a drugstore. Putthe pad around the plantar wart so that it relieves pressure on the wart. You also can place pads orcushions in your shoes to make walking more comfortable. ?? Take an niie-jst-lfdpabz pain medicine, such as acetaminophen (Tylenol), ibuprofen (Advil, Motrin), or naproxen (Aleve). Read and follow all instructions on the label. ?? Do not take two or more pain medicines at the same time unless the doctor told you to. Many pain medicines have acetaminophen, which is Tylenol. Too much acetaminophen (Tylenol) can be harmful. To avoid spreading warts ?? Keep warts covered with a bandage or athletic tape. ?? Do not bite your nails or cuticles. This may spread warts from one finger to another. When should you call for help? Call your doctor now or seek immediate medical care if: ?? You have signs of infection, such as: ?? Increased pain, swelling, warmth, or redness. ?? Red streaks leading from a wart. ?? Pus draining from a wart. ?? A fever. Watch closely for changes in your health, and be sure to contact your doctor if: ?? You have a new growth and you are not sure it is a wart. ?? You still have warts after 2 to 3 months of jsgw-ehu-fcwubzy treatment. ?? Your warts are growing or spreading quickly, even with treatment. ?? You cannot walk without pain because of a plantar wart. ?? You do not get better as expected. Where can you learn more? Visit our health information library at [email or web address] You can also view health information on [employer], your personal patient account. Log in or sign up today. Enter K886 in the search box to learn more about Warts: After Your Visit. ?? [phone] [employer]. Care instructions adapted under license by [facility]. This care instruction is for use with your licensed healthcare professional. If you have questionsabout a medical condition or this instruction, always ask your healthcare professional. [employer] disclaims any warranty or liability for your use of this information. Content Version: 9.9.778475; Last Revised: May 21, 2013 documented in this encounter Progress Notes Jef Stauffer MD - 08/18/2014 5:21 PM EST Problem: Followup of neurodermatitis. Ruth Perez follows up today with her daughter, Jennifer. She states that she has seen significant improvement after the Kenalog injection. She was then also using the clobetasol scalp solution, which she could tolerate for her itchy skin on her forearms, because it is not heavy and not greasy. Physical examination reveals that, instead of having numerous erythematous excoriated papules over the dorsal forearms and hands bilaterally, now she just has a few that remain, perhaps a fifth of what was there almost two months ago. Assessment and Plan: 1. Neurodermatitis. a. Today, again injected remaining sites with intralesional Kenalog, 5 mg/mL, 2 mL injected. b. May DC clobetasol scalp solution and instead use a good emolliating lotion. She uses Lotriderm at home and would recommend that she use this on a b.i.d. basis. c. Keep fingernails trimmed down. Today, they appear to be a bit long, so I advised her to cut them back so that she cannot inadvertently dig and scratch at her skin. 2. Dry skin of legs. a. Has an almost ichthyosis-like appearance. b. Recommended good emolliating cream, ideally one with lactic acid. Patient prefers homeopathic and natural type products. Discussed the need for ongoing treatment to control this. c. Return to clinic here will be p.r.n. COPY: Matias Russell M.D. documented in this encounter Plan of Treatment Not on filedocumented as of this encounter Visit Diagnoses Diagnosis Neurodermatitis - Primary Lichenification and lichen simplex chron icus documented in this encounter Care Teams Dental Nurse Relationship Specialty Start Date End Date Sirena Rossi APRN PCP - General 09/23/10 01/26/15 ALEJANDRO [address] [facility] [place] [address] documented as of this encounter
--- OUTSIDE RECORDS SUMMARY | 2022-09-16 12:30 | XMS_ITS | Encounter Summary ---
:1965 Author Organization [facility] Address [address] [place] [address] Care Team Providers Name Role Phone Sarah Francoisine Jhonny MOLINA Primary Care Provider Reason for Visit Reason Comments Diabetes Encounter Details Date Type Department Care Team Description 04/28/2015 Office Visit Endocrinology at [facility] Lluvia Rios, Type II or [facility] JESSE unspecified type [address] [place] [address] without mention of [phone] ENDOCRINOLOGY complication, DEPT. uncontrolled [place], [place] [address] Social History Tobacco Use Types Packs/Day Years Used Date Smoking Tobacco: Never Smokeless Tobacco: Never Alcohol Use Standard Drinks/Week Comments No 0 (1 standard drink = 0.6 oz pure alcoho l) Sex Assigned at Date Recorded Not on file documented as of this encounter Last Filed Vital Signs Vital Sign Reading Time Taken Comments Blood Pressure 122/77 04/28/2015 2:51 PM EDT Pulse 79 04/28/2015 2:51 PM EDT Temperature - - Respiratory Rate - - Oxygen Saturation - - Inhaled Oxygen Concentration - - Weight 148.5 kg (327 lb 6.4 oz) 04/28/2015 2:51 PM EDT Height 162.6 cm (5' 4) 04/28/2015 2:51 PM EDT Body Mass Index 56.2 04/28/2015 2:51 PM EDT documented in this encounter Patient Instructions Patient InstructionsLluvia Vargas APRN - 04/28/2015 3:09 PM EDT Add daily victoza starting at lowest dose Try to lower U 500 regular concentrated doses before meals Use CPAP nightly documented in this encounter Progress Notes Lluvia Vargas APRN - 04/28/2015 6:05 PM EDT DATE OF VISIT: 04/28/2015 REASON FOR VISIT: Followup type 2 DM in fair/poor control. Also, morbid obesity, depression, sleep apnea, hyperlipidemia, hypothyroidism related to Grave's disease, had ablation. BRIEF HISTORY: Presents and states she is determined to try to have gastric bypass surgery in 2014. Discusses recent challenge after she had endoscopy and colonoscopy. States she never lies down flat, always sits up for sleep and had problems when she was lying down flat. DIABETES REGIMEN: U-500 regular concentrated insulin three to four times a day, 150 units three to four times a day. SBGM, four times a day. PHYSICAL ACTIVITY: Not much related to knee pain, states she plans to have knee replaced after the gastric bypass surgery. 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 REVIEW OF SYSTEMS: Depression and Mood: Has counseling. Discusses some relationship issues with her mother. Eyes: No recent vision changes. No recent headaches or chest pain or shortness of breath. No GI symptoms. Sleep Pattern: Is working with PCP to schedule another sleep study, was not able to have her CPAP mask calibrated because she is due for another sleep study. Extremities: Has a lot of knee pain. PHYSICAL EXAMINATION: Appearance: She is globally obese with a very large central girth. Weight 327 pounds, same as it was at previous office visit. Blood pressure 122/77. Eyes: No retinopathy with green light exam. Neck: No thyromegaly or lymphadenopathy. Heart: Regular rate and rhythm. No murmurs. Lungs are clear to auscultation. Feet: Skin is normal. Pulses are normal. Neuro: Normal sensation to 10 g of pressure. Hemoglobin A1c, 8.4%, previous was 8.6%. IMPRESSION AND PLAN: Diabetes mellitus type 2 in fair/poor control. Requested refill for U-500 regular concentrated insulin, which was done. The patient has several allergies, but she does not think she has ever tried a GLP-1 medication. Will add Victoza toher regimen. Taught Victoza pen use, start at the lowest dose 0.6 mg daily in one week, if no side effects increase to 1.2 mg for the second week and then increase to 1.8 mg daily, may be able to lower insulin doses, which will help with her weight loss efforts. Reviewed her 24-hour meal plan. Breakfast is not much, a fruit or a piece of wheat toast or oatmeal. Lunch is a turkey sandwich or grilled cheese. Evening meal is a Crock-Pot meal either stew or pasta or Bonilla's pie. Tries not to snack in the evening, works with dietitian, Mabel Sandoval in [facility]. I gave patient copy of her lab results and reviewed them with her. Hypothyroidism, we will check TSH at next office visit. Hyperlipidemia, will check DLDL at next office visit. She had GDM for all three pregnancies and then diagnosed with type 2 DM in 2008. This was a 37-minute office visit with 36 minutes spent counseling [id number] with the patient in the management of glucose levels, reviewing blood pressure targets, reviewing glucose targets and she is aiming to have a hemoglobin A1c of 8%, prior to being able to schedule gastric bypass surgery. Return to office in July. Will check hemoglobin A1c, TSH, and DLDL. Recent Results (from the past 72 hour(s)) HEMOGLOBIN A1C Result Value Ref Range Hemoglobin A1C 8.4 (*) 4.3 - 5.6 % Est Avg Gluc 194 documented in this encounter Plan of Treatment Not on filedocumented as of this encounter Procedures Procedure Name Priority Date/Time Associated Diagnosis Comme nts HEMOGLOBIN A1C Routine 04/28/2015 1:37 PM Type II or unspecifi ed Results for this EDT type diabetes mellitus proce dure are in without mention of the resul ts complication, section. uncontrolled documented in this encounter Results (ABNORMAL) Hemoglobin A1c (04/28/2015 1:37 PM EDT) Analysis Performed At [facility] Time Signature Hemoglobin A1C 8.4 (H) 4.3 - 5.6 CERNER % MILLENNIUM [...] 36: Suppl. 1, S67-74 Est Avg Gluc 194 mg/dL CERNER IUM Comment: eAG equivalents for HbA1c percentages: HbA1c(%) ?eAG(mg/dL) 6.0 ?126 6.5 ?140 7.0 ?154 7.5 ?169 8.0 ?183 8.5 ?197 9.0 ?212 9.5 ?226 10.0 ? 240 Limitations: The eAG calculation has not been validated on women, individuals below 18 years old and above 70 years old, and individuals with hemoglobinopathies. Additional resources are available on ADA website: http://[employer]/DHMCadacalc Kota STEIN, Sanford J, Livia R, et al. ??Tr anslating the A1C assay into estimated average glucose values. ??Diabetes Care 2008:31(8):3372-5811. Specimen Anatomical Collection Method Collection Time Receive d Time (Source) Location / / Volume Laterality Blood specimen 04/28/2015 1:37 PM 015 1:42 (specimen) EDT PM EDT Resulting Agency Comment Spec In Lab Sergo Garcia MD CHEMISTRY ORDERABLES Performing Organization Address City/State/[place] [address] [facility] documented in this encounter Visit Diagnoses Diagnosis Type II or unspecified type diabetes eriberto litus without mention of complication, uncontrolled documented in this encounter Care Teams Weekend Caregiver Relationship Specialty Start Date End Date Zhanna Francois, JESSE PCP - General 01/27/15 05/15/19 documented as of this encounter
--- OUTSIDE RECORDS SUMMARY | 2022-09-16 12:30 | XMS_ITS | Encounter Summary ---
:1965 Author Organization [facility] [place] [address] Care Team Providers Name Role Phone Sirena Rossi MULTIMEDIA SERVICES COORDINATOR Primary Care Provider Encounter Details Date Type Department Care Team Description 01/13/2012 Clinical [place] [address] Social History Tobacco Use Types Packs/Day Years Used Date Smoking Tobacco: Never Smokeless Tobacco: Never Alcohol Use Standard Drinks/Week Comments No 0 (1 standard drink = 0.6 oz pure alcoho l) Sex Assigned at Date Recorded Not on file documented as of this encounter Last Filed Vital Signs Vital Sign Reading Time Taken Comments Blood Pressure - - Pulse 71 01/13/2012 10:22 AM EDT Temperature - - Respiratory Rate - - Oxygen Saturation 96% 01/13/2012 10:22 AM EDT Inhaled Oxygen Concentration - - Weight - - Height - - Body Mass Index - - documented in this encounter Progress Notes Jade Pope RN - 01/13/2012 11:01 AM EDT Anesthesia questionnaire reviewed with patient while in pre-admission testing. Pre-operative teaching folder reviewed with Patient. Patient expresses a good understanding of all information reviewed Seasonal asthma. Diabetes and HTN well controlled on meds. Uses a CPAP and she knows to bring it with her for surgery. She TBI from a fall three years ago. MCC memory is slowly improving, Her short term memory is still difficult for her. She does not want any information given to her family. States that she is slow to wake up from anesthesia documented in this encounter Plan of Treatment Not on filedocumented as of this encounter Visit Diagnoses Not on filedocumented in this encounter Care Teams Finish Grinder Relationship Specialty Start Date End Date Sirena Rossi APRN PCP - General 09/23/10 01/26/15 [facility] [address] [place] [address] documented as of this encounter
--- OUTSIDE RECORDS SUMMARY | 2022-09-16 12:30 | XMS_ITS | Encounter Summary ---
:1965 Author Organization [facility] [place] [address] Care Team Providers Name Role Phone Zhanna Francois APRN Primary Care Provider Reason for Visit Reason Onset Date Comments Other 02/02/2015 Encounter Details Date Type Department Care Team Description 02/02/2015 Telephone Endocrinology at [facility] Gina Ramos, [place] [address] Social History Tobacco Use Types Packs/Day Years Used Date Smoking Tobacco: Never Smokeless Tobacco: Never Alcohol Use Standard Drinks/Week Comments No 0 (1 standard drink = 0.6 oz pure alcoho l) Sex Assigned at Date Recorded Not on file documented as of this encounter Miscellaneous Notes Telephone Encounter - Gina Urias, RN - 02/03/2015 1:28 PM EDT Ruth Ferraro calls nurse triage line and left voicemail message that she has been speaking with the insurance company who told her that the u-500 insulin can be run through medicare part B rather than part D. Placed call to [facility] lu and spoke with pharmacist who states that this is not correct information and we will go ahead with the PA. Placed call back to Ruth who states that she has called the insurance company and spoken with different people who all states that because it is u-500 insulin it must be run through the Medicare part B. Ruth states that she was called this morning by medicare and told that the PA was being denied because the insulin needed to go through medicare part B. Ruth states she was told to have the prescription sent to a different pharmacy like [facility] to see if they can run it through part B. Placed call to Edith Levin and spoke with certified pharmacy tech who states she has not heard of this but if they had a prescription they would try to run it through. Placed call to Ruth to let her know this. Asked that she call [facility] to give them her updated insurance information. Telephone Encounter - Gina Urias RN - 02/02/2015 4:27 PM EDT Ruth Ferraro calls nurse triage line and left voicemail message that she has not heard back regarding PA. Spoke with PA executive legal secretary who states that the PA is to be sent in this afternoon and will hopefully hear back tomorrow. Placed call to Ruth ferraro to let her know. No answer left message with update. documented in this encounter Plan of Treatment Not on filedocumented as of this encounter Visit Diagnoses Not on filedocumented in this encounter Care Teams Analyst Geochemical Prospecting Relationship Specialty Start Date End Date Zhanna Francois APRN PCP - General 01/27/15 05/15/19 documented as of this encounter
--- OUTSIDE RECORDS SUMMARY | 2022-09-16 12:30 | XMS_ITS | Encounter Summary ---
:1965 Author Organization [facility] [place] [address] Care Team Providers Name Role Phone FrancoisZhanna JESSE Primary Care Provider Encounter Details Date Type Department Care Team Description 02/11/2015 Telephone Dermatology at [facility] Meng Boo MD [address] [place] [address] [facility] [phone] [place], [place] [address] (Wo rk) Social History Tobacco Use Types Packs/Day Years Used Date Smoking Tobacco: Never Smokeless Tobacco: Never Alcohol Use Standard Drinks/Week Comments No 0 (1 standard drink = 0.6 oz pure alcoho l) Sex Assigned at Date Recorded Not on file documented as of this encounter Miscellaneous Notes Telephone Encounter - Liza Cook LPN - 02/12/2015 12:23 PM EDT Spoke with patient re blisters on forearms post LN2 treatment x 3 for actinic keratosis. She reportsblister are 1 inch in height, the fluid appears yellow brown in color, they are painful, the pain attimes radiating up to her elbow. Blisters are warm to touch and ringed in red. No fever. Call transferred to secretary receptionist for scheduling ravin Telephone Encounter - Liza Cook LPN - 02/11/2015 5:24 PM EDT Spoke with patient re blister post LN2 treatment to left and right forearms x 3 she reports areas are raised 1/2 to 3/4 inch high, they are dime and nickel in size, squishy, painful and yellow/mak in color. Pt advised to apply cold compresses, (do not apply ice directly to skin) and plain Vaseline from a tube not a jar, also call clinic for appointment if areas do not resolve by Monday morning. Telephone Encounter - Usha Ireland - 02/11/2015 12:20 PM EDT The patient called and was concerned about some spots that she had frozen yesterday and asked to speak with a nurse. The best number to reach her at is [phone]. documented in this encounter Plan of Treatment Not on filedocumented as of this encounter Visit Diagnoses Not on filedocumented in this encounter Care Teams Ob Tech Relationship Specialty Start Date End Date Zhanna Francois APRN PCP - General 01/27/15 05/15/19 documented as of this encounter
--- OUTSIDE RECORDS SUMMARY | 2022-09-16 12:30 | XMS_ITS | Encounter Summary ---
:1965 Author Organization [facility] [place] [address] Care Team Providers Name Role Phone Zhanna Francois APRN Primary Care Provider Encounter Details Date Type Department Care Team Description 05/04/2015 Telephone Gastroenterology at [facility] Lotus Busby APRN [facility] [place] [address] [place] [id number] [phone] (Wo rk) Social History Tobacco Use Types Packs/Day Years Used Date Smoking Tobacco: Never Smokeless Tobacco: Never Alcohol Use Standard Drinks/Week Comments No 0 (1 standard drink = 0.6 oz pure alcoho l) Sex Assigned at Date Recorded Not on file documented as of this encounter Miscellaneous Notes Telephone Encounter - Lotus Busby APRN - 05/04/2015 5:05 PM EDT Attempted to contact patient re: EGD/colonoscopy results but no answer and left a message with call back number. documented in this encounter Plan of Treatment Not on filedocumented as of this encounter Visit Diagnoses Not on filedocumented in this encounter Care Teams Bulldozer Press Operator Relationship Specialty Start Date End Date Zhanna Francois APRN PCP - General 01/27/15 05/15/19 documented as of this encounter
--- OUTSIDE RECORDS SUMMARY | 2022-09-16 12:30 | XMS_ITS | Encounter Summary ---
:1965 Author Organization [facility] [place] [address] Care Team Providers Name Role Phone Zhanna Francois APRN Primary Care Provider Reason for Visit Reason Comments Skin Cancer Examination Encounter Details Date Type Department Care Team Description 02/10/2015 Office Visit Dermatology at [facility] basal cell cancer; Peng Lawton MD Actinic keratosis; [address] [facility] Seborrheic keratosis; [place] [address] [address] [address] [place] ovary [phone] [facility]-DER[facility] [place], [place] [address] Social History Tobacco Use Types Packs/Day Years Used Date Smoking Tobacco: Never Smokeless Tobacco: Never Alcohol Use Standard Drinks/Week Comments No 0 (1 standard drink = 0.6 oz pure alcoho l) Sex Assigned at Date Recorded Not on file documented as of this encounter Progress Notes Meng Mcnamara MD - 02/10/2015 1:50 PM EDT DERMATOLOGY NEW PATIENT CLINIC NOTE Date of service: 02/10/2015 [facility] Galeana : 1965 Provider: Meng Mcnamara MD Chief Complaint Patient presents with ??? Skin Cancer Examination HPI Ruth Galeana is a 50 y.o. year old female. New patient; here today for consultation, upon the request of her PCP, Zhanna Francois for a full skin exam. Areas of concern today include rough, scaly lesions on her forehead, brown scaly, and flaking under her breasts which are quite irritating to her. She also has scattered stuck on patches on her legs and arms. While being here today Ms. Galeana would also like to have what she believes to be a wire from making [employer] that is embedded in her right third finger. It is very painful. She is a diabetic. 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 SKIN HX: Hx of immense sun exposure BCC- left side of forehead (Aldara 3-5 times/week x 6 weeks, 04/2005) Dermatofibroma- left side of forehead No family history of any skin conditions/cancers/Melanoma ADR: Allergies Allergen Reactions ??? Latex Rash ??? Amlodipine Other (See Comments) Suicidal thoughts ??? Imitrex [Sumatriptan Succinate] Suicidal thoughts ??? Lyrica [Pregabalin] Other (See Comments) Intolerance ??? Metformin Diarrhea ??? Prozac [Fluoxetine] Anxiety ??? Sulfa (Sulfonamide Antibiotics) ??? Tramadol Anxiety MEDS: Current Outpatient Prescriptions Medication Sig Dispense Refill ??? insulin regular [...] CARBONATE (TUMS ORAL) No current facility-administered medications for this visit. ROS General: feeling well Skin: denies other skin complaints EXAM General: NAD, pleasant, cooperative Skin A total body skin exam except for areas covered by underwear was performed. This includes examination of the skin of the face, ears, neck, chest, axillae, left and right upper and lower extremities, hands and feet, abdomen, and except the areas covered by underwear were not examined. Significant skin findings: A. Well-healed scar on left forehead s/p BCC B. SK's - bilateral inframammary, scattered C. Post Inflammatory / prurigo nodules on bilateral arms D. AK on left arm x 2, right arm x 1 TOTAL: 3 E. Digital Mucosal Cyst on right hand, 3rd DIP ASSESSMENT/PLAN: A. Scar w/ h/o BCC - Patient reassured there are no signs of recurrence - Recommend patient to continue to monitor for changes B. Seborrheic Keratosis - Etiology discussed - Patient reassured lesions are benign in nature - No treatment warranted, cosmetic options discussed C. Post Inflammatory Prurigo Nodules - Etiology discussed - At this point these are simply post-inflammatory changes and not amenable to treatment. D. Actinic Keratosis - Etiology discussed - Discussed this condition with the patient and recommended treatment via LN. Patient is in agreement with this treatment plan: Procedure Note: Procedure: Destruction of lesions with cryotherapy. Number: 3 Location: as above Discussed procedure and expectations including risks (including risk of hypopigmentation) and benefits. Verbal consent obtained. There were no complications; the patient tolerated the procedure well. Post-procedure expectations and wound care were reviewed. E. Digital Mucosal Cyst - Etiology discussed - These communicate with the joint space and are best excised by plastics / hand surgeons. Follow Up: RTC: 3 months for follow up of today's examination; sooner PRN. Patient will make this appointment on her way out today. I am documenting this encounter acting as the scribe for and in the presence of Dr. Mcnamara: Chinyere Juárez LPN I performed the above scribed service and agree with the accuracy of the documentation in this encounter. Meng Mcnamara MD Section of Dermatology [facility] documented in this encounter Plan of Treatment Not on filedocumented as of this encounter Visit Diagnoses Diagnosis History of basal cell cancer Personal history of other malignant neop lasm of skin Actinic keratosis Seborrheic keratosis Other seborrheic keratosis Accessory ovary Congenital anomalies of ovaries documented in this encounter Care Teams Gluing Machine Feeder Relationship Specialty Start Date End Date Zhanna Francois APRN PCP - General 01/27/15 05/15/19 documented as of this encounter
--- OUTSIDE RECORDS SUMMARY | 2022-09-16 12:30 | XMS_ITS | Encounter Summary ---
:1965 Author Organization [facility] [place] [address] Care Team Providers Name Role Phone Zhanna Francois JESSE Primary Care Provider Encounter Details Date Type Department Care Team Description 04/09/[address] [facility] Rene Louis EGD WITH BIOPSY [facility] Kesha Ford MD (WRVU 2.49) [place] [address] [facility] [phone] GASTROENTEROLOGY [place], [place] [address] (Wo rk) Social History Tobacco Use Types Packs/Day Years Used Date Smoking Tobacco: Never Smokeless Tobacco: Never Alcohol Use Standard Drinks/Week Comments No 0 (1 standard drink = 0.6 oz pure alcoho l) Sex Assigned at Date Recorded Not on file documented as of this encounter Last Filed Vital Signs Vital Sign Reading Time Taken Comments Blood Pressure 119/64 04/09/2015 10:45 AM EDT Pulse 68 04/09/2015 10:45 AM EDT Temperature - - Respiratory Rate 17 04/09/2015 10:20 AM EDT Oxygen Saturation 94% 04/09/2015 10:45 AM EDT Inhaled Oxygen Concentration - - Weight - - Height - - Body Mass Index - - documented in this encounter Discharge Instructions Discharge InstructionsJnon Sellers RN - 04/09/2015 10:41 AM EDT [...] Care Everywhere.EGD (UPPER ENDOSCOPY) : PEDIATRIC: POST-OP (LATVIAN)COLON POLYPS (LATVIAN)documented in this encounter Medications at Time of [...] mg tablet daily. ONE TOUCH [place] by [facility]Non-Drug; 0 09/15/2016 [place] [facility] Combo Route) route 2 times daily. And [...] if chest pain recurs. Rene Louis MD [facility] Gastroenterology Pager [phone] documented in this encounter H&P Notes Rene [...] at 1615, mother with pt.De. Louis and Arvin into see pt prior to d/c. Pt denies anychest pain. Still with sore lip, instructed to continue with ice to lip throughout tonight and to call if any issues. Pt tolerated po fluids and had steady gait. Jonn Sellers RN Endo [phone] Jonn Sellers RN - 04/09/2015 1:54 PM [...] on ra 91-95% Jonn Sellers RN Endo [phone] documented in this encounter Plan of Treatment [...] 441 ms MUSE SYSTEM (Bezet) Calculated P [place] 50 degrees MUSE SYSTEM Calculated R [place] 27 degrees MUSE SYSTEM Calculated T [place] 15 degrees MUSE SYSTEM INTERPRETATION Normal sinus [...] Method Time Signature Surgical CERNER Pathology ? [facility] ? Provider: ?? RENE LOUIS ??Pt. Name: ?? RUTH GUALLPA ?Y ? Acc #: ?[id number] ?Pt. MRN: ?[id number] ? Col Date: ?? 5 ? /Sex: [...] negative controls. ??These ? IHC studies provide [facility] pathologist with adjunctive diagnostic information. ? Antibody [...] ? A1 ? H. pylori ?Negative ? [facility] ? Provider: ?? RENE LOUIS ??Pt. Name: ?? RUTH GUALLPA ?Y ? Acc #: ?[id number] ?Pt. MRN: ?[id number] ? Col Date: ?? 5 ? /Sex: [...] Volume Laterality 04/09/2015 10:21 AM EDT Rene Louis MD PATHOLOGY/CYTOLOGY ORDERABLE S Performing Organization Address [facility] [place] [address] CERNER MILLENNIUM Specimen to [...] ORDERABLE S Performing Organization Address [facility]/ZIP Code Phon e Number [address] CERNER MILLENNIUM Specimen to [...] ORDERABLE S Performing Organization Address [facility]/[place] [address] CERNER MILLENNIUM Specimen to [...] ORDERABLE S Performing Organization Address [facility]/[place] [address] ALMA LUJANIUM Specimen to Pathology (surgical or derm) (04/09/2015 10:21 AM EDT) Specimen Anatomical Collection Method Collection Time Receive d Time (Source) Location / / Volume Laterality AP Specimen 04/09/2015 10:21 04/09/2015 AM EDT 10:21 AM EDT Narrative [facility] - 04/09/2015 10:21 AM EDT Specimen requisition ordered. ??Separate Pathology report to follow Rene Louis MD PATHOLOGY/CYTOLOGY ORDERABLE S Performing Organization Address City/[facility] [place] [address] CERROBERT BROWN UPPER GI ENDOSCOPY (04/09/2015 8:41 AM EDT) Component Value Ref Test Analysis Performed At [facility] Range Method Time Signature UPPER GI [facility] ENDOSCOPY Endoscopy Patient Name: Ruth Guallpa ? Procedure Date: 04/09/2015 8:41 AM ? N: [id number] ? Date of : 1965 ? Age: 50 ? Order #: [id number] ? Procedure: ? Upper GI endoscopy Indications: [...] ? the physician, the nurse, the ? retail sales associate and the technicia n in the ? [...] reactions. The ? Endoscope was introduced thro [facility] the ? mouth, and [facility] ? of duodenum. The patient tole [...] personally performed the entire procedure. ? Rene Heriberto, 04/09/2015 9:14 AM Number of Addenda: 0 Note Initiated On: 04/09/2015 8:41 AM Specimen (Source) Anatomical Collection Method Collection Time Re ceived Time Location / / Volume Laterality 04/09/2015 8:41 AM EDT Zhanna Francois APRN GENERAL SURGICAL ORDERABLES Performing Organization Address City/State/ZIP Code Phon e Number [facility] COLONOSCOPY (04/09/2015 8:40 AM EDT) [facility] Method Time Signature COLONOSCOPY [facility] Endoscopy Patient Name: Ruth Guallpa ? Procedure Date: 04/09/2015 8:40 AM ? Date of : 1965 ? Age: 50 ? Order #: [id number] ? Procedure: ? Colonoscopy Indications: ? Chronic diarrhea, Change in bowel ? habits Providers: ? Verona Garcia R N Referring MD: ?Lotus Swan, ROGE Medicines: ? Monitored Anesthesia Care [...] ? the physician, the nurse, the ? retail sales associate and the technicia n in the ? [...] Volume Laterality 04/09/2015 8:40 AM EDT Zhanna Francois APRN GENERAL SURGICAL ORDERABLES Performing Organization Address City/State/ZIP Code Phon e Number [facility] documented in this encounter Visit Diagnoses Diagnosis Chest tightness or pressure Other chest pain Diarrhea Fecal incontinence Full incontinence of feces Abdominal pain, unspecified abdominal lo cation documented in this encounter Care Teams Loan Officer Relationship Specialty Start Date End Date Zhanna Francois APRN PCP - General 01/27/15 05/15/19 documented as of this encounter
--- OUTSIDE RECORDS SUMMARY | 2022-09-16 12:30 | XMS_ITS | Encounter Summary ---
:1965 Author Organization [facility] [place] [address] Care Team Providers Name Role Phone Sirena Rossi APRN Primary Care Provider Encounter Details Date Type Department Care Team Description 01/13/2012 External Results Obstetrics [place] [address] Social History Tobacco Use Types Packs/Day [...] on filedocumented in this encounter Care Teams Cordwainer Relationship Specialty Start Date End Date Sirena Rossi APRN PCP - General 09/23/10 01/26/15 MARY [address] [place] [address] documented as of this encounter
--- OUTSIDE RECORDS SUMMARY | 2022-09-16 12:30 | XMS_ITS | Encounter Summary ---
:1965 Author Organization [facility] [place] [address] Care Team Providers Name Role Phone Sirena Rossi APRN Primary Care Provider Encounter Details Date Type Department Care Team Description 01/28/2012 Telephone Obstetrics and Gynecology at Amber Skelotn MD [facility] Kesha anderson [place] [address] [place] [address] [phone] (Wo rk) Social History Tobacco Use Types Packs/Day Years Used Date Smoking Tobacco: Never Smokeless Tobacco: Never Alcohol Use Standard Drinks/Week Comments No 0 (1 standard drink = 0.6 oz pure alcoho l) Sex Assigned at Date Recorded Not on file documented as of this encounter Miscellaneous Notes Telephone Encounter - Amber Roberts MD - 01/28/2012 4:46 PM EDT Called with incisional drainage. Serous. Advised to stop expressing the incisions, shower, cover them with Bacitracin TID and call for fevers. documented in this encounter Plan of Treatment Not on filedocumented as of this encounter Visit Diagnoses Not on filedocumented in this encounter Care Teams Switchboard Installer Relationship Specialty Start Date End Date Sirena Rossi APRN PCP - General 09/23/10 01/26/15 [address]ARY [address] [place] [address] documented as of this encounter
--- OUTSIDE RECORDS SUMMARY | 2022-09-16 12:30 | XMS_ITS | Encounter Summary ---
:1965 Author Organization [place] [address] Care Team Providers Name Role Phone Sirena Rossi APRN Primary Care Provider Encounter Details Date Type Department Care Team Description 12/23/2011 Orders Only Gynecology [place] [facility] Juan Manuel Cook MD [facility] [place] [address] GYNECOLOGY ONCOLOGY [phone] [place], [place] [address] (Wo rk) Social History Tobacco Use Types Packs/Day Years Used Date Smoking Tobacco: Never Assessed Sex Assigned at Date Recorded Not on file documented as of this encounter Plan of Treatment Not on filedocumented as of this encounter Procedures Procedure Name Priority Date/Time Associated Comments Diagnosis FILM LIBRARY STORAGE Routine 12/23/2011 9:52 PM R esults for this ONLY ULTRASOUND EST procedure ar e in STUDY the results section. documented in this encounter Results FILM LIBRARY- STORAGE ONLY ULTRASOUND STUDY (12/23/2011 9:52 PM EST) Specimen (Source) Anatomical Collection Method Collection Time Re ceived Time Location / / Volume Laterality 12/23/2011 9:52 PM EST Narrative RAD - 03/26/2014 2:58 PM EDT This is a non-reportable exam. Procedure Note [facility] - 03/26/2014Formatting of t his note might be different from the original. This is a non-reportable exam. Juan Manuel Cook MD IMG FILM LIBRARY ORDERABLES Performing Organization Address City/State/ZIP Code Phon e Number [facility] [address] [place] [address] documented in this encounter Visit Diagnoses Not on filedocumented in this encounter Care Teams Care Tech Relationship Specialty Start Date End Date Sirena Rossi APRN PCP - General 09/23/10 01/26/15 [facility] [address] [place] [address] documented as of this encounter
--- OUTSIDE RECORDS SUMMARY | 2022-09-16 12:30 | XMS_ITS | Encounter Summary ---
:1965 Author Organization [place] [address] Care Team Providers Name Role Phone FloSirena Eligio MOLINA Primary Care Provider Reason for Visit Reason Onset Date Comments Diabetes 06/20/2013 Encounter Details Date Type Department Care Team Description 06/20/2013 Telephone Endocrinology at [facility] Ana Alexis, [facility] [place] [address] Social History Tobacco Use Types Packs/Day Years Used Date Smoking Tobacco: Never Smokeless Tobacco: Never Alcohol Use Standard Drinks/Week Comments No 0 (1 standard drink = 0.6 oz pure alcoho l) Sex Assigned at Date Recorded Not on file documented as of this encounter Miscellaneous Notes Telephone Encounter - Ana Pacheco RN - 06/21/2013 2:52 PM EDT Pt calls me back. I informed her that Negar Vargas APRN does not work on Fridays (see below). Pt states that she has an appt with her PCP and will have all of her labs drawn at that time. She will make sure they are forwarded to Lluvia. Lluvia notified. Telephone Encounter - Ana Pacheco RN - 06/20/2013 4:44 PM EDT Phone message received from pt; states she missed her last appt, but will be at [facility] on 07/19/13 and asks if she can schedule an appt with Negar Vargas APRN for that day. 07/19/13 is on a Monday, and Jim not here on Fridays. I attempted to call pt with this information; voice-message left on identified phone asking her to call me back. documented in this encounter Plan of Treatment Not on filedocumented as of this encounter Visit Diagnoses Not on filedocumented in this encounter Care Teams Sales Exhibitor Relationship Specialty Start Date End Date Sirena Rossi APRN PCP - General 09/23/10 01/26/15 MARY [address] [place] [address] documented as of this encounter
--- OUTSIDE RECORDS SUMMARY | 2022-09-16 12:30 | XMS_ITS | Encounter Summary ---
:1965 Author Organization [place] [address] Care Team Providers Name Role Phone Sirena Rossi Eligio MOLINA Primary Care Provider Reason for Visit Reason Comments Diabetes Encounter Details Date Type Department Care Team Description 05/29/2012 Office Visit Endocrinology at [facility] Lluvia Rios, Diabetes mellitus; [facility] Kesha anderson APRN Hypothyroid; [place] [address] [place] [address] [facility] ENDOCRINOLOGY DEPT. [place], [place] [address] Social History Tobacco Use Types Packs/Day Years Used Date Smoking Tobacco: Never Smokeless Tobacco: Never Alcohol Use Standard Drinks/Week Comments No 0 (1 standard drink = 0.6 oz pure alcoho l) Sex Assigned at Date Recorded Not on file documented as of this encounter Last Filed Vital Signs Vital Sign Reading Time Taken Comments Blood Pressure 139/69 05/29/2012 2:44 PM EDT Pulse 76 05/29/2012 2:44 PM EDT Temperature - - Respiratory Rate 20 05/29/2012 2:44 PM EDT Oxygen Saturation - - Inhaled Oxygen Concentration - - Weight 141.9 kg (312 lb 12.8 oz) 05/29/2012 2:44 PM EDT Height 162.6 cm (5' 4) 05/29/2012 2:44 PM EDT Body Mass Index 53.69 05/29/2012 2:44 PM EDT documented in this encounter Patient Instructions Patient InstructionsLluvia Vargas APRN - 05/29/2012 3:18 PM EDT Use CPAP mask every night Continue to pursue gastric bypass surgery Consider another appointment with Mabel Sandoval wild life manager Check glucose before meals. Targetr 90-130 May need to increase lantus doses weekly by 5 units to get fasting glucose under 130 documented in this encounter Progress Notes Lluvia Vargas APRN - 05/29/2012 3:34 PM EDT DATE OF VISIT: 05/29/2012 REASON FOR VISIT: New patient to endocrinology for type 2 DM, in very poor control. Also here for hyperlipidemia, class III obesity, sleep apnea, depression, hypothyroidism, and had Graves disease with ablation. BRIEF HISTORY: Presents with daughter, Jennifer. Last visit to endocrinology : 04/2007. DIABETES REGIMEN: Lantus SoloSTAR pen 60 units twice a day, NovoLog FlexPen highest dose is 40 units up to five times a day, but has not been taking as much recently because she has been running out of her supply. PREVENTION STRATEGIES: She does take a statin. Does have an annual dilated eye exam. Does go to the dentist annually. REVIEW OF SYSTEMS: Depression and Mood: Takes Zoloft. Lives with chronic pain. History of a brain injury from a fall. She is on disability. Has fibromyalgia. Eyes: States she needs new glasses. She does have headaches at times. No shortness of breath. No chest pain. No recent GI symptoms. Extremities: Has a lot of right knee pain. States she has been advised to have knee replaced. 24-HOUR MEAL PLAN: Has met with Mabel Sandoval, dietitian, in [place] in the past. Breakfast was a banana and an orange and cereal with 1% milk. Snack was cheese puffs. Dinner last night was Sami food. Evening snack, not always, but if she has one, it is popcorn. PHYSICAL ACTIVITY: Very little related to pain. PHYSICAL EXAMINATION: Appearance: She is globally obese with a very, very large central girth. Weight today 312 pounds. She has lost 10 pounds since January. Blood pressure 139/69. Eyes: No retinopathy by green light exam. Neck: No thyromegaly or lymphadenopathy. Heart: Regular rate and rhythm. No murmurs. Lungs are clear to auscultation. Feet: Skin is dry. Pulses are normal. Neuro: Decreased sensation to 10 g of pressure. Has decreased sensation up to midcalf bilaterally. Hemoglobin A1c done at PCP office in March was 9.2%. IMPRESSION AND PLAN: Diabetes mellitus type 2, in very poor control. The patient requests prescription to be written to take enough NovoLog to keep glucose levels closer to target ranges, which I advised was at least under 130 before meals and before bed. May need to increase Lantus dose by 5 units weekly to get fasting glucose closer to 130. Lowest fasting glucose was 115, but they are most often above 200 and sometimes as high as 230. Blood pressure is close to goal. Hypothyroidism, will check TSH at next office visit. The patient wants to pursue gastric bypass surgery. She plans to call to see when the next scheduled appointment will be. She did attend the informational meeting. Sleep apnea, has not been using CPAP mask consistently, but plans to use it nightly and has decided to sleep on the couch, which seems more restful at this time. Immunizations are up-to-date. She had a pneumonia vaccine in 2005. SBGM: She agrees to check glucose three times a day before meals. Return to office in October. Will check hemoglobin A1c, TSH, vitamin D, HDL, DLDL, microalbumin, and other labs that she is due for. This was a 46-minute office visit with 45 minutes spent counseling with the patient in the management of glucose levels and reviewing healthy meal plan. I encouraged her to schedule another appointment with blayne Cantu. Advised to consider Weight Watchers, but she states she cannot afford that at this time. She did attend [facility] in the past. Reviewed blood pressure targets and cholesterol targets and importance of lowering hemoglobin A1c prior to desired surgery for gastric bypass. documented in this encounter Plan of Treatment Not on filedocumented as of this encounter Visit Diagnoses Diagnosis Diabetes mellitus Type II or unspecified type diabetes eriberto litus without mention of complication, not stated as uncontrolled Hypothyroid Unspecified hypothyroidism Hyperlipidemia Other and unspecified hyperlipidemia documented in this encounter Care Teams Logistics Support Relationship Specialty Start Date End Date Sirena Rossi, JESSE PCP - General 09/23/10 01/26/15 MARY [address] [place] [address] documented as of this encounter
--- OUTSIDE RECORDS SUMMARY | 2022-09-16 12:30 | XMS_ITS | Encounter Summary ---
:1965 Author Organization [facility] Address [address] [place] [address] Care Team Providers Name Role Phone Zhanna Francois APRN Primary Care Provider Reason for Visit Reason Comments Diabetes Encounter Details Date Type Department Care Team Description 2015 Office Visit Endocrinology at [facility] Lluvia Rios, Type II or [facility] [address] unspecified type [address] [place] [address] without mention of [phone] ENDOCRINOLOGY complication, DEPT. uncontrolled [place], [place] [address] Social History Tobacco Use Types Packs/Day Years Used Date Smoking Tobacco: Never Smokeless Tobacco: Never Alcohol Use Standard Drinks/Week Comments No 0 (1 standard drink = 0.6 oz pure alcoho l) Sex Assigned at Date Recorded Not on file documented as of this encounter Last Filed Vital Signs Vital Sign Reading Time Taken Comments Blood Pressure 138/79 2015 1:26 PM EDT Pulse 71 2015 1:26 PM EDT Temperature - - Respiratory Rate - - Oxygen Saturation - - Inhaled Oxygen Concentration - - Weight 148.2 kg (326 lb 12.8 oz) 2015 1:26 PM EDT Height 162.6 cm (5' 4) 2015 1:26 PM EDT Body Mass Index 56.1 2015 1:26 PM EDT documented in this encounter Patient Instructions Patient InstructionsLluvia Vargas APRN - 2015 1:36 PM EDT Please bring meter to appointments Try support stockings Calibrate CPAP mask fitting Gabapentin 100mg in PM. Ok to slowly inceae up to 3X/day to see if leg symptoms decrease Stop lantus and novolog Start U 500 regular concentrated insulin at 100 units 3X/day LOOKS like 20 units. In 2 weeks, ok to increase dose by 1 black line on the syringe to get glucose under 140 before meals Glucagon injection for severe low glucose level Dinking Machine Operator Dr Siegel Or call visiting nurse service to inquire about foot clinics documented in this encounter Progress Notes Lluvia Vargas APRN - 2015 6:31 PM EDT DATE OF VISIT: 2015. REASON FOR VISIT: Followup type 2 DM in continued poor control. Also, hyperlipidemia, obesity, sleep apnea, depression, hypothyroidism related to Graves disease, had ablation. BRIEF HISTORY: Presents and states her hemoglobin A1c is high, states she cannot remember the exact number. PREVIOUS VISIT TO ENDOCRINOLOGY: 05/29/2012. SBGM: Three times a day. DIABETES REGIMEN: Lantus 105 units twice a day, NovoLog 85 units three to four times a day. PHYSICAL ACTIVITY: Not much related to right knee pain, history of fibromyalgia. Also, the patient states she has a brain injury from a history of a fall and she has a hard time remembering. REVIEW OF SYSTEMS: Depression and Mood: Would like to plan the gastric bypass surgery. States she has had the counseling visit for that. Eyes: No recent vision changes. No recent headaches or chest pain or shortness of breath. No recent GI symptoms. Appetite is okay. Has met with steel wool machine operator, Mabel LARSON several times. Sleep Pattern: She has sleep apnea. Needs to have her mask calibrated. Extremities: States her leg pains are terrible. Rates her pain as a 7 on a scale to 1 to 10, 10 being the worse pain. Also, states that her legs and feet swell up. PHYSICAL EXAMINATION: Appearance: She is globally obese with a very large central girth. Weight 326 pounds, she has gained 4 pounds since 2011. Eyes: No retinopathy with green light exam. Neck: No thyromegaly or lymphadenopathy. Heart: Regular rate and rhythm. No murmurs. Lungs are clear to auscultation. Feet: Skin is normal. Pulses are normal. Neuro: Normal sensation to 10 g of pressure. GI symptom: She does have diarrhea and she has a planned further testing to further investigate the etiology. IMPRESSION AND PLAN: Diabetes mellitus type 2 in poor control with large volume of insulin. Will stop present regimen of Lantus and NovoLog and use U-500 regular concentrated insulin. Start 100 units, which looks like 20 units, using an insulin syringe three times a day. Gave the patient 3/10 mL syringe with tape to 20 units. Gave her written information on U-500 regular concentrated insulin. Okay to increase doses by one black line every two weeks until glucose levels are generally under 150. Prescription sent for U-500 regular concentrated insulin and for 3/10 mL insulin syringes. Bring meter to all appointments. She has met with Mabel Sandoval RD,CDE several times in the past. The patient is hoping to be able to schedule gastric bypass surgery in 2014. Advised that she needs to attend another one of the Monday informational meetings. She is hoping to attend in February. Also, she states her insurance has been changed. She is hoping that gastric bypass is still approved with her insurance. Neuropathy symptoms: will try gabapentin 100mg daily and slowly build up to 3X/day. Return to office in two months. Bring meter. Will check hemoglobin A1c. Recent Results (from the past 72 hour(s)) CREATININE Result Value Ref Range Creatinine 0.71 0.70 - 1.20 mg/dL Estimated GFR >60 >=60 HEMOGLOBIN A1C Result Value Ref Range Hemoglobin A1C 8.6 (*) 4.3 - 5.6 % Est Avg Gluc 200 LDL CHOLESTEROL, DIRECT Result Value Ref Range LDL Chol Direct 92 <=99 mg/dL documented in this encounter Plan of Treatment Not on filedocumented as of this encounter Procedures Procedure Name Priority Date/Time Associated Diagnosis Comme nts CREATININE Routine 2015 12:24 Type II or Results for this PM EDT unspecified type procedure a re in diabetes mellitus the result s without mention of section. complication, uncontrolled LDL CHOLESTEROL, Routine 2015 12:24 Type II or Results for this DIRECT PM EDT unspecified type procedure a re in diabetes mellitus the result s without mention of section. complication, uncontrolled HEMOGLOBIN A1C Routine 2015 12:24 Type II or Results f or this PM EDT unspecified type procedure a re in diabetes mellitus the result s without mention of section. complication, uncontrolled documented in this encounter Results (ABNORMAL) Hemoglobin A1c (04/28/2015 1:37 PM EDT) Analysis Performed At [facility] Time Signature Hemoglobin A1C 8.4 (H) 4.3 [...] Mellitus, Diabetes Care 2013; 36: Suppl. 1, S67-81 Est Avg Gluc 194 mg/dL CERNER MILLENNIUM Comment: eAG equivalents for HbA1c percentages: HbA1c(%) ?eAG(mg/dL) 6.0 ?126 6.5 ?140 7.0 ?154 7.5 ?169 8.0 ?183 8.5 ?197 9.0 ?212 9.5 ?226 10.0 ? 240 Limitations: The eAG calculation has not been validated on women, individuals below 18 years old and above 70 years old, and individuals with hemoglobinopathies. Additional resources are available on JACKSON website: [email or web address] Kota STEIN, Sanford J, Livia R, et al. ??Tr anslating the A1C assay into estimated average glucose values. ??Diabetes Care 2008:31(8):3508-6406. Specimen Anatomical Collection Method Collection Time Receive d Time (Source) Location / / Volume Laterality Blood specimen 04/28/2015 1:37 PM 015 1:42 (specimen) EDT PM EDT Resulting Agency Comment Spec In Lab Sergo Garcia MD CHEMISTRY ORDERABLES Performing Organization Address City/[facility] Phon e Number [address] [facility] LDL Cholesterol, Direct (2015 12:24 PM EDT) P athologist Signature LDL Chol 92 <=99 mg/dL [facility] Comment: The National Cholesterol Education Progr am (NCEP) has set the following guidelines for LDL Cholesterol: Reference range: ?? Optimal: ?<100 mg/dL ?? Near Optimal/Above Optimal: ?? 100-1 29 mg/dL ?? Borderline high: ?130-159 mg/dL ?? High: ? 160-189 mg/dL ?? Very high: ?>re=513 mg/dL DUNCAN 2001: 285(19):8202-5212 Specimen Anatomical Collection Method Collection Time Receive d Time (Source) Location / / Volume Laterality Blood specimen 2015 12:24 5 (specimen) PM EDT 12:29 PM EDT Resulting Agency Comment Spec In Lab Sergo Garcia MD CHEMISTRY ORDERABLES Performing Organization Address City/[facility]/ZIP Code Phon e Number [address] [facility] (ABNORMAL) Hemoglobin A1c (2015 12:24 PM EDT) Analysis Performed At Patho logist Time Signature Hemoglobin A1C 8.6 (H) 4.3 - 5.6 CERNER % ENNIUM Comment: Reference Range: 4.3 - 5.6% 5.7 [...] S67-74 Est Avg Gluc 200 mg/dL CERNER IUM Comment: eAG equivalents for HbA1c percentages: HbA1c(%) ?eAG(mg/dL) 6.0 ?126 6.5 ?140 7.0 ?154 7.5 ?169 8.0 ?183 8.5 ?197 9.0 ?212 9.5 ?226 10.0 ? 240 Limitations: The eAG calculation has not been validated on women, individuals below 18 years old and above 70 years old, and individuals with hemoglobinopathies. Additional resources are available on e [employer]SON website: http://[employer].Accedo/[facility] CITYadacalc Kota STEIN, Sanford Barry, Livia R, et al. ??Tr anslating the A1C assay into estimated average glucose values. ??Diabetes Care 2008:31(8):4357-0900. Specimen Anatomical Collection Method Collection Time Receive d Time (Source) Location / / Volume Laterality Blood specimen 2015 12:24 201 5 (specimen) PM EDT 12:29 PM EDT Resulting Agency Comment Spec In Lab Sergo Garcia MD CHEMISTRY ORDERABLES Performing Organization Address City/[facility] [place] [address] CERNER MILLENNIUM Creatinine (2015 12:24 PM EDT) athologist Signature Creatinine 0.71 0.70 - 1.20 CERNER mg/dL MILLENNIUM Comment: Please note that the pediatric reference intervals supplied above were not validated at [facility]. Results from pediatri [...] the following links into your internet browser. [email or web address] [email or web address] Specimen Anatomical Collection Method Collection Time Receive d Time (Source) Location / / Volume Laterality Blood specimen 2015 12:24 5 (specimen) PM EDT 12:29 PM EDT Resulting Agency Comment Spec In Lab Sergo Garcia MD CHEMISTRY ORDERABLES Performing Organization Address City/[facility] Phon e Number [address] CERNER MILLENNIUM documented in this encounter Visit Diagnoses Diagnosis Type II or unspecified type diabetes eriberto litus without mention of complication, uncontrolled documented in this encounter Care Teams Entry Engineer Relationship Specialty Start Date End Date Zhanna Francois APRN PCP - General 01/27/15 05/15/19 documented as of this encounter
--- OUTSIDE RECORDS SUMMARY | 2022-09-16 12:30 | XMS_ITS | Encounter Summary ---
:1965 Author Organization [place] [address] Care Team Providers Name Role Phone Sirena Rossi APRN Primary Care Provider Encounter Details Date Type Department Care Team Description 12/15/2011 Orders Only Gynecology Oncology at [facility] Juan Manuel Cook MD [facility] [place] [address] GYNECOLOGY ONCOLOGY [phone] [place], [place] [address] (Wo rk) Social History Tobacco Use Types Packs/Day Years Used Date Smoking Tobacco: Never Assessed Sex Assigned at Date Recorded Not on file documented as of this encounter Plan of Treatment Not on filedocumented as of this encounter Procedures Procedure Name Priority Date/Time Associated Diagnosis Comme nts FILM LIBRARY Routine 12/15/2011 9:53 PM Results f or this STORAGE ONLY CT EST procedure ar e in ABDOMEN AND PELVIS the resul ts section. documented in this encounter Results FILM LIBRARY- STORAGE ONLY CT ABDOMEN & PELVIS (12/15/2011 9:53 PM EST) Specimen (Source) Anatomical Collection Method Collection Time Re ceived Time Location / / Volume Laterality 12/15/2011 9:53 PM EST Narrative VISHNU - 03/26/2014 2:58 PM EDT This is a non-reportable exam. Procedure Note [place] - 03/26/2014Formatting of t his note might be different from the original. This is a non-reportable exam. Juan Manuel Cook MD G FILM LIBRARY ORDERABLES Performing Organization Address City/State/ZIP Code Phon e Number [facility] [address] [place] [address] documented in this encounter Visit Diagnoses Not on filedocumented in this encounter Care Teams Insole Tape Stitcher Uco Relationship Specialty Start Date End Date Sirena Rossi APRN PCP - General 09/23/10 01/26/15 MARY [address] [place] [address] documented as of this encounter
--- OUTSIDE RECORDS SUMMARY | 2022-09-16 12:33 | XMS_ITS | Encounter Summary ---
:1965 Author Organization [facility] Address [address] [place] [address] Care Team Providers Name Role Phone Sirena Rossi DONOR TECHNICIAN Primary Care Provider Reason for Visit Reason Comments Apnea Encounter Details Date Type Department Care Team Description 09/07/2010 Office Visit [facility] Sarmad Bolden ructive sleep Sleep Program - Nico White MD apnea (adult) [place] [facility] (pediatric) (Primary [address] [facility] [address] Dx) [facility], Level 2 [place] [address] [place], [place] [phone] (Wo rk) Social History Tobacco Use Types Packs/Day Years Used Date Smoking Tobacco: Never Assessed Sex Assigned at Date Recorded Not on file documented as of this encounter Discharge Disposition Disposition Code Departure Means Destination Auto Discharge documented in this encounter Progress Notes Sarmad Bolden MD - 09/21/2010 1018 EST [facility] [place] PROGRESS/FOLLOWUP NOTE - 09/07/2010 SUBJECTIVE: Ms Galeana returns today for followup regarding CPAP therapy for obstructive sleep apnea. Our plan had been for the patient to initiate CPAP therapy with this follow up to discuss how treatment was going, but unfortunately, the patient never received a CPAP mask and so has not been using CPAP therapy regularly as she is still having discomfort with her previous nasal mask. We had sent an order to [facility] at the patient's request, but she reports never hearing from them. The patient brings her machine in with her today, which is currently set at 12 cm of water. It seemsto be functioning appropriately. She is very interested in reinitiating CPAP therapy. She reports no major interval changes in health. Medications are reviewed in the electronic medical record. OBJECTIVE: Physical exam unchanged. Review of the patient's polysomnogram with CPAP titration performed on 07/19/2010 showed that a CPAP pressure of 13 was adequate in treating the patient's sleep disordered breathing. This was a slight increase from her previous pressure setting of 12 cm of water. ASSESSMENT: Ms Galeana has a history of obstructive sleep apnea and looks to be well treated at a CPAPpressure of 13 cm of water. Unfortunately, she has not been set up with treatment as of yet. PLAN: Obstructive sleep apnea: The technologist reviewed her machine today and set the pressure at 13 cm of water. We will give her a loaner mask into she is able to acquire a new Respironics Comfort Gel full face mask, size medium, through [facility] in [facility]. We will follow up to discuss how CPAP therapy is progressing. Electronically Signed by Sarmad Bolden MD 09/21/2010 10:18 Sarmad Bolden MD [facility] Sleep Diplomate - Sarmad Bolden MD - KKP Job ID: SM Doc ID: [id number] Ext Doc ID: [id number] cc: Sirena Rossi NP Sarmad Bolden MD - 09/07/2010 0943 EST This office note has been dictated. documented in this encounter Miscellaneous Notes Scanned Note-Null - Inpatient, MD Tyrell - 09/08/2010 1346 ESTAssociated Order(s): ORDERS - SCANNED documented in this encounter Plan of Treatment Not on filedocumented as of this encounter Procedures Procedure Name Priority Date/Time Associated Diagnosis Comme nts ORDERS - SCANNED 09/08/2010 13:46 EST Res ults for this procedure are i n the results section. documented in this encounter Results ORDERS - SCANNED (09/08/2010 13:46 EST) Specimen (Source) Anatomical Collection Method Collection Time Re ceived Time Location / / Volume Laterality 09/08/2010 13:46 EST Narrative This result has an attachment that is no t available. Procedure Note Inpatient, PhysicianMD - 09/08/2010 13 :46 EST Physician Inpatient MD ADMISSION ORDERABLES Performing Organization Address City/State/ZIP Code Phon e Number [facility] POINT OF CARE documented in this encounter Visit Diagnoses Diagnosis Obstructive sleep apnea (adult) (pediatr ic) - Primary documented in this encounter Orders Equipment Count Last Ordered Date First Ordered Date GENERIC DME ORDER 1 09/07/2010 documented in this encounter Care Teams Steel Tier Relationship Specialty Start Date End Date Sirena Rossi, ROGE PCP - General 02/12/10 12/24/[address] [place] [phone] documented as of this encounter
--- OUTSIDE RECORDS SUMMARY | 2022-09-16 12:33 | XMS_ITS | Encounter Summary ---
:1965 Author Organization [facility] Address [address] [place] [address] Care Team Providers Name Role Phone FloYvonneSirena W SUPERVISOR COATING Primary Care Provider Encounter Details Date Type Department Care Team Description 09/21/2010 Results Only [facility] Yulisa Lamar Bariatric Surgery - MD [place] [address] [place], [place] [phone] (Wo rk) Social History Tobacco Use Types Packs/Day Years Used Date Smoking Tobacco: Never Assessed Sex Assigned at Date Recorded Not on file documented as of this encounter Plan of Treatment Not on filedocumented as of this encounter Procedures Procedure Name Priority Date/Time Associated Comments Diagnosis GLUCOSE, GLUCOMETER Routine 09/21/2010 9:46 EST R esults for this procedure are i n the results section. SURGICAL PATHOLOGY Routine 09/21/2010 0:00 EST Re sults for this procedure are i n the results section. documented in this encounter Results (ABNORMAL) GLUCOSE, GLUCOMETER (09/21/2010 9:46 EST) [facility] Method Time Signature Glucose, 165 (H) 70 - 100 GUILLERMO Fingerstick mg/dl [facility] Documentation Manager ID [id number] MIMA Test Performed by Nursing Services [facility] Specimen Anatomical Collection Method Collection Time Receive d Time (Source) Location / / Volume Laterality 09/21/2010 9:46 09/21/2010 EST 15:26 EST Provider Unknown CHEMISTRY & BLOOD GAS EBONY OLIVER Performing Organization Address City/State/ZIP Code Phon e Number [facility] [address] [place] [address] SERVICES [facility] [address] [place] [id number] SURGICAL PATHOLOGY (09/21/2010 0:00 EST) Component Value Ref Test Analysis Performed At [facility] Range Method Time Signature Pathology SURGICAL PATHOLOGY REPORT ? FLETC HER Report: Reports generated via electr Zapaic interface contain original data; ? [facility] however they are lacking the format of the original report. ? Caution should be taken when reading/interpreting unformatted reports. ? Name: ? DORCAS GUALLPA ? Accession #: ? [id number] ? : ? 1965 (Age: 45) ??F ? Collec t Date: ? 09/21/2010 ? Location: ? ENDOP ? Receive Date: ? 09/21/2010 ? Provider: YULISA M FORGIONE MD ? Copy to: SIRENA W BESCH SUPERVISOR COATING ? Final Pathologic Diagnosis: ? Stomach, antrum, biop sy: ? 1. ?Antral muco sa with mild chronic gastritis. ? 2. ? No Helicobacter pyl bruce-like microorganisms identified on H&E stained ? sections. ? Document reviewed and electr onically signed by: ? DOROTEO NORTON MD ? Report ??Date: 09/23/2010 17 :12 ? By the signature above, the attending physician certifies that he/she has ? personally conducted a gross and/or microscopic examination of the described ? specimens and rendered or co nfirmed the above diagnosis. ? Specimen(s) Received: ? Bx antrum ? Clinical History: ? R/O H. pylori ? Gross Description: ? Received in Hollande' s fixative labelled Dorcas Guallpa and bx antrum is a mak-pink 0.5 x 0.2 x 0. 2 cm soft tissue fragment. ??The specimen is entirely submitted in one cassette. ? ?/jesus ? End of Report ? Specimen (Source) Anatomical Collection Method Collection Time Re ceived Time Location / / Volume Laterality 09/21/2010 09/21/2010 12:1 8 EST Yulisa Lamar MD PATHOLOGY ORDERABLES Performing Organization Address City/State/[facility] Phon e Number [facility] [address] [place] [address] SERVICES [facility] [address] [place] [address] documented in this encounter Visit Diagnoses Not on filedocumented in this encounter Care Teams Health Care Facility Administrator Relationship Specialty Start Date End Date Sirena Rossi, SUPERVISOR COATING PCP - General 02/12/10 12/24/[address] [place] [phone] documented as of this encounter
--- OUTSIDE RECORDS SUMMARY | 2022-09-16 12:33 | XMS_ITS | Encounter Summary ---
:1965 Author Organization [facility] Address [address] [place] [address] Care Team Providers Name Role Phone Sirena Rossi INFORMATION MANAGER Primary Care Provider Reason for Visit Reason Comments New Patient Visit skin check, scaly, itchy, pa tches on forehead and breast, non-healing areas Encounter Details Date Type Department Care Team Description 09/21/2011 Office Visit [facility] Moraima Mathew MD [address] [facility] [address] [place] [address] Lichenification and lichen simplex chron icus; Dermatology - [facility] Zoltan Duval MD Seborrheic keratosis; [place] History of basal cell carcin shawna [address], [place] [id number] Social History Tobacco Use Types Packs/Day Years Used Date Smoking Tobacco: Never Smokeless Tobacco: Never Alcohol Use Standard Drinks/Week Comments No 0 (1 standard drink = 0.6 oz pure alcoho l) occ Sex Assigned at Date Recorded Not on file documented as of this encounter Ordered Prescriptions Prescription Sig Dispensed Refills Start Date End Date clobetasol (TEMOVATE) Apply topically once a 45 g 1 0.05 % ointment day to affected areas on right wrist. Do not apply to face, armpit or groin. documented in this encounter Progress Notes Hayley Mock - 09/21/2011 1320 EST A complete 12 point review of systems was obtained and reviewed. All systems are negative except for: malaise/fatigue, night sweats, weakness, itching, new/changign skin lesions, headache, tinnitus, blurred/double vision, photophobia, eye discharge, palpitations, paroxysmal nocturnal dyspnea, leg swelling, orthopnea, cough, sputum production, shortness of breath, wheezing, diarrhea, black tarry stools, urinary frequency, myalgias, muscle weakness, back pain, has experienced falls, environmental allergies, hair loss, excessive thirst, dizziness, tingling, tremor/shaking, speech change, focal weakness, depression, nervous/anxious, difficulty sleeping, memory loss. Hayley Mock 09/21/2011 13:21 Zoltan Duval MD 09/21/2011 14:19 Patient will be followed by primary care for the above non-dermatologic issues. MORAIMA MATHEW MD Zoltan Duval MD - 09/21/2011 1258 EST Dermatology Outpatient Resident Clinic Note 09/21/2011 CC: spot on left breast HPI: Patient is a 46 year old female who presents for a spot on the left breast. She has a history of actinic keratosis and a basal cell carcinoma on the forehead that were all treated approximately 5 years ago in [place]. She says that she put a strong topical cream over the areas treated, but she does not remember the name. 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 She also has fair skin and red hair. She is otherwise concerned about a scaly lesion that is on her left breast that she says is new and shown up over the last year. She says it does not itch or bleed, but she thinks it has been growing in size. Otherwise, the patient has no other complaints regarding her skin at this time. See documentation in [facility] for medical, surgical, social and family history, which were reviewed at this visit. Present medications, allergies, review of systems are also documented and were all reviewed at this visit. EXAM: Well appearing, well groomed in no acute distress, patient is alert and oriented to person, place, and time. Complete skin exam of the scalp, face, neck, chest, back, abdomen, buttocks, upper andlower extremities, hands, feet, nails and digits was performed. The examination was normal with addition to the following comments: The examination was normal with addition to the following comments: Central forehead with a well healed scar without any evidence of recurrence sun exposed areas had multiple 1-3 mm discrete, round, mak macules, left breast with 2 waxy brown stuck on papules, the right dorsal wrist had ~1.5 oval pink lichenified plaque IMP: 1. Lichen simplex on the right wrist 2. Seborrheic keratosis 3. History of Basal Cell Carcinoma of the forehead PLAN: 1. Clobetasol 0.05% ointment to small area on R wrist with occlusion for 3 weeks then stop 2. Reassured about benign nature of exam today 3. The nature of sun-induced photo-aging and skin cancers is discussed. Sun avoidance, protective clothing, and the use of 30-SPF sunscreens is advised. Observe closely for skin damage/changes, and call if such occurs. ABCDE of melanoma were reviewed. Follow-up in 1 year for a skin check Zoltan Duval MD 09/21/2011 12:58 Attestation Statement: I saw and examined the patient with the resident/fellow. I agree with the findings and plan of care documented in the resident's/fellow's note. MORAIMA MATHEW MD Dermatology [facility] documented in this encounter Plan of Treatment Not on filedocumented as of this encounter Visit Diagnoses Diagnosis Lichenification and lichen simplex chron icus Seborrheic keratosis Other seborrheic keratosis History of basal cell carcinoma Personal history of other malignant neop lasm of skin documented in this encounter Historical Medications This list may reflect changes made after this encounter. Medication Sig Dispensed Refills Start Date End Date fluticasone (FLOVENT) 110 Inhale 110 mcg as 0 mcg/Actuation inhaler directed 2 times daily. fluticasone-salmeterol Inhale 1 Puff as 0 (ADVAIR) 250-50 mcg/dose directed 2 times diskus inhaler daily. levothyroxine (SYNTHROID) Take 175 mcg by mouth 0 175 mcg tablet daily. lisinopril (PRINIVIL, Take 20 mg by mouth 0 ZESTRIL) 20 mg tablet daily. pravastatin (PRAVACHOL) 80 Take 80 mg by mouth 0 mg tablet daily. cetirizine (ZYRTEC) 10 mg Take 10 mg by mouth 0 tablet daily. insulin aspart (NOVOLOG Inject into the skin 0 FLEXPEN) 100 unit/mL 3 times daily with injection pen meals. budesonide-formoterol Inhale 2 Puffs as 0 (SYMBICORT) 160-4.5 directed 2 times mcg/Actuation HFAA inhaler daily. LEVALBUTEROL HCL (XOPENEX Inhale 2 Puffs as 0 INHL) directed every 4 hours as needed. added in this encounter Care Teams Manager Manufacturing Relationship Specialty Start Date End Date Sirena Rossi NP PCP - General 02/12/10 12/24/[address] [place] [phone] documented as of this encounter
--- OUTSIDE RECORDS SUMMARY | 2022-09-16 12:33 | XMS_ITS | Clinical Summary ---
:1965 Author Organization [facility] Address [address] [place] [address] Care Team Providers Name Role Phone Jonathan Smith MD Primary Care Provider Allergies Active Allergy Reactions Severity Noted Date Comments Amlodipine 09/21/2011 Suicidal ideati ons Sumatriptan 09/21/2011 Suicidal ideati ons Latex, Natural Rubber Rash 07/19/2010 Yeast infection if latex used in v aginal area Pregabalin Rash, GI upset 07/19/2010 Metformin Diarrhea 09/21/2011 Fluoxetine Anxiety 09/21/2011 Suicidal ideati ons Sulfa (Sulfonamide Diarrhea, Nausea And 07/19/2010 Antibiotics) Vomiting, GI upset Tramadol Anxiety 09/21/2011 Suicidal ideati ons Medications Medication Sig Dispensed Refills Start Date End Date Status loratadine (CLARITIN) Take 10 mg by 0 08/23/2010 Active 10 mg tablet mouth as needed. atenolol (TENORMIN) 50 Take 75 mg by 0 Active mg tablet mouth daily. levothyroxine Take 112 mcg by 0 08/23/2010 Active (SYNTHROID) 112 mcg mouth daily. tablet lisinopril (PRINIVIL, Take 10 mg by 0 Active ZESTRIL) 10 mg tablet mouth daily. furosemide (LASIX) 20 Take 20 mg by 0 07/20/2010 Active mg tablet mouth daily. sertraline (ZOLOFT) 100 Take 200 mg by 0 Active mg tablet mouth daily. INSULIN Inject 43 Units 0 08/23/2010 Act herminia GLARGINE,HUM.REC.ANLOG into the skin (LANTUS SOLOSTAR SUBQ) daily. Ibuprofen 200 mg Cap Take 600 mg by 0 08/23/2010 Active mouth as needed. nystatin-triamcinolone Apply topically 2 0 0 Active (MYCOLOG II) cream times daily. albuterol (VENTOLIN) 90 Inhale 2 Puffs as 0 Active mcg/Actuation inhaler directed every 4 hours. amlodipine (NORVASC) 5 Take 2 Tabs by 60 Tab 6 08/26/2010 Active mg tablet mouth daily. Take as directed. KETOROLAC TROMETHAMINE Take by mouth 4 0 06/23/2011 Active (KETOROLAC ORAL) times daily. CYCLOBENZAPRINE HCL Take 10 mg by 0 06/23/2011 Active (CYCLOBENZAPRINE ORAL) mouth 3 times daily. KETOROLAC TROMETHAMINE Take 10 mg by 0 Active (TORADOL ORAL) mouth. fluconazole (DIFLUCAN) Take 50 mg by 0 Active 50 mg tablet mouth daily. azithromycin Take 250 mg by 0 Ac tive (ZITHROMAX) 250 mg mouth daily. tablet diclofenac (VOLTAREN) Take 50 mg by 0 Active 50 mg EC tablet mouth 2 times daily. NEEDLES, INSULIN by 0 Act herminia DISPOSABLE (NOVOFINE Misc.(Non-Drug; MISC) Combo Route) route. LEVALBUTEROL HCL Inhale 2 Puffs as 0 Active (XOPENEX INHL) directed every 4 hours as needed. budesonide-formoterol Inhale 2 Puffs as 0 Active (SYMBICORT) 160-4.5 directed 2 times mcg/Actuation HFAA daily. inhaler insulin aspart (NOVOLOG Inject into the 0 Active FLEXPEN) 100 unit/mL skin 3 times injection pen daily with meals. cetirizine (ZYRTEC) 10 Take 10 mg by 0 Active mg tablet mouth daily. pravastatin (PRAVACHOL) Take 80 mg by 0 Active 80 mg tablet mouth daily. lisinopril (PRINIVIL, Take 20 mg by 0 Active ZESTRIL) 20 mg tablet mouth daily. levothyroxine Take 175 mcg by 0 Active (SYNTHROID) 175 mcg mouth daily. tablet fluticasone-salmeterol Inhale 1 Puff as 0 Active (ADVAIR) 250-50 directed 2 times mcg/dose diskus inhaler daily. fluticasone (FLOVENT) Inhale 110 mcg as 0 Active 110 mcg/Actuation directed 2 times inhaler daily. clobetasol (TEMOVATE) Apply topically 45 g 1 09/21/2011 Active 0.05 % ointment once a day to affected areas on right wrist. Do not apply to face, armpit or groin. Active Problems No known active problems Encounters Date Type Specialty Care Team Description 09/10/2022 Lab Requisition Clinical Laboratory Outr Resulting Lab , Provider from Last 3 Months Surgical History Surgery Date Site/Laterality Comments ABDOMEN SURGERY SKIN BIOPSY OVARY SURGERY SECTION KNEE SURGERY Right knee Medical History Medical History Date Comments Arthritis Diabetes mellitus (HCC) Thyroid disease Hypertension Sleeping difficulty Depression Memory problem Allergy Asthma Basal cell carcinoma 2003 forehead Family History Medical History Relation Comments Asthma Brother Diabetes Brother High Cholesterol Brother Hypertension Brother Vision Loss Brother Vision Loss Maternal Grandfather High Cholesterol Maternal Grandmother Hypertension Maternal Grandmother Mental Illness Maternal Grandmother Vision Loss Maternal Grandmother Hearing Loss Mother Vision Loss Mother Collagen Disease Paternal Aunt Vision Loss Paternal Grandfather Vision Loss Paternal Grandmother Anesthesia Problem Sister 1 Asthma Sister 1 Depression Sister 1 Vision Loss Sister 1 Anesthesia Problem Sister 2 Asthma Sister 2 Vision Loss Sister 3 Relation Status Comments Brother Alive Father Maternal Grandfather Maternal Grandmother Mother Alive Paternal Aunt Paternal Grandfather Paternal Grandmother Sister 1 Alive Sister 2 Alive Sister 3 Alive Social History Tobacco Use Types Packs/Day Years Used Date Smoking Tobacco: Never Smokeless Tobacco: Never Alcohol Use Standard Drinks/Week Comments No 0 (1 standard drink = 0.6 oz pure alcoho l) occ Sex Assigned at Date Recorded Not on file Obstetrics History Last Filed Vital Signs Vital Sign Reading Time Taken Comments Blood Pressure 132/74 08/26/2010 1605 EST Pulse 68 08/26/2010 1605 EST Temperature - - Respiratory Rate 16 08/26/2010 1605 EST Oxygen Saturation - - Inhaled Oxygen Concentration - - Weight 145.2 kg (320 lb) 06/23/2011 1555 EDT Height 162.6 cm (5' 4) 06/23/2011 1555 EDT Body Mass Index 54.93 06/23/2011 1555 EDT Plan of Treatment Health Maintenance Due Date Last Done Comments Hepatitis B Vaccine (1 of 3 - 3-dose series) 1965 Hepatitis C Screen 1965 COVID-19 Vaccine (#1) 1965 Procedures Procedure Name Priority Date/Time Associated Comments Diagnosis SPEP, INCLUDES Today 09/09/2022 14:45 Results f or this QUANTITATION OF EST procedure ar e in MONOCLONAL SPIKE the results PERFORMABLE section. PROTEIN, TOTAL Today 09/09/2022 14:45 EST SPEP, INCLUDES Routine 09/09/2022 14:45 Results f or this QUANTITATION OF EST procedure ar e in MONOCLONAL SPIKE the results section. PTH INTACT Routine 09/09/2022 14:45 Results for this EST procedure are i n the results section. from Last 3 Months Results (ABNORMAL) SPEP, INCLUDES QUANTITATION OF MONOCLONAL SPIKE PERFORMABLE (09/09/2022 14:45 EST) Component Value Ref Test Analysis Performed At [facility] gist Range Method Time Signature Albumin % 60.1 55.8 - 09/12/2022 [facility] 66.1 % 14:07 [facility] Albumin g/dL 3.8 3.6 - 09/12/2022 [facility] 5.2 g/dL 14:07 [facility] Alpha-1 % 4.3 2.9 - 09/12/2022 [facility] 4.9 % 14:07 [facility] Alpha-1 g/dL 0.30 0.15 - 09/12/2022 [facility] 0.40 14:07 [facility] g/dL LABORATORY SERVICES Alpha-2 % 12.8 (H) 7.1 - 09/12/2022 [facility] 11.8 % 14:07 [facility] Alpha-2 g/dL 0.80 0.50 - 09/12/2022 [facility] 1.00 14:07 [facility] g/dL LABORATORY SERVICES Beta % 13.2 (H) 8.4 - 09/12/2022 [facility] 13.1 % 14:07 [facility] Beta g/dL 0.80 0.60 - 09/12/2022 [facility] 1.20 14:07 [facility] g/dL LABORATORY SERVICES Gamma % 9.6 (L) 11.1 - 09/12/2022 [facility] 18.8 % 14:07 [facility] Gamma g/dL 0.60 0.60 - 09/12/2022 [facility] 1.60 14:07 [facility] g/dL LABORATORY SERVICES SPEP Comment No apparent 09/12/2022 [facility] monoclonal protein 14:07 [facility] seen on serum LABORATORY electrophoresis SERVICES Comment: See scanned/supplementary repor t. Total Protein 6.4 6.3 - 8.2 g/dL 09/12/2022 14:07 EST [facility]OR[facility]ORY SERVICES Specimen Anatomical Collection Method Collection Time Receive d Time (Source) Location / / Volume Laterality Blood VENOUS BLOOD / 09/09/2022 14:45 2 Unknown EST 16:44 EST Narrative This result has an attachment that is no t available. Provider Outr Resulting Lab CHEMISTRY & BLOOD GAS ORDE RABLES Performing Organization Address City/State/ZIP Code Phon e Number [facility] [address] [place] [address] SERVICES (ABNORMAL) PTH INTACT (09/09/2022 14:45 EST) P athologist Signature Intact PTH 120 (H) 19 - 88 09/12/2022 [facility] pg/mL 9:09 EST [place] [facility] SERVICES Specimen Anatomical Collection Method Collection Time Receive d Time (Source) Location / / Volume Laterality Blood VENOUS BLOOD / 09/09/2022 14:45 2 Unknown EST 16:44 EST Provider Outr Resulting Lab CHEMISTRY & BLOOD GAS ORDE RABSERGE Performing Organization Address City/[facility]/ZIP Code Phon e Number [facility] [address] [place] [address] SERVICES PROTEIN, TOTAL (09/09/2022 14:45 EST) Specimen Anatomical Collection Method Collection Time Receive d Time (Source) Location / / Volume Laterality Blood VENOUS BLOOD / 09/09/2022 14:45 2 Unknown EST 16:44 EST Provider Outr Resulting Lab CHEMISTRY & BLOOD GAS ORDE RABSERGE Performing Organization Address City/[facility]/ZIP Code Phon e Number [facility] [address] [place] [address] SERVICES from Last 3 Months Insurance Payer Benefit Plan / Subscriber ID Effective Phone Address T ype Group Dates MEDICARE MEDICARE A/B [id number] 2013-Pres [address] [place] [phone] [id number] 2020-Prese [address] Medicaid [place] [facility] [phone] Care Teams Senior Telecommunications Specialist Relationship Specialty Start Date End Date Jonathan Smith MD PCP - General 10/16/20 [address] [facility] [place] [address]
--- OUTSIDE RECORDS SUMMARY | 2022-09-16 12:33 | XMS_ITS | Encounter Summary ---
:1965 Author Organization [facility] Address [address] [place] [address] Care Team Providers Name Role Phone Sirena Rossi MOTEL MAID Primary Care Provider Encounter Details Date Type Department Care Team Description 12/22/2015 Results Only [facility]- Carmen Valdes [phone] Wilfredo Eldridge MD [address] [place] [phone] (Wo rk) Social History Tobacco Use Types [...] Procedure Name Priority Date/Time Associated Diagnosis Comme [facility] SURGICAL PATHOLOGY Routine 12/22/2015 10:42 Resul ts for this EST procedure are i n the results section. documented in this encounter Results SURGICAL PATHOLOGY (12/22/2015 10:42 EST) Component Value Ref Test Analysis Performed At [facility] Method Time Signature Pathology SURGICAL PATHOLOGY REPORT [facility] Report: Reports generated via electronic interface contain origina l data; CENTER however they are lacking the format of the original report. LABORATORY Caution should be taken when reading/interpreting unformat jm reports. SERVICES Name: ? DORCAS GUALLPA ? Accession #: ? [id number] ? : ? 1965 (Age: [age]) ??F ? Collect Date: ? 12/22/2015 ? Location: ? [facility] ? Receive Date: ? 12/23/2015 ? Provider: CARMEN JIMENEZ MD Copy to: AMY PATRICK TRAVELING CLERK ? Final Pathologic Diagnosis: SOFT TISSUE OF FINGER, RIGHT MIDDLE, CYST, BIOPSY: - ??Features consistent with digital mucous cyst. See ayush t. Comment: Deeper sections have been reviewed. Dr. Duval 12/25/2015 10:24 AM Document reviewed and electronically signed by: KONG ARAGON MD Report ??Date: 12/28/2015 09:10 By the signature above, the attending physician certifies th at he/she has personally conducted a gross and/or microscopic examin ation of the described specimens and rendered or confirmed the above diagnosis. Specimen(s) Received: Mucous cyst right middle finger Clinical History: Mucous cyst right middle finger Gross Description: ? Received in formalin labelled with proper patient identification (initials G, M) and right middle fing er cyst is a mak-white unoriented soft tissue (0.6 x 0.3 x 0.3 cm). The specimen is inked and entirely submitte d as 1. Tram Landeros 12/23/2015 2:53 PM End of Report Specimen Anatomical Collection Method Collection Time Receive d Time (Source) Location / / Volume Laterality 12/22/2015 10:42 12/23/2015 EST 10:42 EST Carmen Jimenez Jr., MD PATHOLOGY ORDERABLES Performing Organization Address City/State/ZIP Code Phon e Number [facility] [address] [place] [address] SERVICES documented in this encounter Visit Diagnoses Not on filedocumented in this encounter Care Teams Clinical Registered Nurse Relationship Specialty Start Date End Date Sirena Rossi NP PCP - General 02/12/10 12/24/[address] [place] [phone] documented as of this encounter
--- OUTSIDE RECORDS SUMMARY | 2022-09-16 12:33 | XMS_ITS | Encounter Summary ---
:1965 Author Organization [facility] Address [address] [place] [address] Care Team Providers Name Role Phone Jonathan Smith MD Primary Care Provider Encounter Details Date Type Department Care Team Description 09/10/2022 Lab Requisition [facility] Outr Resulting Lab, Pathology & Laboratory Provider [facility] [address] [place], [place] [id number] Social History Tobacco Use Types Packs/Day Years [...] in MONOCLONAL SPIKE the results PERFORMABLE section. PTH INTACT Routine 09/09/2022 14:45 Results for this EST procedure are i n the results section. SPEP, INCLUDES Routine 09/09/2022 14:45 Results f or this QUANTITATION OF EST procedure ar e in MONOCLONAL SPIKE the results section. PROTEIN, TOTAL Today 09/09/2022 14:45 EST documented in this encounter Results (ABNORMAL) SPEP, INCLUDES QUANTITATION OF MONOCLONAL SPIKE PERFORMABLE (09/09/2022 14:45 EST) Component Value Ref Test Analysis Performed At [facility] Range Method Time Signature Albumin % 60.1 55.8 - 09/12/2022 [facility] 66.1 % 14:07 [facility] SERVICES Albumin g/dL 3.8 3.6 - 09/12/2022 [facility] 5.2 g/dL 14:07 EST CENTER LABORATORY SERVICES Alpha-1 % 4.3 2.9 - 09/12/2022 [facility] 4.9 % 14:07 [facility] SERVICES Alpha-1 g/dL 0.30 0.15 - 09/12/2022 [facility] 0.40 14:07 [facility] g/dL LABORATORY SERVICES Alpha-2 % 12.8 (H) 7.1 - 09/12/2022 [facility] 11.8 % 14:07 [facility]OR[facility]ORY SERVICES Alpha-2 g/dL 0.80 0.50 - 09/12/2022 [facility] 1.00 14:07 [facility] g/dL LABORATORY SERVICES Beta % 13.2 (H) 8.4 - 09/12/2022 [facility] 13.1 % 14:07 [facility]ORATORY SERVICES Beta g/dL 0.80 0.60 - 09/12/2022 [facility] 1.20 14:07 [facility] g/dL LABORATORY SERVICES Gamma % 9.6 (L) 11.1 - 09/12/2022 [facility] 18.8 % 14:07 [facility]ORATORY SERVICES Gamma g/dL 0.60 0.60 - 09/12/2022 [facility] 1.60 14:07 [facility] g/dL LABORATORY SERVICES SPEP Comment No apparent 09/12/2022 [facility] monoclonal protein 14:07 [facility] seen on serum LABORATORY electrophoresis SERVICES Comment: See scanned/supplementary repor t. Total Protein 6.4 6.3 - 8.2 g/dL 09/12/2022 14:07 [facility] LABORATORY SERVICES Specimen Anatomical Collection Method Collection Time Receive d Time (Source) Location / / Volume Laterality Blood VENOUS BLOOD / 09/09/2022 14:45 2 Unknown EST 16:44 EST Narrative This result has an attachment that is no t available. Provider Outr Resulting Lab CHEMISTRY & BLOOD GAS ORDE CHASTITY [facility] Organization Address City/State/ZIP Code Phon e Number [facility] [address] [place] [address] SERVICES PROTEIN, TOTAL (09/09/2022 14:45 EST) Specimen Anatomical Collection Method Collection Time Receive d Time (Source) Location / / Volume Laterality Blood VENOUS BLOOD / 09/09/2022 14:45 2 Unknown EST 16:44 EST Provider Outr Resulting Lab CHEMISTRY & BLOOD GAS ORDE CHASTITY Performing Organization Address City/State/ZIP Code Phon e Number [facility] [address] [place] [address] SERVICES (ABNORMAL) PTH INTACT (09/09/2022 14:45 EST) P athologist Signature Intact PTH 120 (H) 19 - 88 09/12/2022 [facility] pg/mL 9:09 EST [facility]ENTER LABORATORY SERVICES Specimen Anatomical Collection Method Collection Time Receive d Time (Source) Location / / Volume Laterality Blood VENOUS BLOOD / 09/09/2022 14:45 2 Unknown EST 16:44 EST Provider Outr Resulting Lab CHEMISTRY & BLOOD GAS PRUDENCEAline HAYWOOD Performing Organization Address City/State/ZIP Code Phon e Number [facility] [address] [place] [address] SERVICES documented in this encounter Visit Diagnoses Not on filedocumented in this encounter Care Teams Cam Milling Machine Operator Relationship Specialty Start Date End Date Jonathan Smith MD PCP - General 10/16/20 [address] [place], [place] [id number] documented as of this encounter
--- OUTSIDE RECORDS SUMMARY | 2022-09-16 12:33 | XMS_ITS | Encounter Summary ---
:1965 Author Organization Health system Address [address] [place] [address] Care Team Providers Name Role Phone Zhanna Francois APRN Primary Care Provider Jonathan Smith MD Primary Care Provider Encounter Details Date Type Department Care Team Description 07/08/2020 Lab Requisition [facility] Sapp[place] Grace for general adult medical examination without abnormal findings; Pathology & Bijal Horvath, Encounter for screening for malignant neoplasm of cervix; Laboratory Medicine BRANCH ASSOCIATE Encounter for screening for human papill omavirus (HPV) - [address] [facility] [id number] [phone] Social History Tobacco Use Types Packs/Day Years [...] Name Priority Date/Time Associated Diagnosis Comme nts PAP TEST Today 07/07/2020 17:00 Encounter for general Re sults for this EDT adult medical procedure are in examination without the resu lts abnormal finding s section. Encounter for screening for malignant neoplasm of cervix Encounter for screening for human papillomavirus (HPV) HUMAN PAPILLOMAVIRUS Today 07/07/2020 17:00 Encounter for ge neral Results for this (HPV) DETECTION-HIGH EDT adult medical proced ure are in RISK TYPES examination without the resu lts abnormal finding s section. Encounter for screening for malignant neoplasm of cervix Encounter for screening for human papillomavirus (HPV) documented in this encounter Results HUMAN PAPILLOMAVIRUS (HPV) DETECTION-HIGH RISK TYPES (07/07/2020 17:00 EDT) [facility] Method Time Signature Human Negative Negative 07/15/2020 [facility] Papillomavirus 14:56 EDT [place] (HPV) LABORATORY Detection-High SERVICES Types Comment: No E6 or E7 mRNA is detected fr om HPV types 16,18,31,33,35,39,45,51,52,56,58,59,66, and 68 by volunteer services director mediated amplification. Specimen Anatomical Collection Method Collection Time Receive d Time (Source) Location / / Volume Laterality Pap Test (Cervix 07/07/2020 17:00 020 and/or EDT 16:50 EDT Endocervix) Bijal Grace NP MICROBIOLOGY - GENERAL ORDERABLES Performing Organization Address City/State/ZIP Code Phon e Number [facility] [address] [place] [address] SERVICES PAP TEST (07/07/2020 17:00 EDT) Component Value Ref Test Analysis Performed At [facility] Range Method Time Signature Specimens A. Cervix and/or 07/15/2020 [facility] Endocervix , 14:56 [facility] ThinPrep Imaging LABORATORY System with SERVICES Manual Evaluation Specimen Satisfactory for 07/15/2020 [facility] Adequacy Evaluation - 14:56 [facility] transformation LABORATORY zone component SERVICES present General Negative for 07/15/2020 [facility] Categorization intraepithelial 14:56 [facility] lesion or LABORATORY malignancy SERVICES Attestation . 07/15/2020 [facility] Elect ronically 14:56 T [place] signed by LABORATORY Curtis Del Valle, SERVICES CT(ASCP)(I AC) on 07/15/20 20 at 1456 Clinical History See below 07/15/2020 [facility] 14:56 [facility] LABORATORY SERVICES HPV The result for the Human Pap illomavirus (HPV) Detection-High Risk Types is Negative. No E6 or E7 mRNA is detected from HPV types 16,18,31,33,35,39,45,51,52,56,58,59,66, and 68 by volunteer services director mediated 07/15/2020 [facility] amplification.Testing was pe rformed on specimen [id number] and was resulted on 07/15/2020 1452 EDT by CLARITA, LAB INSTRUMENT RESULTS IN 14:56 EDT CENTER LABORATORY SERVICES Performing Lab [facility] 07/15/2020 [facility] AL LAB 14:56 T CENTER LABORATORY SERVICES Scanned Images 07/15/2020 [facility] 14:56 T [facility] LABORATORY SERVICES Specimen Anatomical Collection Method Collection Time Receive d Time (Source) Location / / Volume Laterality Pap Test (Cervix 07/07/2020 17:00 020 and/or EDT 11:11 EDT Endocervix) Bijal Grace NP PATHOLOGY ORDERABLES Performing Organization Address City/State/ZIP Code Phon e Number [facility] [address] [place] [address] SERVICES documented in this encounter Visit Diagnoses Diagnosis Encounter for general adult medical exam ination without abnormal findings Unspecified general medical examination Encounter for screening for malignant ne oplasm of cervix Screening for malignant neoplasm of the cervix Encounter for screening for human papill omavirus (HPV) Special screening examination for human papillomavirus (HPV) documented in this encounter Care Teams Oracle Applications Developer Relationship Specialty Start Date End Date Zhanna Francois APRN PCP - General 12/25/15 10/15/20 [address] [place], [place] [id number] Jonathan Smith MD PCP - General 10/16/[address] [place], [place] [id number] documented as of this encounter
--- OUTSIDE RECORDS SUMMARY | 2022-09-16 12:33 | XMS_ITS | Encounter Summary ---
:1965 Author Organization [facility] Address [address] [place] [address] Care Team Providers Name Role Phone Sirena Rossi FRONT TENDER Primary Care Provider Encounter Details Date Type Department Care Team Description 07/16/[address] [facility], [facility] [address] [place] [address] Social History Tobacco Use Types Packs/Day Years Used Date Smoking Tobacco: Never Smokeless Tobacco: Never Alcohol Use Standard Drinks/Week Comments Yes 0 (1 standard drink = 0.6 oz pure alcoho l) occ Sex Assigned at Date Recorded Not on file documented as of this encounter Medications at Time of Discharge Medication Sig Dispensed Refills Start Date End Date albuterol (VENTOLIN) 90 Inhale 2 Puffs as 0 mcg/Actuation inhaler directed every 4 hours. amlodipine (NORVASC) 5 mg Take 2 Tabs by mouth 60 Tab 6 08/26/2010 tablet daily. Take as directed. atenolol (TENORMIN) 50 mg Take 75 mg by mouth 0 tablet daily. azithromycin (ZITHROMAX) Take 250 mg by mouth 0 250 mg tablet daily. CYCLOBENZAPRINE HCL Take 10 mg by mouth 0 011 (CYCLOBENZAPRINE ORAL) 3 times daily. diclofenac (VOLTAREN) 50 mg Take 50 mg by mouth 0 EC tablet 2 times daily. fluconazole (DIFLUCAN) 50 Take 50 mg by mouth 0 mg tablet daily. furosemide (LASIX) 20 mg Take 20 mg by mouth 0 tablet daily. Ibuprofen 200 mg Cap Take 600 mg by mouth 0 08/23 as needed. INSULIN Inject 43 Units into 0 08/23/2010 GLARGINE,HUM.REC.ANLOG the skin daily. (LANTUS SOLOSTAR SUBQ) KETOROLAC TROMETHAMINE Take by mouth 4 0 06/23/20 11 (KETOROLAC ORAL) times daily. KETOROLAC TROMETHAMINE Take 10 mg by mouth. 0 (TORADOL ORAL) levothyroxine (SYNTHROID) Take 112 mcg by 0 08/23 112 mcg tablet mouth daily. lisinopril (PRINIVIL, Take 10 mg by mouth 0 ZESTRIL) 10 mg tablet daily. loratadine (CLARITIN) 10 mg Take 10 mg by mouth 0 08/23/2010 tablet as needed. NEEDLES, INSULIN DISPOSABLE by Misc.(Non-Drug; 0 (NOVOFINE MISC) Combo Route) route. nystatin-triamcinolone Apply topically 2 0 2009 (MYCOLOG II) cream times daily. sertraline (ZOLOFT) 100 mg Take 200 mg by mouth 0 tablet daily. documented as of this encounter Discharge Disposition Disposition Code Departure Means Destination Home or Self [facility] documented in this encounter Plan of Treatment Not on filedocumented as of this encounter Visit Diagnoses Not on filedocumented in this encounter Care Teams [employer] Relationship Specialty Start Date End Date Sirena Rossi NP PCP - General 02/12/10 12/24/[address] [place] [id number] documented as of this encounter
--- OUTSIDE RECORDS SUMMARY | 2022-09-16 12:33 | XMS_ITS | Encounter Summary ---
:1965 Author Organization [facility] Address [address] [place] [address] Care Team Providers Name Role Phone Sirena Rossi Eligio AWS ARCHITECT Primary Care Provider Encounter Details Date Type Department Care Team Description 12/12/2007 Results Only [facility] - Marcia Petit MD Maple conversion [address] [place] [address] [place], [place] [id number] [phone] Social History Tobacco Use Types Packs/Day Years Used Date Smoking Tobacco: Never Assessed Sex Assigned at Date Recorded Not on file documented as of this encounter Plan of Treatment Not on filedocumented as of this encounter Procedures Procedure Name Priority Date/Time Associated Diagnosis Comme [facility] SURGICAL PATHOLOGY Routine 12/12/2007 0:00 EST Re sults for this procedure are i n the results section. documented in this encounter Results SURGICAL PATHOLOGY (12/12/2007 0:00 EST) Component Value Ref Test Analysis Performed Pathologis t Range Method Time At [facility] Pathology SURGICAL PATHOLOGY REPORT SHAE CASTILLO Report: Reports generated via electronic interface contain keshava l data; ZABRINA TURNER however they are lacking the format of the original report. Caution should be taken when reading/interpreting unformatte d reports. Name: ? DORCAS GUALLPA ? Accession #: ? [id number] ? : ? 1965 (Age: 42) ??F ? Collect Date: ? 12/12/2007 ? Location: ? [facility] ? Receive Date: ? 12/12/2007 ? Provider: CLARIBEL PETIT MD Copy to: SIRENA ROSSI AWS ARCHITECT ? Final Pathologic Diagnosis: ? Endometrium, curettings: 1. ?Endometrium with inactive glands and pseudodecidualized stromal changes consistent with exogenous hormone effect. See commen t. 2. ? Focal stromal breakdown. 3. ? Fragments of benign endocervical glands. ?? Comment: ? This case was shown in intradepartmental consultation . Document reviewed and electronically signed by: Lucille Wilson MD Report ??Date: 12/17/2007 16:00 By the signature above, the attending physician certifies th at he/she has personally conducted a gross and/or microscopic examin ation of the described specimens and rendered or confirmed the above diagnosis. Specimen(s) Received: ? Endometrial curettings Clinical History: ? Menorrhagia Gross Description: ? Received in formalin labelled Lissett and endometrial curettings are 3.5 x 1.5 x 0.6 cm of red-brown hemorrhagic soft tissue fragments. ??The specimen is entirely submitted as (A1) and (A2) following fi ltration. ??(Zohra Neumann/jesus End of Report Specimen (Source) Anatomical Collection Method Collection Time Re ceived Time Location / / Volume Laterality 12/12/2007 12/12/2007 16:3 2 EST Claribel Petit MD PATHOLOGY ORDERABLES Performing Organization Address City/State/ZIP Code Phon e Number [facility] [address] [place] [address] SERVICES [facility] [address] [place] [address] documented in this encounter Visit Diagnoses Not on filedocumented in this encounter Care Teams Lug Loader Relationship Specialty Start Date End Date Sirena Rossi NP PCP - General 02/12/10 12/24/15 [address] [facility] [address] [place] [address] documented as of this encounter
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
--- OUTSIDE RECORDS SUMMARY | 2022-09-16 12:33 | XMS_ITS | Encounter Summary ---
:1965 Author Organization [facility] Address [address] [place] [address] Care Team Providers Name Role Phone Sirena Rossi BLEACHING MACHINE OPERATOR Primary Care Provider Reason for Visit Reason Comments Sleep Disorder Encounter Details Date Type Department Care Team Description 07/19/2010 Office Visit [facility] Unknown, Briana allison MD Obstructive sleep Sleep Program - Sarmad Bolden MD [address] [place] [address], Level 2 [place] [phone] apnea (adult) [place] (pediatric) (Primary [address] [facility]) [place] [address] Social History Tobacco Use Types Packs/Day Years Used Date Smoking Tobacco: Never Assessed Sex Assigned at Date Recorded Not on file documented as of this encounter Last Filed Vital Signs Vital Sign Reading Time Taken Comments Blood Pressure - - Pulse - - Temperature - - Respiratory Rate - - Oxygen Saturation - - Inhaled Oxygen Concentration - - Weight 142.4 kg (314 lb) 07/19/20102120 EDT Height 162.6 cm (5' 4) 07/19/20102120 EDT Body Mass Index 53.9 07/19/20102120 EDT documented in this encounter Progress Notes Sarmad Bolden MD - 08/09/20101 EDT This office note has been dictated. Iza Briscoe - 07/27/2010 1018 EDT Kelin Galeana ([id number]) Polysomnographic Report Recording identification Patient name: Kelin Galeana Referring Physician Kimi Test Date: 07/19/2010 Interpreting physician Sex: M Technologist ML date: 1965 Height Patient age: 45 years Weight Study # [id number] Indication for Test: Cpap titration Medications: Sleep Medications: Test Description: The Multi-channel overnight study consists of a combination of EOG, Chin EMG, EEG,Limb EMG, Thoracic and Abdominal wall movements, Nasal/oral airflow, nasal pressure, ECG, body position and tracheal sound. Sleep Data Light off (LO) : 11:10:32 PM Sleep onset (SO) : 11:19:02 PM Light on (PIPPA) : 6:09:32 AM Durations Time in Bed : 419.0 min Light off -> Light on Total Sleep Time : 332.5 min REM + NREM (during SPT) Sleep Efficiency : 79.4% 100 x TST/TIB REM time : 129.0 min REM (during TIB) NREM time : 203.5 min N1 + N2 + N3 (during TIB) : Latencies From Light off (min) From Sleep onset (min) Sleep onset 8.5 - N1 8.5 0.0 N2 51.5 43.0 N3 REM 148.0 139.5 Sleep stages distribution duration TIB TST (min) (%) (%) WK (TIB) 86.5 20.6 - REM 129.0 30.8 38.8 N1 52.0 12.4 15.6 N2 151.5 36.2 45.6 N3 0.0 0.0 0.0 Arousal Summary Total number With resp. event With resp. event & desat Leg Mvt arousal Spontaneous arousal m arousal REM 11 0 0 4 7 m arousal NREM 35 1 0 11 23 m arousal TOT 62 1 0 19 42 arousal >15sec 5 4 0 0 1 Total number of WK or MVT episodes : 29 Arousal index : 12.1/h(sleep) Respiratory Data REM Events CA OA MA Sum Ap Hyp RERA Resp. Events Number 0 0 0 0 0 0 0 Max (sec.) 0.0 0.0 0.0 0.0 0.0 0.0 0.0 Mean (sec.) 0.0 0.0 0.0 0.0 0.0 0.0 0.0 Index (#/h REM) 0.0 0.0 0.0 0.0 0.0 0.0 0.0 Non-REM events CA OA MA Sum Ap Hyp RERA Resp. Events Number 0 0 0 0 0 5 5 Max (sec.) 0.0 0.0 0.0 0.0 0.0 25.0 25.0 Mean (sec.) 0.0 0.0 0.0 0.0 0.0 18.3 18.3 Index (#/h NREM) 0.0 0.0 0.0 0.0 0.0 1.5 1.5 Respiratory events summary (Total sleep time) CA OA MA Sum Ap Hyp RERA Resp. Events Number 0 0 0 0 0 5 5 Max (sec.) 0.0 0.0 0.0 0.0 0.0 25.0 25.0 Mean (sec.) 0.0 0.0 0.0 0.0 0.0 18.3 18.3 Index (#/h NREM) 0.0 0.0 0.0 0.0 0.0 0.9 0.9 Respiratory Event Index Summary (Total sleep time) REM #/h (REM) NREM #/h(NREM) TST #/h (sleep) AHI 0.0 0.0 0.0 RDI 0.0 1.5 0.9 Body Position Summary Total Dur .(min) Total Sleep Dur (min) sleep (%) Total REM Dur (min) Arousal Index CA (#) OA (#) MA (#) HYP (#) REM AHI Non REM AHI SMITHA index (#/h) AHI 202.4 180.3 89.1 90.4 4.3 0 0 0 0 0.0 0.0 0.0 0.0 0.1 0.1 100.0 0.1 600.0 0 0 0 0 0.0 0.0 0.0 0.0 175.7 152.1 86.6 38.5 14.6 0 0 0 0 0.0 0.0 0.0 0.0 pos Total Dur.(min) Total Sleep Dur (min) Total Sleep (%) Total REM Dur (min) Arousal Index CA (#) OA (#) MA (#) HYP (#) RERA (#) Non REM RDI REM RDI index (#/h) RDI L 202.4 180.3 89.1 90.4 4.3 0 0 0 0 0.0 0.0 0.0 0.0 P 0.1 0.1 100.0 0.1 600.0 0 0 0 0 0.0 0.0 0.0 0.0 S 175.7 152.1 86.6 38.5 14.6 0 0 0 0 0.0 2.6 0.0 2.0 R Oximetry Summary Oximetry distribution WK REM NREM TOTAL <70 (min) 0.0 0.0 0.0 0.0 <80 (min) 0.0 0.0 0.0 0.0 <89 (min) 0.0 0.0 0.0 0.0 <90 (min) 0.0 0.0 0.0 0.0 Average (%) 96 97 97 97 Minimum 02 96 Desat Index (#/hour) 0.0 0.0 0.0 Desat max (%) 0 0 0 0 Heart Rate Summary Statistics WK REM NREM Mean HR (BPM) 138.4 58.6 60.1 Median (BPM) 74.000 60.000 60.000 Leg Movements Summary Count Index (#/h) Leg movements 71 12.8 Leg movements meeting PLM criteria 31 5.6 Leg movements with respiratory events with arousal 3 0.5 Leg movements with arousal (without respiratory event) 17 3.1 Leg mvts without arousal and without respiratory event 51 9.2 Minutes Total time with PLM : 12.7 min ( 3.8 % of sleep) POSITIVE PRESSURE DISTRIBUTION IPAP Level (cmH2O) EPAP Level (cmH2O) Total Dur (min) Total Sleep (min) Sleep (%) REM Dur % Arousal index Pos 1 Pos1 (% Dur) Pos 2 Pos2 (% Dur) CA (#) OA (#) MA (#) Hypo (#) Min SpO2 <88% SMITHA Apnea index AHI 5 5 46.0 25.5 55.4 0.0 28.2 S 69.8 L 30.2 0 0 0 0 93 0.0 0.0 0.0 0.0 7 7 10.8 8.8 81.5 0.0 34.1 S 100.0 0 0 0 0 96 0.0 0.0 0.0 0.0 8 8 5.8 0.0 0.0 0.0 0.0 . 100.0 0 0 0 0 0 0.0 0.0 0.0 0.0 9 9 24.2 22.2 91.7 0.0 5.4 S 100.0 0 0 0 0 96 0.0 0.0 0.0 0.0 10 10 67.8 59.6 87.9 0.0 10.1 S 78.2 L 21.8 0 0 0 0 95 0.0 0.0 0.0 0.0 11 11 9.6 9.6 100.0 84.4 0.0 L 100.0 0 0 0 0 96 0.0 0.0 0.0 0.0 12 12 67.2 67.2 100.0 94.6 4.5 L 100.0 0 0 0 0 95 0.0 0.0 0.0 0.0 13 13 18.1 16.6 91.7 30.9 7.2 L 96.1 S 3.3 0 0 0 0 96 0.0 0.0 0.0 0.0 15 15 70.1 64.5 92.0 0.0 3.7 L 80.5 S 19.5 0 0 0 0 95 0.0 0.0 0.0 0.0 17 13 29.8 26.1 87.6 70.8 6.9 L 69.5 S 30.5 0 0 0 0 95 0.0 0.0 0.0 0.0 18 14 10.8 10.3 95.4 95.4 17.5 S 100.0 0 0 0 0 96 0.0 0.0 0.0 0.0 19 15 19.0 19.0 100.0 100.0 12.6 S 100.0 0 0 0 0 96 0.0 0.0 0.0 0.0 [facility] Technologist Preliminary Report Consulting Provider: Kimi Technologist: Iza Briscoe PSG STUDY #: [id number] STUDY TYPE: Titration Study Respiratory Events:RERA PLMS: No. Respiratory related events: RERA, Snores, UARS Pressure Recommendations: 17IPAP 13EPAP O?? LPM TECHNOLOGIST PRELIMINARY REPORT SUMMARY: Rem lateral at 48ayh44 looks okay and Rem supine at 17/13 with normalized airflow observed. Damaso Smith - 07/19/2010 2213 EDT BEDTIME QUESTIONNAIRE 1. Has today been an unusual day in any respect? No. 2. Approximately how many hours sleep did you get last night? 5 1/2hours. 3. Was this a typical night? Yes. 4. Do you feel this amount of sleep is adequate? No. 5. Did you nap today? Yes. Please indicate approximately when and for how long: at 10:00am for 2 hours 6. At what time did you last eat? 6:10 pm 1. Was it a snack or a meal? meal 7. Any changes to medications or supplements for the day of the sleep study? no 8. Are you currently taking any medication to help you sleep or stay awake? No 9. Please indicate today's consumption of: 1. Alcohol: None. 2. Caffeine: Yes. Was it coffee And how much? 12 ounces at 6:30am [facility] - [phone] SLEEP PATIENT MEDICAL HISTORY FORM Kelin Galeana 07/19/2010 no referring provider Sleep study number: [id number] female Height: 162.6 cm (64) Weight : 142.429 kg (314 lb) No outpatient prescriptions have been marked as taking for the 07/19/10 encounter (Office Visit) withPOLYSOMNOGRAPHY. Reason for Visit: cpap titration Caffeine:Yes, 1-2 cups per day Excessive Sleepiness:Yes Alcohol:Yes, rare Restless Sleeper:Yes Cigarettes: No Leg Kicking:Yes Witnessed Snoring:Yes Witnessed Apnea:Yes Frequent Awakenings:Yes No past medical history on file. No past surgical history on file. Sleep medications before bed? No Usual bedtime: 11:00-12:00pm Usual rise time: 6:00-6:30 Usual # of awakenings: 2-3 Usual Naps per week: 8-9 and for how long 20 minutes/ 1 1/2 hr PSG TECHNOLOGIST LOG SHEET (NOT INTERPRETED BY A PHYSICIAN) Patient's Name: Kelin Galeana PSG Tech: Damaso Smith DOS: 07/19/2010 PSG Study #: [id number] Before Study Sleep Aides (time, type, dose): none Baseline HR: 75 Respiratory Rate: 18 Resting SPO2: 96% Height:162.6 cm (64) Weight: 142.429 kg (314 lb) Time IPAP/ EPAP Mask Leak Oxygen LPM Tech Notes/ Troubleshooting Sleep Stage Position Low SAO2 CO2 1110 5 CM 28 LPM LO,SNORES,AR W,1 L,S 93% 1113 TIR,CHECK POS SENSOR,TOR @1114 1140 5 CM 29 LPM SNORES,AR W,1,2 S 95% 1147 TIR,PT HAD QUESTION ABOUT MASK 1204 7 CM 37 LPM INC CPAP,SNORES,AR 2,W,1 S 95% 1216 9CM 45 LPM SNORES 2,3,W S 96% 1240 10CM 46 LPM SNORES 2,W,1 S 96% 1245 TIR, CHECK MASK,FIX LEAK,TOR @ 1246 100 10 CM 44 LPM 2,W S 96% 130 10 CM TIR CHECK MASK,FIX LEAK,SNORES,UAR AR S,L 96% 136 11 CM 44 LPM INC CPAP DUE TO SNORES,UAR,RESIDUAL SNORES,AR 2,R L 96% 146 12 CM 47 LPM INC CPAP,QUIET LATERAL REM R L 96% 215 12 CM 47 LPM QUIET,SLIGHT UAR R L 96% 245 12 CM 48 LPM SLIGHT UAR R L 96% 250 13 CM 51 LPM AR R L 96% 259 TIR,FIX LL, PT UP TO BR,PT REQUESTS TRIAL OF LIBERTY HYBRID 333 10 CM 39 LPM RAMP DOWN 10 CM APPLY RESMED LIBERTY SMALL MOUTHPIECE/MEDIUM AR W,1 L 95% 345 12 CM 43 LPM RAMP UP,SNORES,UAR W,1 L 94% 348 13 CM 45 LPM RAMP UP, LOUD SNORES,UAR 1,2 L 96% 358 15 CM 48 LPM INC CPAP,QUIET LATERAL SLEEP 2 L 97% 430 15 cm 49 Quiet,loud snores,ar 2,w l 96% 441 Pt aroused,tir check mask,interface looks good 455 48 Apply bipap due to loud snores,ar @ 15 cm, 1,2,w l,s 94% 515 Tir,request supine sleep 525 53 Inc bipap,snores uar r,w s 96% 535 53 Inc bipap,compare,tir @555 check mask leak r s 96% 557 15 cm Ramp down 15 cm for last 10 minutes,quiet w,1 s 95% 610 LO [facility] TITRATION STUDY OBSERVATION REPORT PSG Study #:[id number] Consulting Provider: Ilsa Technologist: Damaso Smith Sleep Architecture All stages seen: Yes Sleep Onset REM: No Respiratory Events Type: mostly snores,uar,arls causing sleep fragmentation Position of respiratory events: No correlation Snoring: loud Breathing: both oral and nasal Sp0?? REM: Mean Wolf 96% NREM: Mean Wolf 94% If no supine time, why? If no lateral time, why? Arrhythmias:N/A Titration Details: Mask(s) used for study (Refractory Furnace Designer, Model, and Size): Resmed Quatro FFM Small/ Resmed [place] Hybrid Medium Pillows, Small Mouthpiece//Respironics Comfort Gel Full Medium(pt did not use Gel Full during study but trialed it for a few minutes in AM and stated it as her preference) Type of masks used during study:FFM, HYBRID Technologists recommended interface: Respironics Comfort Full Gel Medium Chin Strap needed?No Supine: Pressure apneas eliminated 5 cm H??O Non - Supine: Pressure apneas eliminated 5 cm H??O. All stages were seen. SW rebound: Yes. REM rebound: Yes. Supplemental O??: O?? was not added Ending pressure: 15 IPAP, 15 EPAP Titration Summary: CPAP appeared to be well tolerated.Lateral sleep looked good at 12 cm with Rem stage sustained. Supine sleep required 15 cm/tech also compared BiPAP to 19/15 to compare. [facility] Rise Time Questionnaire Type of Study: Titration Study 1. How many hours do you feel you slept last night? 5 1/2 2. How would you describe your sleep last night in our lab compared to a typical night at home? average 3. How do you feel this morning? Really tired 4. If we provided treatment for your sleep last night, how do you feel about it this morning? Improved my sleep Pt chose [facility] for her DME documented in this encounter Miscellaneous Notes Study - Dino Todd - 08/01/2010 1247 EDT [facility] DATE: 07/19/2010 OVERNIGHT POLYSOMNOGRAM WITH CPAP/BIPAP TITRATION Study #[id number] Requesting Provider: Sirena Rossi NP CLINICAL HISTORY: A 45-year-old woman previously with recently diagnosed obstructive sleep apnea presents for CPAP titration to assess optimal pressures for treatment. TECHNICAL DESCRIPTION An overnight polysomnogram was performed on the night of 07/19/2010, and attended by a trained sleeptechnologist. Monitoring channels included: EEG channels F3M2, F4M1, C3M2, C4M1, O1M2, O2M1; left and right EOG; submental EMG; bilateral anterior tibialis EMG; thoracic and abdominal respiratory effort by RIP belts; and snoring by piezo-electric transducers; airflow by CPAP/BiPAP pressure changes; pulse oximetry; single lead EKG; body position. Selective review of events of interest are available from video recording. OBJECTIVE DATA: 1. Sleep data: This patient's total time in bed is 419 minutes, total sleep time is 322.5 minutes resulting in a sleep efficiency of 79.4%. The sleep onset latency is 8.5 minutes, REM onset latency 139.5 minutes. Sleep stage distributions are as follows: 38.8% in REM sleep, 15.6% in N1 sleep, 45.6% inN2 sleep, 0% in N3 sleep. Arousal index is 12.1 per hour. 2. Respiratory data: Total sleep time: AHI was 0 and RDI was 0.9, supine-AHI was 0. . Lowest oxygen saturation was 96% with an average saturation of 97%. 3. Movement/position data: The patient spent 202 minutes on the left side, 0.1 minutes in the prone position and 175 minutes in the supine position. The patient's leg movement index was 12.8. The leg movement with arousal index was 0.5. 4. Cardiac data: The patient's mean heart rate in non-REM sleep was 60 beats per minute, in REM sleep was 58 beats per minute. 5. EEG data: No epileptiform activity seen. CPAP titration: Patient was started at CPAP pressure of 5, which was titrated up to a maximum of 15 cm of water pressure and was transitioned over to BiPAP. Overall, it appeared that a CPAP pressure of13 rather than BiPAP use was the best for this patient in eliminating sleep-disordered breathing events and oxygen desaturations and optimizing patient comfort. A Respironics comfort gel full medium mask was used. PLAN: Patient will be initiated on CPAP therapy at 13 cm of water using a Respironics comfort gel flow medium mask. Follow up at the sleep center will be arranged to assess tolerance, compliance and efficacy of CPAP therapy. I personally reviewed the study and the resident's/fellow's interpretation and agree with the findings. Electronically Signed by Sarmad Bolden MD 08/01/2010 12:47 Dino Todd MD Sarmad Bolden MD [facility] Sleep Diplomate - Dino Todd MD P - CD Job ID: SM Doc ID: [id number] Ext Doc ID: [id number] cc: Sirena Rossi NP documented in this encounter Plan of Treatment Not on filedocumented as of this encounter Visit Diagnoses Diagnosis Obstructive sleep apnea (adult) (pediatr ic) - Primary documented in this encounter Historical Medications This list may reflect changes made after this encounter. Medication Sig Dispensed Refills Start Date End Date furosemide (LASIX) 20 mg Take 20 mg by 0 07/20/20 10 tablet mouth daily. lisinopril (PRINIVIL, Take 10 mg by 0 ZESTRIL) 10 mg tablet mouth daily. levothyroxine (SYNTHROID) Take 112 mcg by 0 08/23 112 mcg tablet mouth daily. atenolol (TENORMIN) 50 mg Take 75 mg by 0 tablet mouth daily. loratadine (CLARITIN) 10 mg Take 10 mg by 0 08/23 tablet mouth as needed. simvastatin (ZOCOR) 40 mg Take 40 mg by 0 07/20/2 010 08/23/2010 tablet mouth 2 times daily as needed. sertraline (ZOLOFT) 50 mg Take 100 mg by 0 08/23/2010 tablet mouth daily. added in this encounter Care Teams Swaging Machine Operator Relationship Specialty Start Date End Date Sirena Rossi NP PCP - General 4/30/10 3/10/[address] [phone] documented as of this encounter
--- OUTSIDE RECORDS SUMMARY | 2022-09-16 12:33 | XMS_ITS | Encounter Summary ---
:1965 Author Organization [facility] Address [address] [place] [address] Care Team Providers Name Role Phone Sirena Rossi ENDOCRINOLOGIST Primary Care Provider Encounter Details Date Type Department Care Team Description 06/12/2012 Results Only [facility] Luis Daniel Rossi, ENDOCRINOLOGIST Laboratory Services - [address] [facility] [address] [place], [place] [address] [facility] [phone] [place] [address] [phone] Social History Tobacco Use Types Packs/Day Years [...] Priority Date/Time Associated Diagnosis Comme nts PAP TEST- RESULT Routine 06/12/2012 0:00 EDT Resu lts for this ONLY procedure are i n the results section. documented in this encounter Results PAP TEST- RESULT ONLY (06/12/2012 0:00 EDT) Component Value Ref Test Analysis Performed Pathologis t Range Method Time At Signature Pathology CYTOPATHOLOGY REPORT MIMA Report: [facility] Reports generated via electronic interface contain original data; however they are lacking the format of the original report. Caution should be taken when reading/interpreting unformatte d reports. Name: ? DORCAS GUALLPA ? Accession #: ? [id number] ? : ? 1965 (Age: 47) ??F ?Collect Da te: ? 06/12/2012 ? Location: ? [facility] ? Receive Date: ? 06/14/2012 ? Provider: SIRENA ROSSI ENDOCRINOLOGIST Copy to: ? Final Report SPECIMEN ADEQUACY ? Satisfactory for Evaluation - transformation zone component present GENERAL CATEGORIZATION ? Negative for Intraepithelial Lesion or Malignancy ?? Last Menstural Period: December 2011 Treatment History: Miscellaneous treatment: 2007 Endometrial curettage, January 2012 ??Laproscopic Oophenectomy Other: Additional clinical information: inactive glands pseu dodecidualized stromal changes, exogenous effect Specimen/Source: ??Pap Test, Cervix/Endocervix, ThinPr ep Imaging System with manual evaluation Document reviewed and electronically signed by: ? Tayler Recinos, CT(ASCP) ? Report ??Date: 06/21/2012 10:34 HPV with Pap Test ? Date Ordered: ? 06/21/2012 ? Status: ?? Patito d Out ?Date Complete: ? 06/25/2012 ? By: ??System Interface ? Date Reported: ? 06/25/2012 ? Interpretation RESULT: Negative for HPV. No E6 or E7 mRNA is detected from HPV types 16,18,31,33,35, 39,45,51,52,56,58,59,66, and 68 by roads and parking lots sweeper operator mediated amplification. Comments Document reviewed and electronically signed by: ? System Interface ? Report date: 06/25/2012 By the signature above, the attending physician certifies th at he/she has personally conducted a gross and/or microscopic examin ation of the described specimens and rendered or confirmed the above diagnosis. End of Report Specimen (Source) Anatomical Location Collection Method / Collectio n Time Received Time / Laterality Volume 06/12/2012 06/14/2012 Sirena Rossi NP PATHOLOGY ORDERABLES Performing Organization Address City/State/ZIP Code Phon e Number [facility] [address] [place] [address] SERVICES [facility] [address] [place] [address] documented in this encounter Visit Diagnoses Not on filedocumented in this encounter Care Teams Methods Specialist Relationship Specialty Start Date End Date Sirena Rossi, ENDOCRINOLOGIST PCP - General 02/12/10 12/24/[address] [place] [phone] documented as of this encounter
--- OUTSIDE RECORDS SUMMARY | 2022-09-16 12:33 | XMS_ITS | Encounter Summary ---
:1965 Author Organization [facility] Address [address] [place] [address] Care Team Providers Name Role Phone Sirena Rossi NP Primary Care Provider Zhanna Francois APRN Primary Care Provider Jonathan Smith MD Primary Care Provider Encounter Details Date Type Department Care Team Description 08/09/2010 Documentation Visit [facility] Sophia Camp, Bariatric Surgery - PhD [address] [address] [place], [place] [phone] Social History Tobacco Use Types Packs/Day Years Used Date Smoking Tobacco: Never Assessed Sex Assigned at Date Recorded Not on file documented as of this encounter Plan of Treatment Not on filedocumented as of this encounter Visit Diagnoses Not on filedocumented in this encounter Care Teams Cold Header Operator Relationship Specialty Start Date End Date Sirena Rossi NP PCP - General 02/12/10 12/24/[address] [phone] Zhanna Francois APRN PCP - General 12/25/15 10/15/20 [address] [phone] Jonathan Smith MD PCP - General 10/16/20 [address] [place], [place] [phone] documented as of this encounter
--- OUTSIDE RECORDS SUMMARY | 2022-09-16 12:33 | XMS_ITS | Encounter Summary ---
:1965 Author Organization [facility] Address [address] [place] [address] Care Team Providers Name Role Phone FloYvonneSirena W NURSERY SCHOOL TEACHER Primary Care Provider Reason for Visit Reason Comments Migraine Encounter Details Date Type Department Care Team Description 08/26/2010 Office Visit [facility] Eitan Davis Chr onic post- traumatic headache; Neurology - S PhD Mgrn wo aura w intrc mgrn [place] [address] [facility] [address] [place] [address] [facility] [place] [address] (Wo rk) Social History Tobacco Use Types [...] - Inhaled Oxygen Concentration - - Weight 143.3 kg (316 lb) 08/26/2010 1605 EST Height 162.6 cm (5' 4) 08/26/2010 1605 EST Body Mass Index 54.24 08/26/2010 1605 EST documented in this encounter Ordered Prescriptions Prescription Sig Dispensed Refills Start Date End Date amlodipine (NORVASC) 5 Take 2 Tabs by mouth 60 Tab 6 08/2010 mg tablet daily. Take as directed. sumatriptan (IMITREX) Take 1 Tab by mouth 12 Tab 6 08/2606/23/2011 100 mg tablet once as needed for Migraine for 1 dose. Take not more than 8 days / month. May repeat once following 2 hours as needed. documented in this encounter Progress Notes Inpatient, MD Tyrell - 01/13/2011 1449 EDT Eitan Davis MD - 08/26/2010 1625 EST This office note has been dictated. documented in this encounter Plan of Treatment Not on filedocumented as of this encounter Visit Diagnoses Diagnosis Chronic post-traumatic headache Migraine without aura, with intractable migraine, so stated, without mention of status migrainosus Evaluation - Eitan Davis MD - 01/16/2011 1714 EDT NEUROLOGY HEALTH CARE SERVICE NEW PATIENT EVALUATION - 08/26/2010 SUBJECTIVE: Kelin Galeana is a 45-year-old right-handed woman sent in consultation by Sirena Rossi NP for evaluation and management of recurrent headaches. For details of the history of present illness, past medical history, review of systems, social history, family history, medications, allergies, examination and laboratory results, please refer to the neurology new patient questionnaire in the [facility] medical record, as well as in [facility]. HISTORY OF PRESENT ILLNESS: Kelin Galeana states that she began to develop headaches at approximately age 13, which was three years following menarche at age 10. Her headaches became a significant problem at age 43 following falling on ice on 11/28/2008. She hit her head at the occiput, had loss of consciousness and at that time had a head CT scan, which she was told was within normal limits. Currently she has headaches approximately 20 days per month. Four days per month she would regard them as severe. She does have a history of motion sickness, which began in childhood. She thinks that her headaches have not changed in frequency over the past six months, but may have decreased in severity over the past year. The headaches may be preceded by fatigue, mood change, nausea, neck pain, light sensitivity, blurry vision, cloudy thinking, dizziness, scalp tenderness or noise sensitivity. The headaches can occur at any particular time of the day, of the week, but she does note that some headaches aremore likely to occur in the week prior to menses. She does have a visual disturbance of blurriness, depth perception distorted, swimming flashes, following a cough, sometimes sparkles, dark spots or clouds. These appear typically in the center left of her visual field, either prior to or during the headache and may last minutes to hours at a time. The headaches are typically located across the frontalis and left temporal region as well as the right angle of the jaw and occiput. They have a constant,sharp, exploding, crushing, sometimes throbbing quality, reaching maximum severity typically over minutes with a typical severity of 7 to 9/10. They typically last longer than a day. They may be triggered by bright lights or worsened by bright lights or loud noises. Some headaches may be worsened by odors and some may be triggered by skipping meals, too little sleep, emotional stress, airplane flights, changes in the weather, pressure on her scalp. They may be worsened by exertion, coughing, sneezing, straining, or bending over. Headaches are typically associated with neck tightness, sometimes nausea and vomiting, diplopia, increased lacrimation, generalized weakness, numbness of her legs, feet, hips and fingers, tenderness of her head, vertigo, fainting, difficulty with thinking clearly. She drinks approximately 7 cups of coffee and 14 cups of tea per week. MEDICATIONS: Daily ibuprofen. Previous medications have included Topamax, Tylenol No. 3, metformin, Imitrex, Maxalt and an occipital nerve block. She currently receives nutritional counseling and psychological counseling. In the past, she has received chiropractic therapy and massage. When she has a headache, she may apply a hot or a cold compress and try to withdraw to a quiet, dark place and sleep and drink water. ALLERGIES: SULFA, PROZAC, LYRICA, LATEX. IMAGING STUDIES: Head CT scan without contrast 11/28/2008 at [facility], which was within normal limits by report. She also underwent a brain MR scan on 11/28/2007 at [facility], which we do not have the report available for. PAST MEDICAL HISTORY: Hypertension, heart rhythm abnormalities with Graves disease in 2001, head trauma as noted, Graves disease with an ablation, on Synthroid currently, asthma, sleep disorder, sinusitis, diabetes, anxiety, posttraumatic stress disorder, fibromyalgia. She has undergone right knee surg eries, 3 ovarian surgeries, 2 sections. REVIEW OF SYSTEMS: Good appetite. Stated weight of 306 pounds, up from 250 pounds a year ago. Height5 feet 4 inches tall. She sleeps approximately 4 hours per night. She may have awakenings at night because of headache. She does have a history of snoring, gasps and pauses in her breathing at night. She feels the need to move her legs as she is falling asleep and moves her legs during sleep. She complains of daytime sleepiness. She complains of fatigue, night sweats, flushing spells, swollen legs, and dizziness. She wears glasses or contacts. She complains of blurry vision, hearing loss, diarrhea, palpitations, difficulty with urination including frequency and urgency, joint pain, back pain, parest hesias, memory problems, mood problems, and ovarian cysts. Menarche was age 10, irregular menstrual cycle. She thinks that she is perimenopausal. She has had five pregnancies and four deliveries with headaches increasing after the pregnancies. 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 Denies tobacco use, drinks alcohol occasionally. FAMILY HISTORY: Notable for migraine in her mother, maternal grandmother and two sons and headaches in her brother. OBJECTIVE: On examination, she is an obese middle-aged woman in no distress. Blood pressure is 132/74, pulse 68, respirations 16. Weight 316 pounds. Body mass index 54. Currently with 1/10 headache. There were no murmurs or extra heart sounds appreciated. No carotid bruits appreciated. Funduscopic exam found flat sharp discs. She was awake, alert and oriented x3. Good recall of events. Able to followinstructions well. Speech was fluent. Visual ernst were full to confrontation. Pupils were notable for a subtle right Yeimi syndrome. Extraocular movements were intact with normal saccades and pursuits without nystagmus. Facial sensation was normal to light touch. Facial movement was full and intact. Hearing was decreased to finger rub on the left side. Tongue was midline. Gag was intact. Strength was intact to shoulder shrug and head turning movements. Bulk and tone were normal. Power was 5/5 throughout. Reflexes were 2+ and symmetric throughout. Plantar responses were flexor bilaterally. There were no involuntary movements noted, no pronator drift present, no rebound present. Iexwcr-wq-ilml, finger tapping and orbital movements of the arms were normal. Cezx-orsg-fb-bean movements were normal.Gait was narrow based and fluid with normal good arm swing. She could walk well on her heels, toes and in tandem. Romberg was negative. Sensation was intact to light touch, temperature and vibration throughout. IMPRESSION: Kelin Galeana is a 45-year-old woman with a history of chronic daily headache consistent with migraine without aura. She also has posttraumatic headache, ICD-9 code 339.22. Her headaches in the past have been perimenstrual and worsened with . She has daily caffeine exposure in coffee and tea, as well as daily Ibuprofen use. She finds that stress is a trigger for headache. She has a comorbid history of obesity. She is scheduled for bypass surgery in February 2011, history of fibromyalgia, history of head trauma, hypertension, hypothyroidism, status post Graves disease, history of asthma, sinusitis, diabetes, anxiety, PTSD, polycystic ovary disease, insomnia and likely sleep apnea. She has a positive family history for migraine. PLAN: I urged her to taper off caffeine in her diet and reduce ibuprofen use, not to exceed eight days per month. She is currently scheduled for a mask fitting for CPAP for obstructive sleep apnea, andshe should keep this appointment as this is important for her chronic headaches as well. It may be he lpful to consider repeating an occipital nerve block if this has helped her in the past. For migraine prophylaxis, will start her off-label on amlodipine at 2.5 mg daily, to be increased as tolerated over 3 weeks to 10 mg daily watching for potential side effects, which might include constipation, pedal edema and orthostatic intolerance. For acute treatment of her headaches, will start her on Imitrexas a generic sumatriptan 100 mg tablets to be taken at mild headache pain, not to exceed eight days per month. She will repeat with a second tablet after two hours if necessary, and I reviewed with herpotential side effects, which might include chest pain. It would be helpful for her primary care prov ider to consider trying to find a psychologist who will provide cognitive behavioral therapy and biofeedback for pain management. It would also be helpful for Ms Galeana to obtain her pharmacy records and her medical records from her primary care provider to bring to her next appointment in headache clinic. She will keep track of her headaches with a headache diary and return to clinic in approximately4 months. Other potential therapies, which could be considered for prophylaxis might include Topamaxor Botox. Electronically Signed by Eitan Davis MD,PhD 01/16/2011 17:14 Eitan Davis MD,PhD - Eitan Davis MD,PhD - [facility] Job ID: Doc ID: [id number] [facility] Doc ID: [id number] cc: Sirena Rossi NP documented in this encounter Historical Medications This list may reflect changes made after this encounter. Medication Sig Dispensed Refills Start Date End Date albuterol (VENTOLIN) 90 Inhale 2 Puffs as 0 mcg/Actuation inhaler directed every 4 hours. nystatin-triamcinolone Apply topically 2 0 2009 (MYCOLOG II) cream times daily. pioglitazone (ACTOS) 30 mg Take 30 mg by mouth 0 06/23/2011 tablet daily. Lidocaine 4 % PtMd Apply topically as 0 0 06/23/2011 needed. phenazopyridine (PYRIDIUM) Take 200 mg by 0 06/23/2011 200 mg tablet mouth 3 times daily. promethazine (PHENERGAN) Take 25 mg by mouth 0 06/23/2011 25 mg tablet every 6 hours as needed. added in this encounter Care Teams Oil House Attendant Relationship Specialty Start Date End Date Sirena Rossi NP PCP - General 02/12/10 12/24/[address] [place] [id number] documented as of this encounter
--- OUTSIDE RECORDS SUMMARY | 2022-09-16 12:33 | XMS_ITS | Encounter Summary ---
:1965 Author Organization [facility] Address [address] [place] [address] Care Team Providers Name Role Phone Sirena Rossi SKIING TEACHER Primary Care Provider Encounter Details Date Type Department Care Team Description 09/30/2015 Results Only [facility]- Zhanna Palomo, CROP NUTRITION SCIENTIST [phone] [address] [place] [address] (Wo rk) Social History Tobacco Use Types [...] Diagnosis Comme nts PAP TEST- RESULT Routine 09/30/2015 0:00 EST Resu lts for this ONLY procedure are i n the results section. documented in this encounter Results PAP TEST- RESULT ONLY (09/30/2015 0:00 EST) Component Value Ref Test Analysis Performed At [facility] Method Time Signature Pathology CYTOPATHOLOGY REPORT [facility] Report: CENTER Reports generated via electronic interface contain origina l data; LABORATORY however they are lacking the format of the original report. SERVICES Caution should be taken when reading/interpreting unformatte d reports. Name: ? DORCAS GUALLPA ? Accession #: ? [id number] ? : ? 1965 (Age: 4 1) ??F ?Collect Da te: ? 09/30/2015 ? Location: ? [facility] ? Receive Date: ? 10/02/2015 ? Provider: ZHANNA PATRICK APRN Copy to: ? Final Report SPECIMEN ADEQUACY ? Satisfactory for Evaluation - transformation zone component present GENERAL CATEGORIZATION ? Negative for Intraepithelial Lesion or Malignancy ?? Specimen/Source: ??Pap Test, Cervix/Endocervix, ThinPr ep Imaging System with manual evaluation Document reviewed and electronically signed by: ? Josey Alcala, [place](ASCP) ? Report ??Date: 10/06/2015 08:59 HPV with Pap Test ? Date Ordered: ? 10/06/2015 ? Status: ?? Patito d Out ?Date Complete: ? 10/08/2015 ? By: ??System Interface ? Date Reported: ? 10/08/2015 ? Interpretation RESULT: Negative for HPV. No E6 or E7 mRNA is detected from HPV types 16,18,31,33,35, 39,45,51,52,56,58,59,66, and 68 by application trainer mediated amplification. Comments Document reviewed and electronically signed by: ? System Interface ? Report date: 10/08/2015 By the signature above, the attending physician certifies th at he/she has personally conducted a gross and/or microscopic examin ation of the described specimens and rendered or confirmed the above diagnosis. End of Report Specimen (Source) Anatomical Location Collection Method / Collectio n Time Received Time / Laterality Volume 09/30/2015 10/02/2015 Zhanna Patrick APRN PATHOLOGY ORDERABLES Performing Organization Address City/State/ZIP Code Phon e Number [facility] [address] [place] [address] SERVICES documented in this encounter Visit Diagnoses Not on filedocumented in this encounter Care Teams Psychology Lecturer Relationship Specialty Start Date End Date Sirena Rossi, ROGE PCP - General 02/12/10 12/24/[address] [phone] documented as of this encounter
--- OUTSIDE RECORDS SUMMARY | 2022-09-16 12:33 | XMS_ITS | Encounter Summary ---
:1965 Author Organization [facility] Address [address] [place] [address] Care Team Providers Name Role Phone Sirena Rossi WARDROBE SPECIALTY WORKER Primary Care Provider Reason for Visit Reason Onset Date Comments Appointment Related 06/28/2011 Encounter Details Date Type Department Care Team Description 06/28/2011 Telephone [facility], Appointment Related Program - Lauro KANG [address] [place], [place] [address] Social History Tobacco Use Types Packs/Day Years Used Date Smoking Tobacco: Never Smokeless Tobacco: Never Alcohol Use Standard Drinks/Week Comments Yes 0 (1 standard drink = 0.6 oz pure alcoho l) occ Sex Assigned at Date Recorded Not on file documented as of this encounter Miscellaneous Notes Telephone Encounter - Jackson Butler - 06/28/2011 1647 EDT Called patient with date and time of MRI for 07/16 check in at 10:30 at [facility] and f/u with Dr Hutchinson separate day. Provided patient phone number if theses datesa dn times don't work for her. Jackson Butler documented in this encounter Plan of Treatment Not on filedocumented as of this encounter Visit Diagnoses Not on filedocumented in this encounter Care Teams Bobbin Winder Tender Relationship Specialty Start Date End Date Sirena Rossi, WARDROBE SPECIALTY WORKER PCP - General 02/12/10 12/24/15 [address] [facility] [address] [place] [phone] documented as of this encounter
--- OUTSIDE RECORDS SUMMARY | 2022-09-16 12:33 | XMS_ITS | Encounter Summary ---
:1965 Author Organization [facility] Address [address] [place] [address] Care Team Providers Name Role Phone Sirena Rossi PRODUCTION HELPER Primary Care Provider Encounter Details Date Type Department Care Team Description 10/25/2007 Results Only [facility] - Sirena Fung, PRODUCTION HELPER conversion [address] [place] [phone] (Wo rk) Social History Tobacco Use Types Packs/Day Years Used Date Smoking Tobacco: Never Assessed Sex Assigned at Date Recorded Not on file documented as of this encounter Plan of Treatment Not on filedocumented as of this encounter Procedures Procedure Name Priority Date/Time Associated Diagnosis Comme [facility] CYTOPATHOLOGY Routine 10/25/2007 0:00 EST Results for this procedure are i n the results section . documented in this encounter Results CYTOPATHOLOGY (10/25/2007 0:00 EST) Component Value Ref Test Analysis Performed At [facility] Method Time [facility] Pathology CYTOPATHOLOGY REPORT [facility] Report: [facility] Reports generated via electronic interface contain original data; however they are lacking the format of the original report. Caution should be taken when reading/interpreting unformatte d reports. Name: ? DORCAS GUALLPA ? Accession #: ? [id number] : ? 1965 (Age: 42) ??F ?Collect Date: ? 10/25/2007 Location: ? [facility] ? Receive Date: ? 10/29/2007 Provider: ?SIRENA ROSSI PRODUCTION HELPER Copy to: ? Specimen/Source: ? ThinPrep Pap Test, Cervix/Endocervix, processed on [employer] ThinPrep Imaging System, with manual evaluation Last Menstrual Period: ? 10/09/07 Hormonal/Contraceptive Status: ? Yes: [place]. Previous Gynecologic Pathology: ? Yes: 1 x abnormal pap Treatment History: ? Endometrial biopsy: ?2000 which was ok Other: ? HPVA - HPV testing requested if ASC-US on the current ThinPr ep Pap test. ? SPECIMEN ADEQUACY ? Satisfactory for Evaluation - transformation zone component present GENERAL CATEGORIZATION ? Negative for Intraepithelial Lesion or Malignancy INTERPRETATION ? Reactive cellular susna nges associated with inflammation present (includes repair). ? Document reviewed and electronically signed by: ? CASTILLO GIORDANO MD ? Report Date: ??11/01/2007 10:37 End of Report Specimen (Source) Anatomical Location Collection Method / Collectio n Time Received Time / Laterality Volume 10/25/2007 10/29/2007 Sirena Rossi NP PATHOLOGY ORDERABLES Performing Organization Address City/State/ZIP Code Phon e Number [facility] [address] [place] [address] SERVICES [facility] [address] [place] [address] documented in this encounter Visit Diagnoses Not on filedocumented in this encounter Care Teams Press Set Up Relationship Specialty Start Date End Date Sirena Rossi NP PCP - General 02/12/10 12/24/[address] [phone] documented as of this encounter
--- OUTSIDE RECORDS SUMMARY | 2022-09-16 12:33 | XMS_ITS ---
:1965 Author Care Team Providers Name Role Phone DR. JUDITH MERAZ Primary Care Provider [phone] DR. JUDITH MERAZ Referring Provider [phone] Allergies Code Code System Name Reaction Severity Status Onset RxNorm Amlodipine ? ? Active ? 745235 RxNorm Imitrex ? ? Active ? 8205952 RxNorm Latex ? ? Active ? 281361 RxNorm Lyrica ? ? Active ? 6809 RxNorm Metformin ? ? Active ? 51144 RxNorm Prozac ? ? Active ? Sulfa (Sulfonamide ? ? Active ? Antibiotics) 77951 RxNorm Tramadol ? ? Active ? Medications Name Status Start Date Stop Date ? ? atenolol 50 mg tablet Active ? Not availa ble Take 1 tablet every day by oral route. BD Ultra-Fine Mini Pen Needle 31 gauge x 16 Active ? Not available clotrimazole 1 % topical cream Active ? N ot available APPLY TO THE AFFECTED AND SURROUNDING A REAS OF SKIN BY TOPICAL ROUTE 2 TIMES PER DAY IN THE MORNING AND EVENING cyanocobalamin (vitamin B-12) 1,000 mcg capsule Active ? Not available Take 1 capsule every day by oral route. Docuprene 100 mg tablet Active ? Not avai lable Take 1 tablet twice a day by oral route. fluconazole 150 mg tablet Active ? Not av ailable furosemide 20 mg tablet Active ? Not avai lable Take 1 tablet every day by oral route. gabapentin 100 mg capsule Active ? Not av ailable Januvia 100 mg tablet Active ? Not availa ble lidocaine 5 % topical ointment Active ? N ot available APPLY TO AFFECTED AREA(S) BY TOPICAL ROUTE 1-4 TIMES DAILY N EEDED loratadine 10 mg capsule Active ? Not nadine ilable Take 1 capsule every day by oral route. Novolog Flexpen U-100 Insulin aspart 100 unit/mL (3 mL) Active ? Not available subcutaneous OneTouch Ultra Blue Test Strip Active ? N ot available test three times daily oxybutynin chloride 5 mg tablet Active ? Not available Take 1 tablet twice a day by oral route. polyethylene glycol 3350 8.5 gram oral powder packet Active ? Not available Take 1 packet every day by oral route. rosuvastatin 40 mg tablet Active ? Not av ailable Synthroid 200 mcg tablet Active ? Not nadine ilable Take 1 tablet every day by oral route. Ventolin HFA 90 mcg/actuation aerosol inhaler Active ? Not available Ventolin Refill 90 mcg/actuation aerosol inhaler Active ? Not available Inhale 1 puff every 4 hours by inhalation route as needed. Vitamin D3 Active ? Not available 1000 units daily Xopenex HFA 45 mcg/actuation aerosol inhaler Active ? Not available Inhale 2 puffs every 6 hours by inhalation route as needed. Problems Name Status Onset Date Source ? Verruca Plantaris Active ? ? Hypothyroidism Active ? ? Diabetes Mellitus Active ? ? Vitamin D Deficiency Active ? ? Hyperlipidemia Active ? ? Obesity Active ? ? Depressive Disorder Active ? ? Insomnia Active ? ? Posttraumatic Headache Active ? ? Iritis Active ? ? Hypertensive Disorder Active ? ? Atherosclerosis Active ? ? Peripheral Venous Insufficiency Active ? ? Allergic Rhinitis Active ? ? Asthma Active ? ? Hiatal Hernia Active ? ? Osteoarthritis Active ? ? Fibromyalgia Active ? ? Sleep Apnea Active ? ? Urinary Incontinence Active ? ? Screening for Malignant Neoplasm of Breast Active ? ? Procedures None recorded. Results Lab Results None recorded. Past Encounters None recorded. Social History Tobacco Smoking Status Never Smoker Vaccine List Vaccine Type Tdap 07/08/2019 Plan of Care Reminders Provider Appointments None recorded. ? ? Lab None recorded. ? ? Referral None recorded. ? ? Procedures None recorded. ? ? Surgeries None recorded. ? ? Imaging None recorded. ? ? Vitals Height Weight BMI Blood Pressure 157.48 cm 123.38 kg 49.7 kg/m2 118/70 mm[Hg]
--- OUTSIDE RECORDS SUMMARY | 2022-09-16 12:33 | XMS_ITS | Encounter Summary ---
:1965 Author Organization [facility] Address [address] [place] [address] Care Team Providers Name Role Phone Sirena Rossi REGIONAL OPERATIONS DIRECTOR Primary Care Provider Reason for Visit Reason Onset Date Comments Prior Auth, Other (i.e. radiology, etc.) 08/24/2010 Encounter Details Date Type Department Care Team Description 08/24/2010 Telephone [facility] GENERAL Willie Lamar Prior Auth, Other (i.e. SURGERY MD Dino radiology, etc.) [id number] [place] [address] [phone] (Wo rk) Social History Tobacco Use Types Packs/Day Years Used Date Smoking Tobacco: Never Assessed Sex Assigned at Date Recorded Not on file documented as of this encounter Miscellaneous Notes Telephone Encounter - Lizabeth Fontaine - 08/24/2010 0948 EST DOS - 09/21/2010 - CPT- 15221 - Morbid Obesity pre-op - [place] Medicaid - [place] documented in this encounter Plan of Treatment Not on filedocumented as of this encounter Visit Diagnoses Not on filedocumented in this encounter Care Teams Meter Technician Relationship Specialty Start Date End Date Sirena Rossi, REGIONAL OPERATIONS DIRECTOR PCP - General 02/12/10 12/24/[address] [phone] documented as of this encounter
--- OUTSIDE RECORDS SUMMARY | 2022-09-16 12:33 | XMS_ITS | Encounter Summary ---
:1965 Author Organization [facility] Address [address] [place] [address] Care Team Providers Name Role Phone Sirena Rossi MASK LAYOUT DESIGNER Primary Care Provider Encounter Details Date Type Department Care Team Description 09/21/2010 Hospital Encounter [facility] Checo Lamar Endoscopy Outpatient MD Dino [id number] [place] [phone] (Wo rk) Social History Tobacco Use Types Packs/Day Years Used Date Smoking Tobacco: Never Assessed Sex Assigned at Date Recorded Not on file documented as of this encounter Medications at Time of Discharge Medication Sig Dispensed Refills Start Date End Date albuterol (VENTOLIN) 90 Inhale 2 Puffs as 0 mcg/Actuation inhaler directed every 4 hours. amlodipine (NORVASC) 5 mg Take 2 Tabs by 60 Tab 6 2009 tablet mouth daily. Take as directed. atenolol (TENORMIN) 50 mg Take 75 mg by mouth 0 tablet daily. furosemide (LASIX) 20 mg Take 20 mg by mouth 0 tablet daily. Ibuprofen 200 mg Cap Take 600 mg by 0 08/23/2010 mouth as needed. INSULIN Inject 43 Units 0 08/23/2010 GLARGINE,HUM.REC.ANLOG into the skin (LANTUS SOLOSTAR SUBQ) daily. levothyroxine (SYNTHROID) Take 112 mcg by 0 08/23 112 mcg tablet mouth daily. lisinopril (PRINIVIL, Take 10 mg by mouth 0 ZESTRIL) 10 mg tablet daily. loratadine (CLARITIN) 10 Take 10 mg by mouth 0 mg tablet as needed. nystatin-triamcinolone Apply topically 2 0 2009 (MYCOLOG II) cream times daily. sertraline (ZOLOFT) 100 mg Take 200 mg by 0 tablet mouth daily. Lidocaine 4 % PtMd Apply topically as 0 0 06/23/2011 needed. phenazopyridine (PYRIDIUM) Take 200 mg by 0 06/23/2011 200 mg tablet mouth 3 times daily. pioglitazone (ACTOS) 30 mg Take 30 mg by mouth 0 06/23/2011 tablet daily. promethazine (PHENERGAN) Take 25 mg by mouth 0 06/23/2011 25 mg tablet every 6 hours as needed. simvastatin (ZOCOR) 80 mg Take 80 mg by mouth 0 06/23/2011 tablet at bedtime. sumatriptan (IMITREX) 100 Take 1 Tab by mouth 12 Tab 6 1 10/26/2009 06/23/2011 mg tablet once as needed for Migraine for 1 dose. Take not more than 8 days / month. May repeat once following 2 hours as needed. UNABLE TO FIND as needed. Med 0 08/23/20102010 Name: barley grass capsule UNABLE TO FIND Med Name: 0 06/23/2011 Osteodentz (calcium supplement) documented as of this encounter Discharge Disposition Disposition Code Departure Means Destination Home or Self [facility] documented in this encounter Progress Notes Physician oGrdon MD - 09/21/2010 0000 EST Physician Gordon MD - 09/21/2010 0000 EST documented in this encounter Procedure Notes Physician Gordon MD - 09/21/2010 0000 ESTAssociated Order(s): ORDERS - SCANNED; ORDERS - SCANNED Physician Gordon MD - 09/21/2010 0000 ESTAssociated Order(s): PROCEDURE REPORTS - SCANNED; PROCEDURE REPORTS - SCANNED Physician Gordon MD - 09/21/2010 0000 ESTAssociated Order(s): PATHOLOGY - SCANNED; PATHOLOGY - SCANNED Physician Gordon MD - 09/21/2010 0000 ESTAssociated Order(s): PROCEDURE REPORTS - SCANNED; PROCEDURE REPORTS - SCANNED documented in this encounter Miscellaneous Notes Scanned Note-Null - Physician Gordon MD - 09/21/2010 0000 EST Scanned Note-Null - Physician Gordon MD - 09/21/2010 0000 EST Brief Op Note - Physician Gordon MD - 09/21/2010 0000 EST documented in this encounter Plan of Treatment Pending Results Name Type Priority Associated Diagnoses Date/Ti me OUTSIDE CD - PLAIN FILM Imaging 05/2011 19:30 EDT MSK Scheduled Orders Name Type Priority Associated Diagnoses Order S chedule OUTSIDE CD - PLAIN Imaging For medic ations that can be FILM MSK administered at any time during the hosp italization for visit such as immunizations. for 1 Occurrences sta rting 06/23/2011 unti l 06/23/2011 documented as of this encounter Procedures Procedure Name Priority Date/Time Associated Diagnosis Comme nts PROCEDURE REPORTS - 09/27/2010 16:00 Resu lts for this SCANNED EST procedure are i n the results section. ORDERS - SCANNED 09/22/2010 10:17 Results for this EST procedure are i n the results section. PATHOLOGY - SCANNED 09/22/2010 10:17 Resu lts for this EST procedure are i n the results section. documented in this encounter Results PROCEDURE REPORTS - SCANNED (09/27/2010 16:00 EST) Specimen (Source) Anatomical Collection Method Collection Time Re ceived Time Location / / Volume Laterality 09/27/2010 16:00 EST Narrative This result has an attachment that is no t available. Procedure Note Physician Gordon MD - 09/21/2010 0: 00 EST Transcriptions Physician Gordon MD - 09/21/2010 0: 00 EST Physician Evan KANG PROCEDURE/MINOR SURGICAL ORD ERABLES Performing Organization Address City/State/ZIP Code Phon e Number [facility] POINT OF CARE ORDERS - SCANNED (09/22/2010 10:17 EST) Specimen (Source) Anatomical Collection Method Collection Time Re ceived Time Location / / Volume Laterality 09/22/2010 10:17 EST Narrative This result has an attachment that is no t available. Procedure Note Inpatient, MD Tyrell - 09/21/2010 0: 00 EST Physician Inpatient ADMISSION ORDERABLES Performing Organization Address [facility]/ZIP [facility] Phon e Number [facility] POINT OF CARE PATHOLOGY - SCANNED (09/22/2010 10:17 EST) Specimen (Source) Anatomical Collection Method Collection Time Re ceived Time Location / / Volume Laterality 09/22/2010 10:17 EST Narrative This result has an attachment that is no t available. Procedure Note Inpatient, MD Tyrell - 09/21/2010 0: 00 EST Physician Inpatient LAB INFO SERVICE AND SUPPORT & PHONE RESULT Performing Organization Address City/[facility]/ZIP [facility] Phon e Number [facility] POINT OF CARE documented in this encounter Visit Diagnoses Not on filedocumented in this encounter Care Teams Applications Consultant Relationship Specialty Start Date End Date Sirena Rossi, MASK LAYOUT DESIGNER PCP - General 02/12/10 12/24/[address] [place] [phone] documented as of this encounter
--- OUTSIDE RECORDS SUMMARY | 2022-09-16 12:33 | XMS_ITS | Encounter Summary ---
:1965 Author Organization [facility] Address [address] [place] [address] Care Team Providers Name Role Phone Sirena Rossi WEBSPHERE COMMERCE DEVELOPER Primary Care Provider Reason for Visit Reason Comments Back Pain Encounter Details Date Type Department Care Team Description 06/23/2011 Office Visit [facility] Luiz Kraft eration of lumbar Spine Program - MD Daron or lumbosacr al Lauro intervertebral disc [address] (Primary Dx) [place] [address] Social History Tobacco Use Types [...] Body Mass Index 54.93 06/23/2011 1555 EDT documented in this encounter Patient Instructions Patient InstructionsLuiz Kraft MD - 06/23/2011 16:49 EDT I will see you after your L MRI documented in this encounter Discharge Disposition Disposition Code Departure Means Destination Auto Discharge documented in this encounter Progress Notes Luiz Kraft MD - 06/23/2011 1635 EDT Kelin Galeana is being seen as a consultation from Dr. Rossi. Chief Complaint Patient presents with ??? Back Pain The encounter diagnosis was Degeneration of lumbar or lumbosacral intervertebral disc. HPI Kelin is seen for evaluation of severe low back and right leg pain starting about 10 years ago, during her pregnancies. She was in 1990, 1997 , 1998 and 2000. Kelin is to have a right total knee replacement on August 17, her walking is limited to about 3 to 5 minutes. When she has to go to a school conference and discuss with the teachers her three children's benchmarks, this will put her in bed for about 3 days. She goes shopping once a month with her 17-year-old. She sits thedoor with her 17-year-old knowing the store and where to get things. He reports back to mom. She is overwhelmed with her pain and the resulting limitations. In 11/24, she fell hitting her head on the ice. As a result of that, she has poor short-term memory,has daily severe headaches and is having a hard time coping with those issues, in addition to her low back pain. She is using lidocaine patches without help. Cyclobenzaprine 3 times a day is of questionable help. She has been treated for diabetes for the past year. Since her fall in 2008, she has gained over 100 pounds. Kelin has been incontinent for bladder and bowel for the past year and a half.She cannot feel when she needs to go. She is having trouble with her right leg giving out. She says that her back pain is normally around a 7. Her neck pain is a 3. She has pains ranging from 2 to 3, pr di much throughout her body, including pain in both hands, her right shoulder and her neck and occipital area. HPI There is no problem list on file for this patient. No past medical history on file. No past surgical history on file. History Substance Use Topics ??? Smoking status: Never Smoker ??? Smokeless tobacco: Never Used ??? Alcohol Use: Yes occ Family History Problem Relation Age of Onset ??? Collagen Disease Paternal Aunt Current outpatient prescriptions Medication Sig Dispense Refill ??? KETOROLAC TROMETHAMINE (KETOROLAC ORAL) Take by mouth 4 times daily. ??? CYCLOBENZAPRINE HCL (CYCLOBENZAPRINE ORAL) Take by mouth 3 times daily. ??? KETOROLAC TROMETHAMINE (TORADOL ORAL) Take 10 mg by mouth. ??? fluconazole (DIFLUCAN) 50 mg tablet Take 50 mg by mouth daily. ??? azithromycin (ZITHROMAX) 250 mg tablet Take 250 mg by mouth daily. ??? diclofenac (VOLTAREN) 50 mg EC tablet Take 50 mg by mouth 2 times daily. ??? NEEDLES, INSULIN DISPOSABLE (NOVOFINE MISC) by Misc.(Non-Drug; Combo Route) route. ??? nystatin-triamcinolone (MYCOLOG II) cream Apply topically 2 times daily. ??? albuterol (VENTOLIN) 90 mcg/Actuation inhaler Inhale 2 Puffs as directed every 4 hours. ??? amlodipine (NORVASC) 5 mg tablet Take 2 Tabs by mouth daily. Take as directed. 60 Tab 6 ??? sertraline (ZOLOFT) 100 mg tablet Take 200 mg by mouth daily. ??? INSULIN GLARGINE,HUM.REC.ANLOG (LANTUS SOLOSTAR SUBQ) Inject 43 Units into the skin daily. ??? Ibuprofen 200 mg Cap Take 600 mg by mouth as needed. ??? loratadine (CLARITIN) 10 mg tablet Take 10 mg by mouth as needed. ??? atenolol (TENORMIN) 50 mg tablet Take 75 mg by mouth daily. ??? levothyroxine (SYNTHROID) 112 mcg tablet Take 112 mcg by mouth daily. ??? lisinopril (PRINIVIL, ZESTRIL) 10 mg tablet Take 10 mg by mouth daily. ??? furosemide (LASIX) 20 mg tablet Take 20 mg by mouth daily. Allergies Allergen Reactions ??? Lyrica (Pregabalin) Rash and GI upset ??? Latex, Natural Rubber ??? Sulfa (Sulfonamide Antibiotics) Diarrhea and GI upset Review of Systems Constitutional: Chronic multiple problems HENT: Negative. Eyes: Positive for visual disturbance. Respiratory: Asthma 7 CPAP machine for 9 yrs Cardiovascular: HBP Gastrointestinal: Negative. Genitourinary: Positive for urgency, frequency and difficulty urinating. Musculoskeletal: Positive for back pain. Skin: Has basal cell CA on her head to be seen by dermatology Neurological: Positive for dizziness and syncope. Hematological: Bruises/bleeds easily. Psychiatric/Behavioral: The patient is nervous/anxious. Depression Physical Exam Constitutional: She is oriented to person, place, and time. She appears well- developed and well-nourished. HENT: Head: Normocephalic. Eyes: Pupils are equal, round, and reactive to light. Cardiovascular: Normal rate. Pulmonary/Chest: Effort normal. Neurological: She is alert and oriented to person, place, and time. Back Exam Comments: The patient has a slow unsteady gait requiring a cane. The motor and sensory exam of both upper & lower extremities is normal except for decreased sensation in both legs and feet and weakness of both EHLs. SLR is normal bilaterally. Reflexes of the biceps, triceps, knees and ankles are normal. Forward flexion at the waist is to 30 deg. Cervical ROM is limite to 45 deg on rotation to herleft and right. Neurologic Exam Mental Status Oriented to person, place, and time. Cranial Nerves CN III, IV, Pupils are equal, round, and reactive to light. Assessment Other Orders Placed This Visit Procedure ??? Mr lumbar spine wo contrast Plan: Kelin's lumbar spine x-ray taken on January 17 shows mild disk narrowing at L4-5 and facet arthropathy at L3-4, L4-5 and L5-S1. I discussed with Kelin that there is not a specific treatment that we can give her that will make a huge difference in her quality of life right now. Her obesity makes surgery unlikely despite what we find on the MRI. I will go ahead and get a lumbar MRI in the open machine to see if that identifies any particular target areas that we might treat with injections.Losing weight will not particularly affect her back pain, but I would expect treatment to be perhapsmore effective. When I see her again, I will also discuss with her pain management through a programlike Dr Whitney's program, continuing with pain management as Nurse Practitioner Flo sees indicatedis appropriate. CC WEBSPHERE COMMERCE DEVELOPER Flo Addendum 08/11/11: Kelin was a no show for her apt today and she did not answer her phone. I lefta message for her to return my call. I have not gone over her Oct. 1 L MRI which shows mild DD changes at L3-4 and L4-5 documented in this encounter Plan of Treatment Not on filedocumented as of this encounter Procedures Procedure Name Priority Date/Time Associated Diagnosis Comme nts MR LUMBAR SPINE WO 07/16/2011 11:45 Resul ts for this CONTRAST EDT procedure are i n the results section. documented in this encounter Results MR LUMBAR SPINE WO CONTRAST (07/16/2011 11:45 EDT) Anatomical Region Laterality Modality Other Specimen Anatomical Collection Method Collection Time Receive d Time (Source) Location / / Volume Laterality 07/16/2011 11:45 07/16/2011 EDT 18:15 EDT Narrative 07/16/2011 18:15 EDT Lumbar ??spine MR without contrast Indication: Back pain Technique: Sagittal T1, T2, and inversio n recovery, axial T1 and T2, and coronal T2 with fat suppression imag es are obtained of lumbar spine without use of contrast. Findings: The first segment of sacrum is transitio nal forming rudimentary disc space with S2 and is labeled S1 for the purpose of this dictation placing conus medullaris ending at L1-L2 level. There is degenerative change in the lumbar spine in which find ings include facet joint hypertrophic osteophytes and ligamentum flavum thickening particularly in the lower lumbar spine. There is degenerative disc disease with loss of disc space signal o n long TR scans particularly at the L4-L5 level and T12-L1 levels. No acute edema pattern is seen on inversion recovery. There is some cur vature in lumbar spine, convex left and maximum at the L3-L4 lev el. There is fluid seen in the hip joints bilaterally likely physio logic. No focal herniation or foraminal stenosi s is seen at the L1-L2 level. At the L2-L3 level, no focal herniation or foraminal stenosis is present. At the L3-L4 level, there is no focal he rniation or foraminal stenosis, and there is mild central yohana l stenosis is present which relates to facet arthropathy and epidura l lipomatosis.. At the L4-L5 level there is a diffuse co ncentric disc bulge present with more focal protrusion at left caren inal-lateral location. There is a left foraminal narrowing related to facet arthropathy more so than right foraminal narrowing at this l evel. There is a mild component of central canal stenosis whic h is exacerbated by prominent epidural fat in the lumbar region. At the L5-S1 level, concentric bulge is present without focal herniation with no significant foraminal stenosis or central canal stenosis. Impression: 1. Concentric disc bulges at the L3-L4 l evel and L4-L5 levels in which there appears to be a more focal l eft foraminal-lateral protrusion at L4-L5 with left more than right foraminal narrowing at that level. 2. Multilevel facet arthropathy which re sults in a mild degree of foraminal narrowing at the L4-L5 level l eft more than right. 3. Transitional lumbosacral junction in which the first segment of the sacrum forms a rudimentary disc spac e with S2. 4. Prominent epidural fat in the spinal canal consistent with epidural lipomatosis. 5. Mild central canal stenosis at the L3 -L5 and L4-L5 levels which relates to prominent epidural lipomatosi s as well as some facet arthropathy and degenerative disc diseas e. 6. Levocurvature in lumbar spine. Procedure Note 07/16/2011 Lumbar spine MR without contrast Indication: Back pain Technique: Sagittal T1, T2, and inversio n recovery, axial T1 and T2, and coronal T2 with fat suppression imag es are obtained of lumbar spine without use of contrast. Findings: The first segment of sacrum is transitio nal forming rudimentary disc space with S2 and is labeled S1 for the purpose of this dictation placing conus medullaris ending at L1-L2 level. There is degenerative change in the lumbar spine in which find ings include facet joint hypertrophic osteophytes and ligamentum flavum thickening particularly in the lower lumbar spine. There is degenerative disc disease with loss of disc space signal o n long TR scans particularly at the L4-L5 level and T12-L1 levels. No acute edema pattern is seen on inversion recovery. There is some cur vature in lumbar spine, convex left and maximum at the L3-L4 lev el. There is fluid seen in the hip joints bilaterally likely physio logic. No focal herniation or foraminal stenosi s is seen at the L1-L2 level. At the L2-L3 level, no focal herniation or foraminal stenosis is present. At the L3-L4 level, there is no focal he rniation or foraminal stenosis, and there is mild central yohana l stenosis is present which relates to facet arthropathy and epidura l lipomatosis.. At the L4-L5 level there is a diffuse co ncentric disc bulge present with more focal protrusion at left caren inal-lateral location. There is a left foraminal narrowing related to facet arthropathy more so than right foraminal narrowing at this l evel. There is a mild component of central canal stenosis whic h is exacerbated by prominent epidural fat in the lumbar region. At the L5-S1 level, concentric bulge is present without focal herniation with no significant foraminal stenosis or central canal stenosis. Impression: 1. Concentric disc bulges at the L3-L4 l evel and L4-L5 levels in which there appears to be a more focal l eft foraminal-lateral protrusion at L4-L5 with left more than right foraminal narrowing at that level. 2. Multilevel facet arthropathy which re sults in a mild degree of foraminal narrowing at the L4-L5 level l eft more than right. 3. Transitional lumbosacral junction in which the first segment of the sacrum forms a rudimentary disc spac e with S2. 4. Prominent epidural fat in the spinal canal consistent with epidural lipomatosis. 5. Mild central canal stenosis at the L3 -L5 and L4-L5 levels which relates to prominent epidural lipomatosi s as well as some facet arthropathy and degenerative disc diseas e. 6. Levocurvature in lumbar spine. Luiz Kraft MD IMG MRI ORDERABLES documented in this encounter Visit Diagnoses Diagnosis Degeneration of lumbar or lumbosacral in tervertebral disc - Primary documented in this encounter Discontinued Medications Medication Sig Discontinue Reason Start Date End Date phenazopyridine Take 200 mg by 06/23/2011 (PYRIDIUM) 200 mg tablet mouth 3 times daily. Lidocaine 4 % PtMd Apply topically as 08/26/201005/2011 needed. sumatriptan (IMITREX) 100 Take 1 Tab by mouth 08/26/20 10 06/23/2011 mg tablet once as needed for Migraine for 1 dose. Take not more than 8 days / month. May repeat once following 2 hours as needed. UNABLE TO FIND as needed. Med 08/23/2010 06/23/2011 Name: barley grass capsule UNABLE TO FIND Med Name: 06/23/2011 Osteodentz (calcium supplement) pioglitazone (ACTOS) 30 Take 30 mg by mouth 06/23/2011 mg tablet daily. promethazine (PHENERGAN) Take 25 mg by mouth 0 06/23/2011 25 mg tablet every 6 hours as needed. simvastatin (ZOCOR) 80 mg Take 80 mg by mouth 06/23/2011 tablet at bedtime. documented as of this encounter Historical Medications This list may reflect changes made after this encounter. Medication Sig Dispensed Refills Start Date End Date NEEDLES, INSULIN DISPOSABLE by Misc.(Non-Drug; 0 (NOVOFINE MISC) Combo Route) route. diclofenac (VOLTAREN) 50 mg Take 50 mg by 0 EC tablet mouth 2 times daily. azithromycin (ZITHROMAX) 250 Take 250 mg by 0 mg tablet mouth daily. fluconazole (DIFLUCAN) 50 mg Take 50 mg by 0 tablet mouth daily. KETOROLAC TROMETHAMINE Take 10 mg by 0 (TORADOL ORAL) mouth. CYCLOBENZAPRINE HCL Take 10 mg by 0 06/23/2011 (CYCLOBENZAPRINE ORAL) mouth 3 times daily. KETOROLAC TROMETHAMINE Take by mouth 4 0 06/23/20 11 (KETOROLAC ORAL) times daily. added in this encounter Care Teams Pick And Shovel Worker Relationship Specialty Start Date End Date Sirena Rossi NP PCP - General 02/12/10 12/24/[address] [place] [phone] documented as of this encounter
--- OUTSIDE RECORDS SUMMARY | 2022-09-16 12:33 | XMS_ITS | Encounter Summary ---
:1965 Author Organization [facility] Address [address] [place] [address] Care Team Providers Name Role Phone Sirena Rossi LIQUEFIED NATURAL GAS PLANT OPERATOR Primary Care Provider Reason for Visit Reason Onset Date Comments Other 10/28/2010 Encounter Details Date Type Department Care Team Description 10/28/2010 Telephone [facility] Bariatric Gypsy Seals MD Other Surgery - [place] [address] [phone] (Wo rk) Social History Tobacco Use Types Packs/Day Years Used Date Smoking Tobacco: Never Assessed Sex Assigned at Date Recorded Not on file documented as of this encounter Miscellaneous Notes Telephone Encounter - Abimbola Gray - 10/28/2010 0475 EST Kelin has called to let us know that she feels there are too many medical issues in her life at this time and wants to address other issues prior to pursuing Bariatric surgery documented in this encounter Plan of Treatment Not on filedocumented as of this encounter Visit Diagnoses Not on filedocumented in this encounter Care Teams Welt Sole Layer Relationship Specialty Start Date End Date Sirena Rossi, LIQUEFIED NATURAL GAS PLANT OPERATOR PCP - General 02/12/10 12/24/[address] [phone] documented as of this encounter
--- OUTSIDE RECORDS SUMMARY | 2022-09-16 12:33 | XMS_ITS | Encounter Summary ---
:1965 Author Organization [facility] Address [address] [place] [address] Care Team Providers Name Role Phone Zhanna Francois JESSE Primary Care Provider Encounter Details Date Type Department Care Team Description 09/03/2018 Hospital Encounter [facility] - S Unknown, Pro Kelli carmona MD 1 [facility] [phone] [place] [address] (Work) [phone] Social History Tobacco Use Types Packs/Day Years [...] by mouth 0 250 mg tablet daily. budesonide-formoterol Inhale 2 Puffs as 0 (SYMBICORT) 160-4.5 directed 2 times mcg/Actuation HFAA inhaler daily. cetirizine (ZYRTEC) 10 mg Take 10 mg by mouth 0 tablet daily. clobetasol (TEMOVATE) 0.05 Apply topically once 45 g 1 09/21/2011 % ointment a day to affected areas on right wrist. Do not apply to face, armpit or groin. CYCLOBENZAPRINE HCL Take 10 mg by mouth 0 011 (CYCLOBENZAPRINE ORAL) 3 times daily. diclofenac (VOLTAREN) 50 mg Take 50 mg by mouth 0 EC tablet 2 times daily. fluconazole (DIFLUCAN) 50 Take 50 mg by mouth 0 mg tablet daily. fluticasone (FLOVENT) 110 Inhale 110 mcg as 0 mcg/Actuation inhaler directed 2 times daily. fluticasone-salmeterol Inhale 1 Puff as 0 (ADVAIR) 250-50 mcg/dose directed 2 times diskus inhaler daily. furosemide (LASIX) 20 mg Take 20 mg by mouth 0 tablet daily. Ibuprofen 200 mg Cap Take 600 mg by mouth 0 08/23 as needed. insulin aspart (NOVOLOG Inject into the skin 0 FLEXPEN) 100 unit/mL 3 times daily with injection pen meals. INSULIN Inject 43 Units into 0 08/23/2010 GLARGINE,HUM.REC.ANLOG the skin daily. (LANTUS SOLOSTAR SUBQ) KETOROLAC TROMETHAMINE Take by mouth 4 0 06/23/20 11 (KETOROLAC ORAL) times daily. KETOROLAC TROMETHAMINE Take 10 mg by mouth. 0 (TORADOL ORAL) LEVALBUTEROL HCL (XOPENEX Inhale 2 Puffs as 0 INHL) directed every 4 hours as needed. levothyroxine (SYNTHROID) Take 112 mcg by 0 08/23 112 mcg tablet mouth daily. levothyroxine (SYNTHROID) Take 175 mcg by 0 175 mcg tablet mouth daily. lisinopril (PRINIVIL, Take 10 mg by mouth 0 ZESTRIL) 10 mg tablet daily. lisinopril (PRINIVIL, Take 20 mg by mouth 0 ZESTRIL) 20 mg tablet daily. loratadine (CLARITIN) 10 mg Take 10 mg by mouth 0 08/23/2010 tablet as needed. NEEDLES, INSULIN DISPOSABLE by Misc.(Non-Drug; 0 (NOVOFINE MISC) Combo Route) route. nystatin-triamcinolone Apply topically 2 0 2009 (MYCOLOG II) cream times daily. pravastatin (PRAVACHOL) 80 Take 80 mg by mouth 0 mg tablet daily. sertraline (ZOLOFT) 100 mg Take 200 mg by mouth 0 tablet daily. documented as of this encounter Discharge Disposition Disposition Code Departure Means Destination Home or Self Detention documented in this encounter Plan of Treatment Not on filedocumented as of this encounter Visit Diagnoses Not on filedocumented in this encounter Care Teams Energy Sales Broker Relationship Specialty Start Date End Date Zhanna Francois APRN PCP - General 12/25/15 10/15/[address] [place] [address] documented as of this encounter
--- OUTSIDE RECORDS SUMMARY | 2022-09-16 12:33 | XMS_ITS | Encounter Summary ---
:1965 Author Organization [facility] Address [address] [place] [address] Care Team Providers Name Role Phone Zhanna Francois APRN Primary Care Provider Encounter Details Date Type Department Care Team Description 09/03/2018 Results Only [facility]- Yulisa Mandujano, [address] [place], [place] [id number] (Wo rk) Social History Tobacco Use Types [...] Procedure Name Priority Date/Time Associated Diagnosis Comme [facility] SURGICAL PATHOLOGY Routine 09/03/2018 16:03 Resul ts for this EST procedure are i n the results section. documented in this encounter Results SURGICAL PATHOLOGY (09/03/2018 16:03 EST) Component Value Ref Test Analysis Performed At [facility] Method Time Signature Pathology SURGICAL PATHOLOGY REPORT [facility] MEDICAL Report: Reports generated via electronic interface contain origina l data; CENTER however they are lacking the format of the original report. LABORATORY Caution should be taken when reading/interpreting unformat jm reports. SERVICES Name: ? DORCAS GUALLPA ? Accession #: ? [id number] ? : ? 1965 (Age: [age]) ??F ? Collect Date: ? 09/03/2018 ? Location: ? [facility] ? Receive Date: ? 09/04/2018 ? Provider: YULISA KHAN DO Copy to: JUDITH MERAZ MD ? Final Pathologic Diagnosis: A. ??SKIN OF PREAURICULAR REGION, RIGHT, SHAVE BIOPSY: - Melanocytic nevus, intradermal type. B. ??SKIN OF MANDIBLE, RIGHT MID, SHAVE BIOPSY: - Melanocytic nevus, intradermal type. C. ??SKIN OF CHEST, RIGHT, SHAVE BIOPSY: - Melanocytic nevus, intradermal type. Microscopic Description: Sections are of a papule with mild epidermal hyperplas ia and hyperkeratosis. There is a proliferation of melanocytes within the dermis. ??The proliferation consists of nests, cords, and strands that dimin skyler in size with descent into the dermis. ??The melanocyte s are slightly enlarged but generally have round-oval nuclei and a moderate amount of cytoplasm. ??The melanocytes show midwife and birth center owner maturation. ??(Dr. Borrego)/jds Document reviewed and electronically signed by: CAMMIE BORREGO MD Report ??Date: 09/05/2018 16:23 By the signature above, the attending physician certifies th at he/she has personally conducted a gross and/or microscopic examin ation of the described specimens and rendered or confirmed the above diagnosis. Specimen(s) Received: A. ??Right preauricular B. ??Right mid mandible C. ??Right chest Clinical History: H/O basal cell skin cancer; fax results to Gross Description: A. ?Received in formalin labelled with proper patie nt identification (initials G, M) and right pre-auricular is an ovoid skin shave, 0.5 x 0.4 x 0.1 cm. The skin surface is dusky brown keating. The margin is inked. Bisected and entirely submitted in A1. B. ?Received in formalin labelled with proper patie nt identification (initials G, M) and right m id mandible is an irregular skin shave, 0.5 x 0.3 x 0.1 cm. The skin surface is dull keating. The margin is inked. Bisected and entirely submitted in B1. C. ?Received in formalin labelled with proper patie nt identification (initials G, M) and right c hest is a rubbery ovoid skin shave, 0.6 x 0.5 x 0.1 cm. The skin surface is mottled mak-keating. The margin is in ked. Bisected and entirely submitted in C1. HAYLEY Colin (ASCP) 09/04/2018 4:31 PM End of Report Specimen Anatomical Collection Method Collection Time Receive d Time (Source) Location / / Volume Laterality 09/03/2018 16:03 09/04/2018 EST 16:03 EST Yulisa Khan DO PATHOLOGY ORDERABLES Performing Organization Address City/State/ZIP Code Phon e Number [facility] [address] [place] [id number] SERVICES documented in this encounter Visit Diagnoses Not on filedocumented in this encounter Care Teams Manager Pest Relationship Specialty Start Date End Date Zhanna Francois APRN PCP - General 12/25/15 10/15/[address] [place] [address] documented as of this encounter
--- OUTSIDE RECORDS SUMMARY | 2022-09-16 12:33 | XMS_ITS | Encounter Summary ---
:1965 Author Organization [facility] Address [address] [place] [address] Care Team Providers Name Role Phone Sirena Rossi ACCOUNT ANALYST Primary Care Provider Encounter Details Date Type Department Care Team Description 12/22/2015 Hospital Encounter [facility] [place] Unknown, Provider, [facility] 0 [facility] [phone] [place] [address] (Work) [phone] Social History Tobacco Use Types Packs/Day Years [...] on filedocumented in this encounter Care Teams Intelligence Operations Specialist Relationship Specialty Start Date End Date Sirena Rossi, ROGE PCP - General 02/12/10 12/24/[address] [phone] documented as of this encounter
--- OUTSIDE RECORDS SUMMARY | 2022-09-16 12:33 | XMS_ITS | Encounter Summary ---
:1965 Author Organization [facility] Address [address] [place] [address] Care Team Providers Name Role Phone FloYvonneSirena W SHIP CAPTAIN Primary Care Provider Reason for Visit Reason Comments Obesity pre op Encounter Details Date Type Department Care Team Description 08/23/2010 Office Visit [facility] Gypsy Pimentel Morbi d obesity Bariatric Surgery - MD ([facility] (Primary Dx) [address] [address] [place], [place] [phone] Social History Tobacco Use Types Packs/Day Years Used Date Smoking Tobacco: Never Assessed Sex Assigned at Date Recorded Not on file documented as of this encounter Last Filed Vital Signs Vital Sign Reading Time Taken Comments Blood Pressure 124/72 08/23/2010 0841 EST Pulse 64 08/23/2010 0841 EST Temperature - - Respiratory Rate - - Oxygen Saturation - - Inhaled Oxygen Concentration - - Weight 143.6 kg (316 lb 9.6 oz) 08/23/2010 0841 EST Height 163 cm (5' 4.17) 08/23/2010 0841 EST Body Mass Index 54.05 08/23/2010 0841 EST documented in this encounter Patient Instructions Patient InstructionsLori Wayne - 08/23/2010 10:00 EST 3 meals + 1-2 snacks a day Food logs everyday = 1500 calories or less/day - use nutrition labels, and calorie henna book, or theinternet 45 grams carbs per meal 15 grams per snack Protein and fiber at every meal and snack to help you feel full Proteins: Lean meats (chicken, turkey, fish, LEAN red meat and pork, deli meats: turkey and ham are leanest), eggs, low fat dairy: yogurt, cheeses (1oz per serving), cottage cheese, nuts (1 oz per serving), peanut putter, seeds, beans, hummus Fiber: Fruits, Veggies, Whole Grains: AT LEAST 3 grams of fiber per serving of any carbohydrate you eat, crackers (Finnlandia, WASA, AK-VINNY, Triscuts, High fiber wheat thins), cereals (cheerios, shredded wheat, kashi), Grains: brown rice, whole wheat pasta, quinoa, ect, Breads: whole grain: 3 grams carbs per serving Increase exercise to 20-30 mins, 4-5 times a week documented in this encounter Progress Notes Lori Wayne - 08/23/2010 0952 EST Bariatric Clinic - Initial Nutritional Assessment 08/23/2010 Evaluation for Gastric Sleeve vs. Bypass Subjective: Patient is 45 y.o. female here for nutritional assessment for the above bariatric surgery. Pt with diabetes. FS had been up in the 300's but pt is now on insulin and FS down to 140's. 43 units lantus. Nutrition/diet history: Family/other support system: large family: mother is a nurse, sister is PT, other sister is a nurse,brother-in law is MD + 4 person team from [facility]. Menu planning/shopping: patient Who does the cooking: patient, her 12 year old son helps Eating out frequency:couple times a week - mostly dinner Prior weight loss attempts: medically supervised diet: 3oz protein + potasium tablet Patient's diet has changed since 3 day food record was kept: 4 person team from [facility] accountability, exercise, whole wheat carbs, no refined sugars, no potatoes, occasional sweet potato, much smallerportions, lots of veggies (not as many fruits, but has been increasing). [facility] in [facility]. Allergies Allergen Reactions ??? Lyrica (Pregabalin) Rash and GI upset ??? Latex, Natural Rubber ??? 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 Reasons for limited exercise: lack of time, motivation Objective: BP 124/72 Pulse 64 Ht 163 cm (64.17) Wt 143.609 kg (316 lb 9.6 oz) Body mass index is 54.05 kg/(m^2). Excess BW: 196# 5% Wt Loss or Goal Wt: 10%: 31lbs Estimated Body Wt after Surgery: 218 (-187#) Patient was counseled on keeping a food diary and pre-op weight loss expectations Patient has the following barriers to learning: cognitive - short term loss 2' head injury Assessment: Patient seems to be an appropriate candidate for bariatric surgery based on multiple failed weight loss attempts and BMI and comorbidities. Patient has already made significant positive changes in diet: see above. Patient needs to make the following changes prior to next visit include protein at least 3 times a day,, keep food records, and add 5 servings of fruits/vegetables each day, less than 1500 calories a day, 45 CHO per meal, 15 CHO per snack. Patient needs to make the following changes in exercise prior to next visit: increase time to 120-150 minutes a week. Patient appears to comprehend requirements. Plan: Patient will be evaluated for changes in diet as above and maintain a food diary including foods consumed and calories calculated, see pt instructions Patient is expected to bring at least 1 week of food diaries to second visit for review. Patient will lose 1-2 pounds a week, or at least 31# by day of surgery Lori Wayne RD 08/23/2010 9:23 Gypsy Pimentel MD - 08/23/2010 0936 EST 08/23/2010 Chief Complaint: Kelin Galeana is a 45 y.o. female seen today in consultation at the request of SIRENA Brown for consideration of surgical treatment for her morbid obesity. HPI: Kelin Galeana has had weight problems since childhood. She has tried Weight Watchers, Exercise and multiple weight loss programs with the following results: no long-term success. Their maximum weight loss has been 75-90 pounds, and their highest weight has been 316. The patient's primary motivation for weight loss is health, mobility and longevity. 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 Gallbladder: as/p cholecystectomy Prior abdominal surgeries: laparoscopic cholecystectomy, x2 and Ovarian cystectomy x2 openand laparoscopy. No past surgical history on file. R knee surgery x 4 Gastric problems/issues: On / off GERD symptoms. There is no problem list on file for this patient. Allergies: Lyrica, Latex, natural rubber and Sulfa (sulfonamide antibiotics) Social History: History Substance Use Topics ??? Tobacco Use: Not on file ??? Alcohol Use: Not on file Review of Systems: A ten point review of systems was performed. Pertinent positives are listed below, all others are negative. Physical Exam: BP 124/72 Pulse 64 Ht 163 cm (64.17) Wt 143.609 kg (316 lb 9.6 oz) Body mass index is 54.05 kg/(m^2). General Appearance: healthy appearing, alert, in no apparent distress, well developed, well nourished, morbidly obese and cooperative HEENT: PERRLA, Neck supple with midline trachea, Thyroid without masses and Trachea midline Cardiovascular: PMI normal. No lifts, heaves, or thrills. RRR. Heart sounds normal. No murmurs, clicks or gallops. Abdominal aorta pulsation normal. Carotid, femoral and pedal pulses 2+ bilaterally. Noarterial bruits. No peripheral edema. Abdomen: soft, non-tender; bowel sounds normal; no masses, no organomegaly, healed scars , no hernias. Pannus: moderate Skin: Skin color, texture, turgor normal. No rashes or lesions. Extremities: normal strength, tone, and muscle mass, no deformities, no erythema, induration, or nodules, no evidence of joint effusion, gait was normal for age, no musculoskeletal defects noted Assessment: I spent 45 minutes with this patient. Over 50% of this appointment was spent in face to face counseling, discussing this patient's medical profile as it relates to the benefits and risks of gastric bypass/lap band surgery and reviewed an on- line LEIF tutorial the patient watched covering the way weight loss surgery is done, how it causes weight loss, potential risks and complications, impact on eating and critical nature of exercise and follow up to a good outcome. The patient acknowledges a pre-op BMI goal of 10%. I explained in detail the procedures that we are performing. All of these procedures can be performed laparoscopically or open. The patient was made aware of the followin. As we perform these procedures laparoscopically, there is a chance to convert to open if any technical challenges or complications do occur. 2. Bariatric surgery is not cosmetic surgery and should not be thought of in any way as cosmetic surgery. It does not involve the removal of adipose tissue by surgery or removal by suctioning. 3. Long-life commitment is a very important part of his/her decision along with lifestyle changes including diet, exercise, and behavior changes. 4. Problems after surgery may require more operations to correct them. 5. Patient will need to be on a liquid/protein diet for at least 2 weeks prior to surgery. 6. she was advised against during the first year after the procedure. The risks, benefits and alternatives of all of the procedures were explained in detail including, but not limited to , anesthesia and medication adverse effect/DVT, pulmonary embolism, trocar site/incisional hernia, wound infection, bleeding, failure to lose weight or gain weight and change in body image. With regard to the band, the risks and benefits were explained. The risks associated with the band include, but are not limited to: gastric/esophageal perforation, access port leakage, infection or twisting that may require an additional operation, failure to lose weight or gaining weight, nausea, vomi ting, outlet obstruction, pouch and esophageal dilatation, gastroesophageal reflux disease symptoms,band migration/slippage or erosion. For the gastric bypass the risks include but not limited to the following early complications: anastomotic leak/peritonitis, acute distal gastric dilatation, [place] limb obstruction, severe & minor wound infection/seroma, and nausea/vomiting. Late complications of gastric bypass can include but are not limited to: stomal stenosis, marginal ulcer, SBO/internal,incisional hernia, staple line disruption (GGF) and metabolic complications with calcium, thiamine, vitamin B12, folate, iron and anemia. Regarding the sleeve the risks include but are not limited to: internal visceral/ organ injury, bleeding, infection, leak, stenosis and possibility of regaining weight. The patient understands the surgical procedures and the different surgical options that are available. She understands the lifestyle changes that would be required after surgery and has agreed to participate in a pre-operative and postoperative weight management program. She understands the risks involved as well, including a leak, a blood clot developing in a leg and migrating to the lungs as a pulmonary embolus, conversion to open surgery, and . Kelin has attended the preoperative bariatric education class and has had additional opportunity to address specific concerns. I think she is a good candidate for this surgery, and her expectations from the surgery are reasonable. Plan: She was asked to Schedule a follow-up appt with our hot repairman and our nurse practitioner, Amada. We will obtain the results of the following: EGD and lab work. Kelin Galeana is an appropriate candidate for Gastric Sleeve/ RYGBP surgery pending test results.. For the next visit she was advised to come with her family ( mother 69 y working as a nurse, son 19 ycollege student, 2 other boys 12 & 9 years. . Seen and discussed with Egg Breaking Machine Operator at this visit. Gypsy Martinez MD 08/23/2010 9:23 documented in this encounter Miscellaneous Notes Scanned Note-Null - Dylan Pack Worker Supervisor - 07/21/2011 1204 EDT documented in this encounter Plan of Treatment Scheduled Orders Name Type Priority Associated Diagnoses Order S chedule UPPER ENDOSCOPY GI Routine Morbid obesity (CMS-HCC) Ordered: 08/23/2010 documented as of this encounter Visit Diagnoses Diagnosis Morbid obesity (HCC-[facility]) (HCC) - Primary Morbid obesity documented in this encounter Discontinued Medications Medication Sig Discontinue Reason Start Date End Date sertraline (ZOLOFT) 50 Take 100 mg by Patient Stopped Taking 08/23/2010 mg tablet mouth daily. simvastatin (ZOCOR) 40 Take 40 mg by Error 07/20/201005/2010 mg tablet mouth 2 times daily as needed. documented as of this encounter Historical Medications This list may reflect changes made after this encounter. Medication Sig Dispensed Refills Start Date End Date Ibuprofen 200 mg Cap Take 600 mg by mouth 0 08/23 as needed. INSULIN Inject 43 Units into 0 08/23/2010 GLARGINE,HUM.REC.ANLOG the skin daily. (LANTUS SOLOSTAR SUBQ) sertraline (ZOLOFT) 100 Take 200 mg by mouth 0 mg tablet daily. UNABLE TO FIND Med Name: 0 06/23/2011 Osteodentz (calcium supplement) UNABLE TO FIND as needed. Med Name: 0 08/23/2010 06/23/2011 barley grass capsule simvastatin (ZOCOR) 80 mg Take 80 mg by mouth 0 06/23/2011 tablet at bedtime. added in this encounter Care Teams Hair Spring Cutter Relationship Specialty Start Date End Date Sirena Rossi NP PCP - General 02/12/10 12/24/[address] [place] [address] [phone] documented as of this encounter
--- OUTSIDE RECORDS SUMMARY | 2022-09-16 12:33 | XMS_ITS | Encounter Summary ---
:1965 Author Organization [facility] Address [address] [place] [address] Care Team Providers Name Role Phone Sirena Rossi [employer] DESIGNER Primary Care Provider Encounter Details Date Type Department Care Team Description 11/24/2006 Results Only [facility] - Maulik Cummins ARNP [facility] 14 [facility] [address] [place], [place] [id number] [place] [address] [phone] Social History Tobacco Use Types Packs/Day Years Used Date Smoking Tobacco: Never Assessed Sex Assigned at Date Recorded Not on file documented as of this encounter Plan of Treatment Not on filedocumented as of this encounter Procedures Procedure Name Priority Date/Time Associated Diagnosis Comme [facility] CYTOPATHOLOGY Routine 11/24/2006 0:00 EST Results for this procedure are i n the results section . documented in this encounter Results CYTOPATHOLOGY (11/24/2006 0:00 EST) Component Value Ref Test Analysis Performed At [facility] Method Time Signature Pathology CYTOPATHOLOGY REPORT MIMA Report: [facility] Reports generated via electronic interface contain original data; however they are lacking the format of the original report. Caution should be taken when reading/interpreting unformatte d reports. Name: ? DORCAS GUALLPA ? Accession #: ? [id number] : ? 1965 (Age: 41) ??F ?Collect Date: ? 11/24/2006 Location: ? [facility] ? Receive Date: ? 11/28/2006 Provider: ?MAULIK MCCLELLAND Copy to: ? Specimen/Source: ? ThinPrep Pap Test, Cervix/Endocervix, processed on [employer] ThinPrep Imaging System, with manual evaluation Last Menstrual Period: ? 11/10/06 Treatment History: ? Colposcopy: normal 8-9 years ago Miscellaneous treatment: Bx normal 8-9 years ago Other: ? Additional clinical information: Abnl pap 8-9 yrs ago had Co lpo + Bx - NL HPVA - HPV testing requested if ASC-US on the current ThinPr ep Pap test. ? SPECIMEN ADEQUACY ? Satisfactory for Evaluation - transformation zone component present GENERAL CATEGORIZATION ? Negative for Intraepithelial Lesion or Malignancy ? Document reviewed and electronically signed by: ? YOUNG SPANGLER MD ? Report Date: ??12/04/2006 10:22 End of Report Specimen (Source) Anatomical Location Collection Method / Collectio n Time Received Time / Laterality Volume 11/24/2006 11/28/2006 Maulik MCCLELLAND PATHOLOGY ORDERABLES Performing Organization Address City/State/ZIP Code Phon e Number [facility] [address] [place] [address] [facility] [address] [place] [address] documented in this encounter Visit Diagnoses Not on filedocumented in this encounter Care Teams Ream Cutter Relationship Specialty Start Date End Date Sirena Rossi NP PCP - General 02/12/10 12/24/[address] [place] [phone] documented as of this encounter
--- OUTSIDE RECORDS SUMMARY | 2022-09-16 12:33 | XMS_ITS | Encounter Summary ---
:1965 Author Organization [facility] Address [address] [place] [address] Care Team Providers Name Role Phone Jonathan Smith MD Primary Care Provider Encounter Details Date Type Department Care Team Description 01/11/2021 Lab Requisition [facility] Chalo Nye for other Pathology & MD Valentino general examination Laboratory Medicine [address] [place], [place] [address] [facility] [address] [place], [place] [address] Social History Tobacco Use Types Packs/Day Years [...] Name Priority Date/Time Associated Diagnosis Comme nts SURGICAL PATHOLOGY Today 01/11/2021 9:59 EDT Encounter for o ther Results for this general examination procedur e are in the results section. documented in this encounter Results SURGICAL PATHOLOGY (01/11/2021 9:59 EDT) Component Value Ref Test Analysis Performed At [facility] Range Method Time Signature Final A. SIGMOID COLON, BIOPSY: 01/14/2021 [facility] Diagnosis - Sessile serrated adenoma 17:01 EDT [facility] Diagnosis Kaitara Taraka slides of boris s case were reviewed at the gastrointestinal/liver intradepartmental consultation conference. 01/14/2021 [facility] MEDICAL Comment 17:01 EDT [facility]ENTER LABORATORY SERVICES Attestation By the signature 01/14/2021 [facility] MEDICA L Electronically below, the 17:01 EDT CENTER signed by attending physician Elodia Jiang, certifies that they SERVICES MD on 01/14/2021 have 1) personally a t 1701 conducted a gross and/or microscopic examination of the described specimen(s), and/or personally interpreted the results of laboratory testing of the described specimen(s), and 2) personally rendered or confirmed the above diagnosis. Clinical Hx polyps, polyp, 01/14/2021 [facility] History internal hemorrhoid 17:01 [facility] Gross A. 01/14/2021 [facility] MED[facility] Description Received in formalin alo d with proper patient identification (initials G, M) and sigmoid polyp is a single fragment of mak tissue (0.4 x 0.2 x 0.1 cm). The specimen is submitted in A1. 17:01 [facility] HAYLEY HURTADO(ASCP) 01/11/2021 16:49 SERVICES Performing [facility] 01/14/2021 [facility] 17:01 [facility] SERVICES Scanned 01/14/2021 [facility] Images 17:01 [facility] SERVICES Specimen Anatomical Collection Method Collection Time Receive d Time (Source) Location / / Volume Laterality Tissue ENTIRE SIGMOID 01/11/2021 9:59 01/11/2021 COLON / Unknown EDT 16:41 EDT Valentino Nye MD PATHOLOGY ORDERABLES Performing Organization Address City/State/ZIP Code Phon e Number [facility] [address] [place] [address] SERVICES documented in this encounter Visit Diagnoses Diagnosis Encounter for other general examination documented in this encounter Care Teams Manager Printing Relationship Specialty Start Date End Date Jonathan Smith MD PCP - General 10/16/20 [address] [place] [address] documented as of this encounter
== END ==
PROVIDERS: PCP Family Medicine; Visit Provider Family Medicine
DX: M47.816 Spondylosis without myelopathy or radiculopathy, lumbar region (principal); M48.061 Spinal stenosis, lumbar region without neurogenic claudication; M48.07 Spinal stenosis, lumbosacral region
CPT/HCPCS: 72148

== ENCOUNTER 2022-10-19 03:16 | Outpatient (CLI) | payer MEDICARE, MEDICAID, SELFPAY ==
--- NOTE | 2022-10-19 12:55 | DI.MAMMO_ITS ---
Exam(s) MAMMO SCREENING EXAM: MAMMO SCREENING CLINICAL HISTORY: ANNUAL PHYSICAL Z00.00, SCREENING FOR BREAST CANCER TECHNIQUE: Mammograms were interpreted according to the usual protocol including computer analysis w GelSight CAD system, tomosynthesis and C-view imaging. COMPARISON: 2012 through 2018 FINDINGS: The breasts are composed of scattered fibroglandular densities, Breast Density category B. No suspicious masses or suspicious microcalcifications are seen. No skin thickening or abnormal axillary lymph nodes are seen. There has been no significant change from prior exams. IMPRESSION: BI-RADS Category 1, Negative mammogram Yearly screening mammography is recommended. Breast Density - Category B, scattered fibroglandular densities. A negative radiographic report should not delay biopsy if a dominant or clinically suspicious mass is present. Up to ten percent of cancers are not identified on mammography. A negative report may reinforce clinical impression. Adenosis and dense breasts may obscure an underlying neoplasm. False positive reports average 6 to 10%. Patient will receive a letter notifying them of these results.
== END 2022-10-19 03:36 ==
LOC: DI 03:17
PROVIDERS: PCP Family Medicine; Visit Provider Family Medicine
DX: Z12.31 Encounter for screening mammogram for malignant neoplasm of breast (principal)
CPT/HCPCS: 77063; 77067

== ENCOUNTER 2022-12-13 17:35 | Outpatient (CLI) | payer MEDICARE, MEDICAID, SELFPAY ==
--- NOTE | 2022-12-13 | DI.RAD_ITS ---
Exam(s) XR HAND LT COMPLETE EXAM: XR HAND LT COMPLETE CLINICAL HISTORY: LT HAND PAIN, M79.642. TECHNIQUE: 2D digital imaging was performed. COMPARISON: No exams were available for comparison FINDINGS: 3 views No evidence of acute fracture nor subluxations. No osseous lesions. No erosions. No radiopaque for eign body. Moderate degenerative changes noted at the 1st carpometacarpal joint. IMPRESSION: As above. No fractures. See separate wrist dictation. DATA REPOSITORY: RADIATION DOSE DELIVERED:
--- NOTE | 2022-12-13 | DI.RAD_ITS ---
Exam(s) XR WRIST LT COMPLETE EXAM: XR WRIST LT COMPLETE CLINICAL HISTORY: LT WRIST PAIN, M25.532. TECHNIQUE: 2D digital imaging was performed. COMPARISON: No exams were available for comparison FINDINGS: 3 views There is no evidence of acute fracture nor dislocation.. Scaphoid and scapholunate distance appear n ormal. On the lateral view there is a benign-appearing bony excrescence coming off of the dorsal aspect of 1 of the proximal carpal row bones, possibly the triquetrum. This does not have the appearance of a f racture fragment. Moderate degenerative changes in the 1st carpometacarpal joint noted. IMPRESSION: No fractures but other findings as above. DATA REPOSITORY: RADIATION DOSE DELIVERED:
== END 2022-12-13 17:55 ==
LOC: DI 17:36
PROVIDERS: PCP Family Medicine; Visit Provider Specialist/Technologist Athletic Trainer
DX: M19.042 Primary osteoarthritis, left hand; M19.032 Primary osteoarthritis, left wrist
CPT/HCPCS: 73110; 73130

== ENCOUNTER 2023-01-09 13:26 | Outpatient (REF) | payer MEDICARE, MEDICAID, SELFPAY ==
[2023-01-09 15:38] LABS: Hemoglobin A1C 7.5 % (<5.7)
[2023-01-09 16:19] LABS: Albumin 3.6 g/dL (3.4-5.0); Anion Gap 3.8 mmol/L (3-11); BUN 17 mg/dL (7-18); CO2 30.2 mmol/L (21.0-32.0); CREATININE 0.7 mg/dL (0.55-1.02); Calcium 9.7 mg/dL (8.5-10.1); Chloride 105 mmol/L (98-107); Estimated GFR 100.19 (mL/min/1.73m2); Glucose 229 mg/dL (74-106); Potassium 4.3 mmol/L (3.5-5.1); Sodium 139 mmol/L (136-145); TSH (W/Ref FT4) 0.26 uIU/mL (0.36-3.74); Vitamin B12 1695 pg/mL (193-986)
[2023-01-09 17:55] LABS: FREE T4 1.01 ng/dL (0.76-1.46)
== END 2023-01-09 13:27 | disposition home or self-care (01) ==
LOC: NCHCN 13:26
PROVIDERS: PCP Family Medicine; Visit Provider Family Medicine
DX: E11.40 Type 2 diabetes mellitus with diabetic neuropathy, unspecified (principal); E21.0 Primary hyperparathyroidism; Z79.899 Other long term (current) drug therapy
CPT/HCPCS: 80048; 82040; 82607; 83036; 84439; 84443

== ENCOUNTER 2023-01-20 11:49 | Outpatient (REF) | payer MEDICARE, MEDICAID, SELFPAY ==
[2023-01-20 15:41] LABS: Bacteria Few HPF (Negative); C & S Indicated? C&S Done As Ordered; Casts Negative LPF (Negative); Crystals Negative HPF (Negative); Epithelial Cells Few HPF (Negative); Mucus Negative (Negative); RBC 0-2 HPF (0-2)
== END 2023-01-20 11:50 | disposition home or self-care (01) ==
LOC: LBN 11:49
PROVIDERS: PCP Family Medicine; Visit Provider Physician Assistant Medical
DX: N28.89 Other specified disorders of kidney and ureter (principal)
CPT/HCPCS: 81015; 87086

== ENCOUNTER 2023-01-20 11:51 | Outpatient (CLI) | payer MEDICARE, MEDICAID, SELFPAY ==
--- NOTE | 2023-01-20 11:48 | DI.CT_ITS ---
Exam(s) CT RENAL COLIC WO EXAM: CT RENAL COLIC WO CLINICAL HISTORY: LT-SIDED RENAL PAIN, N28.9; H/O KIDNEY STONES. TECHNIQUE: Imaging Protocol: Axial computed tomography images with coronal and sagittal reformatted images were created and reviewed. COMPARISON: CT CT ABDOMEN PELVIS W from 09/02/2021 FINDINGS: ABDOMEN: Lung Bases: Normal where visualized. Liver: Normal density. No measurable mass. Gallbladder and biliary tract: Status post cholecystectomy. No significant biliary ductal dilatation . Pancreas: Normal density, no abnormal calcifications or inflammatory process. Spleen: Normal. Kidneys: There is again seen atrophy of the inferior pole of the right kidney.There is a 3 mm nonobst ructing stone in the midpole of the left kidney. No ureteral stones or hydronephrosis. No masses se en. Adrenal glands: No mass is seen. Lymph nodes: Within normal limits. Abdominal Aorta: Abdominal portion non-dilated. Atherosclerosis. PELVIS: Bladder:Symmetric distention, no gross wall thickening. Bowel: No obstruction or bowel wall thickening. Appendix is unremarkable. Moderate amount of stool i n the colon which may represent constipation. Peritoneal cavity: No ascites, collection or mesenteric inflammatory response. No free air. Reproductive organs: Unremarkable as visualized. Bones: Within normal limits. Soft Tissues: Within normal limits. IMPRESSION: 1. Left nephrolithiasis. No evidence of ureteral stone or hydronephrosis. 2. No evidence of diverticulitis or bowel infectious/inflammatory process. 3. Moderate amount of stool in the colon which may represent constipation. RADIATION DOSE DELIVERED: 1,334.9mGy.cm Total DLP DATA REPOSITORY: All CT scans at this facility are submitted to the National Radiology Data Registry (NRDR) Dose Index Registry (DIR) with the [employer] (ACR). RADIATION OPTIMIZATION: All CT scans at this facility use at least one of these dose optimization te chniques: automated exposure control; mA and/or kV adjustment per patient size (includes targeted exa ms where dose is matched to clinical indication); or iterative reconstruction.
[2023-01-20 12:08] LABS: Abs Immature Grans 0.03 10^3/uL (0.0-0.06); Absolute Basophil Count 0.04 10^3/uL (0.0-0.2); Absolute Eosinophil Count 0.15 10^3/uL (0.0-0.7); Absolute Lymphocyte Count 2.08 10^3/uL (1.2-3.4); Absolute Monocyte Count 0.44 10^3/uL (0.1-0.8); Absolute Neutrophil Count 5.49 10^3/uL (1.2-6.7); Basophils % 0.5; Eosinophils % 1.8; HGB 15.6 g/dL (11.2-15.7); Immature Grans % 0.4; Lymphocytes % 25.3; MCH 28.6 pg (27.0-33.0); MCHC 33.2 % (32.0-36.0); MCV 86 fL (80-95); MPV 10.6 fL (8.0-11.0); Monocytes % 5.3; Neutrophils % 66.7; Platelet Count 221 10^3/uL (130-400); RBC 5.46 10^6/uL (3.93-5.22); RDW 12.5 % (11.7-14.6); RDW-SD 39.1 fL; WBC 8.23 10^3/uL (4.4-10.8)
[2023-01-20 12:48] LABS: Anion Gap 6.7 mmol/L (3-11); BUN 15 mg/dL (7-18); CO2 31.3 mmol/L (21.0-32.0); CREATININE 0.8 mg/dL (0.55-1.02); Calcium 10.8 mg/dL (8.5-10.1); Chloride 105 mmol/L (98-107); Estimated GFR 85.35 (mL/min/1.73m2); Glucose 155 mg/dL (74-106); Potassium 4.4 mmol/L (3.5-5.1); Sodium 143 mmol/L (136-145)
== END 2023-01-20 12:11 ==
LOC: DI 11:53
PROVIDERS: PCP Family Medicine; Visit Provider Physician Assistant Medical
DX: N28.9 Disorder of kidney and ureter, unspecified (principal); N20.2 Calculus of kidney with calculus of ureter
CPT/HCPCS: 36415; 80048; 74176; 85025

== ENCOUNTER 2023-02-06 15:22 | Outpatient (REF) | payer MEDICARE, MEDICAID, SELFPAY ==
[2023-02-06 20:03] LABS: C-Reactive Protein 0.15 mg/dL (0.0-0.3)
== END 2023-02-06 15:23 | disposition home or self-care (01) ==
LOC: NCHCN 15:22
PROVIDERS: PCP Family Medicine; Visit Provider Family Medicine
DX: R68.84 Jaw pain (principal)
CPT/HCPCS: 85025; 86140

== ENCOUNTER 2023-02-23 01:16 | Outpatient (CLI) | payer MEDICARE, MEDICAID, SELFPAY ==
--- NOTE | 2023-02-23 15:00 | DI.DEXA_ITS ---
Exam(s) XR DEXA BONE DENSITY W/WO SALVADOR EXAM: XR DEXA BONE DENSITY W/WO SALVADOR CLINICAL HISTORY: PRIMARY HYPERPARATHYROIDISM, E21.0; VITAMIN D DEFICIENCY, E55.9 TECHNIQUE: Routine DEXA evaluation of the lumbar spine, hip, or forearm. COMPARISON: No exams were available for comparison FINDINGS: Performed on a Hologic unit. Lateral image: No compression fracture evident. Lumbar Spine total T-score: 0.3 Hip total T-score:-0.9 Independent reading at the level of the femoral neck yields T-score of -2.0 Forearm total T-score: -2.3 IMPRESSION: Bone mineral density measures in the osteopenia range. Fracture risk is moderate. Note: Any spine fracture indicates 5x risk for subsequent spine fracture and 2x risk for subsequent h ip fracture. World Health Organization criteria for BMD interpretation classify patients: Normal...... T- Score at or above -1.0 Osteopenic... T- Score between -1.0 and -2.5 Osteoporosis... T-Score at or below -2.5
== END 2023-02-23 01:36 ==
LOC: DI 01:16
PROVIDERS: PCP Family Medicine; Visit Provider Family Medicine
DX: E21.0 Primary hyperparathyroidism (principal); E55.9 Vitamin D deficiency, unspecified; M81.0 Age-related osteoporosis without current pathological fracture
CPT/HCPCS: 77080

== ENCOUNTER 2023-06-23 11:16 | Outpatient (REF) | payer MEDICARE, MEDICAID, SELFPAY ==
[2023-06-23 16:48] LABS: Vitamin D 25 Total 16.9 ng/mL (30-100)
[2023-06-23 16:52] LABS: Calcium 9.5 mg/dL (8.5-10.1); PHOSPHORUS 3.2 mg/dL (2.6-4.7); TSH (W/Ref FT4) 4.67 uIU/mL (0.36-3.74)
[2023-06-23 17:47] LABS: FREE T4 0.99 ng/dL (0.76-1.46)
[2023-06-23 23:00] LABS: Parathyroid Hormone,Intact 127 pg/mL (19-88)
== END 2023-06-23 11:17 | disposition home or self-care (01) ==
LOC: NCHCN 11:16
PROVIDERS: PCP Family Medicine; Visit Provider Family Medicine
DX: E11.9 Type 2 diabetes mellitus without complications; E21.0 Primary hyperparathyroidism
CPT/HCPCS: 82306; 82310; 83036; 83970; 84100; 84439; 84443

== ENCOUNTER → 2023-08-31 02:46 | Outpatient (CLI) | payer MEDICARE, MEDICAID, SELFPAY ==
--- NOTE | 2023-08-31 10:14 | DI.MAMMO_ITS ---
Exam(s) US AXILLA RT MG MAMMO DIAGNOSTIC BI EXAM: MG MAMMO DIAGNOSTIC BI CLINICAL HISTORY: UNSPECIFIED LUMP AXILLARY TAIL RT BREAST. COMPARISON: US US AXILLA RT from 08/31/2023 TECHNIQUE: Craniocaudal and mediolateral oblique Full Field Digital Mammography views of the both br easts with Computer Aided Diagnosis followed by Tomosynthesis and bilateral breast ultrasound. Image s focused on area of palpable abnormalities in the axilla. FINDINGS: Mammography/Tomosynthesis: Masses/Architectural Distortion: Markers were placed over the area of palpable abnormality in the axi llary regions. There are normal appearing lymph nodes which are nearly entirely fatty replaced which correspond to the palpable abnormalities. They appear unchanged from prior mammograms. No suspicio us masses seen. Microcalcifications: No suspicious pleomorphic-type are seen. Skin Thickening/Nipple Retraction: None. Bilateral breast US: Echotexture: Normal appearance of the glandular tissue. Shadowing: No suspicious foci. Cyst: None. Solid lesions: No suspicious masses seen. In the right axilla there is a an ovoid fatty echogenicity lesion measuring 2.8 x 1.5 by 2.9 cm. This is consistent with the nearly fatty replaced lymph node seen on mammogram. There is an adjacent lymph node measuring 2 cm in greatest dimension. This is al so seen on the mammogram. In the left axilla there is a are 3.3 centimeter maximal dimension fatty l esion which corresponds to nearly fatty replaced lymph node seen on mammogram. IMPRESSION: 1. No evidence of malignancy is noted. 2. Unless there is more urgent need, follow-up screening mammography is recommended, as per [employer] guidelines. BI-RADS Category 1 - Negative Breast Density - Category B - Scattered areas of fibroglandular density A negative radiographic report should not delay biopsy if a dominant or clinically suspicious mass is present. Up to ten percent of cancers are not identified on mammography. A negative report may reinforce clinical impression. Adenosis and dense breasts may obscure an underlying neoplasm. False positive reports average 6 to 10%. Patient will receive a letter notifying them of these results.
== END ==
PROVIDERS: PCP Family Medicine; Visit Provider Family Medicine
DX: N63.31 Unspecified lump in axillary tail of the right breast (principal)
CPT/HCPCS: 76642; 77062; 77066; G0279

== ENCOUNTER 2023-11-14 16:27 | Outpatient (REF) | payer MEDICARE, MEDICAID, SELFPAY ==
[2023-11-14 16:07] LABS: Hemoglobin A1C 8.4 % (<5.7)
[2023-11-14 16:44] LABS: Albumin 3.8 g/dL (3.4-5.0); Anion Gap 6.1 mmol/L (3-11); BUN 16 mg/dL (7-18); CO2 31.9 mmol/L (21.0-32.0); CREATININE 0.6 mg/dL (0.55-1.02); Calcium 9.7 mg/dL (8.5-10.1); Chloride 106 mmol/L (98-107); Estimated GFR 103.33 (mL/min/1.73m2); Glucose 271 mg/dL (74-106); Potassium 4.3 mmol/L (3.5-5.1); Sodium 144 mmol/L (136-145); TSH (W/Ref FT4) 3.38 uIU/mL (0.36-3.74)
== END 2023-11-14 16:28 | disposition home or self-care (01) ==
LOC: NCHCN 16:27
PROVIDERS: PCP Family Medicine; Visit Provider Family Medicine
DX: E11.69 Type 2 diabetes mellitus with other specified complication (principal); E03.9 Hypothyroidism, unspecified
CPT/HCPCS: 80048; 82040; 83036; 84443

== ENCOUNTER → 2023-11-21 01:36 | Outpatient (CLI) | payer MEDICARE, MEDICAID, SELFPAY ==
--- NOTE | 2023-11-21 | DI.RAD_ITS ---
Exam(s) XR LUMBAR SPINE COMPLETE EXAM: XR LUMBAR SPINE COMPLETE CLINICAL HISTORY: LOW BACK PAIN, M54.50. TECHNIQUE: 2D digital imaging was performed. Five views. COMPARISON: CT CT RENAL COLIC WO from 01/20/2023 CR XR DEXA BONE DENSITY W/WO SALVADOR from 02/23/2023 FINDINGS: Exam is limited by body habitus and upright technique. BONES: No gross evidence fracture or destructive lesion. Vertebral body heights are maintained. fac et hypertrophy present at L3-4 through L5-S1. Findings are greatest at L5-S1. There is slight spond ylolisthesis at L4-5 and L5-S1 secondary to facet hypertrophy. No spondylolysis. DISKS: Intervertebral disc spaces are maintained. ALIGNMENT: No scoliosis. SOFT TISSUE: Normal. IMPRESSION: Degenerative changes greatest of the facet joints at L5-S1. DATA REPOSITORY: RADIATION DOSE DELIVERED:
--- NOTE | 2023-11-21 | DI.US_ITS ---
Exam(s) US RENAL EXAM: US RENAL CLINICAL HISTORY: CALCULUS OF KIDNEY, N20.0. TECHNIQUE: Tracy scale, color and spectral Doppler were used. COMPARISON: CT CT RENAL COLIC WO from 01/20/2023 FINDINGS: Renal size in cm: Right: 12.0 scarring lower pole Left: 13.4 Echogenicity: Normal Hydronephrosis: No Cyst or mass: 7 millimeter cyst mid right kidney. Nephrolithiasis: 4 millimeter stone mid left kidney. Bladder:Normal. Prevoid vol:82 cc Postvoid vol:8 cc IMPRESSION: 4 millimeter nonobstructing stone mid left kidney. Scarring lower pole right kidney. DATA REPOSITORY:
== END ==
PROVIDERS: PCP Family Medicine; Visit Provider Family Medicine
DX: N20.0 Calculus of kidney (principal); M51.36 Other intervertebral disc degeneration, lumbar region
CPT/HCPCS: 76770; 72110

== ENCOUNTER → 2024-02-06 13:08 | Outpatient (BNVA) | payer MEDICARE, MEDICAID, SELFPAY | PROVIDERS: PCP Family Medicine; Referring Provider Family Medicine; Visit Provider Nurse Practitioner Gerontology | DX: N20.0 Calculus of kidney (principal); E11.9 Type 2 diabetes mellitus without complications | CPT/HCPCS: 81003; 99215 ==

== ENCOUNTER → 2024-02-08 11:22 | Outpatient (BNVA) | payer MEDICARE, MEDICAID, SELFPAY | PROVIDERS: PCP Family Medicine; Referring Provider Family Medicine; Visit Provider Physical Therapy Assistant | DX: Z12.11 Encounter for screening for malignant neoplasm of colon (principal); Z86.010 Personal history of colon polyps ==

== ENCOUNTER 2024-02-12 18:03 | Outpatient (REF) | payer MEDICARE, MEDICAID, SELFPAY ==
[2024-02-12 20:17] LABS: ESR 2 mm/hr (0-30)
[2024-02-12 20:42] LABS: ALT 37 U/L (14-59); AST 18 U/L (15-37); Alkaline Phosphatase 122 U/L (46-116); Anion Gap 7.4 mmol/L (3-11); BUN 17 mg/dL (7-18); Bilirubin, Total 0.8 mg/dL (0.2-1.0); CO2 28.6 mmol/L (21.0-32.0); CREATININE 0.7 mg/dL (0.55-1.02); Calcium 10.1 mg/dL (8.5-10.1); Chloride 104 mmol/L (98-107); Estimated GFR 98.95 (mL/min/1.73m2); Glucose 249 mg/dL (74-106); Potassium 3.7 mmol/L (3.5-5.1); Sodium 140 mmol/L (136-145); TSH (W/Ref FT4) 5.24 uIU/mL (0.36-3.74); Total Protein 6.7 g/dL (6.4-8.2)
[2024-02-12 20:43] LABS: Hemoglobin A1C 9.8 % (<5.7)
[2024-02-12 20:53] LABS: COMMENT (LAB VIEW ONLY) 44.28 mg/dL; Microalb ug/mg Crea 21.9 ug/mg Cr
[2024-02-12 21:13] LABS: C-Reactive Protein < 0.50 mg/dL (<or=0.5); FREE T4 1.03 ng/dL (0.76-1.46)
[2024-02-14 08:38] LABS: Cyclic Citrullinated Peptide <2.5 U/mL (<5.0)
[2024-02-14 09:06] LABS: Lyme Ab w Rflx to Lyme Confirm Negative (Negative)
[2024-02-14 14:12] LABS: ANA Interpretation Negative (Negative)
== END 2024-02-12 18:04 | disposition home or self-care (01) ==
LOC: NCHCN 18:03
PROVIDERS: PCP Family Medicine; Visit Provider Family Medicine
DX: E11.69 Type 2 diabetes mellitus with other specified complication (principal)
CPT/HCPCS: 80053; 85652; 86200; 82043; 82570; 83036; 84439; 84443; 86038; 86140; 86618

== ENCOUNTER 2024-02-29 06:08 | Day surgery (SDC) | payer MEDICARE, MEDICAID, SELFPAY ==
[2024-02-29] VITALS (8 sets, daily range): BP systolic 134–150; BP diastolic 59–88; PULSE 74–79; RESP 16–21; TEMP 36.3–36.4; O2SAT 92–96; BMI 44.7
[2024-02-29] MEDS: Lactated Ringers 1,000 ML 80 ML IV (06:46)
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
--- NOTE | 2024-02-29 07:06 | ANES.PREOP_ITS ---
General Info Date of Service Date Performed: 02/29/24 Height: 5 ft 4 in Weight: 118.3 kg Body Mass Index (BMI): 44.7 Surgical Procedure: Operation Date: 02/29/24 07:40 Proposed Procedure Side Surgeon p Cystoscopy/Retrograde/Ureteroscopy/Stone Manipulation Left Brett Hernandez MD Meds Allergies and Home Medications Allergies Allergy/AdvReac Type Severity Reaction Status Date / Time latex Allergy Severe Skin Rash Unverified 02/29/24 06:21 Sulfa (Sulfonamide Allergy Severe vomiting/ra Unverified 02/29/24 06:21 Antibiotics) sh/migraine amlodipine AdvReac Severe suicadal Unverified 02/29/24 06:21 thoughts fluoxetine HCl [From Prozac] AdvReac Severe anxiety/peggy Unverified 02/29/24 06:21 cidal pregabalin [From Lyrica] AdvReac Severe flatulence/ Unverified 02/29/24 06:21 suicidal sumatriptan [From Imitrex] AdvReac Severe suicidal Unverified 02/29/24 06:21 tramadol AdvReac Severe anxiety,suicidal Unverified 02/29/24 06:21 thoughts Home Medication Medication Instructions Recorded mecobalamin (vitamin B12) 1,000 1,000 mcg PO DAILY 11/06/20 mcg chewable tablet acetaminophen 500 mg tablet 1,000 mg (2 x 500 mg) PO Q8H PRN 08/11/21 pain #90 tabs docusate sodium 100 mg capsule 100 mg PO 1XD 08/12/22 dulaglutide 1.5 mg/0.5 mL 1.5 mg subcut 1XD 08/12/22 subcutaneous pen [facility]or ([facility]) lidocaine 4 % topical patch patch topical 08/12/22 (Lidocaine Pain Relief) duloxetine 30 mg capsule,delayed 60 mg PO DAILY 10/10/23 release loratadine 10 mg tablet 10 mg PO DAILY 10/10/23 albuterol sulfate 90 mcg/actuation 2 puff inhalation Q6H PRN 01/18/24 aerosol inhaler (Ventolin HFA) bisacodyl 5 mg tablet,delayed 5 mg PO BID PRN 01/18/24 release cyclobenzaprine 5 mg tablet 5 mg PO BID PRN 01/18/24 diclofenac sodium 1 % topical gel 2 g topical QID 01/18/24 fluorouracil 5 % topical cream 1 applic topical BID 01/18/24 (Efudex) gabapentin 100 mg capsule 200 mg PO QAM 01/18/24 gabapentin 300 mg capsule 300 mg PO QHS 01/18/24 ibuprofen 600 mg tablet 600 mg PO TID PRN 01/18/24 insulin aspart 10 unit subcut .5 times a day 01/18/24 (niacinamide)(U-100) 100 unit/mL(3 mL) subcutaneous pen (Fiasp FlexTouch U-100 Insulin) insulin glargine 100 unit/mL (3 45 unit subcut BID 01/18/24 mL) subcutaneous pen (Basaglar KwikPen U-100 Insulin) levothyroxine 137 mcg tablet 137 mcg PO DAILY 01/18/24 (Synthroid) magnesium citrate 100 mg tablet 100 mg PO BID PRN 01/18/24 metformin 500 mg tablet,extended 250 mg PO DAILY 01/18/24 release 24 hr olmesartan 20 mg tablet 20 mg PO DAILY 01/18/24 rosuvastatin 20 mg tablet 20 mg PO DAILY 01/18/24 sodium phosphates 19 gram-7 118 ml WI BID 01/18/24 gram/118 mL enema (Enema Disposable) bisacodyl 5 mg tablet,delayed 5 mg PO ONCE Colonoscopy Bowel 02/08/24 release (Dulcolax (bisacodyl)) Prep #4 tabs polyethylene glycol 3350 17 238 g PO ONCE Colonoscopy Bowel 02/08/24 gram/dose oral powder Prep #238 grams Current Visit Medications: Current Medications Generic Name Dose Route Start Last Admin Trade Name Freq PRN Reason Stop Dose Admin Ringer's Solution 1,000 mls @ 80 mls/hr 02/29/24 06:00 02/29/24 06:46 IV 02/29/24 23:59 80 mls/hr INFUSION JUAN Administration Cefazolin Sodium/Dextrose 2 gm in 50 mls @ 100 mls/hr 02/29/24 06:00 Ancef Duplex IVPB 02/29/24 23:59 PREOP JUAN IV Miscellaneous Supplies 1 each 02/29/24 06:00 Iv Access IV 02/29/24 23:59 DIRECTED JUAN Sodium Chloride 0 ml 02/29/24 06:00 Normal Saline Flush 10 Ml Syr IV 02/29/24 23:59 PRN PRN Sodium Chloride 0 ml 02/29/24 06:00 Normal Saline 10 Ml Vial IJ 02/29/24 23:59 DIRECTED PRN Sterile Water 0 ml 02/29/24 06:00 Water,Injection,Sterile 10 Ml Vial IJ 02/29/24 23:59 DIRECTED PRN PFSH Active Problems Active Problems: Problem Status Onset Code Kidney stones N20.0 Coronary atherosclerosis I25.10 Neuropathy G62.9 Primary hyperparathyroidism E21.0 Peripheral venous insufficiency I87.2 Spinal stenosis M48.00 Migraine Gram-negative bacteremia R78.81 Nausea & vomiting R11.2 Transaminitis R74.01 Discharge planning issues Z02.9 DVT prophylaxis Z29.9 CAP (community acquired pneumonia) J18.9 Hypertension Hypothyroidism Sleep apnea Diabetes type 2, controlled History of total right knee replacement 08/11/21 Z96.651 History of total left knee replacement Z96.652 Internal derangement of left knee 05/26/16 M23.92 Mucous cyst of finger 12/28/15 M67.449 Surgical menopause 08/23/13 E89.40 Neoplasm of unspecified behavior of bone, soft tissue, and skin D49.2 Osteoarthritis of both knees M17.0 Seborrheic keratosis L82.1 Serrated adenoma of colon D12.6 Actinic keratosis L57.0 Fibromyalgia M79.7 BMI 45.0-49.9, adult Z68.42 Venous insufficiency I87.2 Insomnia G47.00 Vitamin D deficiency E55.9 Post-traumatic osteoarthritis of right knee M17.31 Medical History Medical History Major depression Type 2 diabetes mellitus Hx of traumatic brain injury Asthma Hiatal hernia Risk for falls Hx of ovarian cyst GERD (gastroesophageal reflux disease) pt. denies Ganglion cyst of wrist Peripheral neuropathy Hyperlipidemia Diarrhea Depression Back pain Urinary incontinence Morbid obesity with BMI of 50.0-59.9, adult Surgical History Surgical History Hx of cholecystectomy Hx of knee surgery R knee fracture, remove hardware Hx of bilateral oophorectomy History of colonoscopy 02/07/2006 History of gastric bypass ganglion cyst excision Tobacco Smoking/Tobacco Use Status: Never Alcohol Alcohol Intake: current Alcohol intake frequency: holidays/special occasions only Substance Use Substance use: Occasionally Substance use type: marijuana Details: Gummies Vital Signs and Lab Results Vital Signs Most Recent Vital Signs in EMR: Most Recent Vital Signs Temp Pulse Resp BP Pulse Ox 36.4 C L 74 16 147/88 H 96 02/29/24 06:39 02/29/24 06:39 02/29/24 06:39 02/29/24 06:39 02/29/24 06:39 Point of Care Results Point of Care Results: Finger Stick Blood Glucose 191 02/29/24 06:49 Lab Results Blood Type / Crossmatch: 2 No Data to Display Complete Blood Count: 2 No Data to Display Complete Metabolic Panel: 2 Sodium 140 mmol/L (136-145) 02/12/24 16:47 Potassium 3.7 mmol/L (3.5-5.1) 02/12/24 16:47 Chloride 104 mmol/L (98-107) 02/12/24 16:47 Carbon Dioxide 28.6 mmol/L (21.0-32.0) 02/12/24 16:47 BUN 17 mg/dL (7-18) 02/12/24 16:47 Creatinine 0.7 mg/dL (0.55-1.02) 02/12/24 16:47 Est GFR (CKD-EPI 2020) 98.95 (mL/min/1.73m2) 02/12/24 16:47 Calcium 10.1 mg/dL (8.5-10.1) 02/12/24 16:47 Albumin 4.0 g/dL (3.4-5.0) 02/12/24 16:47 Glucose 249 mg/dL (74-106) H 02/12/24 16:47 Hemoglobin A1c 9.8 % (<5.7) H 02/12/24 16:47 C-Reactive Protein < 0.50 mg/dL (<or=0.5) 02/12/24 16:47 Liver Function Panel: 2 Alanine Aminotransferase (ALT/SGPT) 37 U/L (14-59) 02/12/24 16: 47 Aspartate Amino Transf (AST/SGOT) 18 U/L (15-37) 02/12/24 16:47 Coagulation Panel: 2 No Data to Display Cardiac Panel: 2 No Data to Display Arterial Blood Gas: 2 No Data to Display Venous Blood Gas: 2 No Data to Display Pancreas Panel: 2 No Data to Display Thyroid Panel: 2 Thyroid Stimulating Hormone (TSH) 5.24 uIU/mL (0.36-3.74) H 02/12/24 16:47 Infectious Disease: 2 No Data to Display Blood Cultures: 2 No Data to Display Toxicology Panel: 2 No Data to Display Imaging and Studies Imaging and Studies Study information below may be from another EMR and interpreted by another provider. Please see original notes in EMR for more complete details. EKG Summary: PATIENT NAME: Kelin Galeana UNIT #: [id number] ORDERING PROVIDER: Ana Benson PRIMARY CARE PROVIDER: JUDITH MERAZ MD DATE/TIME OF SERVICE: 09/02/21 1046 : 1965 PERFORMING LOCATION: ER APPROVED REPORT Exam: Resting ECG Reason for Exam: weakness Patient Location: E HR:84 bpm ECG Measurements Heart Rate 84 AXIS WI 168 P 77 QRSd 86 QRS 29 QT 381 T9 QTc 452 Conclusion Sinus rhythm...normal P axis, V-rate 60- 99 Ventricular premature complex...V complex w/ short R-R interval - <Electronically signed by MICHAEL BEJARANO MD in [facility]> E-Sign Date: 09/02/21 E-Sign Time: 1108 ADDENDUM APPROVED REPORT Exam: Resting ECG Reason for Exam: weakness Patient Location: E HR:84 bpm ECG Measurements Heart Rate 84 AXIS WI 168 P 77 QRSd 86 QRS 29 QT 381 T9 QTc 452 Conclusion Sinus rhythm...normal P axis, V-rate 60- 99 Ventricular premature complex...V complex w/ short R-R interval I have reviewed and I agree with the emergency room physician's ECG interpretation. Electronically signed by: <Electronically signed by Ruth Sesay M.D. in [facility]> 09/02/21 1124 Cosigned by: Anesthesia Assessment and Plan Anesthesia History Personal History: No History of Anesthesia Complications Family History: No Family History of Anesthesia Complications Exercise Tolerance Exercise Tolerance: Metabolic Equivalents>4 Pertinent Negatives Pertinent Negatives: No Symptoms of GERD and No History of CVA/TIA Cardiac & Pulmonary Exam Cardiac Exam: Normal S1/S2 Heart Sounds Pulmonary Exam: Clear Bilateral Breath Sounds Implantable Cardiac Device Does patient have a Pacemaker or an ICD?: No Airway Exam Known Difficult Airway: No Mallampati Class: 3 Mouth Opening: Normal (> 3cm) Thyromental Distance: Less than 3 cm Neck Range of Motion: Full ROM Neck Circumference: Normal Teeth Condition: Normal Dentition Tooth Numberin 1. broken tooth 2. broken tooth ASA Classification ASA Score: ASA 3 Emergency Case?: No NPO Status NPO Status: NPO Clears >2 hours, Solids >8 hours Anesthesia Plan Resuscitation Status: Full Code Anesthesia Technique: General Anesthesia Airway Planned: Endotracheal Tube Monitors Used: Standard Monitors
[2024-02-29] MEDS: ceFAZolin 2 GM/50 ML BAG IVPB (07:45)
[2024-02-29] MEDS: Lidocaine 2% Jelly 11 ML SYR (08:05)
[2024-02-29] MEDS: Omnipaque 300 MG/ML 50 ML BTL (08:05)
--- NOTE | 2024-02-29 08:45 | W.PM.DSUDISC ---
Date of service: 02/29/24 Time of Service: 08:45 Discharge Plan Disposition Patient Disposition: Home Discharge Details Reason For Visit: ureteroscopy Attending Provider: Brett Hernandez Primary Care Provider: Phoebe Denise Home Meds and New Rx's Prescriptions: No Action bisacodyl [Dulcolax (bisacodyl)] 5 mg tablet,delayed release (DR/EC) 5 mg PO ONCE Qty: 4 0RF Rx Instructions: Colonoscopy Bowel Prep- Per Instructions polyethylene glycol 3350 17 gram/dose powder 238 g PO ONCE Qty: 238 0RF Rx Instructions: Colonoscopy Bowel Prep- Per Instructions mecobalamin (vitamin B12) 1,000 mcg tablet,chewable 1,000 mcg PO DAILY duloxetine 30 mg capsule,delayed release(DR/EC) 60 mg PO DAILY loratadine 10 mg tablet 10 mg PO DAILY insulin glargine [Basaglar KwikPen U-100 Insulin] 100 unit/mL (3 mL) insulin pen 45 unit subcut BID bisacodyl 5 mg tablet,delayed release (DR/EC) 5 mg PO BID PRN cyclobenzaprine 5 mg tablet 5 mg PO BID PRN diclofenac sodium 1 % gel 2 g topical QID Rx Instructions: apply to single elbow, wrist or hand; for hand includes palm/fingers/back of hand fluorouracil [Efudex] 5 % cream 1 applic topical BID Rx Instructions: to forehead Enema Disposable 19-7 gram/118 mL enema 118 ml IN BID Hold Instructions: Pt Stopped/Never Started Fiasp FlexTouch U-100 Insulin 100 unit/mL (3 mL) insulin pen 10 unit subcut .5 times a day Rx Instructions: 10-20 units five times a day gabapentin 100 mg capsule 200 mg PO QAM gabapentin 300 mg capsule 300 mg PO QHS ibuprofen 600 mg tablet 600 mg PO TID PRN magnesium citrate 100 mg tablet 100 mg PO BID PRN metformin 500 mg tablet extended release 24 hr 250 mg PO DAILY olmesartan 20 mg tablet 20 mg PO DAILY rosuvastatin 20 mg tablet 20 mg PO DAILY levothyroxine [Synthroid] 137 mcg tablet 137 mcg PO DAILY albuterol sulfate [Ventolin HFA] 90 mcg/actuation HFA aerosol inhaler 2 puff inhalation Q6H PRN acetaminophen 500 mg tablet 1,000 mg PO Q8H PRN (Reason: pain) Qty: 90 3RF lidocaine [Lidocaine Pain Relief] 4 % adhesive patch,medicated TOPICAL Hold Instructions: Pt Stopped/Never Started Patient Comments: APPLY ONE TOPICALLY TO THE SKIN DIRECTED, 12 HOURS ON AND THEN 12 HOURS OFF Trulicity 1.5 mg/0.5 mL Pen Injector 1.5 mg SUBCUT 1XD docusate sodium 100 mg Capsule 100 mg PO 1XD Discharge Instructions Additional Instructions: may restart Trulicity at next scheduled dose you have a stent (blue color) in the ureter and there is a string (black color) attached to the end of the stent - we will remove the stent in the office early next week it is not unusual to see blood in the urine or have discomfort while you urinate as long as the stent is in place F/U appt early next week for stent removal additional f/u appt 6 to 8 weeks with renal US prior to visit Discharge Orders Discharge Orders: Discharge Order (Routine); Ordered 02/29/24 Ordered By: Brett Hernandez DS: Diagnosis Discharge Diagnosis (1) Kidney stones: Status: Chronic (2) Primary hyperparathyroidism: Status: Acute
--- NOTE | 2024-02-29 08:47 | DI.RAD_ITS ---
Exam(s) XR RETROGRADE IN OR EXAM: XR RETROGRADE IN OR CLINICAL HISTORY: left retrograde/uteroscopy stone manipulation. TECHNIQUE: 2D digital imaging was performed. COMPARISON: No exams were available for comparison FINDINGS: Fluoroscopy provided during left retrograde urologic procedure. See procedure report for details. Total fluoroscopy time 27.9 seconds IMPRESSION: Radiation exposure index/cumulative dose: avinash Rios= 18.789 mGy DATA REPOSITORY: RADIATION DOSE DELIVERED:
--- NOTE | 2024-02-29 08:54 | W.PM.OP ---
Date of service: 02/29/24 Time of Service: 08:55 Operative Note Operative Note DATE OF PROCEDURE: 02/29/24 PRE-OP DIAGNOSIS: Kidney stone POST-OP DIAGNOSIS: same PROCEDURE: Cystoscopy, left retrograde pyelogram, left flexible ureteroscopy, holmium laser lithotripsy of left kidney stone, extraction of stone fragment, insert left ureteral stent SURGEON: Brett Hernandez ANESTHESIA TYPE: Local By Surgeon and General LMA/ETT Refer to Anesthesia Record ESTIMATED BLOOD LOSS: 5 PATHOLOGY: other (Stone for chemical analysis) COMPLICATIONS: None Patient was transported to: PACU Patient's condition: stable Implants: 4.8 Martiniquais by 22 to 30 cm left ureteral stent Indications: This is a 59-year-old woman who has a history of spinal stenosis and fibromyalgia. She has chronic left back pain and was identified as having a nonobstructing stone in her left kidney. While it is unlikely that the stone is causing her symptoms, she is interested in having the stone removed to see if any of her pain can be more easily controlled. Findings: Small stone in left midpole calyx Procedure Description: The patient was given preoperative antibiotics and brought to the operating room on 02/29/2024. After successful induction of general anesthesia, she was placed in the dorsal lithotomy position. Her genitalia was prepped and draped. 2% Xylocaine jelly was instilled into the urethra to act as a local anesthetic. A 22 Martiniquais rigid cystoscope was passed through the urethra into the bladder. The urethra and bladder were inspected with a 30 degree lens. Both ureteral orifices appeared normal with no blood coming from either side. We cannulated the left orifice with a 5 Martiniquais access catheter and a retrograde pyelogram was obtained by injecting Omnipaque through the access catheter under fluoroscopic guidance. There was no dilation of the ureter identified. The calyces were well outlined but we did not see any specific filling defects. I then passed a guidewire through the lumen of the access catheter and removed the catheter. A dual-lumen catheter was then advanced over the wire and a second wire was positioned. We chose one of the wires as a working wire and the other as a safety wire. I advanced the ureteral access sheath over the working wire and positioned the tip of the sheath so that it was in the upper ureter. I then passed the flexible ureteroscope through the access sheath and inspected each of the calyces. Previously, the stone was identified in a midpole calyx. We did find a 3 mm stone seem to be embedded in the mucosa in a midpole calyx. I was unable to grasp the stone and a 0 tip stone basket, so used the 272 ?m holmium laser fiber to fragment the stone. We used dusting settings and the stone fragmented quite nicely. We then extracted the largest fragment and a 0 tip stone basket. The stone was sent to pathology for chemical analysis There is no evidence of contrast extravasating from the collecting system or ureter. We elected to place a short-term ureteral stent. We chose a 4.8 Martiniquais stent and advanced it over the safety wire. The stent was positioned with the proximal end curled in the renal pelvis and the distal end curled within the bladder. We left the safety string in place and brought the string through the urethra. We tucked the end of the string into the patient's vaginal cavity. The patient tolerated this procedure well with no complications.
[2024-02-29] MEDS: Phenazopyridine 200 MG TAB PO (10:06)
--- NOTE | 2024-02-29 11:15 | W.ANESPOSTOP ---
Postoperative Evaluation Date, Time and Location Date Performed: 02/29/24 Time Performed: 11:15 Patient Location: Day Surgery Unit Vital Signs Most Recent Imported Vital Signs: Most Recent Vital Signs Temp Pulse Resp BP Pulse Ox 36.4 C L 77 16 140/82 94 02/29/24 10:07 02/29/24 10:07 02/29/24 10:07 02/29/24 10:07 02/29/24 10:07 Pain Score Most Recent Pain Score: Most Recent Pain Score Pain Level 5 02/29/24 10:07 Assessment Mental Status: Awake (Alert & Oriented to Patient Baseline) Airway and Respiratory Function: Patent airway with normal (patient baseline) respiratory exam Cardiovascular Function: Hemodynamically Stable Hydration Status: Adequately Hydrated Nausea & Vomiting: No Nausea or Vomiting Pain: Pain is tolerable per patient Peripheral Nerve Block: Patient did not receive a nerve block
[2024-03-06 23:07] LABS: Source: Left Kidney
== END 2024-02-29 10:54 | disposition home or self-care (01) ==
PROVIDERS: PCP Family Medicine; Visit Provider Urology
PROC: (CPT 52356; principal; 2024-02-29 07:30)
DX: N20.0 Calculus of kidney (principal); E11.42 Type 2 diabetes mellitus with diabetic polyneuropathy; E78.5 Hyperlipidemia, unspecified; E66.01 Morbid (severe) obesity due to excess calories; Z68.41 Body mass index [BMI] 40.0-44.9, adult
CPT/HCPCS: 52356; 74420; 82365; J0131; J0690; J1100; J2405; J2704; Q9967

== ENCOUNTER → 2024-03-07 11:09 | Outpatient (BNVA) | payer MEDICARE, MEDICAID, SELFPAY | PROVIDERS: PCP Family Medicine; Referring Provider Family Medicine; Visit Provider Nurse Practitioner Gerontology | DX: R31.0 Gross hematuria (principal); R82.998 Other abnormal findings in urine | CPT/HCPCS: 81003; 99213 ==

== ENCOUNTER 2024-03-07 11:59 | Outpatient (REF) | payer MEDICARE, MEDICAID, SELFPAY | END 2024-03-07 12:00 | disposition home or self-care (01) | LOC: LBN 11:59 | PROVIDERS: PCP Family Medicine; Visit Provider Nurse Practitioner Gerontology | DX: R31.9 Hematuria, unspecified (principal); B96.89 Other specified bacterial agents as the cause of diseases classified elsewhere | CPT/HCPCS: 87086 ==

== ENCOUNTER 2024-04-02 09:07 | Day surgery (SDC) | payer MEDICARE, MEDICAID, SELFPAY ==
[2024-04-02 09:13] VITALS: BP 133/71; PULSE 82; RESP 16; TEMP 36.4; O2SAT 96
--- NOTE | 2024-04-02 09:33 | W.ANESPRE ---
General Info Date of Service Date Performed: 04/02/24 Height: 5 ft 4 in Weight: 119.1 kg Body Mass Index (BMI): 45.1 Surgical Procedure: Operation Date: 04/02/24 09:50 Proposed Procedure Side Surgeon lauryn Gilbert MD Meds Allergies and Home Medications Allergies Allergy/AdvReac Type Severity Reaction Status Date / Time latex Allergy Severe Skin Rash Verified 04/02/24 09:27 Sulfa (Sulfonamide Allergy Severe vomiting/ra Verified 04/02/24 09:27 Antibiotics) sh/migraine amlodipine AdvReac Severe suicadal Verified 04/02/24 09:27 thoughts fluoxetine HCl [From Prozac] AdvReac Severe anxiety/peggy Verified 04/02/24 09:27 cidal pregabalin [From Lyrica] AdvReac Severe flatulence/ Verified 04/02/24 09:27 suicidal sumatriptan [From Imitrex] AdvReac Severe suicidal Verified 04/02/24 09:27 tramadol AdvReac Severe anxiety,suicidal Verified 04/02/24 09:27 thoughts Home Medication Medication Instructions Recorded mecobalamin (vitamin B12) 1,000 1,000 mcg PO DAILY 11/06/20 mcg chewable tablet acetaminophen 500 mg tablet 1,000 mg (2 x 500 mg) PO Q8H PRN 08/11/21 pain #90 tabs docusate sodium 100 mg capsule 100 mg PO 1XD 08/12/22 dulaglutide 1.5 mg/0.5 mL 1.5 mg subcut 1XD 08/12/22 subcutaneous pen injector (Trulicity) lidocaine 4 % topical patch patch topical 08/12/22 (Lidocaine Pain Relief) duloxetine 30 mg capsule,delayed 60 mg PO DAILY 10/10/23 release loratadine 10 mg tablet 10 mg PO DAILY 10/10/23 albuterol sulfate 90 mcg/actuation 2 puff inhalation Q6H PRN 01/18/24 aerosol inhaler (Ventolin HFA) bisacodyl 5 mg tablet,delayed 5 mg PO BID PRN 01/18/24 release cyclobenzaprine 5 mg tablet 5 mg PO BID PRN 01/18/24 diclofenac sodium 1 % topical gel 2 g topical QID 01/18/24 fluorouracil 5 % topical cream 1 applic topical BID 01/18/24 (Efudex) gabapentin 100 mg capsule 200 mg PO QAM 01/18/24 gabapentin 300 mg capsule 300 mg PO QHS 01/18/24 ibuprofen 600 mg tablet 600 mg PO TID PRN 01/18/24 insulin aspart 10 unit subcut .5 times a day 01/18/24 (niacinamide)(U-100) 100 unit/mL(3 mL) subcutaneous pen (Fiasp FlexTouch U-100 Insulin) insulin glargine 100 unit/mL (3 45 unit subcut BID 01/18/24 mL) subcutaneous pen (Basaglar KwikPen U-100 Insulin) levothyroxine 137 mcg tablet 137 mcg PO DAILY 01/18/24 (Synthroid) magnesium citrate 100 mg tablet 100 mg PO BID PRN 01/18/24 metformin 500 mg tablet,extended 250 mg PO DAILY 01/18/24 release 24 hr olmesartan 20 mg tablet 20 mg PO DAILY 01/18/24 rosuvastatin 20 mg tablet 20 mg PO DAILY 01/18/24 sodium phosphates 19 gram-7 118 ml SC BID 01/18/24 gram/118 mL enema (Enema Disposable) bisacodyl 5 mg tablet,delayed 5 mg PO ONCE Colonoscopy Bowel 02/08/24 release (Dulcolax (bisacodyl)) Prep #4 tabs polyethylene glycol 3350 17 238 g PO ONCE Colonoscopy Bowel 02/08/24 gram/dose oral powder Prep #238 grams oxybutynin chloride 5 mg tablet 5 mg PO BID-TID PRN bladder spasms 02/29/24 #15 tabs Current Visit Medications: Current Medications Generic Name Dose Route Start Last Admin Trade Name Freq PRN Reason Stop Dose Admin Ringer's Solution 1,000 mls @ 80 mls/hr 04/02/24 06:00 IV 04/02/24 23:59 INFUSION JUAN IV Miscellaneous Supplies 1 each 04/02/24 06:00 Iv Access IV 04/02/24 23:59 DIRECTED JUAN Sodium Chloride 0 ml 04/02/24 06:00 Normal Saline Flush 10 Ml Syr IV 04/02/24 23:59 PRN PRN Sodium Chloride 0 ml 04/02/24 06:00 Normal Saline 10 Ml Vial IJ 04/02/24 23:59 DIRECTED PRN Sterile Water 0 ml 04/02/24 06:00 Water,Injection,Sterile 10 Ml Vial IJ 04/02/24 23:59 DIRECTED PRN FOR[facility]LY [facility] Active Problems Active Problems: Problem Status Onset Code Kidney stones N20.0 Coronary atherosclerosis I25.10 Neuropathy G62.9 Primary hyperparathyroidism E21.0 Peripheral venous insufficiency I87.2 Spinal stenosis M48.00 Gram-negative bacteremia R78.81 Nausea & vomiting R11.2 Transaminitis R74.01 Discharge planning issues Z02.9 DVT prophylaxis Z29.9 CAP (community acquired pneumonia) J18.9 History of total right knee replacement 08/11/21 Z96.651 History of total left knee replacement Z96.652 Post-traumatic osteoarthritis of right knee M17.31 Vitamin D deficiency E55.9 Insomnia G47.00 Venous insufficiency I87.2 BMI 45.0-49.9, adult Z68.42 Fibromyalgia M79.7 Actinic keratosis L57.0 Serrated adenoma of colon D12.6 Seborrheic keratosis L82.1 Osteoarthritis of both knees M17.0 Neoplasm of unspecified behavior of bone, soft tissue, and skin D49.2 Surgical menopause 08/23/13 E89.40 Mucous cyst of finger 12/28/15 M67.449 Internal derangement of left knee 05/26/16 M23.92 Hypertension Hypothyroidism Sleep apnea Migraine Diabetes type 2, controlled Medical History Medical History Constipation Major depression Type 2 diabetes mellitus Hx of traumatic brain injury 2008- Slip and fall on ice, head hit twice, saw neuro. 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 Used to have seizures for the first 6-month to a year, no longer has them and has not had a seizure in years. Has migraines frequently Asthma Hiatal hernia Risk for falls Hx of ovarian cyst GERD (gastroesophageal reflux disease) pt. denies Ganglion cyst of wrist Peripheral neuropathy Hyperlipidemia Diarrhea Depression Back pain Urinary incontinence Morbid obesity with BMI of 50.0-59.9, adult Medical History Comments:: Pt. states usually she only has light sedation as she has a hard time coming out of deeper sedation Surgical History Surgical History Hx of cholecystectomy Hx of knee surgery R knee fracture, remove hardware Hx of bilateral oophorectomy History of colonoscopy 02/07/2006 History of gastric bypass ganglion cyst excision Tobacco Smoking/Tobacco Use Status: Never Alcohol Alcohol Intake: current Alcohol intake frequency: holidays/special occasions only Substance Use Substance use: Rarely Substance use type: marijuana Details: Gummies Vital Signs and Lab Results Vital Signs Most Recent Vital Signs in EMR: Most Recent Vital Signs Temp Pulse Resp BP Pulse Ox 36.4 C L 82 16 133/71 96 04/02/24 09:13 04/02/24 09:13 04/02/24 09:13 04/02/24 09:13 04/02/24 09:13 Point of Care Results Point of Care Results: Finger Stick Blood Glucose 157 04/02/24 09:32 Lab Results Blood Type / Crossmatch: No Data to Display Complete Blood Count: No Data to Display Complete Metabolic Panel: No Data to Display Liver Function Panel: No Data to Display Coagulation Panel: No Data to Display Cardiac Panel: No Data to Display Arterial Blood Gas: No Data to Display Venous Blood Gas: No Data to Display Pancreas Panel: No Data to Display Thyroid Panel: No Data to Display Infectious Disease: No Data to Display Blood Cultures: No Data to Display Toxicology Panel: No Data to Display Imaging and Studies Imaging and Studies Study information below may be from another EMR and interpreted by another provider. Please see original notes in EMR for more complete details. EKG Summary: PATIENT NAME: Kelin Galeana UNIT #: [id number] ORDERING PROVIDER: Ana Benson PRIMARY CARE PROVIDER: JUDITH MERAZ MD DATE/TIME OF SERVICE: 09/02/21 1046 : 1965 PERFORMING LOCATION: ER APPROVED REPORT Exam: Resting ECG Reason for Exam: weakness Patient Location: E HR:84 bpm ECG Measurements Heart Rate 84 AXIS SC 168 P 77 QRSd 86 QRS 29 QT 381 T9 QTc 452 Conclusion Sinus rhythm...normal P axis, V-rate 60- 99 Ventricular premature complex...V complex w/ short R-R interval <Electronically signed by MICHAEL BEJARANO MD in OV> E-Sign Date: 09/02/21 E-Sign Time: 1108 ADDENDUM APPROVED REPORT Exam: Resting ECG Reason for Exam: weakness Patient Location: E HR:84 bpm ECG Measurements Heart Rate 84 AXIS SC 168 P 77 QRSd 86 QRS 29 QT 381 T9 QTc 452 Conclusion Sinus rhythm...normal P axis, V-rate 60- 99 Ventricular premature complex...V complex w/ short R-R interval I have reviewed and I agree with the emergency room physician's ECG interpretation. Electronically signed by: <Electronically signed by Ruth Sesay M.D. in [facility]> 09/02/21 1124 Cosigned by: Anesthesia Assessment and Plan Anesthesia History Personal History: PONV and Delayed Emergence Family History: No Family History of Anesthesia Complications Exercise Tolerance Exercise Tolerance: Metabolic Equivalents>4 Pertinent Negatives Pertinent Negatives: No Symptoms of GERD, No Major Cardiovascular Symptoms or Complaints, No Major Pulmonary Symptoms or Complaints and No History of CVA/TIA Cardiac & Pulmonary Exam Cardiac Exam: Normal S1/S2 Heart Sounds Pulmonary Exam: Clear Bilateral Breath Sounds Implantable Cardiac Device Does patient have a Pacemaker or an ICD?: No Airway Exam Known Difficult Airway: No Mallampati Class: 3 Mouth Opening: Normal (> 3cm) Thyromental Distance: Less than 3 cm Neck Range of Motion: Full ROM Neck Circumference: Normal Teeth Condition: Normal Dentition ASA Classification ASA Score: ASA 3 Emergency Case?: No NPO Status NPO Status: NPO Clears >2 hours, Solids >8 hours Anesthesia Plan Resuscitation Status: Full Code Anesthesia Technique: General Anesthesia Airway Planned: Natural Airway Monitors Used: Standard Monitors Preoperative Comments:: Hx of PONV. Plan antiemetic. 59 y/o female with history of depression, back pain, HLD, Type 2 DM, asthma, kidney stones, primary hyperparathyroidisim, HTN, sleep apnea and migraines presents for colonoscopy screening pre-op. Her last screening was in 2020 and was remarkable for sessile serrated adenoma.
[2024-04-02] MEDS: Lactated Ringers 1,000 ML 80 ML IV (09:45)
[2024-04-02 09:58] VITALS: BMI 45.1
--- NOTE | 2024-04-02 10:01 | SCONE_ITS ---
Date of service: 04/02/24 Time of Service: 10:03 Assessment and Plan Assessment and plan (1) Serrated adenoma of colon: Status: Acute Assessment and plan: 59-year-old woman with increased risk factors (SSA) but no symptoms due for surveillance colonoscopy. Overall plan: Surveillance colonoscopy History of Present Illness Narrative: 59-year-old woman is here for surveillance colonoscopy. She had sessile serrated adenomas 3 years ago and is due for surveillance because of that. No family history of colon cancer. Intra-abdominal surgical history of multiple ovarian procedures, gastric bypass as well as cholecystectomy PFSH All Active Problems Kidney stones (Chronic) Coronary atherosclerosis (Acute) Neuropathy (Acute) Primary hyperparathyroidism (Acute) Peripheral venous insufficiency (Acute) Spinal stenosis (Acute) Gram-negative bacteremia (Acute) Discharge planning issues (Acute) DVT prophylaxis (Acute) CAP (community acquired pneumonia) (Acute) History of total right knee replacement (Acute 08/11/21) History of total left knee replacement (Acute) Post-traumatic osteoarthritis of right knee (Acute) Vitamin D deficiency (Acute) Insomnia (Acute) Venous insufficiency (Acute) BMI 45.0-49.9, adult (Acute) Fibromyalgia (Acute) Actinic keratosis (Acute) Serrated adenoma of colon (Acute) Seborrheic keratosis (Acute) Osteoarthritis of both knees (Acute) Neoplasm of unspecified behavior of bone, soft tissue, and skin (Chronic) Surgical menopause (Acute 08/23/13) Mucous cyst of finger (Acute 12/28/15) Internal derangement of left knee (Acute 05/26/16) Hypertension (Chronic) Hypothyroidism (Chronic) Sleep apnea (Chronic) Migraine (Acute) Diabetes type 2, controlled (Chronic) Medical History Constipation Major depression Type 2 diabetes mellitus Hx of traumatic brain injury 2008- Slip and fall on ice, head hit twice, 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 Used to have seizures for the first 6-month to a year, no longer has them and has not had a seizure in years. Has migraines frequently Asthma Hiatal hernia Risk for falls Hx of ovarian cyst GERD (gastroesophageal reflux disease) pt. denies Ganglion cyst of wrist Peripheral neuropathy Hyperlipidemia Diarrhea Depression Back pain Urinary incontinence Morbid obesity with BMI of 50.0-59.9, adult Surgical History Hx of cholecystectomy Hx of knee surgery R knee fracture, remove hardware Hx of bilateral oophorectomy History of colonoscopy 02/07/2006 History of gastric bypass ganglion cyst excision Family History Brother Hypertension Diabetes Hyperlipidemia Obesity Father , age 60 No problems noted. 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 [place] Current gender identity: female What is your relationship status?: Panel score (0-1 are the most socially isolated patients): 0 Do you feel safe at home: Yes Do you feel safe in your relationship?: Yes Additional Social history: lives alone Exam Narrative Exam Narrative: General: Nontoxic, comfortable and interactive Neuro: Alert and oriented x 3 Psych: Good mood and affect, good insight and understanding into her condition Chest: Nonlabored breathing Heart: Regular Results Last Vital Signs Temp 97.5 F L 04/02/24 09:13 Pulse 82 04/02/24 09:13 Resp 16 04/02/24 09:13 BP 133/71 04/02/24 09:13 Pulse Ox 96 04/02/24 09:13
[2024-04-02 10:44] VITALS: BP 99/47; PULSE 69; RESP 16; TEMP 35.9; O2SAT 96
--- NOTE | 2024-04-02 10:49 | COLE_ITS ---
Date of service: 04/02/24 Time of Service: 10:49 Colonoscopy Report Procedure Description: PROCEDURES PERFORMED: 1. Colonoscopy PREOPERATIVE DIAGNOSIS: Surveillance colonoscopy, sessile serrated adenomas POSTOPERATIVE DIAGNOSIS: Minimal sigmoid diverticulosis, grade 1 internal hemo rrhoids SURGEON: Miah Gilbert MD INDICATION FOR PROCEDURE: the patient is a 59-year-old woman with a history of sessile serrated adenoma removal on last colonoscopy 3 years ago. She does not have a family history of colon cancer. She has no symptoms. FINDINGS: The terminal ileum was normal. No new polyps were found today. The prep was inadequate in a couple of areas and small polyps could have been missed. Large polyps and/or tumors would not have been missed. There are minimal/early diverticular changes present in the sigmoid colon. There are mild grade 1 internal hemorrhoids visible. SURVEILLANCE interval/FOLLOW-UP: 3 years because of the history and the relatively poor prep, next time with an extended prep SPECIMENS: None EBL: Minimal COMPLICATIONS: None QUALITY of prep: Mostly adequate, a couple of scattered areas were inadequate with formed stool and small polyps could have been missed. Procedure in detail: The patient gave written consent and was in agreement with the indications, the potential risks as well as the benefits of the procedure. They were taken to the endoscopy suite and laid in the left lateral decubitus position. A timeout was performed and anesthesia was administered which was tolerated well. I started the procedure. Digital rectal and visual examination was performed and grossly within normal limits. A well-lubricated flexible colonoscope was then introduced and passed without any notable difficulty all the way to the cecum identified by the ileocecal valve and the appendiceal orifice. The terminal ileum was briefly intubated and normal. The scope was then slowly withdrawn with the above-noted findings. The patient tolerated the procedure well and was taken to the PACU in hemodynamically stable condition.
--- NOTE | 2024-04-02 10:52 | W.PM.DSUDISC ---
Date of service: 04/02/24 Time of Service: 10:52 Discharge Plan Disposition Patient Disposition: Home Condition: Good Discharge Details Attending Provider: Matt Gilbert Primary Care Provider: Phoebe Denise Home Meds and New Rx's Prescriptions: No Action bisacodyl [Dulcolax (bisacodyl)] 5 mg tablet,delayed release (DR/EC) 5 mg PO ONCE Qty: 4 0RF Rx Instructions: Colonoscopy Bowel Prep- Per Instructions polyethylene glycol 3350 17 gram/dose powder 238 g PO ONCE Qty: 238 0RF Rx Instructions: Colonoscopy Bowel Prep- Per Instructions oxybutynin chloride 5 mg tablet 5 mg PO BID-TID PRN (Reason: bladder spasms) Qty: 15 0RF mecobalamin (vitamin B12) 1,000 mcg tablet,chewable 1,000 mcg PO DAILY duloxetine 30 mg capsule,delayed release(DR/EC) 60 mg PO DAILY loratadine 10 mg tablet 10 mg PO DAILY insulin glargine [Basaglar KwikPen U-100 Insulin] 100 unit/mL (3 mL) insulin pen 45 unit subcut BID bisacodyl 5 mg tablet,delayed release (DR/EC) 5 mg PO BID PRN cyclobenzaprine 5 mg tablet 5 mg PO BID PRN diclofenac sodium 1 % gel 2 g topical QID Rx Instructions: apply to single elbow, wrist or hand; for hand includes palm/fingers/back of hand fluorouracil [Efudex] 5 % cream 1 applic topical BID Rx Instructions: to forehead Enema Disposable 19-7 gram/118 mL enema 118 ml CA BID Hold Instructions: Pt Stopped/Never Started Fiasp FlexTouch U-100 Insulin 100 unit/mL (3 mL) insulin pen 10 unit subcut .5 times a day Rx Instructions: 10-20 units five times a day gabapentin 100 mg capsule 200 mg PO QAM gabapentin 300 mg capsule 300 mg PO QHS ibuprofen 600 mg tablet 600 mg PO TID PRN magnesium citrate 100 mg tablet 100 mg PO BID PRN metformin 500 mg tablet extended release 24 hr 250 mg PO DAILY olmesartan 20 mg tablet 20 mg PO DAILY rosuvastatin 20 mg tablet 20 mg PO DAILY levothyroxine [Synthroid] 137 mcg tablet 137 mcg PO DAILY albuterol sulfate [Ventolin HFA] 90 mcg/actuation HFA aerosol inhaler 2 puff inhalation Q6H PRN acetaminophen 500 mg tablet 1,000 mg PO Q8H PRN (Reason: pain) Qty: 90 3RF lidocaine [Lidocaine Pain Relief] 4 % adhesive patch,medicated TOPICAL Hold Instructions: Pt Stopped/Never Started Patient Comments: APPLY ONE TOPICALLY TO THE SKIN DIRECTED, 12 HOURS ON AND THEN 12 HOURS OFF Trulicity 1.5 mg/0.5 mL Pen Injector 1.5 mg SUBCUT 1XD docusate sodium 100 mg Capsule 100 mg PO 1XD Discharge Instructions Additional Instructions: FINDINGS: No new polyps were found today. I recommend repeating another colonoscopy in 3 years because of the type of polyps she had last time and there were some areas in your colon that were not completely cleaned out and SMALL polyps could have been missed in theory. Stand Alone Forms: Anesthesia Discharge Inst., Colonoscopy Post Instructions, Joshua Banuelos (DSU) Activity:: Activity as Tolerated Diet:: As Tolerated DS: Diagnosis Discharge Diagnosis (1) Serrated adenoma of colon: Status: Acute
--- NOTE | 2024-04-02 10:54 | W.ANESPOSTOP ---
Postoperative Evaluation Date, Time and Location Date Performed: 04/02/24 Time Performed: 10:54 Patient Location: Day Surgery Unit Vital Signs Most Recent Imported Vital Signs: Most Recent Vital Signs Temp Pulse Resp BP Pulse Ox 35.9 C L 69 16 99/47 L 96 04/02/24 10:44 04/02/24 10:44 04/02/24 10:44 04/02/24 10:44 04/02/24 10:44 Pain Score Most Recent Pain Score: Most Recent Pain Score Pain Level 0 04/02/24 10:44 Assessment Mental Status: Awake (Alert & Oriented to Patient Baseline) Airway and Respiratory Function: Patent airway with normal (patient baseline) respiratory exam Cardiovascular Function: Hemodynamically Stable Hydration Status: Adequately Hydrated Nausea & Vomiting: No Nausea or Vomiting Pain: Pt. Denies Any Pain Peripheral Nerve Block: Patient did not receive a nerve block
[2024-04-02 11:18] VITALS: BP 132/85; PULSE 73; RESP 16; TEMP 36.2; O2SAT 95
== END 2024-04-02 11:25 | disposition home or self-care (01) ==
PROVIDERS: PCP Family Medicine; Visit Provider Student in an Organized Health Care Education/Training Program
PROC: 0DJD8ZZ Inspection of Lower Intestinal Tract, Via Natural or Artificial Opening Endoscopic (ICD-10-PCS; CPT 45378; principal; 2024-04-02 09:45)
DX: Z12.11 Encounter for screening for malignant neoplasm of colon (principal); K57.30 Diverticulosis of large intestine without perforation or abscess without bleeding; K64.0 First degree hemorrhoids
CPT/HCPCS: G0105; 00123; J2001; J2405; J2704

== ENCOUNTER 2024-04-18 12:34 | Emergency (ER) | payer MEDICARE, MEDICAID, SELFPAY ==
[2024-04-18 12:36] VITALS: BP 149/77; PULSE 81; RESP 17; TEMP 36.3; O2SAT 97
--- NOTE | 2024-04-18 13:00 | DI.CT_ITS ---
Exam(s) CT RENAL COLIC WO EXAM: CT RENAL COLIC WO CLINICAL HISTORY: LEFT FLANK PAIN. TECHNIQUE: Imaging Protocol: Axial computed tomography images with coronal and sagittal reformatted images were created and reviewed. COMPARISON: CT CT RENAL COLIC WO from 01/20/2023 FINDINGS: ABDOMEN: Lung Bases: Normal where visualized. Liver: Normal density. No measurable mass. Gallbladder and biliary tract: Status post cholecystectomy. No significant biliary ductal dilatation . Pancreas: Normal density, no abnormal calcifications or inflammatory process. Spleen: Normal. Kidneys: Normal size, contour and axis.No radiodense stones or obstructive uropathy. There is a stabl e cyst in the left kidney. No follow-up is recommended. There is stable mild cortical atrophy of th e inferior right kidney. Adrenal glands: No mass is seen. Lymph nodes: Within normal limits. Abdominal Aorta: Abdominal portion non-dilated. Atherosclerotic calcification is present. PELVIS: Bladder:Symmetric distention, no gross wall thickening. Bowel: No obstruction or bowel wall thickening. There are postsurgical changes seen in the stomach. A normal appendix is present. Peritoneal cavity: No ascites, collection or mesenteric inflammatory response. No free air. Reproductive organs: Unremarkable as visualized. Bones: Within normal limits. Soft Tissues: Within normal limits. IMPRESSION: 1. No evidence of nephrolithiasis or obstructive uropathy. 2. No acute abdominal or pelvic process. RADIATION DOSE DELIVERED: 1,788.27mGy.cm Total DLP DATA REPOSITORY: All CT scans at this facility are submitted to the National Radiology Data Registry (NRDR) Dose Index Registry (DIR) with the [employer] ([employer]). RADIATION OPTIMIZATION: All CT scans at this facility use at least one of these dose optimization te chniques: automated exposure control; mA and/or kV adjustment per patient size (includes targeted exa ms where dose is matched to clinical indication); or iterative reconstruction.
[2024-04-18 13:01] VITALS: PULSE 79; RESP 15
[2024-04-18 13:06] VITALS: BP 133/67; PULSE 75; PULSE 79; RESP 16
[2024-04-18 13:06] LABS: Bilirubin Negative (Negative); Blood Large (Negative); Clarity Cloudy (Clear); Glucose >=1000 mg/dL (Negative); Ketones Trace mg/dL (Negative); Leukocyte Esterase Small (Negative); Nitrite Negative (Negative); Specific Gravity >= 1.030 (1.005-1.025); Urobilinogen 0.2 mg/dL (Up to 0.2)
[2024-04-18 13:10] VITALS: PULSE 78; RESP 13
[2024-04-18 13:10] LABS: C & S Indicated? C&S Done As Ordered; RBC >50 HPF (0-2)
[2024-04-18 13:20] LABS: Abs Immature Grans 0.04 10^3/uL (0.0-0.06); Absolute Basophil Count 0.04 10^3/uL (0.0-0.2); Absolute Eosinophil Count 0.18 10^3/uL (0.0-0.7); Absolute Lymphocyte Count 2.05 10^3/uL (1.2-3.4); Absolute Monocyte Count 0.48 10^3/uL (0.1-0.8); Absolute Neutrophil Count 7.33 10^3/uL (1.2-6.7); Basophils % 0.4 %; Eosinophils % 1.8 %; HCT 43.4 % (36.0-46.0); HGB 14.7 g/dL (11.2-15.7); Immature Grans % 0.4 %; Lymphocytes % 20.3 %; MCH 29.2 pg (27.0-33.0); MCHC 33.9 % (32.0-36.0); MCV 86 fL (80-95); MPV 10.8 fL (8.0-11.0); Monocytes % 4.7 %; Neutrophils % 72.4 %; Platelet Count 212 10^3/uL (130-400); RBC 5.03 10^6/uL (3.93-5.22); RDW 12.8 % (11.7-14.6); WBC 10.12 10^3/uL (4.4-10.8)
[2024-04-18] MEDS: Ketorolac 15 MG/ML VIAL 10 MG IVP (13:30)
[2024-04-18 13:36] LABS: Anion Gap 6.7 mmol/L (3-11); BUN 18 mg/dL (7-18); CO2 28.3 mmol/L (21.0-32.0); CREATININE 0.6 mg/dL (0.55-1.02); Calcium 9.6 mg/dL (8.5-10.1); Chloride 107 mmol/L (98-107); Estimated GFR 102.69 (mL/min/1.73m2); Glucose 255 mg/dL (74-106); Potassium 4.2 mmol/L (3.5-5.1); Sodium 142 mmol/L (136-145)
[2024-04-18 14:23] VITALS: BP 138/64; PULSE 99; RESP 16; TEMP 36.6; O2SAT 98
[2024-04-18 16:25] VITALS: BP 134/64; PULSE 74; RESP 18; TEMP 36.9; O2SAT 96
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
== END 2024-04-18 16:44 | disposition home or self-care (01) ==
PROVIDERS: Emergency Provider Emergency Medicine; PCP Family Medicine
DX: R10.9 Unspecified abdominal pain (principal); R31.9 Hematuria, unspecified; Z98.890 Other specified postprocedural states
CPT/HCPCS: 36416; 80048; 82962; 96374; 99284; 74176; 81003; 81015; 85025; 87086; J1885

== ENCOUNTER → 2024-04-19 10:00 | Outpatient (BNVA) | payer MEDICARE, MEDICAID, SELFPAY | PROVIDERS: PCP Family Medicine; Referring Provider Family Medicine; Visit Provider Urology | DX: N20.0 Calculus of kidney (principal) | CPT/HCPCS: 99213 ==

== ENCOUNTER → 2024-05-07 12:44 | Outpatient (BNVA) | payer MEDICARE, MEDICAID, SELFPAY | PROVIDERS: PCP Family Medicine; Referring Provider Family Medicine; Visit Provider Nurse Practitioner Gerontology | DX: R31.0 Gross hematuria (principal); R82.998 Other abnormal findings in urine | CPT/HCPCS: 81003; 99213 ==

== ENCOUNTER 2024-05-07 13:30 | Outpatient (REF) | payer MEDICARE, MEDICAID, SELFPAY | END 2024-05-07 13:31 | disposition home or self-care (01) | LOC: LBN 13:30 | PROVIDERS: PCP Family Medicine; Visit Provider Nurse Practitioner Gerontology | DX: R31.9 Hematuria, unspecified (principal) | CPT/HCPCS: 87086 ==

== ENCOUNTER 2024-06-05 12:52 | Outpatient (REF) | payer MEDICARE, MEDICAID, SELFPAY ==
[2024-06-05 16:02] LABS: Anion Gap 8.2 mmol/L (3-11); BUN 15 mg/dL (7-18); CO2 27.8 mmol/L (21.0-32.0); CREATININE 0.7 mg/dL (0.55-1.02); Calcium 9.7 mg/dL (8.5-10.1); Chloride 105 mmol/L (98-107); Estimated GFR 98.95 (mL/min/1.73m2); Glucose 168 mg/dL (74-106); Potassium 4.2 mmol/L (3.5-5.1); Sodium 141 mmol/L (136-145); TSH (W/Ref FT4) 6.79 uIU/mL (0.36-3.74)
[2024-06-05 16:20] LABS: Hemoglobin A1C 7.3 % (<5.7)
[2024-06-05 16:31] LABS: FREE T4 1.07 ng/dL (0.76-1.46)
== END 2024-06-05 12:53 | disposition home or self-care (01) ==
LOC: NCHCN 12:52
PROVIDERS: PCP Family Medicine; Visit Provider Family Medicine
DX: E11.69 Type 2 diabetes mellitus with other specified complication (principal)
CPT/HCPCS: 80048; 83036; 84439; 84443

== ENCOUNTER 2024-06-06 13:52 | Outpatient (CLI) | payer MEDICARE, MEDICAID, SELFPAY ==
--- NOTE | 2024-06-06 15:19 | DI.RAD_ITS ---
Exam(s) XR HIP RT COMPLETE AP PELVIS EXAM: XR HIP RT COMPLETE AP PELVIS CLINICAL HISTORY: PAIN IN R HIP JOINT, M25.551. TECHNIQUE: 2D digital imaging was performed of the right hip. Three images were obtained. AP pelvis and lateral right hip views were obtained. COMPARISON: CR XR HIP RT COMPLETE AP PELVIS from 07/08/2020 CR XR DEXA BONE DENSITY W/WO SALVADOR from 02/23/2023 FINDINGS: BONES: No acute fracture is present. No bony destructive lesion is seen. JOINTS: No dislocation present. The hip joints are well maintained. There is mild spurring seen at t he sacroiliac joints bilaterally. Moderate degenerative changes are seen in the lower visualized lum bar spine. SOFT TISSUE: Normal. IMPRESSION: 1. There are degenerative changes seen in the lower lumbar spine and the sacroiliac joints. 2. The right hip is well maintained. DATA REPOSITORY: RADIATION DOSE DELIVERED:
== END 2024-06-06 14:12 ==
LOC: DI 13:52
PROVIDERS: PCP Family Medicine; Visit Provider Family Medicine
DX: M16.11 Unilateral primary osteoarthritis, right hip (principal)
CPT/HCPCS: 73502

== ENCOUNTER 2024-10-04 13:48 | Outpatient (CLI) | payer MEDICARE, MEDICAID, SELFPAY ==
--- NOTE | 2024-10-04 | DI.RAD_ITS ---
Exam(s) XR SHOULDER RT COMPLETE 2+V EXAM: XR SHOULDER RT COMPLETE 2+V CLINICAL HISTORY: Rt shoulder pain. TECHNIQUE: 2D digital imaging was performed of the right shoulder. Five images were obtained. AP, Grashey, Y-view and axillary views were obtained. COMPARISON: There are no priors for comparison. FINDINGS: BONES: No acute fracture is present. No bony destructive lesion is seen. JOINTS: No dislocation present. There are mild degenerative changes seen at the acromioclavicular emery nt. There is mild spurring at the lateral aspect of the greater tuberosity. There also mild degener ative changes seen at the glenohumeral joint with spurring seen at the inferior glenoid. SOFT TISSUE: Normal. IMPRESSION: Mild degenerative changes of the shoulder. DATA REPOSITORY: RADIATION DOSE DELIVERED:
== END 2024-10-04 14:08 ==
LOC: DI 13:50
PROVIDERS: PCP Family Medicine; Visit Provider Family Medicine
DX: M19.011 Primary osteoarthritis, right shoulder (principal)
CPT/HCPCS: 73030

== ENCOUNTER 2025-02-21 09:56 | Outpatient (REF) | payer MEDICARE, MEDICAID, SELFPAY ==
[2025-02-21 17:16] LABS: Anion Gap 5.5 mmol/L (3-11); BUN 24 mg/dL (7-18); CO2 31.5 mmol/L (21.0-32.0); CREATININE 0.8 mg/dL (0.55-1.02); Calcium 10.4 mg/dL (8.5-10.1); Chloride 104 mmol/L (98-107); Estimated GFR 83.78 (mL/min/1.73m2); Glucose 199 mg/dL (74-106); Potassium 5.3 mmol/L (3.5-5.1); Sodium 141 mmol/L (136-145)
[2025-02-25 20:39] LABS: Vitamin D 25 Total 14 ng/mL (30-100)
== END 2025-02-21 09:57 | disposition home or self-care (01) ==
LOC: NCHCN 09:56
PROVIDERS: PCP Family Medicine; Visit Provider Family Medicine
DX: E83.52 Hypercalcemia (principal); I10 Essential (primary) hypertension
CPT/HCPCS: 80048; 82306

== ENCOUNTER 2025-03-14 22:20 | Outpatient (REF) | payer MEDICARE, MEDICAID, SELFPAY | END 2025-03-14 22:21 | disposition home or self-care (01) | LOC: NCHCN 22:20 | PROVIDERS: PCP Family Medicine; Visit Provider Nurse Practitioner Family | DX: R30.0 Dysuria (principal); B96.29 Other Escherichia coli [E. coli] as the cause of diseases classified elsewhere | CPT/HCPCS: 87077; 87086; 87186 ==

== ENCOUNTER 2025-06-20 21:54 | Outpatient (REF) | payer MEDICARE, MEDICAID, SELFPAY ==
[2025-06-20 22:32] LABS: WBC 20-50 HPF (0-5)
== END 2025-06-20 21:55 | disposition home or self-care (01) ==
LOC: LBN 21:54
PROVIDERS: PCP Family Medicine; Visit Provider Physician Assistant Medical
DX: R39.15 Urgency of urination (principal)
CPT/HCPCS: 87077; 81015; 87086; 87186; 87480; 87510; 87660